=== PATIENT | female | born 1945 | race Hispanic/Latino ===

== ENCOUNTER 2018-02-01 07:29 | Day surgery (SDC) | payer OTHER ==
--- OUTSIDE RECORDS SUMMARY | 2018-02-01 07:31 | XMS REPORT ---
:1945 [facility] Team Providers Name Role Phone Maddy Youngblood Provider Role Unavailable Allergies, Adverse Reactions, Alerts Substance Reaction Event Type N.K.D.A. 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 Problem Incontinence of urine R32 Active Problem Frequency-urgency syndrome N31.8 Active Problem Anemia, unspecified type D64.9 Active Problem Stress incontinence N39.3 Active Problem Hyperlipidemia, mixed E78.2 Active Problem Occlusion and stenosis of I65.29 Active unspecified carotid artery Problem Melanotic stools K92.1 Active Problem Overactive bladder N32.81 Active Assessment Frequency-urgency syndrome N31.8 Active Problem History of carotid endarterectomy Z98.890 Active Assessment Stress incontinence N39.3 Active Problem PAD (peripheral artery disease) I73.9 Active Assessment Itching in the vaginal area N89.8 Active Problem Diabetes type 2, uncontrolled E11.65 Active Medications Medication Code Code Instructions Start End Date Status Dosage System Date Diflucan [facility] 73085857297 150 MG Orally January 02, Active 1 tablet Once a day 2017 Estrace [facility] 26130041912 0.1 MG/GM January 02, Active as Vaginal twice 2018 directed weekly Clopidogrel [facility] 58205271893 75 MG Orally Active 1 tablet Bisulfate Once a day Farxiga [facility] 77941273086 10mg By Mouth Active 1 Daily Metformin HCl [facility] 90713015379 1000 MG Orally Active 1 tablet Twice a day with meals -81 [facility] 40586397793 81 MG Orally Active 1 tablet Once a day Lisinopril [facility] 29462721130 10 MG Orally Active 1 tablet Once a day Metoprolol [facility] 73093143320 25 MG Orally Active 1 tablet Tartrate Twice a day with food Vytorin [facility] 12445628041 10-20 MG Orally Active 1 tablet Once a day Oxybutynin [facility] [address]-35 3.9 MG/24HR January 02September Active 1 patch to Transdermal Two 2017 skin times a Week Results Name Result Date Reference Range Unit Abnormality Flag URINALYSIS AUTO W/O SCOPE (91931) ----LATA neg 20180102 ----NIT neg 20180102 ----PROTEIN neg 20180102 ----pH 5.0 20180102 ----BLO trace 20180102 ----GLUCOSE 2+ 20180102 ----BILIRUBIN neg 20180102 ----KETONES neg 20180102 ----SPECIFIC GRAVITY 1.010 20180102 PVR ----PVR 0 20180102 Summary Purpose eClinicalWorks Submission
--- OUTSIDE RECORDS SUMMARY | 2018-02-01 07:31 | XMS REPORT ---
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 Problem History of carotid endarterectomy Z98.890 Active Problem Hyperlipidemia, mixed E78.2 Active Problem Occlusion and stenosis of I65.29 Active unspecified carotid artery Assessment History of carotid endarterectomy Z98.890 Active Assessment 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 89519720347 1000 MG Orally Active 1 tablet Twice a day with meals Farxiga [facility] 35671774152 10mg By Mouth October 10, December 09, Active 1 Daily 2017 2017 Metoprolol [place] 24200036431 25 MG Orally Active 1 tablet Tartrate Twice a day with food Aspir-81 [facility] 76048774242 81 MG Orally Active 1 tablet Once a day Vytorin [facility] 70047960138 10-20 MG Orally Active 1 tablet Once a day Clopidogrel [facility] 80600444872 75 MG Orally Active 1 tablet Bisulfate Once a day Lisinopril [facility] 33291302055 10 MG Orally Active 1 tablet Once a day Results No Known Results Summary Purpose eClinicalWorks Submission
--- OUTSIDE RECORDS SUMMARY | 2018-02-01 07:31 | XMS REPORT ---
:1945 Author Organization eClinicalWorks Care Team Providers Name Role Phone Louis Garcia Provider Role Unavailable Allergies, Adverse Reactions, Alerts [...] K92.1 Active Problem Overactive bladder N32.81 Active Problem History of carotid endarterectomy Z98.890 Active Assessment Anemia, unspecified type D64.9 Active Problem PAD (peripheral artery disease) I73.9 Active Assessment Encounter for screening colonoscopy Z12.11 Active Problem Diabetes type 2, uncontrolled E11.65 Active Medications Medication Code Code Instructions Start End Date Status Dosage System Date [facility] 06135982101 10mg By Mouth Active 1 Daily Clopidogrel [facility] 54400995110 75 MG Orally Active 1 tablet Bisulfate Once a day Lisinopril [facility] 42474937977 10 MG Orally Active 1 tablet Once a day Oxybutynin [facility] [address]-83 3.9 MG/24HR January 02September Active 1 patch to Transdermal Two 2017 skin times a Week Metformin HCl ND 58070351233 1000 MG Orally Active 1 tablet Twice a day with meals - [facility] 69484355184 81 MG Orally Active 1 tablet Once a day Diflucan [facility] 90991312280 150 MG Orally January 02, Active 1 tablet Once a day 2018 Estrace [facility] 45185595554 0.1 MG/GM January 02, Active as Vaginal twice 2018 directed weekly Metoprolol [facility] 99134578469 25 MG Orally Active 1 tablet Tartrate Twice a day with food Vytorin [facility] 63173775890 10-20 MG Orally Active 1 tablet Once a day Results No Known Results Summary Purpose eClinicalWorks Submission
--- OUTSIDE RECORDS SUMMARY | 2018-02-01 07:31 | XMS REPORT ---
:1945 Author Organization eClinicalWorks Care Team Providers Name Role Phone Louis Garcia Provider Role Unavailable Allergies No Known Allergies [...] History of carotid endarterectomy Z98.890 Active Problem PAD (peripheral artery disease) I73.9 Active Problem Diabetes type 2, uncontrolled E11.65 Active Medications No Known Medications Results No Known Results Summary Purpose eClinicalWorks Submission
--- OUTSIDE RECORDS SUMMARY | 2018-02-01 07:31 | XMS REPORT ---
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 Problem Incontinence of urine R32 Active Problem Hyperlipidemia, mixed E78.2 Active Problem Occlusion and stenosis of I65.29 Active unspecified carotid artery Assessment Occlusion and stenosis of I65.29 Active unspecified carotid artery Assessment Hyperlipidemia, mixed E78.2 Active Assessment History of carotid endarterectomy Z98.890 Active Assessment 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 Assessment Anemia, unspecified type D64.9 Active Assessment Overactive bladder N32.81 Active Assessment Benign essential HTN I10 Active Assessment Diabetes type 2, uncontrolled E11.65 Active Assessment Melanotic stools K92.1 Active Problem History of carotid endarterectomy Z98.890 Active Medications Medication Code Code Instructions Start End Status Dosage System Date Date Lisinopril [facility] 95613949835 10 MG Orally Active 1 tablet Once a day Metformin HCl [facility] 25566730113 1000 MG Orally Active 1 tablet Twice a day with meals Metoprolol [facility] 59051299159 25 MG Orally Active 1 tablet Tartrate Twice a day with food Vytorin [facility] 50676404445 10-20 MG Orally Active 1 tablet Once a day Clopidogrel [facility] 36374901644 75 MG Orally Active 1 tablet Bisulfate Once a day Farxiga [facility] 89424775112 10mg By Mouth Active 1 Daily Aspir-81 [facility] 58814139379 81 MG Orally Active 1 tablet Once a day Results No Known Results Summary Purpose eClinicalWorks Submission
[2018-02-01] MEDS ORDERED: NA CHLORIDE 0.9% 1,000 ML ONE (07:37)
[2018-02-01] MEDS ORDERED: LIDOCAINE 1% MPF 5 ML VIAL ONE (08:26)
[2018-02-01] MEDS ORDERED: PROPOFOL 200 MG/20 ML VIAL IV ONE (08:26)
[2018-02-01] MEDS ORDERED: EPHEDRINE SULF 50 MG/10 ML SYR ONE (08:56)
[2018-02-01] MEDS ORDERED: EPHEDRINE SULF 50 MG/ML SYR ONE (08:56)
[2018-02-01] MEDS ORDERED: NS 0.9% VIAL 10 ML ONE (08:57)
--- NOTE | 2018-02-08 09:23 | ENDO RPT ---
[address], [address] EGD PROCEDURE REPORT EXAM DATE: 02/01/2018 PATIENT NAME: Sherri Parekh MR#: [id number] BIRTHDATE: 1945 ATTENDING: Louis Garcia DR STATUS: outpatient PERSONAL FINANCE INSTRUCTOR: Elizabeth Wagner and Mercedez Phillip RN INDICATIONS: The patient is a 73 yr old Female here for an EGD due to anemia PROCEDURE PERFORMED: EGD with biopsy for H. pylori MEDICATIONS: Per Anesthesia. TOPICAL ANESTHETIC: none CONSENT: The patient understands the risks and benefits of the procedure and understands that these risks include, but are not limited to: sedation, allergic reaction, infection, perforation and/or bleeding. Alternative means of evaluation and treatment include, among others: physical exam, x-rays, and/or surgical intervention. The patient elects to proceed with this endoscopic procedure. DESCRIPTION OF PROCEDURE: During intra-op preparation period all mechanical medical equipment was checked for proper function. Hand hygiene and appropriate measures for infection prevention was taken. Procedure, possible complications, and alternatives including but not limited to the possibility of bleeding, perforation, tear, infection, sepsis, need for surgery, need for blood transfusion, and anesthesia related complications were explained to the patient. After the risks, benefits and alternatives of the procedure were thoroughly explained, Informed consent was verified, confirmed and timeout was successfully executed by the treatment team. The patient was placed in the left lateral position. The patient was anesthetized with topical anesthesia. Through the anesthetized oropharyngeal area, the scope was passed without any difficulty. The [id number] ([id number]) endoscope was introduced through the mouth and advanced to the second portion of the duodenum. Retroflexed views revealed no abnormalities. The gastroscope was then slowly withdrawn and removed. Duodenitis was found in the bulb of the duodenum. A biopsy for H. pylori was taken. Mild gastritis was found in the body and the antrum of the stomach. A biopsy for H. pylori was taken. Multiple erosions were found in the body and the antrum of the stomach. A biopsy for H. pylori was taken. ADVERSE EVENTS: There were no complications. IMPRESSIONS: 1. Duodenitis was found in the bulb of the duodenum 2. Mild gastritis was found in the body and the antrum of the stomach 3. Multiple erosions were found in the body and the antrum of the stomach RECOMMENDATIONS: 1. anti-reflux regimen 2. await biopsy results 3. avoid NSAIDS 4. Pepcid 40 mg qd 5. follow-up: office 2 week(s) REPEAT EXAM: Louis Garcia DR eSigned: Louis Garcia DR 02/08/2018 9:15 AM cc: CPT CODES: ICD9 CODES: PATIENT NAME: Sherri Parekh MR#: [id number]
--- NOTE | 2018-02-08 09:23 | ENDO RPT ---
[address], [address] COLONOSCOPY PROCEDURE REPORT EXAM DATE: 02/01/2018 PATIENT NAME: Sherri Parekh MR #: [id number] BIRTHDATE: 1945 ATTENDING: Louis Garcia DR STATUS: outpatient CHILD CARE DEVELOPMENT SPECIALIST: Elizabeth Wagner and Mercedez Phillip RN INDICATIONS: The patient is a 72 yr old Female here for a colonoscopy due to colon cancer screening PROCEDURE PERFORMED: Colonoscopy with biopsy - cold polypectomy MEDICATIONS: Per Anesthesia. ESTIMATED BLOOD LOSS: None CONSENT: The patient understands the risks and benefits of the procedure and understands that these risks include, but are not limited to: sedation, allergic reaction, infection, perforation and/or bleeding. Alternative means of evaluation and treatment include, among others: physical exam, x-rays, and/or surgical intervention. The patient elects to proceed with this endoscopic procedure. DESCRIPTION OF PROCEDURE: During intra-op preparation period all mechanical medical equipment was checked for proper function. Hand hygiene and appropriate measures for infection prevention was taken. Procedure, possible complications, alternatives including, but not limited to possibility of bleeding, perforation, tear, infection, sepsis, need for surgery, need for blood transfusion, were explained to the patient. After the risks, benefits and alternatives of the procedure were thoroughly explained, Informed consent was verified, confirmed and timeout was successfully executed by the treatment team. The patient was placed in the left lateral position. A digital rectal exam was performed and revealed internal hemorrhoids. After appropriate level of anesthesia, the scope was passed. The [id number] ([id number]) and EC-[id number] ([id number]) endoscope was introduced through the anus and advanced to the cecum, which was identified by both the appendix and ileocecal valve. The quality of the prep was fair. The instrument was then slowly withdrawn as the colon was fully examined. Scope withdrawal time was 10 minutes. COLON FINDINGS: A small smooth semi-pedunculated polyp was found in the sigmoid colon. A polypectomy was performed with cold forceps. The resection was complete, the polyp tissue was completely retrieved and sent to histology. Moderate diverticulosis was noted in the sigmoid colon. No bleeding was noted from the diverticulosis. Retroflexed views revealed no abnormalities. The scope was then completely withdrawn from the patient and the procedure terminated. ADVERSE EVENTS: There were no complications. IMPRESSIONS: 1. Diverticulosis 2. Diverticulosis/sigmoid colon 3. Sigmoid polyp 4. S/p snare polypectomy RECOMMENDATIONS: 1. follow-up: office 2 week(s) 2. avoid NSAIDS for 2 weeks 3. await biopsy results 4. increase dietary water 5. low fiber / diverticular diet RECALL: Return in 5 year(s) for Colonoscopy, pending biopsy results. Louis Garcia DR eSigned: Louis Garcia DR 02/08/2018 9:20 AM cc: CPT CODES: ICD9 CODES: PATIENT NAME: Sherri ParekhAviva MR#: [id number]
== END 2018-02-01 09:40 | disposition home or self-care (01) ==
LOC: OR 07:29
PROVIDERS: ATTEND Surgery
PROC: 0DBN8ZX Excision of Sigmoid Colon, Via Natural or Artificial Opening Endoscopic, Diagnostic (ICD-10-PCS; principal; 2018-02-01 08:30)
DX: Z12.11 Encounter for screening for malignant neoplasm of colon (principal); Z80.0 Family history of malignant neoplasm of digestive organs; E11.65 Type 2 diabetes mellitus with hyperglycemia; Z79.84 Long term (current) use of oral hypoglycemic drugs; I10 Essential (primary) hypertension; E78.5 Hyperlipidemia, unspecified; E78.2 Mixed hyperlipidemia; I25.10 Atherosclerotic heart disease of native coronary artery without angina pectoris; Z95.1 Presence of aortocoronary bypass graft; R32 Unspecified urinary incontinence; D64.9 Anemia, unspecified; K29.80 Duodenitis without bleeding; K21.9 Gastro-esophageal reflux disease without esophagitis; K63.5 Polyp of colon; K57.30 Diverticulosis of large intestine without perforation or abscess without bleeding; K64.8 Other hemorrhoids
CPT/HCPCS: 45380; 82962; 88305; 88312; J7030

== ENCOUNTER 2018-03-12 15:32 | Emergency (ER) | payer OTHER ==
--- OUTSIDE RECORDS SUMMARY | 2018-03-12 15:34 | XMS REPORT ---
[...] Status Dosage System Date Date Metformin HCl [facility] 97782833568 1000 MG Orally Active 1 tablet Twice a day with meals Farxiga [facility] 96777075761 10mg By Mouth October 10, December 09, Active 1 Daily 2017 2017 [place] 81672174736 25 MG Orally Active 1 tablet Tartrate Twice a day with food Aspir-81 [facility] 83244769864 81 MG Orally Active 1 tablet Once a day Vytorin [facility] 59246472895 10-20 MG Orally Active 1 tablet Once a day Clopidogrel [facility] 28139730735 75 MG Orally Active 1 tablet Bisulfate Once a day Lisinopril [facility] 41942947041 10 MG Orally Active 1 tablet Once a day Results No Known Results Summary Purpose eClinicalWorks Submission
--- OUTSIDE RECORDS SUMMARY | 2018-03-12 15:34 | XMS REPORT ---
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 Problem Frequency-urgency syndrome N31.8 Active Problem Iron deficiency anemia, unspecified D50.9 Active iron deficiency anemia type Problem Stress incontinence N39.3 Active Problem Overactive bladder N32.81 Active Problem Hyperlipidemia, mixed E78.2 Active Problem Anemia, unspecified type D64.9 Active Problem Melanotic stools K92.1 Active Problem History of carotid endarterectomy Z98.890 Active Problem PAD (peripheral artery disease) I73.9 Active Problem Diabetes type 2, uncontrolled E11.65 Active Problem Benign essential HTN I10 Active Medications No Known Medications Results No Known Results Summary Purpose [employer] Submission
--- OUTSIDE RECORDS SUMMARY | 2018-03-12 15:34 | XMS REPORT ---
:1945 Author Organization eClinicalWorks Care Team Providers Name Role Phone Maddy Youngblood Provider Role Unavailable Allergies, Adverse Reactions, Alerts Substance Reaction Event Type N.K.D.A. Info Not Available Non Drug Allergy Problems Problem Type Condition Code Onset Dates Condition Status Problem Occlusion and stenosis of I65.29 Active unspecified carotid artery Problem Overactive bladder N32.81 Active Problem Hyperlipidemia, mixed E78.2 Active Problem Duodenitis K29.80 Active Problem Frequency-urgency syndrome N31.8 Active Problem GERD with esophagitis K21.0 Active Problem Anemia, unspecified type D64.9 Active Problem Melanotic stools K92.1 Active Problem Stress incontinence N39.3 Active Problem Iron deficiency anemia, unspecified D50.9 Active iron deficiency anemia type Assessment Frequency-urgency syndrome N31.8 Active Assessment Stress incontinence N39.3 Active Assessment Itching in the vaginal area N89.8 Active Problem Diabetes type 2, uncontrolled E11.65 Active Problem Benign essential HTN I10 Active Problem History of carotid endarterectomy Z98.890 Active Problem Incontinence of urine R32 Active Problem PAD (peripheral artery disease) I73.9 Active Problem 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
--- OUTSIDE RECORDS SUMMARY | 2018-03-12 15:34 | XMS REPORT ---
:1945 [facility] Care Team Providers Name Role Phone Maddy [...] End Date Status Dosage System Date Diflucan [facility] 30528302043 150 MG Orally January 02, Active 1 tablet Once a day 2017 Estrace [facility] 25224757142 0.1 MG/GM January 02, Active as Vaginal twice 2018 directed weekly Clopidogrel [facility] 54752501504 75 MG Orally Active 1 tablet Bisulfate Once a day Farxiga [facility] 22025672770 10mg By Mouth Active 1 Daily Metformin HCl [facility] 67231026490 1000 MG Orally Active 1 tablet Twice a day with meals -81 [facility] 57449813479 81 MG Orally Active 1 tablet Once a day Lisinopril [facility] 50634926401 10 MG Orally Active 1 tablet Once a day Metoprolol [facility] 58372509628 25 MG Orally Active 1 tablet Tartrate Twice a day with food Vytorin [facility] 97867766421 10-20 MG Orally Active 1 tablet Once a day Oxybutynin [facility] [address]-89 3.9 MG/24HR January 02September Active 1 patch to Transdermal Two 2017 skin times a Week Results Name Result Date Reference Range Unit Abnormality Flag URINALYSIS AUTO W/O SCOPE (90941) ----LATA neg 20180102 ----NIT neg 20180102 ----PROTEIN neg 20180102 ----pH 5.0 20180102 ----BLO trace 20180102 ----GLUCOSE 2+ 20180102 ----BILIRUBIN neg 20180102 ----KETONES neg 20180102 ----SPECIFIC GRAVITY 1.010 20180102 PVR ----PVR 0 20180102 Summary Purpose eClinicalWorks Submission
--- OUTSIDE RECORDS SUMMARY | 2018-03-12 15:34 | XMS REPORT ---
[...] End Status Dosage System Date Date Lisinopril [facility] 62482143211 10 MG Orally Active 1 tablet Once a day Metformin HCl [facility] 27387247498 1000 MG Orally Active 1 tablet Twice a day with meals Metoprolol [facility] 50477701550 25 MG Orally Active 1 tablet Tartrate Twice a day with food Vytorin [facility] 59161815095 10-20 MG Orally Active 1 tablet Once a day Clopidogrel [facility] 52125080282 75 MG Orally Active 1 tablet Bisulfate Once a day Farxiga [facility] 66144474403 10mg By Mouth Active 1 Daily Aspir-81 [facility] 05478489172 81 MG Orally Active 1 tablet Once a day Results No Known Results Summary Purpose eClinicalWorks Submission
--- OUTSIDE RECORDS SUMMARY | 2018-03-12 15:34 | XMS REPORT ---
[...] Problem Benign essential HTN I10 Active Medications Medication Code System Code Instructions Start Date End Date Status Dosage Pepcid [facility] 42167036282 20 MG Orally BID February 12, Active 1 tablet 2017 Results No Known Results Summary Purpose eClinicalWorks Submission
--- OUTSIDE RECORDS SUMMARY | 2018-03-12 15:34 | XMS REPORT ---
[...] Start End Date Status Dosage System Date [facility] 06048958009 10mg By Mouth Active [address] [facility] 73230379926 75 MG Orally Active 1 tablet Bisulfate Once a day Lisinopril [facility] 50550528096 10 MG Orally Active 1 tablet Once a day Oxybutynin [facility] [address]-35 3.9 MG/24HR January 02September Active 1 patch to Transdermal Two 2017 skin times a Week Metformin HCl [place] 59833245126 1000 MG Orally Active 1 tablet Twice a day with meals - [facility] 71542318680 81 MG Orally Active 1 tablet Once a day Diflucan [facility] 93339411602 150 MG Orally January 02, Active 1 tablet Once a day [address] [facility] 53189057092 0.1 MG/GM January 02, Active as Vaginal twice 2018 directed weekly Metoprolol [facility] 99258756477 25 MG Orally Active 1 tablet Tartrate Twice a day with food Vytorin [facility] 24012102814 10-20 MG Orally Active 1 tablet Once a day Results No Known Results Summary Purpose eClinicalWorks Submission
--- OUTSIDE RECORDS SUMMARY | 2018-03-12 15:34 | XMS REPORT ---
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 Assessment History of carotid endarterectomy Z98.890 Active Problem Stress incontinence N39.3 Active Problem Overactive bladder N32.81 Active Problem Hyperlipidemia, mixed E78.2 Active Problem Anemia, unspecified type D64.9 Active Problem Melanotic stools K92.1 Active Assessment Iron deficiency anemia, unspecified D50.9 Active iron deficiency anemia type Assessment Benign essential HTN I10 Active Assessment Overactive bladder N32.81 Active Assessment Hyperlipidemia, mixed E78.2 Active Problem History of carotid endarterectomy Z98.890 Active Problem PAD (peripheral artery disease) I73.9 Active Assessment Diabetes type 2, uncontrolled E11.65 Active Problem Diabetes type 2, uncontrolled E11.65 Active Assessment PAD (peripheral artery disease) I73.9 Active Problem Benign essential HTN I10 Active Medications Medication Code Code Instructions Start End Date Status Dosage System Date Estrace [facility] 87060742676 0.1 MG/GM January 02, Active as Vaginal twice 2017 directed weekly Oxybutynin [facility] [address]-35 3.9 MG/24HR January 02September Active 1 patch to Transdermal Two 2017 skin times a Week Metoprolol [facility] 73384569050 50 MG Orally Active 1 tablet Tartrate Twice a day with food Clopidogrel ND 79279990755 75 MG Orally Active 1 tablet Bisulfate Once a day Farxiga [facility] 94046926640 10mg By Mouth Active 1 Daily Metformin HCl [facility] 11852164677 1000 MG Orally Active 1 tablet Twice a day with meals Aspir-81 [facility] 33131107121 81 MG Orally Active 1 tablet Once a day Vytorin [facility] 36337080668 10-20 MG Orally Active 1 tablet Once a day Lisinopril [facility] 79826684062 10 MG Orally Active 1 tablet Once a day Ferrous [facility] 07366708167 325 (65 Fe) MG February 06, Active 1 tablet Sulfate Orally Twice a 2017 Results No Known Results Summary Purpose eClinicalWorks Submission
--- OUTSIDE RECORDS SUMMARY | 2018-03-12 15:34 | XMS REPORT ---
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 13277392807 0.1 MG/GM January 02, Active as Vaginal twice 2018 directed weekly Metformin HCl [facility] 79996210993 1000 MG Orally Active 1 tablet Twice a day with meals Metoprolol [facility] 19650647196 50 MG Orally Active 1 tablet Tartrate Twice a day with food Ferrous [facility] 60028251222 325 (65 Fe) MG February 06, Active 1 tablet Sulfate Orally Twice a [address] [facility] 97551465188 75 MG Orally Active 1 tablet Bisulfate Once a day Pepcid [facility] 09150763424 20 MG Orally February 12, Active 1 tablet BID [address] [facility] 81115063447 10 MG Orally Active 1 tablet Once a day Farxiga [facility] 78337580813 10mg By Mouth Active [address] [facility] 62198901093 10-20 MG Orally Active 1 tablet Once a day Aspir-[address] [facility] 08900385577 81 MG Orally Active 1 tablet Once a day Oxybutynin [facility] [address]-12 3.9 MG/24HR January 02September Active 1 patch to Transdermal Two 2017 skin times a Week Results No Known Results Summary Purpose eClinicalWorks Submission
[2018-03-12] MEDS ORDERED: HYDROCODONE/APAP 5/325 MG TAB ONE (16:08)
--- NOTE | 2018-03-12 17:03 | EDPHYS ---
Physician Documentation [facility] Name: Sherri Parekh Age: 73 yrs Sex: Female : 1945 Arrival Date: 03/12/2018 Time: 15:33 Bed 5 Private MD: Fidel [facility] ED Physician Juventino Walden HPI: 03/12 16:00 This 73 yrs old Female presents to ER via Wheelchair with complaints of Fall jacqueline Injury. 16:00 Details of fall: The patient fell from an upright position, while walking. jacqueline Historical: - Allergies: 15:48 No Known Allergies; ph - Home Meds: 15:48 clopidogrel 75 mg Oral tab 1 tab once daily [Active]; glimepiride 4 mg Oral tab 1 tab ph once daily [Active]; lisinopril 10 mg Oral tab 1 tab once daily [Active]; metformin 500 mg Oral Tb24 1 tab once daily [Active]; Myrbetriq 50 mg Oral Tb24 1 tab once daily [Active]; Vytorin 10-20 10-20 mg Oral tab 1 tab once daily [Active]; - PMHx: 15:48 CAD; Diabetes - NIDDM; High Cholesterol; Hypertension; ph - PSHx: 15:48 Carotid surgery; ph - Immunization history:: Adult Immunizations unknown. - Social history:: Smoking status: Patient/guardian denies using tobacco. - Ebola Screening: : No symptoms or risks identified at this time. ROS: 16:00 Constitutional: Negative for fever, chills, and weight loss, Eyes: Negative for injury, jacqueline pain, redness, and discharge, ENT: Negative for injury, pain, and discharge, Neck: Negative for injury, pain, and swelling, Cardiovascular: Negative for chest pain, palpitations, and edema, Respiratory: Negative for shortness of breath, cough, wheezing, and pleuritic chest pain, Abdomen/GI: Negative for abdominal pain, nausea, vomiting, diarrhea, and constipation, Back: Negative for injury and pain, : Negative for injury, bleeding, discharge, and swelling, Skin: Negative for injury, rash, and discoloration, Neuro: Negative for headache, weakness, numbness, tingling, and seizure, Psych: Negative for depression, anxiety, suicide ideation, homicidal ideation, and hallucinations, Allergy/Immunology: Negative for hives, rash, and allergies, Endocrine: Negative for neck swelling, polydipsia, polyuria, polyphagia, and marked weight changes, Hematologic/Lymphatic: Negative for swollen nodes, abnormal bleeding, and unusual bruising. 16:00 MS/extremity: Positive for decreased range of motion, pain, swelling, tenderness, of the left lateral ankle, left medial ankle, left parikh and anterior aspect of left ankle. Exam: 16:00 Constitutional: This is a well developed, well nourished patient who is awake, alert, jacqueline and in no acute distress. Head/Face: Normocephalic, atraumatic. Eyes: Pupils equal round and reactive to light, extra-ocular motions intact. Lids and lashes normal. Conjunctiva and sclera are non-icteric and not injected. Cornea within normal limits. Periorbital areas with no swelling, redness, or edema. ENT: Nares patent. No nasal discharge, no septal abnormalities noted. Tympanic membranes are normal and external auditory canals are clear. Oropharynx with no redness, swelling, or masses, exudates, or evidence of obstruction, uvula midline. Mucous membranes moist. Neck: Trachea midline, no thyromegaly or masses palpated, and no cervical lymphadenopathy. Supple, full range of motion without nuchal rigidity, or vertebral point tenderness. No Meningismus. Chest/axilla: Normal chest wall appearance and motion. Nontender with no deformity. No lesions are appreciated. Cardiovascular: Regular rate and rhythm with a normal S1 and S2. No gallops, murmurs, or rubs. Normal PMI, no JVD. No pulse deficits. Respiratory: Lungs have equal breath sounds bilaterally, clear to auscultation and percussion. No rales, rhonchi or wheezes noted. No increased work of breathing, no retractions or nasal flaring. Abdomen/GI: Soft, non-tender, with normal bowel sounds. No distension or tympany. No guarding or rebound. No evidence of tenderness throughout. Back: No spinal tenderness. No costovertebral tenderness. Full range of motion. Female : Normal external genitalia. Skin: Warm, dry with normal turgor. Normal color with no rashes, no lesions, and no evidence of cellulitis. Neuro: Awake and alert, GCS 15, oriented to person, place, time, and situation. Cranial nerves II-XII grossly intact. Motor strength 5/5 in all extremities. Sensory grossly intact. Cerebellar exam normal. Normal gait. Psych: Awake, alert, with orientation to person, place and time. Behavior, mood, and affect are within normal limits. 16:00 Musculoskeletal/extremity: Extremities: noted in the left first toe, left second toe, left third toe, left fourth toe and Left fifth toenail: deformity, pain, noted in the left parikh: pain. Vital Signs: 15:44 BP 151 / 60; Pulse 71; Resp 16; Pulse Ox 98% on R/A; hb 15:48 Weight 46.27 kg; Height 4 ft. 9 in. (144.78 cm); Pain 9/10; ph 17:00 BP 136 / 76; Pulse 82; Resp 15; Pulse Ox 100% on R/A; hb 15:48 Body Mass Index 22.07 (46.27 kg, 144.78 cm) ph MDM: 15:40 Patient medically screened. [facility] 16:02 Data reviewed: vital signs, nurses notes, radiologic studies, plain films. [facility] 03/12 15:59 Order name: Foot Left 3 View XRAY [facility] 03/12 17:01 Order name: Tib Fib Left EDIN 03/12 17:01 Order name: Ankle Left 3 View [facility] 03/12 15:59 Order name: Ice pack; Complete Time: 16:25 [facility] 03/12 17:02 Order name: Post-op shoe [facility] Administered Medications: 16:08 Drug: [place] 5 mg-325 mg 1 tabs Route: PO; Disposition: 03/12/18 17:02 Discharged to Home. Impression: Fall due to bumping against object, Other sprain of right foot, Pain in left leg - lower. - Condition is Stable. - Discharge Instructions: Foot Contusion, Foot Sprain, Musculoskeletal Pain, Foot Contusion, Wcej-rr-Zquy. - Prescriptions for Tylenol- Codeine #3 300-30 mg Oral Tablet - take 2 tablet by ORAL route every 6 hours As needed; 30 tablet. Motrin IB 200 mg Oral Tablet - take 2 tablet by ORAL route every 6 hours As needed as needed with food; 30 tablet. - Medication Reconciliation Form, Thank You Letter, Antibiotic Education, Prescription Opioid Use form. - Follow up: Glen Fidel; When: 2 - 3 days; Reason: Recheck today's complaints, Continuance of care, Re-evaluation by your physician. Follow up: Donald Ivey; When: 2 - 3 days; Reason: Recheck today's complaints, Continuance of care, Re-evaluation by your physician. - Problem is new. - Symptoms have improved. Signatures: Dispatcher [employer] EDIN Germán Ramirez RN RN Juventino Acevedo MD MD cha Hall, Patricia, RN RN ph Corrections: (The following items were deleted from the chart) 17:01 16:00 Tib Fib Right+RAD.RAD.BRZ ordered. EDIN EDIN 17:01 16:00 Ankle Right 3 View+RAD.RAD.BRZ ordered. [facility] 17:38 17:02 03/12/2018 17:02 Discharged to Home. Impression: Fall due to bumping against sg object; Other sprain of right foot; Pain in left leg - lower. Condition is Stable. Discharge Instructions: Foot Contusion, Foot Sprain, Musculoskeletal Pain, Foot Contusion, Oexk-yf-Yyvh. Prescriptions for Tylenol-Codeine #3 300-30 mg Oral Tablet - take 2 tablet by ORAL route every 6 hours As needed; 30 tablet, Motrin IB 200 mg Oral Tablet - take 2 tablet by ORAL route every 6 hours As needed as needed with food; 30 tablet. and Forms are Medication Reconciliation Form, Thank You Letter, Antibiotic Education, Prescription Opioid Use. Follow up: Glen Parra; When: 2 - 3 days; Reason: Recheck today's complaints, Continuance of care, Re-evaluation by your physician. Follow up: Donald Ivey; When: 2 - 3 days; Reason: Recheck today's complaints, Continuance of care, Re-evaluation by your physician. Problem is new. Symptoms have improved. jacqueline
--- NOTE | 2018-03-12 17:03 | ER ---
Nurse's Notes [facility] Name: Sherri Parekh Age: 73 yrs Sex: Female : 1945 Arrival Date: 03/12/2018 Time: 15:33 Bed 5 Private MD: Glen Parra Diagnosis: Fall due to bumping against object;Other sprain of right foot;Pain in left leg-lower Presentation: 03/12 15:46 Presenting complaint: Patient states: " I tripped over my grandkid's toy and hurt my ph foot." Pt denies other injury or LOC, reports pain in top of R foot near toes, bruising noted to 2nd and 3rd digits, swelling noted to ankle. Transition of care: patient was not received from another setting of care. Onset of symptoms was March 12, 2018. Risk Assessment: Do you want to hurt yourself or someone else? Patient reports no desire to harm self or others. Initial Sepsis Screen: Does the patient meet any 2 criteria? No. Patient's initial sepsis screen is negative. Does the patient have a suspected source of infection? No. Patient's initial sepsis screen is negative. Care prior to arrival: None. 15:46 Method Of Arrival: Wheelchair ph 15:46 Acuity: OTTO 4 ph Historical: - Allergies: 15:48 No Known Allergies; ph - Home Meds: 15:48 clopidogrel 75 mg Oral tab 1 tab once daily [Active]; glimepiride 4 mg Oral tab 1 tab ph once daily [Active]; lisinopril 10 mg Oral tab 1 tab once daily [Active]; metformin 500 mg Oral Tb24 1 tab once daily [Active]; Myrbetriq 50 mg Oral Tb24 1 tab once daily [Active]; Vytorin 10-20 10-20 mg Oral tab 1 tab once daily [Active]; - PMHx: 15:48 CAD; Diabetes - NIDDM; High Cholesterol; Hypertension; ph - PSHx: 15:48 Carotid surgery; ph - Immunization history:: Adult Immunizations unknown. - Social history:: Smoking status: Patient/guardian denies using tobacco. - Ebola Screening: : No symptoms or risks identified at this time. Screenin:00 Abuse screen: Denies threats or abuse. Denies injuries from another. Nutritional hb screening: No deficits noted. Tuberculosis screening: No symptoms or risk factors identified. Fall Risk None identified. Assessment: 16:00 General: Appears in no apparent distress. Behavior is calm, cooperative. Pain: hb Complains of pain in left parikh, left ankle. 16:00 Neuro: Level of Consciousness is awake, alert, obeys commands, Oriented to person, hb place, time, situation. Cardiovascular: Capillary refill < 3 seconds Patient's skin is warm and dry. Respiratory: Airway is patent Trachea midline Respiratory effort is even, unlabored, Respiratory pattern is regular, symmetrical. GI: No signs and/or symptoms were reported involving the gastrointestinal system. : No signs and/or symptoms were reported regarding the genitourinary system. EENT: No signs and/or symptoms were reported regarding the EENT system. Derm: No signs and/or symptoms reported regarding the dermatologic system. Skin is intact, is healthy with good turgor. Musculoskeletal: Reports pain in left ankle, left parikh. 17:00 Reassessment: Patient appears in no apparent distress at this time. No changes from previously documented assessment. Patient and/or family updated on plan of care and expected duration. Pain level reassessed. Patient is alert, oriented x 3, equal unlabored respirations, skin warm/dry/pink. Vital Signs: 15:44 BP 151 / 60; Pulse 71; Resp 16; Pulse Ox 98% on R/A; hb 15:48 Weight 46.27 kg; Height 4 ft. 9 in. (144.78 cm); Pain 9/10; ph 17:00 BP 136 / 76; Pulse 82; Resp 15; Pulse Ox 100% on R/A; hb 15:48 Body Mass Index 22.07 (46.27 kg, 144.78 cm) ph ED Course: 15:33 Patient arrived in ED. mr 15:34 Alexis Chen MD is Private Physician. mr 15:34 Glen Parra DO is Private Physician. mr 15:40 Juventino Walden MD is Attending Physician. [facility] [place] 15:48 Triage completed. ph 15:49 Arm band placed on Patient placed in an exam room. ph 16:00 Patient has correct armband on for positive identification. Bed in low position. Call light in reach. Side rails up X 1. 16:01 Germán Ramirez RN is Primary Nurse. sg 16:27 X-ray completed. Portable x-ray completed in exam room. Patient tolerated procedure mh1 well. 16:28 Foot Left 3 View XRAY In Process Unspecified. EDMS 17:02 Tib Fib Left In Process Unspecified. EDMS 17:02 Ankle Left 3 View In Process Unspecified. EDMS 17:02 Glen Parra DO is Referral Physician. jacqueline 17:02 Donald Ivey MD is Referral Physician. jacqueline 17:15 No provider procedures requiring assistance completed. Patient did not have IV access hb during this emergency room visit. 17:20 Ortho shoe applied to left foot. sg Administered Medications: 16:08 Drug: [place] 5 mg-325 mg 1 tabs Route: PO; sg Outcome: 17:02 Discharge ordered by MD. jacqueline 17:30 Discharged to home ambulatory. hb 17:30 Condition: stable hb 17:30 Discharge instructions given to patient, Instructed on discharge instructions, follow up and referral plans. medication usage, Demonstrated understanding of instructions, follow-up care, medications. 17:38 Patient left the ED. sg Signatures: Dispatcher [employer] EDNY Germán Ramirez RN RN Juventino Acevedo MD MD cha Rivera, Maria Kylee Garner [facility] Mnie Norwood RN RN eJannie Land RN RN hb Corrections: (The following items were deleted from the chart) 17:01 16:28 In radiology for Tib Fib Right+RAD.RAD.BRZ. EDMS EDMS 17:01 16:29 In radiology for Ankle Right 3 View+RAD.RAD.BRZ. EDMS EDMS
--- NOTE | 2018-03-12 17:10 | RAD REPORT ---
EXAM DESCRIPTION: RAD - Tib Fib Left - 03/12/2018 5:01 pm CLINICAL HISTORY: PAIN COMPARISON: None FINDINGS: Left tibia/ fibula, ankle and foot- multiple projections submitted. Vascular calcifications noted. A fracture is noted along the plantar base of the distal phalanx of th e great toe. Mild adjacent soft tissue swelling is seen. No additional fracture evident. A large post erior calcaneal spur is evident.
--- NOTE | 2018-03-13 11:22 | RAD REPORT ---
EXAM DESCRIPTION: RAD - Foot Left 3 View - 03/12/2018 4:30 pm CLINICAL HISTORY: PAIN COMPARISON: None FINDINGS: Left tibia/fibula, ankle and foot- multiple projections submitted. Vascular calcifications noted. A fracture is noted along the plantar base of the distal phalanx of th e great toe. Mild adjacent soft tissue swelling is seen. No additional fracture evident. A large post erior calcaneal spur is evident.
--- NOTE | 2018-03-13 11:22 | RAD REPORT ---
EXAM DESCRIPTION: RAD - Ankle Left 3 View - 03/12/2018 5:01 pm CLINICAL HISTORY: PAIN COMPARISON: None FINDINGS: Left tibia/fibula, ankle and foot- multiple projections submitted. Vascular calcifications noted. A fracture is noted along the plantar base of the distal phalanx of th e great toe. Mild adjacent soft tissue swelling is seen. No additional fracture evident. A large post erior calcaneal spur is evident.
== END 2018-03-12 17:38 | disposition home or self-care (01) ==
LOC: ER 15:32
DX: S93.691A Other sprain of right foot, initial encounter (principal); W18.30XA Fall on same level, unspecified, initial encounter; Y93.01 Activity, walking, marching and hiking; Y92.9 Unspecified place or not applicable; I10 Essential (primary) hypertension; E11.9 Type 2 diabetes mellitus without complications; E78.00 Pure hypercholesterolemia, unspecified
CPT/HCPCS: 99283

== ENCOUNTER 2019-01-04 21:13 | Emergency (ER) | payer OTHER ==
--- OUTSIDE RECORDS SUMMARY | 2019-01-04 21:15 | XMS REPORT ---
[...] End Status Dosage System Date Date Lisinopril [facility] 54456237413 10 MG Orally Active 1 tablet Once a day Metformin HCl [facility] 31715457733 1000 MG Orally Active 1 tablet Twice a day with meals Metoprolol [facility] 30246859591 25 MG Orally Active 1 tablet Tartrate Twice a day with food Vytorin [facility] 82542776196 10-20 MG Orally Active 1 tablet Once a day Clopidogrel [facility] 29815978494 75 MG Orally Active 1 tablet Bisulfate Once a day Farxiga [facility] 18055199042 10mg By Mouth Active 1 Daily Aspir-81 [facility] 14504396452 81 MG Orally Active 1 tablet Once a day Results No Known Results Summary Purpose eClinicalWorks Submission
--- OUTSIDE RECORDS SUMMARY | 2019-01-04 21:15 | XMS REPORT ---
:1945 [facility] Address [facility]ly [facility] [address] [place] [id number] Care Team Providers Name Role Phone Unavailable Unavailable Unavailable Problems This patient has no known problems. Allergies, Adverse Reactions, Alerts This patient has no known allergies or adverse reactions. Medications This patient has no known medications.
--- OUTSIDE RECORDS SUMMARY | 2019-01-04 21:15 | XMS REPORT ---
:1945 [facility] Team Providers Name Role Phone [...] End Date Status Dosage System Date Diflucan [facility] 79464092241 150 MG Orally January 02, Active 1 tablet Once a day 2017 Estrace [facility] 52482201191 0.1 MG/GM January 02, Active as Vaginal twice 2018 directed weekly Clopidogrel [facility] 40784378420 75 MG Orally Active 1 tablet Bisulfate Once a day Farxiga [facility] 77207223882 10mg By Mouth Active 1 Daily Metformin HCl [facility] 73920550626 1000 MG Orally Active 1 tablet Twice a day with meals -81 [facility] 48940596094 81 MG Orally Active 1 tablet Once a day Lisinopril [facility] 48084614274 10 MG Orally Active 1 tablet Once a day Metoprolol [facility] 04226056932 25 MG Orally Active 1 tablet Tartrate Twice a day with food Vytorin [facility] 42935176281 10-20 MG Orally Active 1 tablet Once a day Oxybutynin [facility] [address]-80 3.9 MG/24HR January 02September Active 1 patch to Transdermal Two 2017 skin times a Week Results Name Result Date Reference Range Unit Abnormality Flag URINALYSIS AUTO W/O SCOPE (17876) ----LATA neg 20180102 ----NIT neg 20180102 ----PROTEIN neg 20180102 ----pH 5.0 20180102 ----BLO trace 20180102 ----GLUCOSE 2+ 20180102 ----BILIRUBIN neg 20180102 ----KETONES neg 20180102 ----SPECIFIC GRAVITY 1.010 20180102 PVR ----PVR 0 20180102 Summary Purpose eClinicalWorks Submission
--- OUTSIDE RECORDS SUMMARY | 2019-01-04 21:16 | XMS REPORT ---
:1945 Author Organization eClinicalWorks Care Team Providers Name Role Phone ParraGlen Provider Role Unavailable Allergies, Adverse Reactions, Alerts Substance Reaction Event Type N.K.D.A. 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 Problem Hyperlipidemia, mixed E78.2 Active Problem Melanotic stools K92.1 Active Problem Overactive bladder N32.81 Active Problem GERD with esophagitis K21.0 Active Problem Duodenitis K29.80 Active Assessment Hyperlipidemia, mixed E78.2 Active Assessment Overactive bladder N32.81 Active Problem GERD without esophagitis K21.9 Active Assessment Occlusion and stenosis of I65.29 Active unspecified carotid artery Problem Iron deficiency anemia, unspecified D50.9 Active iron deficiency anemia type Problem Anemia, unspecified type D64.9 Active Problem Frequency-urgency syndrome N31.8 Active Problem Stress incontinence N39.3 Active Problem History of carotid endarterectomy Z98.890 Active Assessment Benign essential HTN I10 Active Assessment Diabetes type 2, uncontrolled E11.65 Active Problem Benign essential HTN I10 Active Problem Incontinence of urine R32 Active Problem PAD (peripheral artery disease) I73.9 Active Problem Diabetes type 2, uncontrolled E11.65 Active Medications Medication Code Code Instructions Start End Status Dosage System Date Date Ferrous ND 09716178392 325 (65 Fe) MG Active 1 tablet Sulfate Orally Twice a day Metformin HCl ND 54539110063 1000 MG Orally Active 1 tablet Twice a day with meals Metoprolol ND 70056561063 50 MG Orally Active 1 tablet Tartrate Twice a day with food -81 ND 70606059319 81 MG Orally Active 1 tablet Once a day Vytorin [facility] 03902088340 10-20 MG Orally Active 1 tablet Once a day Pepcid [facility] [address]-26 20 MG Active 1 TABLET BID ORALLY 30 DAYS Clopidogrel [facility] 07379486692 75 MG Orally Inactive 1 tablet Bisulfate Once a day Lisinopril [facility] 66898650863 10 MG Orally Active 1 tablet Once a day Farxiga [facility] 89005930431 10mg By Mouth Active 1 Daily Estrace [facility] 50613682220 0.1 MG/GM January 02, Active as Vaginal twice 2018 directed weekly Results No Known Results Summary Purpose eClinicalWorks Submission
--- OUTSIDE RECORDS SUMMARY | 2019-01-04 21:16 | XMS REPORT ---
[...] Medications Results No Known Results Summary Purpose [employer] Submission
--- OUTSIDE RECORDS SUMMARY | 2019-01-04 21:16 | XMS REPORT ---
[...] End Date Status Dosage System Date Estrace [facility] 69296968289 0.1 MG/GM January 02, Active as Vaginal twice 2018 directed weekly Metformin HCl [facility] 65774987691 1000 MG Orally Active 1 tablet Twice a day with meals Metoprolol [facility] 42469994484 50 MG Orally Active 1 tablet Tartrate Twice a day with food Ferrous [facility] 16900470628 325 (65 Fe) MG February 06, Active 1 tablet Sulfate Orally Twice a 2018 day Clopidogrel [facility] 96222975740 75 MG Orally Active 1 tablet Bisulfate Once a day Pepcid [facility] 43200355091 20 MG Orally February 12, Active 1 tablet BID 2017 Lisinopril [facility] 20523945133 10 MG Orally Active 1 tablet Once a day Farxiga [facility] 97623348264 10mg By Mouth Active 1 Daily Vytorin [facility] 53166113398 10-20 MG Orally Active 1 tablet Once a day Aspir-81 [facility] 16038694514 81 MG Orally Active 1 tablet Once a day Oxybutynin [facility] [address]-57 3.9 MG/24HR January 02September Active 1 patch to Transdermal Two 2017 skin times a Week Results No Known Results Summary Purpose eClinicalWorks Submission
--- OUTSIDE RECORDS SUMMARY | 2019-01-04 21:16 | XMS REPORT ---
[...] Start Date End Date Status Dosage Pepcid [facility] 85161490576 20 MG Orally BID February 12, Active 1 tablet 2017 Results No Known Results Summary Purpose eClinicalWorks Submission
--- OUTSIDE RECORDS SUMMARY | 2019-01-04 21:16 | XMS REPORT ---
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 Problem Occlusion and stenosis of I65.29 Active unspecified carotid artery Assessment Occlusion and stenosis of I65.29 Active unspecified carotid artery Problem Hyperlipidemia, mixed E78.2 Active Problem Melanotic stools K92.1 Active Problem Overactive bladder N32.81 Active Problem GERD with esophagitis K21.0 Active Problem Duodenitis K29.80 Active Assessment Iron deficiency anemia, unspecified D50.9 Active iron deficiency anemia type Assessment Hyperlipidemia, mixed E78.2 Active Problem GERD without esophagitis K21.9 Active Assessment Overactive bladder N32.81 Active Problem Iron deficiency anemia, unspecified D50.9 [...] End Date Status Dosage System Date [facility] 66791110842 10mg By Mouth Active [address] [facility] 22107049132 75 MG Orally Active 1 tablet Bisulfate Once a day Ferrous [facility] 41805356357 325 (65 Fe) MG Active 1 tablet Sulfate Orally Twice a day Oxybutynin [facility] [address]-16 3.9 MG/24HR January 02September Active 1 patch to Transdermal Two 2017 skin times a Week Vytorin [facility] 82579922124 10-20 MG Orally Active 1 tablet Once a day Aspir-[address] [facility] 38174192736 81 MG Orally Active 1 tablet Once a day Metoprolol [facility] 85478903744 50 MG Orally Active 1 tablet Tartrate Twice a day with food Lisinopril [facility] 78020429462 10 MG Orally Active 1 tablet Once a day Estrace [facility] 99717149252 0.1 MG/GM January 02, Active as Vaginal twice 2018 directed weekly Metformin HCl [facility] 39497055578 1000 MG Orally Active 1 tablet Twice a day with meals Pepcid [facility] [address]-92 20 MG Active 1 TABLET BID ORALLY 30 DAYS Results No Known Results Immunizations Vaccine Administration Date FluAD May 08, 2018 Summary Purpose eClinicalWorks Submission
--- OUTSIDE RECORDS SUMMARY | 2019-01-04 21:16 | XMS REPORT ---
[...] Unit Abnormality Flag URINALYSIS AUTO W/O SCOPE (81937) ----LATA neg [id number] ----NIT neg [id number] ----PROTEIN neg [id number] ----pH 5.0 [id number] ----BLO neg [id number] ----GLUCOSE 3+ [id number] ----BILIRUBIN neg [id number] ----KETONES neg [id number] ----SPECIFIC GRAVITY 1.010 [id number] PVR ----PVR 0 [id number] Summary Purpose eClinicalWorks Submission
--- OUTSIDE RECORDS SUMMARY | 2019-01-04 21:16 | XMS REPORT ---
[...] End Date Status Dosage System Date Estrace [facility] 21513295243 0.1 MG/GM January 02, Active as Vaginal twice 2017 directed weekly Oxybutynin [facility] [address]-24 3.9 MG/24HR January 02September Active 1 patch to Transdermal Two 2017 skin times a Week Metoprolol [facility] 84252874723 50 MG Orally Active 1 tablet Tartrate Twice a day with food Clopidogrel ND 43192251116 75 MG Orally Active 1 tablet Bisulfate Once a day Farxiga [facility] 45037835982 10mg By Mouth Active 1 Daily Metformin HCl [facility] 91929765388 1000 MG Orally Active 1 tablet Twice a day with meals Aspir-81 [facility] 20295978754 81 MG Orally Active 1 tablet Once a day Vytorin [facility] 63637957029 10-20 MG Orally Active 1 tablet Once a day Lisinopril [facility] 12570507523 10 MG Orally Active 1 tablet Once a day Ferrous [facility] 02460599718 325 (65 Fe) MG February 06, Active 1 tablet Sulfate Orally Twice a 2017 Results No Known Results Summary Purpose eClinicalWorks Submission
--- OUTSIDE RECORDS SUMMARY | 2019-01-04 21:16 | XMS REPORT ---
[...] Start End Date Status Dosage System Date [facility] 89598203968 10mg By Mouth Active 1 Daily Clopidogrel [facility] 94273768455 75 MG Orally Active 1 tablet Bisulfate Once a day Lisinopril [facility] 13020525992 10 MG Orally Active 1 tablet Once a day Oxybutynin [facility] [address]-29 3.9 MG/24HR January 02September Active 1 patch to Transdermal Two 2017 skin times a Week Metformin HCl ND 88482203562 1000 MG Orally Active 1 tablet Twice a day with meals - [facility] 12692973815 81 MG Orally Active 1 tablet Once a day Diflucan [facility] 78961560394 150 MG Orally January 02, Active 1 tablet Once a day 2018 Estrace [facility] 86663160186 0.1 MG/GM January 02, Active as Vaginal twice 2018 directed weekly Metoprolol [facility] 16937170912 25 MG Orally Active 1 tablet Tartrate Twice a day with food Vytorin [facility] 55447299960 10-20 MG Orally Active 1 tablet Once a day Results No Known Results Summary Purpose eClinicalWorks Submission
--- OUTSIDE RECORDS SUMMARY | 2019-01-04 21:17 | XMS REPORT ---
:1945 Author Organization eClinicalWorks Care Team Providers Name Role Phone Glen Parra Provider Role Unavailable Allergies No Known Allergies Problems Problem Type Condition Code Onset Dates Condition Status Problem Hyperlipidemia, mixed E78.2 Active Problem Melanotic stools K92.1 Active Problem Overactive bladder N32.81 Active Problem GERD with esophagitis K21.0 Active Problem Duodenitis K29.80 Active Problem GERD without esophagitis K21.9 Active Problem Iron deficiency anemia, unspecified D50.9 Active iron deficiency anemia type Problem Anemia, unspecified type D64.9 Active Problem Frequency-urgency syndrome N31.8 Active Problem Stress incontinence N39.3 Active Problem History of carotid endarterectomy Z98.890 Active Assessment Hyperlipidemia, mixed E78.2 Active Problem Benign essential HTN I10 Active Problem Incontinence of urine R32 Active Problem PAD (peripheral artery disease) I73.9 Active Problem 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
--- OUTSIDE RECORDS SUMMARY | 2019-01-04 21:17 | XMS REPORT ---
[...] Start End Status Dosage System Date Date Vytorin [facility] 78800716308 10-20 MG Orally Active 1 tablet Once a day Metformin HCl ND 73325215102 1000 MG Orally Active 1 tablet Twice a day with meals Myrbetriq ND 71543311351 25 MG Orally October Active 1 tablet Once a day 2018 Pepcid [facility] [address]-48 20 MG Active 1 TABLET BID ORALLY 30 DAYS Farxiga [facility] 37164739617 10mg By Mouth Active 1 Daily Ferrous [facility] 66506446738 325 (65 Fe) MG Active 1 tablet Sulfate Orally Twice a day Metoprolol [facility] 28947633929 50 MG Orally Active 1 tablet Tartrate Twice a day with food Lisinopril [facility] 31220246417 10 MG Orally Active 1 tablet Once a day Estrace [facility] 84130577606 0.1 MG/GM January 02, Active as directed Vaginal twice 2018 weekly Aspir-81 [facility] 86840910976 81 MG Orally Active 1 tablet Once a day Crestor [facility] 49602074240 10 MG Orally Aug 26, Active 1 tablet at Once a day 2018 bedtime Results No Known Results Summary Purpose eClinicalWorks Submission
[2019-01-04] MEDS ORDERED: HYDROCODONE/APAP 5/325 MG TAB ONE (22:18)
--- NOTE | 2019-01-04 22:44 | EDPHYS ---
[facility] Name: Sherri Parekh Age: 73 yrs Sex: Female : 1945 Arrival Date: 01/04/2019 Time: 21:18 Bed 27 Private MD: [facility] ED Physician Juventino Walden HPI: 01/04 22:18 This 73 yrs old Female presents to ER via Wheelchair with complaints of Toe snw Injury. 22:18 The patient presents with a crush injury, from a heavy object, decreased range of snw motion, a deformity, pain. The complaints affect the right foot. Context: The problem was sustained at home, resulted from stubbing toe on the patient can partially bear weight. Onset: The symptoms/episode began/occurred suddenly, and became persistent. Associated signs and symptoms: Pertinent positives: swelling. The patient has not experienced similar symptoms in the past. The patient has not recently seen a physician. Historical: - Allergies: 21:44 No Known Allergies; la1 - PMHx: 21:44 CAD; Diabetes - NIDDM; High Cholesterol; Hypertension; la1 - Immunization history:: Adult Immunizations up to date. - Social history:: Smoking status: Patient/guardian denies using tobacco. - Ebola Screening: : No symptoms or risks identified at this time. ROS: 22:17 Constitutional: Negative for fever, chills, and weight loss, Eyes: Negative for injury, snw pain, redness, and discharge, ENT: Negative for injury, pain, and discharge, Neck: Negative for injury, pain, and swelling, Cardiovascular: Negative for chest pain, palpitations, and edema, Respiratory: Negative for shortness of breath, cough, wheezing, and pleuritic chest pain, Abdomen/GI: Negative for abdominal pain, nausea, vomiting, diarrhea, and constipation, Back: Negative for injury and pain, : Negative for injury, bleeding, discharge, and swelling, Skin: Negative for injury, rash, and discoloration, Neuro: Negative for headache, weakness, numbness, tingling, and seizure. 22:17 MS/extremity: Positive for injury or acute deformity, decreased range of motion, deformity, ecchymosis, pain, swelling, tenderness, of the right second toe. Exam: 22:16 Constitutional: This is a well developed, well nourished patient who is awake, alert, snw and in no acute distress. Head/Face: Normocephalic, atraumatic. Eyes: Pupils equal round and reactive to light, extra-ocular motions intact. Lids and lashes normal. Conjunctiva and sclera are non-icteric and not injected. Cornea within normal limits. Periorbital areas with no swelling, redness, or edema. ENT: Nares patent. No nasal discharge, no septal abnormalities noted. Tympanic membranes are normal and external auditory canals are clear. Oropharynx with no redness, swelling, or masses, exudates, or evidence of obstruction, uvula midline. Mucous membranes moist. Neck: Trachea midline, no thyromegaly or masses palpated, and no cervical lymphadenopathy. Supple, full range of motion without nuchal rigidity, or vertebral point tenderness. No Meningismus. Chest/axilla: Normal chest wall appearance and motion. Nontender with no deformity. No lesions are appreciated. Cardiovascular: Regular rate and rhythm with a normal S1 and S2. No gallops, murmurs, or rubs. Normal PMI, no JVD. No pulse deficits. Respiratory: Lungs have equal breath sounds bilaterally, clear to auscultation and percussion. No rales, rhonchi or wheezes noted. No increased work of breathing, no retractions or nasal flaring. Abdomen/GI: Soft, non-tender, with normal bowel sounds. No distension or tympany. No guarding or rebound. No evidence of tenderness throughout. Back: No spinal tenderness. No costovertebral tenderness. Full range of motion. Skin: Warm, dry with normal turgor. Normal color with no rashes, no lesions, and no evidence of cellulitis. Neuro: Awake and alert, GCS 15, oriented to person, place, time, and situation. Cranial nerves II-XII grossly intact. Motor strength 5/5 in all extremities. Sensory grossly intact. Cerebellar exam normal. Normal gait. Psych: Awake, alert, with orientation to person, place and time. Behavior, mood, and affect are within normal limits. 22:16 Musculoskeletal/extremity: Extremities: grossly normal except: noted in the right second toe: contusion, decreased ROM, ecchymosis, pain, Circulation is intact in all extremities. Sensation intact. Vital Signs: 21:45 BP 172 / 54; Pulse 75; Resp 16; Temp 98.1; Pulse Ox 98% on R/A; Weight 47.17 kg; Height la1 4 ft. 9 in. (144.78 cm); Pain 10/10; 21:45 Body Mass Index 22.51 (47.17 kg, 144.78 cm) la1 Procedures: 22:18 Reduction: of the right second toe, using traction, Immobilized with coban. Patient snw tolerated well. Post reduction film - reveals improved alignment. MDM: 22:10 Patient medically screened. snw 22:44 Data reviewed: vital signs, nurses notes. Data interpreted: Pulse oximetry: on room air snw is 98 %. Interpretation: normal. Counseling: I had a detailed discussion with the patient and/or guardian regarding: the historical points, exam findings, and any diagnostic results supporting the discharge/admit diagnosis, the presence of at least one elevated blood pressure reading (>120/80) during this emergency department visit, radiology results, the need for outpatient follow up, to return to the emergency department if symptoms worsen or persist or if there are any questions or concerns that arise at home. Special discussion: I have referred the patient to see his PCP for further evaluation of high blood pressure. Based on the history and exam findings, there is no indication for further emergent testing or inpatient evaluation. I discussed with the patient/guardian the need to see the primary care provider for further evaluation of the symptoms. 01/04 21:43 Order name: Foot Right 3 View XRAY la1 01/04 22:16 Order name: Foot Right 3 View XRAY snw 01/04 22:41 Order name: [facility] [place]. Order: constantin tape 2nd and 3rd right toe with coban; Complete Time: snw 23:13 01/04 22:41 Order name: Post-op Orthopedic Shoe; Complete Time: 23:13 snw Administered Medications: 22:04 Drug: [place] 5 mg-325 mg 1 tabs Route: PO; la1 22:44 Follow up: Response: No adverse reaction; Pain is decreased la1 23:11 Follow up: Response: No adverse reaction; Pain is decreased la1 Disposition: 01/04/19 22:43 Discharged to Home. Impression: Displaced fracture of medial phalanx of right lesser toe(s), Dislocation of interphalangeal joint of right lesser toe(s). - Condition is Stable. - Discharge Instructions: Cast or Splint Care, Adult, RICE for Routine Care of Injuries, Toe Dislocation, Toe Fracture. - Prescriptions for Tylenol- Codeine #3 300-30 mg Oral Tablet - take 2 tablets by ORAL route every 6 hours As needed; 14 tablet. - Medication Reconciliation Form, Thank You Letter, Antibiotic Education, Prescription Opioid Use form. - Follow up: Glen Parra DO; When: 2 - 3 days; Reason: Recheck today's complaints, Continuance of care, Re-evaluation by your physician. Follow up: Emergency Department; When: As needed; Reason: Worsening of condition. Addendum: 01/06/2019 07:43 Co-signature as Attending Physician, Juventino Walden MD I agree with the assessment and c capps plan of care. Signatures: Dispatcher [employer] Juventino Weinstein MD MD cha Therrien, Shelly, TIMBER ROBBER-C TIMBER ROBBER-Csnw Matthew Patel RN RN la1 Corrections: (The following items were deleted from the chart) 01/04 23:23 22:43 01/04/2019 22:43 Discharged to Home. Impression: Displaced fracture of medial la1 phalanx of right lesser toe(s); Dislocation of interphalangeal joint of right lesser toe(s). Condition is Stable. Forms are Medication Reconciliation Form, Thank You Letter, Antibiotic Education, Prescription Opioid Use. Follow up: Glen Parra; When: 2 - 3 days; Reason: Recheck today's complaints, Continuance of care, Re-evaluation by your physician. Follow up: Emergency Department; When: As needed; Reason: Worsening of condition. snw
--- NOTE | 2019-01-04 22:44 | ER ---
Nurse's Notes [facility] Name: Sherri Parekh Age: 73 yrs Sex: Female : 1945 Arrival Date: 01/04/2019 Time: 21:18 Bed 27 Private MD: Glen Parra Diagnosis: Displaced fracture of medial phalanx of right lesser toe(s);Dislocation of interphalangeal joint of right lesser toe(s) Presentation: 01/04 21:43 Presenting complaint: Patient states: my grandson stepped on my right second toe, I la1 think I broke it. Transition of care: patient was not received from another setting of care. Onset of symptoms was January 04, 2019. Risk Assessment: Do you want to hurt yourself or someone else? Patient reports no desire to harm self or others. Initial Sepsis Screen: Does the patient meet any 2 criteria? No. Patient's initial sepsis screen is negative. Does the patient have a suspected source of infection? No. Patient's initial sepsis screen is negative. Care prior to arrival: None. 21:43 Method Of Arrival: Wheelchair la1 21:43 Acuity: OTTO 4 la1 Historical: - Allergies: 21:44 No Known Allergies; la1 - PMHx: 21:44 CAD; Diabetes - NIDDM; High Cholesterol; Hypertension; la1 - Immunization history:: Adult Immunizations up to date. - Social history:: Smoking status: Patient/guardian denies using tobacco. - Ebola Screening: : No symptoms or risks identified at this time. Screenin:46 Abuse screen: Denies threats or abuse. Nutritional screening: No deficits noted. la1 Tuberculosis screening: No symptoms or risk factors identified. Fall Risk None identified. Assessment: 21:45 General: Appears in no apparent distress. Behavior is calm, cooperative. Pain: la1 Complains of pain in right second toe and Right second toenail. Neuro: Level of Consciousness is awake, alert, obeys commands, Oriented to person, place, time, situation. Cardiovascular: Patient's skin is warm and dry. Respiratory: Airway is patent Respiratory effort is even, unlabored, Respiratory pattern is regular, symmetrical. GI: No signs and/or symptoms were reported involving the gastrointestinal system. : No signs and/or symptoms were reported regarding the genitourinary system. Musculoskeletal: Circulation, motion, and sensation intact. Capillary refill < 3 seconds, is brisk, in bilateral toes. Vital Signs: 21:45 BP 172 / 54; Pulse 75; Resp 16; Temp 98.1; Pulse Ox 98% on R/A; Weight 47.17 kg; Height la1 4 ft. 9 in. (144.78 cm); Pain 10/10; 21:45 Body Mass Index 22.51 (47.17 kg, 144.78 cm) la1 ED Course: 21:18 Patient arrived in ED. es 21:18 Glen Parra DO is Private Physician. es 21:43 Matthew Patel RN is Primary Nurse. la1 21:44 Triage completed. la1 21:45 Arm band placed on left wrist. la1 21:46 Call light in reach. la1 22:00 [facility] snw 22:00 Juventino Walden MD is Attending Physician. snw 22:17 Foot Right 3 View XRAY In Process Unspecified. EDMS 22:40 Foot Right 3 View XRAY In Process Unspecified. EDMS 22:41 Glen Parra DO is Referral Physician. snw 23:23 No provider procedures requiring assistance completed. Patient did not have IV access la1 during this emergency room visit. Administered Medications: 22:04 Drug: Chinquapin 5 mg-325 mg 1 tabs Route: PO; la1 22:44 Follow up: Response: No adverse reaction; Pain is decreased la1 23:11 Follow up: Response: No adverse reaction; Pain is decreased la1 Outcome: 22:43 Discharge ordered by . snw 23:23 Discharged to home via wheelchair. la1 23:23 Condition: stable 23:23 Discharge instructions given to patient, Instructed on discharge instructions, follow up and referral plans. medication usage, Demonstrated understanding of instructions, follow-up care, medications, Prescriptions given X 1. 23:23 Patient left the ED. la1 Signatures: Dispatcher [employer] EDMS Rica Hidalgo FNP-C [employer] Brittany Bates Lee, RN RN la1
--- NOTE | 2019-01-04 23:57 | RAD REPORT ---
EXAM DESCRIPTION: RAD - Foot Right 3 View - 01/04/2019 10:16 pm CLINICAL HISTORY: Right foot pain status post injury FINDINGS: Dislocation involves the second middle phalanx. Mildly displaced fracture involves the dis alba aspect of second proximal phalanx. Fracture extends intraarticularly
--- NOTE | 2019-01-04 23:59 | RAD REPORT ---
EXAM DESCRIPTION: RAD - Foot Right 3 View - 01/04/2019 10:39 pm CLINICAL HISTORY: Right foot pain status post injury FINDINGS: Previously described dislocation involving the second middle phalanx appears reduced
== END 2019-01-04 23:23 | disposition home or self-care (01) ==
LOC: ER 21:13
PROC: 0SSPXZZ Reposition Right Toe Phalangeal Joint, External Approach (ICD-10-PCS; principal; 2019-01-04)
DX: S92.511A Displaced fracture of proximal phalanx of right lesser toe(s), initial encounter for closed fracture (principal); S93.114A Dislocation of interphalangeal joint of right lesser toe(s), initial encounter; W23.0XXA Caught, crushed, jammed, or pinched between moving objects, initial encounter; Y92.009 Unspecified place in unspecified non-institutional (private) residence as the place of occurrence of the external cause; I25.10 Atherosclerotic heart disease of native coronary artery without angina pectoris; I10 Essential (primary) hypertension; E78.00 Pure hypercholesterolemia, unspecified; E11.9 Type 2 diabetes mellitus without complications
CPT/HCPCS: 99283

== ENCOUNTER 2019-08-23 08:43 | Emergency (ER) | payer OTHER ==
--- OUTSIDE RECORDS SUMMARY | 2019-08-23 08:46 | XMS REPORT ---
[...] Status Dosage System Date Date Ferrous ND 72986988058 325 (65 Fe) MG Active 1 tablet Sulfate Orally Twice a day Metformin HCl ND 07460180542 1000 MG Orally Active 1 tablet Twice a day with meals Metoprolol ND 92405319508 50 MG Orally Active 1 tablet Tartrate Twice a day with food -81 ND 53981983242 81 MG Orally Active 1 tablet Once a day Vytorin [facility] 00246891702 10-20 MG Orally Active 1 tablet Once a day Pepcid [facility] [address]-61 20 MG Active 1 TABLET BID ORALLY 30 DAYS Clopidogrel [facility] 18649704334 75 MG Orally Inactive 1 tablet Bisulfate Once a day Lisinopril [facility] 26105053852 10 MG Orally Active 1 tablet Once a day Farxiga [facility] 83887223030 10mg By Mouth Active 1 Daily Estrace [facility] 86701605949 0.1 MG/GM January 02, Active as Vaginal twice 2018 directed weekly Results No Known Results Summary Purpose eClinicalWorks Submission
--- OUTSIDE RECORDS SUMMARY | 2019-08-23 08:46 | XMS REPORT ---
[...] End Date Status Dosage System Date Vytorin [facility] 37897543433 10-20 MG Orally Inactive 1 tablet Once a day Crestor [facility] 14993483362 10 MG Orally Aug 26, Active 1 tablet Once a day 2019 at bedtime Results No Known Results Summary Purpose eClinicalWorks Submission
--- OUTSIDE RECORDS SUMMARY | 2019-08-23 08:46 | XMS REPORT ---
:1945 [facility] [address] [place] [id number] Care Team Providers Name Role Phone Unavailable Unavailable Unavailable Problems This patient has no known problems. Allergies, Adverse Reactions, Alerts This patient has no known allergies or adverse reactions. Medications This patient has no known medications.
--- OUTSIDE RECORDS SUMMARY | 2019-08-23 08:46 | XMS REPORT ---
[...] End Status Dosage System Date Date Vytorin [facility] 46301948994 10-20 MG Orally Active 1 tablet Once a day Metformin HCl ND 47395860521 1000 MG Orally Active 1 tablet Twice a day with meals Myrbetriq ND 05716455639 25 MG Orally October Active 1 tablet Once a day 2018 Pepcid [facility] [address]-52 20 MG Active 1 TABLET BID ORALLY 30 DAYS Farxiga [facility] 62657364448 10mg By Mouth Active 1 Daily Ferrous [facility] 82255969496 325 (65 Fe) MG Active 1 tablet Sulfate Orally Twice a day Metoprolol [facility] 08421874251 50 MG Orally Active 1 tablet Tartrate Twice a day with food Lisinopril [facility] 18314247072 10 MG Orally Active 1 tablet Once a day Estrace [facility] 52688770126 0.1 MG/GM January 02, Active as directed Vaginal twice 2018 weekly Aspir-81 [facility] 41345663797 81 MG Orally Active 1 tablet Once a day Crestor [facility] 36305226191 10 MG Orally Aug 26, Active 1 tablet at Once a day 2018 bedtime Results No Known Results Summary Purpose eClinicalWorks Submission
--- OUTSIDE RECORDS SUMMARY | 2019-08-23 08:47 | XMS REPORT ---
[...] esophagitis K21.9 Active Problem Iron deficiency anemia, D50.9 Active unspecified iron deficiency anemia type Problem Anemia, unspecified type D64.9 Active Problem Frequency-urgency syndrome N31.8 Active Problem Stress incontinence N39.3 Active Problem History of carotid endarterectomy Z98.890 Active Assessment Dislocation of interphalangeal S93.114A Active joint of right lesser toe(s), initial encounter Assessment Displaced fracture of middle S92.521A Active phalanx of right lesser toe(s), initial encounter for closed fracture Problem Benign essential HTN I10 Active Problem Incontinence of urine R32 Active Problem PAD (peripheral artery disease) I73.9 Active Problem 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 Problem Diabetes type 2, uncontrolled E11.65 Active Problem Occlusion and stenosis of I65.29 Active unspecified carotid artery Medications Medication Code Code Instructions Start End Status Dosage System Date Date Vytorin [facility] 72591399321 10-20 MG Orally Active 1 tablet Once a day Metformin HCl ND 55710069004 1000 MG Orally Active 1 tablet Twice a day with meals Estrace [facility] 68440826091 0.1 MG/GM January 02, Active as directed Vaginal twice 2018 weekly Myrbetriq ND 15413752642 25 MG Orally October Active 1 tablet Once a day 2018 Farxiga [facility] 26061444930 10mg By Mouth Active 1 Daily Lisinopril ND 95706515402 10 MG Orally Active 1 tablet Once a day Pepcid [facility] [address]-98 20 MG Active 1 TABLET BID ORALLY 30 DAYS Crestor [facility] 71902720843 10 MG Orally Feb 04, Active 1 tablet at Once a day 2019 bedtime Aspir-81 [facility] 04723190763 81 MG Orally Active 1 tablet Once a day Ferrous [facility] 27401698301 325 (65 Fe) MG Active 1 tablet Sulfate Orally Twice a day Metoprolol [facility] 73957090758 50 MG Orally Active 1 tablet Tartrate Twice a day with food Results No Known Results Summary Purpose eClinicalWorks Submission
--- OUTSIDE RECORDS SUMMARY | 2019-08-23 08:47 | XMS REPORT ---
:1945 Author Organization eClinicalWorks Care Team Providers Name Role Phone Fidel Glen Provider Role Unavailable Allergies No Known Allergies Problems Problem Type Condition Code Onset Dates Condition Status Problem Overactive bladder N32.81 Active Problem Anemia, unspecified type D64.9 Active Problem Melanotic stools K92.1 Active Problem GERD without esophagitis K21.9 Active Problem Duodenitis K29.80 Active Problem Osteoporosis, unspecified M81.0 Active osteoporosis type, unspecified pathological fracture presence Problem Stress incontinence N39.3 Active Problem Iron deficiency anemia, unspecified D50.9 Active iron deficiency anemia type Problem GERD with esophagitis K21.0 Active Problem Frequency-urgency syndrome N31.8 Active Problem History of carotid endarterectomy Z98.890 Active Problem PAD (peripheral artery disease) I73.9 Active Problem Incontinence of urine R32 Active Problem 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
--- OUTSIDE RECORDS SUMMARY | 2019-08-23 08:47 | XMS REPORT ---
:1945 Author Organization eClinicalWorks Care Team Providers Name Role Phone Fdiel Glen Provider Role Unavailable Allergies, Adverse Reactions, Alerts Substance Reaction Event Type N.K.D.A. 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 Problem Occlusion and stenosis of I65.29 Active unspecified carotid artery Assessment Occlusion and stenosis of I65.29 Active unspecified carotid artery Problem Hyperlipidemia, mixed E78.2 Active Assessment Overactive bladder N32.81 Active Problem Overactive bladder N32.81 Active Problem Anemia, unspecified type D64.9 Active Problem Melanotic stools K92.1 Active Problem GERD without esophagitis K21.9 Active Problem Duodenitis K29.80 Active Assessment Benign essential HTN I10 Active Assessment Hyperlipidemia, mixed E78.2 Active Problem Osteoporosis, unspecified M81.0 Active osteoporosis type, unspecified pathological fracture presence Assessment Osteoporosis, unspecified M81.0 Active osteoporosis type, unspecified [...] End Status Dosage System Date Date Lisinopril [facility] 49709996349 10 MG Orally Active 1 tablet Once a day Farxiga [facility] 24684578025 10mg By Mouth Active 1 Daily Crestor [facility] 74125894899 20 MG Orally Active 1 tablet at Once a day bedtime Metformin HCl [facility] 12023906407 1000 MG Orally Active 1 tablet Twice a day with meals Metoprolol [facility] 10084957811 50 MG Orally Active 1 tablet Tartrate Twice a day with food Aspir-81 [facility] 28263879415 81 MG Orally Active 1 tablet Once a day Estrace [facility] 36106186101 0.1 MG/GM January 02, Active as directed Vaginal twice 2018 weekly Ferrous [facility] 17903065985 325 (65 Fe) MG Active 1 tablet Sulfate Orally Twice a day Results No Known Results Summary Purpose eClinicalWorks Submission
--- OUTSIDE RECORDS SUMMARY | 2019-08-23 08:47 | XMS REPORT ---
:1945 Author Organization eClinicalWorks Care Team Providers Name Role Phone Fidel Glen Provider Role Unavailable Allergies, Adverse Reactions, [...] Start End Status Dosage System Date Date Pepcid [facility] [address]-25 20 MG Active 1 TABLET BID ORALLY 30 DAYS - [facility] 88629801412 81 MG Orally Active 1 tablet Once a day Lisinopril [facility] 93851835659 10 MG Orally Active 1 tablet Once a day Metformin HCl [facility] 70032039444 1000 MG Orally Active 1 tablet Twice a day with meals Vytorin [facility] 09599376875 10-20 MG Orally Inactive 1 tablet Once a day Crestor [facility] 99134720387 10 Orally Once Active 1 tablet a day at bedtime Ferrous [facility] 07478229432 325 (65 Fe) MG Active 1 tablet Sulfate Orally Twice a day Estrace [facility] 71382823823 0.1 MG/GM January 02, Active as Vaginal twice 2017 directed weekly Farga [facility] 31591021357 10mg By Mouth Active 1 Daily Metoprolol [facility] 51644320769 50 MG Orally Active 1 tablet Tartrate Twice a day with food Crestor [facility] 76427121070 20 MG Orally Aug 26, Active 1 tablet Once a day 2019 at bedtime Results No Known Results Summary Purpose eClinicalWorks Submission
--- OUTSIDE RECORDS SUMMARY | 2019-08-23 08:47 | XMS REPORT ---
[...] End Date Status Dosage System Date Vytorin [facility] 10345722454 10-20 MG Orally Inactive 1 tablet Once a day Crestor [facility] 20343518723 10 MG Orally Aug 26, Active 1 tablet Once a day 2019 at bedtime Results No Known Results Summary Purpose eClinicalWorks Submission
[2019-08-23 09:27] LABS: Absolute Lymphocytes (CBC) 1.4 K/uL (0.7-4.9); Basophils % 1.1 % (0-1.3); Hematocrit 39.9 % (36.0-45.0); Lymphocytes % 20.6 % (15.3-44.8); MPV 8.9 fL (7.6-11.3); RBC Red Blood Cell Count 4.39 M/uL (3.86-4.86)
[2019-08-23 09:28] LABS: Protime INR 0.85
[2019-08-23] MEDS ORDERED: NA CHLORIDE 0.9% 1,000 ML ONE (09:33)
[2019-08-23 09:45] LABS: ALT/SGPT 17 U/L (12-78); AST/SGOT 17 U/L (15-37); Alkaline Phosphatase 78 U/L (45-117); BUN Blood Urea Nitrogen 20 mg/dL (7-18); Bicarbonate 27 mmol/L (21-32); Bilirubin Direct 0.2 mg/dL (0-0.2); Bilirubin Total 0.9 mg/dL (0.2-1.0); Glucose Level 100 mg/dL (74-106); Magnesium 2.2 mg/dL (1.8-2.4); NT PRO-BNP 298 pg/mL (<450); Potassium 4.3 mmol/L (3.5-5.1); Protein, Total 7.8 g/dL (6.4-8.2); Sodium Level 142 mmol/L (136-145); Troponin (Emerg Dept Use Only) < 0.02 ng/mL (0.0-0.045)
[2019-08-23 09:53] LABS: Urine Blood TRACE (NEG); Urine Glucose 2+ (NEG); Urine Protein 1+ (NEG); Urine Specific Gravity 1.015 (1.005-1.030); Urine pH 5.5 (5.0-7.0)
--- NOTE | 2019-08-23 09:56 | RAD REPORT ---
EXAM DESCRIPTION: CT - Head Brain Wo Cont - 08/23/2019 9:49 am CLINICAL HISTORY: DIZZINESS Headache, drowsiness COMPARISON: Head Brain Wo Cont dated 04/27/2016; HEAD BRAIN W O CONTRAST dated 05/30/2009 TECHNIQUE: All CT scans are performed using dose optimization technique as appropriate and may inclu de automated exposure control or mA/KV adjustment according to patient size. FINDINGS: No intracranial hemorrhage, hydrocephalus or extra-axial fluid collection.Mild generalized brain atrophy is present with mild periventricular and deep white matter chronic microvascular ische shorty changes.No areas of brain edema or evidence of midline shift. The paranasal sinuses and mastoids are clear. The calvarium is intact. IMPRESSION: No acute intracranial abnormality.
[2019-08-23] MEDS ORDERED: CEFTRIAXONE/SWI 1gm 1 GM/10 ML SYR ONE (10:25)
[2019-08-23] MEDS ORDERED: CIPROFLOXACIN HCL 500 MG TAB ONE (11:26)
[2019-08-23] MEDS ORDERED: ASPIRIN EC 81 MG TAB PO ONE (11:26)
[2019-08-23] MEDS ORDERED: MECLIZINE HCL 12.5 MG TAB ONE (11:26)
--- NOTE | 2019-08-23 11:55 | ER ---
Nurse's Notes [facility] Name: Sherri Parekh Age: 74 yrs Sex: Female : 1945 Arrival Date: 08/23/2019 Time: 08:56 Bed 19 Private MD: Diagnosis: Dizziness and giddiness;Essential (primary) hypertension;Urinary tract infection, site not specified Presentation: 08/23 08:57 Presenting complaint: EMS states: that Patient is having dizziness when she sits up in bed starting at 0600 this morning. Denies any N/V. Pt states that she had surgery on her carotid 20 years ago and the doctor told her about 2 weeks ago that it could be blocked again. Vitals on arrival: 162/92, 92, 90%, RR 18. Blood sugar 113. Pt has not had medications today. Transition of care: patient was not received from another setting of care. Onset of symptoms was August 23, 2019. Risk Assessment: Do you want to hurt yourself or someone else? Patient reports no desire to harm self or others. Initial Sepsis Screen: Does the patient meet any 2 criteria? No. Patient's initial sepsis screen is negative. Does the patient have a suspected source of infection? No. Patient's initial sepsis screen is negative. Care prior to arrival: None. 08:57 Method Of Arrival: EMS: [facility] 08:57 Acuity: OTTO 2 Triage Assessment: 08:50 General: Appears in no apparent distress. Behavior is calm, cooperative, appropriate ah for age, Reports dizziness upon awakening. Pain: Denies pain. Neuro: Level of Consciousness is awake, alert, obeys commands, Oriented to person, place, time, situation, Hand Screen Printer are equal bilaterally Moves all extremities. Full function Speech is normal, Facial symmetry appears normal, Pupils are PERRLA. Cardiovascular: No deficits noted. Respiratory: Airway is patent Respiratory effort is even, unlabored, Respiratory pattern is regular, symmetrical, Denies shortness of breath. GI: No signs and/or symptoms were reported involving the gastrointestinal system. : No signs and/or symptoms were reported regarding the genitourinary system. Derm: Skin is intact, Skin is dry, Skin is pink, warm \T\ dry. Historical: - Allergies: 10:19 No Known Allergies; sv - Home Meds: 11:36 lisinopril Oral once daily [Active]; metformin Oral 2 times per day [Active]; rosuvastatin oral oral once daily [Active]; Metoprolol Tartrate Oral 2 times per day [Active]; Farxiga oral oral [Active]; - PMHx: 10:19 CAD; Diabetes - NIDDM; High Cholesterol; Hypertension; sv - Immunization history:: Flu vaccine is not up to date. It has been more than one year since last vaccine. - Coronavirus screen:: The patient has NOT traveled to [place], [place], or [place] in the past 14 days. The patient has NOT had contact with known/suspected case of Coronavirus?. - Family history:: not pertinent. - Social history:: Patient/guardian denies using tobacco products, Smoking status: Patient denies any tobacco usage or history of. - Ebola Screening: : No symptoms or risks identified at this time. Screenin:41 Abuse screen: Denies threats or abuse. Nutritional screening: No deficits noted. Tuberculosis screening: No symptoms or risk factors identified. Fall Risk Fall in past 12 months (25 points). No secondary diagnosis (0 pts). IV access (20 points). Ambulatory Aid- None/Bed Rest/Nurse Assist (0 pts). Gait- Normal/Bed Rest/Wheelchair (0 pts) Mental Status- Oriented to own ability (0 pts). Total De Souza Fall Scale indicates High Risk Score (45 or more points). Assessment: 10:47 General: Appears comfortable, Behavior is calm, cooperative, appropriate for age. Pain: Denies pain. Neuro: Level of Consciousness is awake, alert, obeys commands, Oriented to person, place, time, situation, Hand Screen Printer are equal bilaterally Moves all extremities. Full function Gait is steady, Speech is normal, Facial symmetry appears normal, Reports dizziness, since 0600 when awakening. worsens when she sits up. Cardiovascular: Heart tones S1 S2 Capillary refill Pulses are palpable in right radial artery, right dorsalis pedis artery, left radial artery and left dorsalis pedis artery. Respiratory: Airway is patent Respiratory effort is even, unlabored, Respiratory pattern is regular, symmetrical, Breath sounds are clear bilaterally. Denies shortness of breath. GI: Bowel sounds present X 4 quads. Abd is soft and non tender. : Reports urinary frequency, since a few days Denies burning with urination. EENT: No signs and/or symptoms were reported regarding the EENT system. Derm: Skin is intact, Skin is dry, Skin is pink, warm \T\ dry. Musculoskeletal:. 12:27 Reassessment: Patient appears in no apparent distress at this time. Patient and/or ah family updated on plan of care and expected duration. Pain level reassessed. Patient is alert, oriented x 3, equal unlabored respirations, skin warm/dry/pink. Patient denies pain at this time. Patient states feeling better. Patient states symptoms have improved. Vital Signs: 09:00 BP 194 / 65 LA Supine (auto/reg); Pulse 88; Resp 18; Temp 97.4(T); Pulse Ox 99% on R/A; ms Weight 47.63 kg; Height 4 ft. 3 in. (129.54 cm); Pain 0/10; 09:01 BP 191 / 64 LA Sitting (auto/reg); Pulse 80; Pulse Ox 99% ; ms 09:02 BP 168 / 70 LA Standing (auto/reg); Pulse 81; Pulse Ox 98% ; ms 10:00 BP 110 / 64; Pulse 74; Resp 16; Pulse Ox 100% ; sv 10:00 BP 110 / 64; Pulse 74; Temp 97.8; Pulse Ox 100% ; Pain 0/10; ah 10:37 BP 141 / 58; Pulse 71; Resp 18; Pulse Ox 99% ; sv 11:55 BP 126 / 83; Pulse 79; Resp 20; Pulse Ox 100% ; sv 09:00 Body Mass Index 28.38 (47.63 kg, 129.54 cm) ms 09:01 Pt was dizzy from laying down to sitting up ms ED Course: 08:56 Patient arrived in ED. 08:58 Juventino Walden MD is Attending Physician. jacqueline 09:00 Arm band placed on. sv 09:00 Patient has correct armband on for positive identification. Placed in gown. Bed in low sv position. Call light in reach. classroom monitor on. Pulse ox on. NIBP on. Door closed. Head of bed elevated. 09:05 Triage completed. 09:21 X-ray(s) taken. 09:22 Inserted saline lock: 22 gauge in right antecubital area, using aseptic technique. Flushed. 09:26 XRAY Chest (1 view) In Process Unspecified. EDMS 09:28 EKG done, by ED staff, reviewed by Juventino Walden MD. ms 09:[address] via wheelchair. ah 09:49 CT completed. Patient tolerated procedure well. Patient moved back from CT. bq 09:50 Urine collected: clean catch specimen, cloudy, Amount Voided: 100mL. ms 09:51 CT Head Brain wo Cont In Process Unspecified. EDMS 09:[address] Patient moved back from [address]. ah 10:38 Ultrasound completed. Patient tolerated well. sg3 10:39 US Carotid Artery Bilateral In Process Unspecified. EDMS 11:36 Lula Hopper, RN is Primary Nurse. sv 11:55 Elvis Dacosta MD is Referral Physician. jacqueline 12:31 No provider procedures requiring assistance completed. IV discontinued, bleeding ah controlled, No redness/swelling at site. Pressure dressing applied. Administered Medications: Discontinued: NS 0.9% 1000 ml IV at 125 ml/hr continuous 09:37 Drug: NS 0.9% 1000 ml Route: IV; Rate: 125 ml/hr; Site: right antecubital; ah 12:27 Follow up: IV Status: Order to discontinue infusion ah 10:47 Drug: Rocephin 1 grams Route: IV; Rate: per protocol; Site: right antecubital; ah 10:49 Follow up: Response: No adverse reaction; IV Status: Completed infusion; IV Intake: 10mlah 11:25 Drug: Aspirin 81 mg Route: PO; ah 12:33 Follow up: Response: No adverse reaction ah 11:25 Drug: Meclizine 25 mg Route: PO; ah 12:33 Follow up: Response: No adverse reaction ah 11:25 Drug: Cipro 500 mg Route: PO; ah 12:32 Follow up: Response: No adverse reaction ah Intake: 10:49 IV: 10ml; Total: 10ml. ah Outcome: 11:55 Discharge ordered by . jacqueline 12:27 Discharged to home via wheelchair, with family. ah 12:27 Condition: improved 12:27 Discharge instructions given to patient, family, Instructed on discharge instructions, follow up and referral plans. medication usage, educated on UTI and dizziness Demonstrated understanding of instructions, medications, Prescriptions given X 2. 12:38 Patient left the ED. sv Addendum: 08/25/2019 09:32 Addendum: Culture Results: Positive urine culture. No further action required. Bacteria s s sensitive to prescribed antibiotic. Signatures: Dispatcher [employer] Susan Moore, Juventino Waller RN, MD MD cha Quilty, Betty bq Villarreal, Maria ms Smirch, Shelby, ALEC RN Tiffanie Naidu 3 Alisha Davenport mw3 Lula Hopper RN RN Corrections: (The following items were deleted from the chart) 08/23 09:28 CT completed. Patient tolerated procedure well mw3 mw3 09:28 Patient moved back from [address]. mw3 mw3
--- NOTE | 2019-08-23 11:55 | EDPHYS ---
Physician Documentation [facility] Name: Sherri Parekh Age: 74 yrs Sex: Female : 1945 Arrival Date: 08/23/2019 Time: 08:56 Bed 19 Private MD: ED Physician Juventino Walden HPI: 08/23 09:15 This 74 yrs old Female presents to ER via EMS with complaints of Dizziness. [email or web address] 09:15 The patient presents with dizziness. Onset: The symptoms/episode began/occurred just jacqueline prior to arrival, this morning. Context: occurred while the patient was getting up from bed. Modifying factors: The symptoms are alleviated by lying down, the symptoms are aggravated by standing up. Associated signs and symptoms: The patient has no apparent associated signs or symptoms. Severity of symptoms: At their worst the symptoms were mild moderate in the emergency department the symptoms have improved moderately. Patient's baseline: Neuro: alert and fully oriented. The patient has experienced similar episodes in the past, a few times. Historical: - Allergies: 10:19 No Known Allergies; sv - Home Meds: 11:36 lisinopril Oral once daily [Active]; metformin Oral 2 times per day [Active]; ah rosuvastatin oral oral once daily [Active]; Metoprolol Tartrate Oral 2 times per day [Active]; Farxiga oral oral [Active]; - PMHx: 10:19 CAD; Diabetes - NIDDM; High Cholesterol; Hypertension; sv - Immunization history:: Flu vaccine is not up to date. It has been more than one year since last vaccine. - Coronavirus screen:: The patient has NOT traveled to [place], [place], or [place] in the past 14 days. The patient has NOT had contact with known/suspected case of Coronavirus?. - Family history:: not pertinent. - Social history:: Patient/guardian denies using tobacco products, Smoking status: Patient denies any tobacco usage or history of. - Ebola Screening: : No symptoms or risks identified at this time. ROS: 09:15 Constitutional: Negative for fever, chills, and weight loss, Eyes: Negative for injury, jacqueline pain, redness, and discharge, ENT: Negative for injury, pain, and discharge, Neck: Negative for injury, pain, and swelling, Cardiovascular: Negative for chest pain, palpitations, and edema, Respiratory: Negative for shortness of breath, cough, wheezing, and pleuritic chest pain, Abdomen/GI: Negative for abdominal pain, nausea, vomiting, diarrhea, and constipation, Back: Negative for injury and pain, : Negative for injury, bleeding, discharge, and swelling, MS/Extremity: Negative for injury and deformity, Skin: Negative for injury, rash, and discoloration, Neuro: Negative for headache, weakness, numbness, tingling, and seizure, Allergy/Immunology: Negative for hives, rash, and allergies, Endocrine: Negative for neck swelling, polydipsia, polyuria, polyphagia, and marked weight changes, Hematologic/Lymphatic: Negative for swollen nodes, abnormal bleeding, and unusual bruising. Exam: 09:15 Constitutional: This is a well developed, well nourished patient who is awake, alert, jacqueline and in no acute distress. Head/Face: Normocephalic, atraumatic. Eyes: Pupils equal round and reactive to light, extra-ocular motions intact. Lids and lashes normal. Conjunctiva and sclera are non-icteric and not injected. Cornea within normal limits. Periorbital areas with no swelling, redness, or edema. ENT: Nares patent. No nasal discharge, no septal abnormalities noted. Tympanic membranes are normal and external auditory canals are clear. Oropharynx with no redness, swelling, or masses, exudates, or evidence of obstruction, uvula midline. Mucous membranes moist. Neck: Trachea midline, no thyromegaly or masses palpated, and no cervical lymphadenopathy. Supple, full range of motion without nuchal rigidity, or vertebral point tenderness. No Meningismus. Chest/axilla: Normal chest wall appearance and motion. Nontender with no deformity. No lesions are appreciated. Cardiovascular: Regular rate and rhythm with a normal S1 and S2. No gallops, murmurs, or rubs. Normal PMI, no JVD. No pulse deficits. Respiratory: Lungs have equal breath sounds bilaterally, clear to auscultation and percussion. No rales, rhonchi or wheezes noted. No increased work of breathing, no retractions or nasal flaring. Abdomen/GI: Soft, non-tender, with normal bowel sounds. No distension or tympany. No guarding or rebound. No evidence of tenderness throughout. Back: No spinal tenderness. No costovertebral tenderness. Full range of motion. Female : Normal external genitalia. Skin: Warm, dry with normal turgor. Normal color with no rashes, no lesions, and no evidence of cellulitis. MS/ Extremity: Pulses equal, no cyanosis. Neurovascular intact. Full, normal range of motion. Neuro: Awake and alert, GCS 15, oriented to person, place, time, and situation. Cranial nerves II-XII grossly intact. Motor strength 5/5 in all extremities. Sensory grossly intact. Cerebellar exam normal. Normal gait. Psych: Awake, alert, with orientation to person, place and time. Behavior, mood, and affect are within normal limits. Vital Signs: 09:00 BP 194 / 65 LA Supine (auto/reg); Pulse 88; Resp 18; Temp 97.4(T); Pulse Ox 99% on R/A; ms Weight 47.63 kg; Height 4 ft. 3 in. (129.54 cm); Pain 0/10; 09:01 BP 191 / 64 LA Sitting (auto/reg); Pulse 80; Pulse Ox 99% ; ms 09:02 BP 168 / 70 LA Standing (auto/reg); Pulse 81; Pulse Ox 98% ; ms 10:00 BP 110 / 64; Pulse 74; Resp 16; Pulse Ox 100% ; sv 10:00 BP 110 / 64; Pulse 74; Temp 97.8; Pulse Ox 100% ; Pain 0/10; ah 10:37 BP 141 / 58; Pulse 71; Resp 18; Pulse Ox 99% ; sv 11:55 BP 126 / 83; Pulse 79; Resp 20; Pulse Ox 100% ; sv 09:00 Body Mass Index 28.38 (47.63 kg, 129.54 cm) ms 09:01 Pt was dizzy from laying down to sitting up ms MDM: 08:58 Patient medically screened. [facility] 09:17 Data reviewed: vital signs, nurses notes, lab test result(s), EKG, radiologic studies, [facility] CT scan, doppler, plain films. 08/23 09:14 Order name: Basic Metabolic Panel; Complete Time: 10:46 [facility] 08/23 09:14 Order name: CBC with Diff; Complete Time: 09:36 [facility] 08/23 09:14 Order name: LFT's; Complete Time: 10:46 [facility] 08/23 09:14 Order name: Magnesium; Complete Time: 10:46 [facility] 08/23 09:14 Order name: NT PRO-BNP; Complete Time: 10:46 [facility] 08/23 09:14 Order name: PT-INR; Complete Time: 09:36 [facility] 08/23 09:14 Order name: Troponin (emerg Dept Use Only); Complete Time: 10:46 [facility] 08/23 09:14 Order name: XRAY Chest (1 view) [facility] 08/23 09:15 Order name: CT Head Brain wo Cont; Complete Time: 10:46 [facility] 08/23 09:15 Order name: US Carotid Artery Bilateral [facility] 08/23 09:38 Order name: Urine Culture 08/23 09:40 Order name: Urine Dipstick--Ancillary (enter results); Complete Time: 10:46 08/23 09:14 Order name: EKG; Complete Time: 09:20 [facility] 08/23 09:14 Order name: Cardiac monitoring; Complete Time: 09:24 [facility] 08/23 09:14 Order name: EKG - Nurse/Tech; Complete Time: 09:23 [facility] 08/23 09:14 Order name: IV Saline Lock; Complete Time: 09:23 [facility] 08/23 09:14 Order name: Labs collected and sent; Complete Time: 09:23 [facility] 08/23 09:14 Order name: O2 Per Protocol; Complete Time: 09:28 [facility] 08/23 09:14 Order name: O2 Sat Monitoring; Complete Time: 09:24 [facility] 08/23 09:15 Order name: Urine Dipstick-Ancillary (obtain specimen); Complete Time: 09:49 [facility] Administered Medications: Discontinued: NS 0.9% 1000 ml IV at 125 ml/hr continuous 09:37 Drug: NS 0.9% 1000 ml Route: IV; Rate: 125 ml/hr; Site: right antecubital; 12:27 Follow up: IV Status: Order to discontinue infusion ah 10:47 Drug: Rocephin 1 grams Route: IV; Rate: per protocol; Site: right antecubital; ah 10:49 Follow up: Response: No adverse reaction; IV Status: Completed infusion; IV Intake: 10mlah 11:25 Drug: Aspirin 81 mg Route: PO; 12:33 Follow up: Response: No adverse reaction 11:25 Drug: Meclizine 25 mg Route: PO; ah 12:33 Follow up: Response: No adverse reaction 11:25 Drug: Cipro 500 mg Route: PO; 12:32 Follow up: Response: No adverse reaction Disposition: 08/23/19 11:55 Discharged to Home. Impression: Dizziness and giddiness, Essential (primary) hypertension, Urinary tract infection, site not specified. - Condition is Stable. - Discharge Instructions: Dizziness, Dysuria, Hypertension, Hypertension, [id number], How to Take Your Blood Pressure, [id number], Aspirin and Your Heart, Dizziness, Cfdw-[id number], Managing Your Hypertension. - Prescriptions for Meclizine 25 mg Oral Tablet - take 1 tablet by ORAL route every 8 hours As needed; 30 tablet. Cipro 250 mg Oral Tablet - take 1 tablet by ORAL route every 12 hours; 14 tablet. - Medication Reconciliation Form, Thank You Letter, Antibiotic Education, Prescription Opioid Use form. - Follow up: Private Physician; When: 2 - 3 days; Reason: Recheck today's complaints, Continuance of care, Re-evaluation by your physician. Follow up: Elvis Dacosta; When: 2 - 3 days; Reason: Recheck today's complaints, Re-evaluation by your physician. - Problem is new. - Symptoms have improved. Signatures: Dispatcher [employer] EDSusan Cruz RN RN sv Anderson, Corey, MD MD cha Harris, Amy, RN RN Corrections: (The following items were deleted from the chart) 12:38 11:55 08/23/2019 11:55 Discharged to Home. Impression: Dizziness and giddiness; sv Essential (primary) hypertension; Urinary tract infection, site not specified. Condition is Stable. Discharge Instructions: Dizziness, Hypertension, Hypertension, [id number], How to Take Your Blood Pressure, Rhqp-ok-[id number], Aspirin and Your Heart, Dizziness, Kcrr-vi-[id number], Managing Your Hypertension, Dysuria. Prescriptions for Meclizine 25 mg Oral Tablet - take 1 tablet by ORAL route every 8 hours As needed; 30 tablet, Cipro 250 mg Oral Tablet - take 1 tablet by ORAL route every 12 hours; 14 tablet. and Forms are Medication Reconciliation Form, Thank You Letter, Antibiotic Education, Prescription Opioid Use. Follow up: Private Physician; When: 2 - 3 days; Reason: Recheck today's complaints, Continuance of care, Re-evaluation by your physician. Follow up: Elvis Dacosta; When: 2 - 3 days; Reason: Recheck today's complaints, Re-evaluation by your physician. Problem is new. Symptoms have improved. jacqueline
--- NOTE | 2019-08-23 12:02 | RAD REPORT ---
EXAM DESCRIPTION: RAD - Chest Single View - 08/23/2019 9:26 am CLINICAL HISTORY: dizzy Chest pain. COMPARISON: Chest Single View dated 06/24/2017; Chest Single View dated 04/27/2016; CHEST SINGLE VIEW dated 08/06/2011; CHEST SINGLE VIEW dated 05/30/2009 FINDINGS: Portable technique limits examination quality. The lungs are grossly clear. The heart is normal in size. 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 IMPRESSION: No acute intrathoracic process suspected.
--- NOTE | 2019-08-23 12:06 | RAD REPORT ---
EXAM DESCRIPTION: - CP - 08/23/2019 10:38 am CLINICAL HISTORY: DIZZINESS Headache, drowsiness COMPARISON: Carotid Artery Bilateral dated 10/02/2016 TECHNIQUE: Real-time sonographic evaluation of both carotid systems was performed. Doppler interroga tion was performed with waveform tracing bilaterally. FINDINGS: Normal high resistance waveforms are noted in both external carotid arteries. The common c arotid arteries and internal carotid arteries show normal low resistance waveforms. Moderate hard plaquing is seen both carotid bulbs and proximal internal carotid arteries. Peak systol ic and end diastolic velocity values and the ICA/CCA ratios are in the non-hemodynamically significan t range. Antegrade flow seen in both vertebral arteries. IMPRESSION: Moderate hard plaquing is seen in both carotid bulbs and proximal internal carotid arter ies. No evidence of a hemodynamically significant stenosis.
[2019-08-23 12:53] VITALS: TEMP 97.8
[2019-08-23 12:56] VITALS: BP 126/83; O2SAT 100
--- NOTE | 2019-08-25 05:31 | EKG ---
Test Date: 2019-08-23 Test Time: 09:20:50 Supervisor [employer]: LEIF MEASUREMENT RESULTS: Intervals: Rate: 74 NE: 124 QRSD: 72 QT: 384 QTc: 426 [place]: P: 55 NE: 124 QRS: 59 T: 60 INTERPRETIVE STATEMENTS: Normal sinus rhythm Normal ECG Compared to ECG 06/24/2017 08:58:43 No significant changes Electronically Signed On 08-25-19 05:30:53 PROFESSOR OF EARLY CHILDHOOD EDUCATION by Franko Hopper
== END 2019-08-23 12:38 | disposition home or self-care (01) ==
LOC: ER 08:43
DX: N39.0 Urinary tract infection, site not specified (principal); I10 Essential (primary) hypertension; E78.00 Pure hypercholesterolemia, unspecified; E11.9 Type 2 diabetes mellitus without complications; I25.10 Atherosclerotic heart disease of native coronary artery without angina pectoris
CPT/HCPCS: 96361; 93005; 87088; 85025; 87086; 80048; 36415; 83735; 85610; 80076; 87077; 87186; 81003; 84484; 83880; 70450; 71045; 93880; 96374; 99285; J0696; J7030; J8597

== ENCOUNTER 2021-04-19 10:12 | Emergency (ER) | payer OTHER ==
[2021-04-19] MEDS ORDERED: HYDROCODONE/APAP 5/325 MG TAB ONE (11:06)
--- NOTE | 2021-04-19 11:15 | RAD REPORT ---
EXAM DESCRIPTION: CT - [id number] - 04/19/2021 11:00 am CLINICAL HISTORY: PAINfall, head and neck trauma, headache and neck pain COMPARISON: Head C Spine Mpr Wo Con dated 09/24/2016 TECHNIQUE: Axial 5 mm thick images of the head were obtained. Axial 2 mm thick images of the cervic al spine were obtained with sagittal and coronal reconstruction images generated and reviewed. All CT scans are performed using dose optimization technique as appropriate and may include automated exposure control or mA/KV adjustment according to patient size. FINDINGS: No intracranial hemorrhage, mass, edema or acute intracranial finding. No suspicion for ac eyak infarction. Atrophy and chronic ischemic changes match comparison study. Ventricles are in propor tion. Mastoid air cells and paranasal sinuses are clear. No globe or orbit abnormality seen. Cervical bodies are normal in height. There is straightening of the usual cervical lordosis and a shawna y slight retrolisthesis of C5 relative to C4 and C6. C5-6 and C6-7 disc space narrowing present with mild bony foraminal encroachment at these levels. No fracture or acute bony abnormality. Central can al detail is inherently limited. No paraspinal mass or hematoma. IMPRESSION: Negative CT head examination for acute or significant finding. Negative CT cervical spine examination for acute or significant finding.
--- NOTE | 2021-04-19 11:16 | RAD REPORT ---
EXAM DESCRIPTION: CT - Facial Bones W/ Mpr - 04/19/2021 11:00 am CLINICAL HISTORY: Fall, facial trauma COMPARISON: None. TECHNIQUE: Axial 2 millimeter thick images of the facial bones were obtained with sagittal and coron al reconstruction imaging. All CT scans are performed using dose optimization technique as appropriate and may include automated exposure control or mA/KV adjustment according to patient size. FINDINGS: No mandible fracture identified. Condyles are normally positioned. The mastoid air cells a re clear with no skullbase fracture. Dense arterial tree calcifications are seen. No air-fluid levels in the paranasal sinuses. No facial bone fracture is seen. Small scalp hematoma s een in the right periorbital region. IMPRESSION: No facial bone fractures identified. Right supraorbital scalp hematoma is present. Globe s and orbital contents are intact. No acute paranasal sinus finding.
--- NOTE | 2021-04-19 11:43 | EDPHYS ---
Physician Documentation [facility] Name: Sherri Parekh Age: 76 yrs Sex: Female : 1945 Arrival Date: 04/19/2021 Time: 10:15 Bed 12 Private MD: ED Physician Juventino Walden HPI: 04/19 11:48 This 76 yrs old Female presents to ER via Ambulatory with complaints of Fall kb Injury. 11:48 Details of fall: The patient fell from a height, porch. Onset: The symptoms/episode kb began/occurred just prior to arrival. Associated injuries: The patient sustained injury to the head, hematoma, pain, neck injury, pain, pain with movement, tenderness, upper lip, abrasion, swelling. Severity of symptoms: At their worst the symptoms were moderate, in the emergency department the symptoms are unchanged. The patient has not experienced similar symptoms in the past. The patient has not recently seen a physician. Pt reports she missed a step when getting off her porch and fell. Reports pain to bilateral knees, and right upper extremity but has full ROM and doesn't believe anything is broken. States she hit her face on the ground, has a headache, neck pain, hematoma to right side of forehead and swelling with abrasion to upper lip. . Historical: - Allergies: 10:35 No Known Allergies; jl7 - Home Meds: 10:35 Farxiga Oral [Active]; Metformin Oral 2 times per day [Active]; rosuvastatin Oral once jl7 daily [Active]; Metoprolol Tartrate Oral 2 times per day [Active]; lisinopril Oral once daily [Active]; - PMHx: 10:35 CAD; Diabetes - NIDDM; High Cholesterol; Hypertension; jl7 - Immunization history:: Adult Immunizations up to date, Client reports receiving the 2nd dose of the Covid vaccine. - Social history:: Smoking status: Patient denies any tobacco usage or history of. ROS: 11:52 Constitutional: Negative for fever, chills, and weight loss. kb 11:52 Skin: Positive for hematoma, of the right side of forehead. 11:53 Neck: Positive for pain with movement, pain at rest, tenderness. kb 11:53 MS/extremity: Positive for pain, of the right arm, right leg and left leg. 11:53 Skin: Positive for abrasion(s), swelling, of the upper lip. 11:53 Neuro: Positive for headache, Negative for loss of consciousness. 11:53 All other systems are negative. Exam: 11:54 Constitutional: This is a well developed, well nourished patient who is awake, alert, kb and in no acute distress. Head/Face: Normocephalic, atraumatic. Cardiovascular: Regular rate and rhythm with a normal S1 and S2. No gallops, murmurs, or rubs. No pulse deficits. Respiratory: Respirations even and unlabored. No increased work of breathing, no retractions or nasal flaring. Abdomen/GI: Soft, non-tender. No distention MS/ Extremity: Pulses equal, no cyanosis. Neurovascular intact. Full, normal range of motion. Neuro: Awake and alert, GCS 15, oriented to person, place, time, and situation. Moves all extremities. Normal gait. Psych: Awake, alert, with orientation to person, place and time. Behavior, mood, and affect are within normal limits. 11:54 ENT: Mouth: Lips: swelling to upper lip and abrasion approx 2cm to inner upper lip. 11:54 Neck: External neck: tenderness, that is moderate, of the lower cervical area and right trapezius. Vital Signs: 10:32 BP 179 / 57; Pulse 72; Resp 17; Temp 98.1; Pulse Ox 98% on R/A; jl7 Becky Coma Score: 10:48 Eye Response: spontaneous(4). Verbal Response: oriented(5). Motor Response: obeys ap3 commands(6). Total: 15. Trauma Score (Adult): 10:48 Eye Response: spontaneous(1); Verbal Response: oriented(1); Motor Response: obeys ap3 commands(2); Systolic BP: > 89 mm Hg(4); Respiratory Rate: 10 to 29 per min(4); Becky Score: 15; Trauma Score: 12 MDM: 10:37 Patient medically screened. kb 11:48 Data reviewed: vital signs, nurses notes. Data interpreted: Pulse oximetry: on room air kb is 98 %. Interpretation: normal. Counseling: I had a detailed discussion with the patient and/or guardian regarding: the historical points, exam findings, and any diagnostic results supporting the discharge/admit diagnosis, radiology results, the need for outpatient follow up, a family practitioner, to return to the emergency department if symptoms worsen or persist or if there are any questions or concerns that arise at home. 04/19 10:37 Order name: CT Head C Spine; Complete Time: 11:37 kb 04/19 10:37 Order name: CT Facial Bones W/O Con; Complete Time: 11:37 kb Administered Medications: 10:46 Drug: HYDROcodone-acetaminophen 5 mg-325 mg 1 tabs Route: PO; ap3 11:48 Follow up: Response: No adverse reaction; Pain is decreased ap3 Disposition Summary: 04/19/21 11:42 Discharge Ordered Location: Home kb Condition: Stable kb Diagnosis - fall from porch kb - Abrasion of lip and oral cavity kb - Cervicalgia kb - Headache kb Followup: kb - With: Private Physician - When: 2 - 3 days - Reason: Recheck today's complaints, Continuance of care, Re-evaluation by your physician Followup: kb - With: Emergency Department - When: As needed - Reason: Worsening of condition Discharge Instructions: - Discharge Summary Sheet kb - Musculoskeletal Pain kb - Head Injury, Adult, [id number] kb Forms: - Medication Reconciliation Form kb - Thank You Letter kb - Antibiotic Education kb - Prescription Opioid Use kb Prescriptions: - Cyclobenzaprine 10 mg Oral Tablet - take 1 tablet by ORAL route every 8 hours As needed; 21 tablet; Refills: 0, kb Product Selection Permitted Addendum: 04/21/2021 10:55 Co-signature as Attending Physician, Juventino Walden MD I agree with the assessment and c capps plan of care. Signatures: Dispatcher [employer] Mariaelena Strong, HONG-Mac NGUYENP-Juventino Patel MD MD cha Leal, Jahala, RN RN jl7 Kathy Mata RN RN ap3
--- NOTE | 2021-04-19 11:43 | ER ---
Nurse's Notes [facility] Name: Sherri Parekh Age: 76 yrs Sex: Female : 1945 Arrival Date: 04/19/2021 Time: 10:15 Bed 12 Private MD: Diagnosis: fall from porch;Abrasion of lip and oral cavity;Cervicalgia;Headache Presentation: 04/19 10:32 Chief complaint: Patient states: Fell an hour ago, reports hitting face, right arm, jl7 bilateral knees. Coronavirus screen: At this time, the client does not indicate any symptoms associated with coronavirus-19. Ebola Screen: No symptoms or risks identified at this time. Initial Sepsis Screen: Does the patient meet any 2 criteria? No. Patient's initial sepsis screen is negative. Does the patient have a suspected source of infection? No. Patient's initial sepsis screen is negative. Risk Assessment: Do you want to hurt yourself or someone else? Patient reports no desire to harm self or others. Onset of symptoms was April 19, 2021. 10:32 Method Of Arrival: Ambulatory jl7 10:32 Acuity: OTTO 3 jl7 10:48 Care prior to arrival: None. Mechanism of Injury: Fall from standing position. an ap3 unknown distance. Trauma event details: Injury occurred in the [facility]. Triage Assessment: 10:35 General: Appears in no apparent distress. uncomfortable, Behavior is calm, cooperative, jl7 appropriate for age. Pain: Complains of pain in right knee, left knee, face and right arm. Historical: - Allergies: 10:35 No Known Allergies; jl7 - Home Meds: 10:35 Farxiga Oral [Active]; Metformin Oral 2 times per day [Active]; rosuvastatin Oral once jl7 daily [Active]; Metoprolol Tartrate Oral 2 times per day [Active]; lisinopril Oral once daily [Active]; - PMHx: 10:35 CAD; Diabetes - NIDDM; High Cholesterol; Hypertension; jl7 - Immunization history:: Adult Immunizations up to date, Client reports receiving the 2nd dose of the Covid vaccine. - Social history:: Smoking status: Patient denies any tobacco usage or history of. Screenin:47 Abuse screen: Denies threats or abuse. Nutritional screening: No deficits noted. ap3 Tuberculosis screening: No symptoms or risk factors identified. Fall Risk Fall in past 12 months (25 points). No secondary diagnosis (0 pts). No IV (0 pts). Ambulatory Aid- None/Bed Rest/Nurse Assist (0 pts). Gait- Normal/Bed Rest/Wheelchair (0 pts) Mental Status- Oriented to own ability (0 pts). Total De Souza Fall Scale indicates Low Risk Score (25-44 pts). Fall prevention measures have been instituted. Frequent Obs/Assesments occuring Family Present and informed to notify staff if they need to leave bedside As available Patient and Family Educated on Fall Prevention Program and strategies. Primary Survey: 10:47 NO uncontrolled hemorrhage observed. Breathing/Chest: Respiratory pattern: regular, ap3 Respiratory effort: spontaneous. Circulation: Skin color: pink. Disability Alert. Exposure/Environment: There is no evidence of uncontrolled external bleeding. Reassessment Breathing/Chest Respiratory pattern Regular Respiratory effort Spontaneous Circulation Color [place] Disability Alert. Assessment: 10:46 General: Appears in no apparent distress. Behavior is calm, cooperative, appropriate ap3 for age. Pain: Complains of pain in face, right hand and mouth Pain began suddenly. Neuro: Level of Consciousness is awake, alert, obeys commands, Oriented to person, place, time, situation, Appropriate for age Moves all extremities. Speech is normal. Respiratory: Airway is patent Respiratory effort is even, unlabored, Respiratory pattern is regular, symmetrical. GI: No signs and/or symptoms were reported involving the gastrointestinal system. : No signs and/or symptoms were reported regarding the genitourinary system. Derm: Wound noted right eye, right hand and mouth. Vital Signs: 10:32 BP 179 / 57; Pulse 72; Resp 17; Temp 98.1; Pulse Ox 98% on R/A; jl7 Becky Coma Score: 10:48 Eye Response: spontaneous(4). Verbal Response: oriented(5). Motor Response: obeys ap3 commands(6). Total: 15. Trauma Score (Adult): 10:48 Eye Response: spontaneous(1); Verbal Response: oriented(1); Motor Response: obeys ap3 commands(2); Systolic BP: > 89 mm Hg(4); Respiratory Rate: 10 to 29 per min(4); [place] Score: 15; Trauma Score: 12 ED Course: 10:15 Patient arrived in ED. as 10:35 Triage completed. jl7 10:35 Arm band placed on right wrist. jl7 10:37 Mariaelena Cohn FNP-C is [facility]. kb 10:37 Juventino Walden MD is Attending Physician. kb 10:45 Kathy Mata, RN is Primary Nurse. ap3 10:48 Patient has correct armband on for positive identification. Call light in reach. Adult ap3 w/ patient. Pulse ox on. NIBP on. Door closed. Noise minimized. 10:48 Patient maintains SpO2 saturation greater than 95% on room air. ap3 10:49 Thermoregulation: warm blanket given to patient. ap3 11:00 CT Head C Spine In Process Unspecified. EDMS 11:00 CT Facial Bones W/O Con In Process Unspecified. EDMS 11:41 Nurse Practitioner and/or Physician [employer] Pump Operator to see patient. ap3 11:47 No provider procedures requiring assistance completed. Patient did not have IV access ap3 during this emergency room visit. Administered Medications: 10:46 Drug: HYDROcodone-acetaminophen 5 mg-325 mg 1 tabs Route: PO; ap3 11:48 Follow up: Response: No adverse reaction; Pain is decreased ap3 Outcome: 11:42 Discharge ordered by MD. kb 11:47 Discharged to home ambulatory, with family. ap3 11:47 Condition: good 11:47 Discharge instructions given to patient, family, Instructed on discharge instructions, follow up and referral plans. medication usage, Demonstrated understanding of instructions, follow-up care, medications, Prescriptions given X 1. 11:48 Patient's length of stay was not longer than 2 hours. ap3 11:48 Patient left the ED. ap3 Signatures: Dispatcher [employer] EDAK Mariaelena Cohn FNP-C FNP-Ckb Martinez, Amelia as Leal, Jahala RN RN jl7 Kathy Mata, ALEC RN ap3
[2021-04-19 12:18] VITALS: BP 179/57; TEMP 98.1; O2SAT 98
== END 2021-04-19 11:48 | disposition home or self-care (01) ==
LOC: ER 10:12
DX: S00.511A Abrasion of lip, initial encounter (principal); S00.512A Abrasion of oral cavity, initial encounter; M54.2 Cervicalgia; W17.89XA Other fall from one level to another, initial encounter; E11.9 Type 2 diabetes mellitus without complications; E78.00 Pure hypercholesterolemia, unspecified; I10 Essential (primary) hypertension
CPT/HCPCS: 70450; 70486; 72125; 76377; 99284

== ENCOUNTER 2021-04-20 12:26 | Emergency (ER) | payer OTHER ==
--- NOTE | 2021-04-20 13:29 | RAD REPORT ---
EXAM DESCRIPTION: CT - Head Brain Wo Cont - 04/20/2021 1:24 pm CLINICAL HISTORY: headache, ams Fall, trauma COMPARISON: Facial Bones W/ Mpr dated 04/19/2021; Head Brain Wo Cont dated 08/23/2019 TECHNIQUE: All CT scans are performed using dose optimization technique as appropriate and may inclu de automated exposure control or mA/KV adjustment according to patient size. FINDINGS: No intracranial hemorrhage, hydrocephalus or extra-axial fluid collection.Mild brain atrop hy is seen. Mild periventricular and deep white matter chronic microvascular ischemic changes.No area s of brain edema or evidence of midline shift. The paranasal sinuses and mastoids are clear. The calvarium is intact. IMPRESSION: No acute intracranial abnormality.
[2021-04-20] MEDS ORDERED: TRAMADOL 37.5mg/APAP 325mg PER TAB ONE (13:50)
--- NOTE | 2021-04-20 13:52 | RAD REPORT ---
EXAM DESCRIPTION: RAD - Wrist Right 3 View - 04/20/2021 1:42 pm CLINICAL HISTORY: fall Pain COMPARISON: No comparisons FINDINGS: The bones are mildly demineralized. No fracture or dislocation seen. No foreign body or o ther soft tissue abnormality. Vascular calcifications noted.
--- NOTE | 2021-04-20 13:54 | RAD REPORT ---
EXAM DESCRIPTION: RAD - Elbow Right 3 View - 04/20/2021 1:41 pm CLINICAL HISTORY: fall Trauma, fall, pain COMPARISON: Wrist Right 3 View dated 04/20/2021; Shoulder Right 2 View dated 04/20/2021 FINDINGS: Small osteophytes are present with mild elbow joint degenerative arthritic changes. No acu te fracture or dislocation seen.
--- NOTE | 2021-04-20 13:56 | RAD REPORT ---
EXAM DESCRIPTION: RAD - Shoulder Right 2 View - 04/20/2021 1:41 pm CLINICAL HISTORY: fall, shoulder pain COMPARISON: No comparisons FINDINGS: Mild AC joint and glenohumeral joint arthritic changes are present. No acute fracture or d islocation is seen.
--- NOTE | 2021-04-20 14:14 | ER ---
Nurse's Notes [facility] Name: Sherri Parekh Age: 76 yrs Sex: Female : 1945 Arrival Date: 04/20/2021 Time: 12:31 Bed 13 Private MD: Diagnosis: Strain of unspecified muscle, fascia and tendon at shoulder and upper arm level, left arm;Other specified sprain of right wrist Presentation: 04/20 12:47 Chief complaint: Patient states: Right arm and right shoulder pain and lightheaded. kg Daughter stated, " she fell yesterday and came in to the ER and they scanned her head but she didn't tell them that her arm hurt so they didn't check her arm yesterday.". Coronavirus screen: Vaccine status: Patient reports receiving the 2nd dose of the covid vaccine. Date December 13, 2020 [facility] Patient reports receiving the 1st dose of the Covid vaccine. Date November 20, 2020 [facility] At this time, the client does not indicate any symptoms associated with coronavirus-19. Ebola Screen: Patient negative for fever greater than or equal to 101.5 degrees Fahrenheit, and additional compatible Ebola Virus Disease symptoms Patient denies exposure to infectious person. Patient denies travel to an Ebola-affected area in the 21 days before illness onset. Initial Sepsis Screen: Does the patient meet any 2 criteria? No. Patient's initial sepsis screen is negative. Does the patient have a suspected source of infection? No. Patient's initial sepsis screen is negative. Risk Assessment: Do you want to hurt yourself or someone else? Patient reports no desire to harm self or others. Onset of symptoms was April 19, 2021. 12:47 Method Of Arrival: Ambulatory kg 12:47 Acuity: OTTO 4 kg Triage Assessment: 12:53 General: Appears in no apparent distress. Behavior is calm, cooperative, appropriate kg for age, quiet. Pain: Complains of pain in Right shoulder, Right arm, Right hand Pain currently is 8 out of 10 on a pain scale. at worst was 10 out of 10 on a pain scale. level that patient reports is acceptable is 3 out of 10 on a pain scale. Quality of pain is described as aching, Soreness. Historical: - Allergies: 12:53 No Known Allergies; kg - Home Meds: 12:53 Farxiga Oral [Active]; lisinopril Oral once daily [Active]; Metformin Oral 2 times per kg day [Active]; Metoprolol Tartrate Oral 2 times per day [Active]; rosuvastatin Oral once daily [Active]; - PMHx: 12:53 Hypertension; High Cholesterol; Diabetes - NIDDM; CAD; kg - PSHx: 12:53 Coronary artery bypass graft; Coronary Angioplasty; kg - Immunization history:: Adult Immunizations not up to date, Client reports receiving the 2nd dose of the Covid vaccine, Date received: December 13, 2020 [facility] Client reports receiving the 1st dose of the Covid vaccine, November 20, 2020 [facility]. - Social history:: Smoking status: Patient denies any tobacco usage or history of. Screenin:57 Abuse screen: Denies threats or abuse. Denies injuries from another. Nutritional kg screening: No deficits noted. Tuberculosis screening: No symptoms or risk factors identified. Fall Risk Fall in past 12 months (25 points). No secondary diagnosis (0 pts). No IV (0 pts). Ambulatory Aid- None/Bed Rest/Nurse Assist (0 pts). Gait- Weak (10 pts.). Mental Status- Oriented to own ability (0 pts). Total De Souza Fall Scale indicates Low Risk Score (25-44 pts). Fall prevention measures have been instituted. Side Rails Up X 2 Placed close to Nursing Station Frequent Obs/Assesments occuring Family Present and informed to notify staff if they need to leave bedside As available Patient and Family Educated on Fall Prevention Program and strategies. Assessment: 13:04 Pain: Alleviated by. aj2 13:04 Pain: Complains of pain in anterior aspect of right shoulder Pain radiates to right arm.aj2 Vital Signs: 12:47 BP 99 / 75; Pulse 68; Resp 20; Temp 98.2(O); Pulse Ox 99% on R/A; Weight 45.81 kg (R); kg Height 4 ft. 9 in. (144.78 cm); Pain 8/10; 13:19 BP 99 / 75; Pulse 88; Resp 18; Temp 98.2; Pulse Ox 100% ; aj2 12:47 Body Mass Index 21.86 (45.81 kg, 144.78 cm) kg ED Course: 12:31 Patient arrived in ED. mr 12:53 Triage completed. kg 12:57 Arm band placed on left wrist. kg 12:57 Patient has correct armband on for positive identification. Fall risk band placed. Bed kg in low position. Call light in reach. Side rails up X2. Adult w/ patient. 13:00 Marlon Vega PA is PHCP. [facility] 13:00 Kenneth Zepeda MD is Attending Physician. [facility] 13:03 Holly Bonilla is Primary Nurse. aj2 13:04 No apparent distress. Resting quietly. aj2 13:04 No provider procedures requiring assistance completed. aj2 13:24 CT Head Brain wo Cont In Process Unspecified. EDMS 13:41 Shoulder Right (2 View) XRAY In Process Unspecified. EDMS 13:41 Elbow Right 3 View XRAY In Process Unspecified. EDMS 13:41 Wrist Right 3 View XRAY In Process Unspecified. EDMS Administered Medications: 14:11 Not Given (Physician Discretion): traMADol 50 mg PO once; RASS on ADMIN: Combtv4, Very es2 Agttd3, Agttd2, Rstlss1, AlertClm0, Drwsy-1, Lt Sdtn-2, Mod Sdtn-3, Dp Sdtn-4, UnArsble-5 14:11 Drug: Ultracet 37.5 mg-325 mg 37.5 mg Route: PO; es2 Outcome: 14:14 Discharge ordered by . [facility] 14:18 Discharged to home ambulatory. aj2 14:18 Condition: stable 14:18 Discharge instructions given to patient, Instructed on discharge instructions, follow up and referral plans. Demonstrated understanding of instructions, follow-up care. 14:27 Patient left the ED. aj2 Signatures: Dispatcher [employer] EDMS Marlon Vega PA PA jmm Rivera, Mary Elba Coley RN RN kg Holly Bonilla aj2 Raquel Liriano RN RN es2
--- NOTE | 2021-04-20 14:14 | EDPHYS ---
Physician Documentation [facility] Name: Sherri Parekh Age: 76 yrs Sex: Female : 1945 Arrival Date: 04/20/2021 Time: 12:31 Bed 13 Private MD: ED Physician Kenneth Zepeda HPI: 04/20 13:09 This 76 yrs old Female presents to ER via Ambulatory with complaints of Arm jmm Pain, Shoulder Pain. 13:09 The patient or guardian complains of injury, pain. Onset: The symptoms/episode jmm began/occurred acutely, yesterday. This is a 76-year-old female with history of hypertension, hyperlipidemia, diabetes mellitus, the presents emerged part with complaints of right shoulder pain following a fall which occurred yesterday. Patient was evaluated in the ED with a negative CT imaging. Patient complains of ongoing headache and worsening right shoulder pain since.. Historical: - Allergies: 12:53 No Known Allergies; kg - Home Meds: 12:53 Farxiga Oral [Active]; lisinopril Oral once daily [Active]; Metformin Oral 2 times per kg day [Active]; Metoprolol Tartrate Oral 2 times per day [Active]; rosuvastatin Oral once daily [Active]; - PMHx: 12:53 Hypertension; High Cholesterol; Diabetes - NIDDM; CAD; kg - PSHx: 12:53 Coronary artery bypass graft; Coronary Angioplasty; kg - Immunization history:: Adult Immunizations not up to date, Client reports receiving the 2nd dose of the Covid vaccine, Date received: December 13, 2020 [place] Client reports receiving the 1st dose of the Covid vaccine, November 20, 2020 [place]. - Social history:: Smoking status: Patient denies any tobacco usage or history of. ROS: 13:09 Constitutional: Negative for fever, chills, and weight loss, Cardiovascular: Negative jmm for chest pain, palpitations, and edema, Respiratory: Negative for shortness of breath, cough, wheezing, and pleuritic chest pain. 13:09 MS/extremity: Positive for injury or acute deformity. 13:09 All other systems are negative. Exam: 13:09 Constitutional: This is a well developed, well nourished patient who is awake, alert, jmm and in no acute distress. Eyes: EOMI, no conjunctival erythema appreciated ENT: Moist Mucus Membranes Neck: Trachea midline, Supple Chest/axilla: Normal chest wall appearance and motion. Cardiovascular: Regular rate and rhythm. No edema appreciated Respiratory: Normal respirations, no respiratory distress appreciated Abdomen/GI: Non distended, soft Back: Normal ROM Skin: General appearance color normal 13:09 Neuro: Awake and alert, normal gait Psych: Behavior is normal, Mood is normal, Patient is cooperative and pleasant 13:09 Head/face: Noted is raccoon eye(s), on the right. 13:09 Musculoskeletal/extremity: ROM: intact in all extremities, Right anterior shoulder pain on palpation, full door furring installer strength, compartments are soft, full radial pulse, neurovascular intact. Right wrist diffusely tender to palpation, no snuffbox tenderness appreciated, full radial pulse, neurovascular intact.. 13:09 Skin: Appearance: Color: normal in color. Vital Signs: 12:47 BP 99 / 75; Pulse 68; Resp 20; Temp 98.2(O); Pulse Ox 99% on R/A; Weight 45.81 kg (R); kg Height 4 ft. 9 in. (144.78 cm); Pain 8/10; 13:19 BP 99 / 75; Pulse 88; Resp 18; Temp 98.2; Pulse Ox 100% ; aj2 12:47 Body Mass Index 21.86 (45.81 kg, 144.78 cm) kg MDM: 13:11 Patient medically screened. [facility] 14:13 Data reviewed: vital signs, nurses notes. Counseling: I had a detailed discussion with jaimie the patient and/or guardian regarding: the historical points, exam findings, and any diagnostic results supporting the discharge/admit diagnosis, radiology results, the need for outpatient follow up, to return to the emergency department if symptoms worsen or persist or if there are any questions or concerns that arise at home. 04/20 13:09 Order name: CT Head Brain wo Cont; Complete Time: 13:36 [facility] 04/20 13:09 Order name: Shoulder Right (2 View) XRAY; Complete Time: 13:57 [facility] 04/20 13:09 Order name: Elbow Right 3 View XRAY; Complete Time: 13:57 [facility] 04/20 13:09 Order name: Wrist Right 3 View XRAY; Complete Time: 13:57 [facility] Administered Medications: 14:11 Not Given (Physician Discretion): traMADol 50 mg PO once; RASS on ADMIN: Combtv4, Very es2 Agttd3, Agttd2, Rstlss1, AlertClm0, Drwsy-1, Lt Sdtn-2, Mod Sdtn-3, Dp Sdtn-4, UnArsble-5 14:11 Drug: Ultracet 37.5 mg-325 mg 37.5 mg Route: PO; es2 Disposition: 04/21 11:08 Co-signature as Attending Physician, Kenneth Zepeda MD I agree with the assessment and kdr plan of care. Disposition Summary: 04/20/21 14:14 Discharge Ordered Location: Home jmm Condition: Stable jmm Diagnosis - Strain of unspecified muscle, fascia and tendon at shoulder and upper arm level, jmm left arm - Other specified sprain of right wrist jmm Followup: jmm - With: Private Physician - When: 2 - 3 days - Reason: Recheck today's complaints, Continuance of care, Re-evaluation by your physician Discharge Instructions: - Discharge Summary Sheet jmm - Shoulder Sprain jmm - Wrist Sprain, Adult jmm Forms: - Medication Reconciliation Form jmm - Thank You Letter jmm - Antibiotic Education jmm - Prescription Opioid Use jmm Signatures: Dispatcher [employer] EDKenneth Kahn MD MD kdr Mickail, Joel, PA PA jmm Graham, Kristen, RN RN Raquel Silveira RN RN es2
[2021-04-20 14:32] VITALS: BP 99/75; TEMP 98.2
[2021-04-20 14:33] VITALS: O2SAT 100
== END 2021-04-20 14:27 | disposition home or self-care (01) ==
LOC: ER 12:26
DX: S46.911A Strain of unspecified muscle, fascia and tendon at shoulder and upper arm level, right arm, initial encounter (principal); S63.591A Other specified sprain of right wrist, initial encounter; I10 Essential (primary) hypertension; E11.9 Type 2 diabetes mellitus without complications; Z95.1 Presence of aortocoronary bypass graft; W19.XXXA Unspecified fall, initial encounter
CPT/HCPCS: 70450; 99283

== ENCOUNTER 2022-02-24 18:08 | Emergency (ER) | payer OTHER ==
--- OUTSIDE RECORDS SUMMARY | 2022-02-24 18:11 | XMS REPORT | Continuity of Care Document ---
:1945 Author Organization Formerly [facility] t Address [address] [place] [address] Care Team Providers Name Role Phone CYDNEY PARRA Primary Care Physician Unavailable Cydney Parra Attending Clinician Unavailable AMI BRAVO Attending Clinician Unavailable ARGELIA CALL Attending Clinician Unavailable Argelia Call MD Attending Clinician Payers Payer Name Policy Type Policy Number Effective Date Expiration Date S [facility] [id number] 2020 [facility] [place] 00:00:00 PPO Problems Condition Condition Condition Status Onset Resolution Last Treating Co mments Source Name Details Category Date Date Treatment Clinician Date Left arm Left arm Disease Active 2020-07 Unive rs pain pain 2-12 ity of 00:00: [place] [address] Medical Branch Left arm Left arm Disease Active 2020-07 Unive rs numbness numbness 2-12 ity of 00:00: [place] [address] Medical [place] Dyslipidem Dyslipidem Disease Active [address] U [place] ia 9-08 ity of 00:00: [place] 00 Medical Branch Chronic Chronic Disease Active Univers diastolic diastolic 03-30 ity of heart heart 00:00: [place] failure failure Medical Branch Family Family Disease Active Univers history of history of 03-30 [place] premature [place] CAD CAD 00 [place] Coronary Coronary Disease Active Unive rs artery artery 9 ity of disease disease 00:00: [place] involving involving [facility] coronary coronary Branch bypass bypass graft of graft [facility] heart heart without without angina angina pectoris pectoris Essential Essential Disease Active Uni vers hypertensi hypertensi 03-30 it y of on on 00:00: [place] [facility] Atypical Atypical Disease Active Unive rs chest pain chest pain 03-29 it y of 00:00: [place] 00 Medical Branch Dyspnea on Dyspnea on Disease Active U nivers exertion exertion 2-22 ity of 00:00: [place] 00 Medical Branch S/P CABG S/P CABG Disease Active 2016-07 Unive rs (coronary (coronary 2-11 ity of artery artery 00:00: [place] bypass bypass 00 Medical graft) graft) Branch Allergies, Adverse Reactions, Alerts Allergy Allergy Status Severity Reaction(s) Onset Inactive Treating Comm ents Source Name Type Date Date Clinician NO KNOWN Drug Active Univers ALLERGIE Class ity of S [facility] Social History Social Habit Start Date Stop Date Quantity Comments Source Exposure to 2021-12-17 2021-12-27 Not sure [facility]-CoV-2 00:00:00 08:48:00 [facility] (event) Branch Alcohol intake 2021-12-27 2021-12-27 Current [facility] 00:00:00 00:00:00 non-drinker of [facility] [place] [facility] alcohol Branch (finding) Tobacco use and 2017-05-01 2017-05-01 Never used Universit y of exposure 00:00:00 00:00:00 [facility] Sex Ass[birth year] Universit y of 00:00:00 00:00:00 [facility] Smoking Status Start Date Stop Date Source Never smoker [facility] Branch Medications Ordered Filled Start Stop Current Ordering Indication Dosage Frequency Signature Comments Components Source Medication Medication Date Date Medication? Clinician (SIG) Name Name ezetimibe-s Yes 1{tbl} Take 1 Tab Univers imvastatin 6-07 by mouth ity o f 05-11 09:13: at [place] (VYTORIN 14 bedtime. Medical 05/11) Branch 10-20 mg tablet metFORMIN Yes 1000mg Take 1,000 Univers (GLUCOPHAGE 6-07 mg by ity of ) 500 mg 09:13: mouth 2 [place] tablet 14 (two) Medical times Branch daily with meals. SEDRICK Yes 81mg Take 81 mg Univer s CHEWABLE 6-07 by mouth. ity of ASPIRIN 09:13: Indication [place] ORAL 14 s: takes 2 Medical per day Branch rosuvastati Yes 20mg Take 20 mg Univers n 20 mg 6-07 by mouth ity of tablet 09:13: at [place] 14 bedtime. Medical Branch Cholecalcif Yes 2000U Take 2,000 Univers jose, 6-07 Units by ity of Vitamin D3, 09:13[place] (VITAMIN 14 Medical D3) 50 mcg Branch (2,000 unit) capsule lisinopriL Yes [id number] 5mg Take 0.5 Univers 10 mg 6-07 tablets by ity of tablet 00:00: mouth [place] 00 daily. Medical Branch Crestor Crestor Yes Cydney 1 tablet C ommon 2-04 Parra at bedtime Spirit 00:00: - [facility] 00 [facility] Estrace Estrace Yes Cydney as Commo n 6-13 Parra directed Spirit 00:00: - [facility] FARXIGA 10 Yes [id number] 10mg Take 10 mg Univers mg tablet 3-21 by mouth ity of 00:00: daily. [place] Medical Branch lisinopril 2021- No [id number] 10mg Take 10 mg Univers 10 mg 2-12 06-07 by mouth ity of tablet 00:00: 00:00 daily. [place] 00 :00 Medical Branch metoprolol 2016-07 Yes 25mg Take 1 Unive rs tartrate 25 2-18 tablet by ity of mg tablet 00:00: mouth 2 [place] 00 (two) Medical times Branch daily. Aspir-81 Aspir-81 Yes Cydney 1 tablet C ommon Parra [facility] Lisinopril Lisinopril Yes Cydney 1 tablet Common Parra [facility] Metformin Metformin Yes Cydney 1 tablet Common HCl HCl Parra with meals [facility] Ferrous Ferrous Yes Cydney 1 tablet Com mon Sulfate Sulfate Parra [facility] Cydney 1 Common Parra [facility] Metoprolol Metoprolol Yes Cydney 1 tablet Common Tartrate Tartrate Parra with food S pirit [facility] Myrbetriq Myrbetriq Yes Cydney TAKE 1 C ommon Parra TABLET BY [facility] MOUTH - [facility] EVERY DAY [facility] Immunizations Ordered Filled Immunization Date Status Comments [facility] e Immunization Name Name Influenza Virus 2021-07-04 Completed Universit y of Vaccine,quad 00:00:00 [place] [facility] Free Branch 65+ SARS-COV-2 COVID-19 2020-12-13 Completed Unive rsity of PFIZER VACCINE 00:00:00 [place] [facility] SARS-COV-2 COVID-19 2020-11-20 Completed Unive rsity of PFIZER VACCINE 00:00:00 [place] [facility] FluAD FluAD 2018-05-08 Completed Common [facility] - 00:00:00 [facility] Vital Signs Vital Name Observation Time Observation Value Comments Source Systolic blood 2021-12-27 14:12:00 129 mm[Hg] Univer sity of pressure [facility] Diastolic blood 2021-12-27 14:12:00 45 mm[Hg] Unive rsity of pressure [facility] Heart rate 2021-12-27 14:12:00 54 /min [facility] Oxygen saturation in 2021-12-27 14:12:00 99 /min [facility] Arterial blood by [facility] [place] [facility] Pulse oximetry [place] Body temperature 2021-12-27 14:06:00 35.61 Marie [facility] Respiratory rate 2021-12-27 14:06:00 21 /min [facility] Body height 2021-12-27 14:06:00 144.8 cm [facility] Body weight 2021-12-27 14:06:00 44.543 kg [facility] BMI 2021-12-27 14:06:00 21.25 kg/m2 [facility] Procedures This patient has no known procedures. Encounters Start End Encounter Admission Attending Care Care Encounter Source Date/Time Date/Time Type Type Clinicians Facility Department ID 2021-08-17 Outpatient Parra, STLMLC STLC [id number] Common 14:33:36 Cydney [facility] 2021-08-17 Outpatient Parra, STLMLC STLMLC [id number] Common 12:59:39 Cydney 04788 [facility] 2021-08-17 Outpatient Parra, STLMLC STLC [id number] Common 12:59:09 Cydney 82012 [facility] 2021-08-17 Outpatient Parra, STLMLC STLC [id number] Common 12:25:40 Cydney 16387 [facility] 2021-08-17 Outpatient Parra, STLMLC STLC [id number] Common 12:11:56 Cydney 16583 [facility] 2021-08-17 Outpatient Parra, STLMLC STLC [id number] Common 11:21:41 Cydney 49935 [facility] 2021-08-17 Outpatient Parra, STLMLC STLC [id number] Common 11:16:02 Cydney 18134 [facility] 2021-08-17 Outpatient Parra, STLMLC STLC [id number] Common 11:07:32 Cydney 35432 [facility] 2021-08-17 Outpatient Parra, STLMLC STLC [id number] Common 11:07:20 Cydney 52172 [facility] 2021-08-17 Outpatient Parra, STLMLC STLC [id number] Common 11:06:39 Cydney 99411 [facility] 2022-03-06 2022-03-06 Outpatient R LAWRENCE [facility] [id number] Univers 08:30:00 08:30:00 AMI miller [facility] [place] 2022-02-28 2022-02-28 Outpatient Elis CALL [facility] [id number] Univers 00:00:00 00:00:00 ARGELIA paul kay kevin [facility] 2022-02-14 2022-02-14 ambulatory STLMLC STLMLC [id number] Common 00:00:00 00:00:00 [facility] 2022-01-26 2022-01-26 ambulatory STLMLC STLMLC [id number] Common 00:00:00 00:00:00 [facility] 2022-01-20 2022-01-20 Outpatient R ONEYDA [facility] [id number] Univers 08:00:00 08:01:00 ADARSHSANJANADMITRI paul brown [facility] 2021-12-27 2021-12-27 [facility] [id number] Univers 08:40:00 09:34:30 Visit Argelia LUCIANO [id number] Mi [id number] Christy [place] [id number] [address] 2021-12-26 2021-12-26 ambulatory STLMLC STLMLC [id number] Common 00:00:00 00:00:00 [facility] 2021-11-09 2021-11-09 ambulatory STLMLC STLMLC [id number] Common 00:00:00 00:00:00 [facility] 2021-08-01 2021-08-01 ambulatory STLMLC STLMLC [id number] Common 00:00:00 00:00:00 [facility] 2021-03-24 2021-03-24 Outpatient STLMLC STLMLC [id number] Common 00:00:00 00:00:00 [facility] 2020-12-27 2020-12-27 Outpatient STLMLC STLMLC [id number] Common 00:00:00 00:00:00 [facility] 2020-12-16 2020-12-16 Outpatient STLMLC STLMLC [id number] Common 00:00:00 00:00:00 [facility] 2020-12-09 2020-12-09 Outpatient STLMLC STLMLC [id number] Common 00:00:00 00:00:00 [facility] 2020-12-03 2020-12-03 Outpatient STLMLC STLMLC [id number] Common 00:00:00 00:00:00 [facility] 2020-11-24 2020-11-24 Outpatient STLMLC STLMLC [id number] Common 00:00:00 00:00:00 [facility] 2020-11-24 2020-11-24 Outpatient STLMLC STLMLC [id number] Common 00:00:00 00:00:00 [facility] 2020-06-29 2020-06-29 Outpatient STLMLC STLMLC [id number] Common 00:00:00 00:00:00 [facility] 2020-03-03 2020-03-03 [facility] [id number] Common 10:45:00 10:45:00 [address] [place] [address] [facility] 2019-12-03 2019-12-03 [facility] [id number] Common 11:15:00 11:15:00 [place] [address] [facility] 2019-09-04 2019-09-04 [facility] [id number] Common 09:00:00 09:00:00 [place] [address] [facility] 2019-05-29 2019-05-29 [facility] [id number] Common 14:38:00 14:38:00 [place] [address] [facility] 2019-05-29 2019-05-29 [facility] [id number] Common 11:30:00 11:30:00 [place] [address] [facility] 2019-02-19 2019-02-19 [facility] [id number] Common 08:15:00 08:15:00 [place] [address] [facility] 2019-02-03 2019-02-03 [facility] [id number] Common 16:15:00 16:15:00 [place] [address] [facility] 2019-01-09 2019-01-09 [facility] [id number] Common 08:15:00 08:15:00 [place] [address] [facility] 2018-11-05 2018-11-05 [facility] [id number] Common 10:00:00 10:00:00 [place] [address] [facility] 2018-08-26 2018-08-26 [facility] [id number] Common 08:43:00 08:43:00 [place] [address] [facility] 2018-08-08 2018-08-08 [facility] [id number] Common 10:15:00 10:15:00 [place] [address] [facility] 2018-05-08 2018-05-08 [facility] [id number] Common 10:00:00 10:00:00 [place] [address] [facility] 2018-02-14 2018-02-14 [facility] [id number] Common 13:45:00 13:45:00 t Specialty/[facility] 2018-02-14 2018-02-14 [facility] [id number] Common 13:45:00 13:45:00 t Specialty/U [facility] [place] Specialty rology - [facility] 2018-02-12 2018-02-12 [facility] [id number] Common 16:00:00 16:00:00 t Specialty/U Sp [place] Specialty ro[facility]y - [facility] 2018-02-12 2018-02-12 [facility] [id number] Common 15:28:00 15:28:00 t Specialty/U Sp [place] Specialty ro[facility]y - [facility] 2018-02-06 2018-02-06 [facility] [id number] Common 09:30:00 09:30:00 t [place] [employer] [address] [facility] 2018-01-28 2018-01-28 [facility] [id number] Common 14:50:00 14:50:00 t Specialty/U Sp [place] Specialty ro[facility]y [facility] /[facility] 2018-01-15 2018-01-15 [facility] [id number] Common 09:45:00 09:45:00 t Specialty/U Sp [place] Specialty ro[facility]y [facility] /[facility] 2018-01-02 2018-01-02 [facility] [id number] Common 09:30:00 09:30:00 t Specialty/U Sp [place] Specialty rology [facility] /[facility] 2017-12-31 2017-12-31 [facility] [id number] Common 10:00:00 10:00:[address] [employer] [address] [facility] 2017-10-29 2017-10-29 [facility] [id number] Common 10:00:00 10:00:[address] [employer] [address] [facility] Results This patient has no known results.
--- NOTE | 2022-02-24 19:22 | RAD REPORT ---
EXAM DESCRIPTION: Tonia Single View02/24/2022 7:15 pm CLINICAL HISTORY: Chest pain COMPARISON: 2020 FINDINGS: The lungs appear clear of acute infiltrate. The heart is normal size. Postsurgical change s involve the chest IMPRESSION: No acute abnormalities displayed
--- NOTE | 2022-02-24 19:46 | RAD REPORT ---
EXAM DESCRIPTION: CT - Head Brain Wo Cont - 02/24/2022 7:39 pm CLINICAL HISTORY: Dizziness COMPARISON: 2020 TECHNIQUE: Computed axial tomography of the head was obtained. IV contrast was not requested. All CT scans are performed using dose optimization technique as appropriate and may include automated exposure control or mA/KV adjustment according to patient size. FINDINGS: An intracranial bleed is not seen . The ventricles are normal in caliber. No extra-axial fluid collection is noted. No significant hypodensity within the brain is seen. Fluid within the maxillary, sphenoid and ethmoid sinuses IMPRESSION: No acute intracranial abnormality is seen. If patient's symptoms persist MRI of the bra in would be recommended. Fluid within the sinuses probably indicating acute sinusitis
[2022-02-24] MEDS ORDERED: MECLIZINE HCL 12.5 MG TAB ONE (20:03)
[2022-02-24 20:34] LABS: Protime INR 1.07
[2022-02-24 20:35] LABS: Absolute Lymphocytes (CBC) 1.6 K/uL (0.7-4.9); Hematocrit 32.9 % (36.0-45.0); Lymphocytes % 16.1 % (15.3-44.8); MPV 7.2 fL (7.6-11.3); RBC Red Blood Cell Count 3.69 M/uL (3.86-4.86)
[2022-02-24 20:51] LABS: Albumin 3.4 g/dL (3.4-5.0); Bilirubin Direct 0.3 mg/dL (0-0.2); Bilirubin Total 1.3 mg/dL (0.2-1.0); Potassium 4.4 mmol/L (3.5-5.1); Protein, Total 7.2 g/dL (6.4-8.2); Troponin High Sensitivity 7.6 pg/mL (<58.9)
[2022-02-24] MEDS ORDERED: NA CHLORIDE 0.9% 250 ML ONE (21:25)
--- NOTE | 2022-02-24 22:05 | EDPHYS ---
Physician Documentation [facility] Name: Sherri Parekh Age: 77 yrs Sex: Female : 1945 Arrival Date: 02/24/2022 Time: 18:13 Bed 15 Private MD: Fidel [facility] ED Physician Kenneth Zepeda HPI: 02/24 19:02 This 77 yrs old Female presents to ER via Ambulatory with complaints of pm1 Dizziness. 19:02 The patient presents with sense of spinning. Onset: The symptoms/episode began/occurred pm1 3 month(s) ago. 19:02 Context: occurred at an unknown location, occurred while the patient was changing pm1 position, mostly with getting up from bed. just prior to the episode the patient experienced no apparent symptoms, patient reports right ear pain present with spinning sensation that only lasts for a few seconds. Modifying factors: The symptoms are alleviated by closing eyes, holding head still, putting hands out by her side. Associated signs and symptoms: Pertinent negatives: abdominal pain, chest pain, nausea, shortness of breath, vomiting. Severity of symptoms: in the emergency department the symptoms have resolved Pain is currently a 0 / 10. Patient's baseline: Neuro: alert and fully oriented, Motor: no deficits, Ambulation: walks without assistance, Speech: normal. The patient has not recently seen a physician. Patient's dizziness ongoing for at least 3 months worse, more frequent, the past 2 weeks. Historical: - Allergies: 18:23 No Known Allergies; ap3 - PMHx: 18:23 CAD; Diabetes - NIDDM; High Cholesterol; Hypertension; ap3 - PSHx: 18:23 Coronary Angioplasty; Coronary artery bypass graft; ap3 - Immunization history:: Client reports receiving the 2nd dose of the Covid vaccine. - Social history:: Smoking status: Patient denies any tobacco usage or history of. ROS: 19:02 Constitutional: Negative for fever, chills, and weight loss, Cardiovascular: Negative pm1 for chest pain, palpitations, and edema, Respiratory: Negative for shortness of breath, cough, wheezing, and pleuritic chest pain, Abdomen/GI: Negative for abdominal pain, nausea, vomiting, diarrhea, and constipation. 19:02 MS/Extremity: Negative for injury and deformity, Skin: Negative for injury, rash, and discoloration. 19:02 ENT: Positive for ear pain, Negative for sore throat. 19:02 Neuro: Positive for dizziness, Negative for numbness, tingling, weakness. 19:02 All other systems are negative. Exam: 19:02 Constitutional: This is a well developed, well nourished patient who is awake, alert, pm1 and in no acute distress. Head/Face: Normocephalic, atraumatic. 19:02 Back: No spinal tenderness. No costovertebral tenderness. Full range of motion. Skin: Warm, dry with normal turgor. Normal color with no rashes, no lesions, and no evidence of cellulitis. MS/ Extremity: Pulses equal, no cyanosis. Neurovascular intact. Full, normal range of motion. 19:02 Eyes: Exam is negative for acute changes, Periorbital structures: appear normal, Pupils: no acute changes, Extraocular movements: no acute changes. 19:02 ENT: Exam is negative for acute changes, External ear(s): are unremarkable, Ear canal(s): are normal, TM's: are normal, Mouth: no acute changes, Lips: normal, moist, Oral mucosa: normal, pink and intact, moist. 19:02 Cardiovascular: Exam negative for acute changes, Rate: normal, Rhythm: regular, Pulses: no pulse deficits are appreciated, Heart sounds: normal, normal S1and S2. 19:02 Respiratory: Exam negative for acute changes, respiratory distress, shortness of breath, Breath sounds: are clear throughout. 19:02 Abdomen/GI: Exam negative for acute changes, Inspection: abdomen appears normal, Palpation: abdomen is soft and non-tender, in all quadrants. 19:02 Neuro: Exam negative for acute changes, Orientation: is normal, Mentation: is normal, Cranial nerves: CN II- XII are normal as tested, Cerebellar function: normal finger to nose testing, Motor: is normal, moves all fours, strength is 5/5 in all extremities, Sensation: no obvious gross deficits. Vital Signs: 18:21 BP 153 / 56; Pulse 57; Resp 18; Temp 98.7; Pulse Ox 100% ; Weight 44.45 kg; Height 4 ap3 ft. 9 in. (144.78 cm); 20:00 BP 154 / 49; Pulse 56; Resp 22; Pulse Ox 100% on R/A; ll3 21:00 BP 147 / 54; Pulse 64; Resp 18; Pulse Ox 98% on R/A; ll3 21:51 BP 142 / 46; Pulse 54; Resp 17; Pulse Ox 100% on R/A; ll3 18:21 Body Mass Index 21.21 (44.45 kg, 144.78 cm) ap3 MDM: 18:48 Patient medically screened. pm1 19:02 Data reviewed: vital signs. Data interpreted: Pulse oximetry: on room air is 100 %. pm1 Interpretation: normal. 22:03 Counseling: I had a detailed discussion with the patient and/or guardian regarding: the pm1 historical points, exam findings, and any diagnostic results supporting the discharge/admit diagnosis, lab results, radiology results, the need for outpatient follow up, to return to the emergency department if symptoms worsen or persist or if there are any questions or concerns that arise at home. 22:05 ED course: Acute sinusitis present on CT head, therefore will treat with antibiotic pm1 therapy. Patient with dizziness present for at last two weeks that has progressively gotten worse the past few weeks. Possibly worse due to sinusitis. 02/24 19:02 Order name: Basic Metabolic Panel; Complete Time: 20:52 pm1 02/24 19:02 Order name: CBC with Diff; Complete Time: 20:51 pm1 02/24 19:02 Order name: LFT's; Complete Time: 20:52 pm1 02/24 19:02 Order name: Magnesium; Complete Time: 20:52 pm1 02/24 19:02 Order name: NT PRO-BNP; Complete Time: 20:52 pm1 02/24 19:02 Order name: PT-INR; Complete Time: 20:51 pm1 02/24 19:02 Order name: Troponin HS; Complete Time: 20:52 pm1 02/24 19:02 Order name: XRAY Chest (1 view); Complete Time: 20:04 pm1 02/24 19:02 Order name: EKG; Complete Time: 19:02 pm1 02/24 19:02 Order name: Cardiac monitoring; Complete Time: 20:10 pm1 02/24 19:02 Order name: CT Head Brain wo Cont; Complete Time: 20:04 pm1 02/24 19:02 Order name: EKG - Nurse/Tech; Complete Time: 20:10 pm1 02/24 19:02 Order name: IV Saline Lock; Complete Time: 20:24 pm1 02/24 19:02 Order name: Labs collected and sent; Complete Time: 20:24 pm1 02/24 19:02 Order name: O2 Per Protocol; Complete Time: 20:10 pm1 02/24 19:02 Order name: O2 Sat Monitoring; Complete Time: 20:10 pm1 EC:02 Rate is 77 beats/min. Rhythm is regular, Normal Sinus Rhythm with No ectopy. QRS [place] pm1 is Normal. NC interval is normal. QRS interval is normal. QT interval is normal. No Q waves. T waves are Normal. No ST changes noted. Clinical impression: Normal ECG. Administered Medications: 19:50 Drug: Meclizine 25 mg Route: PO; ll3 21:51 Follow up: Response: No adverse reaction; Marked relief of symptoms ll3 20:53 CANCELLED (Physician Discretion): NS 0.9% 500 ml IV at bolus once pm1 21:33 Drug: NS 0.9% 250 ml Route: IV; Rate: bolus; Site: right antecubital; ll3 22:12 Follow up: Response: No adverse reaction; IV Status: Completed infusion; IV Intake: ll3 250ml Disposition Summary: 02/24/22 22:04 Discharge Ordered Location: Home pm1 Problem: new pm1 Symptoms: have improved pm1 Condition: Stable pm1 Diagnosis - Other acute sinusitis pm1 - Dizziness and giddiness pm1 Followup: pm1 - With: Emergency Department - When: As needed - Reason: Worsening of condition Followup: pm1 - With: Private Physician - When: 2 - 3 days - Reason: Recheck today's complaints, Continuance of care, Re-evaluation by your physician Discharge Instructions: - Discharge Summary Sheet pm1 - Dizziness pm1 - Sinusitis, Adult pm1 - Vertigo pm1 Forms: - Medication Reconciliation Form pm1 - Thank You Letter pm1 - Antibiotic Education pm1 - Prescription Opioid Use pm1 Prescriptions: - Amoxicillin 500 mg Oral Capsule - take 1 capsule by ORAL route every 8 hours for 10 days; 30 tablet; Refills: 0, pm1 Product Selection Permitted - Meclizine 25 mg Oral Tablet - take 1 tablet by ORAL route every 8 hours As needed; 30 tablet; Refills: 0, pm1 Product Selection Permitted Signatures: Dispatcher [employer] EDAgustin Wilson, POULTRY FARM LABORER POULTRY FARM [employer]ORER pm1 Kathy Mata RN RN ap3 Cristiana Black RN RN ll3 Corrections: (The following items were deleted from the chart) 20:53 20:53 NS 0.9% 500 ml IV at bolus once ordered. pm1 pm1
--- NOTE | 2022-02-24 22:05 | ER ---
Nurse's Notes [facility] Name: Sherri Parekh Age: 77 yrs Sex: Female : 1945 Arrival Date: 02/24/2022 Time: 18:13 Bed 15 Private MD: Glen Parra Diagnosis: Other acute sinusitis;Dizziness and giddiness Presentation: 02/24 18:21 Chief complaint: Patient states: she has been having dizzy spells off and on for approx ap3 one month. patient states she notified her PCP of them a few days ago and was told when she has another one to come to the ED. Patient reports having a dizzy spell today. Coronavirus screen: At this time, the client does not indicate any symptoms associated with coronavirus-19. Ebola Screen: No symptoms or risks identified at this time. Initial Sepsis Screen: Does the patient meet any 2 criteria? No. Patient's initial sepsis screen is negative. Does the patient have a suspected source of infection? No. Patient's initial sepsis screen is negative. Risk Assessment: Do you want to hurt yourself or someone else? Patient reports no desire to harm self or others. Onset of symptoms was January 19, 2022. 18:21 Method Of Arrival: Ambulatory ap3 18:21 Acuity: OTTO 3 ap3 Triage Assessment: 18:23 General: Appears in no apparent distress. Behavior is calm, cooperative, Reports ap3 fatigue for. Pain: Denies pain. Neuro: Level of Consciousness is awake, alert, obeys commands, Oriented to person, place, time, Gait is steady, Speech is normal. Neuro: Reports dizziness. Cardiovascular: Patient's skin is warm and dry. Respiratory: Airway is patent Respiratory effort is even, unlabored, Respiratory pattern is regular, symmetrical. Historical: - Allergies: 18:23 No Known Allergies; ap3 - PMHx: 18:23 CAD; Diabetes - NIDDM; High Cholesterol; Hypertension; ap3 - PSHx: 18:23 Coronary Angioplasty; Coronary artery bypass graft; ap3 - Immunization history:: Client reports receiving the 2nd dose of the Covid vaccine. - Social history:: Smoking status: Patient denies any tobacco usage or history of. Screenin:24 Abuse screen: Denies threats or abuse. Nutritional screening: No deficits noted. ap3 Tuberculosis screening: No symptoms or risk factors identified. 22:13 Fall Risk None identified. ll3 Assessment: 20:00 Reassessment: No changes from previously documented assessment. Patient and/or family ll3 updated on plan of care and expected duration. Pain level reassessed. Patient is alert, oriented x 3, equal unlabored respirations, skin warm/dry/pink. 21:00 Reassessment: No changes from previously documented assessment. Patient and/or family ll3 updated on plan of care and expected duration. Pain level reassessed. Patient is alert, oriented x 3, equal unlabored respirations, skin warm/dry/pink. 21:51 Reassessment: Patient and/or family updated on plan of care and expected duration. Pain ll3 level reassessed. Patient is alert, oriented x 3, equal unlabored respirations, skin warm/dry/pink. Patient states feeling better. Patient states symptoms have improved. Vital Signs: 18:21 BP 153 / 56; Pulse 57; Resp 18; Temp 98.7; Pulse Ox 100% ; Weight 44.45 kg; Height 4 ap3 ft. 9 in. (144.78 cm); 20:00 BP 154 / 49; Pulse 56; Resp 22; Pulse Ox 100% on R/A; ll3 21:00 BP 147 / 54; Pulse 64; Resp 18; Pulse Ox 98% on R/A; ll3 21:51 BP 142 / 46; Pulse 54; Resp 17; Pulse Ox 100% on R/A; ll3 18:21 Body Mass Index 21.21 (44.45 kg, 144.78 cm) ap3 ED Course: 18:13 Patient arrived in ED. am2 18:13 Glen Parra DO is Private Physician. am2 18:23 Triage completed. ap3 18:24 Arm band placed on right wrist. ap3 18:48 Agustin Garcia NP is PHCP. pm1 18:48 Kenneth Zepeda MD is Attending Physician. pm1 18:48 Emilia Sandy, ALEC is Primary Nurse. jh6 19:17 XRAY Chest (1 view) In Process Unspecified. EDMS 19:41 CT Head Brain wo Cont In Process Unspecified. EDMS 22:13 Patient has correct armband on for positive identification. Bed in low position. Call ll3 light in reach. Side rails up X 1. 22:13 No provider procedures requiring assistance completed. IV discontinued, intact, ll3 bleeding controlled, No redness/swelling at site. Pressure dressing applied. Administered Medications: 19:50 Drug: Meclizine 25 mg Route: PO; ll3 21:51 Follow up: Response: No adverse reaction; Marked relief of symptoms ll3 20:53 CANCELLED (Physician Discretion): NS 0.9% 500 ml IV at bolus once pm1 21:33 Drug: NS 0.9% 250 ml Route: IV; Rate: bolus; Site: right antecubital; ll3 22:12 Follow up: Response: No adverse reaction; IV Status: Completed infusion; IV Intake: ll3 250ml Medication: 22:13 VIS not applicable for this client. ll3 Intake: 22:12 IV: 250ml; Total: 250ml. ll3 Outcome: 22:04 Discharge ordered by . pm1 22:13 Discharged to home ambulatory, with family. ll3 22:13 Condition: stable 22:13 Discharge instructions given to patient, family, Instructed on discharge instructions, follow up and referral plans. medication usage, Demonstrated understanding of instructions, follow-up care, medications, Prescriptions given X 2. 22:14 Patient left the ED. ll3 Signatures: Dispatcher [employer] EDMS Agustin Garcia NP UAT TESTER pm1 Kathy Berger am2 Kathy Mata RN RN ap3 Cristiana Black RN RN 3 Emilia Sandy RN RN jh6
[2022-02-25 00:52] VITALS: TEMP 98.7
[2022-02-25 00:59] VITALS: BP 142/46; O2SAT 100
--- NOTE | 2022-02-27 13:51 | EKG ---
Test Date: 2022-02-24 Test Time: 20:00:11 [employer]: [employer] MEASUREMENT RESULTS: Intervals: Rate: 56 NC: 130 QRSD: 74 QT: 418 QTc: 403 Mccall: P: 62 NC: 130 QRS: 71 T: 75 INTERPRETIVE STATEMENTS: Sinus bradycardia Otherwise normal ECG Compared to ECG 08/23/2019 09:20:50 Sinus rhythm no longer present Electronically Signed On 02-27-22 13:47:19 CDT by Hung Chavez
== END 2022-02-24 22:14 | disposition home or self-care (01) ==
LOC: ER 18:08
DX: J01.80 Other acute sinusitis (principal); E11.9 Type 2 diabetes mellitus without complications; I10 Essential (primary) hypertension; Z95.1 Presence of aortocoronary bypass graft
CPT/HCPCS: 96365; 93005; 85025; 80048; 36415; 83735; 85610; 80076; 84484; 83880; 70450; 71045; 99283; J8597; J7050

== ENCOUNTER 2023-04-09 21:56 | Emergency (ER) | payer OTHER ==
--- OUTSIDE RECORDS SUMMARY | 2023-04-09 22:15 | XMS REPORT | Continuity of Care Document ---
:1945 Author Organization [facility] t Address [address] [facility] [place] [address] Care Team Providers Name Role Phone EM CYDNEY M Primary Care Physician Unavailable Parra Cydney M Attending Clinician Unavailable MACRINA PAIGE Attending Clinician Unavailable NAGA LAKHANI Attending Clinician Unavailable NAOMY BRAVO K.H. Attending Clinician Unavailable YVONNE HAZEL Attending Clinician Monet Naga Lopez MD Attending Clinician Isaiah Zacarias MD Attending Clinician Yvonne Hazel MD Attending Clinician 1, [facility] Attending Clinician Unavailable Griffin Fernandes MD Attending Clinician GRIFFIN FERNANDES Attending Clinician Unavailable Lawrence MORA, Sendellie K.H. Attending Clinician Unassigned, Cath/Ep Attending Clinician Unavailable ROMEO MENDIETA Attending Clinician Unavailable Romeo Mendieta MD Attending Clinician MARY MEJIA Attending Clinician Unavailable Mary Mejia DO Attending Clinician BRANDON ARIAS Attending Clinician Unavailable Brandon Arias MD Attending Clinician Doctor Unassigned, Nambe Attending Clinician Unavailable Pob, [facility] Lab Main Attending Clinician Unavailable PARDEEP ACOSTA Attending Clinician Unavailable PARDEEP ACOSTA Attending Clinician Unavailable Mamie MORA, Devon Stacy Attending Clinician Wallace, [facility] Test Attending Clinician Unavailable Jeremias MORA, Argelia Attending Clinician ARGELIA MCDOWELL Attending Clinician Unavailable Marly Hanley RN Attending Clinician Unavailable WALTER GALLARDO Attending Clinician Unavailable Nicolas Franco MD Attending Clinician Walter Gallardo MD Attending Clinician Yanely Zaidi Attending Clinician RAE CANTOR Attending Clinician Unavailable Alexsander Jordan Attending Clinician ALEXSANDER FALCON Attending Clinician Unavailable Emilia Ortiz MD Attending Clinician EMILIA ORTIZ Attending Clinician Unavailable YEYO GODFREY Attending Clinician Unavailable YEYO GODFREY Attending Clinician Unavailable [facility], [facility] Cardio Fac Attending Clinician Unavailable 2, [facility] Cardio Fac Room Attending Clinician Unavailable , [facility] Vascular Room 1 - Attending Clinician Unavailable MACRINA PAIGE Admitting Clinician Unavailable ISAIAH ZACARIAS Admitting Clinician Unavailable Isaiah Zacarias MD Admitting Clinician ROMEO MENDIETA Admitting Clinician Unavailable MARY MEJIA Admitting Clinician Unavailable BRANDON ARIAS Admitting Clinician Unavailable Brandon Arias MD Admitting Clinician PARDEEP ACOSTA Admitting Clinician Unavailable LAWRENCE SENDELLIE K.HAviva Admitting Clinician Unavailable Lawrence MORA Sendellie K.H. Admitting Clinician WALTER GALLARDO Admitting Clinician Unavailable Wlater Gallardo MD Admitting Clinician ALEXSANDER FALCON Admitting Clinician Unavailable Payers Payer Name Policy Type Policy Number Effective Date Expiration Date Carissa CALL [id number] 2020 HEALTHCARE 00:00:00 [facility] [place] 53 [id number] 2020 Common HEALTHCARE 00:00:00 [facility] - [facility] MEDICARE [facility] [employer] MEDICARE [id number] 2016 ERS 00:00:00 Problems Condition Condition Condition Status Onset Resolution Last Treating Co mments Source Name Details Category Date Date Treatment Clinician Date Bilateral Bilateral Disease Active Uni vers carotid carotid 8-16 ity of artery artery 00:00: [place] stenosis stenosis 00 Medica l Branch MANJARREZ MANJARREZ Disease Active Univers (dyspnea (dyspnea 8-16 ity of on on 00:00: [place] exertion) exertion) 00 Medi angela Branch PAD PAD Disease Active Univers (periphera (periphera 8-16 it y of l artery l artery 00:00: [place] disease) disease) 00 Medica l Branch H/O H/O Disease Active Univers carotid carotid 8-16 it[place] of endarterec endarterec [place] ram[place] ramona 00 Medical Branch Pericardia Pericardia Disease Active U nivers l effusion l effusion 8-16 it y of 00:00: [place] 00 Medical Branch Coronary Coronary Disease Active Unive rs artery artery 8-16 ity of disease disease 00:00: [place] involving involving [address] [place] Branch coronary coronary artery of artery [place] heart with heart with unstable unstable angina angina pectoris pectoris Syncope, Syncope, Disease Active Unive rs unspecifie unspecifie 8-16 it y of d syncope d syncope 00:[place] type type 00 [place] Chest Chest Disease Active Univers pain, pain, 8-16 ity of cardiac cardiac 00:00: [place] 00 Medical Branch Paroxysmal Paroxysmal Disease Active Overview : Univers supraventr supraventr 4-27 Formattin ity of icular icular 00:00: g of this [place] tachycardi tachycardi 00 note Me dical a a might be Branch different from the original. Added automatic ally from request for surgery [id number] Abnormal Abnormal Disease Active Overview: Un anita nuclear nuclear 04-03 Formattin ity o f stress stress 00:00: g of this [place] test test 00 note Medical might be Branch different from the original. Added automatic ally from request for surgery [id number] Atheroscle Atheroscle Disease Active Overview : Univers rosis of rosis of 03-23 [place] 00:[place]: g of this [place] artery of artery of 00 note Medi angela left lower left lower might be Branch extremity extremity different with with from the intermitte intermitte original. nt nt Added claudicati claudicati automatic on on ally from request for surgery [id number] Left arm Left arm Disease Active 2020-07 Unive rs pain pain 2-12 ity of 00:00: [place] 00 Medical Branch Left arm Left arm Disease Active 2020-07 Unive rs numbness numbness 2-12 ity of 00:00: [place] [facility] Dyslipidem Dyslipidem Disease Active U nivers ia ia 9 ity of 00:00: [place] 00 Medical Branch Chronic Chronic Disease Active Univers diastolic diastolic 03-30 ity of heart heart 00:00: [place] failure failure 00 Medical Branch Family Family Disease Active Univers history of history of 03-30 it y of premature premature 00:[place] CAD CAD 00 [place] Coronary Coronary Disease Active Unive rs artery artery 03-30 ity of disease disease 00:00: [place] involving involving 00 Medi angela coronary coronary Branch bypass bypass graft of graft [place] heart heart without without angina angina pectoris pectoris Atypical Atypical Disease Active Unive rs chest pain chest pain 03-29 it y of 00:00: [place] 00 Medical Branch Dyspnea on Dyspnea on Disease Active U nivers exertion exertion 2-22 ity of 00:00: [place] 00 Medical Branch Amnesia Memory Problem Common changes Spirit - [facility] Type II Diabetes Problem Common diabetes type 2, Spirit mellitus uncontroll - CH I uncontroll ed [facility] [id number] PAD Problem Common (periphera Spirit l artery - CHI disease) [facility] Incontinen Urinary Problem Comm on ce of incontinen Spirit urine ce, - CHI unspecifie St d type [facility] Essential Benign Problem Common hypertensi essential Spi rit on HTN - [facility] [id number] Occlusion Problem Comm on and Spirit stenosis [facility] artery Center History of History of Problem C ommon coronary coronary [facility] artery artery - [facility] bypass bypass grafting [facility] [id number] Overactive Problem Co mmon bladder Spirit [facility] Mixed Hyperlipid Problem Commo n hyperlipid emia, Spirit emia mixed [facility] [id number] Iron Problem Common deficiency Spirit anemia, - [facility] unspecifie [facility] iron [facility] deficiency Medica l anemia Center type [id number] Stress Problem Common incontinen Spirit ce - [facility] [id number] Bilateral Problem Com mon carotid [facility] artery - [facility] [id number] Anemia, Problem Commo n unspecifie [facility] d type [facility] [id number] Melanotic Problem Commo n stools [facility] [id number] Duodenitis Problem Com mon Spirit - [facility] [id number] +5th digit Problem Co mmon eff Spirit 04/22/20*[facility] [id number] GERD Problem Common without [facility] esophagiti [facility] [id number] Osteoporos Problem Com mon is, Spirit unspecifie - [facility] d osteoporos [facility] is type, Medical unspecifie Center d pathologic al fracture presence Allergies, Adverse Reactions, Alerts Allergy Allergy Status Severity Reaction(s) Onset Inactive Treating Comm ents Source Name Type Date Date Clinician NO KNOWN Drug Active [facility] Social History Social Habit Start Date Stop Date Quantity Comments Source History SDOH Social Unive rsity of [facility] Med ical Together Branch History SDOH Social Unive rsity of [facility] Medical Branch History SDOH Social Unive rsity of [facility] Medical Membership Branch History SDOH Social Unive rsity of [facility] Medical Meetings Branch Gender identity Universit y [facility] Sexual [facility] [place] History of Tobacco Common Spirit - Use [facility] Sex Assigned At Common Sp alma - [facility] Alcohol intake 2023-04-06 2023-04-06 Current University of 00:00:00 00:00:00 non-drinker of [place] Medi angela alcohol Branch (finding) Exposure to 2022-12-09 2022-12-19 Not sure University of SARS-CoV-2 (event) 00:00:00 06:19:00 [place] Medical [facility] History of Social 2022-10-13 2022-10-13 Univers ity of function 00:00:00 00:00:00 [place] [facility] History SDOH 2022-07-12 2022-07-12 1 University o f Alcohol Frequency 00:00:00 00:00:00 [place] M edical Branch History SDOH 2022-07-12 2022-07-12 0 University o f Alcohol Std Drinks 00:00:00 00:00:00 [place] Medical [facility] History SDOH 2022-07-12 2022-07-12 1 University o f Alcohol Binge 00:00:00 00:00:00 [place] Medic al Branch History SDOH Social 2022-07-12 2022-07-12 5 Unive rsity of Connections Phone 00:00:00 00:00:00 [place] M edical Branch History SDOH Social 2022-07-12 2022-07-12 4 Unive rsity of Connections Living 00:00:00 00:00:00 [place] [facility] History SDOH 2022-07-12 2022-07-12 7 University o f Physical Activity 00:00:00 00:00:00 [place] M edical DPW Branch History SDOH 2022-07-12 2022-07-12 3 University o f Physical Activity 00:00:00 00:00:00 [place] M edical MPS Branch History SDOH 2022-07-12 2022-07-12 1 University o f Financial 00:00:00 00:00:00 [place] [facility] History SDOH Food 2022-07-12 2022-07-12 1 Univers ity of Worry 00:00:00 00:00:00 [place] [facility] History SDOH Food 2022-07-12 2022-07-12 1 Univers ity of Scarcity 00:00:00 00:00:00 [place] [facility] History SDOH 2022-07-12 2022-07-12 2 University o f Transport Med 00:00:00 00:00:00 [place] Medic al Branch History SDOH 2022-07-12 2022-07-12 2 [place] o f Transport Non-Med 00:00:00 [facility]:00:00 [facility] 2022-07-11 2022-07-11 7 [facility] 00:00:00 00:00:00 [facility] Tobacco use and 2022-03-23 2022-03-23 Smokeless Universit y of exposure 00:00:00 00:00:00 tobacco non-user [facility] dical [place] Smoking Status Start Date Stop Date Source Never smoked tobacco [facility] [place] Medications Ordered Filled Start Stop Current Ordering Indication Dosage Frequency Signature Comments Components Source Medication Medication Date Date Medication? Clinician (SIG) Name Name clopidogreL Yes 75mg 75 mg, Univ ers (PLAVIX) 75 9-17 Oral, ity of mg tablet 14:00: DAILY, [place] 75 mg 00 First dose Medical on Sun Branch 04/08/23 at 0900, Until Discontinu ed, Routine metFORMIN Yes 1000mg Take 2 Univ ers (GLUCOPHAGE 9-16 tablets by it y of ) 500 mg 15:41: mouth in [place] tablet 46 the Medical morning Branch and 2 tablets in the evening. Take with meals. SEDRICK Yes 81mg Take 81 mg Univer s CHEWABLE 9-16 by mouth. ity of ASPIRIN 15:41: Indication [place] ORAL 46 s: takes 2 Medical per day Branch rosuvastati Yes 20mg Take 1 Univ ers n 20 mg 9-16 tablet by ity of tablet 15:41: mouth at [place] [address] bedtime. Medical Branch Cholecalcif Yes 2000U Take 1 Uni vers jose, 9-16 capsule by ity of Vitamin D3, 15:41: [place]. [place] 50 mcg 46 Medical (2,000 Branch unit) capsule isosorbide Yes 60mg 60 mg, Unive rs mononitrate 9-16 Oral, ity of (IMDUR) 24 14:00: DAILY, [place] hr tablet 00 First dose Medi angela 60 mg on Sat Branch 04/07/23 at 0900, Until Discontinu ed, Routine aspirin Yes 81mg 81 mg, Univers chewable 9-16 Oral, ity of tablet 81 14:00: DAILY, [place] mg 00 First dose Medical on Sat Branch 04/07/23 at 0900, Until Discontinu ed docusate 2022-0 Yes 100mg 100 mg, Unive rs (COLACE) 16 Oral, ity of capsule 100 14:00: DAILY, [place] mg 00 First dose Medical on Sat Branch 04/07/23 at 0900, Until Discontinu ed, Routine clopidogreL 2022-0 2023- No 300mg 300 mg, U nivers (PLAVIX) 04-07 Oral, ity of 300 mg 13:00: 13:42 ONCE, 1 [place] tablet 300 00 :00 dose, On Medic al mg Sat Branch 04/07/23 at 0800, Routine rosuvastati 0 Yes 20mg 20 mg, Univ ers n (CRESTOR) 16 Oral, QHS, it y of tablet 20 02:00: [place] mg 00 on Sun Medical 04/06/23 at Branch 2100, Until Discontinu ed, Routine lisinopriL 0 Yes 10mg 10 mg, Unive rs (PRINIVIL,Z 04-07 Oral, BID, it y of ESTRIL) 01:00: [place] tablet 10 00 on Fri Medical mg 04/06/23 at Branch 2000, Until Discontinu ed, Routine heparin 2022-0 Yes 5000U 5,000 Univers (porcine) 04-07 Units, ity of injection 01:00: Subcutaneo [place] 5,000 Units 00 us, Q12H, Med ical First dose Branch on Sun04/06/23 at 2000, Until Discontinu ed, Routine ticagrelor 0 2022- No 90mg 90 mg, Univ ers (BRILINTA) 04-07- Oral, BID, it y of tablet 90 01:00: 13:43 2 doses, Cr as mg 00 :00 First dose Medical on Fri Branch 04/06/23 at 2000, Last dose on 04/07/23 at 0800, Routine Sliding 2022-0 Yes Subcutaneo Univ ers Scale 9-15 us, TID ity of Insulin - 22:00: MEALS+HS, Cr as Lispro 00 First dose Medical (HumaLOG) on Sun Branch 04/06/23 at 1700, Until Discontinu ed, Routine metoprolol 2022-0 Yes 50mg 50 mg, Unive rs tartrate 9-15 Oral, BID ity of (LOPRESSOR) 22:00: MEALS, [place] tablet 50 00 First dose Medi angela mg on Sun Branch 04/06/23 at 1700, Until Discontinu ed, Routine glucagon 2022-0 Yes 1mg 1 mg, Univers (GLUCAGEN 04-06 Intramuscu ity of DIAGNOSTIC 20:23: lar, PRN, [place] KIT) 25 Starting Medical injection 1 on Sun Branch mg 04/06/23 at 1523, Until Discontinu ed, MARIELY, Blood Glucose < or = 70 mg/dL and patient is NPO, unable to swallow or has mental changes. dextrose 50 2022-0 Yes 25mL 25 mL, Univ ers % in water 04-06 Slow IV ity of (D50W) 20:23: Push, PRN, [place] injection 25 Starting Medica l 25 mL on Sun Branch 04/06/23 at 1523, Until Discontinu ed, MARIELY, Blood Glucose < or = 70 mg/dL and patient is NPO, unable to swallow or has mental status changes. NaCl 0.9% 2022- No 1000mL at 50 Univ ers (NS) IV 04-06 09-16 mL/hr, IV ity of infusion 20:15: 04:14 Infusion, Cr as 1,000 mL 00 :00 CONTINUOUS Medic al , Starting Branch on Sun04/06/23 at 1515, Until 04/06/23 at 2314, Routine acetaminoph 2022-0 Yes 650mg 650 mg, Un anita en 04-06 Oral, ity of (TYLENOL) 19:53: Q6HPRN, [place] tablet 650 55 Starting Medic al mg on Fri Branch 04/06/23 at 1453, Until Discontinu ed, Routine, Pain (scale 1-3) acetaminoph 2022-0 2022- Yes 1{tbl} 1 tablet, Univers en-codeine 04-06 Oral, ity of (TYLENOL 19:53: 19:52 Q6HPRN, [place] #3) 300-30 55 :55 Starting Medic al mg tablet 1 on Fri Branch tablet 04/06/23 at 1453, Until 04/08/23 at 1452, Routine, Pain (scale 4-6) acetaminoph 2022- No [id number] 650mg 650 mg, Univers en 04-06 Oral, ity of (TYLENOL) 18:45: 17:59 ONCE, 1 [place] tablet 650 00 :00 dose, On Medic al mg Fri Branch 04/06/23 at 1345, Routine dapaglifloz No 1 By Mouth Univers in 04-06 Daily for ity of (FARXIGA) 15:01: 00:00 90 [place] 10 mg 54 :00 Medical tablet Branch ferrous 2022- No 1 tablet Unive rs sulfate 325 04-06 Orally ity o f mg (65 mg 15:01: 00:00 Twice a [place] iron) EC 54 :00 day for 90 Medic al tablet Branch SEDRICK Yes 81mg Take 81 mg Univer s CHEWABLE 8-16 by mouth. ity of ASPIRIN 11:12: Indication [place] ORAL 11 s: takes 2 Medical per day Branch SEDRICK Yes 81mg Take 81 mg Univer s CHEWABLE 8-16 by mouth. ity of ASPIRIN 11:12: Indication [place] ORAL 11 s: takes 2 Medical per day Branch SEDRICK Yes 81mg Take 81 mg Univer s CHEWABLE 8-16 by mouth. ity of ASPIRIN 11:12: Indication [place] ORAL 11 s: takes 2 Medical per day Branch SEDRICK Yes 81mg Take 81 mg Univer s CHEWABLE 8-16 by mouth. ity of ASPIRIN 11:12: Indication [place] ORAL 11 s: takes 2 Medical per day Branch SEDRICK Yes 81mg Take 81 mg Univer s CHEWABLE 8-16 by mouth. ity of ASPIRIN 11:12: Indication [place] ORAL 11 s: takes 2 Medical per day Branch SEDRICK Yes 81mg Take 81 mg Univer s CHEWABLE 8-16 by mouth. ity of ASPIRIN 11:12: Indication [place] ORAL 11 s: takes 2 Medical per day Branch SEDRICK Yes 81mg Take 81 mg Univer s CHEWABLE 8-16 by mouth. ity of ASPIRIN 11:12: Indication [place] ORAL 11 s: takes 2 Medical per day Branch rosuvastati Yes 20mg Take 1 Univ ers n 20 mg 8-16 tablet by ity of tablet 11:12: mouth at [place] [address] bedtime. Medical Branch rosuvastati 2023-0 Yes 20mg Take 1 Univ ers n 20 mg 8-16 tablet by ity of tablet 11:12: mouth at [place] [address] bedtime. Medical Branch rosuvastati 2023-0 Yes 20mg Take 1 Univ ers n 20 mg 8-16 tablet by ity of tablet 11:12: mouth at [place] [address] bedtime. Medical Branch rosuvastati 2023-0 Yes 20mg Take 1 Univ ers n 20 mg 8-16 tablet by ity of tablet 11:12: mouth at [place] [address] bedtime. Medical Branch rosuvastati 2023-0 Yes 20mg Take 1 Univ ers n 20 mg 8-16 tablet by ity of tablet 11:12: mouth at [place] [address] bedtime. Medical Branch rosuvastati 2023-0 Yes 20mg Take 1 Univ ers n 20 mg 8-16 tablet by ity of tablet 11:12: mouth at [place] [address] bedtime. Medical Branch rosuvastati 3-0 Yes 20mg Take 1 Univ ers n 20 mg 8-16 tablet by ity of tablet 11:12: mouth at [place] 09 bedtime. Medical Branch dapaglifloz 3-0 Yes 1 By Mouth Univers in 8-16 Daily for ity of (FARXIGA) 11:12: 90 [place] 10 mg 06 Medical tablet Branch dapaglifloz 2023-0 Yes 1 By Mouth Univers in 8-16 Daily for ity of (FARXIGA) 11:12: 90 [place] 10 mg 06 Medical tablet Branch dapaglifloz 3-0 Yes 1 By Mouth Univers in 8-16 Daily for ity of (FARXIGA) 11:12: 90 [place] 10 mg 06 Medical tablet Branch dapaglifloz 2023-0 Yes 1 By Mouth Univers in 8-16 Daily for ity of (FARXIGA) 11:12: 90 [place] 10 mg 06 Medical tablet Branch dapaglifloz 2023-0 Yes 1 By Mouth Univers in 8-16 Daily for ity of (FARXIGA) 11:12: 90 [place] 10 mg 06 Medical tablet Branch dapaglifloz 2023-0 Yes 1 By Mouth Univers in 8-16 Daily for ity of (FARXIGA) 11:12: 90 [place] 10 mg 06 Medical tablet Branch dapaglifloz 2023-0 Yes 1 By Mouth Univers in 8-16 Daily for ity of (FARXIGA) 11:12: 90 [place] 10 mg 06 Medical tablet Branch ferrous 2022-0 Yes 1 tablet Univer s sulfate 325 8-16 Orally ity of mg (65 mg 10:50: Twice a [place] iron) EC 02 day for 90 Medic al tablet Branch ferrous 2022-0 Yes 1 tablet Univer s sulfate 325 8-16 Orally ity of mg (65 mg 10:50: Twice a [place] iron) EC 02 day for 90 Medic al tablet Branch ferrous 2022-0 Yes 1 tablet Univer s sulfate 325 8-16 Orally ity of mg (65 mg 10:50: Twice a [place] iron) EC 02 day for 90 Medic al tablet Branch ferrous 2022-0 Yes 1 tablet Univer s sulfate 325 8-16 Orally ity of mg (65 mg 10:50: Twice a [place] iron) EC 02 day for 90 Medic al tablet Branch ferrous 2022-0 Yes 1 tablet Univer s sulfate 325 8-16 Orally ity of mg (65 mg 10:50: Twice a [place] iron) EC 02 day for 90 Medic al tablet Branch ferrous 2022-0 Yes 1 tablet Univer s sulfate 325 8-16 Orally ity of mg (65 mg 10:50: Twice a [place] iron) EC 02 day for 90 Medic al tablet Branch ferrous 2022-0 Yes 1 tablet Univer s sulfate 325 8-16 Orally ity of mg (65 mg 10:50: Twice a [place] iron) EC 02 day for 90 Medic al tablet Branch lisinopriL 2022-0 Yes [id number] 10mg Take 1 Univers 10 mg 8-16 tablet by ity of tablet 00:00: mouth in [place] 00 the Medical morning Branch and 1 tablet in the evening. isosorbide 2023-0 Yes [id number] 60mg Take 1 Univers mononitrate 8-16 tablet by ity of 60 mg 24 hr 00:00: [place] tablet 00 the Medical morning. Branch lisinopriL 3-0 Yes [id number] 10mg Take 1 Univers 10 mg 8-16 tablet by ity of tablet 00:00: mouth in [place] 00 the Medical morning Branch and 1 tablet in the evening. isosorbide 2023-0 Yes [id number] 60mg Take 1 Univers mononitrate 8-16 tablet by ity of 60 mg 24 hr 00:00: mouth in [place] tablet 00 the Medical morning. Branch lisinopriL 2023-0 Yes [id number] 10mg Take 1 Univers 10 mg 8-16 tablet by ity of tablet 00:00: mouth in [place] 00 the Medical morning Branch and 1 tablet in the evening. isosorbide 2023-0 Yes [id number] 60mg Take 1 Univers mononitrate 8-16 tablet by ity of 60 mg 24 hr 00:00: mouth in [place] tablet 00 the Medical morning. Branch lisinopriL 2023-0 Yes [id number] 10mg Take 1 Univers 10 mg 8-16 tablet by ity of tablet 00:00: mouth in [place] 00 the Medical morning Branch and 1 tablet in the evening. isosorbide 2023-0 Yes [id number] 60mg Take 1 Univers mononitrate 8-16 tablet by ity of 60 mg 24 hr 00:00: mouth in [place] tablet 00 the morning. Branch lisinopriL 2023-0 Yes [id number] 10mg Take 1 Univers 10 mg 8-16 tablet by ity of tablet 00:00: mouth in [place] 00 the Medical morning Branch and 1 tablet in the evening. isosorbide 2023-0 Yes [id number] 60mg Take 1 Univers mononitrate 8-16 tablet by ity of 60 mg 24 hr 00:00: mouth in [place] tablet 00 the morning. Branch lisinopriL 2023-0 Yes [id number] 10mg Take 1 Univers 10 mg 8-16 tablet by ity of tablet 00:00: mouth in [place] the Medical morning Branch and 1 tablet in the evening. isosorbide 2023-0 Yes [id number] 60mg Take 1 Univers mononitrate 8-16 tablet by ity of 60 mg 24 hr 00:00: mouth in [place] tablet 00 the Medical morning. Branch lisinopriL 2023-0 Yes [id number] 10mg Take 1 Univers 10 mg 8-16 tablet by ity of tablet 00:00: mouth in [place] [address] the Medical morning Branch and 1 tablet in the evening. isosorbide 2023-0 Yes [id number] 60mg Take 1 Univers mononitrate 8-16 tablet by ity of 60 mg 24 hr 00:00: mouth in [place] tablet 00 the Medical morning. Branch lisinopriL 2023-0 Yes [id number] 10mg Take 1 Univers 10 mg 8-16 tablet by ity of tablet 00:00: mouth in [place] 00 the Medical morning Branch and 1 tablet in the evening. isosorbide 2023-0 Yes [id number] 60mg Take 1 Univers mononitrate 8-16 tablet by ity of 60 mg 24 hr 00:00: mouth in [place] tablet 00 the Medical morning. Branch clopidogreL 2023-0 Yes [id number] 75mg Take 1 Univers 75 mg 6-06 tablet by ity of tablet 00:00: mouth in [place] the Medical morning. Branch clopidogreL 2023-0 Yes [id number] 75mg Take 1 Univers 75 mg 6-06 tablet by ity of tablet 00:00: mouth in [place] the Medical morning. Branch clopidogreL 2023-0 Yes [id number] 75mg Take 1 Univers 75 mg 6-06 tablet by ity of tablet 00:00: mouth in [place] the Medical morning. Branch clopidogreL 2023-0 Yes [id number] 75mg Take 1 Univers 75 mg 6-06 tablet by ity of tablet 00:00: mouth in [place] the Medical morning. Branch clopidogreL 2023-0 Yes [id number] 75mg Take 1 Univers 75 mg 6-06 tablet by ity of tablet 00:00: mouth in [place] the Medical morning. Branch clopidogreL 2023-0 Yes [id number] 75mg Take 1 Univers 75 mg 6-06 tablet by ity of tablet 00:00: mouth in [place] the Medical morning. Branch clopidogreL 2023-0 Yes [id number] 75mg Take 1 Univers 75 mg 6-06 tablet by ity of tablet 00:00: mouth in [place] the Medical morning. Branch clopidogreL 2023-0 Yes [id number] 75mg Take 1 Univers 75 mg 6-06 tablet by ity of tablet 00:00: mouth in [place] 00 the Medical morning. Branch clopidogreL 2023-0 Yes [id number] 75mg Take 1 [facility] 75 mg 6-06 tablet by ity of tablet 00:00: mouth in [place] 00 the Medical morning. Branch clopidogreL 2023-0 Yes [id number] 75mg Take 1 [facility] 75 mg 6-06 tablet by ity of tablet 00:00: mouth in [place] the Medical morning. Branch clopidogreL 2023-0 Yes [id number] 75mg Take 1 [facility] 75 mg 6-06 tablet by ity of tablet 00:00: mouth in [place] 00 the morning. [place] clopidogreL 0 Yes [id number] 75mg Take 1 [facility] 75 mg 6-06 tablet by ity of tablet 00:00: mouth in [place] the morning. [place] clopidogreL 0 Yes [id number] 75mg Take 1 [facility] 75 mg 6-06 tablet by ity of tablet 00:00: mouth in [place] the morning. [place] clopidogreL Yes [id number] 75mg Take 1 [facility] 75 mg 6-06 tablet by ity of tablet 00:00: mouth in [place] 00 the morning. [place] lidocaine 2022- No ONCE INTRA U nivers 1% (PF) 12-19 PROCEDURE, ity o f (XYLOCAINE) 12:42: 12:50 [place] injection [place] :52 on [facility] 12/19/22 at [place] 0742, Until [facility] 12/19/22 at 0750, Routine, CV Intraproce dure vancomycin 0 2022- No CONTINUOUS [facility] 1000 mg in 12-19 PRN, ity of NS 200 mL 12:40: 12:40 Starting [facility] as RTU IV 00 :00 on [facility] Piggyback 12/19/22 at [facility] 0740, Until [facility] 12/19/22 at 0740, Administer over 60 Minutes, CV Intraproce dure metFORMIN 0 Yes 1000mg Take 1,000 [facility] (GLUCOPHAGE 5-30 mg by ity of ) 500 mg 09:46: mouth 2 [place] tablet 11 (two) Medical times [place] daily with meals. SEDRICK Yes 81mg Take 81 mg Univer s CHEWABLE 5-30 by mouth. ity of ASPIRIN 09:46: Indication [place] ORAL 11 s: takes 2 Medical per day Branch rosuvastati 0 Yes 20mg Take 1 Univ ers n 20 mg 5-30 tablet by ity of tablet 09:46: mouth at [place] 11 bedtime. Medical Branch Cholecalcif 2022-0 Yes 2000U Take 2,000 [facility] jose, 5-30 Units by ity of Vitamin D3, 09:46: [place]. [place] 50 [place]cg 11 Medical (2,000 Branch unit) capsule dapaglifloz 2022-0 Yes 1 By Mouth [facility] in 5-30 Daily for ity of () 09:46: 90 [place] 10 mg 11 Medical tablet Branch ferrous 2022-0 Yes 1 tablet Univer s sulfate 325 5-30 Orally ity of mg (65 mg 09:46: Twice a [place] iron) EC 11 day for 90 Medic al tablet Branch metFORMIN 2022-0 Yes 1000mg Take 1,000 [facility] (GLUCOPHAGE 5-30 mg by ity of ) 500 mg 09:46: mouth 2 [place] tablet 11 (two) Medical times Branch daily with meals. SEDRICK 2022-0 Yes 81mg Take 81 mg [facility] s CHEWABLE 5-30 by mouth. ity of ASPIRIN 09:46: Indication [place] ORAL 11 s: takes 2 Medical per day Branch rosuvastati 2022-0 Yes 20mg Take 1 [facility] ers n 20 mg 5-30 tablet by ity of tablet 09:46: mouth at [place] [address] bedtime. Medical Branch Cholecalcif 2022-0 Yes 2000U Take 2,000 [facility] jose, 5-30 Units by ity of Vitamin D3, 09:46: mouth. [place] 50 [place]cg 11 Medical (2,000 Branch unit) capsule dapaglifloz 2022-0 Yes 1 By Mouth [facility] in 5-30 Daily for ity of () 09:46: 90 [place] 10 mg 11 Medical tablet Branch ferrous 2022-0 Yes 1 tablet Univer s sulfate 325 5-30 Orally ity of mg (65 mg 09:46: Twice a [place] iron) EC 11 day for 90 Medic al tablet Branch metFORMIN 2022-0 Yes 1000mg Take 1,000 [facility] (GLUCOPHAGE 5-30 mg by ity of ) 500 mg 09:46: mouth 2 [place] tablet 11 (two) Medical times Branch daily with meals. SEDRICK 2022-0 Yes 81mg Take 81 mg Univer s CHEWABLE 5-30 by mouth. ity of ASPIRIN 09:46: Indication [place] ORAL 11 s: takes 2 Medical per day Branch rosuvastati 2022-0 Yes 20mg Take 1 [facility] ers n 20 mg 5-30 tablet by ity of tablet 09:46: mouth at [place] [address] bedtime. Medical Branch Cholecalcif 2022-0 Yes 2000U Take 2,000 [facility] jose, 5-30 Units by ity of Vitamin D3, 09:46: mouth. [place] 50 mcg 11 Medical (2,000 Branch unit) capsule dapaglifloz 2022-0 Yes 1 By Mouth [facility] in 5-30 Daily for ity of () 09:46: 90 [place] 10 mg 11 Medical tablet Branch ferrous 2022-0 Yes 1 tablet Univer s sulfate 325 5-30 Orally ity of mg (65 mg 09:46: Twice a [place] iron) EC 11 day for 90 Medic al tablet Branch metFORMIN 2022-0 Yes 1000mg Take 1,000 [facility] (GLUCOPHAGE 5-30 mg by ity of ) 500 mg 09:46: mouth 2 [place] tablet 11 (two) Medical times Branch daily with meals. SEDRICK 2022-0 Yes 81mg Take 81 mg Univer s CHEWABLE 5-30 by mouth. ity of ASPIRIN 09:46: Indication [place] ORAL 11 s: takes 2 Medical per day Branch rosuvastati 2022-0 Yes 20mg Take 1 Univ ers n 20 mg 5-30 tablet by ity of tablet 09:46: mouth at [place] [address] bedtime. Medical Branch Cholecalcif 0 Yes 2000U Take 2,000 [facility] jose, 5-30 Units by ity of Vitamin D3, 09:46: mouth. [place] 50 mcg 11 Medical (2,000 Branch unit) capsule dapaglifloz 2022-0 Yes 1 By Mouth [facility] in 5-30 Daily for ity of () 09:46: 90 [place] 10 mg 11 Medical tablet Branch ferrous 2022-0 Yes 1 tablet Univer s sulfate 325 5-30 Orally ity of mg (65 mg 09:46: Twice a [place] iron) EC 11 day for 90 Medic al tablet Branch metFORMIN 2022-0 Yes 1000mg Take 1,000 [facility] (GLUCOPHAGE 5-30 mg by ity of ) 500 mg 09:46: mouth 2 [place] tablet 11 (two) Medical times Branch daily with meals. SEDRICK 2022-0 Yes 81mg Take 81 mg Univer s CHEWABLE 5-30 by mouth. ity of ASPIRIN 09:46: Indication [place] ORAL 11 s: takes 2 Medical per day Branch rosuvastati 3-0 Yes 20mg Take 1 Univ ers n 20 mg 5-30 tablet by ity of tablet 09:46: mouth at [place] [address] bedtime. Medical Branch Cholecalcif 0 Yes 2000U Take 2,000 [facility] jose, 5-30 Units by ity of Vitamin D3, 09:46: mouth. [place] 50 [place]cg 11 Medical (2,000 Branch unit) capsule dapaglifloz 2022-0 Yes 1 By Mouth [facility] in 5-30 Daily for ity of ([facility]) 09:46: 90 [place] 10 mg 11 Medical tablet Branch ferrous 2022-0 Yes 1 tablet Univer s sulfate 325 5-30 Orally ity of mg (65 mg 09:46: Twice a [place] iron) EC 11 day for 90 Medic al tablet Branch metFORMIN 0 Yes 1000mg Take 1,000 [facility] (GLUCOPHAGE 5-30 mg by ity of ) 500 mg 09:46: mouth 2 [place] tablet 11 (two) Medical times Branch daily with meals. SEDRICK Yes 81mg Take 81 mg Univer s CHEWABLE 5-30 by mouth. ity of ASPIRIN 09:46: Indication [place] ORAL 11 s: takes 2 Medical per day Branch rosuvastati 0 Yes 20mg Take 1 Univ ers n 20 mg 5-30 tablet by ity of tablet 09:46: mouth at [place] [address] bedtime. Medical Branch Cholecalcif 0 Yes 2000U Take 2,000 [facility] jose, 5-30 Units by ity of Vitamin D3, 09:46: mouth. [place] 50 [place]cg 11 Medical (2,000 Branch unit) capsule dapaglifloz 0 Yes 1 By Mouth [facility] in 5-30 Daily for ity of ([facility]) 09:46: 90 [place] 10 mg 11 Medical tablet Branch ferrous 2022-0 Yes 1 tablet Univer s sulfate 325 5-30 Orally ity of mg (65 mg 09:46: Twice a [place] iron) EC 11 day for 90 Medic al tablet Branch metFORMIN 0 Yes 1000mg Take 1,000 [facility] (GLUCOPHAGE 5-30 mg by ity of ) 500 mg 09:46: mouth 2 [place] tablet 11 (two) Medical times Branch daily with meals. SEDRICK 0 Yes 81mg Take 81 mg Univer s CHEWABLE 5-30 by mouth. ity of ASPIRIN 09:46: Indication [place] ORAL 11 s: takes 2 Medical per day Branch rosuvastati 2022-0 Yes 20mg Take 1 Univ ers n 20 mg 5-30 tablet by ity of tablet 09:46: mouth at [place] [address] bedtime. Medical Branch Cholecalcif 2022-0 Yes 2000U Take 2,000 [facility] jose, 5-30 Units by ity of Vitamin D3, 09:46: mouth. [place] 50 [place]cg 11 Medical (2,000 Branch unit) capsule dapaglifloz 2022-0 Yes 1 By Mouth [facility] in 5-30 Daily for ity of () 09:46: 90 [place] 10 mg 11 Medical tablet Branch ferrous 2022-0 Yes 1 tablet Univer s sulfate 325 5-30 Orally ity of mg (65 mg 09:46: Twice a [place] iron) EC 11 day for 90 Medic al tablet Branch metFORMIN 2022-0 Yes 1000mg Take 1,000 [facility] (GLUCOPHAGE 5-30 mg by ity of ) 500 mg 09:46: mouth 2 [place] tablet 11 (two) Medical times Branch daily with meals. SEDRICK 2022-0 Yes 81mg Take 81 mg Univer s CHEWABLE 5-30 by mouth. ity of ASPIRIN 09:46: Indication [place] ORAL 11 s: takes 2 Medical per day Branch rosuvastati 2022-0 Yes 20mg Take 1 Univ ers n 20 mg 5-30 tablet by ity of tablet 09:46: mouth at [place] [address] bedtime. Medical Branch Cholecalcif 2022-0 Yes 2000U Take 2,000 [facility] jose, 5-30 Units by ity of Vitamin D3, 09:46: mouth. [place] 50 [place]cg 11 Medical (2,000 Branch unit) capsule dapaglifloz 2022-0 Yes 1 By Mouth [facility] in 5-30 Daily for ity of () 09:46: 90 [place] 10 mg 11 Medical tablet Branch ferrous 3-0 Yes 1 tablet Univer s sulfate 325 5-30 Orally ity of mg (65 mg 09:46: Twice a [place] iron) EC 11 day for 90 Medic al tablet Branch metFORMIN 2022-0 Yes 1000mg Take 1,000 [facility] (GLUCOPHAGE 5-30 mg by ity of ) 500 mg 09:46: mouth 2 [place] tablet 11 (two) Medical times Branch daily with meals. SEDRICK 3-0 Yes 81mg Take 81 mg Univer s CHEWABLE 5-30 by mouth. ity of ASPIRIN 09:46: Indication [place] ORAL 11 s: takes 2 Medical per day Branch rosuvastati 2022-0 Yes 20mg Take 1 Univ ers n 20 mg 5-30 tablet by ity of tablet 09:46: mouth at [place] [address] bedtime. Medical Branch Cholecalcif 2022-0 Yes 2000U Take 2,000 [facility] jose, 5-30 Units by ity of Vitamin D3, 09:46: mouth. [place] 50 [place] 11 Medical (2,000 Branch unit) capsule dapaglifloz 2022-0 Yes 1 By Mouth [facility] in 5-30 Daily for ity of (FARXIGA) 09:46: 90 [place] 10 mg 11 Medical tablet Branch ferrous 2022-0 Yes 1 tablet Univer s sulfate 325 5-30 Orally ity of mg (65 mg 09:46: Twice a [place] iron) EC 11 day for 90 Medic al tablet Branch metFORMIN 2022-0 Yes 1000mg Take 1,000 [facility] (GLUCOPHAGE 5-30 mg by ity of ) 500 mg 09:46: mouth 2 [place] tablet 11 (two) Medical times Branch daily with meals. Cholecalcif 2023-0 Yes 2000U Take 2,000 [facility] jose, 5-30 Units by ity of Vitamin D3, 09:46: mouth. [place] 50 [place] 11 Medical (2,000 Branch unit) capsule metFORMIN 3-0 Yes 1000mg Take 1,000 [facility] (GLUCOPHAGE 5-30 mg by ity of ) 500 mg 09:46: mouth 2 [place] tablet 11 (two) Medical times Branch daily with meals. Cholecalcif 2023-0 Yes 2000U Take 2,000 [facility] jose, 5-30 Units by ity of Vitamin D3, 09:46: mouth. [place] 50 [place]cg 11 Medical (2,000 Branch unit) capsule metFORMIN 3-0 Yes 1000mg Take 1,000 [facility] (GLUCOPHAGE 5-30 mg by ity of ) 500 mg 09:46: mouth 2 [place] tablet 11 (two) Medical times Branch daily with meals. Cholecalcif 2023-0 Yes 2000U Take 2,000 [facility] jose, 5-30 Units by ity of Vitamin D3, 09:46: mouth. [place] 50 [place]cg 11 Medical (2,000 Branch unit) capsule metFORMIN 2023-0 Yes 1000mg Take 1,000 [facility] (GLUCOPHAGE 5-30 mg by ity of ) 500 mg 09:46: mouth 2 [place] tablet 11 (two) Medical times Branch daily with meals. Cholecalcif 2023-0 Yes 2000U Take 2,000 [facility] jose, 5-30 Units by ity of Vitamin D3, 09:46: mouth. [place] 50 [place]cg 11 Medical (2,000 Branch unit) capsule metFORMIN 2023-0 Yes 1000mg Take 1,000 [facility] (GLUCOPHAGE 5-30 mg by ity of ) 500 mg 09:46: mouth 2 [place] tablet 11 (two) Medical times Branch daily with meals. Cholecalcif 2023-0 Yes 2000U Take 2,000 [facility] jose, 5-30 Units by ity of Vitamin D3, 09:46: mouth. [place] 50 [place]cg 11 Medical (2,000 Branch unit) capsule metFORMIN 2023-0 Yes 1000mg Take 1,000 [facility] (GLUCOPHAGE 5-30 mg by ity of ) 500 mg 09:46: mouth 2 [place] tablet 11 (two) Medical times Branch daily with meals. Cholecalcif 2023-0 Yes 2000U Take 2,000 [facility] jose, 5-30 Units by ity of Vitamin D3, 09:46: mouth. [place] 50 mcg 11 Medical (2,000 Branch unit) capsule metFORMIN 2023-0 Yes 1000mg Take 1,000 [facility] (GLUCOPHAGE 5-30 mg by ity of ) 500 mg 09:46: mouth 2 [place] tablet 11 (two) Medical times Branch daily with meals. Cholecalcif 2023-0 Yes 2000U Take 2,000 [facility] jose, 5-30 Units by ity of Vitamin D3, 09:46: mouth. [place] 50 [place] 11 Medical (2,000 Branch unit) capsule doxycycline 2023-0 Yes [id number] 100mg Take 1 [facility] hyclate 100 5-30 capsule by it y of mg capsule 00:00: mouth [place] 00 every 12 Medical (twelve) Branch hours. doxycycline 2023-0 Yes [id number] 100mg Take 1 [facility] hyclate 100 5-30 capsule by it y of mg capsule 00:00: mouth [place] 00 every 12 Medical (twelve) Branch hours. doxycycline 2023-0 Yes [id number] 100mg Take 1 [facility] hyclate 100 5-30 capsule by it y of mg capsule 00:00: mouth [place] 00 every 12 Medical (twelve) Branch hours. doxycycline 2023-0 Yes [id number] 100mg Take 1 [facility] hyclate 100 5-30 capsule by it y of mg capsule 00:00: mouth [place] 00 every 12 Medical (twelve) Branch hours. doxycycline 2023-0 Yes [id number] 100mg Take 1 [facility] hyclate 100 5-30 capsule by it y of mg capsule 00:00: mouth [place] 00 every 12 Medical (twelve) Branch hours. doxycycline 2023-0 Yes [id number] 100mg Take 1 [facility] hyclate 100 5-30 capsule by it y of mg capsule 00:00: mouth [place] 00 every 12 Medical (twelve) Branch hours. doxycycline 2023-0 Yes [id number] 100mg Take 1 [facility] hyclate 100 5-30 capsule by it y of mg capsule 00:00: mouth [place] 00 every 12 Medical (twelve) Branch hours. doxycycline 2023-0 Yes [id number] 100mg Take 1 [facility] hyclate 100 5-30 capsule by it y of mg capsule 00:00: mouth [place] 00 every 12 Medical (twelve) Branch hours. doxycycline 2023-0 Yes [id number] 100mg Take 1 [facility] hyclate 100 5-30 capsule by it y of mg capsule 00:00: mouth [place] 00 every 12 Medical (twelve) Branch hours. doxycycline 2023-0 Yes [id number] 100mg Take 1 [facility] hyclate 100 5-30 capsule by it y of mg capsule 00:00: mouth [place] 00 every 12 Medical (twelve) Branch hours. doxycycline 2023-0 Yes [id number] 100mg Take 1 [facility] hyclate 100 5-30 capsule by it y of mg capsule 00:00: mouth [place] 00 every 12 Medical (twelve) Branch hours. doxycycline 2023-0 Yes [id number] 100mg Take 1 [facility] hyclate 100 5-30 capsule by it y of mg capsule 00:00: mouth [place] 00 every 12 Medical (twelve) Branch hours. doxycycline 2023-0 Yes [id number] 100mg Take 1 [facility] hyclate 100 5-30 capsule by it y of mg capsule 00:00: mouth [place] 00 every 12 Medical (twelve) Branch hours. doxycycline 2023-0 Yes [id number] 100mg Take 1 [facility] hyclate 100 5-30 capsule by it y of mg capsule 00:00: mouth [place] 00 every 12 Medical (twelve) Branch hours. doxycycline 2023-0 Yes [id number] 100mg Take 1 [facility] hyclate 100 5-30 capsule by it y of mg capsule 00:00: mouth [place] 00 every 12 Medical (twelve) Branch hours. doxycycline 3-0 Yes [id number] 100mg Take 1 [facility] hyclate 100 5-30 capsule by it y of mg capsule 00:00: mouth [place] 00 every 12 Medical (twelve) Branch hours. doxycycline 3-0 2023- No [id number] 100mg Take 1 [facility] hyclate 100 5-30 09-15 capsule by i ty of mg capsule 00:00: 00:00 mouth [place] 00 :00 every 12 Medical (twelve) Branch hours. dapaglifloz 3-0 Yes 1 By Mouth Univers in 5-23 Daily for ity of (FARXIGA) 10:46: 90 [place] 10 mg 21 Medical tablet Branch ferrous 3-0 Yes 1 tablet Univer s sulfate 325 5-23 Orally ity of mg (65 mg 10:46: Twice a [place] iron) EC 21 day for 90 Medic al tablet Branch dapaglifloz 3-0 Yes 1 By Mouth Univers in 5-23 Daily for ity of (FARXIGA) 10:46: 90 [place] 10 mg 21 Medical tablet Branch ferrous 3-0 Yes 1 tablet Univer s sulfate 325 5-23 Orally ity of mg (65 mg 10:46: Twice a [place] iron) EC 21 day for 90 Medic al tablet Branch isosorbide 3-0 Yes [id number] 30mg Take 1 [facility] mononitrate 5-16 tablet by ity of 30 mg 24 hr 00:00: mouth in [place] tablet 00 the Medical morning. Branch isosorbide 2023-0 Yes [id number] 30mg Take 1 [facility] mononitrate 5-16 tablet by ity of 30 mg 24 hr 00:00: mouth in [place] tablet 00 the Medical morning. Branch isosorbide 2023-0 Yes [id number] 30mg Take 1 [facility] mononitrate 5-16 tablet by ity of 30 mg 24 hr 00:00: mouth in [place] tablet 00 the Medical morning. Branch isosorbide 2023-0 Yes [id number] 30mg Take 1 [facility] mononitrate 5-16 tablet by ity of 30 mg 24 hr 00:00: mouth in [place] tablet 00 the Medical morning. Branch isosorbide 2023-0 Yes [id number] 30mg Take 1 [facility] mononitrate 5-16 tablet by ity of 30 mg 24 hr 00:00: mouth in [place] tablet 00 the Medical morning. Branch isosorbide 2023-0 Yes [id number] 30mg Take 1 [facility] mononitrate 5-16 tablet by ity of 30 mg 24 hr 00:00: mouth in [place] tablet 00 the Medical morning. Branch isosorbide 2023-0 Yes [id number] 30mg Take 1 [facility] mononitrate 5-16 tablet by ity of 30 mg 24 hr 00:00: mouth in [place] tablet 00 the Medical morning. Branch isosorbide 2023-0 Yes [id number] 30mg Take 1 [facility] mononitrate 5-16 tablet by ity of 30 mg 24 hr 00:00: mouth in [place] tablet 00 the Medical morning. Branch isosorbide 3-0 Yes [id number] 30mg Take 1 [facility] mononitrate 5-16 tablet by ity of 30 mg 24 hr 00:00: mouth in [place] tablet 00 the Medical morning. Branch isosorbide 3-0 Yes [id number] 30mg Take 1 [facility] mononitrate 5-16 tablet by ity of 30 mg 24 hr 00:00: mouth in [place] tablet 00 the Medical morning. Branch isosorbide 2023-0 2023- No [id number] 30mg Take 1 [facility] mononitrate 5-16 08-16 tablet by it y of 30 mg 24 hr 00:00: 00:00 mouth in [place] tablet 00 :00 the Medical morning. Branch isosorbide 2023-0 3- No [id number] 30mg Take 1 [facility] mononitrate 5-16 08-16 tablet by it y of 30 mg 24 hr 00:00: 00:00 mouth in [place] tablet 00 :00 the Medical morning. Branch isosorbide 2023-0 2023- No [id number] 30mg Take 1 [facility] mononitrate 5-16 08-16 tablet by it y of 30 mg 24 hr 00:00: 00:00 mouth in [place] tablet 00 :00 the Medical morning. Branch SEDRICK 3-0 Yes 81mg Take 81 mg Univer s CHEWABLE 4-27 by mouth. ity of ASPIRIN 08:48: Indication [place] ORAL 33 s: takes 2 Medical per day Branch rosuvastati 2022-0 Yes 20mg Take 1 Univ ers n 20 mg 4-27 tablet by ity of tablet 08:48: mouth at [place] [address] bedtime. Medical Branch SEDRICK 0 Yes 81mg Take 81 mg Univer s CHEWABLE 4-27 by mouth. ity of ASPIRIN 08:48: Indication [place] ORAL 33 s: takes 2 Medical per day Branch rosuvastati 2022-0 Yes 20mg Take 1 Univ ers n 20 mg 4-27 tablet by ity of tablet 08:48: mouth at [place] [address] bedtime. Medical Branch SEDRICK 0 Yes 81mg Take 81 mg Univer s CHEWABLE 4-27 by mouth. ity of ASPIRIN 08:48: Indication [place] ORAL 33 s: takes 2 Medical per day Branch rosuvastati 2022-0 Yes 20mg Take 1 Univ ers n 20 mg 4-27 tablet by ity of tablet 08:48: mouth at [place] [address] bedtime. Medical Branch SEDRICK 0 Yes 81mg Take 81 mg Univer s CHEWABLE 4-27 by mouth. ity of ASPIRIN 08:48: Indication [place] ORAL 33 s: takes 2 Medical per day Branch rosuvastati 2022-0 Yes 20mg Take 1 Univ ers n 20 mg 4-27 tablet by ity of tablet 08:48: mouth at [place] [address] bedtime. Medical Branch SEDRICK 0 Yes 81mg Take 81 mg Univer s CHEWABLE 4-27 by mouth. ity of ASPIRIN 08:48: Indication [place] ORAL 33 s: takes 2 Medical per day Branch rosuvastati 2022-0 Yes 20mg Take 1 Univ ers n 20 mg 4-27 tablet by ity of tablet 08:48: mouth at [place] [address] bedtime. Medical Branch SEDRICK 0 Yes 81mg Take 81 mg Univer s CHEWABLE 4-27 by mouth. ity of ASPIRIN 08:48: Indication [place] ORAL 33 s: takes 2 Medical per day Branch rosuvastati 2022-0 Yes 20mg Take 1 Univ ers n 20 mg 4-27 tablet by ity of tablet 08:48: mouth at [place] [address] bedtime. Medical Branch SEDRICK 2022-0 Yes 81mg Take 81 mg Univer s CHEWABLE 3-24 by mouth. ity of ASPIRIN 10:26: Indication [place] ORAL 34 s: takes 2 Medical per day Branch rosuvastati 2023-0 Yes 20mg Take 20 mg Univers n 20 mg 3-24 by mouth ity of tablet 10:26: at [place] 34 bedtime. Medical Branch SEDRICK 2023-0 Yes 81mg Take 81 mg Univer s CHEWABLE 3-24 by mouth. ity of ASPIRIN 10:26: Indication [place] ORAL 34 s: takes 2 Medical per day Branch rosuvastati 2023-0 Yes 20mg Take 20 mg Univers n 20 mg 3-24 by mouth ity of tablet 10:26: at [place] 34 bedtime. Medical Branch ibuprofen 2023-0 Yes 800mg Take 1 Unive rs 800 mg 3-21 tablet by ity of tablet 00:00: mouth [place] 00 every 8 Medical (eight) Branch hours as needed. ibuprofen 2023-0 Yes 800mg Take 1 Un[facility] rs 800 mg 3-21 tablet by ity of tablet 00:00: mouth [place] 00 every 8 Medical (eight) Branch hours as needed. ibuprofen 2023-0 Yes 800mg Take 1 Un[facility] rs 800 mg 3-21 tablet by ity of tablet 00:00: mouth [place] 00 every 8 Medical (eight) Branch hours as needed. ibuprofen 2023-0 Yes 800mg Take 1 Un[facility] rs 800 mg 3-21 tablet by ity of tablet 00:00: mouth [place] 00 every 8 Medical (eight) Branch hours as needed. ibuprofen 2023-0 Yes 800mg Take 1 Un[facility] rs 800 mg 3-21 tablet by ity of tablet 00:00: mouth [place] 00 every 8 Medical (eight) Branch hours as needed. ibuprofen 2023-0 Yes 800mg Take 1 [facility] rs 800 mg 3-21 tablet by ity of tablet 00:00: mouth [place] 00 every 8 Medical (eight) Branch hours as needed. ibuprofen 2023-0 Yes 800mg Take 1 Un[facility] rs 800 mg 3-21 tablet by ity of tablet 00:00: mouth [place] 00 every 8 Medical (eight) Branch hours as needed. ibuprofen 2023-0 Yes 800mg Take 1 Un[facility] rs 800 mg 3-21 tablet by ity of tablet 00:00: mouth [place] 00 every 8 Medical (eight) Branch hours as needed. ibuprofen 2023-0 Yes 800mg Take 1 Un[facility] rs 800 mg 3-21 tablet by ity of tablet 00:00: mouth [place] 00 every 8 Medical (eight) Branch hours as needed. ibuprofen 2023-0 Yes 800mg Take 1 [facility] rs 800 mg 3-21 tablet by ity of tablet 00:00: mouth [place] 00 every 8 Medical (eight) Branch hours as needed. ibuprofen 2023-0 Yes 800mg Take 1 [facility] rs 800 mg 3-21 tablet by ity of tablet 00:00: mouth [place] 00 every 8 Medical (eight) Branch hours as needed. ibuprofen 2023-0 Yes 800mg Take 1 Un[facility] rs 800 mg 3-21 tablet by ity of tablet 00:00: mouth [place] 00 every 8 Medical (eight) Branch hours as needed. ibuprofen 2023-0 Yes 800mg Take 1 [facility] rs 800 mg 3-21 tablet by ity of tablet 00:00: mouth [place] 00 every 8 Medical (eight) Branch hours as needed. ibuprofen 2023-0 Yes 800mg Take 1 [facility] rs 800 mg 3-21 tablet by ity of tablet 00:00: mouth [place] 00 every 8 Medical (eight) Branch hours as needed. ibuprofen 2023-0 Yes 800mg Take 1 [facility] rs 800 mg 3-21 tablet by ity of tablet 00:00: mouth [place] 00 every 8 Medical (eight) Branch hours as needed. ibuprofen 2023-0 Yes 800mg Take 1 [facility] rs 800 mg 3-21 tablet by ity of tablet 00:00: mouth [place] 00 every 8 Medical (eight) Branch hours as needed. ibuprofen 2023-0 Yes 800mg Take 1 [facility] rs 800 mg 3-21 tablet by ity of tablet 00:00: mouth [place] 00 every 8 Medical (eight) Branch hours as needed. ibuprofen 2023-0 Yes 800mg Take 1 [facility] rs 800 mg 3-21 tablet by ity of tablet 00:00: mouth [place] 00 every 8 Medical (eight) Branch hours as needed. ibuprofen 2023-0 Yes 800mg Take 1 [facility] rs 800 mg 3-21 tablet by ity of tablet 00:00: mouth [place] 00 every 8 Medical (eight) Branch hours as needed. rosuvastati 2023-0 Yes 20mg Take 20 mg Univers n 20 mg 2-02 by mouth ity of tablet 16:47: at [place] [address] bedtime. Medical Branch rosuvastati 2023-0 Yes 20mg Take 20 mg Univers n 20 mg 2-02 by mouth ity of tablet 16:47: at [place] [address] bedtime. Medical Branch rosuvastati 2023-0 Yes 20mg Take 20 mg Univers n 20 mg 2-02 by mouth ity of tablet 16:47: at [place] [address] bedtime. Medical Branch rosuvastati 0 Yes 20mg Take 20 mg Univers n 20 mg 2-02 by mouth ity of tablet 16:47: at [place] [address] bedtime. Medical Branch rosuvastati 0 Yes 20mg Take 20 mg Univers n 20 mg 2-02 by mouth ity of tablet 16:47: at [place] [address] bedtime. Medical Branch rosuvastati 0 Yes 20mg Take 20 mg Univers n 20 mg 2-02 by mouth ity of tablet 16:47: at [place] [address] bedtime. Medical Branch metFORMIN 0 Yes 1000mg Take 1,000 [facility] (GLUCOPHAGE 2-02 mg by ity of ) 500 mg 15:27: mouth 2 [place] tablet 49 (two) Medical times [place] daily with meals. SEDRICK 0 Yes 81mg Take 81 mg Univer s CHEWABLE 2-02 by mouth. ity of ASPIRIN 15:27: Indication [place] ORAL 49 s: takes 2 Medical per day Branch Cholecalcif 0 Yes 2000U Take 2,000 [facility] jose, 2-02 Units by ity of Vitamin D3, 15:27: mouth. [place] 50 [place]cg 49 Medical (2,000 Branch unit) capsule metFORMIN 0 Yes 1000mg Take 1,000 [facility] (GLUCOPHAGE 2-02 mg by ity of ) 500 mg 15:27: mouth 2 [place] tablet 49 (two) Medical times [place] daily with meals. SEDRICK 2022-0 Yes 81mg Take 81 mg Univer s CHEWABLE 2-02 by mouth. ity of ASPIRIN 15:27: Indication [place] ORAL 49 s: takes 2 Medical per day Branch Cholecalcif 2022-0 Yes 2000U Take 2,000 [facility] jose, 2-02 Units by ity of Vitamin D3, 15:27: mouth. [place] 50 [place] 49 Medical (2,000 Branch unit) capsule metFORMIN 0 Yes 1000mg Take 1,000 [facility] (GLUCOPHAGE 2-02 mg by ity of ) 500 mg 15:27: mouth 2 [place] tablet 49 (two) Medical times Branch daily with meals. SEDRICK 2022-0 Yes 81mg Take 81 mg Univer s CHEWABLE 2-02 by mouth. ity of ASPIRIN 15:27: Indication [place] ORAL 49 s: takes 2 Medical per day Branch Cholecalcif 2023-0 Yes 2000U Take 2,000 [facility] jose, 2-02 Units by ity of Vitamin D3, 15:27: [place] 50 [place]cg 49 [facility] (2,000 Branch unit) capsule metFORMIN 3-0 Yes 1000mg Take 1,000 [facility] (GLUCOPHAGE 2-02 mg by ity of ) 500 mg 15:27: mouth 2 [place] tablet 49 (two) Medical times Branch daily with meals. SEDRICK 2023-0 Yes 81mg Take 81 mg Univer s CHEWABLE 2-02 by mouth. ity of ASPIRIN 15:27: Indication [place] ORAL 49 s: takes 2 Medical per day Branch Cholecalcif 2022-0 Yes 2000U Take 2,000 [facility] jose, 2-02 Units by ity of Vitamin D3, 15:27: mouth. [place] 50 mcg 49 Medical (2,000 Branch unit) capsule metFORMIN 2022-0 Yes 1000mg Take 1,000 [facility] (GLUCOPHAGE 2-02 mg by ity of ) 500 mg 15:27: mouth 2 [place] tablet 49 (two) Medical times Branch daily with meals. SEDRICK 2023-0 Yes 81mg Take 81 mg Univer s CHEWABLE 2-02 by mouth. ity of ASPIRIN 15:27: Indication [place] ORAL 49 s: takes 2 Medical per day Branch Cholecalcif 3-0 Yes 2000U Take 2,000 [facility] jose, 2-02 Units by ity of Vitamin D3, 15:27: mouth. [place] 50 mcg 49 Medical (2,000 Branch unit) capsule metFORMIN 3-0 Yes 1000mg Take 1,000 [facility] (GLUCOPHAGE 2-02 mg by ity of ) 500 mg 15:27: mouth 2 [place] tablet 49 (two) Medical times Branch daily with meals. SEDRICK 2023-0 Yes 81mg Take 81 mg Univer s CHEWABLE 2-02 by mouth. ity of ASPIRIN 15:27: Indication [place] ORAL 49 s: takes 2 Medical per day Branch Cholecalcif 2023-0 Yes 2000U Take 2,000 [facility] jose, 2-02 Units by ity of Vitamin D3, 15:27: mouth. [place] 50 mcg 49 Medical (2,000 Branch unit) capsule metFORMIN 2023-0 Yes 1000mg Take 1,000 [facility] (GLUCOPHAGE 2-02 mg by ity of ) 500 mg 15:27: mouth 2 [place] tablet 49 (two) Medical times Branch daily with meals. Cholecalcif 2023-0 Yes 2000U Take 2,000 [facility] jose, 2-02 Units by ity of Vitamin D3, 15:27: mouth. [place] 50 mcg 49 Medical (2,000 Branch unit) capsule metFORMIN 2023-0 Yes 1000mg Take 1,000 [facility] (GLUCOPHAGE 2-02 mg by ity of ) 500 mg 15:27: mouth 2 [place] tablet 49 (two) Medical times Branch daily with meals. Cholecalcif 2023-0 Yes 2000U Take 2,000 [facility] jose, 2-02 Units by ity of Vitamin D3, 15:27: mouth. [place] 50 mcg 49 Medical (2,000 Branch unit) capsule metFORMIN 2023-0 Yes 1000mg Take 1,000 [facility] (GLUCOPHAGE 2-02 mg by ity of ) 500 mg 15:27: mouth 2 [place] tablet 49 (two) Medical times Branch daily with meals. Cholecalcif 2023-0 Yes 2000U Take 2,000 [facility] jose, 2-02 Units by ity of Vitamin D3, 15:27: mouth. [place] 50 mcg 49 Medical (2,000 Branch unit) capsule metFORMIN 2023-0 Yes 1000mg Take 1,000 [facility] (GLUCOPHAGE 2-02 mg by ity of ) 500 mg 15:27: mouth 2 [place] tablet 49 (two) Medical times Branch daily with meals. Cholecalcif 2023-0 Yes 2000U Take 2,000 [facility] jose, 2-02 Units by ity of Vitamin D3, 15:27: mouth. [place] 50 mcg 49 Medical (2,000 Branch unit) capsule metFORMIN 2023-0 Yes 1000mg Take 1,000 [facility] (GLUCOPHAGE 2-02 mg by ity of ) 500 mg 15:27: mouth 2 [place] tablet 49 (two) Medical times Branch daily with meals. Cholecalcif 2023-0 Yes 2000U Take 2,000 [facility] jose, 2-02 Units by ity of Vitamin D3, 15:27: mouth. [place] 50 mcg 49 Medical (2,000 Branch unit) capsule metFORMIN 2023-0 Yes 1000mg Take 1,000 [facility] (GLUCOPHAGE 2-02 mg by ity of ) 500 mg 15:27: mouth 2 [place] tablet 49 (two) Medical times Branch daily with meals. Cholecalcif 2023-0 Yes 2000U Take 2,000 [facility] jose, 2-02 Units by ity of Vitamin D3, 15:27: mouth. [place] 50 mcg 49 Medical (2,000 Branch unit) capsule metFORMIN 2023-0 Yes 1000mg Take 1,000 [facility] (GLUCOPHAGE 2-02 mg by ity of ) 500 mg 15:27: mouth 2 [place] tablet 49 (two) Medical times Branch daily with meals. Cholecalcif 2023-0 Yes 2000U Take 2,000 [facility] jose, 2-02 Units by ity of Vitamin D3, 15:27: mouth. [place] 50 mcg 49 Medical (2,000 Branch unit) capsule metFORMIN 2023-0 Yes 1000mg Take 1,000 [facility] (GLUCOPHAGE 2-02 mg by ity of ) 500 mg 15:27: mouth 2 [place] tablet 49 (two) Medical times Branch daily with meals. Cholecalcif 2023-0 Yes 2000U Take 2,000 [facility] jose, 2-02 Units by ity of Vitamin D3, 15:27: mouth. [place] 50 [place]cg 49 Medical (2,000 Branch unit) capsule isosorbide 2023-0 Yes [id number] 30mg Take 1 [facility] mononitrate 2-02 tablet by ity of 30 mg 24 hr 00:00: mouth in [place] tablet 00 the Medical morning. Branch isosorbide 2023-0 Yes [id number] 30mg Take 1 [facility] mononitrate 2-02 tablet by ity of 30 mg 24 hr 00:00: mouth in [place] tablet 00 the Medical morning. Branch isosorbide 2023-0 Yes [id number] 30mg Take 1 [facility] mononitrate 2-02 tablet by ity of 30 mg 24 hr 00:00: mouth in [place] tablet 00 the Medical morning. Branch isosorbide 2023-0 Yes [id number] 30mg Take 1 [facility] mononitrate 2-02 tablet by ity of 30 mg 24 hr 00:00: mouth in [place] tablet 00 the Medical morning. Branch isosorbide 2023-0 Yes [id number] 30mg Take 1 [facility] mononitrate 2-02 tablet by ity of 30 mg 24 hr 00:00: mouth in [place] tablet 00 the Medical morning. Branch isosorbide 3-0 Yes [id number] 30mg Take 1 [facility] mononitrate 2-02 tablet by ity of 30 mg 24 hr 00:00: mouth in [place] tablet 00 the Medical morning. Branch isosorbide 3-0 Yes [id number] 30mg Take 1 [facility] mononitrate 2-02 tablet by ity of 30 mg 24 hr 00:00: mouth in [place] tablet 00 the Medical morning. Branch isosorbide 3-0 Yes [id number] 30mg Take 1 [facility] mononitrate 2-02 tablet by ity of 30 mg 24 hr 00:00: mouth in [place] tablet 00 the Medical morning. Branch isosorbide 3-0 Yes [id number] 30mg Take 1 [facility] mononitrate 2-02 tablet by ity of 30 mg 24 hr 00:00: mouth in [place] tablet 00 the Medical morning. Branch isosorbide 3-0 Yes [id number] 30mg Take 1 [facility] mononitrate 2-02 tablet by ity of 30 mg 24 hr 00:00: mouth in [place] tablet 00 the Medical morning. Branch isosorbide 3-0 Yes [id number] 30mg Take 1 [facility] mononitrate 2-02 tablet by ity of 30 mg 24 hr 00:00: mouth in [place] tablet 00 the Medical morning. Branch isosorbide 3-0 3- No [id number] 30mg Take 1 [facility] mononitrate 2-02 05-16 tablet by it y of 30 mg 24 hr 00:00: 00:00 mouth in [place] tablet 00 :00 the Medical morning. Branch cefTRIAXone 3-0 2023- No 1000mg 1,000 mg, Univers (ROCEPHIN) 08-20 Intravenou it y of 1,000 mg in 03:45: 03:45 s, ONCE, 1 [place] NaCl 0.9% 00 :00 dose, On Medica l (NS) 50 mL Sat Branch MINI-BAG 08/19/22 at 2145, Administer over 30 Minutes, 50 mL
R celeste for Anti-Infec tive: Documented Infection< br>Documen olvin Infection Site: Urine<br&g t;Duration of Therapy: Other (see Comments) cefdinir 2022-0 3- No [id number] 300mg Take 1 U nivers 300 mg 08-19- capsule by ity of capsule 00:00: 05:59 mouth [place] 00 :00 every 12 Medical (twelve) Branch hours for 5 days. cefdinir 2023-0 2023- No [id number] 300mg Take 1 U nivers 300 mg 08-19- capsule by ity of capsule 00:00: 05:59 mouth [place] 00 :00 every 12 Medical (twelve) Branch hours for 5 days. cefdinir 2023-0 2023- No [id number] 300mg Take 1 U nivers 300 mg 08-19- capsule by ity of capsule 00:00: 05:59 mouth [place] 00 :00 every 12 Medical (twelve) Branch hours for 5 days. cefdinir 3-0 3- No [id number] 300mg Take 1 U nivers 300 mg 08-19- capsule by ity of capsule 00:00: 05:59 mouth [place] 00 :00 every 12 Medical (twelve) Branch hours for 5 days. cefdinir 3-0 3- No [id number] 300mg Take 1 U nivers 300 mg 08-19- capsule by ity of capsule 00:00: 05:59 mouth [place] 00 :00 every 12 Medical (twelve) Branch hours for 5 days. cefdinir 3-0 3- No [id number] 300mg Take 1 U nivers 300 mg 08-19- capsule by ity of capsule 00:00: 05:59 mouth [place] 00 :00 every 12 Medical (twelve) Branch hours for 5 days. cefdinir 3-0 3- No [id number] 300mg Take 1 U nivers 300 mg 08-19- capsule by ity of capsule 00:00: 05:59 mouth [place] 00 :00 every 12 Medical (twelve) Branch hours for 5 days. cefdinir 2023-0 2023- No [id number] 300mg Take 1 U nivers 300 mg 08-19- capsule by ity of capsule 00:00: 05:59 mouth [place] 00 :00 every 12 Medical (twelve) Branch hours for 5 days. metoprolol 3-0 Yes 50mg Take 50 mg U nivers tartrate 50 08-14 by mouth ity of mg tablet 00:00: in the [place] morning Medical and 50 mg Branch in the evening. Take with meals. metoprolol 2023-0 Yes 50mg Take 50 mg U nivers tartrate 50 1-23 by mouth ity of mg tablet 00:00: in the [place] morning Medical and 50 mg Branch in the evening. Take with meals. metoprolol 2023-0 Yes 50mg Take 50 mg U nivers tartrate 50 1-23 by mouth ity of mg tablet 00:00: in the [place] morning Medical and 50 mg Branch in the evening. Take with meals. metoprolol 2023-0 Yes 50mg Take 50 mg U nivers tartrate 50 1-23 by mouth ity of mg tablet 00:00: in the [place] morning Medical and 50 mg Branch in the evening. Take with meals. metoprolol 2023-0 Yes 50mg Take 50 mg U nivers tartrate 50 1-23 by mouth ity of mg tablet 00:00: in the [place] morning Medical and 50 mg Branch in the evening. Take with meals. metoprolol 2023-0 Yes 50mg Take 50 mg U nivers tartrate 50 1-23 by mouth ity of mg tablet 00:00: in the [place] morning Medical and 50 mg Branch in the evening. Take with meals. metoprolol 2023-0 Yes 50mg Take 50 mg U nivers tartrate 50 1-23 by mouth ity of mg tablet 00:00: in the [place] morning Medical and 50 mg Branch in the evening. Take with meals. metoprolol 2023-0 Yes 50mg Take 50 mg U nivers tartrate 50 1-23 by mouth ity of mg tablet 00:00: in the [place] morning Medical and 50 mg Branch in the evening. Take with meals. metoprolol 2023-0 Yes 50mg Take 1 Unive rs tartrate 50 1-23 tablet by ity of mg tablet 00:00: mouth in [place] 00 the Medical morning Branch and 1 tablet in the evening. Take with meals. metoprolol 2023-0 Yes 50mg Take 1 Unive rs tartrate 50 1-23 tablet by ity of mg tablet 00:00: mouth in [place] 00 the Medical morning Branch and 1 tablet in the evening. Take with meals. metoprolol 2023-0 Yes 50mg Take 1 Unive rs tartrate 50 1-23 tablet by ity of mg tablet 00:00: mouth in [place] 00 the Medical morning Branch and 1 tablet in the evening. Take with meals. metoprolol 2023-0 Yes 50mg Take 1 Unive rs tartrate 50 1-23 tablet by ity of mg tablet 00:00: mouth in [place] 00 the Medical morning Branch and 1 tablet in the evening. Take with meals. metoprolol 2023-0 Yes 50mg Take 1 Unive rs tartrate 50 1-23 tablet by ity of mg tablet 00:00: mouth in [place] 00 the Medical morning Branch and 1 tablet in the evening. Take with meals. metoprolol 2023-0 Yes 50mg Take 1 Unive rs tartrate 50 1-23 tablet by ity of mg tablet 00:00: mouth in [place] 00 the Medical morning Branch and 1 tablet in the evening. Take with meals. metoprolol 2023-0 Yes 50mg Take 1 Unive rs tartrate 50 1-23 tablet by ity of mg tablet 00:00: mouth in [place] 00 the Medical morning Branch and 1 tablet in the evening. Take with meals. metoprolol 2023-0 Yes 50mg Take 1 Unive rs tartrate 50 1-23 tablet by ity of mg tablet 00:00: mouth in [place] 00 the Medical morning Branch and 1 tablet in the evening. Take with meals. metoprolol 2023-0 Yes 50mg Take 1 Unive rs tartrate 50 1-23 tablet by ity of mg tablet 00:00: mouth in [place] 00 the Medical morning Branch and 1 tablet in the evening. Take with meals. metoprolol 2023-0 Yes 50mg Take 1 Unive rs tartrate 50 1-23 tablet by ity of mg tablet 00:00: mouth in [place] 00 the Medical morning Branch and 1 tablet in the evening. Take with meals. metoprolol 2023-0 Yes 50mg Take 1 Unive rs tartrate 50 1-23 tablet by ity of mg tablet 00:00: mouth in [place] 00 the Medical morning Branch and 1 tablet in the evening. Take with meals. metoprolol 2023-0 Yes 50mg Take 1 Unive rs tartrate 50 1-23 tablet by ity of mg tablet 00:00: mouth in [place] 00 the Medical morning Branch and 1 tablet in the evening. Take with meals. metoprolol 2023-0 Yes 50mg Take 1 Unive rs tartrate 50 1-23 tablet by ity of mg tablet 00:00: mouth in [place] 00 the Medical morning Branch and 1 tablet in the evening. Take with meals. metoprolol 2023-0 Yes 50mg Take 1 Unive rs tartrate 50 1-23 tablet by ity of mg tablet 00:00: mouth in [place] 00 the Medical morning Branch and 1 tablet in the evening. Take with meals. metoprolol 2023-0 Yes 50mg Take 1 Unive rs tartrate 50 1-23 tablet by ity of mg tablet 00:00: mouth in [place] 00 the Medical morning Branch and 1 tablet in the evening. Take with meals. metoprolol 2023-0 Yes 50mg Take 1 Unive rs tartrate 50 1-23 tablet by ity of mg tablet 00:00: mouth in [place] 00 the Medical morning Branch and 1 tablet in the evening. Take with meals. metoprolol 2023-0 Yes 50mg Take 1 Unive rs tartrate 50 1-23 tablet by ity of mg tablet 00:00: mouth in [place] 00 the Medical morning Branch and 1 tablet in the evening. Take with meals. metoprolol 2023-0 Yes 50mg Take 1 Unive rs tartrate 50 1-23 tablet by ity of mg tablet 00:00: mouth in [place] 00 the Medical morning Branch and 1 tablet in the evening. Take with meals. metoprolol 2023-0 Yes 50mg Take 1 Unive rs tartrate 50 1-23 tablet by ity of mg tablet 00:00: mouth in [place] 00 the Medical morning Branch and 1 tablet in the evening. Take with meals. metoprolol 2023-0 Yes 50mg Take 1 Un[facility] rs tartrate 50 1-23 tablet by ity of mg tablet 00:00: mouth in [place] 00 the Medical morning Branch and 1 tablet in the evening. Take with meals. metoprolol 2023-0 Yes 50mg Take 1 Unive rs tartrate 50 1-23 tablet by ity of mg tablet 00:00: mouth in [place] 00 the Medical morning Branch and 1 tablet in the evening. Take with meals. metoprolol 2023-0 Yes 50mg Take 1 Unive rs tartrate 50 1-23 tablet by ity of mg tablet 00:00: mouth in [place] 00 the Medical morning Branch and 1 tablet in the evening. Take with meals. metoprolol 0 Yes 50mg Take 1 Unive rs tartrate 50 1-23 tablet by ity of mg tablet 00:00: mouth in [place] 00 the Medical morning Branch and 1 tablet in the evening. Take with meals. metFORMIN 2021-07 Yes 1000mg Take 1,000 [facility] (GLUCOPHAGE 2-21 mg by ity of ) 500 mg 17:05: mouth 2 [place] tablet 04 (two) Medical times Branch daily with meals. SEDRICK 2021-07 Yes 81mg Take 81 mg Univer s CHEWABLE 2-21 by mouth. ity of ASPIRIN 17:05: Indication [place] ORAL 04 s: takes 2 Medical per day Branch rosuvastati 2021-07 Yes 20mg Take 20 mg [facility] n 20 mg 2-21 by mouth ity of tablet 17:05: at [place] [address] bedtime. Medical Branch Cholecalcif 2021-07 Yes 2000U Take 2,000 [facility] jose, 2-21 Units by ity of Vitamin D3, 17:05: mouth. [place] 50 mcg 04 Medical (2,000 Branch unit) capsule metFORMIN 2021-07 Yes 1000mg Take 1,000 [facility] (GLUCOPHAGE 2-21 mg by ity of ) 500 mg 17:05: mouth 2 [place] tablet 04 (two) Medical times [place] daily with meals. SEDRICK 2021-07 Yes 81mg Take 81 mg Univer s CHEWABLE 2-21 by mouth. ity of ASPIRIN 17:05: Indication [place] ORAL 04 s: takes 2 Medical per day Branch rosuvastati 2021-07 Yes 20mg Take 20 mg [facility] n 20 mg 2-21 by mouth ity of tablet 17:05: at [place] [address] bedtime. Medical Branch Cholecalcif 2021-07 Yes 2000U Take 2,000 [facility] jose, 2-21 Units by ity of Vitamin D3, 17:05: mouth. [place] 50 mcg 04 Medical (2,000 Branch unit) capsule metFORMIN 2021-07 Yes 1000mg Take 1,000 [facility] (GLUCOPHAGE 2-21 mg by ity of ) 500 mg 17:05: mouth 2 [place] tablet 04 (two) Medical times [place] daily with meals. SEDRICK 2021-07 Yes 81mg Take 81 mg Univer s CHEWABLE 2-21 by mouth. ity of ASPIRIN 17:05: Indication [place] ORAL 04 s: takes 2 Medical per day Branch rosuvastati 2021-07 Yes 20mg Take 20 mg [facility] n 20 mg 2-21 by mouth ity of tablet 17:05: at [place] [address] bedtime. Medical Branch Cholecalcif 2021-07 Yes 2000U Take 2,000 [facility] jose, 2-21 Units by ity of Vitamin D3, 17:05: mouth. [place] 50 mcg 04 Medical (2,000 Branch unit) capsule metFORMIN 2021-07 Yes 1000mg Take 1,000 [facility] (GLUCOPHAGE 2-21 mg by ity of ) 500 mg 17:05: mouth 2 [place] tablet 04 (two) Medical times [place] daily with meals. SEDRICK 2021-07 Yes 81mg Take 81 mg Univer s CHEWABLE 2-21 by mouth. ity of ASPIRIN 17:05: Indication [place] ORAL 04 s: takes 2 Medical per day Branch rosuvastati 2021-07 Yes 20mg Take 20 mg [facility] n 20 mg 2-21 by mouth ity of tablet 17:05: at [place] [address] bedtime. Medical Branch Cholecalcif 2021-07 Yes 2000U Take 2,000 [facility] jose, 2-21 Units by ity of Vitamin D3, 17:05: mouth. [place] 50 mcg 04 Medical (2,000 Branch unit) capsule metFORMIN 2021-07 Yes 1000mg Take 1,000 [facility] (GLUCOPHAGE 2-21 mg by ity of ) 500 mg 17:05: mouth 2 [place] tablet 04 (two) Medical times [place] daily with meals. SEDRICK 2021-07 Yes 81mg Take 81 mg Univer s CHEWABLE 2-21 by mouth. ity of ASPIRIN 17:05: Indication [place] ORAL 04 s: takes 2 Medical per day Branch rosuvastati 2021-07 Yes 20mg Take 20 mg [facility] n 20 mg 2-21 by mouth ity of tablet 17:05: at [place] [address] bedtime. Medical Branch Cholecalcif 2021-07 Yes 2000U Take 2,000 [facility] jose, 2-21 Units by ity of Vitamin D3, 17:05: mouth. [place] 50 mcg 04 Medical (2,000 Branch unit) capsule metFORMIN 2021-07 Yes 1000mg Take 1,000 [facility] (GLUCOPHAGE 2-21 mg by ity of ) 500 mg 17:05: mouth 2 [place] tablet 04 (two) Medical times [place] daily with meals. SEDRICK 2021-07 Yes 81mg Take 81 mg Univer s CHEWABLE 2-21 by mouth. ity of ASPIRIN 17:05: Indication [place] ORAL 04 s: takes 2 Medical per day Branch rosuvastati 2021-07 Yes 20mg Take 20 mg Univers n 20 mg 2-21 by mouth ity of tablet 17:05: at [place] [address] bedtime. Medical Branch Cholecalcif 2021-07 Yes 2000U Take 2,000 [facility] jose, 2-21 Units by ity of Vitamin D3, 17:05: mouth. [place] 50 mcg 04 Medical (2,000 Branch unit) capsule metFORMIN 2021-07 Yes 1000mg Take 1,000 [facility] (GLUCOPHAGE 2-21 mg by ity of ) 500 mg 17:05: mouth 2 [place] tablet 04 (two) Medical times [place] daily with meals. SEDRICK 2021-07 Yes 81mg Take 81 mg Univer s CHEWABLE 2-21 by mouth. ity of ASPIRIN 17:05: Indication [place] ORAL 04 s: takes 2 Medical per day Branch rosuvastati 2021-07 Yes 20mg Take 20 mg Univers n 20 mg 2-21 by mouth ity of tablet 17:05: at [place] [address] bedtime. Medical Branch Cholecalcif 2021-07 Yes 2000U Take 2,000 [facility] jose, 2-21 Units by ity of Vitamin D3, 17:05: mouth. [place] 50 mcg 04 Medical (2,000 Branch unit) capsule sulfur 2021-07- No [id number] 5mL 5 mL, Univ ers hexafluorid 2- 12-21 Intravenou i ty of e microsphr 16:15: 16:15 s, ONCE, 1 [place] (LUMASON) 00 :00 dose, On Medica l injection 5 Wed Branch mL 07/12/22 at 1015, Routine
space studies faculty member approving Restricted medication : PARDEEP ACOSTA sulfur 2021-07- No [id number] 5mL 5 mL, Univ ers hexafluorid 2-21 12-21 Intravenou i ty of e microsphr 16:15: 16:15 s, ONCE, 1 [place] (LUMASON) 00 :00 dose, On Medica l injection 5 Sun Branch mL 07/12/22 at 1015, Routine
space studies faculty member approving Restricted medication : PARDEEP ACOSTA polyethylen 2021-07 Yes 17g 17 g, Unive rs e glycol 2-21 Oral, ity of 3350 powder 15:00: DAILY, [place] 17 g 00 First dose Medical on Sun Branch 07/12/22 at 0900, Until Discontinu ed, Routine lisinopriL 2021-07 Yes 5mg 5 mg, Univer s (PRINIVIL,Z 2-21 Oral, ity of ESTRIL) 15:00: DAILY, [place] tablet 5 mg 00 First dose Me dical on Sun Branch 07/12/22 at 0900, Until Discontinu ed, Routine isosorbide 2021-07 Yes 60mg 60 mg, Unive rs mononitrate 2- Oral, ity of (IMDUR) 24 15:00: DAILY, [place] hr tablet 00 First dose Medi angela 60 mg on Sun Branch 07/12/22 at 0900, Until Discontinu ed, Routine cholecalcif 2021-07 Yes 1000U 1,000 Univ ers jose 2-21 Units, ity of (vitamin 15:00: Oral, [place] D3) tablet 00 DAILY, Medical 1,000 Units First dose Br anch on Sun07/12/22 at 0900, Until Discontinu ed clopidogreL 2021-07 Yes 75mg 75 mg, Univ ers (PLAVIX) 75 2-21 Oral, ity of mg tablet 15:00: DAILY, [place] 75 mg 00 First dose Medical on Sun Branch 07/12/22 at 0900, Until Discontinu ed, Routine, CV Recovery to Floor
F aculty member approving Restricted medication : NAGA LAKHANI aspirin 2021-07 Yes 81mg 81 mg, Univers chewable 2-21 Oral, ity of tablet 81 15:00: DAILY, [place] mg 00 First dose Medical on Wed Branch 07/12/22 at 0900, Until Discontinu ed, Routine, CV Recovery to Floor polyethylen 2021-07 17g 17 g, Univ ers e glycol 2-21 07-13 Oral, ity of 3350 powder 15:00: 01:05 DAILY, [place] 17 g 00 :07 First dose Medical on Sun Branch 07/12/22 at 0900, Until Discontinu ed, Routine lisinopriL 2021-07 No 5mg 5 mg, Unive rs (PRINIVIL,Z 09-12 Oral, ity of ESTRIL) 15:00: 01:05 DAILY, [place] tablet 5 mg 00 :07 First dose Me dical on Sun07/12/22 at 0900, Until Discontinu ed, Routine isosorbide 2021-07 No 60mg 60 mg, Univ ers mononitrate 09-12 Oral, ity of (IMDUR) 24 15:00: 01:05 DAILY, [place] tablet 00 :07 First dose Medi angela 60 mg on Sun07/12/22 at 0900, Until Discontinu ed, Routine cholecalcif 2021-07 1000U 1,000 Uni vers jose 09-12 Units, ity of (vitamin 15:00: 01:05 Oral, [place] D3) tablet 00 :07 DAILY, Medical 1,000 Units First dose Br anch on Sun07/12/22 at 0900, Until Discontinu ed clopidogreL 2021-07 No 75mg 75 mg, Uni vers (PLAVIX) 75 09-12 Oral, ity of mg tablet 15:00: 01:05 DAILY, [place] 75 mg 00 :07 First dose Medical on Sun [place] 07/12/22 at 0900, Until Discontinu ed, Routine, CV Recovery to Floor
F aculty member approving Restricted medication : NAGA LAKHANI aspirin 2021-07 No 81mg 81 mg, Univers chewable 09-12 Oral, ity of tablet 81 15:00: 01:05 DAILY, [place] mg 00 :07 First dose Medical on Sun [place] 07/12/22 at 0900, Until Discontinu ed, Routine, CV Recovery to Floor rosuvastati 2021-07 Yes 20mg 20 mg, Univ ers n (CRESTOR) 09-12 Oral, QHS, it y of tablet 20 03:00: First dose [place] [facility] Branch at 2100, Until Discontinu ed, Routine rosuvastati 2021-07 No 20mg 20 mg, Uni vers n (CRESTOR) 2-12 07- Oral, QHS, i ty of tablet 20 03:00: 01:05 First dose [place] mg 00 :07 on [facility] 07/11/22 Branch at 2100, Until Discontinu ed, Routine heparin 2021-07 Yes 5000U 5,000 Univers (porcine) 2-21 Units, ity of injection 02:00: Subcut[place]o [place] 5,000 Units 00 us, Q12H, Med ical First dose Branch on [facility] 07/11/22 at 2000, Until Discontinu ed, Routine metoprolol 2021-07 Yes 25mg 25 mg, Unive rs tartrate 2-21 Oral, BID, ity o f (LOPRESSOR) 02:00: First dose [place] tablet 25 00 on [facility] Medical 07/11/22 Branch at 2000, Until Discontinu ed, Routine heparin 2021-07 No 5000U 5,000 Univers (porcine) -12 07- Units, ity of injection 02:00: 01:05 [place]cut[place]o [place] 5,000 Units 00 :07 us, Q12H, Med ical First dose Branch on [facility] 07/11/22 at 2000, Until Discontinu ed, Routine metoprolol 2021-07- No 25mg 25 mg, Univ ers tartrate -12 07- Oral, BID, ity of (LOPRESSOR) 02:00: 01:05 First dose [place] tablet 25 00 :07 on [facility] Medical mg 07/11/22 Branch at 2000, Until Discontinu ed, Routine clopidogreL 2021-07- No [id number] 75mg Take 1 Univers 75 mg 2-21 12-22 tablet by ity of tablet 00:00: 05:59 mouth in [place] 00 :00 the Medical morning. Branch clopidogreL 2021-07- No [id number] 75mg Take 1 [facility] 75 mg 2-21 12-22 tablet by ity of tablet 00:00: 05:59 mouth in [place] 00 :00 the Medical morning. Branch clopidogreL 2021-07- No [id number] 75mg Take 1 [facility] 75 mg 2-21 12-22 tablet by ity of tablet 00:00: 05:59 mouth in [place] 00 :00 the Medical morning. Branch clopidogreL 2021-07- No [id number] 75mg Take 1 [facility] 75 mg 2-21 12-22 tablet by ity of tablet 00:00: 05:59 mouth in [place] 00 :00 the Medical morning. Branch clopidogreL 2021-2022- No [id number] 75mg Take 1 [facility] 75 mg 2-21 12-22 tablet by ity of tablet 00:00: 05:59 mouth in [place] 00 :00 the Medical morning. Branch clopidogreL 2021-2022- No [id number] 75mg Take 1 [facility] 75 mg 2-21 12-22 tablet by ity of tablet 00:00: 05:59 mouth in [place] 00 :00 the Medical morning. Branch clopidogreL 2021-2022- No [id number] 75mg Take 1 [facility] 75 mg 2-21 12-22 tablet by ity of tablet 00:00: 05:59 mouth in [place] 00 :00 the Medical morning. Branch clopidogreL 2021-2022- No [id number] 75mg Take 1 [facility] 75 mg 2-21 12-22 tablet by ity of tablet 00:00: 05:59 mouth in [place] 00 :00 the Medical morning. Branch clopidogreL 2021-2022- No [id number] 75mg Take 1 [facility] 75 mg 2-21 12-22 tablet by ity of tablet 00:00: 05:59 mouth in [place] 00 :00 the Medical morning. Branch clopidogreL 2021-2022- No [id number] 75mg Take 1 [facility] 75 mg 2-21 12-22 tablet by ity of tablet 00:00: 05:59 mouth in [place] 00 :00 the Medical morning. Branch clopidogreL 2021-2022- No [id number] 75mg Take 1 [facility] 75 mg 2-21 12-22 tablet by ity of tablet 00:00: 05:59 mouth in [place] 00 :00 the Medical morning. Branch clopidogreL 2021-2022- No [id number] 75mg Take 1 [facility] 75 mg 2-21 12-22 tablet by ity of tablet 00:00: 05:59 mouth in [place] 00 :00 the Medical morning. Branch clopidogreL 2021-3- No [id number] 75mg Take 1 [facility] 75 mg 2-21 12-22 tablet by ity of tablet 00:00: 05:59 mouth in [place] 00 :00 the Medical morning. Branch clopidogreL 2021-2022- No [id number] 75mg Take 1 [facility] 75 mg 2-21 12-22 tablet by ity of tablet 00:00: 05:59 mouth in [place] 00 :00 the Medical morning. [place] clopidogreL 2021-07- No [id number] 75mg Take 1 [facility] 75 mg 2-21 12-22 tablet by ity of tablet 00:00: 05:59 mouth in [place] 00 :00 the Medical morning. [place] clopidogreL 2021-07- No [id number] 75mg Take 1 [facility] 75 mg 2-21 12-22 tablet by ity of tablet 00:00: 05:59 mouth in [place] 00 :00 the Medical morning. [place] clopidogreL 2021-07- No [id number] 75mg Take 1 [facility] 75 mg 2-21 12-22 tablet by ity of tablet 00:00: 05:59 mouth in [place] 00 :00 the Medical morning. [place] clopidogreL 2021-07- No [id number] 75mg Take 1 [facility] 75 mg 2-21 12-22 tablet by ity of tablet 00:00: 05:59 mouth in [place] 00 :00 the Medical morning. [place] clopidogreL 2021-07- No [id number] 75mg Take 1 [facility] 75 mg 2-21 12-22 tablet by ity of tablet 00:00: 05:59 mouth in [place] 00 :00 the Medical morning. [place] clopidogreL 2021-07- No [id number] 75mg Take 1 [facility] 75 mg 2-21 05-23 tablet by ity of tablet 00:00: 00:00 mouth in [place] 00 :00 the Medical morning. [place] clopidogreL 2021-07- No [id number] 75mg Take 1 [facility] 75 mg 2-21 05-23 tablet by ity of tablet 00:00: 00:00 mouth in [place] 00 :00 the Medical morning. [place] Sliding 2021-07 Yes Subcutaneo Univ ers Scale 2-20 us, TID ity of Insulin - 23:00: MEALS+HS, [place] Lispro 00 First dose Medical (HumaLOG) + on Sun [place] [facility] 07/11/22 Testing at 1700, Until Discontinu ed, Routine Sliding 2021-07- No Subcutaneo Uni vers Scale 2-20 12-22 us, TID ity of Insulin - 23:00: 01:05 MEALS+HS, [place] Lispro 00 :07 First dose Medical (HumaLOG) + on [facility] 07/11/22 Testing at 1700, Until Discontinu ed, Routine acetaminoph 2021-07 Yes 650mg 650 mg, Un anita en 09-11 Oral, ity of (TYLENOL) 21:06: Q6HPRN, [place] tablet 650 19 Starting Medic al mg on [facility] 07/11/22 at 1506, Until Discontinu ed, Routine, Pain (scale 1-3) acetaminoph 2021-07- No 650mg 650 mg, U nivers en 09-11 Oral, ity of (TYLENOL) 21:06: 01:05 Q6HPRN, [place] tablet 650 19 :07 Starting Medic al mg on [facility] 07/11/22 at 1506, Until 07/12/22 at 1905, Routine, Pain (scale 1-3) iodixanol 2021-07- No ONCE INTRA U nivers (VISIPAQUE 09-11 PROCEDURE, it y of 320-100 mL) 16:36: 16:56 [place] injection 10 :02 on [facility] 07/11/22 Branch at 1036, Until Sun07/11/22 at 1056, Routine, CV Intraproce dure adenosine 6 2021-07- No ONCE INTRA Univers mg/1000 mL 09-11 PROCEDURE, it y of INTRACORONA 16:19: 16:56 [place] RY 49 :02 on [facility] injection 07/11/22 Branch for CATH at 1019, LAB Until Sun07/11/22 at 1056, Routine, CV Intraproce dure nitroglycer 2021-07- No ONCE INTRA Univers in (TRIDIL) 09-11 PROCEDURE, i ty of 2 mg in 10 15:17: 16:56 [place] mL D5W for 44 :02 on [facility] Cardiac 07/11/22 Branch Cath at 0917, Until Sun07/11/22 at 1056, Routine, CV Intraproce dure heparin 2021-07- No ONCE INTRA Uni vers 1,000 09-11 PROCEDURE, ity of unit/mL 15:17: 16:56 Starting [place] injection 31 :02 on [facility] 07/11/22 Branch at 0917, Until [facility] 07/11/22 at 1056, Routine, CV Intraproce dure lidocaine 2021-07 No ONCE INTRA U nivers 1% (PF) 2-11 07-20 PROCEDURE, ity o f (XYLOCAINE) 15:11: 16:56 [place] injection 54 :02 on [facility] 07/11/22 Branch at 0911, Until [facility] 07/11/22 at 1056, Routine, CV Intraproce dure ezetimibe-s 2021-07 1{tbl} Take 1 Tab Univers imvastatin 2-20 12-20 by mouth ity of 10- 10-20 15:09: 00:00 at [place] mg tablet 09 :00 bedtime. Medica l Branch ferrous 2021-07 1 tablet Unive rs sulfate 325 2-20 12-20 ity of mg (65 mg 15:09: 00:00 [place] iron) EC 09 :00 Medical tablet Branch ezetimibe-s 2021-07 No 1{tbl} Take 1 Tab [facility] imvastatin 2-20 12-20 by mouth ity of 10- 10-20 15:09: 00:00 at [place] mg tablet 09 :00 bedtime. Medica l Branch ferrous 2021-07 1 tablet Unive rs sulfate 325 2-20 12-20 ity of mg (65 mg 15:09: 00:00 [place] iron) EC 09 :00 Medical tablet Branch clopidogreL 2021-07 600mg 600 mg, U nivers (PLAVIX) 2- 12-20 Oral, ity of 300 mg 15:00: 15:00 ONCE, 1 [place] tablet 600 00 :00 dose, On Medic al mg [facility] 07/11/22 at 0900, Routine clopidogreL 2021-07 600mg 600 mg, U nivers (PLAVIX) 2-20 12-20 Oral, ity of 300 mg 15:00: 15:00 ONCE, 1 [place] tablet 600 00 :00 dose, On Medic al mg [facility] 07/11/22 at 0900, Routine midazolam 2021-07 No ONCE INTRA U nivers (VERSED) 2-20 12-20 PROCEDURE, ity of injection 14:58: 16:56 Starting [place] 51 :02 on [facility] 07/11/22 Branch at 0858, Until [facility] 07/11/22 at 1056, Routine, CV Intraproce dure FENTanyl PF 2021-07- No ONCE INTRA Univers (SUBLIMAZE 09-11 PROCEDURE, it y of (PF)) 14:58: 16:56 Starting [place] injection 44 :02 on [facility] 07/11/22 Branch at 0858, Until 07/11/22 at 1056, Routine, CV Intraproce dure isosorbide 2021-07 Yes [id number] 60mg Take 1 [facility] mononitrate 2-05 tablet by ity of 60 mg 24 hr 00:00: mouth in [place] tablet 00 the Medical morning. Branch isosorbide 2021-07 Yes [id number] 60mg Take 1 [facility] mononitrate 2-05 tablet by ity of 60 mg 24 hr 00:00: mouth in [place] tablet 00 the Medical morning. Branch isosorbide 2021-07 Yes [id number] 60mg Take 1 [facility] mononitrate 2-05 tablet by ity of 60 mg 24 hr 00:00: mouth in [place] tablet 00 the Medical morning. Branch isosorbide 2021-07 Yes [id number] 60mg Take 1 [facility] mononitrate 2-05 tablet by ity of 60 mg 24 hr 00:00: mouth in [place] tablet 00 the Medical morning. Branch isosorbide 2021-07 Yes [id number] 60mg Take 1 [facility] mononitrate 2-05 tablet by ity of 60 mg 24 hr 00:00: mouth in [place] tablet 00 the Medical morning. Branch isosorbide 2021-07 Yes [id number] 60mg Take 1 [facility] mononitrate 2-05 tablet by ity of 60 mg 24 hr 00:00: mouth in [place] tablet 00 the Medical morning. Branch isosorbide 2021-07 Yes [id number] 60mg Take 1 [facility] mononitrate 2-05 tablet by ity of 60 mg 24 hr 00:00: mouth in [place] tablet 00 the Medical morning. Branch isosorbide 2021-07 Yes [id number] 60mg Take 1 [facility] mononitrate 2-05 tablet by ity of 60 mg 24 hr 00:00: mouth in [place] tablet 00 the Medical morning. Branch isosorbide 2021-07 Yes [id number] 60mg Take 1 [facility] mononitrate 2-05 tablet by ity of 60 mg 24 hr 00:00: mouth in [place] tablet 00 the Medical morning. Branch isosorbide 2021-07 Yes [id number] 60mg Take 1 [facility] mononitrate 2-05 tablet by ity of 60 mg 24 hr 00:00: mouth in [place] tablet 00 the Medical morning. Branch isosorbide 2021-07 Yes [id number] 60mg Take 1 [facility] mononitrate 2-05 tablet by ity of 60 mg 24 hr 00:00: mouth in [place] tablet 00 the Medical morning. Branch isosorbide 2021-07 Yes [id number] 60mg Take 1 [facility] mononitrate 2-05 tablet by ity of 60 mg 24 hr 00:00: mouth in [place] tablet 00 the Medical morning. Branch isosorbide 2021-07- No [id number] 60mg Take 1 [facility] mononitrate 2-05 02-02 tablet by it y of 60 mg 24 hr 00:00: 00:00 mouth in [place] tablet 00 :00 the Medical morning. Branch isosorbide 2021-07- No [id number] 60mg Take 1 [facility] mononitrate 2-05 02-02 tablet by it y of 60 mg 24 hr 00:00: 00:00 mouth in [place] tablet 00 :00 the Medical morning. Branch isosorbide 2021-07- No [id number] 60mg Take 1 [facility] mononitrate 2-05 02-02 tablet by it y of 60 mg 24 hr 00:00: 00:00 mouth in [place] tablet 00 :00 the Medical morning. [place] iopamidol 2021- No ONCE INTRA U nivers (ISOVUE 04-18 PROCEDURE, ity o f 370-500 mL) 14:16: 14:23 [place] injection 56 :24 on [facility] 04/18/22 at Branch 0916, Until Sun04/18/22 at 0923, Routine, CV Intraproce dure hydralAZINE 2022-0 2022- No ONCE INTRA Univers (APRESOLINE 04-18 PROCEDURE, i ty of ) injection 13:43: 14:23 Starting [place] 08 :24 on [facility] 04/18/22 at Branch 0843, Until Sun04/18/22 at 0923, STAT, CV Intraproce dure lidocaine 2021- No ONCE INTRA U nivers 1% (PF) 04-18 PROCEDURE, ity o f (XYLOCAINE) 12:59: 14:23 Starting [place] injection 54 :24 on [facility] 04/18/22 at Branch 0759, Until e 04/18/22 at 0923, Routine, CV Intraproce dure midazolam 2021- No ONCE INTRA U nivers (VERSED) 04-18 PROCEDURE, ity of injection 12:50: 14:23 Starting [place] 51 :24 on [facility] 04/18/22 at Branch 0750, Until e 04/18/22 at 0923, Routine, CV Intraproce dure FENTanyl PF 2021- No ONCE INTRA Univers (SUBLIMAZE 04-18 PROCEDURE, it y of (PF)) 12:50: 14:23 Starting [place] injection 38 :24 on [facility] 04/18/22 at Branch 0750, Until Sun04/18/22 at 0923, Routine, CV Intraproce dure ezetimibe-s Yes 1{tbl} Take 1 Tab [facility] imvastatin 04-18 by mouth ity o f 10-20 1020 12:18: at [place] mg tablet 45 bedtime. Medica l [place] metFORMIN Yes 1000mg Take 1,000 Univers (GLUCOPHAGE - mg by ity of ) 500 mg 12:18: mouth 2 [place] tablet 45 (two) Medical times [place] daily with meals. SEDRICK Yes 81mg Take 81 mg Univer s CHEWABLE 04-18 by mouth. ity of ASPIRIN 12:18: Indication [place] ORAL 45 s: takes 2 Medical per day [place] rosuvastati Yes 20mg Take 20 mg Univers n 20 mg 04-18 by mouth ity of tablet 12:18: at [place] 45 bedtime. Medical Branch Cholecalcif Yes 2000U Take 2,000 Univers jose, 9-27 Units by ity of Vitamin D3, 12:18: mouth. [place] 50 mcg 45 Medical (2,000 Branch unit) capsule ferrous Yes 1 tablet Univer s sulfate 325 9-27 ity of mg (65 mg 12:18: [place] iron) EC 45 Medical tablet Branch ezetimibe-s Yes 1{tbl} Take 1 Tab [facility] imvastatin 9-27 by mouth ity o f 05-11 12:18: at [place] mg tablet 45 bedtime. Medica l Branch metFORMIN Yes 1000mg Take 1,000 Univers (GLUCOPHAGE 9-27 mg by ity of ) 500 mg 12:18: mouth 2 [place] tablet 45 (two) Medical times Branch daily with meals. SEDRICK Yes 81mg Take 81 mg Univer s CHEWABLE 9-27 by mouth. ity of ASPIRIN 12:18: Indication [place] ORAL 45 s: takes 2 Medical per day Branch rosuvastati Yes 20mg Take 20 mg Univers n 20 mg 9-27 by mouth ity of tablet 12:18: at [place] 45 bedtime. Medical Branch Cholecalcif Yes 2000U Take 2,000 Univers jose, 9-27 Units by ity of Vitamin D3, 12:18: mouth. [place] 50 mcg 45 Medical (2,000 Branch unit) capsule ferrous Yes 1 tablet Univer s sulfate 325 9-27 ity of mg (65 mg 12:18: [place] iron) EC 45 Medical tablet Branch ezetimibe-s Yes 1{tbl} Take 1 Tab [facility] imvastatin 9-27 by mouth ity o f 05-11 12:18: at [place] mg tablet 45 bedtime. Medica l Branch metFORMIN Yes 1000mg Take 1,000 Univers (GLUCOPHAGE 9-27 mg by ity of ) 500 mg 12:18: mouth 2 [place] tablet 45 (two) Medical times Branch daily with meals. SEDRICK Yes 81mg Take 81 mg Univer s CHEWABLE 9-27 by mouth. ity of ASPIRIN 12:18: Indication [place] ORAL 45 s: takes 2 Medical per day Branch rosuvastati Yes 20mg Take 20 mg Univers n 20 mg 9-27 by mouth ity of tablet 12:18: at [place] 45 bedtime. Medical Branch Cholecalcif Yes 2000U Take 2,000 Univers jose, 9-27 Units by ity of Vitamin D3, 12:18: mouth. [place] 50 mcg 45 Medical (2,000 Branch unit) capsule ferrous Yes 1 tablet Univer s sulfate 325 9-27 ity of mg (65 mg 12:18: [place] iron) EC 45 Medical tablet Branch ezetimibe-s Yes 1{tbl} Take 1 Tab [facility] imvastatin 9-27 by mouth ity o f 1005-11 12:18: at [place] mg tablet 45 bedtime. Medica l Branch metFORMIN Yes 1000mg Take 1,000 Univers (GLUCOPHAGE 9-27 mg by ity of ) 500 mg 12:18: mouth 2 [place] tablet 45 (two) Medical times Branch daily with meals. SEDRICK Yes 81mg Take 81 mg Univer s CHEWABLE 9-27 by mouth. ity of ASPIRIN 12:18: Indication [place] ORAL 45 s: takes 2 Medical per day Branch rosuvastati Yes 20mg Take 20 mg Univers n 20 mg 9-27 by mouth ity of tablet 12:18: at [place] 45 bedtime. Medical Branch Cholecalcif Yes 2000U Take 2,000 Univers jose, 9-27 Units by ity of Vitamin D3, 12:18: mouth. [place] 50 mcg 45 Medical (2,000 Branch unit) capsule ferrous Yes 1 tablet Univer s sulfate 325 9-27 ity of mg (65 mg 12:18: [place] iron) EC 45 Medical tablet Branch ezetimibe-s Yes 1{tbl} Take 1 Tab Univers imvastatin 9-27 by mouth ity o f 1005-11 12:18: at [place] mg tablet 45 bedtime. Medica l Branch metFORMIN Yes 1000mg Take 1,000 Univers (GLUCOPHAGE 9-27 mg by ity of ) 500 mg 12:18: mouth 2 [place] tablet 45 (two) Medical times Branch daily with meals. SEDRICK Yes 81mg Take 81 mg Univer s CHEWABLE 9-27 by mouth. ity of ASPIRIN 12:18: Indication [place] ORAL 45 s: takes 2 Medical per day Branch rosuvastati Yes 20mg Take 20 mg Univers n 20 mg 9-27 by mouth ity of tablet 12:18: at [place] 45 bedtime. Medical Branch Cholecalcif Yes 2000U Take 2,000 Univers jose, 9-27 Units by ity of Vitamin D3, 12:18: mouth. [place] 50 mcg 45 Medical (2,000 Branch unit) capsule ferrous Yes 1 tablet Univer s sulfate 325 9-27 ity of mg (65 mg 12:18: [place] iron) EC 45 Medical tablet Branch ezetimibe-s Yes 1{tbl} Take 1 Tab [facility] imvastatin 9-27 by mouth ity o f 05-11 12:18: at [place] mg tablet 45 bedtime. Medica l Branch metFORMIN Yes 1000mg Take 1,000 Univers (GLUCOPHAGE 9-27 mg by ity of ) 500 mg 12:18: mouth 2 [place] tablet 45 (two) Medical times Branch daily with meals. SEDRICK Yes 81mg Take 81 mg Univer s CHEWABLE 9-27 by mouth. ity of ASPIRIN 12:18: Indication [place] ORAL 45 s: takes 2 Medical per day Branch rosuvastati Yes 20mg Take 20 mg Univers n 20 mg 9-27 by mouth ity of tablet 12:18: at [place] 45 bedtime. Medical Branch Cholecalcif Yes 2000U Take 2,000 Univers jose, 9-27 Units by ity of Vitamin D3, 12:18: mouth. [place] 50 mcg 45 Medical (2,000 Branch unit) capsule ferrous Yes 1 tablet Univer s sulfate 325 9-27 ity of mg (65 mg 12:18: [place] iron) EC 45 Medical tablet Branch ezetimibe-s Yes 1{tbl} Take 1 Tab Univers imvastatin 9-27 by mouth ity o f -05-11 12:18: at [place] mg tablet 45 bedtime. Medica l Branch metFORMIN Yes 1000mg Take 1,000 Univers (GLUCOPHAGE 9-27 mg by ity of ) 500 mg 12:18: mouth 2 [place] tablet 45 (two) Medical times Branch daily with meals. SEDRICK Yes 81mg Take 81 mg Univer s CHEWABLE 9-27 by mouth. ity of ASPIRIN 12:18: Indication [place] ORAL 45 s: takes 2 Medical per day Branch rosuvastati Yes 20mg Take 20 mg Univers n 20 mg 9-27 by mouth ity of tablet 12:18: at [place] 45 bedtime. Medical Branch Cholecalcif Yes 2000U Take 2,000 Univers jose, 9-27 Units by ity of Vitamin D3, 12:18: mouth. [place] 50 mcg 45 Medical (2,000 Branch unit) capsule ferrous Yes 1 tablet Univer s sulfate 325 9-27 ity of mg (65 mg 12:18: [place] iron) EC 45 Medical tablet Branch ezetimibe-s Yes 1{tbl} Take 1 Tab Univers imvastatin 9-27 by mouth ity o f 10- 1020 12:18: at [place] mg tablet 45 bedtime. Medica l Branch metFORMIN Yes 1000mg Take 1,000 Univers (GLUCOPHAGE 9-27 mg by ity of ) 500 mg 12:18: mouth 2 [place] tablet 45 (two) Medical times Branch daily with meals. SEDRICK Yes 81mg Take 81 mg Univer s CHEWABLE 9-27 by mouth. ity of ASPIRIN 12:18: Indication [place] ORAL 45 s: takes 2 Medical per day Branch rosuvastati Yes 20mg Take 20 mg Univers n 20 mg 9-27 by mouth ity of tablet 12:18: at [place] 45 bedtime. Medical Branch Cholecalcif Yes 2000U Take 2,000 Univers jose, 9-27 Units by ity of Vitamin D3, 12:18: mouth. [place] 50 mcg 45 Medical (2,000 Branch unit) capsule ferrous Yes 1 tablet Univer s sulfate 325 9-27 ity of mg (65 mg 12:18: [place] iron) EC 45 Medical tablet Branch ezetimibe-s Yes 1{tbl} Take 1 Tab Univers imvastatin 9-27 by mouth ity o f 10-20 10-20 12:18: at [place] mg tablet 45 bedtime. Medica l Branch metFORMIN Yes 1000mg Take 1,000 Univers (GLUCOPHAGE 9-27 mg by ity of ) 500 mg 12:18: mouth 2 [place] tablet 45 (two) Medical times Branch daily with meals. SEDRICK Yes 81mg Take 81 mg Univer s CHEWABLE 9-27 by mouth. ity of ASPIRIN 12:18: Indication [place] ORAL 45 s: takes 2 Medical per day Branch rosuvastati Yes 20mg Take 20 mg Univers n 20 mg 9-27 by mouth ity of tablet 12:18: at [place] 45 bedtime. Medical Branch Cholecalcif Yes 2000U Take 2,000 Univers jose, 9-27 Units by ity of Vitamin D3, 12:18: mouth. [place] 50 mcg 45 Medical (2,000 Branch unit) capsule ferrous Yes 1 tablet Univer s sulfate 325 9-27 ity of mg (65 mg 12:18: [place] iron) EC 45 Medical tablet Branch ezetimibe-s Yes 1{tbl} Take 1 Tab [facility] imvastatin 9-27 by mouth ity o f 10-20 10-20 12:18: at [place] mg tablet 45 bedtime. Medica l Branch metFORMIN Yes 1000mg Take 1,000 Univers (GLUCOPHAGE 9-27 mg by ity of ) 500 mg 12:18: mouth 2 [place] tablet 45 (two) Medical times Branch daily with meals. SEDRICK Yes 81mg Take 81 mg Univer s CHEWABLE 9-27 by mouth. ity of ASPIRIN 12:18: Indication [place] ORAL 45 s: takes 2 Medical per day Branch rosuvastati Yes 20mg Take 20 mg Univers n 20 mg 9-27 by mouth ity of tablet 12:18: at [place] 45 bedtime. Medical Branch Cholecalcif Yes 2000U Take 2,000 [facility] jose, 9-27 Units by ity of Vitamin D3, 12:18: mouth. [place] 50 mcg 45 Medical (2,000 Branch unit) capsule ferrous Yes 1 tablet Univer s sulfate 325 9-27 ity of mg (65 mg 12:18: [place] iron) EC 45 Medical tablet Branch ezetimibe-s Yes 1{tbl} Take 1 Tab [facility] imvastatin 9-27 by mouth ity o f 1005-11 12:18: at [place] mg tablet 45 bedtime. Medica l Branch metFORMIN Yes 1000mg Take 1,000 Univers (GLUCOPHAGE 9-27 mg by ity of ) 500 mg 12:18: mouth 2 [place] tablet 45 (two) Medical times Branch daily with meals. SEDRICK Yes 81mg Take 81 mg Univer s CHEWABLE 9-27 by mouth. ity of ASPIRIN 12:18: Indication [place] ORAL 45 s: takes 2 Medical per day Branch rosuvastati Yes 20mg Take 20 mg Univers n 20 mg 9-27 by mouth ity of tablet 12:18: at [place] 45 bedtime. Medical Branch Cholecalcif Yes 2000U Take 2,000 [facility] jose, 9-27 Units by ity of Vitamin D3, 12:18: mouth. [place] 50 mcg 45 Medical (2,000 Branch unit) capsule ferrous Yes 1 tablet Univer s sulfate 325 9-27 ity of mg (65 mg 12:18: [place] iron) EC 45 Medical tablet Branch ezetimibe-s Yes 1{tbl} Take 1 Tab [facility] imvastatin 9-27 by mouth ity o f 05-11 12:18: at [place] mg tablet 45 bedtime. Medica l Branch metFORMIN Yes 1000mg Take 1,000 Univers (GLUCOPHAGE 9-27 mg by ity of ) 500 mg 12:18: mouth 2 [place] tablet 45 (two) Medical times Branch daily with meals. SEDRICK Yes 81mg Take 81 mg Univer s CHEWABLE 9-27 by mouth. ity of ASPIRIN 12:18: Indication [place] ORAL 45 s: takes 2 Medical per day Branch rosuvastati Yes 20mg Take 20 mg Univers n 20 mg 9-27 by mouth ity of tablet 12:18: at [place] 45 bedtime. Medical Branch Cholecalcif Yes 2000U Take 2,000 [facility] jose, 9-27 Units by ity of Vitamin D3, 12:18: mouth. [place] 50 mcg 45 Medical (2,000 Branch unit) capsule ezetimibe-s Yes 1{tbl} Take 1 Tab [facility] imvastatin 9-27 by mouth ity o f 10-05-11 12:18: at [place] mg tablet 45 bedtime. Medica l Branch metFORMIN Yes 1000mg Take 1,000 Univers (GLUCOPHAGE 9-27 mg by ity of ) 500 mg 12:18: mouth 2 [place] tablet 45 (two) Medical times Branch daily with meals. SEDRICK Yes 81mg Take 81 mg Univer s CHEWABLE 9-27 by mouth. ity of ASPIRIN 12:18: Indication [place] ORAL 45 s: takes 2 Medical per day Branch rosuvastati Yes 20mg Take 20 mg Univers n 20 mg 9-27 by mouth ity of tablet 12:18: at [place] 45 bedtime. Medical Branch Cholecalcif Yes 2000U Take 2,000 Univers jose, 9-27 Units by ity of Vitamin D3, 12:18: mouth. [place] 50 mcg 45 Medical (2,000 Branch unit) capsule ferrous Yes 1 tablet Univer s sulfate 325 9-27 ity of mg (65 mg 12:18: [place] iron) EC 45 Medical tablet Branch ezetimibe-s Yes 1{tbl} Take 1 Tab [facility] imvastatin 9-27 by mouth ity o f 05-11 12:18: at [place] mg tablet 45 bedtime. Medica l Branch metFORMIN Yes 1000mg Take 1,000 Univers (GLUCOPHAGE 9-27 mg by ity of ) 500 mg 12:18: mouth 2 [place] tablet 45 (two) Medical times Branch daily with meals. SEDRICK Yes 81mg Take 81 mg Univer s CHEWABLE 9-27 by mouth. ity of ASPIRIN 12:18: Indication [place] ORAL 45 s: takes 2 Medical per day Branch rosuvastati Yes 20mg Take 20 mg Univers n 20 mg 9-27 by mouth ity of tablet 12:18: at [place] 45 bedtime. Medical Branch Cholecalcif Yes 2000U Take 2,000 Univers jose, 9-27 Units by ity of Vitamin D3, 12:18: mouth. [place] 50 mcg 45 Medical (2,000 Branch unit) capsule ferrous Yes 1 tablet Univer s sulfate 325 9-27 ity of mg (65 mg 12:18: [place] iron) EC 45 Medical tablet Branch ezetimibe-s Yes 1{tbl} Take 1 Tab [facility] imvastatin 9-27 by mouth ity o f 05-11 12:18: at [place] mg tablet 45 bedtime. Medica l Branch metFORMIN Yes 1000mg Take 1,000 Univers (GLUCOPHAGE 9-27 mg by ity of ) 500 mg 12:18: mouth 2 [place] tablet 45 (two) Medical times Branch daily with meals. SEDRICK Yes 81mg Take 81 mg Univer s CHEWABLE 9-27 by mouth. ity of ASPIRIN 12:18: Indication [place] ORAL 45 s: takes 2 Medical per day Branch rosuvastati Yes 20mg Take 20 mg Univers n 20 mg 9-27 by mouth ity of tablet 12:18: at [place] 45 bedtime. Medical Branch Cholecalcif Yes 2000U Take 2,000 Univers jose, 9-27 Units by ity of Vitamin D3, 12:18: mouth. [place] 50 mcg 45 Medical (2,000 Branch unit) capsule ferrous Yes 1 tablet Univer s sulfate 325 9-27 ity of mg (65 mg 12:18: [place] iron) EC 45 Medical tablet Branch ezetimibe-s Yes 1{tbl} Take 1 Tab [facility] imvastatin 9-27 by mouth ity o f 05-11 12:18: at [place] mg tablet 45 bedtime. Medica l Branch metFORMIN Yes 1000mg Take 1,000 Univers (GLUCOPHAGE 9-27 mg by ity of ) 500 mg 12:18: mouth 2 [place] tablet 45 (two) Medical times Branch daily with meals. SEDRICK Yes 81mg Take 81 mg Univer s CHEWABLE 9-27 by mouth. ity of ASPIRIN 12:18: Indication [place] ORAL 45 s: takes 2 Medical per day Branch rosuvastati Yes 20mg Take 20 mg Univers n 20 mg 9-27 by mouth ity of tablet 12:18: at [place] 45 bedtime. Medical Branch Cholecalcif Yes 2000U Take 2,000 [facility] jose, 9-27 Units by ity of Vitamin D3, 12:18: mouth. [place] 50 mcg 45 Medical (2,000 Branch unit) capsule ferrous Yes 1 tablet Univer s sulfate 325 9-27 ity of mg (65 mg 12:18: [place] iron) EC 45 Medical tablet Branch ezetimibe-s Yes 1{tbl} Take 1 Tab [facility] imvastatin 9-27 by mouth ity o f 10-20 20 12:18: at [place] mg tablet 45 bedtime. Medica l Branch metFORMIN Yes 1000mg Take 1,000 Univers (GLUCOPHAGE 9-27 mg by ity of ) 500 mg 12:18: mouth 2 [place] tablet 45 (two) Medical times Branch daily with meals. SEDRICK Yes 81mg Take 81 mg Univer s CHEWABLE 9-27 by mouth. ity of ASPIRIN 12:18: Indication [place] ORAL 45 s: takes 2 Medical per day Branch rosuvastati Yes 20mg Take 20 mg Univers n 20 mg 9-27 by mouth ity of tablet 12:18: at [place] 45 bedtime. Medical Branch Cholecalcif Yes 2000U Take 2,000 [facility] jose, 9-27 Units by ity of Vitamin D3, 12:18: mouth. [place] 50 mcg 45 Medical (2,000 Branch unit) capsule ferrous Yes 1 tablet Univer s sulfate 325 9-27 ity of mg (65 mg 12:18: [place] iron) EC 45 Medical tablet Branch ezetimibe-s Yes 1{tbl} Take 1 Tab [facility] imvastatin 9-27 by mouth ity o f 10-05-11 12:18: at [place] mg tablet 45 bedtime. Medica l Branch metFORMIN Yes 1000mg Take 1,000 Univers (GLUCOPHAGE 9-27 mg by ity of ) 500 mg 12:18: mouth 2 [place] tablet 45 (two) Medical times Branch daily with meals. SEDRICK Yes 81mg Take 81 mg Univer s CHEWABLE 9-27 by mouth. ity of ASPIRIN 12:18: Indication [place] ORAL 45 s: takes 2 Medical per day Branch rosuvastati Yes 20mg Take 20 mg Univers n 20 mg 9-27 by mouth ity of tablet 12:18: at [place] 45 bedtime. Medical Branch Cholecalcif Yes 2000U Take 2,000 [facility] jose, 9-27 Units by ity of Vitamin D3, 12:18: mouth. [place] 50 mcg 45 Medical (2,000 Branch unit) capsule ferrous Yes 1 tablet Univer s sulfate 325 9-27 ity of mg (65 mg 12:18: [place] iron) EC 45 Medical tablet Branch ezetimibe-s Yes 1{tbl} Take 1 Tab [facility] imvastatin 9-27 by mouth ity o f 10-20 10-20 12:18: at [place] mg tablet 45 bedtime. Medica l Branch metFORMIN Yes 1000mg Take 1,000 Univers (GLUCOPHAGE 9-27 mg by ity of ) 500 mg 12:18: mouth 2 [place] tablet 45 (two) Medical times Branch daily with meals. SEDRICK Yes 81mg Take 81 mg [facility] CHEWABLE 9-27 by mouth. ity [facility] ASPIRIN 12:18: Ind[place]: takes 2 Medical per day Branch rosuvastati Yes 20mg Take 20 mg [facility] n 20 mg 9-27 by mouth ity of tablet 12:18: at [place] 45 bedtime. Medical Branch Cholecalcif Yes 2000U Take 2,000 [facility] jose, 9-27 Units by ity of Vitamin D3, 12:18: [place]. [place] 50 [place] 45 Medical (2,000 Branch unit) capsule ferrous Yes 1 tablet [facility] sulfate 325 9-27 ity of mg (65 mg 12:18: [place] iron) EC 45 Medical tablet Branch isosorbide Yes [id number] 30mg Take 0.5 [facility] mononitrate 9-27 tablets by it y of 60 mg 24 hr 00:00: mouth in [place] tablet 00 the Medical morning. Branch isosorbide Yes [id number] 30mg Take 0.5 [facility] mononitrate 9-27 tablets by it y of 60 mg 24 hr 00:00: mouth in [place] tablet 00 the Medical morning. Branch isosorbide Yes [id number] 30mg Take 0.5 [facility] mononitrate 9-27 tablets by it y of 60 mg 24 hr 00:00: mouth in [place] tablet 00 the Medical morning. Branch isosorbide 2022-0 Yes [id number] 30mg Take 0.5 [facility] mononitrate 9-27 tablets by it y of 60 mg 24 hr 00:00: mouth in [place] tablet 00 the Medical morning. Branch isosorbide 2022-0 Yes [id number] 30mg Take 0.5 [facility] mononitrate 9-27 tablets by it y of 60 mg 24 hr 00:00: mouth in [place] tablet 00 the Medical morning. Branch isosorbide 2022-0 Yes [id number] 30mg Take 0.5 [facility] mononitrate 9-27 tablets by it y of 60 mg 24 hr 00:00: mouth in [place] tablet 00 the Medical morning. Branch isosorbide 2022-0 Yes [id number] 30mg Take 0.5 [facility] mononitrate 9-27 tablets by it y of 60 mg 24 hr 00:00: mouth in [place] tablet 00 the Medical morning. Branch isosorbide 2022-0 Yes [id number] 30mg Take 0.5 [facility] mononitrate 9-27 tablets by it y of 60 mg 24 hr 00:00: mouth in [place] tablet 00 the Medical morning. Branch isosorbide 2022-0 Yes [id number] 30mg Take 0.5 [facility] mononitrate 9-27 tablets by it y of 60 mg 24 hr 00:00: mouth in [place] tablet 00 the Medical morning. Branch isosorbide 2022-0 Yes [id number] 30mg Take 0.5 [facility] mononitrate 9-27 tablets by it y of 60 mg 24 hr 00:00: mouth in [place] tablet 00 the Medical morning. Branch isosorbide 2022-0 Yes [id number] 30mg Take 0.5 [facility] mononitrate 9-27 tablets by it y of 60 mg 24 hr 00:00: mouth in [place] tablet 00 the Medical morning. Branch isosorbide 2022-0 Yes [id number] 30mg Take 0.5 [facility] mononitrate 9-27 tablets by it y of 60 mg 24 hr 00:00: mouth in [place] tablet 00 the Medical morning. Branch isosorbide 2022-0 Yes [id number] 30mg Take 0.5 [facility] mononitrate 9-27 tablets by it y of 60 mg 24 hr 00:00: mouth in [place] tablet 00 the Medical morning. Branch isosorbide 2021- No [id number] 30mg Take 0.5 [facility] mononitrate 04-18 12-05 tablets by i ty of 60 mg 24 hr 00:00: 00:00 mouth in [place] tablet 00 :00 the Medical morning. Branch isosorbide 2021- No [id number] 30mg Take 0.5 [facility] mononitrate 04-18 12-05 tablets by i ty of 60 mg 24 hr 00:00: 00:00 mouth in [place] tablet 00 :00 the Medical morning. Branch ezetimibe-s Yes 1{tbl} Take 1 Tab [facility] imvastatin 9-06 by mouth ity o f 05-11 11:22: at [place] mg tablet 09 bedtime. Medica l Branch ezetimibe-s Yes 1{tbl} Take 1 Tab [facility] imvastatin 9-06 by mouth ity o f 05-11 11:22: at [place] mg tablet 09 bedtime. Medica l Branch ferrous Yes 1 tablet [facility] sulfate 325 9-06 ity of mg (65 mg 11:22: [place] iron) Medical tablet Branch ezetimibe-s Yes 1{tbl} Take 1 Tab [facility] imvastatin 9-06 by mouth ity o f 05-11 11:22: at [place] mg tablet 09 bedtime. Medica l Branch ferrous Yes 1 tablet [facility] sulfate 325 9-06 ity of mg (65 mg 11:22: [place] iron) Medical tablet Branch ezetimibe-s Yes 1{tbl} Take 1 Tab [facility] imvastatin 9-06 by mouth ity o f 05-11 11:22: at [place] mg tablet 09 bedtime. Medica l Branch ferrous Yes 1 tablet [facility] sulfate 325 9-06 ity of mg (65 mg 11:22: [place] iron) Medical tablet Branch metFORMIN Yes 1000mg Take 1,000 [facility] (GLUCOPHAGE 9-01 mg by ity of ) 500 mg 13:05: mouth 2 [place] tablet 40 (two) Medical times Branch daily with meals. SEDRICK 2022-0 Yes 81mg Take 81 mg [facility] CHEWABLE 9- by mouth. ity of ASPIRIN 13:05: Indication [place] ORAL [place] s: takes 2 Medical per day Branch rosuvastati 2021-0 Yes 20mg Take 20 mg [facility] n 20 mg 9-01 by mouth ity of tablet 13:05: at [place] [address] bedtime. Medical Branch Cholecalcif 2021-0 Yes 2000U Take 2,000 [facility] jose, 9-01 Units by ity of Vitamin D3, 13:05: mouth. [place] 50 [place] 40 Medical (2,000 Branch unit) capsule metFORMIN 2021-0 Yes 1000mg Take 1,000 [facility] (GLUCOPHAGE 9-01 mg by ity of ) 500 mg 13:05: mouth 2 [place] tablet 40 (two) Medical times Branch daily with meals. SEDRICK 2021-0 Yes 81mg Take 81 mg [facility] CHEWABLE 03-23 by mouth. ity of ASPIRIN 13:05: Indication [place] ORAL 40 s: takes 2 Medical per day Branch rosuvastati 2021-0 Yes 20mg Take 20 mg [facility] n 20 mg 9-01 by mouth ity of tablet 13:05: at [place] [address] bedtime. Medical Branch Cholecalcif 2021-0 Yes 2000U Take 2,000 [facility] jose, 9-01 Units by ity of Vitamin D3, 13:05: mouth. [place] 50 [place]cg 40 Medical (2,000 Branch unit) capsule metFORMIN 2021-0 Yes 1000mg Take 1,000 [facility] (GLUCOPHAGE 9-01 mg by ity of ) 500 mg 13:05: mouth 2 [place] tablet 40 (two) Medical times Branch daily with meals. SEDRICK 2021-0 Yes 81mg Take 81 mg [facility] CHEWABLE 9 by mouth. ity of ASPIRIN 13:05: Indication [place] ORAL 40 s: takes 2 Medical per day Branch rosuvastati 2021-0 Yes 20mg Take 20 mg [facility] n 20 mg 9-01 by mouth ity of tablet 13:05: at [place] [address] bedtime. Medical Branch Cholecalcif 2022-0 Yes 2000U Take 2,000 [facility] jose, 9-01 Units by ity of Vitamin D3, 13:05: mouth. [place] 50 mcg 40 Medical (2,000 Branch unit) capsule metFORMIN 2021-0 Yes 1000mg Take 1,000 [facility] (GLUCOPHAGE 9-01 mg by ity of ) 500 mg 13:05: mouth 2 [place] tablet 40 (two) Medical times Branch daily with meals. SEDRICK Yes 81mg Take 81 mg [facility] CHEWABLE 03-23 by mouth. ity of ASPIRIN 13:05: Indication [place] ORAL 40 s: takes 2 Medical per day Branch rosuvastati Yes 20mg Take 20 mg [facility] n 20 mg 03-23 by mouth ity of tablet 13:05: at [place] 40 bedtime. Medical Branch Cholecalcif 0 Yes 2000U Take 2,000 [facility] jose, 9- Units by ity of Vitamin D3, 13:05: mouth. [place] 50 mcg 40 Medical (2,000 Branch unit) capsule amoxicillin Yes TAKE ONE [facility] 500 mg 8-06 CAPSULE BY ity of capsule 00:00: MOUTH [place] 00 EVERY 8 Medical HOURS FOR Branch 10 DAYS meclizine Yes TAKE 1 [facility] 25 mg 8-06 TABLET BY ity of tablet 00:00: MOUTH [place] 00 EVERY 8 Medical HOURS Branch NEEDED amoxicillin 0 Yes TAKE ONE [facility] 500 mg 8-06 CAPSULE BY ity of capsule 00:00: MOUTH [place] 00 EVERY 8 Medical HOURS FOR Branch 10 DAYS meclizine Yes TAKE 1 [facility] 25 mg 8-06 TABLET BY ity of tablet 00:00: MOUTH [place] 00 EVERY 8 Medical HOURS Branch NEEDED amoxicillin 2021-0 Yes TAKE ONE [facility] 500 mg 8-06 CAPSULE BY ity of capsule 00:00: MOUTH [place] 00 EVERY 8 Medical HOURS FOR Branch 10 DAYS meclizine 0 Yes TAKE 1 [facility] 25 mg 8-06 TABLET BY ity of tablet 00:00: MOUTH [place] 00 EVERY 8 Medical HOURS Branch NEEDED amoxicillin 2021-0 Yes TAKE ONE [facility] 500 mg 8-06 CAPSULE BY ity of capsule 00:00: MOUTH [place] 00 EVERY 8 Medical HOURS FOR Branch 10 DAYS meclizine 2021-0 Yes TAKE 1 [facility] 25 mg 8-06 TABLET BY ity of tablet 00:00: MOUTH [place] 00 EVERY 8 Medical HOURS Branch NEEDED amoxicillin 2021-0 Yes TAKE ONE [facility] 500 mg 8-06 CAPSULE BY ity of capsule 00:00: MOUTH [place] 00 EVERY 8 Medical HOURS FOR Branch 10 DAYS meclizine 2-0 Yes TAKE 1 [facility] 25 mg 8-06 TABLET BY ity of tablet 00:00: MOUTH [place] 00 EVERY 8 Medical HOURS Branch NEEDED amoxicillin 2-0 Yes TAKE ONE [facility] 500 mg 8-06 CAPSULE BY ity of capsule 00:00: MOUTH [place] 00 EVERY 8 Medical HOURS FOR Branch 10 DAYS meclizine 2021-0 Yes TAKE 1 [facility] 25 mg 8-06 TABLET BY ity of tablet 00:00: MOUTH [place] 00 EVERY 8 Medical HOURS Branch NEEDED amoxicillin 2-0 Yes TAKE ONE [facility] 500 mg 8-06 CAPSULE BY ity of capsule 00:00: MOUTH [place] 00 EVERY 8 Medical HOURS FOR Branch 10 DAYS meclizine 2021-0 Yes TAKE 1 [facility] 25 mg 8-06 TABLET BY ity of tablet 00:00: MOUTH [place] 00 EVERY 8 Medical HOURS Branch NEEDED amoxicillin 2021-0 Yes TAKE ONE [facility] 500 mg 8-06 CAPSULE BY ity of capsule 00:00: MOUTH 00 EVERY 8 Medical HOURS FOR Branch 10 DAYS meclizine 2021-0 Yes TAKE 1 [facility] 25 mg 8-06 TABLET BY ity of tablet 00:00: MOUTH [place] 00 EVERY 8 Medical HOURS Branch NEEDED amoxicillin 2021-0 Yes TAKE ONE [facility] 500 mg 8-06 CAPSULE BY ity of capsule 00:00: MOUTH [place] 00 EVERY 8 Medical HOURS FOR Branch 10 DAYS meclizine 2021-0 Yes TAKE 1 [facility] 25 mg 8-06 TABLET BY ity of tablet 00:00: MOUTH 00 EVERY 8 Medical HOURS Branch NEEDED amoxicillin 2-0 Yes TAKE ONE [facility] 500 mg 8-06 CAPSULE BY ity of capsule 00:00: MOUTH [place] 00 EVERY 8 Medical HOURS FOR Branch 10 DAYS meclizine 2021-0 Yes TAKE 1 [facility] 25 mg 8-06 TABLET BY ity of tablet 00:00: MOUTH [place] 00 EVERY 8 Medical HOURS Branch NEEDED amoxicillin 2-0 Yes TAKE ONE [facility] 500 mg 8-06 CAPSULE BY ity of capsule 00:00: MOUTH [place] 00 EVERY 8 Medical HOURS FOR Branch 10 DAYS meclizine 2021-0 Yes TAKE 1 [facility] 25 mg 8-06 TABLET BY ity of tablet 00:00: MOUTH [place] 00 EVERY 8 Medical HOURS Branch NEEDED amoxicillin 2022-0 Yes TAKE ONE [facility] 500 mg 8-06 CAPSULE BY ity of capsule 00:00: MOUTH [place] 00 EVERY 8 Medical HOURS FOR Branch 10 DAYS meclizine 2021-0 Yes TAKE 1 [facility] 25 mg 8-06 TABLET BY ity of tablet 00:00: MOUTH [place] 00 EVERY 8 Medical HOURS Branch NEEDED amoxicillin 2-0 Yes TAKE ONE [facility] 500 mg 8-06 CAPSULE BY ity of capsule 00:00: MOUTH [place] 00 EVERY 8 Medical HOURS FOR Branch 10 DAYS meclizine 2021-0 Yes TAKE 1 [facility] 25 mg 8-06 TABLET BY ity of tablet 00:00: MOUTH [place] 00 EVERY 8 Medical HOURS Branch NEEDED amoxicillin 2021-0 Yes TAKE ONE [facility] 500 mg 8-06 CAPSULE BY ity of capsule 00:00: MOUTH [place] 00 EVERY 8 Medical HOURS FOR Branch 10 DAYS meclizine 2021-0 Yes TAKE 1 [facility] 25 mg 8-06 TABLET BY ity of tablet 00:00: MOUTH [place] 00 EVERY 8 Medical HOURS Branch NEEDED amoxicillin 2021-0 Yes TAKE ONE [facility] 500 mg 8-06 CAPSULE BY ity of capsule 00:00: MOUTH [place] 00 EVERY 8 Medical HOURS FOR Branch 10 DAYS meclizine 2021-0 Yes TAKE 1 [facility] 25 mg 8-06 TABLET BY ity of tablet 00:00: MOUTH [place] 00 EVERY 8 Medical HOURS Branch NEEDED amoxicillin 2021-0 Yes TAKE ONE [facility] 500 mg 8-06 CAPSULE BY ity of capsule 00:00: MOUTH [place] 00 EVERY 8 Medical HOURS FOR Branch 10 DAYS meclizine 2021-0 Yes TAKE 1 [facility] 25 mg 8-06 TABLET BY ity of tablet 00:00: MOUTH [place] 00 EVERY 8 Medical HOURS Branch NEEDED amoxicillin 2-0 Yes TAKE ONE [facility] 500 mg 8-06 CAPSULE BY ity of capsule 00:00: MOUTH [place] 00 EVERY 8 Medical HOURS FOR Branch 10 DAYS meclizine 2021-0 Yes TAKE 1 [facility] 25 mg 8-06 TABLET BY ity of tablet 00:00: MOUTH [place] 00 EVERY 8 Medical HOURS Branch NEEDED amoxicillin 2-0 Yes TAKE ONE [facility] 500 mg 8-06 CAPSULE BY ity of capsule 00:00: MOUTH [place] 00 EVERY 8 Medical HOURS FOR Branch 10 DAYS meclizine 2022-0 Yes TAKE 1 [facility] 25 mg 8-06 TABLET BY ity of tablet 00:00: MOUTH [place] 00 EVERY 8 Medical HOURS Branch NEEDED amoxicillin 2021-0 Yes TAKE ONE [facility] 500 mg 8-06 CAPSULE BY ity of capsule 00:00: MOUTH [place] 00 EVERY 8 Medical HOURS FOR Branch 10 DAYS meclizine 0 Yes TAKE 1 [facility] 25 mg 8-06 TABLET BY ity of tablet 00:00: MOUTH [place] 00 EVERY 8 Medical HOURS Branch NEEDED amoxicillin 2021-0 Yes TAKE ONE [facility] 500 mg 8-06 CAPSULE BY ity of capsule 00:00: MOUTH [place] 00 EVERY 8 Medical HOURS FOR Branch 10 DAYS meclizine 0 Yes TAKE 1 [facility] 25 mg 8-06 TABLET BY ity of tablet 00:00: MOUTH [place] 00 EVERY 8 Medical HOURS Branch NEEDED amoxicillin 0 Yes TAKE ONE [facility] 500 mg 8-06 CAPSULE BY ity of capsule 00:00: MOUTH [place] 00 EVERY 8 Medical HOURS FOR Branch 10 DAYS meclizine Yes TAKE 1 [facility] 25 mg 8-06 TABLET BY ity of tablet 00:00: MOUTH [place] 00 EVERY 8 Medical HOURS Branch NEEDED amoxicillin 2021-0 2021- No TAKE ONE U [facility] 500 mg 8-06 12-20 CAPSULE BY ity of capsule 00:00: 00:00 MOUTH [place] 00 :00 EVERY 8 Medical HOURS FOR Branch 10 DAYS meclizine 2021-0 2021- No TAKE 1 [facility] 25 mg 8-06 12-20 TABLET BY ity of tablet 00:00: 00:00 MOUTH [place] 00 :00 EVERY 8 Medical HOURS Branch NEEDED amoxicillin 2021-0 2021- No TAKE ONE U [facility]ivers 500 mg 8-06 12-20 CAPSULE BY ity of capsule 00:00: 00:00 MOUTH [place] 00 :00 EVERY 8 Medical HOURS FOR Branch 10 DAYS meclizine 2021-0 2021- No TAKE 1 [facility] 25 mg 8-06 12-20 TABLET BY ity of tablet 00:00: 00:00 MOUTH [place] 00 :00 EVERY 8 Medical HOURS Branch NEEDED lisinopriL 2021-0 Yes [id number] 5mg Take 0.5 [facility] 10 mg 6-07 tablets by ity of tablet 00:00: mouth [place] 00 daily. Medical Branch lisinopriL 2021-0 Yes [id number] 5mg Take 0.5 [facility] 10 mg 6-07 tablets by ity of tablet 00:00: mouth [place] 00 daily. Medical Branch lisinopriL 2021-0 Yes [id number] 5mg Take 0.5 [facility] 10 mg 6-07 tablets by ity of tablet 00:00: mouth [place] 00 daily. Medical Branch lisinopriL 2021-0 Yes [id number] 5mg Take 0.5 [facility] 10 mg 6-07 tablets by ity of tablet 00:00: mouth [place] 00 daily. Medical Branch lisinopriL 2021-0 Yes [id number] 5mg Take 0.5 [facility] 10 mg 6-07 tablets by ity of tablet 00:00: mouth [place] 00 daily. Medical Branch lisinopriL 2021-0 Yes [id number] 5mg Take 0.5 [facility] 10 mg 6-07 tablets by ity of tablet 00:00: mouth [place] 00 daily. Medical Branch lisinopriL 2021-0 Yes [id number] 5mg Take 0.5 [facility] 10 mg 6-07 tablets by ity of tablet 00:00: mouth [place] 00 daily. Medical Branch lisinopriL 2021-0 Yes [id number] 5mg Take 0.5 [facility] 10 mg 6-07 tablets by ity of tablet 00:00: mouth [place] 00 daily. Medical Branch lisinopriL 2021-0 Yes [id number] 5mg Take 0.5 [facility] 10 mg 6-07 tablets by ity of tablet 00:00: mouth [place] 00 daily. Medical Branch lisinopriL 2021-0 Yes [id number] 5mg Take 0.5 [facility] 10 mg 6-07 tablets by ity of tablet 00:00: mouth [place] 00 daily. Medical Branch lisinopriL 2021-0 Yes [id number] 5mg Take 0.5 [facility] 10 mg 6-07 tablets by ity of tablet 00:00: mouth [place] 00 daily. Medical Branch lisinopriL 2-0 Yes [id number] 5mg Take 0.5 [facility] 10 mg 6-07 tablets by ity of tablet 00:00: mouth [place] 00 daily. Medical Branch lisinopriL 2-0 Yes [id number] 5mg Take 0.5 [facility] 10 mg 6-07 tablets by ity of tablet 00:00: mouth [place] 00 daily. Medical Branch lisinopriL 2021-0 Yes [id number] 5mg Take 0.5 [facility] 10 mg 6-07 tablets by ity of tablet 00:00: mouth [place] 00 daily. Medical Branch lisinopriL 2021-0 Yes [id number] 5mg Take 0.5 [facility] 10 mg 6-07 tablets by ity of tablet 00:00: mouth [place] 00 daily. Medical Branch lisinopriL 2021-0 Yes [id number] 5mg Take 0.5 [facility] 10 mg 6-07 tablets by ity of tablet 00:00: mouth [place] 00 daily. Medical Branch lisinopriL 2021-0 Yes [id number] 5mg Take 0.5 [facility] 10 mg 6-07 tablets by ity of tablet 00:00: mouth [place] 00 daily. Medical Branch lisinopriL 2021-0 Yes [id number] 5mg Take 0.5 [facility] 10 mg 6-07 tablets by ity of tablet 00:00: mouth [place] 00 daily. [facility] Branch lisinopriL 2021-0 Yes [id number] 5mg Take 0.5 [facility] 10 mg 6-07 tablets by ity of tablet 00:00: mouth [place] 00 daily. [facility] Branch lisinopriL 2021-0 Yes [id number] 5mg Take 0.5 [facility] 10 mg 6-07 tablets by ity of tablet 00:00: mouth [place] 00 daily. [facility] Branch lisinopriL 2021-0 Yes [id number] 5mg Take 0.5 [facility] 10 mg 6-07 tablets by ity of tablet 00:00: mouth [place] 00 daily. Medical Branch lisinopriL 2021-0 Yes [id number] 5mg Take 0.5 [facility] 10 mg 6-07 tablets by ity of tablet 00:00: mouth [place] 00 daily. Medical Branch lisinopriL 2021-0 Yes [id number] 5mg Take 0.5 [facility] 10 mg 6-07 tablets by ity of tablet 00:00: mouth [place] 00 daily. [facility] Branch lisinopriL 2021-0 Yes [id number] 5mg Take 0.5 [facility] 10 mg 6-07 tablets by ity of tablet 00:00: mouth [place] 00 daily. [facility] Branch lisinopriL 2021-0 Yes [id number] 5mg Take 0.5 [facility] 10 mg 6-07 tablets by ity of tablet 00:00: mouth [place] 00 daily. Medical Branch lisinopriL 2021-0 Yes [id number] 5mg Take 0.5 [facility] 10 mg 6-07 tablets by ity of tablet 00:00: mouth [place] 00 daily. Medical Branch lisinopriL 2021-0 Yes [id number] 5mg Take 0.5 [facility] 10 mg 6-07 tablets by ity of tablet 00:00: mouth [place] 00 daily. Medical Branch lisinopriL 2021-0 Yes [id number] 5mg Take 0.5 [facility] 10 mg 6-07 tablets by ity of tablet 00:00: mouth [place] 00 daily. Medical Branch lisinopriL 2021-0 Yes [id number] 5mg Take 0.5 [facility] 10 mg 6-07 tablets by ity of tablet 00:00: mouth [place] 00 daily. Medical Branch lisinopriL 2021-0 Yes [id number] 5mg Take 0.5 [facility] 10 mg 6-07 tablets by ity of tablet 00:00: mouth [place] 00 daily. Medical Branch lisinopriL 2021-0 Yes [id number] 5mg Take 0.5 [facility] 10 mg 6-07 tablets by ity of tablet 00:00: mouth [place] 00 daily. Medical Branch lisinopriL 2021-0 Yes [id number] 5mg Take 0.5 [facility] 10 mg 6-07 tablets by ity of tablet 00:00: mouth [place] 00 daily. Medical Branch lisinopriL 2021-0 Yes [id number] 5mg Take 0.5 [facility] 10 mg 6-07 tablets by ity of tablet 00:00: mouth [place] 00 daily. Medical Branch lisinopriL 2021-0 Yes [id number] 5mg Take 0.5 [facility] 10 mg 6-07 tablets by ity of tablet 00:00: mouth [place] 00 daily. Medical Branch lisinopriL 2021-0 Yes [id number] 5mg Take 0.5 [facility] 10 mg 6-07 tablets by ity of tablet 00:00: mouth [place] 00 daily. [facility] Branch lisinopriL 2-0 Yes [id number] 5mg Take 0.5 [facility] 10 mg 6-07 tablets by ity of tablet 00:00: mouth [place] 00 daily. [facility] Branch lisinopriL 2-0 Yes [id number] 5mg Take 0.5 [facility] 10 mg 6-07 tablets by ity of tablet 00:00: mouth [place] 00 daily. Medical Branch lisinopriL 2022-0 Yes [id number] 5mg Take 0.5 [facility] 10 mg 6-07 tablets by ity of tablet 00:00: mouth [place] 00 daily. Medical Branch lisinopriL 2022-0 Yes [id number] 5mg Take 0.5 [facility] 10 mg 6-07 tablets by ity of tablet 00:00: mouth in [place] 00 the Medical morning. Branch lisinopriL 2022-0 Yes [id number] 5mg Take 0.5 [facility] 10 mg 6-07 tablets by ity of tablet 00:00: mouth in [place] 00 the Medical morning. Branch lisinopriL 2022-0 Yes [id number] 5mg Take 0.5 [facility] 10 mg 6-07 tablets by ity of tablet 00:00: mouth in [place] 00 the Medical morning. Branch lisinopriL 2022-0 Yes [id number] 5mg Take 0.5 [facility] 10 mg 6-07 tablets by ity of tablet 00:00: mouth in [place] the Medical morning. Branch lisinopriL 2022-0 Yes [id number] 5mg Take 0.5 [facility] 10 mg 6-07 tablets by ity of tablet 00:00: mouth in [place] the Medical morning. Branch lisinopriL 2022-0 Yes [id number] 5mg Take 0.5 [facility] 10 mg 6-07 tablets by ity of tablet 00:00: mouth in [place] the Medical morning. Branch lisinopriL 2022-0 Yes [id number] 5mg Take 0.5 [facility] 10 mg 6-07 tablets by ity of tablet 00:00: mouth in [place] the Medical morning. Branch lisinopriL 2022-0 Yes [id number] 5mg Take 0.5 [facility] 10 mg 6-07 tablets by ity of tablet 00:00: mouth in [place] 00 the Medical morning. Branch lisinopriL 2022-0 Yes [id number] 5mg Take 0.5 [facility] 10 mg 6-07 tablets by ity of tablet 00:00: mouth in [place] 00 the Medical morning. Branch lisinopriL 2022-0 Yes [id number] 5mg Take 0.5 [facility] 10 mg 6-07 tablets by ity of tablet 00:00: mouth in [place] 00 the Medical morning. Branch lisinopriL 2022-0 Yes [id number] 5mg Take 0.5 [facility] 10 mg 6-07 tablets by ity of tablet 00:00: mouth in [place] 00 the Medical morning. Branch lisinopriL 2022-0 Yes [id number] 5mg Take 0.5 [facility] 10 mg 6-07 tablets by ity of tablet 00:00: mouth in [place] 00 the Medical morning. Branch lisinopriL 2022-0 Yes [id number] 5mg Take 0.5 [facility] 10 mg 6-07 tablets by ity of tablet 00:00: mouth in [place] 00 the Medical morning. Branch lisinopriL 2022-0 Yes [id number] 5mg Take 0.5 [facility] 10 mg 6-07 tablets by ity of tablet 00:00: mouth in [place] 00 the Medical morning. Branch lisinopriL 2022-0 Yes [id number] 5mg Take 0.5 [facility] 10 mg 6-07 tablets by ity of tablet 00:00: mouth in [place] 00 the Medical morning. Branch lisinopriL 2022-0 2023- No [id number] 5mg Take 0.5 [facility] 10 mg 6-07 08-16 tablets by ity of tablet 00:00: 00:00 mouth in [place] 00 :00 the Medical morning. Branch lisinopriL 2022-0 2023- No [id number] 5mg Take 0.5 [facility] 10 mg 6-07 08-16 tablets by ity of tablet 00:00: 00:00 mouth in [place] 00 :00 the Medical morning. Branch lisinopriL 2022-0 2023- No [id number] 5mg Take 0.5 [facility] 10 mg 6-07 08-16 tablets by ity of tablet 00:00: 00:00 mouth in [place] 00 :00 the Medical morning. Branch Crestor Crestor 2019-0 Yes [place] 1 tablet C ommon 2-04 [place] at bedtime [facility] 00:00: - [facility] 00 [facility] Estrace Estrace 2017-0 Yes [place] as Commo n 6 [place] directed [facility] 00:00: - [facility] 00 [facility] Estrace 0.1 Estrace 0.1 2017-0 No Estrace MG/GM MG/GM 613 0.1 MG/GM 00:00: 00 Estrace 0.1 Estrace 0.1 No Estrace MG/GM MG/GM 6-13 0.1 MG/GM 00:00: [address] [facility] Yes [id number] 10mg Take 10 mg Univers mg tablet 3-21 by mouth ity of 00:00: daily. [place] [facility] Yes [id number] 10mg Take 10 mg Univers mg tablet 3-21 by mouth ity of 00:00: daily. [place] [facility] Yes [id number] 10mg Take 10 mg [facility] mg tablet 3-21 by mouth ity of 00:00: daily. [place] [facility] Yes [id number] 10mg Take 10 mg [facility] mg tablet 3-21 by mouth ity of 00:00: daily. [address] Yes [id number] 10mg Take 10 mg [facility] mg tablet 3-21 by mouth ity of 00:00: daily. [address] Yes [id number] 10mg Take 10 mg [facility] mg tablet 3-21 by mouth ity of 00:00: daily. [place] [facility] Yes [id number] 10mg Take 10 mg [facility] mg tablet 3-21 by mouth ity of 00:00: daily. [address] Yes [id number] 10mg Take 10 mg [facility] mg tablet 3-21 by mouth ity of 00:00: daily. [address] Yes [id number] 10mg Take 10 mg [facility] mg tablet 3-21 by mouth ity of 00:00: daily. [place] [facility] Yes [id number] 10mg Take 10 mg Univers mg tablet 3-21 by mouth ity of 00:00: daily. [address] Yes [id number] 10mg Take 10 mg [facility] mg tablet 3-21 by mouth ity of 00:00: daily. [address] Yes [id number] 10mg Take 10 mg [facility] mg tablet 3-21 by mouth ity of 00:00: daily. [address] Yes [id number] 10mg Take 10 mg [facility] mg tablet 3-21 by mouth ity of 00:00: daily. [facility] Yes [id number] 10mg Take 10 mg [facility] mg tablet 3-21 by mouth ity of 00:00: daily. [facility] Yes [id number] 10mg Take 10 mg Univers mg tablet 3-21 by mouth ity of 00:00: daily. [facility] Yes [id number] 10mg Take 10 mg [facility] mg tablet 3-21 by mouth ity of 00:00: daily. [facility] Yes [id number] 10mg Take 10 mg [facility] mg tablet 3-21 by mouth ity of 00:00: daily. [facility] Yes [id number] 10mg Take 10 mg [facility] mg tablet 3-21 by mouth ity of 00:00: daily. [facility] Yes [id number] 10mg Take 10 mg [facility] mg tablet 3-21 by mouth ity of 00:00: daily. [facility] Yes [id number] 10mg Take 10 mg [facility] mg tablet 3-21 by mouth ity of 00:00: daily. [facility] Yes [id number] 10mg Take 10 mg [facility] mg tablet 3-21 by mouth ity of 00:00: daily. [facility] Yes [id number] 10mg Take 10 mg [facility] mg tablet 3-21 by mouth ity of 00:00: daily. [facility] Yes [id number] 10mg Take 10 mg [facility] mg tablet 3-21 by mouth ity of 00:00: daily. [place] [id number] 2- No [id number] 10mg Take 10 mg [facility] mg tablet 3-21 12-20 by mouth ity o f 00:00: 00:00 daily. [place] : [facility] 2- No [id number] 10mg Take 10 mg Univers mg tablet 3-21 12-20 by mouth ity o f 00:00: 00:00 daily. [place] : [facility] metoprolol 2017-1 Yes 25mg Take 1 Unive rs tartrate 25 2-18 tablet by ity of mg tablet 00:00: mouth (two) Medical times Branch daily. metoprolol 2016-07 Yes 25mg Take 1 [facility] tartrate 25 2-18 tablet by ity of mg tablet 00:00: mouth (two) [facility] daily. metoprolol 2016-07 Yes 25mg Take 1 [facility] tartrate 25 2-18 tablet by [facility] mg tablet 00:00: mouth (two) [facility] times [facility] daily. metoprolol 2016-07 Yes 25mg Take 1 [facility] tartrate 25 2-18 tablet by [facility] mg tablet 00:00: mouth (two) [facility] times [facility] daily. metoprolol 2016-07 Yes 25mg Take 1 [facility] tartrate 25 2-18 tablet by [facility] mg tablet 00:00: mouth (two) [facility] times [facility] daily. metoprolol 2016-07 Yes 25mg Take 1 [facility] tartrate 25 2-18 tablet by [facility] mg tablet 00:00: mouth (two) [facility] times [facility] daily. metoprolol 2016-07 Yes 25mg Take 1 [facility] tartrate 25 2-18 tablet by [facility] mg tablet 00:00: mouth (two) [facility] times [facility] daily. metoprolol 2016-07 Yes 25mg Take 1 [facility] tartrate 25 2-18 tablet by [facility] mg tablet 00:00: mouth (two) [facility] times [facility] daily. metoprolol 2016-07 Yes 25mg Take 1 [facility] tartrate 25 2-18 tablet by [facility] mg tablet 00:00: mouth (two) [facility] times [facility] daily. metoprolol 2016-07 Yes 25mg Take 1 [facility] tartrate 25 2-18 tablet by [facility] mg tablet 00:00: mouth (two) [facility] times [facility] daily. metoprolol 2016-07 Yes 25mg Take 1 [facility] tartrate 25 2-18 tablet by [facility] mg tablet 00:00: mouth (two) [facility] times [facility] daily. metoprolol 2016-07 Yes 25mg Take 1 [facility] tartrate 25 2-18 tablet by [facility] mg tablet 00:00: mouth (two) [facility] times [facility] daily. metoprolol 2016-07 Yes 25mg Take 1 [facility] tartrate 25 2-18 tablet by [facility] mg tablet 00:00: mouth (two) [facility] times [facility] daily. metoprolol 2016-07 Yes 25mg Take 1 [facility] tartrate 25 2-18 tablet by [facility] mg tablet 00:00: mouth (two) [facility] times [facility] daily. metoprolol 2016-07 Yes 25mg Take 1 [facility] tartrate 25 2-18 tablet by [facility] mg tablet 00:00: mouth (two) [facility] times [facility] daily. metoprolol 2016-07 Yes 25mg Take 1 [facility] tartrate 25 2-18 tablet by [facility] mg tablet 00:00: mouth (two) [facility] times [facility] daily. metoprolol 2016-07 Yes 25mg Take 1 [facility] tartrate 25 2-18 tablet by [facility] mg tablet 00:00: mouth (two) [facility] times [facility] daily. metoprolol 2016-07 Yes 25mg Take 1 [facility] tartrate 25 2-18 tablet by [facility] mg tablet 00:00: mouth (two) [facility] times [facility] daily. metoprolol 2016-07 Yes 25mg Take 1 [facility] tartrate 25 2-18 tablet by [facility] mg tablet 00:00: mouth (two) [facility] times [facility] daily. metoprolol 2016-07 Yes 25mg Take 1 [facility] tartrate 25 2-18 tablet by [facility] mg tablet 00:00: mouth (two) [facility] times [facility] daily. metoprolol 2016-07 Yes 25mg Take 1 [facility] tartrate 25 2-18 tablet by [facility] mg tablet 00:00: mouth (two) [facility] times [facility] daily. metoprolol 2016-07 Yes 25mg Take 1 [facility] tartrate 25 2-18 tablet by [facility] mg tablet 00:00: mouth (two) [facility] times [facility] daily. metoprolol 2016-07 Yes 25mg Take 1 [facility] tartrate 25 2-18 tablet by [facility] mg tablet 00:00: mouth (two) [facility] times [facility] daily. metoprolol 2016-07 Yes 25mg Take 1 [facility] tartrate 25 2-18 tablet by [facility] mg tablet 00:00: mouth 2 (two) [facility] times [facility] daily. metoprolol 2016-07 Yes 25mg Take 1 [facility] tartrate 25 2-18 tablet by [facility] mg tablet 00:00: mouth (two) [facility] times [facility] daily. metoprolol 2016-07 Yes 25mg Take 1 [facility] tartrate 25 2-18 tablet by [facility] mg tablet 00:00: mouth 2 (two) [facility] times [facility] daily. metoprolol 2016-07 Yes 25mg Take 1 [facility] tartrate 25 2-18 tablet by [facility] mg tablet 00:00: mouth (two) [facility] times [facility] daily. metoprolol 2016-07 Yes 25mg Take 1 [facility] tartrate 25 2-18 tablet by [facility] mg tablet 00:00: mouth (two) [facility] times [facility] daily. metoprolol 2016-07 Yes 25mg Take 1 [facility] tartrate 25 2-18 tablet by [facility] of mg tablet 00:00: mouth (two) [facility] times [facility] daily. metoprolol 2016-07 Yes 25mg Take 1 [facility] tartrate 25 2-18 tablet by [facility] mg tablet 00:00: mouth (two) [facility] times [facility] daily. metoprolol 2016-07- No 25mg Take 1 [facility] tartrate 25 2-18 02-02 tablet by [facility] [place] [facility] daily. metoprolol 2016-07- No 25mg Take 1 [facility] tartrate 25 2-18 02-02 tablet by [facility] [place] [facility] daily. metoprolol 2016-07- No 25mg Take 1 [facility] tartrate 25 2-18 02-02 tablet by [facility] [place] [facility] daily. Aspir-81 Aspir-81 Yes [place] 1 tablet C ommon [facility] Lisinopril Lisinopril Yes [place] 1 tablet Common [facility] Metformin Metformin Yes [place] 1 tablet Common HCl HCl [place] with meals [facility] Ferrous Ferrous Yes [place] 1 tablet Com mon Sulfate Sulfate [facility] [place] 1 Common [place] [facility] Metoprolol Metoprolol Yes [place] 1 tablet Common Tartrate Tartrate [place] with food S p[facility] Myrbetriq Myrbetriq Yes [place] TAKE 1 C ommon [place] TABLET BY [facility] MOUTH - [facility] EVERY DAY [facility] No QD Farxiga 10mg 10mg 10mg Rosuvastati Rosuvastati No Rosuvastat n Calcium n Calcium in Calcium 20 MG 20 MG 20 MG metFORMIN metFORMIN No 1{table BID metFORMIN HCl 1000 MG HCl 1000 MG t_with_ HCl 1000 meals} MG Lisinopril Lisinopril No 1{table QD Lisinopril 10 MG 10 MG t} 10 MG metFORMIN metFORMIN No metFORMIN HCl 1000 MG HCl 1000 MG HCl 1000 MG Myrbetriq Myrbetriq No Myrbetriq 25 MG 25 MG 25 MG Aspir-81 81 Aspir-81 81 No 1{table QD Aspir-81 MG MG t} 81 MG Lisinopril Lisinopril No Lisinopril 10 MG 10 MG 10 MG Metoprolol Metoprolol No 1{table BID Metoprolol Tartrate 50 Tartrate 50 t_with_ Tartrate MG MG food} 50 MG Ferrous Ferrous No 1{table BID Ferrous Sulfate 325 Sulfate 325 t} Sulfate (65 Fe) MG (65 Fe) MG 325 (65 Fe) MG Farxiga 10 xiga 10 No Farxiga 10 MG MG MG Crestor 20 Crestor 20 No 1{table QD Crestor 20 MG MG t_at_be MG dtime} Lisinopril Lisinopril No 1{table QD Lisinopril 10 MG 10 MG t} 10 MG metFORMIN metFORMIN No 1{table BID metFORMIN HCl 1000 MG HCl 1000 MG t_with_ HCl 1000 meals} MG xiga No QD Farxiga 10mg 10mg 10mg Aspir-81 81 Aspir-81 81 No 1{table QD Aspir-81 MG MG t} 81 MG Metoprolol Metoprolol No 1{table BID Metoprolol Tartrate 50 Tartrate 50 t_with_ Tartrate MG MG food} 50 MG Ferrous Ferrous No 1{table BID Ferrous Sulfate 325 Sulfate 325 t} Sulfate (65 Fe) MG (65 Fe) MG 325 (65 Fe) MG Crestor 20 Crestor 20 No 1{table QD Crestor 20 MG MG t_at_be MG dtime} Lisinopril Lisinopril No 1{table QD Lisinopril 10 MG 10 MG t} 10 MG Metoprolol Metoprolol No Metoprolol Tartrate 50 Tartrate 50 Tartrate MG MG 50 MG Farxiga [facility] No QD Farxiga 10mg 10mg 10mg Rosuvastati Rosuvastati No Rosuvastat n Calcium n Calcium in Calcium 20 MG 20 MG 20 MG Aspir-81 81 Aspir-81 81 No 1{table QD Aspir-81 MG MG t} 81 MG metFORMIN metFORMIN No metFORMIN HCl 1000 MG HCl 1000 MG HCl 1000 MG Ferrous Ferrous No 1{table BID Ferrous Sulfate 325 Sulfate 325 t} Sulfate (65 Fe) MG (65 Fe) MG 325 (65 Fe) MG Crestor 20 Crestor 20 No 1{table QD Crestor 20 MG MG t_at_be MG dtime} Aspir-81 81 Aspir-81 81 No 1{table QD Aspir-81 MG MG t} 81 MG Lisinopril Lisinopril No Lisinopril 10 MG 10 MG 10 MG Metoprolol Metoprolol No Metoprolol Tartrate 50 Tartrate 50 Tartrate MG MG 50 MG Rosuvastati Rosuvastati No Rosuvastat n Calcium n Calcium in Calcium 20 MG 20 MG 20 MG Ferrous Ferrous No 1{table BID Ferrous Sulfate 325 Sulfate 325 t} Sulfate (65 Fe) MG (65 Fe) MG 325 (65 Fe) MG metFORMIN metFORMIN No metFORMIN HCl 1000 MG HCl 1000 MG HCl 1000 MG [facility] No QD Farxiga 10mg 10mg 10mg Crestor 20 Crestor 20 No 1{table QD Crestor 20 MG MG t_at_be MG dtime} Aspir-81 81 Aspir-81 81 No 1{table QD Aspir-81 MG MG t} 81 MG Lisinopril Lisinopril No Lisinopril 10 MG 10 MG 10 MG Metoprolol Metoprolol No Metoprolol Tartrate 50 Tartrate 50 Tartrate MG MG 50 MG Rosuvastati Rosuvastati No Rosuvastat n Calcium n Calcium in Calcium 20 MG 20 MG 20 MG Ferrous Ferrous No 1{table BID Ferrous Sulfate 325 Sulfate 325 t} Sulfate (65 Fe) MG (65 Fe) MG 325 (65 Fe) MG metFORMIN metFORMIN No metFORMIN HCl 1000 MG HCl 1000 MG HCl 1000 MG Farxiga Farxiga No QD Farxiga 10mg 10mg 10mg Crestor 20 Crestor 20 No 1{table QD Crestor 20 MG MG t_at_be MG dtime} Lisinopril Lisinopril No 1{table QD Lisinopril 10 MG 10 MG t} 10 MG metFORMIN metFORMIN No metFORMIN HCl 1000 MG HCl 1000 MG HCl 1000 MG Lisinopril Lisinopril No Lisinopril 10 MG 10 MG 10 MG Metoprolol Metoprolol No Metoprolol Tartrate 50 Tartrate 50 Tartrate MG MG 50 MG Ferrous Ferrous No 1{table BID Ferrous Sulfate 325 Sulfate 325 t} Sulfate (65 Fe) MG (65 Fe) MG 325 (65 Fe) MG Farxiga Farxiga No QD Farxiga 10mg 10mg 10mg Rosuvastati Rosuvastati No Rosuvastat n Calcium n Calcium in Calcium 20 MG 20 MG 20 MG Metoprolol Metoprolol No 1{table BID Metoprolol Tartrate 50 Tartrate 50 t_with_ Tartrate MG MG food} 50 MG metFORMIN metFORMIN No 1{table BID metFORMIN HCl 1000 MG HCl 1000 MG t_with_ HCl 1000 meals} MG Aspir-81 81 Aspir-81 81 No 1{table QD Aspir-81 MG MG t} 81 MG Crestor 20 Crestor 20 No 1{table QD Crestor 20 MG MG t_at_be MG dtime} metFORMIN metFORMIN No metFORMIN HCl 1000 MG HCl 1000 MG HCl 1000 MG Lisinopril Lisinopril No Lisinopril 10 MG 10 MG 10 MG Ferrous Ferrous No 1{table BID Ferrous Sulfate 325 Sulfate 325 t} Sulfate (65 Fe) MG (65 Fe) MG 325 (65 Fe) MG Rosuvastati Rosuvastati No Rosuvastat n Calcium n Calcium in Calcium 20 MG 20 MG 20 MG Farxiga Farxiga No QD Farxiga 10mg 10mg 10mg Aspir-81 81 Aspir-81 81 No 1{table QD Aspir-81 MG MG t} 81 MG Metoprolol Metoprolol No Metoprolol Tartrate 50 Tartrate 50 Tartrate MG MG 50 MG Crestor 20 Crestor 20 No 1{table QD Crestor 20 MG MG t_at_be MG dtime} Farxiga [facility] No QD Farxiga 10mg 10mg 10mg Clopidogrel Clopidogrel No 1{table QD Clopidogre Bisulfate Bisulfate t} l 75 MG 75 MG Bisulfate 75 MG Isosorbide Isosorbide No 1{table QD Isosorbide Mononitrate Mononitrate t_in_th Mononitrat ER 60 MG ER 60 MG e_morni e ER 60 MG ng} Lisinopril Lisinopril No 1{table QD Lisinopril 10 MG 10 MG t} 10 MG Rosuvastati Rosuvastati No Rosuvastat n Calcium n Calcium in Calcium 20 MG 20 MG 20 MG metFORMIN metFORMIN No 1{table BID metFORMIN HCl 1000 MG HCl 1000 MG t_with_ HCl 1000 meals} MG Crestor 20 Crestor 20 No 1{table QD Crestor 20 MG MG t_at_be MG dtime} Metoprolol Metoprolol No 1{table BID Metoprolol Tartrate 50 Tartrate 50 t_with_ Tartrate MG MG food} 50 MG Ferrous Ferrous No 1{table BID Ferrous Sulfate 325 Sulfate 325 t} Sulfate (65 Fe) MG (65 Fe) MG 325 (65 Fe) MG Aspir-81 81 Aspir-81 81 No 1{table QD Aspir-81 MG MG t} 81 MG Ferrous Ferrous No 1{table BID Ferrous Sulfate 325 Sulfate 325 t} Sulfate (65 Fe) MG (65 Fe) MG 325 (65 Fe) MG Isosorbide Isosorbide No 1{table QD Isosorbide Mononitrate Mononitrate t_in_th Mononitrat ER 60 MG ER 60 MG e_morni e ER 60 MG ng} [facility] No QD Farxiga 10mg 10mg 10mg metFORMIN metFORMIN No metFORMIN HCl 1000 MG HCl 1000 MG HCl 1000 MG Metoprolol Metoprolol No Metoprolol Tartrate 50 Tartrate 50 Tartrate MG MG 50 MG Clopidogrel Clopidogrel No 1{table QD Clopidogre Bisulfate Bisulfate t} l 75 MG 75 MG Bisulfate 75 MG Aspir-81 81 Aspir-81 81 No 1{table QD Aspir-81 MG MG t} 81 MG Rosuvastati Rosuvastati No Rosuvastat n Calcium n Calcium in Calcium 20 MG 20 MG 20 MG Crestor 20 Crestor 20 No 1{table QD Crestor 20 MG MG t_at_be MG dtime} Lisinopril Lisinopril No 1{table QD Lisinopril 10 MG 10 MG t} 10 MG Ferrous Ferrous No 1{table BID Ferrous Sulfate 325 Sulfate 325 t} Sulfate (65 Fe) MG (65 Fe) MG 325 (65 Fe) MG Isosorbide Isosorbide No 1{table QD Isosorbide Mononitrate Mononitrate t_in_th Mononitrat ER 60 MG ER 60 MG e_morni e ER 60 MG ng} Farxiga xi No QD Farxiga 10mg 10mg 10mg metFORMIN metFORMIN No metFORMIN HCl 1000 MG HCl 1000 MG HCl 1000 MG Metoprolol Metoprolol No Metoprolol Tartrate 50 Tartrate 50 Tartrate MG MG 50 MG Clopidogrel Clopidogrel No 1{table QD Clopidogre Bisulfate Bisulfate t} l 75 MG 75 MG Bisulfate 75 MG Aspir-81 81 Aspir-81 81 No 1{table QD Aspir-81 MG MG t} 81 MG Rosuvastati Rosuvastati No Rosuvastat n Calcium n Calcium in Calcium 20 MG 20 MG 20 MG Crestor 20 Crestor 20 No 1{table QD Crestor 20 MG MG t_at_be MG dtime} Lisinopril Lisinopril No 1{table QD Lisinopril 10 MG 10 MG t} 10 MG Ferrous Ferrous No 1{table BID Ferrous Sulfate 325 Sulfate 325 t} Sulfate (65 Fe) MG (65 Fe) MG 325 (65 Fe) MG Isosorbide Isosorbide No 1{table QD Isosorbide Mononitrate Mononitrate t_in_th Mononitrat ER 60 MG ER 60 MG e_morni e ER 60 MG ng} [facility] 10mg 10mg 10mg metFORMIN metFORMIN No metFORMIN HCl 1000 MG HCl 1000 MG HCl 1000 MG Metoprolol Metoprolol No Metoprolol Tartrate 50 Tartrate 50 Tartrate MG MG 50 MG Clopidogrel Clopidogrel No 1{table QD Clopidogre Bisulfate Bisulfate t} l 75 MG 75 MG Bisulfate 75 MG Aspir-81 81 Aspir-81 81 No 1{table QD Aspir-81 MG MG t} 81 MG Rosuvastati Rosuvastati No Rosuvastat n Calcium n Calcium in Calcium 20 MG 20 MG 20 MG Crestor 20 Crestor 20 No 1{table QD Crestor 20 MG MG t_at_be MG dtime} Lisinopril Lisinopril No 1{table QD Lisinopril 10 MG 10 MG t} 10 MG Crestor 20 Crestor 20 No 1{table QD Crestor 20 MG MG t_at_be MG dtime} Lisinopril Lisinopril No 1{table QD Lisinopril 10 MG 10 MG t} 10 MG metFORMIN metFORMIN No 1{table BID metFORMIN HCl 1000 MG HCl 1000 MG t_with_ HCl 1000 meals} MG Ferrous Ferrous No 1{table BID Ferrous Sulfate 325 Sulfate 325 t} Sulfate (65 Fe) MG (65 Fe) MG 325 (65 Fe) MG Myrbetriq Myrbetriq No Myrbetriq 25 MG 25 MG 25 MG Farxiga 10 Farxiga 10 No Farxiga 10 MG MG MG Crestor 20 Crestor 20 No 1{table QD Crestor 20 MG MG t_at_be MG dtime} Farxiga Farxiga No QD Farxiga 10mg 10mg 10mg Metoprolol Metoprolol No 1{table BID Metoprolol Tartrate 50 Tartrate 50 t_with_ Tartrate MG MG food} 50 MG Metoprolol Metoprolol No 1{table BID Metoprolol Tartrate 50 Tartrate 50 t_with_ Tartrate MG MG food} 50 MG Lisinopril Lisinopril No 1{table QD Lisinopril 10 MG 10 MG t} 10 MG Aspir-81 81 Aspir-81 81 No 1{table QD Aspir-81 MG MG t} 81 MG metFORMIN metFORMIN No metFORMIN HCl 1000 MG HCl 1000 MG HCl 1000 MG Metoprolol Metoprolol No Metoprolol Tartrate 50 Tartrate 50 Tartrate MG MG 50 MG Immunizations Ordered Filled Immunization Date Status Comments [facility] e Immunization Name Name Influenza Virus 2021-07-04 Completed [facility] [place] [facility] 65[facility] Influenza Virus 2021-07-04 Completed [facility] Vaccine,quad 00:00:00 [place] [facility] 65+ Influenza Virus 2021-07-04 Completed [facility] Vaccine,quad 00:00:00 [place] [facility] 65+ Influenza Virus 2021-07-04 Completed [facility] Vaccine,quad 00:00:00 [place] [facility] 65+ Influenza Virus 2021-07-04 Completed [facility] Vaccine,quad 00:00:00 [place] [facility] 65+ Influenza Virus 2021-07-04 Completed [facility] Vaccine,quad 00:00:00 [place] [facility] 65+ Influenza Virus 2021-07-04 Completed [facility] Vaccine,quad 00:00:00 [place] [facility] 65+ Influenza Virus 2021-07-04 Completed [facility] Vaccine,quad 00:00:00 [place] [facility] 65+ Influenza Virus 2021-07-04 Completed [facility] Vaccine,quad 00:00:00 [place] [facility] 65+ Influenza Virus 2021-07-04 Completed [facility] Vaccine,quad 00:00:00 [place] [facility] 65+ Influenza Virus 2021-07-04 Completed [facility] Vaccine,quad 00:00:00 [place] [facility] 65+ Influenza Virus 2021-07-04 Completed [facility] Vaccine,quad 00:00:00 [place] [facility] 65+ Influenza Virus 2021-07-04 Completed [facility] Vaccine,quad 00:00:00 [place] [facility] 65+ Influenza Virus 2021-07-04 Completed [facility] Vaccine,quad 00:00:00 [place] [facility] 65+ Influenza Virus 2021-07-04 Completed [facility] Vaccine,quad 00:00:00 [place] [facility] 65+ Influenza Virus 2021-07-04 Completed [facility] Vaccine,quad 00:00:00 [place] [facility] 65+ Influenza Virus 2021-07-04 Completed [facility] Vaccine,quad 00:00:00 [place] [facility] 65+ Influenza Virus 2021-07-04 Completed [facility] Vaccine,quad 00:00:00 [place] [facility] 65+ Influenza Virus 2021-07-04 Completed [facility] Vaccine,quad 00:00:00 [place] [facility] 65+ Influenza Virus 2021-07-04 Completed [facility] Vaccine,quad 00:00:00 [place] [facility] 65+ Influenza Virus 2021-07-04 Completed [facility] Vaccine,quad 00:00:00 [place] [facility] 65+ Influenza Virus 2021-07-04 Completed [facility] Vaccine,quad 00:00:00 [place] [facility] 65+ Influenza Virus 2021-07-04 Completed [facility] Vaccine,quad 00:00:00 [place] [facility] 65+ Influenza Virus 2021-07-04 Completed [facility] Vaccine,quad 00:00:00 [place] [facility] 65+ Influenza Virus 2021-07-04 Completed [facility] Vaccine,quad 00:00:00 [place] [facility] 65+ Influenza Virus 2021-07-04 Completed [facility] Vaccine,quad 00:00:00 [place] [facility] 65+ Influenza Virus 2021-07-04 Completed [facility] Vaccine,quad 00:00:00 [place] [facility] 65+ Influenza Virus 2021-07-04 Completed [facility] Vaccine,quad 00:00:00 [place] [facility] 65+ Influenza Virus 2021-07-04 Completed [facility] Vaccine,quad 00:00:00 [place] [facility] 65+ Influenza Virus 2021-07-04 Completed [facility] Vaccine,quad 00:00:00 [place] [facility] 65+ Influenza Virus 2021-07-04 Completed [facility] Vaccine,quad 00:00:00 [place] [facility] 65+ Influenza Virus 2021-07-04 Completed [facility] Vaccine,quad 00:00:00 [place] [facility] 65+ Influenza Virus 2021-07-04 Completed [facility] Vaccine,quad 00:00:00 [place] [facility] 65+ Influenza Virus 2021-07-04 Completed [facility] Vaccine,quad 00:00:00 [place] [facility] 65+ Influenza Virus 2021-07-04 Completed [facility] Vaccine,quad 00:00:00 [place] [facility] 65+ Influenza Virus 2021-07-04 Completed [facility] Vaccine,quad 00:00:00 [place] [facility] 65+ Influenza Virus 2021-07-04 Completed [facility] Vaccine,quad 00:00:00 [place] [facility] 65+ Influenza Virus 2021-07-04 Completed [facility] Vaccine,quad 00:00:00 [place] [facility] 65+ Influenza Virus 2021-07-04 Completed [facility] Vaccine,quad 00:00:00 [place] [facility] 65+ Influenza Virus 2021-07-04 Completed [facility] Vaccine,quad 00:00:00 [place] [facility] 65+ Influenza Virus 2021-07-04 Completed [facility] Vaccine,quad 00:00:00 [place] [facility] 65+ Influenza Virus 2021-07-04 Completed [facility] Vaccine,quad 00:00:00 [place] [facility] 65+ Influenza Virus 2021-07-04 Completed [facility] Vaccine,quad 00:00:00 [place] [facility] 65+ Influenza Virus 2021-07-04 Completed [facility] Vaccine,quad 00:00:00 [place] [facility] 65+ Influenza Virus 2021-07-04 Completed [facility] Vaccine,quad 00:00:00 [place] [facility] 65+ Influenza Virus 2021-07-04 Completed [facility] Vaccine,quad 00:00:00 [place] [facility] 65+ Influenza Virus 2021-07-04 Completed [facility] Vaccine,quad 00:00:00 [place] [facility] 65+ Influenza Virus 2021-07-04 Completed [facility] Vaccine,quad 00:00:00 [place] [facility] 65+ Influenza Virus 2021-07-04 Completed [facility] Vaccine,quad 00:00:00 [place] [facility] 65+ Influenza Virus 2021-07-04 Completed [facility] Vaccine,quad 00:00:00 [place] [facility] 65+ Influenza Virus 2021-07-04 Completed [facility] Vaccine,quad 00:00:00 [place] [facility] 65+ Influenza Virus 2021-07-04 Completed [facility] Vaccine,quad 00:00:00 [place] [facility] 65+ Influenza Virus 2021-07-04 Completed [facility] Vaccine,quad 00:00:00 [place] [facility] 65+ Influenza Virus 2021-07-04 Completed [facility] Vaccine,quad 00:00:00 [place] [facility] 65+ Influenza Virus 2021-07-04 Completed [facility] Vaccine,quad 00:00:00 [place] [facility] 65+ Influenza Virus 2021-07-04 Completed [facility] Vaccine,quad 00:00:00 [place] [facility] 65+ Influenza Virus 2021-07-04 Completed [facility] Vaccine,quad 00:00:00 [place] [facility] 65+ Influenza Virus 2021-07-04 Completed [facility] Vaccine,quad 00:00:00 [place] [facility] 65+ (FLUAD) Influenza Virus 2021-07-04 Completed [facility] Vaccine,quad 00:00:00 [place] [facility] 65+ (FLUAD) Influenza Virus 2021-07-04 Completed [facility] Vaccine,quad 00:00:00 [place] [facility] 65+ (FLUAD) Influenza Virus 2021-07-04 Completed [facility] Vaccine,quad 00:00:00 [place] [facility] 65+ (FLUAD) SARS-COV-2 COVID-19 2020-12-13 Completed [facility] of PFIZER VACCINE 00:00:00 [facility] SARS-COV-2 COVID-19 2020-12-13 Completed [facility]ive rs[facility] of PFIZER VACCINE 00:00:00 [facility] SARS-COV-2 COVID-19 2020-12-13 Completed [facility]ive rsity of PFIZER VACCINE 00:00:00 [facility] SARS-COV-2 COVID-19 2020-12-13 Completed [facility]ive rsity of PFIZER VACCINE 00:00:00 [facility] SARS-COV-2 COVID-19 2020-12-13 Completed [facility]ive rsity of PFIZER VACCINE 00:00:00 [facility] SARS-COV-2 COVID-19 2020-12-13 Completed Unive rsity of PFIZER VACCINE 00:00:00 [facility] SARS-COV-2 COVID-19 2020-12-13 Completed [facility]ive rsity of PFIZER VACCINE 00:00:00 [facility] SARS-COV-2 COVID-19 2020-12-13 Completed [facility]ive rsity of PFIZER VACCINE 00:00:00 [facility] SARS-COV-2 COVID-19 2020-12-13 Completed [facility]ive rsity of PFIZER VACCINE 00:00:00 [facility] SARS-COV-2 COVID-19 2020-12-13 Completed [facility]ive rsity of PFIZER VACCINE 00:00:00 [facility] SARS-COV-2 COVID-19 2020-12-13 Completed [facility]ive rsity of PFIZER VACCINE 00:00:00 [facility] SARS-COV-2 COVID-19 2020-12-13 Completed [facility]ive rsity of PFIZER VACCINE 00:00:00 [facility] SARS-COV-2 COVID-19 2020-12-13 Completed [facility]ive rsity of PFIZER VACCINE 00:00:00 [facility] SARS-COV-2 COVID-19 2020-12-13 Completed [facility]ive rsity of PFIZER VACCINE 00:00:00 [facility] SARS-COV-2 COVID-19 2020-12-13 Completed [facility]ive rsity of PFIZER VACCINE 00:00:00 [facility] SARS-COV-2 COVID-19 2020-12-13 Completed [facility]ive rsity of PFIZER VACCINE 00:00:00 [facility] SARS-COV-2 COVID-19 2020-12-13 Completed [facility]ive rsity of PFIZER VACCINE 00:00:00 [facility] SARS-COV-2 COVID-19 2020-12-13 Completed [facility]ive rsity of PFIZER VACCINE 00:00:00 [facility] SARS-COV-2 COVID-19 2020-12-13 Completed [facility]ive rsity of PFIZER VACCINE 00:00:00 [facility] SARS-COV-2 COVID-19 2020-12-13 Completed [facility]ive rsity of PFIZER VACCINE 00:00:00 [facility] SARS-COV-2 COVID-19 2020-12-13 Completed Unive rsity of PFIZER VACCINE 00:00:00 [facility] SARS-COV-2 COVID-19 2020-12-13 Completed Unive rsity of PFIZER VACCINE 00:00:00 [facility] SARS-COV-2 COVID-19 2020-12-13 Completed Unive rsity of PFIZER VACCINE 00:00:00 [facility] SARS-COV-2 COVID-19 2020-12-13 Completed [facility] PFIZER VACCINE 00:00:00 [facility] SARS-COV-2 COVID-19 2020-12-13 Completed [facility] of PFIZER VACCINE 00:00:00 [facility] SARS-COV-2 COVID-19 2020-12-13 Completed [facility] of PFIZER VACCINE 00:00:00 [facility] SARS-COV-2 COVID-19 2020-12-13 Completed [facility] of PFIZER VACCINE 00:00:00 [facility] SARS-COV-2 COVID-19 2020-12-13 Completed [facility] of PFIZER VACCINE 00:00:00 [facility] SARS-COV-2 COVID-19 2020-12-13 Completed [facility] of PFIZER VACCINE 00:00:00 [facility] SARS-COV-2 COVID-19 2020-12-13 Completed [facility] of PFIZER VACCINE 00:00:00 [facility] SARS-COV-2 COVID-19 2020-12-13 Completed [facility] of PFIZER VACCINE 00:00:00 [facility] SARS-COV-2 COVID-19 2020-12-13 Completed [facility] of PFIZER VACCINE 00:00:00 [facility] SARS-COV-2 COVID-19 2020-12-13 Completed [facility] of PFIZER VACCINE 00:00:00 [facility] SARS-COV-2 COVID-19 2020-12-13 Completed [facility] PFIZER VACCINE 00:00:00 [facility] SARS-COV-2 COVID-19 2020-12-13 Completed [facility] of PFIZER VACCINE 00:00:00 [facility] SARS-COV-2 COVID-19 2020-12-13 Completed [facility] of PFIZER VACCINE 00:00:00 [facility] SARS-COV-2 COVID-19 2020-12-13 Completed [facility] of PFIZER VACCINE 00:00:00 [facility] SARS-COV-2 COVID-19 2020-12-13 Completed [facility] of PFIZER VACCINE 00:00:00 [facility] SARS-COV-2 COVID-19 2020-12-13 Completed [facility] of PFIZER VACCINE 00:00:00 [facility] SARS-COV-2 COVID-19 2020-12-13 Completed [facility] of PFIZER VACCINE 00:00:00 [facility] SARS-COV-2 COVID-19 2020-12-13 Completed [facility] of PFIZER VACCINE 00:00:00 [facility] SARS-COV-2 COVID-19 2020-12-13 Completed [facility] of PFIZER VACCINE 00:00:00 [facility] SARS-COV-2 COVID-19 2020-12-13 Completed [facility] of PFIZER VACCINE 00:00:00 [facility] SARS-COV-2 COVID-19 2020-12-13 Completed [facility] of PFIZER VACCINE 00:00:00 [facility] SARS-COV-2 COVID-19 2020-12-13 Completed [facility] of PFIZER VACCINE 00:00:00 [facility] SARS-COV-2 COVID-19 2020-12-13 Completed [facility] of PFIZER VACCINE 00:00:00 [facility] SARS-COV-2 COVID-19 2020-12-13 Completed [facility] of PFIZER VACCINE 00:00:00 [facility] SARS-COV-2 COVID-19 2020-12-13 Completed [facility] of PFIZER VACCINE 00:00:00 [facility] SARS-COV-2 COVID-19 2020-12-13 Completed [facility] of PFIZER VACCINE 00:00:00 [facility] SARS-COV-2 COVID-19 2020-12-13 Completed [facility] of PFIZER VACCINE 00:00:00 [facility] SARS-COV-2 COVID-19 2020-12-13 Completed [facility] PFIZER VACCINE 00:00:00 [facility] SARS-COV-2 COVID-19 2020-12-13 Completed [facility] of PFIZER VACCINE 00:00:00 [facility] SARS-COV-2 COVID-19 2020-12-13 Completed [facility] of PFIZER VACCINE 00:00:00 [facility] SARS-COV-2 COVID-19 2020-12-13 Completed [facility] of PFIZER VACCINE 00:00:00 [facility] SARS-COV-2 COVID-19 2020-12-13 Completed [facility] of PFIZER VACCINE 00:00:00 [facility] SARS-COV-2 COVID-19 2020-12-13 Completed [facility] PFIZER VACCINE 00:00:00 [facility] SARS-COV-2 COVID-19 2020-12-13 Completed [facility] of PFIZER VACCINE 00:00:00 [facility] SARS-COV-2 COVID-19 2020-12-13 Completed [facility] PFIZER VACCINE 00:00:00 [facility] SARS-COV-2 COVID-19 2020-12-13 Completed [facility] PFIZER VACCINE 00:00:00 [facility] SARS-COV-2 COVID-19 2020-12-13 Completed [facility] PFIZER VACCINE 00:00:00 [facility] SARS-COV-2 COVID-19 2020-12-13 Completed [facility] PFIZER VACCINE 00:00:00 [facility] SARS-COV-2 COVID-19 2020-11-20 Completed [facility] of PFIZER VACCINE 00:00:00 [facility] SARS-COV-2 COVID-19 2020-11-20 Completed [facility] of PFIZER VACCINE 00:00:00 [facility] SARS-COV-2 COVID-19 2020-11-20 Completed [facility] PFIZER VACCINE 00:00:00 [facility] SARS-COV-2 COVID-19 2020-11-20 Completed [facility] PFIZER VACCINE 00:00:00 [facility] SARS-COV-2 COVID-19 2020-11-20 Completed [facility] PFIZER VACCINE 00:00:00 [facility] SARS-COV-2 COVID-19 2020-11-20 Completed [facility] PFIZER VACCINE 00:00:00 [facility] SARS-COV-2 COVID-19 2020-11-20 Completed [facility] of PFIZER VACCINE 00:00:00 [facility] SARS-COV-2 COVID-19 2020-11-20 Completed [facility] of PFIZER VACCINE 00:00:00 [facility] SARS-COV-2 COVID-19 2020-11-20 Completed [facility] PFIZER VACCINE 00:00:00 [facility] SARS-COV-2 COVID-19 2020-11-20 Completed [facility] PFIZER VACCINE 00:00:00 [facility] SARS-COV-2 COVID-19 2020-11-20 Completed [facility] PFIZER VACCINE 00:00:00 [facility] SARS-COV-2 COVID-19 2020-11-20 Completed [facility] PFIZER VACCINE 00:00:00 [facility] SARS-COV-2 COVID-19 2020-11-20 Completed [facility] of PFIZER VACCINE 00:00:00 [facility] SARS-COV-2 COVID-19 2020-11-20 Completed [facility] PFIZER VACCINE 00:00:00 [facility] SARS-COV-2 COVID-19 2020-11-20 Completed [facility] PFIZER VACCINE 00:00:00 [facility] SARS-COV-2 COVID-19 2020-11-20 Completed [facility] PFIZER VACCINE 00:00:00 [facility] SARS-COV-2 COVID-19 2020-11-20 Completed [facility] PFIZER VACCINE 00:00:00 [facility] SARS-COV-2 COVID-19 2020-11-20 Completed [facility] PFIZER VACCINE 00:00:00 [facility] SARS-COV-2 COVID-19 2020-11-20 Completed [facility] PFIZER VACCINE 00:00:00 [facility] SARS-COV-2 COVID-19 2020-11-20 Completed [facility] PFIZER VACCINE 00:00:00 [facility] SARS-COV-2 COVID-19 2020-11-20 Completed [facility] PFIZER VACCINE 00:00:00 [facility] SARS-COV-2 COVID-19 2020-11-20 Completed [facility] of PFIZER VACCINE 00:00:00 [facility] SARS-COV-2 COVID-19 2020-11-20 Completed [facility] of PFIZER VACCINE 00:00:00 [facility] SARS-COV-2 COVID-19 2020-11-20 Completed [facility] PFIZER VACCINE 00:00:00 [facility] SARS-COV-2 COVID-19 2020-11-20 Completed [facility] PFIZER VACCINE 00:00:00 [facility] SARS-COV-2 COVID-19 2020-11-20 Completed [facility] of PFIZER VACCINE 00:00:00 [facility] SARS-COV-2 COVID-19 2020-11-20 Completed [facility] of PFIZER VACCINE 00:00:00 [facility] SARS-COV-2 COVID-19 2020-11-20 Completed [facility] of PFIZER VACCINE 00:00:00 [facility] SARS-COV-2 COVID-19 2020-11-20 Completed [facility] of PFIZER VACCINE 00:00:00 [facility] SARS-COV-2 COVID-19 2020-11-20 Completed [facility] PFIZER VACCINE 00:00:00 [facility] SARS-COV-2 COVID-19 2020-11-20 Completed [facility] of PFIZER VACCINE 00:00:00 [facility] SARS-COV-2 COVID-19 2020-11-20 Completed [facility] of PFIZER VACCINE 00:00:00 [facility] SARS-COV-2 COVID-19 2020-11-20 Completed [facility] PFIZER VACCINE 00:00:00 [facility] SARS-COV-2 COVID-19 2020-11-20 Completed [facility] PFIZER VACCINE 00:00:00 [facility] SARS-COV-2 COVID-19 2020-11-20 Completed [facility] PFIZER VACCINE 00:00:00 [facility] SARS-COV-2 COVID-19 2020-11-20 Completed [facility] PFIZER VACCINE 00:00:00 [facility] SARS-COV-2 COVID-19 2020-11-20 Completed [facility] of PFIZER VACCINE 00:00:00 [facility] SARS-COV-2 COVID-19 2020-11-20 Completed [facility] PFIZER VACCINE 00:00:00 [facility] SARS-COV-2 COVID-19 2020-11-20 Completed [facility] PFIZER VACCINE 00:00:00 [facility] SARS-COV-2 COVID-19 2020-11-20 Completed [facility] PFIZER VACCINE 00:00:00 [facility] SARS-COV-2 COVID-19 2020-11-20 Completed [facility] of PFIZER VACCINE 00:00:00 [facility] SARS-COV-2 COVID-19 2020-11-20 Completed [facility] of PFIZER VACCINE 00:00:00 [facility] SARS-COV-2 COVID-19 2020-11-20 Completed [facility] PFIZER VACCINE 00:00:00 [facility] SARS-COV-2 COVID-19 2020-11-20 Completed [facility] PFIZER VACCINE 00:00:00 [facility] SARS-COV-2 COVID-19 2020-11-20 Completed [facility] PFIZER VACCINE 00:00:00 [facility] SARS-COV-2 COVID-19 2020-11-20 Completed [facility] PFIZER VACCINE 00:00:00 [facility] SARS-COV-2 COVID-19 2020-11-20 Completed [facility] PFIZER VACCINE 00:00:00 [facility] SARS-COV-2 COVID-19 2020-11-20 Completed [facility] PFIZER VACCINE 00:00:00 [facility] SARS-COV-2 COVID-19 2020-11-20 Completed [facility] PFIZER VACCINE 00:00:00 [facility] SARS-COV-2 COVID-19 2020-11-20 Completed [facility] PFIZER VACCINE 00:00:00 [facility] SARS-COV-2 COVID-19 2020-11-20 Completed [facility] of PFIZER VACCINE 00:00:00 [facility] SARS-COV-2 COVID-19 2020-11-20 Completed [facility] of PFIZER VACCINE 00:00:00 [facility] SARS-COV-2 COVID-19 2020-11-20 Completed [facility] PFIZER VACCINE 00:00:00 [facility] SARS-COV-2 COVID-19 2020-11-20 Completed [facility] PFIZER VACCINE 00:00:00 [facility] SARS-COV-2 COVID-19 2020-11-20 Completed [facility] of PFIZER VACCINE 00:00:00 [facility] SARS-COV-2 COVID-19 2020-11-20 Completed [facility] of PFIZER VACCINE 00:00:00 [facility] SARS-COV-2 COVID-19 2020-11-20 Completed [facility] of PFIZER VACCINE 00:00:00 [facility] SARS-COV-2 COVID-19 2020-11-20 Completed [facility] PFIZER VACCINE 00:00:00 [facility] SARS-COV-2 COVID-19 2020-11-20 Completed [facility] PFIZER VACCINE 00:00:00 [facility] SARS-COV-2 COVID-19 2020-11-20 Completed [facility] of PFIZER VACCINE 00:00:00 [facility] SARS-COV-2 COVID-19 2020-11-20 Completed [facility] PFIZER VACCINE 00:00:00 [facility] FluAD FluAD 2018-05-08 Completed [facility] 10:08:00 [facility] FluAD FluAD 2018-05-08 Completed [facility] 10[facility]08:00 [facility] FluAD FluAD 2018-05-08 Completed [facility] - 10:08:00 [facility] FluAD FluAD 2018-05-08 Completed [facility] - 10:08:00 [facility] FluAD FluAD 2018-05-08 Completed [facility] - 10:08:00 [facility] FluAD FluAD 2018-05-08 Completed [facility] 10[facility]08:00 [facility] FluAD FluAD 2018-05-08 Completed [facility] - 10:08:00 [facility] FluAD FluAD 2018-05-08 Completed [facility] - 10:08:00 [facility] FluAD FluAD 2018-05-08 Completed [facility] - 10:08:00 [facility] FluAD FluAD 2018-05-08 Completed [facility] - 10:08:00 [facility] FluAD FluAD 2018-05-08 Completed [facility] 10:08:00 [facility] FluAD FluAD 2018-05-08 Completed [facility] 10:08:00 [facility] FluAD FluAD 2018-05-08 Completed [facility] 00:00:00 [facility] Vital Signs Vital Name Observation Time Observation Value Comments Source Systolic blood 2023-04-07 16:29:00 115 mm[Hg] [facility] pressure [facility] Diastolic blood 2023-04-07 16:29:00 54 mm[Hg] [facility] pressure [facility] Heart rate 2023-04-07 16:29:00 58 /min [facility] Body temperature 2023-04-07 16:29:00 36.89 Marie [facility] Respiratory rate 2023-04-07 16:29:00 18 /min [facility] Oxygen saturation in 2023-04-07 16:29:00 96 /min [facility] Arterial blood by [facility] Pulse oximetry Branch Body weight 2023-04-07 08:24:00 49.47 kg [facility] BMI 2023-04-07 08:24:00 23.60 kg/m2 [facility] Body height 2023-04-06 19:32:00 144.8 cm [facility] Systolic blood 2023-03-07 15:50:00 155 mm[Hg] [facility] pressure [facility] Diastolic blood 2023-03-07 15:50:00 58 mm[Hg] [facility] pressure [facility] Heart rate 2023-03-07 15:43:00 57 /min [facility] Body temperature 2023-03-07 15:43:00 36.56 Marie [facility] Respiratory rate 2023-03-07 15:43:00 18 /min [facility] Body height 2023-03-07 15:43:00 144.8 cm [facility] Body weight 2023-03-07 15:43:00 46.72 kg [facility] BMI 2023-03-07 15:43:00 22.29 kg/m2 [facility] Oxygen saturation in 2023-03-07 15:43:00 99 /min [facility] Arterial blood by [facility] Pulse oximetry Branch Heart rate 2023-03-06 07:32:00 62 /min [facility] Oxygen saturation in 2023-03-06 07:32:00 98 /min [facility] Arterial blood by [facility] Pulse oximetry Branch Systolic blood 2023-03-06 07:00:00 162 mm[Hg] [facility] pressure [facility] Diastolic blood 2023-03-06 07:00:00 57 mm[Hg] [facility] pressure [facility] Respiratory rate 2023-03-06 07:00:00 17 /min [facility] Body temperature 2023-03-06 03:54:00 36.22 Marie [facility] Body height 2023-03-06 03:54:00 144.8 cm [facility] Body weight 2023-03-06 03:54:00 46.72 kg [facility] BMI 2023-03-06 03:54:00 22.29 kg/m2 [facility] Systolic blood 2023-02-12 17:31:00 166 mm[Hg] [facility] pressure [facility] Diastolic blood 2023-02-12 17:31:00 55 mm[Hg] [facility] pressure [facility] Heart rate 2023-02-12 17:31:00 60 /min [facility] Body temperature 2023-02-12 17:31:00 36.72 Marie [facility] Respiratory rate 2023-02-12 17:31:00 18 /min [facility] Body height 2023-02-12 17:31:00 147.3 cm [facility] Body weight 2023-02-12 17:31:00 47.628 kg [facility] BMI 2023-02-12 17:31:00 21.95 kg/m2 [facility] Oxygen saturation in 2023-02-12 17:31:00 99 /min [facility] Arterial blood by [facility] Pulse oximetry Branch Body weight 2022-12-19 12:32:00 46.72 kg [facility] BMI 2022-12-19 12:32:00 22.29 kg/m2 [facility] Body weight 2022-12-19 12:32:00 46.72 kg [facility] BMI 2022-12-19 12:32:00 22.29 kg/m2 [facility] Systolic blood 2022-11-16 13:53:00 114 mm[Hg] [facility] pressure [facility] Diastolic blood 2022-11-16 13:53:00 36 mm[Hg] [facility] pressure [facility] Heart rate 2022-11-16 13:53:00 59 /min [facility] Oxygen saturation in 2022-11-16 13:53:00 97 /min [facility] Arterial blood by [facility] Pulse oxim[facility] Branch Body temperature 2022-11-16 13:51:00 36.5 Marie [facility] Respiratory rate 2022-11-16 13:51:00 17 /min [facility] Body weight 2022-11-16 13:51:00 47.038 kg [facility] BMI 2022-11-16 13:51:00 22.44 kg/m2 [facility] Systolic blood 2022-10-13 15:08:00 138 mm[Hg] [facility] pressure [facility] Diastolic blood 2022-10-13 15:08:00 51 mm[Hg] [facility] pressure [facility] Heart rate 2022-10-13 15:08:00 55 /min [facility] Respiratory rate 2022-10-13 15:08:00 20 /min [facility] Body weight 2022-10-13 15:08:00 54.432 kg [facility] BMI 2022-10-13 15:08:00 25.97 kg/m2 [facility] Oxygen saturation in 2022-10-13 15:08:00 98 /min [facility] Arterial blood by [facility] Pulse oximetry Branch Systolic blood 2022-08-24 21:29:00 119 mm[Hg] [facility] pressure [facility] Diastolic blood 2022-08-24 21:29:00 50 mm[Hg] [facility] of pressure [facility] Heart rate 2022-08-24 21:29:00 71 /min [facility] Body temperature 2022-08-24 21:29:00 36.61 Marie [facility] Respiratory rate 2022-08-24 21:29:00 17 /min [facility] Body height 2022-08-24 21:29:00 144.8 cm [facility] Body weight 2022-08-24 21:29:00 46.267 kg [facility] BMI 2022-08-24 21:29:00 22.07 kg/m2 [facility] Oxygen saturation in 2022-08-24 21:29:00 98 /min [facility] Arterial blood by [facility] Pulse oximetry Branch Systolic blood 2022-08-20 03:00:00 114 mm[Hg] [facility] of pressure [facility] Diastolic blood 2022-08-20 03:00:00 53 mm[Hg] [facility] of pressure [facility] Heart rate 2022-08-20 03:00:00 70 /min [facility] Respiratory rate 2022-08-20 03:00:00 19 /min [facility] Oxygen saturation in 2022-08-20 03:00:00 95 /min [facility] Arterial blood by [place] [employer] [facility] Pulse oximetry Branch Body temperature 2022-08-20 00:44:00 36.61 Marie [facility] ersity of [facility] Body height 2022-08-20 00:44:00 144.8 cm [facility] Body weight 2022-08-20 00:44:00 46.267 kg [facility] BMI 2022-08-20 00:44:00 22.07 kg/m2 [facility] height 2022-08-11 08:40:00 57 [in_i] [facility] weight 2022-08-11 08:40:00 101.9 [lb_av] [facility] temperature 2022-08-11 08:40:00 97.1 [degF] [facility] bmi 2022-08-11 08:40:00 22.05 kg/m2 [facility] oximetry 2022-08-11 08:40:00 98 % [facility] respiratory rate 2022-08-11 08:40:00 16 /min [facility] blood pressure 2022-08-11 08:40:00 138 mm[Hg] [facility] systolic [facility] blood pressure 2022-08-11 08:40:00 63 mm[Hg] [facility] diastolic [facility] Systolic blood 2022-07-12 21:31:00 117 mm[Hg] Univer [facility]ity of [facility] Diastolic blood 2022-07-12 21:31:00 50 mm[Hg] Unive rsity of [facility] Heart rate 2022-07-12 21:31:00 67 /min [facility] ty [facility] Body temperature 2022-07-12 21:31:00 37.11 Marie [facility] Respiratory rate 2022-07-12 21:31:00 18 /min [facility] in 2022-07-12 21:31:00 97 /min University Arterial blood by [facility] Pulse oximetry Branch Body weight 2022-07-12 12:00:00 45.269 kg [facility] ty [facility] BMI 2022-07-12 12:00:00 22.37 kg/m2 [facility] Body height 2022-07-11 22:34:00 142.2 cm [facility] Body weight 2022-07-11 13:00:00 46.267 kg [facility] BMI 2022-07-11 13:00:00 22.37 kg/m2 [facility] Systolic blood 2022-04-18 16:25:00 125 mm[Hg] Un[facility]ity of [facility] Diastolic blood 2022-04-18 16:25:00 49 mm[Hg] Unive rsity of [facility] Heart rate 2022-04-18 16:25:00 58 /min [facility] Respiratory rate 2022-04-18 16:25:00 17 /min Univ [facility] of [facility] Oxygen saturation in 2022-04-18 16:25:00 95 /min [facility] Arterial blood by [facility] Pulse oximetry Branch Body weight 2022-04-18 14:00:00 45 kg [facility] BMI 2022-04-18 14:00:00 21.47 kg/m2 [facility] Systolic blood 2022-04-18 13:25:05 131 mm[Hg] Univer [facility]ity of [facility] Diastolic blood 2022-04-18 13:25:05 52 mm[Hg] Unive rsity of [facility] Respiratory rate 2022-04-18 13:25:05 13 /min Univ [facility] of [facility] Oxygen saturation in 2022-04-18 13:25:05 100 /min [facility] Arterial blood by [facility] Pulse oximetry Branch height 2022-03-09 09:30:00 57 [in_i] [facility] weight 2022-03-09 09:30:00 100 [lb_av] [facility] temperature 2022-03-09 09:30:00 98 [degF] [facility] bmi 2022-03-09 09:30:00 21.64 kg/m2 [facility] blood pressure 2022-03-09 09:30:00 142 mm[Hg] [facility] blood pressure 2022-03-09 09:30:00 75 mm[Hg] [facility] diastolic [facility] Diastolic blood 2022-03-06 13:40:00 60 mm[Hg] Unive rsity of [facility] Heart rate 2022-03-06 13:40:00 61 /min [facility] ty [facility] Oxygen saturation in 2022-03-06 13:40:00 99 /min [facility] Arterial blood by [facility] Pulse oximetry Branch Systolic blood 2022-03-06 13:40:00 157 mm[Hg] Univer [facility]ity of [facility] Body temperature 2022-03-06 13:39:00 36 Marie Univ [facility] Respiratory rate 2022-03-06 13:39:00 16 /min [facility] Body weight 2022-03-06 13:39:00 45.632 kg [facility] BMI 2022-03-06 13:39:00 21.77 kg/m2 [facility] height 2021-11-09 08:50:00 57 [in_i] Common [facility] weight 2021-11-09 08:50:00 99.3 [lb_av] Common [facility] temperature 2021-11-09 08:50:00 97.0 [degF] Common [facility] bmi 2021-11-09 08:50:00 21.49 kg/m2 [facility] oximetry 2021-11-09 08:50:00 95 % [facility] respiratory rate 2021-11-09 08:50:00 16 /min [facility] blood pressure 2021-11-09 08:50:00 138 mm[Hg] Common [facility] - systolic [facility] blood pressure 2021-11-09 08:50:00 77 mm[Hg] Common [facility] - diastolic [facility] height 2021-11-09 09:00:00 57 [in_i] [facility] weight 2021-11-09 09:00:00 99.3 [lb_av] Common [facility] temperature 2021-11-09 09:00:00 97 [degF] Common [facility] bmi 2021-11-09 09:00:00 21.49 kg/m2 [facility] oximetry 2021-11-09 09:00:00 95 % [facility] respiratory rate 2021-11-09 09:00:00 16 /min Comm on [facility] blood pressure 2021-11-09 09:00:00 138 mm[Hg] Common [facility] - systolic [facility] blood pressure 2021-11-09 09:00:00 77 mm[Hg] Common [facility] - diastolic [facility] height 2021-07-27 09:30:00 57 [in_i] Common [facility] weight 2021-07-27 09:30:00 100.4 [lb_av] [facility] temperature 2021-07-27 09:30:00 97.4 [degF] Common [facility] bmi 2021-07-27 09:30:00 21.72 kg/m2 [facility] oximetry 2021-07-27 09:30:00 99 % [facility] respiratory rate 2021-07-27 09:30:00 17 /min Comm on [facility] blood pressure 2021-07-27 09:30:00 134 mm[Hg] Common [facility] - systolic [facility] blood pressure 2021-07-27 09:30:00 62 mm[Hg] Common [facility] - diastolic [facility] height 2021-03-24 09:30:00 57 [in_i] Common [facility] weight 2021-03-24 09:30:00 104.2 [lb_av] [facility] temperature 2021-03-24 09:30:00 97.0 [degF] [facility] bmi 2021-03-24 09:30:00 22.55 kg/m2 [facility] oximetry 2021-03-24 09:30:00 98 % [facility] respiratory rate 2021-03-24 09:30:00 16 /min Comm on [facility] blood pressure 2021-03-24 09:30:00 136 mm[Hg] [facility] systolic [facility] blood pressure 2021-03-24 09:30:00 60 mm[Hg] [facility] diastolic [facility] Procedures Procedure Date / Time Performing Clinician Source Performed POCT GLUCOSE (AUTOMATED) 2023-04-07 17:16:[address] [facility] MAGNESIUM 2023-04-07 13:54:00 [facility] BASIC METABOLIC PANEL (NA, 2023-04-07 13:54:00 [facility], [facility] K, CL, CO2, GLUCOSE, BUN, [facility] CREATININE, CA) POCT GLUCOSE (AUTOMATED) 2023-04-07 13:53:00 Isaiah Zacarias [facility] CBC WITH DIFF 2023-04-07 10:42:00 [facility] POCT GLUCOSE (AUTOMATED) 2023-04-07 03:41:00 Isaiah Zacarias [facility] MAGNESIUM 2023-04-06 21:17:00 [facility], [facility] COMP. METABOLIC PANEL 2023-04-06 21:17:00 Hermelinda [facility] ([id number]) [facility] CBC WITHOUT DIFF 2023-04-06 21:17:00 [facility] POCT GLUCOSE (AUTOMATED) 2023-04-06 20:59:00 Isaiah Zacarias [facility] TROPONIN I 2023-03-06 06:33:00 Romeo Mendieta [facility] TROPONIN I 2023-03-06 04:15:00 Romeo Mendieta [facility] COMP. METABOLIC PANEL 2023-03-06 04:15:00 Romeo Mendieta [facility] ([id number]) [facility] CBC WITH DIFF 2023-03-06 04:15:00 Romeo Mendieta [facility] PROTHROMBIN TIME / INR 2023-03-06 04:15:00 Romeo Mendieta [facility] N-TERMINAL PRO-BNP 2023-03-06 04:15:00 Romeo Mendieta [facility] ASSIGNMENT OF BENEFITS 2023-02-12 18:46:38 [facility]REF[facility] FOR 2023-02-12 17:23:04 Doctor Jaylen [facility] DIAGNOSIS AND TREATMENT [facility] ELECTROPHYSIOLOGY PROCEDURE 2022-12-19 12:49:49 Brandon Arias [facility] ELECTROPHYSIOLOGY PROCEDURE 2022-12-19 12:49:00 Brandon Arias [facility] DISCLOSURE AND CONSENT, 2022-12-19 05:01:00 Doctor Monetsssilvia [facility] MEDICAL AND SURGICAL [facility] PROCEDURES MEDICAL RELEASE/CLEARANCE 2022-09-12 06:01:00 Doctor Jaylen, [facility] FORMS [facility] EKG-12 LEAD 2022-08-20 04:31:50 Romeo Mendieta [facility] XR CHEST 1 VW 2022-08-20 03:29:01 Romeo Mendieta [facility] TROPONIN I 2022-08-20 01:57:00 Romeo Mendieta [facility] COMP. METABOLIC PANEL 2022-08-20 01:57:00 Romeo Mendieta [facility] ([id number]) [facility] CBC WITH DIFF 2022-08-20 01:57:00 Romeo Mendieta [facility] URINALYSIS 2022-08-20 01:57:00 Romeo Mendieta [facility] CONSENT/REFUSAL FOR 2022-08-20 00:38:57 Doctor York [facility] DIAGNOSIS AND TREATMENT [facility] POCT GLUCOSE (AUTOMATED) 2022-07-12 18:27:[address] [facility] POCT GLUCOSE (AUTOMATED) 2022-07-12 18:27:00 [facility] TRANSTHORACIC ECHO (TTE) 2022-07-12 16:00:03 [facility] COMPLETE W/ CONTRAST [facility] TRANSTHORACIC ECHO (TTE) 2022-07-12 16:00:03 [facility] COMPLETE W/ CONTRAST [facility] POCT GLUCOSE (AUTOMATED) 2022-07-12 14:55:00 [facility] POCT GLUCOSE (AUTOMATED) 2022-07-12 14:55:[address] [facility] HB ECG ROUTINE & RHYTHM 2022-07-12 13:59:42 [facility] MAGNESIUM 2022-07-12 10:37:00 [facility] BASIC METABOLIC PANEL (NA, 2022-07-12 10:37:00 [facility] K, CL, CO2, GLUCOSE, BUN, [facility] CREATININE, CA) LIPID PANEL ([id number])(TOTAL 2022-07-12 10:37:00 [facility] CHOLESTEROL, TRIGLYCERIDES, [facility] HDL) CBC WITH DIFF 2022-07-12 10:37:00 [facility] MAGNESIUM 2022-07-12 10:37:00 [facility] BASIC METABOLIC PANEL (NA, 2022-07-12 10:37:[address] [facility] K, CL, CO2, GLUCOSE, BUN, [facility] CREATININE, CA) LIPID PANEL ([id number])(TOTAL 2022-07-12 10:37:00 [facility] CHOLESTEROL, TRIGLYCERIDES, [facility] HDL) CBC WITH DIFF 2022-07-12 10:37:00 [facility] GLYCOSYLATED HEMOGLOBIN 2022-07-12 10:37:00 [facility] (A1C) [facility] POCT GLUCOSE (AUTOMATED) 2022-07-12 03:46:00 Pardeep [facility]osta [facility] POCT GLUCOSE (AUTOMATED) 2022-07-12 03:46:00 [facility] POCT GLUCOSE (AUTOMATED) 2022-07-12 00:08:00 [facility] POCT GLUCOSE (AUTOMATED) 2022-07-12 00:08:00 [facility] POCT GLUCOSE (AUTOMATED) 2022-07-11 21:30:[address] [facility] POCT GLUCOSE (AUTOMATED) 2022-07-11 21:30:00 Naga Lakhani [facility] CARDIAC CATHETERIZATION 2022-07-11 16:32:26 Naomy Bravo [facility] CARDIAC CATHETERIZATION 2022-07-11 16:32:26 Naomy Bravo [facility] CARDIAC CATHETERIZATION 2022-07-11 16:32:26 Naomy Bravo [facility] CATH PROCEDURE LOG 2022-07-11 15:12:31 [facility] CATH PROCEDURE LOG 2022-07-11 15:12:31 Naomy Bravo [facility] COMP. METABOLIC PANEL 2022-07-07 15:55:00 Naomy Bravo Un [facility] ([id number]) [facility] CBC WITH DIFF 2022-07-07 15:55:00 [facility] PROTHROMBIN TIME / INR 2022-07-07 15:55:00 Naomy Bravo U [facility] ACTIVATED PARTIAL THRMPLAS 2022-07-07 15:55:00 Naomy Bravo [facility] N-TERMINAL PRO-BNP 2022-07-07 15:55:00 [facility] CARDIAC CATHETERIZATION 2022-04-18 14:01:40 Naomy Bravo [facility] CARDIAC CATHETERIZATION 2022-04-18 14:01:40 Naomy Bravo [facility] OUTPATIENT CARDIAC 2022-04-18 05:01:00 Doctor Unassigned, [facility] CATHETERIZATION DOCUMENTS [facility] Encounters Start End Encounter Admission Attending Care Care Encounter Source Date/Time Date/Time Type Type Clinicians Facility Department ID 2022-08-10 [facility] [id number] Common 09:04:01 [facility] [address] [facility] 2022-08-08 Outpatient Parra, STLMLC STLMLC [id number] Common 09:10:00 Cydney 52500 [facility] 2022-07-06 Outpatient Parra, STLMLC STLMLC [id number] Common 15:20:00 Cydney 39814 [facility] 2022-03-23 Outpatient R ROYAL, [facility] [id number] Univers 14:15:57 MACRINA miller [facility] 2021-08-17 Outpatient Parra, STLMLC STLMLC [id number] Common 14:33:36 Cydney [facility] 2021-08-17 Outpatient Parra, STLMLC STLMLC [id number] Common 12:59:39 Cydney [facility] 2021-08-17 Outpatient Parra, STLMLC STLMLC [id number] Common 12:59:09 Cydney 65013 [facility] 2021-08-17 Outpatient Parra, STLMLC STLMLC [id number] Common 12:25:40 Cydney 28431 [facility] 2021-08-17 Outpatient Parra, STLMLC STLMLC [id number] Common 12:11:56 Cydney 16030 [facility] 2021-08-17 Outpatient Parra, STLMLC STLMLC [id number] Common 11:21:41 Cydney 16833 [facility] 2021-08-17 Outpatient Parra, STLMLC STLMLC [id number] Common 11:16:02 Cydney 58748 [facility] 2021-08-17 Outpatient Parra, STLMLC STLMLC [id number] Common 11:07:32 Cydney 02624 [facility] 2021-08-17 Outpatient Parra, STLMLC STLMLC [id number] Common 11:07:20 Cydney 83969 [facility] 2021-08-17 Outpatient Parra, STLMLC STLMLC [id number] Common 11:06:39 Cydney 03839 [facility] 2021-05-[address] [facility] [id number] Univers 00:00:12 ity of [facility] 2023-04-20 2023-04-20 Outpatient R BRAVO [facility] [id number] Univers 10:00:00 10:00:00 SENDIL ity [facility] 2023-04-06 2023-04-07 Outpatient R GENEVIEVE [facility] [id number] Univers 06:31:00 15:40:00 MOSTAFA ity [facility] 2023-04-06 2023-04-07 [facility] Naga Lakhani 1.2.840.114 [id number] Univers 06:31:00 15:40:00 Encounter Isaiah Zacarias 350.1.13.10 ity of Yvonne Hazel [facility]win [facility] 4.2.7.2.686 [place] [id number] [facility] 090 Branch 2023-03-30 2023-03-30 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 1, Adc Lab [facility] 1.2.840.114 [id number] Univers 10:15:00 10:30:00 Visit Griffin Fernandes 350.1.13.10 ity [facility] 4.2.7.2.686 [facility] [phone] [facility] 353 Branch 2023-03-30 2023-03-30 [facility] [id number] Univers 10:15:00 10:15:00 GRIFFIN miller [facility] 2023-03-28 2023-03-28 Patient Lawrence [facility] 1.2.840.114 [id number] Univers 00:00:00 00:00:00 Secure Msg Sendil Skyla LUCIANO 350.1.13.10 ity [facility] 4.2.7.2.686 [facility] [phone] [facility]59 [facility] 2023-03-14 2023-03-14 Telephone Unassigned, STANISLAV 1.2.840.114 [id number] Univers 00:00:00 00:00:00 Cath/Ep KOREY 350.1.13.10 it y of [facility] 4.2.7.2.686 Cr as [phone] [facility] 840 Branch 2023-03-07 2023-03-07 Outpatient R [address] [facility] [id number] Univers 10:30:00 11:29:01 SENDIL ity [facility] 2023-03-07 2023-03-07 [facility] 1.2.840.114 [id number] Univers 10:30:00 11:29:01 Visit Sendellie LUCIANO 350.1.13.10 ity of [place] [phone] Oh dical [facility] 059 [facility] 2023-03-05 2023-03-06 Emergency X [facility] ERT [id number] Univers 22:57:00 02:35:00 MSSARA y [facility] 2023-03-05 2023-03-06 Emergency [facility] 1.2.738.622 [id number] Univers 22:57:00 02:35:00 Romeo LUCIANO 350.1.13.10 it[place] [phone] [facility] 0[address] [place] 2023-03-06 2023-03-06 Telephone ARSENIO Bravo 1.2.298.369 [id number] Univers 00:00:00 00:00:00 Sendellie NAIR 350.1.13.10 ity [facility] 4.2.7.2.686 Cr as [phone] [facility] 008 Branch 2023-02-12 2023-02-12 Emergency [facility] E[facility] [id number] Univers 12:32:00 14:30:00 MARY [facility] 2023-02-12 2023-02-12 Emergency [facility] 1.2.840.114 [id number] Univers 12:32:00 14:30:00 Mary LUCIANO 350.1.13.10 i ty of [place] [phone] [facility] [address] [place] 2023-02-12 2023-02-12 Outpatient R [facility] [id number] Univers 10:00:00 10:00:00 SENDIL ity of Surgery [facility] 2023-01-02 2023-01-02 [address]GO [facility] [id number] Univers 13:03:41 23:59:00 BRANDON ity [facility] 2023-01-02 2023-01-02 Hospital STANISLAV Arias 1.2.840.114 [id number] Univers 13:03:41 23:59:00 Encounter Brandon KOREY 350.1.13.10 ity of [place] [address].2.7.2.686 Cr as [phone] [facility] [address] [place] 2022-12-20 2022-12-20 Patient Lawrence [facility] 1.2.840.114 [id number] Univers 00:00:00 00:00:00 Secure Msg Sendellie LUCIANO 350.1.13.10 ity [place] [address].[place] [phone] Oh dical [facility] 059 Branch [facility] 2022-12-19 2022-12-19 Surgery STANISLAV Arias 1.2.840.114 [id number] Univers 12:00:00 12:45:00 Brandon KOREY 350.1.13.10 it y of [place] [address].2.7.2.686 Rc as [phone] [facility] [address] [place] 2022-12-19 2022-12-19 Outpatient R HUGO [facility] CCA [id number] Univers 06:19:00 09:46:00 BRANDON ity of Surgery [facility] 2022-12-19 2022-12-19 [facility] STANISLAV Arias 1.2.840.114 [id number] Univers 06:19:00 09:46:00 Encounter Brandon KOREY 350.1.13.10 ity of [address]686 Cr as [phone] [facility] [address] [place] 2022-12-19 2022-12-19 Orders Doctor CESAR 1.2.840.114 [id number] Univers 00:00:00 00:00:00 Only Unassigned, KOREY 350.1.13.10 ity of [facility] 4.2.7.2.686 Cr as [phone] [facility] 009 Branch 2022-12-15 2022-12-15 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 Bassem Haile Lab Main [facility] 1.2.8 40.114 [id number] Univers 10:00:00 10:15:00 Visit Naomy Bravo 350.1.13. 10 ity of [place] [phone] Oh dicwy NAL 353 [facility] 2022-12-15 2022-12-15 Outpatient R [facility] [id number] Univers 10:00:00 10:00:00 SENDIL ity [facility] 2022-12-05 2022-12-05 Telephone Lawrence [facility] 1.2.808.619 [id number] Univers 00:00:00 00:00:00 Sendellie LUCIANO 350.1.13.10 ity of [place] [phone] Oh dicwy NAL 059 [facility] 2022-11-16 2022-11-16 Office [facility] 1.2.840.114 [id number] Univers 09:00:00 09:20:00 Visit Brandonkevin LUCIANO 350.1.13.10 i ty of [place] [phone] Oh dicwy NAL 059 [facility] 2022-11-16 2022-11-16 Outpatient R HUGO [facility] [id number] Univers 09:00:00 09:00:00 BRANDON ity [facility] 2022-11-16 2022-11-16 Telephone STANISLAV Arias 1.2.524.177 [id number] Univers 00:00:00 00:00:00 Brandon KOREY 350.1.13.10 it y of [facility] 4.2.7.2.686 Cr as [phone] [facility] 840 Branch 2022-10-20 2022-10-20 Outpatient R [facility] [id number] Univers 10:00:00 10:00:00 SENDIL ity [facility] 2022-10-13 2022-10-13 Outpatient R [facility] [id number] Univers 10:00:00 10:36:05 SENDIL ity [facility] 2022-10-13 2022-10-13 Office Lawrence [facility] 1.2.840.114 [id number] Univers 10:00:00 10:36:05 Visit Sendil Skyla LUCIANO 350.1.13.10 ity of [place] [phone] Oh dical NAL 9 [facility] 2022-10-02 2022-10-02 Telephone Lawrence [facility] 1.2.129.212 [id number] Univers 00:00:00 00:00:00 Sendil Skyla LUCIANO 350.1.13.10 ity of [place] [phone] Oh dical NAL [address] [place] [address] 2022-09-12 2022-09-12 Orders Doctor ARSENIO 1.2.840.114 [id number] Univers 00:00:00 00:00:00 Only Unassigned, KOREY 350.1.13.10 ity of [facility] 4.2.7.2.686 Cr as [phone] [address] 2022-09-08 2022-09-08 Outpatient R [facility] [id number] Univers 09:30:00 09:30:00 SENDIL ity [facility] 2022-09-08 2022-09-08 [facility] [id number] Univers 09:30:00 09:30:00 SENDIL ity [facility] 2022-09-08 2022-09-08 Patient Lawrence [facility] 1.2.840.114 [id number] Univers 00:00:00 00:00:00 Secure Msg Sendil Skyla LUCIANO 350.1.13.10 ity of [place] [phone] Oh dical NAL 059 [facility] 2022-08-24 2022-08-24 [facility] [id number] Univers 08:30:00 23:59:00 SENDIL ity [facility] 2022-08-24 2022-08-24 [facility] 1.2.840.114 [id number] Univers 15:30:00 16:20:54 Visit Sendellie LUCIANO 350.1.13.10 ity of [facility] 4[place] [phone] Oh dical NAL 9 [facility] 2022-08-21 2022-08-21 Patient [facility] 1.2.840.114 [id number] Univers 00:00:00 00:00:00 Secure Msg Sendellie LUCIANO 350.1.13.10 ity of [facility] 4[place] [phone] Oh dicwy NAL [address] [place] [address] 2022-08-19 2022-08-19 Emergency X [facility] ERT [id number] Univers 18:46:00 22:45:00 [facility] 2022-08-19 2022-08-19 Emergency [facility] 1.2.703.955 [id number] Univers 18:46:00 22:45:00 Washubhamli S [place] 350.1.13.10 ity of [place] [phone] [facility] 084 Branch 2022-08-11 2022-08-11 OFFICE STLMLC STLC [id number] Co mmon 00:00:00 00:00:00 VISIT Spirit ESTAB PT - CHI LEVEL 4 [facility] 2022-07-11 2022-07-12 Outpatient R PARDEEP ACOSTA [facility] 1 [id number] Univers 07:09:00 17:04:00 PARDEEP ACOSTA itumang [facility] 2022-07-11 2022-07-12 [facility] Naga Lakhani 1.2.840.114 [id number] Univers 07:09:00 17:04:00 Encounter Devon Hatch KOREY 350.1. 13.10 ity of [facility] 4.2.7.2.686 [place] [phone] [facility] [address] [place] 2022-07-11 2022-07-11 Surgery Naga Lakhani 1.2.840.114 [id number] Univers 05:05:00 07:05:00 N KOREY 350.1.13.10 it y of [facility] 4.2.7.2.686 Cr as [phone] [facility] [address] [place] 2022-07-10 2022-07-10 Telephone [facility] 1.2.697.870 [id number] Univers 00:00:00 00:00:00 Naomy LUCIANO 350.1.13.10 ity of [place] [phone] Oh dical NAL 059 [facility] 2022-07-07 2022-07-07 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 Mic, Adc Lab Main [facility] 1.2.8 40.114 [id number] Univers 11:00:00 11:15:00 Visit Griffin Fernandes 350.1.13.10 ity of [place] [phone] Oh dical NAL 353 [facility] 2022-07-07 2022-07-07 Outpatient R [address] [facility] [id number] Univers 11:00:00 11:00:00 GRIFFIN miller [facility] 2022-06-26 2022-06-26 Patient [facility] 1.2.840.114 [id number] Univers 00:00:00 00:00:00 Secure Msg Naomy LUCIANO 350.1.13.10 ity of [place] [phone] Oh dical NAL 059 [facility] 2022-06-23 2022-06-23 Telephone Naga Lakhani 1.2.840.114 [id number] Univers 00:00:00 00:00:00 N KOREY 350.1.13.10 it y of [facility] 4.2.7.2.686 Cr as [phone] [facility] 8[address] 2022-06-14 2022-06-14 (TEL) STLMLC STLMLC [id number] Co mmon 00:00:00 00:00:00 [facility] 2022-06-14 2022-06-14 [facility] 1.2.840.114 [id number] Univers 00:00:00 00:00:00 Secure Msg Naomy LUCIANO 350.1.13.10 ity of [place] [id number] Oh dicwy NAL [address] [place] [address] 2022-06-13 2022-06-13 [facility] 1.2.221.491 [id number] Univers 00:00:00 00:00:00 Naomy LUCIANO 350.1.13.10 ity of [place] [phone] Oh dicwy NAL [address] [place] [address] 2022-04-26 2022-04-26 [facility] 1.2.840.114 [id number] Univers 00:00:00 00:00:00 Secure Msg Naomy LUCIANO 350.1.13.10 ity of [place] [phone] Oh dicwy NAL [address] [place] [address] 2022-04-19 2022-04-19 Telephone [facility] 1.2.126.811 [id number] Univers 00:00:00 00:00:00 Naomy LUCIANO 350.1.13.10 ity of [place] [phone] [address] 2022-04-18 2022-04-18 Outpatient R [facility]ENCE [facility] [id number] Univers 06:18:00 12:18:00 SENDIL ity of Surgery [facility] 2022-04-18 2022-04-18 Hospital STANISLAV Bravo 1.2.840.114 [id number] Univers 06:18:00 12:18:00 Encounter Naomy NAIR 350.1.13.10 ity of HOSPITAL 4.2.7.2.686 Cr as [phone] [facility] [address] 2022-04-18 2022-04-18 Surgery Naga Lakhani 1.2.840.114 [id number] Univers 07:30:00 08:30:00 N KOREY 350.1.13.10 it y of HOSPITAL 4.2.7.2.686 Cr as [phone] [facility] [address] 2022-04-18 2022-04-18 Telephone Lawrence [facility] [id number] Univers 00:00:00 00:00:00 Naomy LUCIANO 350.1.13.10 ity [place] [phone] Oh dical NAL [address] [facility] 2022-04-18 2022-04-18 Orders Doctor ARSENIO [id number] [id number] Univers 00:00:00 00:00:00 Only Unassigned, KOREY 350.1.13.10 ity of [place] [facility] 4.2.7.2.686 Cr as [phone] [facility] [address] 2022-04-14 2022-04-14 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 1, Adc Lab [facility] 1.2.840.114 [id number] Univers 10:45:00 11:00:00 Visit Naomy Bravo 350.1.13. 10 ity of [facility] [place] [phone] [facility] [address] 2022-04-14 2022-04-14 Laboratory Only, Adc Test [facility] 1.2.840. 114 [id number] Univers 10:30:00 10:45:00 Only Naomy Bravo 350.1.13. 10 ity of [facility] [place] [phone] [facility] [address] 2022-04-14 2022-04-14 Outpatient R [facility] [id number] Univers 10:30:00 10:30:00 SENDIL ity of [facility] 2022-04-03 2022-04-03 Telephone UnasssilviaSTANISLAV 1.2.840.114 [id number] Univers 00:00:00 00:00:00 Cath/Ep KOREY 350.1.13.10 it y of [facility] 4.2.7.2.686 Cr as [phone] [facility] [address] [place] 2022-03-31 2022-03-31 [facility]phone [facility] 1.2.101.281 [id number] Univers 00:00:00 00:00:00 Sendil Skyla LUCIANO 350.1.13.10 ity of [place] [phone] [place] 816869 [facility] 2022-03-30 2022-03-30 [facility] 1.2.840.114 [id number] Univers 10:50:03 23:59:00 Encounter Argelia R[place]HT[place] 350.1.13.10 ity of [place] [phone] [facility] [address] 2022-03-30 2022-03-30 [facility] 1.2.840.114 [id number] Univers 10:49:00 10:49:00 Encounter Argelia [place] 350.1.13.10 ity of [facility] [place] [id number] [address] 2022-03-30 2022-03-30 [facility] 1.2.840.114 [id number] Univers 10:47:59 10:48:00 Encounter Argelia [place] 350.1.13.10 ity of [place] [id number] [address] 2022-03-30 2022-03-30 [facility] [id number] Univers 10:46:03 10:46:03 ARGELIA fortuney o f [facility] 2022-03-30 2022-03-30 [facility] 1.2.840.114 [id number] Univers 10:46:03 10:46:03 Encounter Argelia LUCIANO 350.1.13.10 ity of [place] 4.2.7.2.686 [facility] [phone] [facility] [address] [place] 2022-03-30 2022-03-30 Orders Doctor ARSENIO 1.2.840.114 [id number] Univers 00:00:00 00:00:00 Only Unassigned, KOREY 350.1.13.10 ity of [place] [facility] 4.2.7.2.686 Rc [phone] [facility] [address] 2022-03-29 2022-03-29 [facility] 1.2.840.114 [id number] Univers 08:36:31 23:59:00 Encounter Argelia LUCIANO 350.1.13.10 ity of [place] 4.2.7.2.686 [facility] [phone] [facility] [address] 2022-03-23 2022-03-23 [address] Elis PA[address]E [facility] [id number] Univers 13:00:00 13:29:17 MACRINA [facility] 2022-03-09 2022-03-09 [facility] [id number] Co mmon 00:00:00 00:00:00 VISIT William ARVIZU PT - CHI LEVEL 4 [facility] 2022-03-07 2022-03-07 Outpatient Elis MCDOWELL [facility] [id number] Univers 11:00:00 11:00:00 ARGELIA miller o [facility] 2022-03-07 2022-03-07 Outpatient Elis [facility]LL [facility] [id number] Univers 00:00:00 00:00:00 ARGELIA miller o f [facility] 2022-03-06 2022-03-06 Outpatient Elis BRAVO [facility] [id number] Univers 08:30:00 08:53:33 SENDELLIE umang [facility] 2022-03-06 2022-03-06 Outpatient Elis BRAVO [facility] [id number] Univers 08:30:00 08:53:33 SENDIL ity [facility] 2022-03-06 2022-03-06 [facility] 1.2.840.114 [id number] Univers 08:30:00 08:53:33 Visit Sendellie LUCIANO 350.1.13.10 ity [facility] [place] [phone] [address] 2022-03-06 2022-03-06 [facility] [id number] Univers 08:30:00 08:30:00 SENDIL [facility] 2022-02-28 2022-02-28 [facility] [id number] Univers 00:00:00 00:00:00 [facility] 2022-02-28 2022-02-28 [facility] [id number] Univers 00:00:00 00:00:00 [facility] 2022-02-27 2022-02-27 Telephone [facility] 1.2.487.547 [id number] Univers 00:00:00 00:00:00 Naomy LUCIANO 350.1.13.10 ity [facility] [place] [id number] [address] 2022-02-14 2022-02-14 [facility] [id number] Co mmon 00:00:00 00:00:00 [facility] 2022-01-26 2022-01-26 (TEL) STLMLC STLMLC [id number] Co mmon 00:00:00 00:00:00 [facility] 2022-01-20 2022-01-20 Outpatient R JEREMIAS, [facility] [id number] Univers 08:00:00 08:01:00 HEBERDMITRI kay [facility] 2022-01-20 2022-01-20 [facility] [id number] Univers 08:00:00 08:00:00 ARGELIA miller o f [facility] 2021-12-27 2021-12-27 Outpatient R JEREMIAS, [facility] [id number] Univers 08:40:00 09:34:30 ARGELIA kay f [facility] 2021-12-27 2021-12-27 Office [facility] 1.2.840.114 [id number] Univers 08:40:00 09:34:30 Visit Argelia LUCIANO 350.1.13.10 ity of [place] [id number] Oh dical NAL [address] [place] [address] 2021-12-27 2021-12-27 Orders Doctor ARSENIO 1.2.840.114 [id number] Univers 00:00:00 00:00:00 Only Unassigned, KOREY 350.1.13.10 ity of [place] [facility] 4.2.7.2.686 Cr as [id number] [address] 2021-12-26 2021-12-26 (TEL) STLMLC STLMLC [id number] Co mmon 00:00:00 00:00:00 Spirit - CHI [facility] 2021-12-26 2021-12-26 Telephone [facility] 1.2.928.390 [id number] [facility] 00:00:00 00:00:00 Naomy LUCIANO 350.1.13.10 ity of [place] [phone] Oh dical NAL [address] [place] [address] 2021-11-09 2021-11-09 (TEL) STLMLC STLMLC [id number] Co mmon 00:00:00 00:00:00 Spirit - [facility] 2021-11-09 2021-11-09 OFFICE STLMLC STLMLC [id number] Co mmon 00:00:00 00:00:00 VISIT Spirit ESTAB PT - CHI LEVEL 4 [facility] 2021-11-09 2021-11-09 SUB ANNUAL STLMLC STLMLC [id number] Common 00:00:00 00:00:00 MCR Spirit WELLNESS - CHI VISIT [facility] 2021-09-28 2021-09-28 Outpatient R [facility] [id number] Univers 10:00:00 10:00:00 SENDIL ity [facility] 2021-09-13 2021-09-13 Telephone Lawrence [facility] 1.2.417.102 [id number] Univers 00:00:00 00:00:00 Sendil Skyla LUCIANO 350.1.13.10 ity of [place] [phone] Oh dical [facility] 059 [facility] 2021-09-13 2021-09-13 Orders Doctor ARSENIO 1.2.840.114 [id number] Univers 00:00:00 00:00:00 Only Unassigned, KOREY 350.1.13.10 ity of [place] [facility] 4.2.7.2.686 Cr as [phone] [facility] [address] 2021-08-01 2021-08-01 (TEL) STLMLC STLMLC [id number] Co mmon 00:00:00 00:00:00 [facility] 2021-07-27 2021-07-27 OFFICE STLMLC STLMLC [id number] Co mmon 00:00:00 00:00:00 VISIT Spirit ESTAB PT - CHI LEVEL 4 [facility] 2021-07-20 2021-07-20 Outpatient R [facility] [id number] Univers 10:00:00 10:00:00 SENDIL ity [facility] 2021-07-05 2021-07-05 Transition PATSY Hanley 1.2.840.114 [id number] Univers 00:00:00 00:00:00 of Care Marly SALCIDO 350.1.13.10 it y of [place] [id number] [facility] [address] 2021-07-03 2021-07-04 Outpatient X FRANDY [facility] LALA [id number] Univers 17:13:00 15:09:00 WALTER itumang [facility] 2021-07-03 2021-07-04 Emergency Nicolas Franco [facility] 1.2.840. 114 [id number] Univers 17:13:00 15:09:00 Romeo Mendieta MUSTAPHA 350.1.13.10 ity of [facility] 4.2.7.2.686 [facility] [phone] [place] 181051 [place] 2021-03-31 2021-03-31 Office [facility] 1.2.840.114 [id number] Univers 09:45:34 10:32:15 Visit Naomy Luciano 350.1.13.10 ity [place] 4.2.7.2.686 [facility] [phone] Oh dic[address] 2021-03-31 2021-03-31 [facility] [id number] Univers 10:00:00 10:00:00 [facility] 2021-03-24 2021-03-24 OFFICE STLMLC STLMLC [id number] Co mmon 00:00:00 00:00:00 VISIT [facility] ESTAB PT - CHI LEVEL 4 [facility] 2021-01-03 2021-01-[address] [facility] [id number] Univers 10:00:00 10:00:00 [facility] 2020-12-28 2020-12-28 Emergency [facility] 1.2.622.494 [id number] Univers 20:21:00 23:40:00 Yanely Luciano 350.1.13.10 i ty [place] 4.2.7.2.686 [facility] [phone] [place] 181054 [place] 2020-12-27 2020-12-27 Outpatient STLMLC STLMLC [id number] Common 00:00:00 00:00:00 Spirit - [facility] 2020-12-16 2020-12-16 Outpatient STLMLC STLMLC [id number] Common 00:00:00 00:00:00 Spirit [facility] 2020-12-13 2020-12-13 [facility] [id number] Univers 10:20:00 10:26:15 RAE [facility] 2020-12-09 2020-12-09 Outpatient STLMLC STLMLC [id number] Common 00:00:00 00:00:00 [facility] 2020-12-03 2020-12-03 Outpatient STLMLC STLMLC [id number] Common 00:00:00 00:00:00 [facility] 2020-11-24 2020-11-24 Outpatient STLMLC STLMLC [id number] Common 00:00:00 00:00:00 [facility] 2020-11-24 2020-11-24 Outpatient STLMLC STLMLC [id number] Common 00:00:00 00:00:00 [facility] 2020-11-20 2020-11-[address] [facility] [id number] Univers 11:45:00 12:11:11 RAE [facility] 2020-09-23 2020-09-23 Office [facility] 1.2.840.114 [id number] Univers 11:12:49 11:58:33 Visit Naomy Luciano 350.1.13.10 ity [facility] 4.2.7.2.686 [facility] [phone] Oh dical [facility]9 [facility] 2020-09-23 2020-09-23 Outpatient Elis BRAVO [facility] [id number] Univers 11:30:00 11:30:00 SENDIL [facility] 2020-08-03 2020-08-03 Emergency [facility] 1.2.840.114 [id number] Univers 11:25:00 14:25:00 Alexsander Luciano 350.1.13.10 i ty [facility] 4.2.7.2.686 [place] [phone] [address] 2020-08-03 2020-08-03 Emergency [facility] ERT [id number] Univers 11:25:00 14:25:00 [facility] 2020-07-06 2020-07-06 Office [facility] 1.2.840.114 [id number] Univers 09:14:07 10:40:28 Visit Emilia Luciano 350.1.13.10 ity of [place] [phone] Oh dical nal 205 [facility] 2020-07-06 2020-07-06 [facility] [id number] Univers 09:15:00 09:15:00 EMILIA brown [facility] 2020-06-29 2020-06-29 Outpatient STLMLC STLMLC [id number] Common 00:00:00 00:00:00 [facility] 2020-03-25 2020-05-23 Office [facility] 1.2.840.114 [id number] Univers 11:26:28 00:15:09 Visit Naomy Luciano 350.1.13.10 ity of [place]2.[place] [phone] Oh dical nal 059 [facility] 2020-05-21 2020-05-[address] [facility] [id number] Univers 09:30:00 09:30:00 ity of [facility] 2020-05-21 2020-05-21 Orders Doctor ARSENIO 1.2.840.114 [id number] Univers 00:00:00 00:00:00 Only Unassigned, KOREY 350.1.13.10 ity of [place] [facility] 4.2.7.2.686 Cr as [id number] [address] 2020-05-18 2020-05-18 Outpatient R YEYO GODFREY [facility] [id number] Univers 11:20:00 11:20:00 YEYO GODFREY itumang of [facility] 2020-05-14 2020-05-14 Outpatient R JEREMIAS [facility] [id number] Univers 10:00:00 10:00:00 ARGELIA brown [facility] 2020-05-11 2020-05-11 Telephone [facility] 1.2.542.729 [id number] Univers 00:00:00 00:00:00 Naomy Luciano 350.1.13.10 ity of [place] [id number] Oh dical nal 059 [facility] 2020-03-30 2020-03-30 Orders Doctor ARSENIO 1.2.840.114 [id number] Univers 00:00:00 00:00:00 Only Unassigned, KOREY 350.1.13.10 ity of [place] [facility] 4.2.7.2.686 Cr as [phone] [address] 2020-03-25 2020-03-25 Outpatient R LAWRENCE [facility] [id number] Univers 11:30:00 11:30:00 SENDIL ity [facility] 2020-03-03 2020-03-03 Outpatient [facility] [id number] Common 10:45:00 10:45:00 Etaphase [facility] it [facility] 2020-01-22 2020-01-22 [facility] [id number] Univers 09:30:00 09:30:00 SENDIL ity [facility] 2019-12-04 2019-12-04 Shell [facility] 1.2.715.994 [id number] Univers 00:00:00 00:00:00 Sendil Skyla Luciano 350.1.13.10 ity of [place] [phone] Oh dical nal 9 [facility] 2019-12-03 2019-12-03 Outpatient [facility] [id number] Common 11:15:00 11:15:00 Gobble [facility] it [facility] 2019-06-23 2019-12-02 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 Tech, Adc Cardio Fac [facility] 1. 2.840.114 [id number] Univers 07:57:28 19:39:27 Visit 2, Adc Cardio Fac Room [place] 350.1. 13.10 ity of [place]ia [place] 4.2.7.2.686 [place] Professio [phone] Oh dical nal 059 [facility] 2019-12-02 2019-12-02 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 Pc, Adc Vascular Room 1 - [facility] 1.2.840.114 [id number] Univers 15:41:56 16:28:44 Visit Argelia [place]ton 350.1.13.10 ity of [place].2.[place] [id number] Oh dical nal 9 [facility] 2019-12-02 2019-12-[address] [facility] [id number] Univers 16:00:00 16:00:00 ity of [facility] 2019-09-11 2019-10-17 Office [facility] 1.2.840.114 [id number] Univers 07:52:01 00:36:19 Visit Argelia Mustapha 350.1.13.10 ity of [place] [phone] Oh dic[address] 2019-10-17 2019-10-17 Telephone [facility] 1.2.000.709 [id number] Univers 00:00:00 00:00:00 Naomy Luciano 350.1.13.10 it[place] of [place] [phone] Oh dicwy nal [address] [place] [address] 2019-09-10 2019-09-11 [facility] [id number] Univers 09:40:00 07:52:23 ARGELIA itumang o f [facility] 2019-09-10 2019-09-10 Orders Doctor ARSENIO 1.2.840.114 [id number] Univers 00:00:00 00:00:00 Only Unassigned, KOREY 350.1.13.10 ity of [place] [facility] 4.2.7.2.686 Cr as [phone] [address] 2019-09-05 2019-09-05 Telephone [facility] 1.2.290.989 [id number] Univers 00:00:00 00:00:00 Naomy Luciano 350.1.13.10 ity of [place]2.[place] [phone] Oh dicwy nal 9 [facility] 2019-09-04 2019-09-04 Outpatient [facility] [id number] Common 09:00:00 09:00:[address] [facility] 2019-08-28 2019-08-29 Office [facility] 1.2.840.114 [id number] Univers 09:35:40 15:54:44 Visit Naomy Luciano 350.1.13.10 ity of [place] [phone] Oh dical nal 9 [facility] 2019-08-29 2019-08-29 Telephone [facility] 1.2.420.531 [id number] Univers 00:00:00 00:00:00 Naomy Luciano 350.1.13.10 ity of [place] 4[place].2.[place] [id number] Oh dical nal 9 [facility] 2019-08-28 2019-08-28 Orders Doctor CESAR 1.2.840.114 [id number] Univers 00:00:00 00:00:00 Only Unassigned, KOREY 350.1.13.10 ity of [place] [facility] 4.2.7.2.686 Cr as [id number] [address] 2019-05-29 2019-05-29 Outpatient [facility] [id number] Common 14:38:00 14:38:[address] [facility] 2019-05-29 2019-05-29 Outpatient [facility] [id number] Common 11:30:00 11:30:[address] [facility] 2019-02-19 2019-02-19 Outpatient [facility] [id number] Common 08:15:00 08:15:[address] [facility] 2019-02-03 2019-02-03 Outpatient [facility] [id number] Common 16:15:00 16:15:[address] [facility] 2019-01-09 2019-01-09 Outpatient [facility] [id number] Common 08:15:00 08:15:[address] [facility] 2018-11-05 2018-11-05 Outpatient [facility] [id number] Common 10:00:00 10:00:[address] [facility] 2018-08-26 2018-08-26 Outpatient [facility] [id number] Common 08:43:00 08:43:[address] [facility] 2018-08-08 2018-08-08 Outpatient [facility] [id number] Common 10:15:00 10:15:[address] [facility] 2018-05-08 2018-05-08 Outpatient [facility] [id number] Common 10:00:00 10:00:[address] [facility] 2018-02-14 2018-02-14 Outpatient [facility] [id number] Common 13:45:00 13:45:00 t Specialty/U Sp alma Specialty rology - CHI /Urology Clinic [facility] 2018-02-14 2018-02-14 Outpatient [facility] [id number] Common 13:45:00 13:45:00 t Specialty/U Sp alma Specialty rology - CHI /Urology Clinic [facility] 2018-02-12 2018-02-12 Outpatient [facility] [id number] Common 16:00:00 16:00:00 t Specialty/U Sp alma Specialty rology - CHI /Urology Clinic [facility] 2018-02-12 2018-02-12 Outpatient [facility] [id number] Common 15:28:00 15:28:00 t Specialty/U Sp alma Specialty rology - CHI /Urology Clinic [facility] 2018-02-06 2018-02-06 Outpatient [facility] [id number] Common 09:30:00 09:30:[address] [facility] 2018-01-28 2018-01-28 Outpatient [facility] [id number] Common 14:50:00 14:50:00 t Specialty/U Sp alma Specialty rology - CHI /Urology Clinic [facility] 2018-01-15 2018-01-15 Outpatient [facility] [id number] Common 09:45:00 09:45:00 t Specialty/U Sp alma Specialty rology - CHI /Urology Clinic [facility] 2018-01-02 2018-01-02 Outpatient [facility] [id number] Common 09:30:00 09:30:00 t Specialty/U Sp alma Specialty rology - CHI /Urology Clinic [facility] 2017-12-31 2017-12-31 Outpatient [facility] [id number] Common 10:00:00 10:00:[address] [facility] 2017-10-29 2017-10-29 Outpatient [facility] [id number] Common 10:00:00 10:00:[address] [facility] Results Test Description Test Time Test Comments Results Result Comments Source POCT GLUCOSE (AUTOMATED) 2023-04-07 17:19:13 Test Item Value Reference Range Interpretation Comme nts POCT GLU (test code = 2301922529) 341 mg/dL 70-110 H Lab Interpretation (test code = 25298-7) Abnormal [facility] GLUCOSE (AUTOMATED)2023-04-07 13:54:40 Test Item Value Reference Range Interpretation Comments POCT GLU (test code = 0712341964) 131 mg/dL 70-110 H Lab Interpretation (test code = Abnormal 53734-7) [facility] GLUCOSE (AUTOMATED)2023-04-07 03:43:01 Test Item Value Reference Range Interpretation Comments POCT GLU (test code = 0254659675) 207 mg/dL 70-110 H Lab Interpretation (test code = Abnormal 92821-3) [facility] GLUCOSE (AUTOMATED)2023-04-06 21:00:15 Test Item Value Reference Range Interpretation Comments POCT GLU (test code = 0886588117) 137 mg/dL 70-110 H Lab Interpretation (test code = Abnormal 45783-2) [id number] 07:17:35 Test Item Value Reference Range Interpretation Comments TROPONIN I (test code = 0.006 ng/mL <=0.034 7906942685) ALDO (test code = ALDO) Reference (Normal) Range (defined by the 99th percentile reference limit): <= 0.034 ng/mL Note: Cardiac troponin begins to rise 3-4 hours after the onset of ischemia. Repeat in 4-6 hours if the sample was drawn within 3-4 hours of the onset of the symptom and found normal. Diagnosis of myocardial injury is made with acute changes in cTn concentrations with at least one serial sample above the 99th percentile upper reference limit (URL), taken together with the patient's clinical presentation. Biotin has been reported to cause a negative bias, interpret results relative to patient's use of biotin. Lab Interpretation Normal (test code = 39057-8) [facility]. METABOLIC PANEL (80048)2023-03-06 05:08:40 Test Item Value Reference Range Interpretation Comments NA (test code = 141 mmol/L 135-145 3430374794) K (test code = 4.0 mmol/L 3.5-5.0 3474926394) CL (test code = 105 mmol/L 98-108 9313550601) CO2 TOTAL (test code = 26 mmol/L 23-31 2449064106) AGAP (test code = 10 2-16 8703316306) BUN (test code = 27 mg/dL 7-23 H 5065498185) GLUCOSE (test code = 163 mg/dL 70-110 H 4326250090) CREATININE (test code = 0.99 mg/dL 0.50-1.04 6741611966) TOTAL BILI (test code = 1.0 mg/dL 0.1-1.1 7312067519) CALCIUM (test code = 9.4 mg/dL 8.6-10.6 4094361785) T PROTEIN (test code = 7.2 g/dL 6.3-8.2 8881426637) ALBUMIN (test code = 4.2 g/dL 3.5-5.0 8980137818) ALK PHOS (test code = 100 U/L 34-122 3405611875) ALTv (test code = 18 U/L 5-35 1742-6) AST(SGOT) (test code = 26 U/L 13-40 6365290219) eGFR (test code = 54.0 mL/min/1.73m2 0271871749) ALDO (test code = ALDO) Association of Glomerular Filtration Rate (GFR) and Staging of Kidney Disease* + --+ --+ ------+| GFR (mL/min/1.73 m2) ?| With Kidney Damage ?| ?Without Kidney Damage+ --------+ --------+ +| ?>90 ?| ?Stage one ?| ? Normal ?+ ---+ ---+ -------+| ?60-89 ?| ?Stage two ?| ? Decreased GFR ? + --+ --+ ------+| ?30-59 ?| ?Stage three ?| ? Stage three ? + --+ --+ ------+| ?15-29 ?| ?Stage four ? | ? Stage four ?+ ---+ ---+ -------+| ?<15 (or dialysis) ? ?| ?Stage five ? | ? Stage five ?+ ---+ ---+ -------+ *Each stage assumes the associated GFR level has been in effect for at least three months. ?Stages 1 to 5, with or without kidney disease, indicate chronic kidney disease. Notes: Determination of stages one and two (with eGFR >59mL/min/1.73 m2) requires estimation of kidney damage for at least three months as defined by structural or functional abnormalities of the kidney, manifested by either:Pathological abnormalities or Markers of kidney damage (including abnormalities in the composition of the blood or urine or abnormalities in imaging tests). Lab Interpretation Abnormal (test code = 47114-4) [facility] [id number] 04:57:57 Test Item Value Reference Range Interpretation Comments TROPONIN I (test code = 0.004 ng/mL <=0.034 [id number]) ALDO (test code = ALDO) Reference (Normal) Range (defined by the 99th percentile reference limit): <= 0.034 ng/mL Note: Cardiac troponin begins to rise 3-4 hours after the onset of ischemia. Repeat in 4-6 hours if the sample was drawn within 3-4 hours of the onset of the symptom and found normal. Diagnosis of myocardial injury is made with acute changes in cTn concentrations with at least one serial sample above the 99th percentile upper reference limit (URL), taken together with the patient's clinical presentation. Biotin has been reported to cause a negative bias, interpret results relative to patient's use of biotin. Lab Interpretation Normal (test code = 47372-1) [facility] [id number] 04:55:15 Test Item Value Reference Range Interpretation Comments NT-proBNP (test code = 368 pg/mL <=125 21267-4) ALDO (test code = ALDO) Result Indeterminate-Consid er causes of NT-proBNP elevation other than Heart failure such as acute coronary syndrome, pulmonary embolism, pulmonary hypertension, sepsis, stroke, and renal dysfunction. Lab Interpretation (test Abnormal code = 20241-4) [facility] TexasProthrombin Time / [id number] 04:40:36 Test Item Value Reference Range Interpretation Comments PROTIME PATIENT (test 13.1 See_Comment [Auto mated message] code = 5964-2) The system wh ich generated this result transmitted ref erence range: 12.0 - 1 4.7 Seconds. The re ference range was not u sed to interpret this result as normal/abnor mal. INR (test code = 6301-6) 1.0 Nor mal INR <1.1; Warfarin Therap eutic range 2.0 to 3. 0 or 2.5 to 3.5, dep ending upon the indica tions. Lab Interpretation (test Normal code = 05554-1) [facility] TexasCBC WITH [id number] 04:32:55 Test Item Value Reference Range Interpretation Comments WBC (test code = 5.49 See_Comment [Automated 2565-2) message] The sy stem which generated this result transmitted reference range : 4.30 - 11.10 10*3/?L. The reference range was not used to interpret this result as normal/abnormal . RBC (test code = 3.79 See_Comment L [Automated 710-8) message] The sy stem which generated this result transmitted reference range : 3.93 - 5.25 10*6/?L. The reference range was not used to interpret this result as normal/abnormal . HGB (test code = 11.5 g/dL 11.6-15.0 L 718-7) HCT (test code = 35.2 % 35.7-45.2 L 4544-3) MCV (test code = 92.9 fL 80.6-95.5 787-2) MCH (test code = 30.3 pg 25.9-32.8 785-6) MCHC (test code = 32.7 g/dL 31.6-35.1 786-4) RDW-SD (test code = 48.0 fL 39.0-49.9 28258-8) RDW-CV (test code = 14.3 % 12.0-15.5 788-0) PLT (test code = 188 See_Comment [Automated 777-3) message] The sy stem which generated this result transmitted reference range : 166 - 358 10*3/ ?L. The reference r yusef was not used to interpret this result as normal/abnormal . MPV (test code = 9.9 fL 9.5-12.9 50360-3) NRBC/100 WBC (test 0.0 See_Comment [Automat ed code = 5836914004) message] The system which generated this result transmitted reference range : 0.0 - 10.0 /100 WBCs. The refer ence range was not u sed to interpret th is result as normal/abnormal . NRBC x10^3 (test code See_Comment [Auto mated = 7136378136) message] The s ystem which generated this result transmitted reference range : 10*3/?L. The reference range was not used to interpret this result as normal/abnormal . GRAN MAT (NEUT) % 53.8 % (test code = 770-8) IMM GRAN % (test code 0.20 % = 3277325533) LYMPH % (test code = 32.6 % 736-9) MONO % (test code = 9.8 % 5905-5) EOS % (test code = 2.9 % 713-8) BASO % (test code = 0.7 % 706-2) GRAN MAT x10^3(ANC) 2.95 10*3/uL 1.88-7.09 (test code = 9647062306) IMM GRAN x10^3 (test 0.00-0.06 code = 0505931468) LYMPH x10^3 (test code 1.79 10*3/uL 1.32-3.29 = 731-0) MONO x10^3 (test code 0.54 10*3/uL 0.33-0.92 = 742-7) EOS x10^3 (test code = 0.16 10*3/uL 0.03-0.39 711-2) BASO x10^3 (test code 0.04 10*3/uL 0.01-0.07 = 704-7) Lab Interpretation Abnormal (test code = 64903-1) [facility] TexasTROPONIN [id number] 02:56:03 Test Item Value Reference Interpretation Comments Range TROPONIN I (test 0.006 ng/mL See_Comment [Automated code = 0241763971) message] The system which generated this result transmitted reference range : <=0.034. The reference range was not used to interpret this result as normal/abnormal . ALDO (test code = Reference (Normal) ALDO) Range (defined by the 99th percentile reference limit): <= 0.034 ng/mL Note: Cardiac troponin begins to rise 3-4 hours after the onset of ischemia. Repeat in 4-6 hours if the sample was drawn within 3-4 hours of the onset of the symptom and found normal. Diagnosis of myocardial injury is made with acute changes in cTn concentrations with at least one serial sample above the 99th percentile upper reference limit (URL), taken together with the patient's clinical presentation. Biotin has been reported to cause a negative bias, interpret results relative to patient's use of biotin. Lab Interpretation Normal (test code = 20694-6) [facility] TexasCOM. METABOLIC PANEL ([id number])2022-08-20 02:38:00 Test Item Value Reference Range Interpretation Comments NA (test code = 139 mmol/L 135-145 9029463669) K (test code = 4.5 mmol/L 3.5-5.0 8106141189) CL (test code = 102 mmol/L 98-108 0091389316) CO2 TOTAL (test code = 26 mmol/L 23-31 2497326681) AGAP (test code = 2-16 4281983337) BUN (test code = 17 mg/dL 7-23 2133776489) GLUCOSE (test code = 139 mg/dL 70-110 H 3845751392) CREATININE (test code = 0.98 mg/dL 0.50-1.04 2687999440) TOTAL BILI (test code = 0.9 mg/dL 0.1-1.8 8625805479) CALCIUM (test code = 9.2 mg/dL 8.6-10.6 6729232988) T PROTEIN (test code = 7.2 g/dL 6.3-8.2 3203200135) ALBUMIN (test code = 4.5 g/dL 3.5-5.0 3751449326) ALK PHOS (test code = 88 U/L 34-122 9855724691) ALTv (test code = 16 U/L 5-35 1742-6) AST(SGOT) (test code = 26 U/L 13-40 3127431649) eGFR (test code = mL/min/1.73m2 9109990649) ALDO (test code = ALDO) Association of Glomerular Filtration Rate (GFR) and Staging of Kidney Disease* + --+ --+ ------+| GFR (mL/min/1.73 m2) ?| With Kidney Damage ?| ?Without Kidney Damage+ --------+ --------+ +| ?>90 ?| ?Stage one ?| ? Normal ?+ ---+ ---+ -------+| ?60-89 ?| ?Stage two ?| ? Decreased GFR ? + --+ --+ ------+| ?30-59 ?| ?Stage three ?| ? Stage three ? + --+ --+ ------+| ?15-29 ?| ?Stage four ? | ? Stage four ?+ ---+ ---+ -------+| ?<15 (or dialysis) ? ?| ?Stage five ? | ? Stage five ?+ ---+ ---+ -------+ *Each stage assumes the associated GFR level has been in effect for at least three months. ?Stages 1 to 5, with or without kidney disease, indicate chronic kidney disease. Notes: Determination of stages one and two (with eGFR >59mL/min/1.73 m2) requires estimation of kidney damage for at least three months as defined by structural or functional abnormalities of the kidney, manifested by either:Pathological abnormalities or Markers of kidney damage (including abnormalities in the composition of the blood or urine or abnormalities in imaging tests). Lab Interpretation Abnormal (test code = 45804-7) [facility] WITH [id number] 02:19:37 Test Item Value Reference Range Interpretation Comments WBC (test code = See_Comment H [Automated 6690-2) message] The sy stem which generated this result transmitted reference range : 4.30 - 11.10 10*3/?L. The reference range was not used to interpret this result as normal/abnormal . RBC (test code = See_Comment L [Automated 789-8) message] The sy stem which generated this result transmitted reference range : 3.93 - 5.25 10*6/?L. The reference range was not used to interpret this result as normal/abnormal . HGB (test code = 11.0 g/dL 11.6-15.0 L 718-7) HCT (test code = 34.5 % 35.7-45.2 L 4544-3) MCV (test code = 92.5 fL 80.6-95.5 787-2) MCH (test code = 29.5 pg 25.9-32.8 785-6) MCHC (test code = 31.9 g/dL 31.6-35.1 786-4) RDW-SD (test code = 47.7 fL 39.0-49.9 63950-4) RDW-CV (test code = 14.1 % 12.0-15.5 788-0) PLT (test code = See_Comment [Automated 777-3) message] The sy stem which generated this result transmitted reference range : 166 - 358 10*3/ ?L. The reference r yusef was not used to interpret this result as normal/abnormal . MPV (test code = 9.5 fL 9.5-12.9 67830-7) NRBC/100 WBC (test See_Comment [Automat ed code = 0670066753) message] The system which generated this result transmitted reference range : 0.0 - 10.0 /100 WBCs. The refer ence range was not u sed to interpret th is result as normal/abnormal . NRBC x10^3 (test code See_Comment [Auto mated = 2178596303) message] The s ystem which generated this result transmitted reference range : 10*3/?L. The reference range was not used to interpret this result as normal/abnormal . GRAN MAT (NEUT) % 82.8 % (test code = 770-8) IMM GRAN % (test code 0.40 % = 9918564826) LYMPH % (test code = 8.9 % 736-9) MONO % (test code = 6.1 % 5905-5) EOS % (test code = 1.2 % 713-8) BASO % (test code = 0.6 % 706-2) GRAN MAT x10^3(ANC) 9.30 10*3/uL 1.88-7.09 H (test code = 4885411865) IMM GRAN x10^3 (test 0.04 10*3/uL 0.00-0.06 code = 9046738175) LYMPH x10^3 (test code 1.00 10*3/uL 1.32-3.29 L = 731-0) MONO x10^3 (test code 0.68 10*3/uL 0.33-0.92 = 742-7) EOS x10^3 (test code = 0.13 10*3/uL 0.03-0.39 711-2) BASO x10^3 (test code 0.07 10*3/uL 0.01-0.07 = 704-7) Lab Interpretation Abnormal (test code = 90339-9) [facility] Texas[facility]an[facility] (TTE)2022-07-12 21:43:54 Test Item Value Reference Range Interpretation Comments Height (test code = in 8607373127) Weight (test code = lbs 6142730672) Systolic BP (test code mmHg = 5313276654) Diastolic BP (test code mmHg = 9439972284) Heart Rate (test code = bpm 4316712550) LVOT stroke volume 54.70 cm3 (test code = 3783664721) EF(Teich) (test code = 64.80 % 4371707325) LVIDD (test code = 4.10 cm 0068343859) LVIDS (test code = 2.70 cm 9686655930) Left Ventricular End 26.9 mL Systolic Volume by Teichholz Method (test code = 5129192) Left Ventricular End 76.4 mL Diastolic Volume by Teichholz Method (test code = 4378623) IVS (test code = 0.73 cm 0225154978) LVPWD (test code = 0.78 cm 3637330772) LVOT diameter (test 1.94 cm code = 7100009259) LVOT area (test code = 3.00 cm2 5885251261) FS (test code = 35 % 6968673781) MV Peak E Courtney (test 72.8 cm/s code = 2288871924) MV Peak A Courtney (test 93.4 cm/s code = 8938907729) E/A ratio (test code = ratio 2366111201) E wave decelartion time 0.23 s (test code = 4715009966) LA volume (BP) (test 18.7 mL code = 8812683854) LVOT peak courtney (test 87.0 cm/s code = 7044204759) LVOT mn grad (test code mmHg = 5484390374) LA size (test code = 2.9 cm 7865069382) LAV(MOD-sp2) (test code 10.30 mL = 5009788772) LAV(MOD-sp4) (test code 24.00 mL = 9466966354) Tapse (test code = 1.22 cm 6446010631) Aortic valve mean 74.5 cm/s velocity (test code = 9374563432) Ao peak courtney (test code 123.1 cm/s = 8679351043) Ao VTI (test code = 25.2 cm 0503192741) AV LVOT peak gradient mmHg (test code = 5797538112) LVOT peak VTI (test 18.5 cm code = 9545365714) AV area by cont VTI 2.2 cm2 (test code = 0412429462) AV area peak courtney (test 2.1 cm2 code = 6259586680) LV V1 mean (test code = 54.70 cm/s 4303554915) Ao max PG (test code = 6.10 mm[Hg] 7141921002) MV Prop V (test code = 46.10 cm/s 0619781775) TR Peak Courtney (test code 220.8 cm/s = 5638435898) Triscuspid Valve mmHg Regurgitation Peak Gradient (test code = 2946602217) Ao root diam (test code 2.90 cm = 1526695437) AV peak gradient (test mmHg code = 4782279813) AV valve area (test 2.17 cm2 code = 4097038201) AV mean gradient (test mmHg code = 1384809833) Aortic root (test code 2.9 cm = 6165645323) Ao root annulus (test 2.9 cm code = 8471220856) PW (test code = 0.78 cm 0.6-1.8 4834615470) EF - 2D (test code = 64.80 % 59385277) Interventricular Septum 0.73 cm Diastolic Thickness by 2D (test code = 7357425) LA Volume Index (BP) 13.6 mL/m2 (test code = 1178306232) BSA (test code = 1.37 m2 6977551550) RV-pozo length (test 4.3 cm code = 8375460897) A4C EF (test code = 60.70 % 8031923306) EF(sp4-el) (test code = 58.50 % 4919058483) SV(MOD-sp4) (test code 47.00 mL = 5516974493) SV(sp4-el) (test code = 44.90 mL 3940395700) LV Diastolic Volume 68.7 mL (BP) (test code = 2216814570) A2C EF (test code = 61.80 % 6128015890) EF(MOD-bp) (test code = 60.10 % 9623632999) EF(sp2-el) (test code = 61.60 % 2601475081) LV Systolic Volume (BP) 27.4 mL (test code = 7590582217) SV(MOD-bp) (test code = 41.30 mL 2860469579) SV(MOD-sp2) (test code 37.50 mL = 6848742865) EF (test code = 8478960241) Left Ventricular Stroke 41.3 mL Volume by 2-D Biplane-MOD (test code = 3165872) LV Diastolic Volume 50.1 mL/m2 Index (BP) (test code = 9316572480) LV Systolic Volume 20.0 mL/m2 Index (BP) (test code = 3917332570) Radiology Study observation (narrative) (test code = 47845-9) ALDO (test code = ALDO) ?Left?Ventricle: Left ventricle size is normal. Increased wall thickness. There is concentric remodeling. Normal wall motion. Normal systolic function with a visually estimated EF of 55 - 60%. EF by 2D Orantes biplane is 60%. Normal diastolic function. ?Right?Ventricle: Right ventricle size is normal. Normal systolic function. ?No valvular pathology noted. Left VentricleLeft ventricle size is normal. Increased wall thickness. There is concentric remodeling. Normal wall motion. Normal systolic function with a visually estimated EF of 55 - 60%. EF by 2D Orantes biplane is 60%. Normal diastolic function.Right VentricleRight ventricle size is normal. Normal systolic function.Left AtriumLeft atrium size is normal.Right AtriumRight atrium size is normal.IVC/SVCIVC diameter is less than or equal to 21 mm and decreases greater than 50% during inspiration; therefore the estimated right atrial pressure is normal (~0-5 mmHg).Mitral ValveMitral valve structure is normal. Mild posterior mitral annular calcification. Trace transvalvular regurgitation. No stenosis.Tricuspid ValveTricuspid valve structure is normal. Insufficient tricuspid regurgitation jet to estimate RVSP.Trace transvalvular regurgitation. Right ventricular systolic pressure is normal. RA pressure is 0-5 mmHg. No stenosis.Aortic ValveAortic valve structure is normal. Physiologically normal transvalvular regurgitation. No hemodynamically significant .Pulmonic ValveNot well visualized. Pulmonic valve is normal in structure and function. Physiologically normal transvalvular regurgitation. No stenosis.PericardiumTh e pericardium is normal. No pericardial effusion.Study DetailsStudy quality was good. A complete echocardiogram was performed using 2D, color flow Doppler and spectral Doppler. The apical, parasternal and subcostal views were obtained. Lumason ultrasound enhancing agent used. [facility]2022-07-12 21:43:54 Test Item Value Reference Range Interpretation Comments Height (test code = in 7183930512) Weight (test code = lbs 1997743199) Systolic BP (test code mmHg = 5116953547) Diastolic BP (test code mmHg = 2335281138) Heart Rate (test code = bpm 6719276750) LVOT stroke volume 54.70 cm3 (test code = 2203460413) EF(Teich) (test code = 64.80 % 8639965666) LVIDD (test code = 4.10 cm 1761018122) LVIDS (test code = 2.70 cm 7020791240) Left Ventricular End 26.9 mL Systolic Volume by Teichholz Method (test code = 5258874) Left Ventricular End 76.4 mL Diastolic Volume by Teichholz Method (test code = 8551249) IVS (test code = 0.73 cm 8765556230) LVPWD (test code = 0.78 cm 9565021294) LVOT diameter (test 1.94 cm code = 2509157831) LVOT area (test code = 3.00 cm2 3438180568) FS (test code = 35 % 8259724649) MV Peak E Courtney (test 72.8 cm/s code = 9210703794) MV Peak A Courtney (test 93.4 cm/s code = 8910765112) E/A ratio (test code = ratio 9718210341) E wave decelartion time 0.23 s (test code = 1220658286) LA volume (BP) (test 18.7 mL code = 6980898126) LVOT peak courtney (test 87.0 cm/s code = 5687934562) LVOT mn grad (test code mmHg = 2858105610) LA size (test code = 2.9 cm 2026057096) LAV(MOD-sp2) (test code 10.30 mL = 8471921100) LAV(MOD-sp4) (test code 24.00 mL = 9421641608) Tapse (test code = 1.22 cm 8151108263) Aortic valve mean 74.5 cm/s velocity (test code = 6212580526) Ao peak courtney (test code 123.1 cm/s = 5089794037) Ao VTI (test code = 25.2 cm 0699535645) AV LVOT peak gradient mmHg (test code = 8146530140) LVOT peak VTI (test 18.5 cm code = 8140013352) AV area by cont VTI 2.2 cm2 (test code = 0687231099) AV area peak courtney (test 2.1 cm2 code = 6034704803) LV V1 mean (test code = 54.70 cm/s 4358006202) Ao max PG (test code = 6.10 mm[Hg] 9920859313) MV Prop V (test code = 46.10 cm/s 5675941677) TR Peak Courtney (test code 220.8 cm/s = 5780362061) Triscuspid Valve mmHg Regurgitation Peak Gradient (test code = 6511399258) Ao root diam (test code 2.90 cm = 9380403403) AV peak gradient (test mmHg code = 7436417201) AV valve area (test 2.17 cm2 code = 1609851963) AV mean gradient (test mmHg code = 1433789118) Aortic root (test code 2.9 cm = 4936476960) Ao root annulus (test 2.9 cm code = 8716585973) PW (test code = 0.78 cm 0.6-1.5 7639973988) EF - 2D (test code = 64.80 % 50168473) Interventricular Septum 0.73 cm Diastolic Thickness by 2D (test code = 7683576) LA Volume Index (BP) 13.6 mL/m2 (test code = 2875759343) BSA (test code = 1.37 m2 6803932335) RV-pozo length (test 4.3 cm code = 5979886389) A4C EF (test code = 60.70 % 5910905405) EF(sp4-el) (test code = 58.50 % 9763111113) SV(MOD-sp4) (test code 47.00 mL = 3195891749) SV(sp4-el) (test code = 44.90 mL 7764362419) LV Diastolic Volume 68.7 mL (BP) (test code = 6493278904) A2C EF (test code = 61.80 % 9834383409) EF(MOD-bp) (test code = 60.10 % 3787406347) EF(sp2-el) (test code = 61.60 % 0662677030) LV Systolic Volume (BP) 27.4 mL (test code = 2416175947) SV(MOD-bp) (test code = 41.30 mL 1560076111) SV(MOD-sp2) (test code 37.50 mL = 6567900987) EF (test code = 7336940784) Left Ventricular Stroke 41.3 mL Volume by 2-D Biplane-MOD (test code = 5161336) LV Diastolic Volume 50.1 mL/m2 Index (BP) (test code = 0889482200) LV Systolic Volume 20.0 mL/m2 Index (BP) (test code = 4424406861) Radiology Study observation (narrative) (test code = 15993-3) ALDO (test code = ALDO) ?Left?Ventricle: Left ventricle size is normal. Increased wall thickness. There is concentric remodeling. Normal wall motion. Normal systolic function with a visually estimated EF of 55 - 60%. EF by 2D Orantes biplane is 60%. Normal diastolic function. ?Right?Ventricle: Right ventricle size is normal. Normal systolic function. ?No valvular pathology noted. Left VentricleLeft ventricle size is normal. Increased wall thickness. There is concentric remodeling. Normal wall motion. Normal systolic function with a visually estimated EF of 55 - 60%. EF by 2D Orantes biplane is 60%. Normal diastolic function.Right VentricleRight ventricle size is normal. Normal systolic function.Left AtriumLeft atrium size is normal.Right AtriumRight atrium size is normal.IVC/SVCIVC diameter is less than or equal to 21 mm and decreases greater than 50% during inspiration; therefore the estimated right atrial pressure is normal (~0-5 mmHg).Mitral ValveMitral valve structure is normal. Mild posterior mitral annular calcification. Trace transvalvular regurgitation. No stenosis.Tricuspid ValveTricuspid valve structure is normal. Insufficient tricuspid regurgitation jet to estimate RVSP.Trace transvalvular regurgitation. Right ventricular systolic pressure is normal. RA pressure is 0-5 mmHg. No stenosis.Aortic ValveAortic valve structure is normal. Physiologically normal transvalvular regurgitation. No hemodynamically significant .Pulmonic ValveNot well visualized. Pulmonic valve is normal in structure and function. Physiologically normal transvalvular regurgitation. No stenosis.PericardiumTh e pericardium is normal. No pericardial effusion.Study DetailsStudy quality was good. A complete echocardiogram was performed using 2D, color flow Doppler and spectral Doppler. The apical, parasternal and subcostal views were obtained. Lumason ultrasound enhancing agent used. [facility] GLUCOSE (AUTOMATED)2022-07-12 18:54:46 Test Item Value Reference Range Interpretation Comments POCT GLU (test code = 9916831672) 146 mg/dL 70-110 H Lab Interpretation (test code = Abnormal 36744-9) [facility] GLUCOSE (AUTOMATED)2022-07-12 18:54:46 Test Item Value Reference Range Interpretation Comments POCT GLU (test code = 0552950492) 146 mg/dL 70-110 H Lab Interpretation (test code = Abnormal 89177-5) [facility] GLUCOSE (AUTOMATED)2022-07-12 15:00:17 Test Item Value Reference Range Interpretation Comments POCT GLU (test code = 8336474966) 132 mg/dL 70-110 H Lab Interpretation (test code = Abnormal 11092-0) [facility] GLUCOSE (AUTOMATED)2022-07-12 15:00:17 Test Item Value Reference Range Interpretation Comments POCT GLU (test code = 7631621612) 132 mg/dL 70-110 H Lab Interpretation (test code = Abnormal 19003-7) [facility] GLUCOSE (AUTOMATED)2022-07-12 03:47:57 Test Item Value Reference Range Interpretation Comments POCT GLU (test code = 8341106065) 173 mg/dL 70-110 H Lab Interpretation (test code = Abnormal 05653-5) [facility] GLUCOSE (AUTOMATED)2022-07-12 03:47:57 Test Item Value Reference Range Interpretation Comments POCT GLU (test code = 1269904959) 173 mg/dL 70-110 H Lab Interpretation (test code = Abnormal 80981-0) [facility] GLUCOSE (AUTOMATED)2022-07-12 00:11:45 Test Item Value Reference Range Interpretation Comments POCT GLU (test code = 7786891391) 236 mg/dL 70-110 H Lab Interpretation (test code = Abnormal 21639-6) [facility] GLUCOSE (AUTOMATED)2022-07-12 00:11:45 Test Item Value Reference Range Interpretation Comments POCT GLU (test code = 9858224385) 236 mg/dL 70-110 H Lab Interpretation (test code = Abnormal 12363-5) [facility] GLUCOSE (AUTOMATED)2022-07-11 22:59:10 Test Item Value Reference Range Interpretation Comments POCT GLU (test code = 7865757122) 195 mg/dL 70-110 H Lab Interpretation (test code = Abnormal 28042-2) [facility] GLUCOSE (AUTOMATED)2022-07-11 22:59:10 Test Item Value Reference Range Interpretation Comments POCT GLU (test code = 4343882585) 195 mg/dL 70-110 H Lab Interpretation (test code = Abnormal 97276-3) [facility]OLIC PAN[facility] ([id number])2022-07-07 17:52:04 Test Item Value Reference Range Interpretation Comments NA (test code = 143 mmol/L 135-145 9485868399) K (test code = 5.2 mmol/L 3.5-5.0 H 1071810721) CL (test code = 107 mmol/L 98-108 3656800778) CO2 TOTAL (test code = 27 mmol/L 23-31 9699632744) AGAP (test code = 2-16 5394544337) BUN (test code = 28 mg/dL 7-23 H 5758506807) GLUCOSE (test code = 104 mg/dL 70-110 4010150322) CREATININE (test code = 1.00 mg/dL 0.50-1.04 2356596621) TOTAL BILI (test code = 1.2 mg/dL 0.1-1.1 H 8593519954) CALCIUM (test code = 8.9 mg/dL 8.6-10.6 8826398674) T PROTEIN (test code = 6.9 g/dL 6.3-8.2 1983948862) ALBUMIN (test code = 4.4 g/dL 3.5-5.0 0018052930) ALK PHOS (test code = 72 U/L 34-122 3676946849) ALTv (test code = 17 U/L 5-35 1742-6) AST(SGOT) (test code = 27 U/L 13-40 8055719636) eGFR (test code = mL/min/1.73m2 3073669115) ALDO (test code = ALDO) Association of Glomerular Filtration Rate (GFR) and Staging of Kidney Disease* + --+ --+ ------+| GFR (mL/min/1.73 m2) ?| With Kidney Damage ?| ?Without Kidney Damage+ --------+ --------+ +| ?>90 ?| ?Stage one ?| ? Normal ?+ ---+ ---+ -------+| ?60-89 ?| ?Stage two ?| ? Decreased GFR ? + --+ --+ ------+| ?30-59 ?| ?Stage three ?| ? Stage three ? + --+ --+ ------+| ?15-29 ?| ?Stage four ? | ? Stage four ?+ ---+ ---+ -------+| ?<15 (or dialysis) ? ?| ?Stage five ? | ? Stage five ?+ ---+ ---+ -------+ *Each stage assumes the associated GFR level has been in effect for at least three months. ?Stages 1 to 5, with or without kidney disease, indicate chronic kidney disease. Notes: Determination of stages one and two (with eGFR >59mL/min/1.73 m2) requires estimation of kidney damage for at least three months as defined by structural or functional abnormalities of the kidney, manifested by either:Pathological abnormalities or Markers of kidney damage (including abnormalities in the composition of the blood or urine or abnormalities in imaging tests). Lab Interpretation Abnormal (test code = 02771-7) [facility] [facility] [id number] 17:46:24 Test Item Value Reference Range Interpretation Comments NT-proBNP (test code 664 pg/mL See_Comment H [Autom ated = [id number]) message] The system which generated this result transmitted reference range : <=450. The reference range was not used to interpret this result as normal/abnormal . ALDO (test code = ALDO) Biotin has been reported to cause a negative bias, interpret results relative to patient's use of biotin. Lab Interpretation Abnormal (test code = 47424-5) [facility] 17:30:45 Test Item Value Reference Range Interpretation Comments APTT Patient (test See_Comment [Automat ed code = 3173-2) message] The system which generated this result transmitted reference range : 23 - 38 Seconds . The reference range was not used to interpr et this result as normal/abnormal . ALDO (test code = ALDO) The [facility] patient population mean normal value for aPTT is 30 seconds. Lab Interpretation Normal (test code = 17331-8) [facility] / [id number] 17:28:43 Test Item Value Reference Range Interpretation Comments PROTIME PATIENT (test See_Comment [Auto mated message] code = 5964-2) The system wh ich generated this result transmitted ref erence range: 12.0 - 1 4.7 Seconds. The re ference range was not u sed to interpret this result as normal/abnor mal. INR (test code = 6301-6) Nor mal INR <1.1; Warfarin Therap eutic range 2.0 to 3. 0 or 2.5 to 3.5, dep ending upon the indica tions. Lab Interpretation (test Normal code = 60118-9) [facility] WITH [id number] 16:11:35 Test Item Value Reference Range Interpretation Comments WBC (test code = See_Comment [Automated 6690-2) message] The sy stem which generated this result transmitted reference range : 4.30 - 11.10 10*3/?L. The reference range was not used to interpret this result as normal/abnormal . RBC (test code = See_Comment L [Automated 789-8) message] The sy stem which generated this result transmitted reference range : 3.93 - 5.25 10*6/?L. The reference range was not used to interpret this result as normal/abnormal . HGB (test code = 11.2 g/dL 11.6-15.0 L 718-7) HCT (test code = 35.5 % 35.7-45.2 L 4544-3) MCV (test code = 92.9 fL 80.6-95.5 787-2) MCH (test code = 29.3 pg 25.9-32.8 785-6) MCHC (test code = 31.5 g/dL 31.6-35.1 L 786-4) RDW-SD (test code = 48.5 fL 39.0-49.9 59638-9) RDW-CV (test code = 14.6 % 12.0-15.5 788-0) PLT (test code = See_Comment [Automated 777-3) message] The sy stem which generated this result transmitted reference range : 166 - 358 10*3/ ?L. The reference r yusef was not used to interpret this result as normal/abnormal . MPV (test code = 9.6 fL 9.5-12.9 65575-8) NRBC/100 WBC (test See_Comment [Automat ed code = 1273605907) message] The system which generated this result transmitted reference range : 0.0 - 10.0 /100 WBCs. The refer ence range was not u sed to interpret th is result as normal/abnormal . NRBC x10^3 (test code See_Comment [Auto mated = [id number]) message] The s ystem which generated this result transmitted reference range : 10*3/?L. The reference range was not used to interpret this result as normal/abnormal . GRAN MAT (NEUT) % 72.8 % (test code = 770-8) IMM GRAN % (test code 0.30 % = 7979681165) LYMPH % (test code = 17.4 % 736-9) MONO % (test code = 6.8 % 5905-5) EOS % (test code = 1.8 % 713-8) BASO % (test code = 0.9 % 706-2) GRAN MAT x10^3(ANC) 5.65 10*3/uL 1.88-7.09 (test code = 2742886626) IMM GRAN x10^3 (test 0.00-0.06 code = 3447668096) LYMPH x10^3 (test code 1.35 10*3/uL 1.32-3.29 = 731-0) MONO x10^3 (test code 0.53 10*3/uL 0.33-0.92 = 742-7) EOS x10^3 (test code = 0.14 10*3/uL 0.03-0.39 711-2) BASO x10^3 (test code 0.07 10*3/uL 0.01-0.07 = 704-7) Lab Interpretation Abnormal (test code = 25622-5) [facility] History and Physical Notes Date/Time Note Provider Source 2023-04-06 14:33:23-00:00 Formatting of this note is d ifferent from the original. [facility] ADMIT H&P Date of Service: 04/06/2023 PCP: Cydney Parra CHIEF COMPLAINT: History of Present Illness Justin Parekh is a 78 year old female with PMH CKD-III, CAD s/p CABG (MCBRIDE-LAD patent, SVG-OM occluded, s/p PCI to severe LM-pLCx disease on 07/11/22, PAD, HTN, HLD s/p LHC with coronary angio + RHC. Patient reports more recentl y experiencing recurrent atypical chest pain in addition to MANJARREZ. She was no longer able to do the same activities without getting quickly fatigued. Daughter states that the p cherelle lives by herself and does all of her daily living tasks herself and has noticed a significant change in her abilities secondary to MANJARREZ and pain. Patient was recently seen in ED for prolonged persistent chest pain. EKG/troponins x2 were negative without further need for work up. Patient was discharged home then followed up with her lithographic stripper Naomy Chahal MD who ultimately put in [facility] for cath. Patient currently feels well post-procedure. No chest pain, SOB, palpitations. Denies any significant pain or swelling to the right femoral access site. ALLERGIES No Known Allergies MEDICATIONS Current Outpatient Medications Medication Instructions SEDRICK CHEWABLE ASPIRIN ORAL 81 mg, Oral Cholecalciferol (Vitamin D3) (VITAMIN D3) 2,000 Units, Oral clopidogreL (PLAVIX) 75 mg, Oral, DAILY ibuprofen (IBU) 800 mg, Oral, Q8HPRN isosorbide mononitrate (IMDUR) 60 mg, Oral, ABRAM LY lisinopriL (PRINIVIL,ZESTRIL) 10 mg, Oral, BID metFORMIN (GLUCOPHAGE) 1,000 mg, Oral, BID MEAL S metoprolol tartrate (LOPRESSOR) 50 mg, Oral, BI D MEALS rosuvastatin (CRESTOR) 20 mg, Oral, QHS REVIEW OF SYSTEMS Review of Systems Constitutional: Negative for chills and fever. Respiratory: Negative for shortness of breath an d wheezing. Cardiovascular: Negative for chest pain, palpita tions and leg swelling. Gastrointestinal: Positive for nausea. Negative for vomiting. PHYSICAL EXAMINATION Vitals: 04/06/23 1316 04/06/23 1330 04/06/23 1432 04/06 1446 BP: (!) 141/52 (!) 152/48 Pulse: 60 56 Resp: 16 16 Temp: 37.2 ?C (98.9 ?F) 36.9 ?C (98.4 ?F) SpO2: 98% 97% Weight: 47.6 kg (105 lb) 47.6 kg (105 lb) Height: 1.448 m (4' 9") 1.448 m (4' 9") General: No acute distress, A&O x4 HEENT: Normocephalic, atraum atic, normal conjunctiva & lids, moist mucous membranes Lungs: clear to auscultation bilaterally, no aircraft stress analyst ckles, wheezes, or rhonchi Cardiovascular: Normal S1, S2, RRR, no rubs, mur murs, or gallops Abdomen: soft, non-tender, non-distended, + BS Extremities: no edema, 2+ peripheral pulses, war m and dry Integumentary: no rashes, warm, dry Neuro: normal gross function LABS- Reviewed pertinent labs as below: Labs (last 24 hours): Recent Labs 04/14/22 1032 07/07/22 0955 08/19/22 1957 03/05/23 2315 03/06/23 0133 03/30/23 1007 TROPNI -- -- 0.006 0.004 0.006 -- NTBNP 659* 664* -- 368 -- 746 Recent Labs 07/12/22 0437 03/30/23 1007 CHOL 102* 115* LDL 31 42 HDL 44* 52 TRIG 135 107 HGBA1C 6.6* 7.1* IMAGING- Reviewed, pertinent results as below: Echo 07/11/2022 Left Ventricle Left ventricl e size is normal. Increased wall thickness. There is concentric remodeling. Normal wall motion. Normal systolic function with a visually estimated EF of 55 - 60%. EF by 2D Si mpson biplane is 60%. Normal diastolic function. Right Ventricle Right ventricle size is normal. Normal systolic function. Left Atrium Left atrium size is normal. Right Atrium Right atrium size is normal. IVC/SVC IVC diameter is less than or equal to 21 mm and decreases greater than 50% during inspiration; therefore the estimated right atrial pressure is normal (~0-5 mmHg). Mitral Valve Mitral valve st ructure is normal. Mild posterior mitral annular calcification. Trace transvalvular regurgitation. No stenosis. Tricuspid Valve Tricuspid va lve structure is normal. Insufficient tricuspid regurgitation jet to estimate RVSP.Trace transvalvular regurgitation. Right ventricular systolic pressure is normal. RA pressure is 0-5 mmHg. No stenosis. Aortic Valve Aortic valve st ructure is normal. Physiologically normal transvalvular regurgitation. No hemodynamically significant . Pulmonic Valve Not well visu alized. Pulmonic valve is normal in structure and function. Physiologically normal transvalvular regurgitation. No stenosis. Pericardium The pericardium is normal. No perica rdial effusion. Interpretation Summary Left Ventricle: Left ventri gilbert size is normal. Increased wall thickness. There is concentric remodeling. Normal wall motion. Normal systolic function with a visually estimated EF of 55 - 60%. EF by 2D [place] biplane is 60%. Normal diastolic functio n. Right Ventricle: Right ventricle size is normal . Normal systolic function. No valvular pathology noted. [facility] 04/06/23 Coronary dominance: left Left main: Patent LM stent LAD: Large. MANUAL EQUIPMENT MECHANIC LCX: Large,dominant, proxima l stent with 70% ISR (IVUS indicative ISR with stent under-expansion, MLA 3.7 mm^2 and 71.9% stenosis; 3.5 Trosper Cutting Balloon; 4.0 NC; minimal residual stenosis), mid to distal mild LI OM1: Small to medium size, ostial 80-90% then m ild LI OM2,3: Small OM 4,5: Small to medium size, mild LI LPDA/PL: Small to medium size, mild LI RCA: Medium size, non-domina nt, proximal 90%, mid 80%, distal mild LI. Distal vessel gives R==>L collaterals to dLAD Grafts: MCBRIDE to LAD: Patent. Mid to distal vessel is of small caliber. Distal MANUAL EQUIPMENT MECHANIC. Distal vessel is supplied by R==>L collaterals SVG to OM: Known to be occluded. LVEDP: 7 mmHg Impression: Severe [place] disease Patent MCBRIDE to LAD Severe pLCx ISR. Successful PTCA with 4.0 NC Markedly elevated BP ASSESSMENT/PLAN Justin Parekh is a 78 year old female with PMH as listed above, admitted to the hospital with: Unstable angina pectoris CAD s/p CABG (2017); S/p PCI Lcx (07/11/2022) Essential hypertension Bilateral carotid artery stenosis MANJARREZ (dyspnea on exertion) PAD (peripheral artery disease) HTN HLD -Admit to [facility] -Telemetry -CBC, BMP, Mg, -Keep K >4, Mg > 2 -Cardiac diet - ASA 81 mg daily - Brilinta 180 mg load given , c/w 90 mg BID 2 doses (one tonight, one heide morning). - Load Plavix 300 mg tomorrow, then c/w 75 mg da gerald thereafter - Rosuvastatin 20 mg - lisinopriL, 10 mg, BID - metoprolol tartrate, 50 mg, BID MEALS - isosorbide mononitrate, 60 mg, DAILY - NS 50cc/hr for 8 hours #Diabetes Mellitus (non-insulin dependent) - SSI - Hold metformin Pain: Controlled- Tylenol Prophylaxis: DVT- heparin Stress Ulcer: no indication for prophylaxis Code Status: Addressed: full Romy Shen MD Internal Medicine, PGY-1 CURRENT MEDICATIONS Scheduled meds: [START ON 04/07/2023] aspirin, 81 mg, DAILY [START ON 04/07/2023] clopidogreL, 300 mg, ONCE [START ON 04/07/2023] docusate, 100 mg, DAILY heparin (porcine) 5,000 units subcutaneous injec tion, 5,000 Units, Q12H [START ON 04/07/2023] isosorbide mononitrate, 60 mg, DAILY lisinopriL, 10 mg, BID metoprolol tartrate, 50 mg, BID MEALS rosuvastatin, 20 mg, QHS insulin lispro (human), , TID MEALS+HS ticagrelor, 90 mg, BID Continuous IV meds: NaCl 0.9% (NS) PRN meds: acetaminophen, 650 mg, Q6HPRN acetaminophen-codeine, 1 tablet, Q6HPRN dextrose 50 % in water (D50W), 25 mL, PRN glucagon, 1 mg, PRN Electronically signed by Fuad Soliz MD at 12:57 PM CDT Associated attestation - Fuad Soliz MD - 03/23 12:57 PM CDT I discussed the patient and agree with the management and plan as outlined in the resident's note, written by Dr. Lemus . Please see the resident's note for additional details. Fuad Soliz MD [employer] As[employer] Division of Cardiology Procedure Notes Date/Time Note Provider Source 2023-04-06 Procedure(s): CORONARY ANGIO GRAPHY; LEFT HEART CATH; IVUS; PERCUTANEOUS TRANSLUMINAL CORONARY ANGIOPLASTY IM-INTERVENTIONAL [facility] 11:54:00-00:00 Pre-Procedure Diagnose(s): C oronary artery disease of [place] artery of [place] heart with stable angina pectoris CARDIOLOGY STAFF Post-Procedure Diagnose(s): Coronary artery disease of [place] artery of [place] heart with stable angina pectoris Left Heart Cath/Coronary Angiography Date of Service: 04/06/2023 11:55 AM Fellow: Drs. Ayon and Mustapha Faculty: [facility] Indication/Diagnosis: Stable Angina Consent source: self Consent type: indications/co mplications discussed with patient/legal guardian; written consent obtained Time out completed: yes Aseptic technique: Chlorprep Local Anesthesia: 1% lidocaine without epinephri ne Sedation: fentanyl 25 mcg, Versed 1 mg Access site: right femoral artery Closure Method: Angio-Seal Sterile dressing: yes Complications: none Findings: Coronary dominance: left Left main: Patent LM stent LAD: Large. MANUAL EQUIPMENT MECHANIC LCX: Large,dominant, proxima l stent with 70% ISR (IVUS indicative ISR with stent under-expansion, MLA 3.7 mm^2 and 71.9% stenosis; 3.5 Trosper [place] Balloon; 4.0 NC; minimal residual stenosis), mid to distal mild LI OM1: Small to medium size, ostial 80-90% then m ild LI OM2,3: Small OM 4,5: Small to medium size, mild LI LPDA/PL: Small to medium size, mild LI RCA: Medium size, non-domina nt, proximal 90%, mid 80%, distal mild LI. Distal vessel gives R==>L collaterals to dLAD Grafts: MCBRIDE to LAD: Patent. Mid to distal vessel is of small caliber. Distal MANUAL EQUIPMENT MECHANIC. Distal vessel is supplied by R==>L collaterals SVG to OM: Known to be occluded. LVEDP: 7 mmHg Right External Iliac angiogram: Patent Post-Procedure Sedation Addendum Immediately prior to start o f sedation, the patient was evaluated and there was no change from the pre-procedure evaluation. I was present and directed medical care. The patient underwent modera te sedation for the procedure. The medications administered were recorded in the MAR; oxygenation, ventilation and circulation were monitored continuously and were recorded i n the EMR. I evaluated the patient after the pro cedure. The patient was evaluated immediately as recover ing from sedation. Complications: None Impression: Severe [place] disease Patent MCBRIDE to LAD Severe pLCx ISR. Successful PTCA with 4.0 NC Markedly elevated BP Plan: Monitor on Telemetry Floor ASA 81 mg daily Brilinta 180 mg load given, continue with 90 mg BID 2 doses (one tonight, next dose in the morning). Please load with Plavix 300 mg tomorrow, then continue with 75 mg daily thereafter Statin Beta jonah Aggressive medical management NS 50cc/hr for 8 hours If symptoms recur, LM-LCx li thotripsy will be considered +/- PTCA/RESOURCES REPRESENTATIVE of p-mRCA Findings and plan discussed with patient and fam gearld Lakhani M.D. Interventional Cardiology Pager: [phone] Electronically signed by Naga Lakhani MD at 12:08 PM CDT Notes Date/Time Note Provider Source 2023-04-07 [facility] 14:33:39-00:00 Problem: Discharge Planning Goal: Adequate for discharge Outcome: Adequate for discharge Goal: Effective communication Outcome: Adequate for discharge Problem: Falls, Risk of Goal: Absence of falls Outcome: Adequate for discharge Problem: Procedure Routine Goal: Absence of post-procedure complications Outcome: Adequate for discharge Goal: Knowledge of procedure Outcome: Adequate for discharge 2023-04-07 Formatting of this note might be differe nt from the original. Donn Bernard RN [facility] 04:07:50-00:00 Problem: Discharge Planning Goal: Adequate for discharge Outcome: Progressing as expected Goal: Effective communication Outcome: Progressing as expected Problem: Falls, Risk of Goal: Absence of falls Outcome: Progressing as expected Problem: Bleeding, Risk of Goal: Absence of impaired coagulation signs and symptoms Outcome: Progressing as expected Goal: Absence of active bleeding Outcome: Progressing as expected Problem: Procedure Routine Goal: Absence of post-procedure complications Outcome: Progressing as expected Goal: Knowledge of procedure Outcome: Progressing as expected T 2023-04-06 [facility] 16:23:19-00:00 Problem: Discharge Planning Goal: Adequate for discharge Outcome: Progressing as expected Goal: Effective communication Outcome: Progressing as expected Problem: Falls, Risk of Goal: Absence of falls Outcome: Progressing as expected Problem: Bleeding, Risk of Goal: Absence of impaired coagulation signs and symptoms Outcome: Progressing as expected Goal: Absence of active bleeding Outcome: Progressing as expected Problem: Procedure Routine Goal: Absence of post-procedure complications Outcome: Progressing as expected Goal: Knowledge of procedure Outcome: Progressing as expected 2023-04-04 Formatting of this note might be differe nt from the original. Susan Fitch RN [facility] - Health 11:11:51-00:00 [facility] CARDIAC CATH PRE-CALL INSTRUCTIONS Cardiac Cath Instructions were sent to patient v ia: Other telephone Your physician has determined that you need to u ndergo a(n) [facility] procedure. Listed below are some instructions for you to fo llow prior to the procedure. Do not eat or drink anything after midnight the night before the procedure, except for enough water to take your medications if so directed. For Carotid stenting procedu res, do not take blood pressure medications the morning prior to the procedure. For Carotid angiogram proced ures, do not stop taking your blood pressure medications. Take all medications except do not take metformin (Glucophage) 2 days prior to the procedure and do not take insulin or furosemide (lasix) the day of the procedure. If you are on blood thinners stop manan ing them 5 days prior to the procedure, unless o therwise instructed. If you are allergic to iodin e or shellfish, take pre-treatment medications as directed. Please call your referring physician for prescription. Bring a list of all current medications. Bring one adult family membe r or friend with you to drive you home, as you will be unable to drive for 48 hours after the procedure. Due to limited space and pat ient privacy, only one (1) visitor is permitted with the patient while they are recovering in the recovery area. No children under the age of 14 years will be al lowed in recovery area. Please park in the Hospital Garage via [address] from either [address] or [address]. Bring your parking ticket with you to be validated, only one parking ticket may be validated per patient. There may be a possibility o f hospital admission or late evening discharge; therefore, bring leisure reading and an overnight bag. On the day of your procedure , come directly to the Cardiac [employer] Analyst bilingual medical receptionist desk, located on the 6th floor of [facility] ([phone].) You will be escorted to the Cardiac Cath recovery room. Please call the Cardiac Retail Client [employer] Analyst at if you have any questions regarding your procedure. Date of Procedure: 04/06/2023 Time of Procedure: 614 For peripheral procedures, h ave you had an JAREN or arterial duplex? not applicable For ASD/PFO procedures, have you had:Not Applica ble Instructions given to patient: yes Family member provided with preferred teaching of verbal information on 04/04/2023. Shows readiness to learn. Verbal instruction teaching provided. Individual is able to read and verbalizes understanding of teaching provided. 2023-04-01 [facility] [employer] [facility] 17:18:47-00:00 Preangiogram labs within acc eptable stable limits to proceed with coronary angiogram. We will await the findings of the coronary angio gram. I currently see that the A1c is mildly elevated compared to before. NT BP mildly elevated. Will monitor. Plan for co ronary angiogram. Lipid panel at goal. CMP within acceptable stable limits. Mildly elev ated creatinine 1.1. A1c elevated 7.1. Magnesium normal at 2.0, CBC within acceptable s table limits. 2023-03-30 Formatting of this note is different from the or iginal. [facility] [employer] [facility] 10:15:00-00:00 Images from the original note were not included. Venipuncture collection perf ormed by clean technique on the left anticubitus. Total of 1 attempts were made. Slight pressure and a bandage/dressing were applied to the site(s). The patient experienced n o complications. The followi ng specimens were processed according to instructions and sent to [facility] laboratories per lab order on 03/30/2023: LT BLUE SST 1 RED LAV 2 PPT DK GREEN (LiHep) DK GREEN (SodH) AVINA DK BLUE (K2) DK BLUE (S) ACD Blood Culture NIPT/NTD 2023-03-30 Formatting of this note might be differe nt from the original. Charmaine Figueroa RN [facility] 08:58:08-00:00 Spoke with patient's phoenix schmid. She states that starting Sunday her mom has been more fatigued than usual. She states that on Sunday her mom had significant cramping in her fingers and toes lasting 2 0 minutes. She has been havi ng these cramps periodically but was worse on Sunday. Patient has MANJARREZ as well. Her daughter states that her mom needs to sit down frequently during the day because she feels short of breath doing her normal activities. Patient is scheduled for a l eft heart cath on 04/06/23. She is going to have her pre op labs done this morning. Her daughter states there her mom has not had any chest pain since her ER visit. Advised if she has chest pain she needs to go to ER. Routing to Dr. Bravo for an y additional recommendations. Will also route to Dr. Mcdowell since Dr. Bravo not in clinic today. Electronically signed by Charmaine Figueroa RN at 9:21 AM CDT 2023-03-14 Formatting of this note might be differe nt from the original. Dari Coyle [facility] 13:13:46-00:00 Called patient to schedule L eft Heart Cath, with Dr. Lakhani. Spoke to pts' daughter, Anthony. She agreed to 04/06, lab appt made for 03/30. 2023-03-06 Formatting of this note might be differe nt from the original. Charmaine Figueroa RN [facility] 10:02:12-00:00 Spoke with patient's phoenix r this morning. She states that she hasn't talked to her mom this am but she can see her on a monitor she is sitting on the couch at her home. She is going to check on her sh ortly. Notified her of Dr. Lily borges's recommendations to increase the isosorbide dose to 60 mg daily. She has been scheduled to see Dr. Bravo tomorrow at 10:30. Electronically signed by Charmaine Figueroa RN at 10:09 AM CDT 2023-03-06 [facility] 08:59:03-00:00 Patient presented to the ER yesterday for chest pain. Troponins x2 were negative. I was called by the ER physician. There were no beds in [facility]. Hence due to negative troponins x2, patient was discharged in the hospital. Please make follow-up with me either on this week at patient convenience. Acceptable to overbook except on a.m. Please ask how she is feeling now. In the interim please ask he r to increase isosorbide from 30 mg to 60 mg daily. Continue with aspirin/Plavix without interruption interruption. Please ask how her blood pressure is currently d oing at home. 2023-03-06 Formatting of this note might be differe nt from the original. Kathy Cortez RN [facility] 02:33:27-00:00 Pt given printed and verbal discharge instructions regarding chest pain, encouraged hydration, Pt verbalized understanding of instructions,pt encouraged to follow up with pcp Advised to seek medical attention for new/prolon ged/worsening of symptoms, No adverse reaction to meds given in ER noted up on discharge PIV d'cd, dressing to site, catheter in tact. Awake, alert oriented, resp reg unlabored, skin w/d, pt leaving in no apparent distress, 2023-03-05 Formatting of this note might be differe nt from the original. Edda Juárez RN [facility] 22:54:00-00:00 Patient came in with complai nts of left-sided chest pain that radiates to her left arm since 9PM. 2023-02-12 Formatting of this note might be differe nt from the original. Yanely Peralta RN [facility] 14:28:13-00:00 Pt discharged with diagnosis of left foot pain/bruise. Printed and verbal instructions reviewed with and given to patient. No new prescriptions given for this visit. Pt verbalized understanding of teach ing and recommended follow-u p. Denies questions or concerns at this time. Pt ambulatory at discharge. Appears in no apparent distress. No ataxia noted. Accompanied by daughter. 2023-02-12 Formatting of this note might be differe nt from the original. Jeff Nelson RN [facility] 12:31:04-:00 Patient to ED for pain to le ft foot after dropping a phone on it last Sunday. There is bruising and swelling. Patient is ambulatory. T 2023-02-12 Formatting of this note is different from the or iginal. [facility] 12:22:00-00:00 [facility] Emergency Department Note Patient Name: Justin Parekh Date of : 1945 78 year old female Treatment Room: [place] [address] Primary Care Physician: Cydney Parra Patient Escorted by: Family [5] Mode of Arrival: Personal means [1] EMS Treatment Prior to ED Arrival: Travel and Exposure Screening: Symptoms Does patient have any of these symptoms?: (not r ecorded) Exposure Screening Has patient had contact with someone with a communicable disease in the last month?: (not recorded) Diseases exposed to:: (not recorded) Is Patient ?: (not recorded) Exposure Date: (not recorded) Chief Complaint: Chief Complaint Patient presents with Foot Pain History of Present Illness: HPI 78yo F with CHF, DM , HTN presents today with left foot pain. She states she dropped her phone on her top of her foot on Sunday and she noticed a large bruise. She has been walking on it and hasn't taken any pain medica tions. She denies any other problems she states her family members have lost their feet and toes to amputation and she just wants to make sure she is okay. Past Medical History/Immunizations: Past Medical History: Diagnosis Date Arthritis CAD, multiple vessel s/p cabg in jun 2017 Cataract CHF (congestive heart failure) 09/13/2017 Diabetes mellitus Hyperlipidemia Hypertension Allergies: No Known Allergies Past Social History: Tobacco Use Never smoked or used smokeless tobacco. Alcohol Use No. Drug Use No. Past Surgical History: Past Surgical History: Procedure Laterality Date CAROTID ENDARTERECTOMY Bilateral CORONARY ARTERY BYPASS GRAFT N/A 07/02/2017 Surgeon: Mona Rondon MD; Location[facility] Location ENDOSCOPIC VEIN HARVEST (SHX) Left 07/02/2017 Surgeon: Mona Rondon MD; Location: [facility] Location EYE SURGERY Bilateral 2016 cataract removal Review of Systems: Review of Systems Constitutional: Negative for activity change, diaphoresis, fatigue, fever and weight gain. HENT: Negative for congestio n, ear pain, rhinorrhea, sore throat, tinnitus and trouble swallowing. Eyes: Negative for discharge and visual disturba nce. Respiratory: Negative for cough and chest tightn ess. Breasts: Negative for pain. Cardiovascular: Negative for chest pain and palp itations. Gastrointestinal: Negative for abdominal pain, n ausea and vomiting. Genitourinary: Negative for dysuria, hematuria a nd difficulty urinating. Musculoskeletal: Negative for joint swelling. Skin: Negative for rash and wound. Neurological: Negative for dizziness and headach es. Psychiatric/Behavioral: Nega tive for agitation and confusion. The patient is not nervous/anxious. Hematological: Bruises/bleeds easily (over dorsu m of left foot). Endocrine: Negative for weight gain. Physical Exam: ED Triage Vitals [02/12/23 1231] Weight 47.6 kg (105 lb) Actual or estimated Height 1.473 m (4' 10") BP (!) 166/55 Pulse 60 Resp 18 Temp 36.7 ?C (98.1 ?F) Temp src SpO2 99 % Measured on Physical Exam Vitals reviewed. Constitutional: Appearance: She is well-developed. HENT: Head: Normocephalic and atraumatic. Eyes: Conjunctiva/sclera: Conjunctivae normal. Cardiovascular: Rate and Rhythm: Normal rate and regular rhythm . Heart sounds: Normal heart sounds. No murmur he aniya. Pulmonary: Effort: Pulmonary effort is normal. Breath sounds: Normal breath sounds. No stridor . Abdominal: General: Bowel sounds are normal. Palpations: Abdomen is soft. Tenderness: There is no abdominal tenderness. Musculoskeletal: General: Signs of injury (l arge bruise over dorsum of left foot) present. Normal range of motion. Cervical back: Neck supple. Comments: Patient walks easily on both feet without limping or other problems Point tenderness over 3rd metatarsal otherwise n o complaints Skin: General: Skin is warm and dry. Capillary Refill: Capillary refill takes less t houser 2 seconds. Neurological: Mental Status: She is alert and oriented to per son, place, and time. Cranial Nerves: No cranial nerve deficit. Psychiatric: Behavior: Behavior normal. Radiology: XR FOOT 3+ VW LEFT Preliminary Result EXAM: XR FOOT 3+ VW LEFT HISTORY: 78 years-old Female with foot pain afte r dropping phone on foot. COMPARISON: None. FINDINGS: Radiographs of the left foot demonstrate avulsio n fracture of the distal first metatarsal. An osseous fragment between th e first and second digit metatarsal cyst present. The Lisfranc joint is p reserved. Soft tissue swelling over the dorsal foot is present. Calcan eal enthesophytes are present. IMPRESSION Age-indeterminate avulsion fracture of the dista l first metatarsal. A tiny osseous body between the first and second metatarsals is suspicious for avulsion injury. Preliminary Report Dictated by Resident: Timi oropeza Lab Results: Lab Results - No data to display EKG: If EKG completed, see Procedure Note. Orders and Treatments: Orders Placed This Encounter Procedures XR FOOT 3+ VW LEFT No orders of the defined types were placed in th is encounter. First Provider Eval: ED Events Date/Time Event User Comments 02/12/23 1242 Medical Screening Begins MARY GARCÍA MD -- 02/12/23 1242 First Provider Evaluation MARY TORRES MD -- ED COURSE Diagnosis/Impression as of 02/12/23 1427 Left foot pain Bruise Procedures: Procedures MDM: Medical Decision Making XR done to r/o fracture, vie wed with calcification of arteries and no fracture noted in area of concern Given normal gait, will discharge home with matt forbes. EDIT: when foot xray read, r ead as small avulsion fracture of 1st metatarsal. Given no ROM issues or weight bearing issues and patient has already left, this would NOT change my management. Will attempt to call patient to inform her of read change. Problems Addressed: Bruise: acute illness or injury Left foot pain: acute illness or injury Amount and/or Complexity of Data Reviewed Radiology: ordered and independent interpretatio n performed. Details: no obvious fracture Risk OTC drugs. Flowsheet Documentation: Scoring Tools: No data recorded Disposition/Condition: ED Disposition ED Disposition Disch - Home Condition Stable Comment -- Discharge Medications: Patient's Medications START taking these medications No medications on file CONTINUE taking these medications which have NOT CHANGED SEDRICK CHEWABLE ASPIRIN ORAL Take 81 mg by mouth. Indications: takes 2 per day CHOLECALCIFEROL, VITAMIN D3 , 50 MCG (2,000 UNIT) CAPSULE Take 2,000 Units by mouth. CLOPIDOGREL 75 MG TABLET Take 1 tablet by mouth in the morning. DAPAGLIFLOZIN (FARXIGA) 10 MG TABLET 1 By Mouth Daily for 90 DOXYCYCLINE HYCLATE 100 MG CAPSULE Take 1 capsule by mouth every 12 (twelve) hours. FERROUS SULFATE 325 MG (65 MG IRON) EC TABLET 1 tablet Orally Twice a day for 90 IBUPROFEN 800 MG TABLET Manan e 1 tablet by mouth every 8 (eight) hours as needed. ISOSORBIDE MONONITRATE 30 M G 24 HR TABLET Take 1 tablet by mouth in the morning. LISINOPRIL 10 MG TABLET Take 0.5 tablets by phi th in the morning. METFORMIN (GLUCOPHAGE) 500 MG TABLET Take 1,000 mg by mouth 2 (two) times daily with meals. METOPROLOL TARTRATE 50 MG T ABLET Take 1 tablet by mouth in the morning and 1 tablet in the evening. Take with meals. ROSUVASTATIN 20 MG TABLET Take 1 tablet by mout h at bedtime. START taking Modified Medications as Prescribed No medications on file STOP taking these medications No medications on file Follow-up: Electronically signed by: Mary Mejia DO 02/12/23 0905 Mary Mejia DO 02/12/23 0587 Mary Mejia DO 02/12/23 1427
[2023-04-09] MEDS ORDERED: ASPIRIN 81 MG CHEWABLE TABLET ONE (22:22)
--- NOTE | 2023-04-09 22:35 | RAD REPORT ---
EXAM DESCRIPTION: Jordant Single View04/09/2023 10:26 pm CLINICAL HISTORY: CHEST PAIN COMPARISON: Chest Single View dated 02/24/2022; Chest Single View dated 08/23/2019; Chest Single View da olvin 06/24/2017; Chest Single View dated 04/27/2016 TECHNIQUE: Portable AP view of the chest. FINDINGS: The lungs are clear. Left basilar atelectasis. No pneumothorax or effusion. The cardiomed iastinal contours are unremarkable. Implantable rhythm monitoring device in place. Status post CABG. IMPRESSION: No acute cardiopulmonary process.
[2023-04-09 22:53] LABS: Absolute Lymphocytes (CBC) 1.4 K/uL (0.7-4.9); Hematocrit 30.1 % (36.0-45.0); Lymphocytes % 19.8 % (15.3-44.8); MCV 90.4 fL (80-100); MPV 7.6 fL (7.6-11.3); Platelets 185 thou/uL (152-406); Protime INR 0.97; RBC Red Blood Cell Count 3.33 M/uL (3.86-4.86)
[2023-04-09 23:13] LABS: Albumin 3.2 g/dL (3.4-5.0); Bilirubin Direct 0.2 mg/dL (0-0.2); Bilirubin Indirect, Calculated 0.5 mg/dL (0.2-0.8); Bilirubin Total 0.7 mg/dL (0.2-1.0); Magnesium 2.1 mg/dL (1.6-2.4); Protein, Total 6.8 g/dL (6.4-8.2)
[2023-04-09 23:16] LABS: Troponin High Sensitivity 672.8 pg/mL (<58.9)
[2023-04-10] MEDS ORDERED: HYDRALAZINE HCL 20 MG/ML VIAL ONE (00:29)
--- NOTE | 2023-04-10 03:19 | ER ---
Nurse's Notes [facility] Name: Sherri Parekh Age: 78 yrs Sex: Female : 1945 Arrival Date: 04/09/2023 Time: 21:56 Bed 14 Private MD: Diagnosis: Non ST elevation KS;Atypical chest pain, troponin elevation Presentation: 04/09 21:58 Chief complaint: Patient states: left side burning chest pain of 9 that radiated to pf1 left arm and left neck,onset 2100. Patient stated with onset of pain was sitting in a recliner worrying about her sister that has cancer. Patient stated had a balloon procedure performed at [facility] on Sunday. 04/10 00:00 Coronavirus screen: Vaccine status: Patient reports receiving the 2nd dose of the covid pf1 vaccine. 3 doses Client denies travel out of the [place] in the last 14 days. At this time, the client does not indicate any symptoms associated with coronavirus-19. Ebola Screen: Patient negative for fever greater than or equal to 101.5 degrees Fahrenheit, and additional compatible Ebola Virus Disease symptoms. Initial Sepsis Screen: Does the patient meet any 2 criteria? No. Patient's initial sepsis screen is negative. Does the patient have a suspected source of infection? No. Patient's initial sepsis screen is negative. Risk Assessment: Do you want to hurt yourself or someone else? Patient reports no desire to harm self or others. 00:00 Method Of Arrival: EMS: [facility] pf1 00:00 Acuity: OTTO 2 pf1 Historical: - Allergies: 00:02 No Known Allergies; pf1 - PMHx: 00:02 CAD; Diabetes - NIDDM; High Cholesterol; Hypertension; pf1 - PSHx: 00:02 Coronary Angioplasty; Coronary artery bypass graft; pf1 - Immunization history:: Adult Immunizations up to date, Last tetanus immunization: > 10 years ago Flu vaccine is up to date. - Social history:: Smoking status: Patient denies any tobacco usage or history of. Patient/guardian denies using alcohol, street drugs. - Family history:: not pertinent. Screenin:04 [facility] ED Fall Risk Assessment (Adult) History of falling in the last 3 months, pf1 including since admission No falls in past 3 months (0 pts) Confusion or Disorientation No (0 pts) Intoxicated or Sedated No (0 pts) Impaired Gait No (0 pts) Mobility Assist Device Used No (0 pt) Altered Elimination No (0 pt) Score/Fall Risk Level 0 - 2 = Low Risk Oriented to surroundings, Maintained a safe environment, Educated pt \T\ family on fall prevention, incl call for assistance when getting out of bed, Assessed \T\ reinforced patient's understanding of fall precautions, Provided non-skid footwear, Hourly rounding (assess needs \T\ fall precautionary measures) done, Used ambulatory aids as needed (educated on \T\ assisted with), Used gait belt as appropriate. Abuse screen: Denies threats or abuse. Nutritional screening: No deficits noted. Tuberculosis screening: No symptoms or risk factors identified. Assessment: 04/09 22:00 Pain: Complains of pain in left side chest pain that radiates to left arm and left pf1 jaw,onset 2100. Patient denies any chest pain at this time. 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 Cardiovascular:. Cardiovascular: Reports chest pain, Denies chest pain, at this time Capillary refill < 3 seconds Patient's skin is warm and dry. Respiratory: No deficits noted. Airway is patent Respiratory effort is even, unlabored, Respiratory pattern is regular, Breath sounds are clear bilaterally. GI: No deficits noted. No signs and/or symptoms were reported involving the gastrointestinal system. : No deficits noted. No signs and/or symptoms were reported regarding the genitourinary system. EENT: No deficits noted. No signs and/or symptoms were reported regarding the EENT system. Derm: No deficits noted. No signs and/or symptoms reported regarding the dermatologic system. 23:00 Reassessment: Patient appears in no apparent distress at this time. Patient and/or pf1 family updated on plan of care and expected duration. Pain level reassessed. Patient is alert, oriented x 3, equal unlabored respirations, skin warm/dry/pink. Patient states feeling better. Patient states symptoms have improved. 04/10 00:00 Reassessment: Patient appears in no apparent distress at this time. Patient and/or pf1 family updated on plan of care and expected duration. Pain level reassessed. Patient is alert, oriented x 3, equal unlabored respirations, skin warm/dry/pink. Patient states feeling better. Patient states symptoms have improved. 01:00 Reassessment: Patient appears in no apparent distress at this time. Patient and/or pf1 family updated on plan of care and expected duration. Pain level reassessed. Patient is alert, oriented x 3, equal unlabored respirations, skin warm/dry/pink. Patient states feeling better. Patient states symptoms have improved. 02:00 Reassessment: Patient appears in no apparent distress at this time. Patient and/or pf1 family updated on plan of care and expected duration. Pain level reassessed. Patient is alert, oriented x 3, equal unlabored respirations, skin warm/dry/pink. Patient states feeling better. Patient states symptoms have improved. 03:00 Reassessment: Patient appears in no apparent distress at this time. Patient and/or pf1 family updated on plan of care and expected duration. Pain level reassessed. Patient is alert, oriented x 3, equal unlabored respirations, skin warm/dry/pink. Patient states symptoms have improved. 03:46 Reassessment: Patient appears in no apparent distress at this time. Patient and/or pf1 family updated on plan of care and expected duration. Pain level reassessed. Patient is alert, oriented x 3, equal unlabored respirations, skin warm/dry/pink. Patient states feeling better. Patient states symptoms have improved. 04:04 Reassessment: Patient report given to Johnsuture gauger with [facility]. Patient pf1 being transferred to [facility] at this time.. Vital Signs: 04/09 22:00 BP 144 / 60; Pulse 69; Resp 18; Temp 98.1; Pulse Ox 99% on R/A; Weight 46.72 kg; Height pf1 4 ft. 9 in. ; Pain 0/10; 23:00 BP 145 / 64; Pulse 63; Resp 16; Pulse Ox 100% on R/A; Pain 0/10; pf1 04/10 00:00 BP 175 / 53; Pulse 61; Resp 18; Pulse Ox 100% on R/A; Pain 0/10; pf1 01:00 BP 104 / 82; Pulse 66; Resp 15; Pulse Ox 100% on R/A; Pain 0/10; pf1 02:00 BP 98 / 45; Pulse 61; Resp 18; Pulse Ox 100% on R/A; Pain 0/10; pf1 03:00 BP 119 / 53; Pulse 72; Resp 17; Pulse Ox 100% on R/A; Pain 0/10; pf1 03:50 BP 156 / 60; Pulse 76; Resp 16; Pulse Ox 100% on R/A; Pain 0/10; pf1 04/09 22:00 Body Mass Index 22.29 (46.72 kg, 144.78 cm) pf1 04/09 22:00 Pain Scale: Adult pf1 23:00 Pain Scale: Adult pf1 04/10 00:00 Pain Scale: Adult pf1 01:00 Pain Scale: Adult pf1 02:00 Pain Scale: Adult pf1 03:00 Pain Scale: Adult pf1 03:50 Pain Scale: Adult pf1 ED Course: 04/09 21:58 Patient arrived in ED. as6 21:58 Patient has correct armband on for positive identification. Placed in gown. Bed in low pf1 position. Call light in reach. Side rails up X2. 22:00 No provider procedures requiring assistance completed. Maintain EMS IV. Dressing pf1 intact. Good blood return noted. Site clean \T\ dry. Gauge \T\ site: 22gauge to LAC. Patient maintains SpO2 saturation greater than 95% on room air. 22:00 Arm band placed on right wrist. pf1 22:04 Salvatore Combs MD is Attending Physician. sp4 22:28 XRAY Chest (1 view) In Process Unspecified. EDMS 22:47 Basic Metabolic Panel Sent. pf1 22:47 CBC with Diff Sent. pf1 22:47 LFT's Sent. pf1 22:47 Magnesium Sent. pf1 22:47 NT PRO-BNP Sent. pf1 22:47 PT-INR Sent. pf1 22:47 Troponin HS Sent. pf1 23:55 Initiated transfer with Gail at [facility]. rv1 04/10 00:00 Provided Education on: need for transfer. pf1 00:02 Triage completed. pf1 00:59 Doc to Doc with Transition Program Manager at [facility]. rv1 00:59 Pt accepted by Gail Lassiter will call back with bed assignment. rv1 02:38 Called [facility] transfer center to check on Bed assignment, given AA by Janie Driver. Pt rv1 accepted to [facility] 9B rm [id number]. 03:20 Called Claire at EMS for transfer truck, unable to provide one due to no suture gauger rv1 trucks available. Called [facility], ETA 25 minutes. 03:55 IV discontinued, intact, bleeding controlled, No redness/swelling at site. Pressure pf1 dressing applied. Administered Medications: 04/09 22:09 Drug: Aspirin PO Chewable Tablet 324 mg PO once; 81 mg tablets x 4 Route: PO; pf1 23:00 Follow up: Response: No adverse reaction; Marked relief of symptoms; Pain is decreased pf1 04/10 00:25 Drug: hydrALAZINE IVP 10 mg IVP once Route: IVP; Site: left antecubital; pf1 01:20 Follow up: Response: No adverse reaction; Marked relief of symptoms; Blood pressure is pf1 lowered 03:00 Drug: NS 0.9% IV 500 ml IV at bolus once Route: IV; Rate: bolus; Site: left antecubital;pf1 03:51 Follow up: Response: No adverse reaction; Marked relief of symptoms; Blood pressure is pf1 elevated; IV Status: Completed infusion; IV Intake: 500ml Medication: 03:55 VIS not applicable for this client. pf1 Intake: 03:51 IV: 500ml; Total: 500ml. pf1 Outcome: 03:19 ER care complete, transfer ordered by sp4 03:54 Transferred by ground EMS to [facility], Transfer form pf1 completed. X-rays sent w/ patient. 03:54 Condition: stable 03:54 Instructed on the need for transfer, Demonstrated understanding of instructions, Patient report given to ALEC Bennett at [facility] 04:05 Patient left the ED. pf1 Signatures: Dispatcher [employer] EDMS Migel Jerome RN RN as6 Ernestine Titus RN RN pf1 Kimmy Rudolph rv1 Salvatore Combs MD MD sp4 Corrections: (The following items were deleted from the chart) 00:02 04/09 21:58 Chief complaint: Patient states: left side burning chest pain of 9 that pf1 radiated to left arm and left neck,onset 2100. Patient stated with onset of pain was sitting in a recliner worrying about her sister that has cancer. Patient stated had pf1 04/10 03:44 03:38 General: Appears pf1 pf1 03:46 18 22:00 General: Appears in no apparent distress. comfortable, well groomed, well pf1 developed, Behavior is calm, cooperative, appropriate for age, quiet, pf1 04/10 03:47 00:00 BP 144 / 60; Pulse 69bpm; Resp 18bpm; Pulse Ox 99% RA; Temp 98.1F; 46.72 kg; pf1 Height 4 ft. 9 in.; BMI: 22.2; Pain 0/10, Adult; pf1
--- NOTE | 2023-04-10 03:19 | EDPHYS ---
Physician Documentation [facility] Name: Sherri Parekh Age: 78 yrs Sex: Female : 1945 Arrival Date: 04/09/2023 Time: 21:56 Bed 14 Private MD: ED Physician Salvatore Combs HPI: 04/09 22:05 This 78 yrs old Female presents to ER via Unassigned with complaints of chest sp4 pain. 23:51 78-year-old female with history of coronary artery disease history of left main sp4 coronary artery balloon and stent on Sunday 4 days ago at [facility], history of loop recorder, on aspirin and Plavix daily. Presents with EMS with a cute onset burning right-sided chest pain associated with shortness of breath. . 04/10 03:15 Patient presents today with EMS for acute onset chest pain left-sided burning type sp4 pain, associated with some shortness of breath. Patient has a loop monitor recording and patient had also stents placed left anterior descending artery as reported on 04/04/2023 at [facility]. Historical: - Allergies: 00:02 No Known Allergies; pf1 - PMHx: 00:02 CAD; Diabetes - NIDDM; High Cholesterol; Hypertension; pf1 - PSHx: 00:02 Coronary Angioplasty; Coronary artery bypass graft; pf1 - Immunization history:: Adult Immunizations up to date, Last tetanus immunization: > 10 years ago Flu vaccine is up to date. - Social history:: Smoking status: Patient denies any tobacco usage or history of. Patient/guardian denies using alcohol, street drugs. - Family history:: not pertinent. ROS: 03:15 Constitutional: Negative for fever, chills, and weight loss, Cardiovascular: Negative sp4 for palpitations, and edema, positive for chest pain 03:15 All other systems are negative, Exam: 03:15 Constitutional: This is a well developed, well nourished patient who is awake, alert, sp4 and in no acute distress. Head/Face: Normocephalic, atraumatic. Eyes: Pupils equal round and reactive to light, extra-ocular motions intact. Lids and lashes normal. Conjunctiva and sclera are not injected. Cornea within normal limits. Periorbital areas with no swelling, redness, or edema. ENT: Nares patent. No nasal discharge, no septal abnormalities noted. Tympanic membranes are normal and external auditory canals are clear. Oropharynx with no redness, swelling, or masses, exudates, or evidence of obstruction, uvula midline. Mucous membranes moist. Neck: Trachea midline, no thyromegaly or masses palpated, and no cervical lymphadenopathy. Supple, full range of motion without nuchal rigidity, or vertebral point tenderness. Chest/axilla: Normal chest wall appearance and motion. Nontender with no deformity. No lesions are appreciated. Cardiovascular: Regular rate and rhythm with a normal S1 and S2. No gallops, murmurs, or rubs. Normal PMI, no JVD. No pulse deficits. Respiratory: Lungs have equal breath sounds bilaterally, clear to auscultation and percussion. No rales, rhonchi or wheezes noted. No increased work of breathing, no retractions or nasal flaring. Abdomen/GI: Soft, non-tender, with normal bowel sounds. No distension or tympany. No guarding or rebound. No evidence of tenderness throughout. Back: No spinal tenderness. No costovertebral tenderness. Skin: Warm, dry with normal turgor. Normal color with no rashes, no lesions, and no evidence of cellulitis. MS/ Extremity: Pulses equal, no cyanosis. Neurovascular intact. Full, normal range of motion. Neuro: Awake and alert, GCS 15, oriented to person, place, time, and situation. Cranial nerves II-XII grossly intact. Motor strength 5/5 in all extremities. Sensory grossly intact. Psych: Awake, alert, with orientation to person, place and time. Behavior, mood, and affect are within normal limits 03:15 ECG was reviewed by the Attending Physician. Normal sinus rhythm normal EKG sp4 Vital Signs: 04/09 22:00 BP 144 / 60; Pulse 69; Resp 18; Temp 98.1; Pulse Ox 99% on R/A; Weight 46.72 kg; Height pf1 4 ft. 9 in. ; Pain 0/10; 23:00 BP 145 / 64; Pulse 63; Resp 16; Pulse Ox 100% on R/A; Pain 0/10; pf1 04/10 00:00 BP 175 / 53; Pulse 61; Resp 18; Pulse Ox 100% on R/A; Pain 0/10; pf1 01:00 BP 104 / 82; Pulse 66; Resp 15; Pulse Ox 100% on R/A; Pain 0/10; pf1 02:00 BP 98 / 45; Pulse 61; Resp 18; Pulse Ox 100% on R/A; Pain 0/10; pf1 03:00 BP 119 / 53; Pulse 72; Resp 17; Pulse Ox 100% on R/A; Pain 0/10; pf1 03:50 BP 156 / 60; Pulse 76; Resp 16; Pulse Ox 100% on R/A; Pain 0/10; pf1 04/09 22:00 Body Mass Index 22.29 (46.72 kg, 144.78 cm) pf1 04/09 22:00 Pain Scale: Adult pf1 23:00 Pain Scale: Adult pf1 04/10 00:00 Pain Scale: Adult pf1 01:00 Pain Scale: Adult pf1 02:00 Pain Scale: Adult pf1 03:00 Pain Scale: Adult pf1 03:50 Pain Scale: Adult pf1 MDM: 04/09 22:15 Patient medically screened. 4 04/10 03:15 Differential Diagnosis altered mental status, sepsis, flu. Data reviewed: vital signs, sp4 nurses notes, EMS record, old medical records, lab test result(s), EKG, radiologic studies, plain films. 03:15 Consideration of Admission/Observation Escalation of care including sp4 admission/observation considered. Management of patient was discussed with the following: Adhesive Primer: Discussed with [facility] cardiology. ED course: Patient has highly elevated troponin possibly from recent heart cath on 04/06/2023. However this should be evaluated at [facility]. Patient was discussed with [facility] and accepted for transfer. 04/09 22:05 Order name: Basic Metabolic Panel; Complete Time: 23:40 4 04/09 22:05 Order name: CBC with Diff; Complete Time: 23:40 4 04/09 22:05 Order name: LFT's; Complete Time: 23:40 4 04/09 22:05 Order name: Magnesium; Complete Time: 23:40 4 04/09 22:05 Order name: NT PRO-BNP; Complete Time: 23:40 4 04/09 22:05 Order name: PT-INR; Complete Time: 23:40 sp4 04/09 22:05 Order name: Troponin HS; Complete Time: 23:40 sp4 04/09 22:05 Order name: XRAY Chest (1 view); Complete Time: 23:40 sp4 04/09 22:05 Order name: EKG; Complete Time: 22:06 sp4 04/09 22:05 Order name: Cardiac monitoring; Complete Time: 22:47 sp4 04/09 22:05 Order name: EKG - Nurse/Tech; Complete Time: 22:07 sp4 04/09 22:05 Order name: IV Saline Lock; Complete Time: 22:07 sp4 04/09 22:05 Order name: Labs collected and sent; Complete Time: 22:47 sp4 04/09 22:05 Order name: O2 Per Protocol; Complete Time: :47 sp4 04/09 22:05 Order name: O2 Sat Monitoring; Complete Time: :47 sp4 EC:15 Rate is 72 beats/min. Rhythm is regular, Normal Sinus Rhythm. QRS [place] is Normal. [place] sp4 interval is normal. QRS interval is normal. QT interval is normal. No Q waves. T waves are Normal. Clinical impression: Normal ECG. Interpreted by me. Reviewed by me. Administered Medications: 04/09 22:09 Drug: Aspirin PO Chewable Tablet 324 mg PO once; 81 mg tablets x 4 Route: PO; pf1 23:00 Follow up: Response: No adverse reaction; Marked relief of symptoms; Pain is decreased pf1 04/10 00:25 Drug: hydrALAZINE IVP 10 mg IVP once Route: IVP; Site: left antecubital; pf1 01:20 Follow up: Response: No adverse reaction; Marked relief of symptoms; Blood pressure is pf1 lowered 03:00 Drug: NS 0.9% IV 500 ml IV at bolus once Route: IV; Rate: bolus; Site: left antecubital;pf1 03:51 Follow up: Response: No adverse reaction; Marked relief of symptoms; Blood pressure is pf1 elevated; IV Status: Completed infusion; IV Intake: 500ml Disposition Summary: 04/10/23 03:19 Transfer Ordered Notes: Transfer Location: [facility] sp4 Reason: Higher level of care sp4 Condition: Stable sp4 Problem: new sp4 Symptoms: are unchanged sp4 Accepting Physician: [facility] [place] 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
[2023-04-10] MEDS ORDERED: NA CHLORIDE 0.9% 500 ML ONE (03:32)
[2023-04-10 04:25] VITALS: TEMP 98.1
[2023-04-10 04:26] VITALS: O2SAT 100
[2023-04-10 04:35] VITALS: BP 156/60
--- NOTE | 2023-04-11 14:38 | EKG ---
Test Date: 2023-04-09 Test Time: 22:04:43 Pattern Maker: FLORINA MEASUREMENT RESULTS: Intervals: Rate: 73 WA: 122 QRSD: 66 QT: 404 QTc: 445 [place]: P: 45 WA: 122 QRS: 70 T: 60 INTERPRETIVE STATEMENTS: Normal sinus rhythm Normal ECG Compared to ECG 02/24/2022 20:00:11 Sinus bradycardia no longer present Electronically Signed On 04-11-23 14:33:19 CDT by Hung Chavez
== END 2023-04-10 04:05 | disposition short-term general hospital (02) ==
LOC: ER 21:56
DX: I21.4 Non-ST elevation (NSTEMI) myocardial infarction (principal); R77.8 Other specified abnormalities of plasma proteins; I10 Essential (primary) hypertension; I25.10 Atherosclerotic heart disease of native coronary artery without angina pectoris; Z95.1 Presence of aortocoronary bypass graft; Z98.61 Coronary angioplasty status
CPT/HCPCS: 93005; 85025; 80048; 36415; 83735; 85610; 80076; 84484; 83880; 71045; J0360; J7040

== ENCOUNTER 2024-05-22 21:18 | Emergency (ER) | payer OTHER ==
--- OUTSIDE RECORDS SUMMARY | 2024-05-22 21:27 | XMS REPORT | Continuity of Care Document ---
Author Name Unknown Address [address] [facility] [place] [address] [facility] Address [address] [facility] [place] [address] Care Team Providers Care Process Manager Name Role Phone CYDNEY STRICKLAND Primary Care Physician Unavailab Cydney Franco Attending Clinician Unavailable MACRINA PAIGE Attending Clinician Unavailable LIANG THORPE Attending Clinician Unavailable LIANG THORPE Attending Clinician Unavailable NAOMY BRAVO K.HAviva Attending Clinician Unavaila STEPHANIE Osuna Attending Clinician Unav STEPHANIE Helms Attending Clinician Unav VERITO Romero Attending Clinician Unavailable Gilles MORA, Verito Attending Clinician NAGA LAKHANI Attending Clinician Unavailable MICAELA HOWARD Attending Clinician Unavailab MICAELA Brantley Attending Clinician Unavailab Micaela Brantley DO Attending Clinician [phone] Ozzy MORA, Naomy K.H. Attending Clinician Liang Thorpe MD Attending Clinician [phone] Ozzy MORA, Naomy LorenzanaH. Attending Clinician [phone] [phone], [facility] Main Attending Clinician UnavailNaga Johns MD Attending Clinician [phone] NILAM FLORES Attending Clinician Unavailable NILAM FLORES Attending Clinician Unavailable Doctor Unassigned, Bonesteel Attending Clinician U navailable 2, Ad[facility] Lab Attending Clinician Unavailable Marly Hanley RN Attending Clinician Unavailab Noel Alcantar MD Attending Clinician [phone] PERLA POWERS Attending Clinician Unavaila rosario POWERS, PERLA Attending Clinician Unavaila Perla Hunt MD Attending Clinician [phone] YVONNE HAZEL Attending C linician Unavailable Isaiah Zacarias MD Attending Clinician [phone] Yvonne Hazel MD Attendin g Clinician 1, [facility] Attending Clinician Unavailable Griffin Fernandes MD Attending Clinician [phone] GRIFFIN FERNANDES Attending Clinician Unavailjosefina e Unassigned, Cath/Ep Attending Clinician Unavaila ROMEO Briggs Attending Clinician Unavailable Romeo Mendieta MD Attending Clinician + [phone] MARY MEJIA Attending Clinician Unavailab Mary Narvaez DO Attending Clinician [phone] BRANDON ARIAS Attending Clinician Unavailable Ivonne MORA, Brandon Attending Clinician [phone] PARDEEP ACOSTA Attending Clinician Unavailable PARDEEP ACOSTA Attending Clinician Unavailable Devon Hatch MD Attending Clinician + [phone] Only, Adc Test Attending Clinician Unavailable Argelia Mcdowell MD Attending Clinician [phone] ARGELIA MCDOWELL Attending Clinician Unavailable WALTER GALLARDO Attending Clinician Unavailable Nicolas Franco MD Attending Clinician Walter Gallardo MD Attending Clinician [phone] Yanely Zaidi Attending Clinician +[phone] RAE CANTOR Attending Clinician Unavail able Alexsander Jordan Attending Clinician +- [phone] ALEXSANDER FALCON Attending Clinician Unavailable Emilia Ortiz MD Attending Clinician [phone] EMILIA ORTIZ Attending Clinician Unavailabl YEYO Walker Attending Clinician Unavail able YEYO GODFREY Attending Clinician Unavail able Tech, [facility] Cardio Fac Attending Clinician Unavail able 2, [facility] Cardio Fac Room Attending Clinician Unava ilable Pc, [facility] Vascular Room 1 - Attending Clinician Un available MACRINA PAIGE Admitting Clinician Unavailable MICAELA HOWARD Admitting Clinician Unavailab LIANG Rey Admitting Clinician Unavailable STEPHANIE SYKES Admitting Clinician Unav NILAM Garcia Admitting Clinician Unavailable PERLA POWERS Admitting Clinician UnavailPerla Rojas MD Admitting Clinician + [phone] ISAIAH ZACARIAS Admitting Clinician Unavailable Isaiah Zacarias MD Admitting Clinician [phone] ROMEO MENDIETA Admitting Clinician Unavailable MARY MEJIA Admitting Clinician Unavailab BRANDON Cedeno Admitting Clinician Unavailable Brandon Arias MD Admitting Clinician PARDEEP ACOSTA Admitting Clinician Unavailable NAOMY BRAVO K.HAviva Admitting Clinician Unavaillanie Bravo MD Sendellie K.H. Admitting Clinician + [phone] WALTER GALLARDO Admitting Clinician Unavailable Walter Gallardo MD Admitting Clinician [phone] ALEXSANDER FALCON Admitting Clinician Unavailable Payers Payer Name Policy Type Policy Number Effective Date Expirati on Date Source [facility] [id number] 2020 00:00:00 [facility] MEDICARE 53 [id number] 2020 00:00:00 [facility] MEDICARE ERS [id number] 2016 00:00:00 Problems Condition Name Condition Details Condition Category Status Onset Date Resolution Date Last Treatment Date Treating Clinician Comments Source Peripheral arterial disease Peripheral arterial disease Disease Active 5-13 00:00: 00 [facility] Sinus pause Sinus pause Disease Active 2-08 00:00: 00 [facility] Chest pain, unspecifie d type Chest pain, unspecifie d type Disease Active 9-19 00:00: 00 [facility] Bilateral carotid artery stenosis Bilateral carotid artery stenosis Disease Active 8-16 00:00: 00 [facility] MANJARREZ (dyspnea on exertion) MANJARREZ (dyspnea on exertion) Disease Active 8-16 00:00: 00 [facility] PAD (periphera l artery disease) PAD (periphera l artery disease) Disease Active 8-16 00:00: 00 [facility] H/O carotid endarterec ramona H/O carotid endarterec ramona Disease Active 8-16 00:00: 00 [facility] Pericardia l effusion Pericardia l effusion Disease Active 8-16 00:00: 00 [facility] Syncope, unspecifie d syncope type Syncope, unspecifie d syncope type Disease Active 8-16 00:00: 00 [facility] Chest pain, cardiac Chest pain, cardiac Disease Active 8-16 00:00: 00 [facility] 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 Added automatic ally from request for surgery [id number] [facility] Abnormal nuclear stress test Abnormal nuclear stress test Disease Active 9-12 00:00: 00 Overview: Formattin g of this note might be different from the original. Added automatic ally from request for surgery [id number] [facility] Atheroscle rosis of shawnee artery of left lower extremity with intermitte nt claudicati on Atheroscle rosis of shaw[place] artery of left lower extremity with intermitte nt claudicati on Disease Active 03-23 00:00: 00 Overview: Formattin g of this note might be different from the original. Added automatic ally from request for surgery [id number] [facility] Atheroscle rosis of shaw[place] artery of left lower extremity with intermitte nt claudicati on Atheroscle rosis of shaw[place] artery of left lower extremity with intermitte nt claudicati on Disease Active 03-23 00:00: 00 Overview: Formattin g of this note might be different from the original. Added automatic ally from request for surgery [id number] [facility] Left arm pain Left arm pain Disease Active 2020-07 00:00: 00 [facility] Left arm numbness Left arm numbness Disease Active 2020-07 00:00: 00 [facility] Dyslipidem ia Dyslipidem ia Disease Active 03-30 00:00: 00 [facility] Chronic diastolic heart failure Chronic diastolic heart failure Disease Active 03-30 00:00: 00 [facility] Family history of premature CAD Family history of premature CAD Disease Active 03-30 00:00: 00 [facility] Coronary artery disease involving coronary bypass graft 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 angina pectoris Coronary artery disease involving coronary bypass graft 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 angina pectoris Disease Active 03-30 00:00: 00 [facility] Atypical chest pain Atypical chest pain Disease Active 03-29 00:00: 00 [facility] Dyspnea on exertion Dyspnea on exertion Disease Active 09-13 00:00: 00 [facility] Amnesia Memory changes Problem [facility] [id number] Coronary artery disease involving shawnee coronary artery of shawnee heart, unspecifie d whether angina present Problem [facility] Type II diabetes mellitus uncontroll ed Diabetes type 2, uncontroll ed Problem [facility] [id number] PAD (periphera l artery disease) Problem [facility] [id number] Other chronic pain Problem [facility] Incontinen ce of urine Incontinen ce of urine Problem [facility] Essential hypertensi on Benign essential HTN Problem [facility] [id number] Occlusion and stenosis of unspecifie d carotid artery Problem [facility] History of coronary artery bypass grafting History of coronary artery bypass graft Problem [facility] [id number] Frequency- urgency syndrome Problem [facility] Mixed hyperlipid emia Hyperlipid emia, mixed Problem [facility] [id number] Iron deficiency anemia, unspecifie d iron deficiency anemia type Problem [facility] [id number] Stress incontinen ce Problem [facility] [id number] Bilateral carotid artery disease, unspecifie d type Problem [facility] [id number] Anemia, unspecifie d type Problem [facility] [id number] Melanotic stools Problem [facility] [id number] Duodenitis Problem Comm [facility] [id number] +5th digit eff 04/22/20*GE RD with esophagiti s Problem [facility] [id number] GERD without esophagiti s Problem [facility] [id number] Type 2 diabetes mellitus with diabetic chronic kidney disease Problem [facility] [id number] Osteoporos is, unspecifie d osteoporos is type, unspecifie d pathologic al fracture presence Problem [facility] [id number] Cardiac pacemaker Problem [facility] [id number] Continuous urine leakage Problem [facility] Bladder spasm Bladder spasm Problem [facility] CHF (congestiv e heart failure) CHF (congestiv e heart failure) Disease Resolve d 09-13 00:00: 00 2018-03-30 00:00:00 2018-03-30 08:02:27 [facility] Pleural effusion Pleural effusion Disease Resolve d 08-25 00:00: 00 2018-03-30 00:00:00 2018-03-30 08:02:30 [facility] Allergies, Adverse Reactions, Alerts Allergy Name Allergy Type Status Severity Reaction(s) Onset Date Inactive Date Treating Clinician Comments Source NO KNOWN ALLERGIE S Drug Class Active [facility] Social History Social Habit Start Date Stop Date Quantity Comments Source History SDOH Social Connections Get Together [facility] History SDOH [facility]ctions [facility] SDOH Social Connections Membership [facility] History SDOH Social Connections Meetings [facility] of Tobacco Use [facility] Sex Assigned At [facility] Alcoholic beverage intake 2024-05-12 00:00:00 2024-05-12 00:00:00 Current non-drinker of alcohol (finding) [facility] History of Social function 2023-11-05 00:00:00 2023-11-05 00:00:00 [facility] Alcohol intake 2023-09-18 00:00:00 2023-09-18 00:00:00 Current non-drinker of alcohol (finding) [facility] Exposure to SARS-CoV-2 (event) 2022-12-09 00:00:00 2022-12-19 06:19:00 Not sure [facility] History SDOH Alcohol Frequency 2022-07-12 00:00:00 2022-07-12 00:00:00 1 [facility] History SDOH Alcohol Std Drinks 2022-07-12 00:00:00 2022-07-12 00:00:00 0 [facility] History SDOH Alcohol Binge 2022-07-12 00:00:00 2022-07-12 00:00:00 1 [facility] History SDOH Social Connections Phone 2022-07-12 00:00:00 2022-07-12 00:00:00 5 [facility] History SDOH Social Connections Living 2022-07-12 00:00:00 2022-07-12 00:00:00 4 [facility] History SDOH Physical Activity DPW 2022-07-12 00:00:00 2022-07-12 00:00:00 7 [facility] History SDOH Physical Activity MPS 2022-07-12 00:00:00 2022-07-12 00:00:00 3 [facility] History SDOH Financial 2022-07-12 00:00:00 2022-07-12 00:00:00 1 [facility] History SDOH Food Worry 2022-07-12 00:00:00 2022-07-12 00:00:00 1 [facility] History SDOH Food Scarcity 2022-07-12 00:00:00 2022-07-12 00:00:00 1 [facility] History SDOH Transport Med 2022-07-12 00:00:00 2022-07-12 00:00:00 2 [facility] History SDOH Transport Non-Med 2022-07-12 00:00:00 2022-07-12 00:00:00 2 [facility] Education 2022-07-11 00:00:00 2022-07-11 00:00:00 7 [facility] Tobacco use and exposure 2022-03-23 00:00:00 2022-03-23 00:00:00 Smokeless tobacco non-user [facility] Smoking Status Start Date Stop Date Source Never smoked tobacco [facility] Medications Ordered Medication Name Filled Medication Name Start Date Stop Date Current Medication? Ordering Clinician Indication Dosage Frequency Signature (SIG) Comments Components Source ketorolac (TORADOL) injection 15 mg 2023-07 18:15: 00 05-10 17:28 :00 No 15mg 15 mg, Slow IV Push, ONCE, 1 dose, On 05/10/24 at 1315, Routine [facility] famotidine (PEPCID (PF)) injection 20 mg 2023-07 17:30: 00 05-10 17:27 :00 No 20mg 20 mg, Slow IV Push, ONCE, 1 dose, On 05/10/24 at 1230, MARIELY [facility] aspirin chewable tablet 243 mg 2023-07 16:45: 00 05-10 16:08 :00 No 243mg 243 mg, Oral, ONCE, 1 dose, On 05/10/24 at 1145, Routine [facility] empaglifloz in (JARDIANCE) 10 mg tablet 2023-07 00:00: 00 Yes [id number] 10mg TAKE 1 TABLET BY MOUTH IN THE MORNING [facility] isosorbide mononitrate 120 mg 24 hr tablet 2023-07 0-16 00:00: 00 Yes [id number] 120mg TAKE 1 TABLET BY MOUTH IN THE MORNING [facility] Fluconazole 150 MG Fluconazole 150 MG 04-18 00:00: 00 No 1{table t} Fluconazol e 150 MG Ketoconazol e 2 % Ketoconazol e 2 % 04-18 00:00: 00 No 1{appli cation} QD Ketoconazo le 2 % metFORMIN (GLUCOPHAGE ) 500 mg tablet 01-13 13:24: 32 Yes 1000mg Take 2 tablets by mouth in the morning and 2 tablets in the evening. Take with meals. [facility] rosuvastati n 20 mg tablet 01-13 13:24: 32 Yes 20mg Take 1 tablet by mouth at bedtime. [facility] Cholecalcif jose, Vitamin D3, 50 mcg (2,000 unit) capsule 01-13 13:24: 32 Yes 2000U Take 1 capsule by mouth. [facility] JARDIANCE 10 mg tablet 01-10 00:00: 00 05-08 00:00 :00 No [id number] 10mg TAKE 1 TABLET BY MOUTH IN THE MORNING. [facility] rosuvastati n 20 mg tablet 01-03 11:32: 51 Yes 20mg Take 1 tablet by mouth at bedtime. [facility] isosorbide mononitrate 120 mg 24 hr tablet 12-30 00:00: 00 Yes [id number] 120mg Take 1 tablet by mouth in the morning. [facility] HYDROcodone -acetaminop hen (NORCO 5) 5-325 mg tablet 1 tablet 12-27 17:31: 32 12-27 20:41 :22 No 1{tbl} [facility] traMADoL (ULTRAM) tablet 50 mg 12-27 17:31: 32 12-27 20:41 :22 No 50mg [facility] acetaminoph en (TYLENOL) tablet 650 mg 12-27 17:31: 32 12-27 20:41 :22 No 650mg [facility] lactated ringers IV infusion 1,000 mL 12-27 16:15: 00 12-27 20:41 :22 No 1000mL at 75 mL/hr, 1,000 mL, IV Infusion, CONTINUOUS , Starting on Sun12/28/23 at 1115, Until Sun12/28/23 at 1541, Routine, PACU [facility] HYDROmorpho ne (DILAUDID) injection 0.2 mg 12-27 16:08: 58 12-27 20:41 :22 No .2mg 0.2 mg, Slow IV Push, Q5MIN PRN, 10 doses, Starting on Sun12/28/23 at 1108, Until Sun12/28/23 at 1541, Routine, Pain (scale 7-10), PACU, Is this medication approved by a Faculty level provider? 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 Restricted medication : PACU RECOVERY [facility] FENTanyl PF (SUBLIMAZE (PF)) injection 25 mcg 12-27 16:08: 58 12-27 20:41 :22 No 25ug 25 mcg, Slow IV Push, Q5MIN PRN, 4 doses, Starting on Sun12/28/23 at 1108, Until Sun12/28/23 at 1541, Routine, Pain (scale 4-6), PACU [facility] proMETHazin e (PHENERGAN) 12.5 mg in NS 50 mL IV piggyback (CNR) 12-27 16:08: 58 12-27 20:41 :22 No 12.5mg 12.5 mg, IV Piggyback, at 200 mL/hr Administer over 15 Minutes, PRN, 1 dose, Starting on Sun12/28/23 at 1108, Until 6/7/24 at 1541, Routine, Nausea and Vomiting (N/V), PACU [facility] iodixanoL (VISIPAQUE 270-150 mL) injection 12-27 15:58: 00 12-27 16:13 :46 No PRN, Starting on Sun12/28/23 at 1058, Until Sun12/28/23 at 1113, Routine, Intra-op [facility] lidocaine 1% (PF) (XYLOCAINE) injection 12-27 15:57: 00 12-27 16:13 :46 No PRN, Starting on Sun12/28/23 at 1057, Until Sun12/28/23 at 1113, Routine, Intra-op [facility] metFORMIN (GLUCOPHAGE ) 500 mg tablet 12-27 13:41: 21 Yes 1000mg Take 2 tablets by mouth in the morning and 2 tablets in the evening. Take with meals. [facility] rosuvastati n 20 mg tablet 12-27 13:41: 21 Yes 20mg Take 1 tablet by mouth at bedtime. [facility] Cholecalcif jose, Vitamin D3, 50 mcg (2,000 unit) capsule 12-27 13:41: 21 Yes 2000U Take 1 capsule by mouth. [facility] metFORMIN (GLUCOPHAGE ) 500 mg tablet 12-26 13:25: 31 Yes 1000mg Take 2 tablets by mouth in the morning and 2 tablets in the evening. Take with meals. [facility] rosuvastati n 20 mg tablet 12-26 13:25: 31 Yes 20mg Take 1 tablet by mouth at bedtime. [facility] ISOSORBIDE MONONITRATE 120 mg 24 hr tablet -15 00:00: 00 12-29 00:00 :00 No [id number] 120mg TAKE 1 TABLET BY MOUTH IN THE MORNING [facility] iopamidol (ISOVUE 370-500 mL) injection 90 mL -19 18:15: 00 11-08 18:19 :00 No [id number] 90mL 90 mL, Intravenou s, ONCE, 1 dose, On Sun11/09/23 at 1330, Routine [facility] Cholecalcif jose, Vitamin D3, 50 mcg (2,000 unit) capsule 11-04 10:56: 00 Yes 2000U Take 1 capsule by mouth. [facility] empaglifloz in (JARDIANCE) 10 mg tablet 10-15 00:00: 00 Yes [id number] 10mg Take 1 tablet by mouth in the morning. [facility] lidocaine 1% (PF) (XYLOCAINE) injection 09-20 14:11: 34 09-20 15:19 :33 No ONCE INTRA PROCEDURE, Starting on Sun09/21/23 at 0811, Until Sun09/21/23 at 0919, Routine, CV Intraproce dure [facility] iodixanol (VISIPAQUE 320-100 mL) injection 09-20 13:46: 21 09-20 15:19 :33 No ONCE INTRA PROCEDURE, Starting on Sun09/21/23 at 0746, Until Sun09/21/23 at 09, Routine, CV Intraproce dure [facility] metFORMIN (GLUCOPHAGE ) 500 mg tablet 09-20 11:47: 26 Yes 1000mg Take 2 tablets by mouth in the morning and 2 tablets in the evening. Take with meals. [facility] rosuvastati n 20 mg tablet 09-20 11:47: 26 Yes 20mg Take 1 tablet by mouth at bedtime. [facility] Cholecalcif jose, Vitamin D3, 50 mcg (2,000 unit) capsule 09-20 11:47: 26 Yes 2000U Take 1 capsule by mouth. [facility] rosuvastati n 20 mg tablet 08-30 10:15: 58 Yes 20mg Take 1 tablet by mouth at bedtime. [facility] FreeStyle Lancets - FreeStyle Lancets - 08-15 00:00: 00 No FreeStyle Lancets - FreeStyle Lite Test - FreeStyle Lite Test - 2024-0 1-24 00:00: 00 No BID FreeStyle Lite Test - FreeStyle Control Solution - FreeStyle Control Solution - 1-24 00:00: 00 No FreeStyle Control Solution - FreeStyle Lite - FreeStyle Lite - 1-24 00:00: 00 No FreeStyle Lite - CLOPIDOGREL 75 mg tablet 1-11 00:00: 00 Yes [id number] 75mg TAKE 1 TABLET BY MOUTH IN THE MORNING [facility] empaglifloz in (JARDIANCE) 10 mg 2022-07 2 00:00: 00 Yes [id number] 10mg Take 1 tablet by mouth in the morning. [facility] amLODIPine 10 mg tablet 2022-07 00:00: 00 Yes [id number] 10mg Take 1 tablet by mouth every evening. [facility] lisinopriL 10 mg tablet 2022-07 00:00: 00 Yes [id number] 10mg Take 1 tablet by mouth in the morning and 1 tablet in the evening. [facility] lisinopriL 10 mg tablet 2022-07 00:00: 00 Yes [id number] 10mg Take 1 tablet by mouth in the morning and 1 tablet in the evening. [facility] rosuvastati n 20 mg tablet 2022-07 10:45: 33 Yes 20mg Take 1 tablet by mouth at bedtime. [facility] isosorbide mononitrate 120 mg 24 hr tablet 2022-07 2 00:00: 00 Yes [id number] 120mg Take 1 tablet by mouth in the morning. [facility] isosorbide mononitrate 30 mg 24 hr tablet 2022-07 1-29 00:00: 00 06-29 00:00 :00 No [id number] 90mg Take 3 tablets by mouth in the morning. [facility] isosorbide mononitrate 30 mg 24 hr tablet 2022-07 0-31 00:00: 00 06-19 00:00 :00 No [id number] 90mg Take 3 tablets by mouth in the morning. [facility] isosorbide mononitrate (IMDUR) 24 hr tablet 120 mg 2022-07 14:00: 00 Yes 120mg 120 mg, Oral, DAILY, First dose (after last modificati on) on 05/20/23 at 0900, Until Discontinu ed, Routine [facility] aspirin (SEDRICK CHEWABLE ASPIRIN) 81 mg chewable tablet 2022-07 00:00: 00 Yes 81mg Take 1 tablet by mouth in the morning. Indication s: takes 2 per day [facility] isosorbide mononitrate 120 mg 24 hr tablet 2022-07 00:00: 00 05-22 00:00 :00 No [id number] 120mg Take 1 tablet by mouth in the morning. [facility] amLODIPine (NORVASC) tablet 10 mg 2022-07 22:00: 00 Yes 10mg 10 mg, Oral, QPM, First dose (after last modificati on) on 05/19/23 at 1700, Until Discontinu ed, Routine [facility] metFORMIN (GLUCOPHAGE ) 500 mg tablet 2022-07 17:14: 05 Yes 1000mg Take 2 tablets by mouth in the morning and 2 tablets in the evening. Take with meals. [facility] rosuvastati n 20 mg tablet 2022-07 17:14: 05 Yes 20mg Take 1 tablet by mouth at bedtime. [facility] Cholecalcif jose, Vitamin D3, 50 mcg (2,000 unit) capsule 2022-07 17:14: 05 Yes 2000U Take 1 capsule by mouth. [facility] enoxaparin (LOVENOX) injection 40 mg 2022-07 14:00: 00 Yes 40mg 40 mg, Subcutaneo us, DAILY, First dose on 05/19/23 at 0900, Until Discontinu ed, Routine [facility] clopidogreL (PLAVIX) 75 mg tablet 75 mg 2022-07 14:00: 00 Yes 75mg 75 mg, Oral, DAILY, First dose on 05/19/23 at 0900, Until Discontinu ed, Routine [facility] aspirin chewable tablet 81 mg 2022-07 14:00: 00 Yes 81mg 81 mg, Oral, DAILY, First dose on Sun05/19/23 at 0900, Until Discontinu ed [facility] SEDIRCK CHEWABLE ASPIRIN ORAL 2022-07 13:53: 31 05-19 00:00 :00 No 81mg Take 81 mg by mouth. Indication s: takes 2 per day [facility] metoprolol tartrate (LOPRESSOR) tablet 50 mg 2022-07 13:00: 00 Yes 50mg 50 mg, Oral, BID MEALS, First dose on Sun05/19/23 at 0800, Until Discontinu ed, Routine [facility] Sliding Scale Insulin - Lispro (HumaLOG) 2022-07 02:00: 00 Yes Subcutaneo us, TID MEALS+HS, First dose on Sun05/18/23 at 2100, Until Discontinu ed, Routine [facility] rosuvastati n (CRESTOR) tablet 20 mg 2022-07 02:00: 00 Yes 20mg 20 mg, Oral, QHS, First dose on Sun05/18/23 at 2100, Until Discontinu ed, Routine [facility] lisinopriL (PRINIVIL,Z ESTRIL) tablet 10 mg 2022-07 01:00: 00 Yes 10mg 10 mg, Oral, BID, First dose on Sun05/18/23 at 2000, Until Discontinu ed, Routine [facility] nitroglycer in 0.4 mg sublingual tablet 2022-07 00:00: [id number] 1 tablet under the tongue every 5 (five) minutes as needed for Chest pain. [facility] ferrous sulfate 325 mg (65 mg iron) EC tablet 2022-07 00:00: 00 Yes [id number] 325mg Take 1 tablet by mouth every 48 (forty-eig ht) hours. [facility] amLODIPine 10 mg tablet 2022-07 00:00: 00 07-16 00:00 :00 No [id number] 10mg Take 1 tablet by mouth every evening. [facility] empaglifloz in (JARDIANCE) 10 mg 2022-07 00:00: 00 07-16 00:00 :00 No [id number] 10mg Take 1 tablet by mouth in the morning. [facility] dextrose 10% (D10W) bolus infusion 250 mL 2022-07 23:35: 17 Yes 250mL 250 mL, IV Infusion, PRN - SEE INSTRUCTIO NS, Administer over 60 Minutes, Other, If blood glucose is < or = 70 mg/dL and patient is unable to swallow or has mental status changes, Starting on Sun05/18/23 at 1835
If blood glucose is < or = 70 mg/dL and patient is unable to swallow or has mental status changes (Give glucagon order if patient needs fluid restrictio n): IF IV access available: Dextrose 10%. 1. 125 mL (? bag) of D10W IV infusion - equivalent to 12.5 g dextrose 2. Blood glucose - draw blood glucose 15 minutes after D10W Administra tion. 3. If blood glucose is < 80 mg/dL, repeat.
[facility] glucagon (GLUCAGEN DIAGNOSTIC KIT) injection 1 mg 2022-07 23:35: 14 Yes 1mg 1 mg, Intramuscu lar, PRN, Starting on Sun05/18/23 at 1835, Until Discontinu ed, MARIELY, Blood Glucose < or = 70 mg/dL and patient is NPO, unable to swallow or has mental changes. [facility] acetaminoph en (TYLENOL) tablet 650 mg 2022-07 23:31: 49 Yes 650mg 650 mg, Oral, Q6HPRN, Starting on Sun05/18/23 at 1831, Until Discontinu ed, Routine, Pain (scale 1-3) [facility] nitroglycer in (NITROSTAT) sublingual tablet 0.4 mg 2022-07 23:30: 42 Yes .4mg 0.4 mg, Sublingual , Q5MIN PRN, Starting on Sun05/18/23 at 1830, Until Discontinu ed, Routine, Chest pain [facility] aspirin chewable tablet 324 mg 2022-07 17:00: 00 05-18 16:27 :00 No 324mg 324 mg, Oral, ONCE, 1 dose, On Sun05/18/23 at 1200, Routine [facility] isosorbide mononitrate 30 mg 24 hr tablet 2022-07 00:00: 00 05-19 00:00 :00 No [id number] 90mg Take 3 tablets by mouth in the morning. [facility] metFORMIN (GLUCOPHAGE ) 500 mg tablet 2022-07 08:34: 36 Yes 1000mg Take 2 tablets by mouth in the morning and 2 tablets in the evening. Take with meals. [facility] SEDRICK CHEWABLE ASPIRIN ORAL 2022-07 08:34: 36 Yes 81mg Take 81 mg by mouth. Indication s: takes 2 per day [facility] rosuvastati n 20 mg tablet 2022-07 08:34: 36 Yes 20mg Take 1 tablet by mouth at bedtime. [facility] Cholecalcif jose, Vitamin D3, 50 mcg (2,000 unit) capsule 2022-07 08:34: 36 Yes 2000U Take 1 capsule by mouth. [facility] amLODIPine 2.5 mg tablet 2022-07 00:00: 00 05-19 00:00 :00 No 5mg Take 2 tablets by mouth every evening. [facility] SEDRICK CHEWABLE ASPIRIN ORAL 04-20 09:47: 02 Yes 81mg Take 81 mg by mouth. Indication s: takes 2 per day [facility] rosuvastati n 20 mg tablet 04-20 09:47: 02 Yes 20mg Take 1 tablet by mouth at bedtime. [facility] amLODIPine 2.5 mg tablet 04-20 00:00: 00 05-07 00:00 :00 No [id number] 2.5mg Take 1 tablet by mouth every evening. [facility] isosorbide mononitrate (IMDUR) 24 hr tablet 90 mg 04-11 14:00: 00 Yes 90mg 90 mg, Oral, DAILY, First dose (after last modificati on) on Sun04/11/23 at 0900, Until Discontinu ed, Routine [facility] rosuvastati n (CRESTOR) tablet 20 mg 04-11 02:00: 00 Yes 20mg 20 mg, Oral, QHS, First dose on Sun04/10/23 at 2100, Until Discontinu ed, Routine [facility] isosorbide mononitrate 30 mg 24 hr tablet 04-11 00:00: 00 05-17 00:00 :00 No [id number] 90mg Take 3 tablets by mouth in the morning. [facility] metFORMIN (GLUCOPHAGE ) 500 mg tablet 04-10 17:47: 38 Yes 1000mg Take 2 tablets by mouth in the morning and 2 tablets in the evening. Take with meals. [facility] SEDRICK CHEWABLE ASPIRIN ORAL 04-10 17:47: 38 Yes 81mg Take 81 mg by mouth. Indication s: takes 2 per day [facility] rosuvastati n 20 mg tablet 04-10 17:47: 38 Yes 20mg Take 1 tablet by mouth at bedtime. [facility] Cholecalcif jose, Vitamin D3, 50 mcg (2,000 unit) capsule 04-10 17:47: 38 Yes 2000U Take 1 capsule by mouth. [facility] isosorbide mononitrate (IMDUR) 24 hr tablet 30 mg 04-10 17:45: 00 04-10 22:04 :00 No 30mg 30 mg, Oral, ONCE, 1 dose, On Sun04/10/23 at 1245, Routine [facility] sulfur hexafluorid e microsphr (LUMASON) injection 5 mL 04-10 15:30: 00 04-10 15:30 :00 No [id number] 5mL 5 mL, Intravenou s, ONCE, 1 dose, On Sun04/10/23 at 1030, Routine
defence force member other ranks approving Restricted medication : ISAIAH ZACARIAS [facility] clopidogreL (PLAVIX) 75 mg tablet 75 mg 04-10 14:00: 00 Yes 75mg 75 mg, Oral, DAILY, First dose on Sun04/10/23 at 0900, Until Discontinu ed, Routine [facility] aspirin chewable tablet 81 mg 04-10 14:00: 00 Yes 81mg 81 mg, Oral, DAILY, First dose on Sun04/10/23 at 0900, Until Discontinu ed [facility] isosorbide mononitrate (IMDUR) 24 hr tablet 60 mg 04-10 14:00: 00 04-10 13:59 :54 No 60mg 60 mg, Oral, DAILY, First dose on Sun04/10/23 at 0900, Until Discontinu ed, Routine [facility] Sliding Scale Insulin - Lispro (HumaLOG) 04-10 13:00: 00 Yes Subcutaneo us, TID MEALS+HS, First dose on Sun04/10/23 at 0800, Until Discontinu ed, Routine [facility] metoprolol tartrate (LOPRESSOR) tablet 50 mg 04-10 13:00: 00 Yes 50mg 50 mg, Oral, BID MEALS, First dose on Sun04/10/23 at 0800, Until Discontinu ed, Routine [facility] lisinopriL (PRINIVIL,Z ESTRIL) tablet 10 mg 04-10 13:00: 00 Yes 10mg 10 mg, Oral, BID, First dose on Sun04/10/23 at 0800, Until Discontinu ed, Routine [facility] heparin 25,000 Units/250 mL (Premixed Bag) in D5W 04-10 11:14: 07 Yes 0U/h 0-2,150 Units/hr (0-21.5 mL/hr), IV Infusion, TITRATE, Parameters in Admin. Instr., Starting on Sun04/10/23 at 0614
In itiate dosing:&nb sp; & nbsp;&nbsp ; -Patient 83 kg or under: 550 Units/hr (Calculate d dose at 12 units/kg/h r) &n bsp; &nbs p; -Patient over 83 k,000 units/hr&n bsp;DO NOT Exceed the MAXIMUM 1,000 units/hr for initiation of heparin drip.&nbsp ; CAU TION - If LMWH given in ER, AVOID bolus and start next dose/drip 12 hrs after ER dosage.&nb sp; M ust program rate using programmab le infusion pump.&nbsp ; Alycia ck with the ordering provider first prior to any administra tion should the patient be on existing/a dditional anticoagul ant therapy. Rang e, Dosing and Testing: &nbs p;FOR [place], [facility], AND [facility] ONLY &nbs p; - aPTT < 35: & nbsp;Bolus 5000 units, increase rate 300 units/hr&n bsp; - aPTT 35-44:&nbs p; Devang marco antonio 3000 units, increase rate 200 units/hr&n bsp; - aPTT 45-54:&nbs p; In crease rate 100 units/hr&n bsp; - aPTT 55-85:&nbs p; NO CHANGE&nbs p; - aPTT 86-95:&nbs p; De crease rate 100 units/hr&n bsp; - aPTT 96-120:&nb sp; H old 30 minutes, decrease rate 150 units/hr&n bsp; - aPTT > 120: Hold 60 minutes, decrease rate 200 units/hr&n bsp; Check aPTT 6 hours after initiation , then Q6H after every change, aPTT Q12H once therapeuti c levels are reached.&n bsp; &nbs p; __ &n bsp;FOR [facility] ONLY - aPTT < 40: & nbsp;Bolus 5000 units, increase rate 300 units/hr&n bsp; - aPTT 40-49:&nbs p; Devang marco antonio 3000 units, increase rate 200 units/hr&n bsp; - aPTT 50-59:&nbs p; In crease rate 100 units/hr&n bsp; - aPTT 60-85:&nbs p; NO CHANGE&nbs p; - aPTT 86-95:&nbs p; De crease rate 100 units/hr&n bsp; - aPTT 96-120:&nb sp; H old 30 minutes, decrease rate 150 units/hr&n bsp; - aPTT > 120: Hold 60 minutes, decrease rate 200 units/hr&n bsp; Check aPTT 6 hours after initiation , then Q6H after every change, aPTT Q12H once therapeuti c levels are reached.&n bsp;&n bsp; DO NOT ADJUST INITIAL BOLUS OR INITIAL INFUSION RATE.
[facility] heparin (1,000 unit/mL, 10 mL vial) for Rebolusing 04-10 11:14: 04 Yes 3000U FOR REBOLUSING , Starting on Sun04/10/23 at 0614, Until Discontinu ed, Routine
Dosing based on aPPT testing parameters (refer to continuous heparin drip order).
[facility] dextrose 10% (D10W) bolus infusion 250 mL 04-10 11:08: 38 Yes 250mL 250 mL, IV Infusion, PRN - SEE INSTRUCTIO NS, Administer over 60 Minutes, Other, If blood glucose is < or = 70 mg/dL and patient is unable to swallow or has mental status changes, Starting on Sun04/10/23 at 0608
If blood glucose is < or = 70 mg/dL and patient is unable to swallow or has mental status changes (Give glucagon order if patient needs fluid restrictio n): IF IV access available: Dextrose 10%. 1. 125 mL (? bag) of D10W IV infusion - equivalent to 12.5 g dextrose 2. Blood glucose - draw blood glucose 15 minutes after D10W Administra tion. 3. If blood glucose is < 80 mg/dL, repeat.
[facility] glucagon (GLUCAGEN DIAGNOSTIC KIT) injection 1 mg 04-10 11:08: 36 Yes 1mg 1 mg, Intramuscu lar, PRN, Starting on Sun04/10/23 at 0608, Until Discontinu ed, MARIELY, Blood Glucose < or = 70 mg/dL and patient is NPO, unable to swallow or has mental changes. [facility] acetaminoph en (TYLENOL) tablet 650 mg 04-10 10:46: 56 Yes 650mg 650 mg, Oral, Q6HPRN, Starting on Sun04/10/23 at 0546, Until Discontinu ed, Routine, Pain (scale 1-3) [facility] metFORMIN (GLUCOPHAGE ) 500 mg tablet 04-10 05:48: 37 Yes 1000mg Take 2 tablets by mouth in the morning and 2 tablets in the evening. Take with meals. [facility] SEDRICK CHEWABLE ASPIRIN ORAL 04-10 05:48: 37 Yes 81mg Take 81 mg by mouth. Indication s: takes 2 per day [facility] rosuvastati n 20 mg tablet 04-10 05:48: 37 Yes 20mg Take 1 tablet by mouth at bedtime. [facility] Cholecalcif jose, Vitamin D3, 50 mcg (2,000 unit) capsule 04-10 05:48: 37 Yes 2000U Take 1 capsule by mouth. [facility] nitroglycer in 0.4 mg sublingual tablet 04-10 00:00: 00 05-19 00:00 :[id number] 1 tablet under the tongue every 5 (five) minutes as needed for Chest pain. [facility] clopidogreL (PLAVIX) 75 mg tablet 75 mg 04-08 14:00: 00 Yes 75mg 75 mg, Oral, DAILY, First dose on 04/08/23 at 0900, Until Discontinu ed, Routine [facility] metFORMIN (GLUCOPHAGE ) 500 mg tablet 04-07 15:41: 46 Yes 1000mg Take 2 tablets by mouth in the morning and 2 tablets in the evening. Take with meals. [facility] SEDRICK CHEWABLE ASPIRIN ORAL 04-07 15:41: 46 Yes 81mg Take 81 mg by mouth. Indication s: takes 2 per day [facility] rosuvastati n 20 mg tablet 04-07 15:41: 46 Yes 20mg Take 1 tablet by mouth at bedtime. [facility] Cholecalcif jose, Vitamin D3, 50 mcg (2,000 unit) capsule 04-07 15:41: 46 Yes 2000U Take 1 capsule by mouth. [facility] isosorbide mononitrate (IMDUR) 24 hr tablet 60 mg 04-07 14:00: 00 Yes 60mg 60 mg, Oral, DAILY, First dose on 04/07/23 at 0900, Until Discontinu ed, Routine [facility] aspirin chewable tablet 81 mg 04-07 14:00: 00 Yes 81mg 81 mg, Oral, DAILY, First dose on 04/07/23 at 0900, Until Discontinu ed [facility] docusate (COLACE) capsule 100 mg 04-07 14:00: 00 Yes 100mg 100 mg, Oral, DAILY, First dose on 04/07/23 at 0900, Until Discontinu ed, Routine [facility] clopidogreL (PLAVIX) 300 mg tablet 300 mg 04-07 13:00: 00 04-07 13:42 :00 No 300mg 300 mg, Oral, ONCE, 1 dose, On 04/07/23 at 0800, Routine [facility] rosuvastati n (CRESTOR) tablet 20 mg 04-07 02:00: 00 Yes 20mg 20 mg, Oral, QHS, First dose on Sun04/06/23 at 2100, Until Discontinu ed, Routine [facility] lisinopriL (PRINIVIL,Z ESTRIL) tablet 10 mg 04-07 01:00: 00 Yes 10mg 10 mg, Oral, BID, First dose on Sun04/06/23 at 2000, Until Discontinu ed, Routine [facility] heparin (porcine) injection 5,000 Units 04-07 01:00: 00 Yes 5000U 5,000 Units, Subcutaneo us, Q12H, First dose on Sun04/06/23 at 2000, Until Discontinu ed, Routine [facility] ticagrelor (BRILINTA) tablet 90 mg 04-07 01:00: 00 04-07 13:43 :00 No 90mg 90 mg, Oral, BID, 2 doses, First dose on Sun04/06/23 at 2000, Last dose on Sun04/07/23 at 0800, [facility] - Lispro (HumaLOG) 04-06 22:00: 00 Yes Subcutaneo us, TID MEALS+HS, First dose on Sun04/06/23 at 1700, Until Discontinu ed, Routine [facility] metoprolol tartrate (LOPRESSOR) tablet 50 mg 04-06 22:00: 00 Yes 50mg 50 mg, Oral, BID MEALS, First dose on Sun04/06/23 at 1700, Until Discontinu ed, Routine [facility] glucagon (GLUCAGEN DIAGNOSTIC KIT) injection 1 mg 04-06 20:23: 25 Yes 1mg 1 mg, Intramuscu lar, PRN, Starting on Sun04/06/23 at 1523, Until Discontinu ed, MARIELY, Blood Glucose < or = 70 mg/dL and patient is NPO, unable to swallow or has mental changes. [facility] dextrose 50 % in water (D50W) injection 25 mL 04-06 20:23: 25 Yes 25mL 25 mL, Slow IV Push, PRN, Starting on Sun04/06/23 at 1523, Until Discontinu ed, MARIELY, Blood Glucose < or = 70 mg/dL and patient is NPO, unable to swallow or has mental status changes. [facility] NaCl 0.9% (NS) IV infusion 1,000 mL 04-06 20:15: 00 04-07 04:14 :00 No 1000mL at 50 mL/hr, IV Infusion, CONTINUOUS , Starting on Sun04/06/23 at 1515, Until Sun04/06/23 at 2314, Routine [facility] acetaminoph en (TYLENOL) tablet 650 mg 04-06 19:53: 55 Yes 650mg 650 mg, Oral, Q6HPRN, Starting on Sun04/06/23 at 1453, Until Discontinu ed, Routine, Pain (scale 1-3) [facility] acetaminoph en-codeine (TYLENOL #3) 300-30 mg tablet 1 tablet 04-06 19:53: 55 04-08 19:52 :55 No 1{tbl} 1 tablet, Oral, Q6HPRN, Starting on Sun04/06/23 at 1453, Until Sun04/08/23 at 1452, Routine, Pain (scale 4-6) [facility] acetaminoph en (TYLENOL) tablet 650 mg 04-06 18:45: 00 04-06 17:59 :00 No [id number] 650mg 650 mg, Oral, ONCE, 1 dose, On Sun04/06/23 at 1345, Routine [facility] ticagrelor (BRILINTA) tablet 04-06 16:51: 53 04-06 17:08 :07 No ONCE INTRA PROCEDURE, Starting on Sun04/06/23 at 1151, Until Sun04/06/23 at 1208, Routine, CV Intraproce dure [facility] iodixanol (VISIPAQUE 320-100 mL) injection 04-06 16:50: 12 04-06 17:12 :30 No ONCE INTRA PROCEDURE, Starting on Sun04/06/23 at 1150, Until Sun04/06/23 at 1212, Routine, CV Intraproce dure [facility] adenosine 6 mg/1000 mL INTRACORONA RY injection for DIGITIZER 04-06 16:41: 45 04-06 17:08 :07 No ONCE INTRA PROCEDURE, Starting on Sun04/06/23 at 1141, Until Sun04/06/23 at 1208, Routine, CV Intraproce dure [facility] nitroglycer in (TRIDIL) 2 mg in 10 mL D5W for Cardiac Cath 04-06 16:41: 02 04-06 17:08 :07 No ONCE INTRA PROCEDURE, Starting on Sun04/06/23 at 1141, Until Sun04/06/23 at 1208, Routine, CV Intraproce dure [facility] heparin 1,000 unit/mL injection 04-06 16:11: 10 04-06 17:08 :07 No ONCE INTRA PROCEDURE, Starting on Sun04/06/23 at 1111, Until Sun04/06/23 at 1208, Routine, CV Intraproce dure [facility] hydralAZINE (APRESOLINE ) injection 04-06 16:09: 16 04-06 17:08 :07 No ONCE INTRA PROCEDURE, Starting on Sun04/06/23 at 1109, Until Sun04/06/23 at 1208, STAT, CV Intraproce [facility] NaCl 0.9% (NS) bolus infusion 04-06 15:42: 10 04-06 17:08 :07 No CONTINUOUS PRN, Starting on Sun04/06/23 at 1042, Until Sun04/06/23 at 1208, STAT, CV Intraproce dure [facility] lidocaine 1% (PF) (XYLOCAINE) injection 04-06 15:29: 38 04-06 17:08 :07 No ONCE INTRA PROCEDURE, Starting on Sun04/06/23 at 1029, Until Sun04/06/23 at 1208, Routine, CV Intraproce dure [facility] FENTanyl PF (SUBLIMAZE (PF)) injection 04-06 15:23: 19 04-06 17:08 :07 No ONCE INTRA PROCEDURE, Starting on Sun04/06/23 at 1023, Until Sun04/06/23 at 1208, Routine, CV Intraproce dure [facility] midazolam (VERSED) injection 04-06 15:23: 01 04-06 17:08 :07 No ONCE INTRA PROCEDURE, Starting on Sun04/06/23 at 1023, Until Sun04/06/23 at 1208, Routine, CV Intraproce dure [facility] dapaglifloz in ([facility]) 10 mg tablet 04-06 15:01: 54 04-06 00:00 :00 No 1 By Mouth Daily for 90 [facility] ferrous sulfate 325 mg (65 mg iron) EC tablet 04-06 15:01: 54 04-06 00:00 :00 No 1 tablet Orally Twice a day for 90 [facility] SEDRICK CHEWABLE ASPIRIN ORAL 03-07 11:12: 11 Yes 81mg Take 81 mg by mouth. Indication s: takes 2 per day [facility] rosuvastati n 20 mg tablet 03-07 11:12: 09 Yes 20mg Take 1 tablet by mouth at bedtime. [facility] dapaglifloz in ([facility]) 10 mg tablet 03-07 11:12: 06 Yes 1 By Mouth Daily for 90 [facility] ferrous sulfate 325 mg (65 mg iron) EC tablet 03-07 10:50: 02 Yes 1 tablet Orally Twice a day for 90 [facility] lisinopriL 10 mg tablet 03-07 00:00: 00 07-13 00:00 :00 No [id number] 10mg Take 1 tablet by mouth in the morning and 1 tablet in the evening. [facility] isosorbide mononitrate 60 mg 24 hr tablet 2023-0 8-16 00:00: 00 04-10 00:00 :00 No [id number] 60mg Take 1 tablet by mouth in the morning. [facility] clopidogreL 75 mg tablet 6-06 00:00: 00 08-02 00:00 :00 No [id number] 75mg Take 1 tablet by mouth in the morning. [facility] lidocaine 1% (PF) (XYLOCAINE) injection 12-19 12:42: 44 12-19 12:50 :52 No ONCE INTRA PROCEDURE, Starting on Sun12/19/22 at 0742, Until Sun12/19/22 at 0750, Routine, CV Intraproce dure [facility] vancomycin 1000 mg in NS 200 mL RTU IV Piggyback 12-19 12:40: 00 12-19 12:40 :00 No CONTINUOUS PRN, Starting on Sun12/19/22 at 0740, Until Sun12/19/22 at 0740, Administer over 60 Minutes, CV Intraproce dure [facility] metFORMIN (GLUCOPHAGE ) 500 mg tablet 12-19 09:46: 11 Yes 1000mg Take 1,000 mg by mouth 2 (two) times daily with meals. [facility] SEDRICK CHEWABLE ASPIRIN ORAL 12-19 09:46: 11 Yes 81mg Take 81 mg by mouth. Indication s: takes 2 per day [facility] rosuvastati n 20 mg tablet 12-19 09:46: 11 Yes 20mg Take 1 tablet by mouth at bedtime. [facility] Cholecalcif jose, Vitamin D3, 50 mcg (2,000 unit) capsule 12-19 09:46: 11 Yes 2000U Take 2,000 Units by mouth. [facility] dapaglifloz in (FARXIGA) 10 mg tablet 12-19 09:46: 11 Yes 1 By Mouth Daily for 90 [facility] ferrous sulfate 325 mg (65 mg iron) EC tablet 12-19 09:46: 11 Yes 1 tablet Orally Twice a day for 90 [facility] doxycycline hyclate 100 mg capsule 30 00:00: 00 04-06 00:00 :00 No [id number] 100mg Take 1 capsule by mouth every 12 (twelve) hours. [facility] dapaglifloz in (FARXIGA) 10 mg tablet 12-12 10:46: 21 Yes 1 By Mouth Daily for 90 [facility] ferrous sulfate 325 mg (65 mg iron) EC tablet 12-12 10:46: 21 Yes 1 tablet Orally Twice a day for 90 [facility] isosorbide mononitrate 30 mg 24 hr tablet 12-05 00:00: 00 03-07 00:00 :00 No [id number] 30mg Take 1 tablet by mouth in the morning. [facility] SEDRICK CHEWABLE ASPIRIN ORAL 11-16 08:48: 33 Yes 81mg Take 81 mg by mouth. Indication s: takes 2 per day [facility] rosuvastati n 20 mg tablet 11-16 08:48: 33 Yes 20mg Take 1 tablet by mouth at bedtime. [facility] SEDRICK CHEWABLE ASPIRIN ORAL 10-13 10:26: 34 Yes 81mg Take 81 mg by mouth. Indication s: takes 2 per day [facility] rosuvastati n 20 mg tablet 24 10:26: 34 Yes 20mg Take 20 mg by mouth at bedtime. [facility] ibuprofen 800 mg tablet 10-10 00:00: 00 04-10 00:00 :00 No 800mg Take 1 tablet by mouth every 8 (eight) hours as needed. [facility] rosuvastati n 20 mg tablet 08-24 16:47: 42 Yes 20mg Take 20 mg by mouth at bedtime. [facility] metFORMIN (GLUCOPHAGE ) 500 mg tablet 0 08-24 15:27: 49 Yes 1000mg Take 1,000 mg by mouth 2 (two) times daily with meals. [facility] SEDRICK CHEWABLE ASPIRIN ORAL 08-24 15:27: 49 Yes 81mg Take 81 mg by mouth. Indication s: takes 2 per day [facility] Cholecalcif jose, Vitamin D3, 50 mcg (2,000 unit) capsule 08-24 15:27: 49 Yes 2000U Take 2,000 Units by mouth. [facility] isosorbide mononitrate 30 mg 24 hr tablet 08-24 00:00: 00 12-05 00:00 :00 No [id number] 30mg Take 1 tablet by mouth in the morning. [facility] cefTRIAXone (ROCEPHIN) 1,000 mg in NaCl 0.9% (NS) 50 mL MINI-BAG 08-20 03:45: 00 08-20 03:45 :00 No 1000mg 1,000 mg, Intravenou s, ONCE, 1 dose, On 08/19/22 at 2145, Administer over 30 Minutes, 50 mL
Reas on for Anti-Infec tive: Documented Infection< br>Documen olvin Infection Site: Urine
D uration of Therapy: Other (see Comments) [facility] cefdinir 300 mg capsule 08-19 00:00: 00 08-25 05:59 :00 No [id number] 300mg Take 1 capsule by mouth every 12 (twelve) hours for 5 days. [facility] metoprolol tartrate 50 mg tablet 08-14 00:00: 00 Yes 50mg Take 1 tablet by mouth in the morning and 1 tablet in the evening. Take with meals. [facility] metFORMIN (GLUCOPHAGE ) 500 mg tablet 2021-07 17:05: 04 Yes 1000mg Take 1,000 mg by mouth 2 (two) times daily with meals. [facility] SEDRICK CHEWABLE ASPIRIN ORAL 2021-07 17:05: 04 Yes 81mg Take 81 mg by mouth. Indication s: takes 2 per day [facility] rosuvastati n 20 mg tablet 2021-07 17:05: 04 Yes 20mg Take 20 mg by mouth at bedtime. [facility] Cholecalcif jose, Vitamin D3, 50 mcg (2,000 unit) capsule 2021-07 17:05: 04 Yes 2000U Take 2,000 Units by mouth. [facility] sulfur hexafluorid e microsphr (LUMASON) injection 5 mL 2021-07 16:15: 00 07-12 16:15 :00 No [id number] 5mL 5 mL, Intravenou s, ONCE, 1 dose, On Sun07/12/22 at 1015, Routine
defence force member other ranks approving Restricted medication : PARDEEP ACOSTA [facility] polyethylen e glycol 3350 powder 17 g 2021-07 15:00: 00 Yes 17g 17 g, Oral, DAILY, First dose on Sun07/12/22 at 0900, Until Discontinu ed, Routine [facility] lisinopriL (PRINIVIL,Z ESTRIL) tablet 5 mg 2021-07 15:00: 00 Yes 5mg 5 mg, Oral, DAILY, First dose on Sun07/12/22 at 0900, Until Discontinu ed, Routine [facility] isosorbide mononitrate (IMDUR) 24 hr tablet 60 mg 2021-07 15:00: 00 Yes 60mg 60 mg, Oral, DAILY, First dose on Sun07/12/22 at 0900, Until Discontinu ed, Routine [facility] cholecalcif jose (vitamin D3) tablet 1,000 Units 2021-07 15:00: 00 Yes 1000U 1,000 Units, Oral, DAILY, First dose on Sun07/12/22 at 0900, Until Discontinu ed [facility] clopidogreL (PLAVIX) 75 mg tablet 75 mg 2021-07 15:00: 00 Yes 75mg 75 mg, Oral, DAILY, First dose on Sun07/12/22 at 0900, Until Discontinu ed, Routine, CV Recovery to Floor
F aculty member approving Restricted medication : NAGA LAKHANI [facility] aspirin chewable tablet 81 mg 2021-07 15:00: 00 Yes 81mg 81 mg, Oral, DAILY, First dose on Sun07/12/22 at 0900, Until Discontinu ed, Routine, CV Recovery to Floor [facility] rosuvastati n (CRESTOR) tablet 20 mg 2021-07 03:00: 00 Yes 20mg 20 mg, Oral, QHS, First dose on Sun07/11/22 at 2100, Until Discontinu ed, Routine [facility] heparin (porcine) injection 5,000 Units 2021-07 02:00: 00 Yes 5000U 5,000 Units, Subcutaneo us, Q12H, First dose on Sun07/11/22 at 2000, Until Discontinu ed, Routine [facility] metoprolol tartrate (LOPRESSOR) tablet 25 mg 2021-07 02:00: 00 Yes 25mg 25 mg, Oral, BID, First dose on Sun07/11/22 at 2000, Until Discontinu ed, Routine [facility] clopidogreL 75 mg tablet 2021-07 00:00: 00 12-12 00:00 :00 No [id number] 75mg Take 1 tablet by mouth in the morning. [facility] Sliding Scale Insulin - Lispro (HumaLOG) + Fsbg Testing 2021-07 23:00: 00 Yes Subcutaneo us, TID MEALS+HS, First dose on Sun07/11/22 at 1700, Until Discontinu ed, Routine [facility] [facility] acetaminoph en (TYLENOL) tablet 650 mg 2021-07 21:06: 19 Yes 650mg 650 mg, Oral, Q6HPRN, Starting on Sun07/11/22 at 1506, Until Discontinu ed, Routine, Pain (scale 1-3) [facility] iodixanol (VISIPAQUE 320-100 mL) injection 2021-07 16:36: 10 07-11 16:56 :02 No ONCE INTRA PROCEDURE, Starting on Sun07/11/22 at 1036, Until Sun07/11/22 at 1056, Routine, CV Intraproce dure [facility] adenosine 6 mg/1000 mL INTRACORONA RY injection for DIGITIZER 2021-07 16:19: 49 07-11 16:56 :02 No ONCE INTRA PROCEDURE, Starting on Sun07/11/22 at 1019, Until Sun07/11/22 at 1056, Routine, CV Intraproce dure [facility] nitroglycer in (TRIDIL) 2 mg in 10 mL D5W for Cardiac Cath 2021-07 15:17: 44 07-11 16:56 :02 No ONCE INTRA PROCEDURE, Starting on Sun07/11/22 at 0917, Until Sun07/11/22 at 1056, Routine, CV Intraproce dure [facility] heparin 1,000 unit/mL injection 2021-07 15:17: 31 07-11 16:56 :02 No ONCE INTRA PROCEDURE, Starting on Sun07/11/22 at 0917, Until Sun07/11/22 at 1056, Routine, CV Intraproce dure [facility] lidocaine 1% (PF) (XYLOCAINE) injection 2021-07 15:11: 54 07-11 16:56 :02 No ONCE INTRA PROCEDURE, Starting on Sun07/11/22 at 0911, Until Sun07/11/22 at 1056, Routine, CV Intraproce dure [facility] ezetimibe-s imvastatin 10-20 10-20 mg tablet 2021-07 15:09: 09 07-11 00:00 :00 No 1{tbl} Take 1 Tab by mouth at bedtime. [facility] ferrous sulfate 325 mg (65 mg iron) EC tablet 2021-07 15:09: 09 07-11 00:00 :00 No 1 tablet [facility] clopidogreL (PLAVIX) 300 mg tablet 600 mg 2021-07 15:00: 00 07-11 15:00 :00 No 600mg 600 mg, Oral, ONCE, 1 dose, On Sun07/11/22 at 0900, Routine [facility] midazolam (VERSED) injection 2021-07 14:58: 51 07-11 16:56 :02 No ONCE INTRA PROCEDURE, Starting on Sun07/11/22 at 0858, Until Sun07/11/22 at 1056, Routine, CV Intraproce dure [facility] FENTanyl PF (SUBLIMAZE (PF)) injection 2021-07 14:58: 44 07-11 16:56 :02 No ONCE INTRA PROCEDURE, Starting on Sun07/11/22 at 0858, Until Sun07/11/22 at 1056, Routine, CV Intraproce dure [facility] isosorbide mononitrate 60 mg 24 hr tablet 2021-07 00:00: 00 08-24 00:00 :00 No [id number] 60mg Take 1 tablet by mouth in the morning. [facility] iopamidol (ISOVUE 370-500 mL) injection 04-18 14:16: 56 04-18 14:23 :24 No ONCE INTRA PROCEDURE, Starting on Sun04/18/22 at 0916, Until Sun04/18/22 at 0923, Routine, CV Intraproce dure [facility] hydralAZINE (APRESOLINE ) injection 04-18 13:43: 08 04-18 14:23 :24 No ONCE INTRA PROCEDURE, Starting on Sun04/18/22 at 0843, Until Sun04/18/22 at 0923, STAT, CV Intraproce dure [facility] lidocaine 1% (PF) (XYLOCAINE) injection 04-18 12:59: 54 04-18 14:23 :24 No ONCE INTRA PROCEDURE, Starting on Sun04/18/22 at 0759, Until Sun04/18/22 at 0923, Routine, CV Intraproce dure [facility] midazolam (VERSED) injection 04-18 12:50: 51 04-18 14:23 :24 No ONCE INTRA PROCEDURE, Starting on Sun04/18/22 at 0750, Until Sun04/18/22 at 0923, Routine, CV Intraproce dure [facility] FENTanyl PF (SUBLIMAZE (PF)) injection 04-18 12:50: 38 04-18 14:23 :24 No ONCE INTRA PROCEDURE, Starting on Sun04/18/22 at 0750, Until Sun04/18/22 at 0923, Routine, CV Intraproce dure [facility] ezetimibe-s imvastatin 10-20 10-20 mg tablet 04-18 12:18: 45 Yes 1{tbl} Take 1 Tab by mouth at bedtime. [facility] metFORMIN (GLUCOPHAGE ) 500 mg tablet 04-18 12:18: 45 Yes 1000mg Take 1,000 mg by mouth 2 (two) times daily with meals. [facility] SEDRICK CHEWABLE ASPIRIN ORAL 04-18 12:18: 45 Yes 81mg Take 81 mg by mouth. Indication s: takes 2 per day [facility] rosuvastati n 20 mg tablet 04-18 12:18: 45 Yes 20mg Take 20 mg by mouth at bedtime. [facility] Cholecalcif jose, Vitamin D3, 50 mcg (2,000 unit) capsule 04-18 12:18: 45 Yes 2000U Take 2,000 Units by mouth. [facility] ferrous sulfate 325 mg (65 mg iron) EC tablet 04-18 12:18: 45 Yes 1 tablet [facility] isosorbide mononitrate 60 mg 24 hr tablet 04-18 00:00: 00 06-26 00:00 :00 No [id number] 30mg Take 0.5 tablets by mouth in the morning. [facility] ezetimibe-s imvastatin 10-20 10-20 mg tablet 03-28 11:22: 09 Yes 1{tbl} Take 1 Tab by mouth at bedtime. [facility] ferrous sulfate 325 mg (65 mg iron) EC tablet 03-28 11:22: 09 Yes 1 tablet [facility] metFORMIN (GLUCOPHAGE ) 500 mg tablet 03-23 13:05: 40 Yes 1000mg Take 2 tablets by mouth in the morning and 2 tablets in the evening. Take with meals. [facility] SEDRICK CHEWABLE ASPIRIN ORAL 03-23 13:05: 40 Yes 81mg Take 81 mg by mouth. Indication s: takes 2 per day [facility] rosuvastati n 20 mg tablet 03-23 13:05: 40 Yes 20mg Take 1 tablet by mouth at bedtime. [facility] Cholecalcif jose, Vitamin D3, 50 mcg (2,000 unit) capsule 03-23 13:05: 40 Yes 2000U Take 1 capsule by mouth. [facility] amoxicillin 500 mg capsule 02-25 00:00: 00 07-11 00:00 :00 No TAKE ONE CAPSULE BY MOUTH EVERY 8 HOURS FOR 10 DAYS [facility] meclizine 25 mg tablet 02-25 00:00: 00 07-11 00:00 :00 No TAKE 1 TABLET BY MOUTH EVERY 8 HOURS NEEDED [facility] lisinopriL 10 mg tablet 6-07 00:00: 00 03-07 00:00 :00 No [id number] 5mg Take 0.5 tablets by mouth in the morning. [facility] FARXIGA 10 mg tablet - 00:00: 00 07-11 00:00 :00 No [id number] 10mg Take 10 mg by mouth daily. [facility] metoprolol tartrate 25 mg tablet 2016-07-18 00:00: 00 08-24 00:00 :00 No 25mg Take 1 tablet by mouth 2 (two) times daily. [facility] metFORMIN HCl 1000 MG metFORMIN HCl 1000 MG No 1{table t_with_ meals} BID metFORMIN HCl 1000 MG Lisinopril 10 MG Lisinopril 10 MG No 1{table t} QD Lisinopril 10 MG Aspir-81 81 MG Aspir-81 81 MG No 1{table t} QD Aspir-81 81 MG Metoprolol Tartrate 50 MG Metoprolol Tartrate 50 MG No 1{table t_with_ food} BID Metoprolol Tartrate 50 MG Crestor 20 MG Crestor 20 MG No 1{table t_at_be dtime} QD Crestor 20 MG Clopidogrel Bisulfate 75 MG Clopidogrel Bisulfate 75 MG No 1{table t} QD Clopidogre l Bisulfate 75 MG Isosorbide Mononitrate ER 120 MG Isosorbide Mononitrate ER 120 MG No 1{table t_in_th e_morni ng} QD Isosorbide Mononitrat e ER 120 MG amLODIPine Besylate 10 MG amLODIPine Besylate 10 MG No 1{table t} QD amLODIPine Besylate 10 MG Vitamin D3 25 MCG (1000 UT) Vitamin D3 25 MCG (1000 UT) No 1{table t} QD Vitamin D3 25 MCG (1000 UT) Immunizations Ordered Immunization Name Filled Immunization Name Date Status Comments Source Influenza, High-Dose, Trivalent, PF (FLUZONE) 2023-05-03 00:00:00 Completed [facility] Influenza Virus Vaccine,quad Im,preserve Free 65+ 2021-07-04 00:00:00 Completed [facility] Influenza Virus Vaccine,quad Im,preserve Free 65+ 2021-07-04 00:00:00 Completed [facility] Influenza Virus Vaccine,quad Im,preserve Free 65+ 2021-07-04 00:00:00 Completed [facility] Influenza Virus Vaccine,quad Im,preserve Free 65+ 2021-07-04 00:00:00 Completed [facility] Influenza Virus Vaccine,quad Im,preserve Free 65+ 2021-07-04 00:00:00 Completed [facility] Influenza Virus Vaccine,quad Im,preserve Free 65+ 2021-07-04 00:00:00 Completed [facility] Influenza Virus Vaccine,quad Im,preserve Free 65+ 2021-07-04 00:00:00 Completed [facility] Influenza Virus Vaccine,quad Im,preserve Free 65+ 2021-07-04 00:00:00 Completed [facility] Influenza Virus Vaccine,quad Im,preserve Free 65+ 2021-07-04 00:00:00 Completed [facility] Influenza Virus Vaccine,quad Im,preserve Free 65+ 2021-07-04 00:00:00 Completed [facility] Influenza Virus Vaccine,quad Im,preserve Free 65+ 2021-07-04 00:00:00 Completed [facility] Influenza Virus Vaccine,quad Im,preserve Free 652021-07-04 00:00:00 Completed [facility] Influenza Virus Vaccine,quad Im,preserve Free 65+ 2021-07-04 00:00:00 Completed [facility] Influenza Virus Vaccine,quad Im,preserve Free 65+ 2021-07-04 00:00:00 Completed [facility] Influenza Virus Vaccine,quad Im,preserve Free 652021-07-04 00:00:00 Completed [facility] Influenza Virus Vaccine,quad Im,preserve Free 65+ 2021-07-04 00:00:00 Completed [facility] Influenza Virus Vaccine,quad Im,preserve Free 652021-07-04 00:00:00 Completed [facility] Influenza Virus Vaccine,quad Im,preserve Free 652021-07-04 00:00:00 Completed [facility] Influenza Virus Vaccine,quad Im,preserve Free 652021-07-04 00:00:00 Completed [facility] Influenza Virus Vaccine,quad Im,preserve Free 652021-07-04 00:00:00 Completed [facility] Influenza Virus Vaccine,quad Im,preserve Free 652021-07-04 00:00:00 Completed [facility] Influenza Virus Vaccine,quad Im,preserve Free 652021-07-04 00:00:00 Completed [facility] Influenza Virus Vaccine,quad Im,preserve Free 652021-07-04 00:00:00 Completed [facility] Influenza Virus Vaccine,quad Im,preserve Free 652021-07-04 00:00:00 Completed [facility] Influenza Virus Vaccine,quad Im,preserve Free 652021-07-04 00:00:00 Completed [facility] Influenza Virus Vaccine,quad Im,preserve Free 652021-07-04 00:00:00 Completed [facility] Influenza Virus Vaccine,quad Im,preserve Free 652021-07-04 00:00:00 Completed [facility] Influenza Virus Vaccine,quad Im,preserve Free 652021-07-04 00:00:00 Completed [facility] Influenza Virus Vaccine,quad Im,preserve Free 652021-07-04 00:00:00 Completed [facility] Influenza Virus Vaccine,quad Im,preserve Free 65+ 2021-07-04 00:00:00 Completed [facility] Influenza Virus Vaccine,quad Im,preserve Free 65+ 2021-07-04 00:00:00 Completed [facility] Influenza Virus Vaccine,quad Im,preserve Free 65+ 2021-07-04 00:00:00 Completed [facility] Influenza Virus Vaccine,quad Im,preserve Free 65+ 2021-07-04 00:00:00 Completed [facility] Influenza Virus Vaccine,quad Im,preserve Free 65+ 2021-07-04 00:00:00 Completed [facility] Influenza Virus Vaccine,quad Im,preserve Free 65+ 2021-07-04 00:00:00 Completed [facility] Influenza Virus Vaccine,quad Im,preserve Free 65+ 2021-07-04 00:00:00 Completed [facility] Influenza Virus Vaccine,quad Im,preserve Free 65+ 2021-07-04 00:00:00 Completed [facility] Influenza Virus Vaccine,quad Im,preserve Free 65+ 2021-07-04 00:00:00 Completed [facility] Influenza Virus Vaccine,quad Im,preserve Free 65+ 2021-07-04 00:00:00 Completed [facility] Influenza Virus Vaccine,quad Im,preserve Free 65+ (FLUAD) 2021-07-04 00:00:00 Completed [facility] Influenza Virus Vaccine,quad Im,preserve Free 65+ (FLUAD) 2021-07-04 00:00:00 Completed [facility] Influenza Virus Vaccine,quad Im,preserve Free 65+ (FLUAD) 2021-07-04 00:00:00 Completed [facility] Influenza Virus Vaccine,quad Im,preserve Free 65+ (FLUAD) 2021-07-04 00:00:00 Completed [facility] Influenza Virus Vaccine,quad Im,preserve Free 65+ (FLUAD) 2021-07-04 00:00:00 Completed [facility] Influenza Virus Vaccine,quad Im,preserve Free 65+ (FLUAD) 2021-07-04 00:00:00 Completed [facility] SARS-COV-2 COVID-19 PFIZER VACCINE 2020-12-13 00:00:00 Completed [facility] SARS-COV-2 COVID-19 PFIZER VACCINE 2020-12-13 00:00:00 Completed [facility] SARS-COV-2 COVID-19 PFIZER VACCINE 2020-12-13 00:00:00 Completed [facility] SARS-COV-2 COVID-19 PFIZER VACCINE 2020-12-13 00:00:00 Completed [facility] SARS-COV-2 COVID-19 PFIZER VACCINE 2020-12-13 00:00:00 Completed [facility] SARS-COV-2 COVID-19 PFIZER VACCINE 2020-12-13 00:00:00 Completed [facility] SARS-COV-2 COVID-19 PFIZER VACCINE 2020-12-13 00:00:00 Completed [facility] SARS-COV-2 COVID-19 PFIZER VACCINE 2020-12-13 00:00:00 Completed [facility] SARS-COV-2 COVID-19 PFIZER VACCINE 2020-12-13 00:00:00 Completed [facility] SARS-COV-2 COVID-19 PFIZER VACCINE 2020-12-13 00:00:00 Completed [facility] SARS-COV-2 COVID-19 PFIZER VACCINE 2020-12-13 00:00:00 Completed [facility] SARS-COV-2 COVID-19 PFIZER VACCINE 2020-12-13 00:00:00 Completed [facility] SARS-COV-2 COVID-19 PFIZER VACCINE 2020-12-13 00:00:00 Completed [facility] SARS-COV-2 COVID-19 PFIZER VACCINE 2020-12-13 00:00:00 Completed [facility] SARS-COV-2 COVID-19 PFIZER VACCINE 2020-12-13 00:00:00 Completed [facility] SARS-COV-2 COVID-19 PFIZER VACCINE 2020-12-13 00:00:00 Completed [facility] SARS-COV-2 COVID-19 PFIZER VACCINE 2020-12-13 00:00:00 Completed [facility] SARS-COV-2 COVID-19 PFIZER VACCINE 2020-12-13 00:00:00 Completed [facility] SARS-COV-2 COVID-19 PFIZER VACCINE 2020-12-13 00:00:00 Completed [facility] SARS-COV-2 COVID-19 PFIZER VACCINE 2020-12-13 00:00:00 Completed [facility] SARS-COV-2 COVID-19 PFIZER VACCINE 2020-12-13 00:00:00 Completed [facility] SARS-COV-2 COVID-19 PFIZER VACCINE 2020-12-13 00:00:00 Completed [facility] SARS-COV-2 COVID-19 PFIZER VACCINE 2020-12-13 00:00:00 Completed [facility] SARS-COV-2 COVID-19 PFIZER VACCINE 2020-12-13 00:00:00 Completed [facility] SARS-COV-2 COVID-19 PFIZER VACCINE 2020-12-13 00:00:00 Completed [facility] SARS-COV-2 COVID-19 PFIZER VACCINE 2020-12-13 00:00:00 Completed [facility] SARS-COV-2 COVID-19 PFIZER VACCINE 2020-12-13 00:00:00 Completed [facility] SARS-COV-2 COVID-19 PFIZER VACCINE 2020-12-13 00:00:00 Completed [facility] SARS-COV-2 COVID-19 PFIZER VACCINE 2020-12-13 00:00:00 Completed [facility] SARS-COV-2 COVID-19 PFIZER VACCINE 2020-12-13 00:00:00 Completed [facility] SARS-COV-2 COVID-19 PFIZER VACCINE 2020-12-13 00:00:00 Completed [facility] SARS-COV-2 COVID-19 PFIZER VACCINE 2020-12-13 00:00:00 Completed [facility] SARS-COV-2 COVID-19 PFIZER VACCINE 2020-12-13 00:00:00 Completed [facility] SARS-COV-2 COVID-19 PFIZER VACCINE 2020-12-13 00:00:00 Completed [facility] SARS-COV-2 COVID-19 PFIZER VACCINE 2020-12-13 00:00:00 Completed [facility] SARS-COV-2 COVID-19 PFIZER VACCINE 2020-12-13 00:00:00 Completed [facility] SARS-COV-2 COVID-19 PFIZER VACCINE 2020-12-13 00:00:00 Completed [facility] SARS-COV-2 COVID-19 PFIZER VACCINE 2020-12-13 00:00:00 Completed [facility] SARS-COV-2 COVID-19 PFIZER VACCINE 2020-12-13 00:00:00 Completed [facility] SARS-COV-2 COVID-19 PFIZER VACCINE 2020-12-13 00:00:00 Completed [facility] SARS-COV-2 COVID-19 PFIZER VACCINE 2020-12-13 00:00:00 Completed [facility] SARS-COV-2 COVID-19 PFIZER VACCINE 2020-12-13 00:00:00 Completed [facility] SARS-COV-2 COVID-19 PFIZER VACCINE 2020-12-13 00:00:00 Completed [facility] SARS-COV-2 COVID-19 PFIZER VACCINE 2020-12-13 00:00:00 Completed [facility] SARS-COV-2 COVID-19 PFIZER VACCINE 2020-12-13 00:00:00 Completed [facility] SARS-COV-2 COVID-19 PFIZER VACCINE 2020-11-20 00:00:00 Completed [facility] SARS-COV-2 COVID-19 PFIZER VACCINE 2020-11-20 00:00:00 Completed [facility] SARS-COV-2 COVID-19 PFIZER VACCINE 2020-11-20 00:00:00 Completed [facility] SARS-COV-2 COVID-19 PFIZER VACCINE 2020-11-20 00:00:00 Completed [facility] SARS-COV-2 COVID-19 PFIZER VACCINE 2020-11-20 00:00:00 Completed [facility] SARS-COV-2 COVID-19 PFIZER VACCINE 2020-11-20 00:00:00 Completed [facility] SARS-COV-2 COVID-19 PFIZER VACCINE 2020-11-20 00:00:00 Completed [facility] SARS-COV-2 COVID-19 PFIZER VACCINE 2020-11-20 00:00:00 Completed [facility] SARS-COV-2 COVID-19 PFIZER VACCINE 2020-11-20 00:00:00 Completed [facility] SARS-COV-2 COVID-19 PFIZER VACCINE 2020-11-20 00:00:00 Completed [facility] SARS-COV-2 COVID-19 PFIZER VACCINE 2020-11-20 00:00:00 Completed [facility] SARS-COV-2 COVID-19 PFIZER VACCINE 2020-11-20 00:00:00 Completed [facility] SARS-COV-2 COVID-19 PFIZER VACCINE 2020-11-20 00:00:00 Completed [facility] SARS-COV-2 COVID-19 PFIZER VACCINE 2020-11-20 00:00:00 Completed [facility] SARS-COV-2 COVID-19 PFIZER VACCINE 2020-11-20 00:00:00 Completed [facility] SARS-COV-2 COVID-19 PFIZER VACCINE 2020-11-20 00:00:00 Completed [facility] SARS-COV-2 COVID-19 PFIZER VACCINE 2020-11-20 00:00:00 Completed [facility] SARS-COV-2 COVID-19 PFIZER VACCINE 2020-11-20 00:00:00 Completed [facility] SARS-COV-2 COVID-19 PFIZER VACCINE 2020-11-20 00:00:00 Completed [facility] SARS-COV-2 COVID-19 PFIZER VACCINE 2020-11-20 00:00:00 Completed [facility] SARS-COV-2 COVID-19 PFIZER VACCINE 2020-11-20 00:00:00 Completed [facility] SARS-COV-2 COVID-19 PFIZER VACCINE 2020-11-20 00:00:00 Completed [facility] SARS-COV-2 COVID-19 PFIZER VACCINE 2020-11-20 00:00:00 Completed [facility] SARS-COV-2 COVID-19 PFIZER VACCINE 2020-11-20 00:00:00 Completed [facility] SARS-COV-2 COVID-19 PFIZER VACCINE 2020-11-20 00:00:00 Completed [facility] SARS-COV-2 COVID-19 PFIZER VACCINE 2020-11-20 00:00:00 Completed [facility] SARS-COV-2 COVID-19 PFIZER VACCINE 2020-11-20 00:00:00 Completed [facility] SARS-COV-2 COVID-19 PFIZER VACCINE 2020-11-20 00:00:00 Completed [facility] SARS-COV-2 COVID-19 PFIZER VACCINE 2020-11-20 00:00:00 Completed [facility] SARS-COV-2 COVID-19 PFIZER VACCINE 2020-11-20 00:00:00 Completed [facility] SARS-COV-2 COVID-19 PFIZER VACCINE 2020-11-20 00:00:00 Completed [facility] SARS-COV-2 COVID-19 PFIZER VACCINE 2020-11-20 00:00:00 Completed [facility] SARS-COV-2 COVID-19 PFIZER VACCINE 2020-11-20 00:00:00 Completed [facility] SARS-COV-2 COVID-19 PFIZER VACCINE 2020-11-20 00:00:00 Completed [facility] SARS-COV-2 COVID-19 PFIZER VACCINE 2020-11-20 00:00:00 Completed [facility] SARS-COV-2 COVID-19 PFIZER VACCINE 2020-11-20 00:00:00 Completed [facility] SARS-COV-2 COVID-19 PFIZER VACCINE 2020-11-20 00:00:00 Completed [facility] SARS-COV-2 COVID-19 PFIZER VACCINE 2020-11-20 00:00:00 Completed [facility] SARS-COV-2 COVID-19 PFIZER VACCINE 2020-11-20 00:00:00 Completed [facility] SARS-COV-2 COVID-19 PFIZER VACCINE 2020-11-20 00:00:00 Completed [facility] SARS-COV-2 COVID-19 PFIZER VACCINE 2020-11-20 00:00:00 Completed [facility] SARS-COV-2 COVID-19 PFIZER VACCINE 2020-11-20 00:00:00 Completed [facility] SARS-COV-2 COVID-19 PFIZER VACCINE 2020-11-20 00:00:00 Completed [facility] SARS-COV-2 COVID-19 PFIZER VACCINE 2020-11-20 00:00:00 Completed [facility] SARS-COV-2 COVID-19 PFIZER VACCINE 2020-11-20 00:00:00 Completed [facility] FluAD FluAD 2018-05-08 10:08:00 Completed [facility] FluAD FluAD 2018-05-08 10:08:00 Completed [facility] FluAD FluAD 2018-05-08 10:08:00 Completed [facility] FluAD FluAD 2018-05-08 10:08:00 Completed [facility] FluAD FluAD 2018-05-08 10:08:00 Completed [facility] FluAD FluAD 2018-05-08 10:08:00 Completed [facility] FluAD FluAD 2018-05-08 10:08:00 Completed [facility] FluAD FluAD 2018-05-08 00:00:00 Completed [facility] SARS-COV-2 COVID-19 PFIZER VACCINE Unknown Completed [facility] Influenza Virus Vaccine,quad Im,preserve Free 65+ (FLUAD) Unknown Completed [facility] SARS-COV-2 COVID-19 PFIZER VACCINE Unknown Completed [facility] Influenza Virus Vaccine,quad Im,preserve Free 65+ (FLUAD) Unknown Completed [facility] SARS-COV-2 COVID-19 PFIZER VACCINE Unknown Completed [facility] Influenza Virus Vaccine,quad Im,preserve Free 65+ (FLUAD) Unknown Completed [facility] SARS-COV-2 COVID-19 PFIZER VACCINE Unknown Completed [facility] Influenza Virus Vaccine,quad Im,preserve Free 65+ (FLUAD) Unknown Completed [facility] SARS-COV-2 COVID-19 PFIZER VACCINE Unknown Completed [facility] Influenza Virus Vaccine,quad Im,preserve Free 65+ (FLUAD) Unknown Completed [facility] SARS-COV-2 COVID-19 PFIZER VACCINE Unknown Completed [facility] Influenza Virus Vaccine,quad Im,preserve Free 65+ (FLUAD) Unknown Completed [facility] SARS-COV-2 COVID-19 PFIZER VACCINE Unknown Completed [facility] Influenza Virus Vaccine,quad Im,preserve Free 65+ (FLUAD) Unknown Completed [facility] SARS-COV-2 COVID-19 PFIZER VACCINE Unknown Completed [facility] Influenza Virus Vaccine,quad Im,preserve Free 65+ (FLUAD) Unknown Completed [facility] SARS-COV-2 COVID-19 PFIZER VACCINE Unknown Completed [facility] Influenza Virus Vaccine,quad Im,preserve Free 65+ (FLUAD) Unknown Completed [facility] SARS-COV-2 COVID-19 PFIZER VACCINE Unknown Completed [facility] Influenza Virus Vaccine,quad Im,preserve Free 65+ (FLUAD) Unknown Completed [facility] Influenza High Dose Unknown Completed [facility] SARS-COV-2 COVID-19 PFIZER VACCINE Unknown Completed [facility] Influenza Virus Vaccine,quad Im,preserve Free 65+ (FLUAD) Unknown Completed [facility] Influenza High Dose Unknown Completed [facility] SARS-COV-2 COVID-19 PFIZER VACCINE Unknown Completed [facility] Influenza Virus Vaccine,quad Im,preserve Free 65+ (FLUAD) Unknown Completed [facility] SARS-COV-2 COVID-19 PFIZER VACCINE Unknown Completed [facility] Influenza Virus Vaccine,quad Im,preserve Free 65+ (FLUAD) Unknown Completed [facility] Influenza High Dose Unknown Completed [facility] SARS-COV-2 COVID-19 PFIZER VACCINE Unknown Completed [facility] Influenza Virus Vaccine,quad Im,preserve Free 65+ (FLUAD) Unknown Completed [facility] Influenza High Dose Unknown Completed [facility] SARS-COV-2 COVID-19 PFIZER VACCINE Unknown Completed [facility] Influenza Virus Vaccine,quad Im,preserve Free 65+ (FLUAD) Unknown Completed [facility] Influenza High Dose Unknown Completed [facility] SARS-COV-2 COVID-19 PFIZER VACCINE Unknown Completed [facility] Influenza Virus Vaccine,quad Im,preserve Free 65+ (FLUAD) Unknown Completed [facility] Influenza High Dose Unknown Completed [facility] SARS-COV-2 COVID-19 PFIZER VACCINE Unknown Completed [facility] Influenza Virus Vaccine,quad Im,preserve Free 65+ (FLUAD) Unknown Completed [facility] Influenza High Dose Unknown Completed [facility] SARS-COV-2 COVID-19 PFIZER VACCINE Unknown Completed [facility] Influenza Virus Vaccine,quad Im,preserve Free 65+ (FLUAD) Unknown Completed [facility] Influenza High Dose Unknown Completed [facility] SARS-COV-2 COVID-19 PFIZER VACCINE Unknown Completed [facility] Influenza Virus Vaccine,quad Im,preserve Free 65+ (FLUAD) Unknown Completed [facility] Influenza High Dose Unknown Completed [facility] SARS-COV-2 COVID-19 PFIZER VACCINE Unknown Completed [facility] Influenza Virus Vaccine,quad Im,preserve Free 65+ (FLUAD) Unknown Completed [facility] Influenza High Dose Unknown Completed [facility] Influenza Virus Vaccine,quad Im,preserve Free 65+ (FLUAD) Unknown Completed [facility] Influenza High Dose Unknown Completed [facility] SARS-COV-2 COVID-19 PFIZER VACCINE Unknown Completed [facility] Influenza Virus Vaccine,quad Im,preserve Free 65+ (FLUAD) Unknown Completed [facility] Influenza High Dose Unknown Completed [facility] SARS-COV-2 COVID-19 PFIZER VACCINE Unknown Completed [facility] SARS-COV-2 COVID-19 PFIZER VACCINE Unknown Completed [facility] Influenza Virus Vaccine,quad Im,preserve Free 65+ (FLUAD) Unknown Completed [facility] Influenza High Dose Unknown Completed [facility] SARS-COV-2 COVID-19 PFIZER VACCINE Unknown Completed [facility] Influenza Virus Vaccine,quad Im,preserve Free 65+ (FLUAD) Unknown Completed [facility] Influenza High Dose Unknown Completed [facility] SARS-COV-2 COVID-19 PFIZER VACCINE Unknown Completed [facility] Influenza Virus Vaccine,quad Im,preserve Free 65+ (FLUAD) Unknown Completed [facility] Influenza High Dose Unknown Completed [facility] Influenza Virus Vaccine,quad Im,preserve Free 65+ (FLUAD) Unknown Completed [facility] Influenza High Dose Unknown Completed [facility] SARS-COV-2 COVID-19 PFIZER VACCINE Unknown Completed [facility] SARS-COV-2 COVID-19 PFIZER VACCINE Unknown Completed [facility] Influenza Virus Vaccine,quad Im,preserve Free 65+ (FLUAD) Unknown Completed [facility] Influenza High Dose Unknown Completed [facility] SARS-COV-2 COVID-19 PFIZER VACCINE Unknown Completed [facility] Influenza Virus Vaccine,quad Im,preserve Free 65+ (FLUAD) Unknown Completed [facility] Influenza High Dose Unknown Completed [facility] Influenza Virus Vaccine,quad Im,preserve Free 65+ (FLUAD) Unknown Completed [facility] Influenza High Dose Unknown Completed [facility] SARS-COV-2 COVID-19 PFIZER VACCINE Unknown Completed [facility] SARS-COV-2 COVID-19 PFIZER VACCINE Unknown Completed [facility] Influenza Virus Vaccine,quad Im,preserve Free 65+ (FLUAD) Unknown Completed [facility] Influenza High Dose Unknown Completed [facility] SARS-COV-2 COVID-19 PFIZER VACCINE Unknown Completed [facility] Influenza Virus Vaccine,quad Im,preserve Free 65+ (FLUAD) Unknown Completed [facility] Influenza High Dose Unknown Completed [facility] SARS-COV-2 COVID-19 PFIZER VACCINE Unknown Completed [facility] Influenza Virus Vaccine,quad Im,preserve Free 65+ (FLUAD) Unknown Completed [facility] Influenza High Dose Unknown Completed [facility] SARS-COV-2 COVID-19 PFIZER VACCINE Unknown Completed [facility] Influenza Virus Vaccine,quad Im,preserve Free 65+ (FLUAD) Unknown Completed [facility] Influenza High Dose Unknown Completed [facility] SARS-COV-2 COVID-19 PFIZER VACCINE Unknown Completed [facility] Influenza Virus Vaccine,quad Im,preserve Free 65+ (FLUAD) Unknown Completed [facility] Influenza High Dose Unknown Completed [facility] Influenza Virus Vaccine,quad Im,preserve Free 65+ (FLUAD) Unknown Completed [facility] Influenza High Dose Unknown Completed [facility] SARS-COV-2 COVID-19 PFIZER VACCINE Unknown Completed [facility] SARS-COV-2 COVID-19 PFIZER VACCINE Unknown Completed [facility] Influenza Virus Vaccine,quad Im,preserve Free 65+ (FLUAD) Unknown Completed [facility] Influenza High Dose Unknown Completed [facility] Influenza Virus Vaccine,quad Im,preserve Free 65+ (FLUAD) Unknown Completed [facility] Influenza High Dose Unknown Completed [facility] SARS-COV-2 COVID-19 PFIZER VACCINE Unknown Completed [facility] Influenza Virus Vaccine,quad Im,preserve Free 65+ (FLUAD) Unknown Completed [facility] Influenza High Dose Unknown Completed [facility] SARS-COV-2 COVID-19 PFIZER VACCINE Unknown Completed [facility] Influenza Virus Vaccine,quad Im,preserve Free 65+ (FLUAD) Unknown Completed [facility] Influenza High Dose Unknown Completed [facility] SARS-COV-2 COVID-19 PFIZER VACCINE Unknown Completed [facility] Influenza Virus Vaccine,quad Im,preserve Free 65+ (FLUAD) Unknown Completed [facility] Influenza High Dose Unknown Completed [facility] SARS-COV-2 COVID-19 PFIZER VACCINE Unknown Completed [facility] Influenza Virus Vaccine,quad Im,preserve Free 65+ (FLUAD) Unknown Completed [facility] Influenza High Dose Unknown Completed [facility] SARS-COV-2 COVID-19 PFIZER VACCINE Unknown Completed [facility] Influenza Virus Vaccine,quad Im,preserve Free 65+ (FLUAD) Unknown Completed [facility] Influenza High Dose Unknown Completed [facility] SARS-COV-2 COVID-19 PFIZER VACCINE Unknown Completed [facility] SARS-COV-2 COVID-19 PFIZER VACCINE Unknown Completed [facility] Influenza Virus Vaccine,quad Im,preserve Free 65+ (FLUAD) Unknown Completed [facility] Influenza High Dose Unknown Completed [facility] SARS-COV-2 COVID-19 PFIZER VACCINE Unknown Completed [facility] Influenza Virus Vaccine,quad Im,preserve Free 65+ (FLUAD) Unknown Completed [facility] Influenza High Dose Unknown Completed [facility] Influenza Virus Vaccine,quad Im,preserve Free 65+ (FLUAD) Unknown Completed [facility] Influenza High Dose Unknown Completed [facility] SARS-COV-2 COVID-19 PFIZER VACCINE Unknown Completed [facility] SARS-COV-2 COVID-19 PFIZER VACCINE Unknown Completed [facility] Influenza Virus Vaccine,quad Im,preserve Free 65+ (FLUAD) Unknown Completed [facility] Influenza High Dose Unknown Completed [facility] SARS-COV-2 COVID-19 PFIZER VACCINE Unknown Completed [facility] Influenza Virus Vaccine,quad Im,preserve Free 65+ (FLUAD) Unknown Completed [facility] Influenza High Dose Unknown Completed [facility] SARS-COV-2 COVID-19 PFIZER VACCINE Unknown Completed [facility] Influenza Virus Vaccine,quad Im,preserve Free 65+ (FLUAD) Unknown Completed [facility] Influenza High Dose Unknown Completed [facility] Influenza Virus Vaccine,quad Im,preserve Free 65+ (FLUAD) Unknown Completed [facility] Influenza High Dose Unknown Completed [facility] SARS-COV-2 COVID-19 PFIZER VACCINE Unknown Completed [facility] SARS-COV-2 COVID-19 PFIZER VACCINE Unknown Completed [facility] Influenza Virus Vaccine,quad Im,preserve Free 65+ (FLUAD) Unknown Completed [facility] Influenza High Dose Unknown Completed [facility] SARS-COV-2 COVID-19 PFIZER VACCINE Unknown Completed [facility] Influenza Virus Vaccine,quad Im,preserve Free 65+ (FLUAD) Unknown Completed [facility] Influenza High Dose Unknown Completed [facility] SARS-COV-2 COVID-19 PFIZER VACCINE Unknown Completed [facility] Influenza Virus Vaccine,quad Im,preserve Free 65+ (FLUAD) Unknown Completed [facility] Influenza High Dose Unknown Completed [facility] SARS-COV-2 COVID-19 PFIZER VACCINE Unknown Completed [facility] Influenza Virus Vaccine,quad Im,preserve Free 65+ (FLUAD) Unknown Completed [facility] Influenza High Dose Unknown Completed [facility] SARS-COV-2 COVID-19 PFIZER VACCINE Unknown Completed [facility] Influenza Virus Vaccine,quad Im,preserve Free 65+ (FLUAD) Unknown Completed [facility] Influenza High Dose Unknown Completed [facility] SARS-COV-2 COVID-19 PFIZER VACCINE Unknown Completed [facility] Influenza Virus Vaccine,quad Im,preserve Free 65+ (FLUAD) Unknown Completed [facility] Influenza High Dose Unknown Completed [facility] SARS-COV-2 COVID-19 PFIZER VACCINE Unknown Completed [facility] Influenza Virus Vaccine,quad Im,preserve Free 65+ (FLUAD) Unknown Completed [facility] Influenza High Dose Unknown Completed [facility] Prevnar 20 (PCV20) Prevnar 20 (PCV20) Unknown Completed [facility] FluAD Quad SD FluAD Quad SD Unknown Completed [facility] FluAD FluAD Unknown Completed [facility] Prevnar 20 (PCV20) Prevnar 20 (PCV20) Unknown Completed [facility] FluAD Quad SD FluAD Quad SD Unknown Completed [facility] FluAD FluAD Unknown Completed [facility] Prevnar 20 (PCV20) Prevnar 20 (PCV20) Unknown Completed [facility] FluAD Quad SD FluAD Quad SD Unknown Completed [facility] FluAD FluAD Unknown Completed [facility] Prevnar 20 (PCV20) Prevnar 20 (PCV20) Unknown Completed [facility] Fluad (aIIV4) - SDS - 0.5mL Fluad (aIIV4) - SDS - 0.5mL Unknown Completed [facility] FluAD FluAD Unknown Completed [facility] Prevnar 20 (PCV20) Prevnar 20 (PCV20) Unknown Completed [facility] Fluad (aIIV4) - SDS - 0.5mL Fluad (aIIV4) - SDS - 0.5mL Unknown Completed [facility] FluAD FluAD Unknown Completed [facility] Prevnar 20 (PCV20) Prevnar 20 (PCV20) Unknown Completed [facility] Fluad (aIIV4) - SDS - 0.5mL Fluad (aIIV4) - SDS - 0.5mL Unknown Completed [facility] FluAD FluAD Unknown Completed [facility] Prevnar 20 (PCV20) Prevnar 20 (PCV20) Unknown Completed [facility] Fluad (aIIV4) - SDS - 0.5mL Fluad (aIIV4) - SDS - 0.5mL Unknown Completed [facility] FluAD FluAD Unknown Completed [facility] Prevnar 20 (PCV20) Prevnar 20 (PCV20) Unknown Completed [facility] Fluad (aIIV4) - SDS - 0.5mL Fluad (aIIV4) - SDS - 0.5mL Unknown Completed [facility] FluAD FluAD Unknown Completed [facility] Prevnar 20 (PCV20) Prevnar 20 (PCV20) Unknown Completed [facility] Fluad (aIIV4) - SDS - 0.5mL Fluad (aIIV4) - SDS - 0.5mL Unknown Completed [facility] FluAD FluAD Unknown Completed [facility] Prevnar 20 (PCV20) Prevnar 20 (PCV20) Unknown Completed [facility] Fluad (aIIV4) - SDS - 0.5mL Fluad (aIIV4) - SDS - 0.5mL Unknown Completed [facility] FluAD FluAD Unknown Completed [facility] Prevnar 20 (PCV20) Prevnar 20 (PCV20) Unknown Completed [facility] Fluad (aIIV4) - SDS - 0.5mL Fluad (aIIV4) - SDS - 0.5mL Unknown Completed [facility] FluAD FluAD Unknown Completed [facility] Prevnar 20 (PCV20) Prevnar 20 (PCV20) Unknown Completed [facility] Fluad (aIIV4) - SDS - 0.5mL Fluad (aIIV4) - SDS - 0.5mL Unknown Completed [facility] FluAD FluAD Unknown Completed [facility] Prevnar 20 (PCV20) Prevnar 20 (PCV20) Unknown Completed [facility] Fluad (aIIV4) - SDS - 0.5mL Fluad (aIIV4) - SDS - 0.5mL Unknown Completed [facility] FluAD FluAD Unknown Completed [facility] Prevnar 20 (PCV20) Prevnar 20 (PCV20) Unknown Completed [facility] Fluad (aIIV4) - SDS - 0.5mL Fluad (aIIV4) - SDS - 0.5mL Unknown Completed [facility] FluAD FluAD Unknown Completed [facility] Prevnar 20 (PCV20) Prevnar 20 (PCV20) Unknown Completed [facility] Fluad (aIIV4) - SDS - 0.5mL Fluad (aIIV4) - SDS - 0.5mL Unknown Completed [facility] FluAD FluAD Unknown Completed [facility] Prevnar 20 (PCV20) Prevnar 20 (PCV20) Unknown Completed [facility] Fluad (aIIV4) - SDS - 0.5mL Fluad (aIIV4) - SDS - 0.5mL Unknown Completed [facility] FluAD FluAD Unknown Completed [facility] Vital Signs Vital Name Observation Time Observation Value Comments S ource Systolic blood pressure 2024-05-12 16:40:00 131 mm[Hg] [facility] Diastolic blood pressure 2024-05-12 16:40:00 58 mm[Hg] [facility] Heart rate 2024-05-12 16:40:00 60 /min [facility] Respiratory rate 2024-05-12 16:40:00 20 /min [facility] Body height 2024-05-12 16:40:00 142.2 cm [facility] Body weight 2024-05-12 16:40:00 47.628 kg [facility] BMI 2024-05-12 16:40:00 23.54 kg/m2 [facility] Oxygen saturation in Arterial blood by Pulse oximetry 2024-05-12 16:40:00 98 /min [facility] Systolic blood pressure 2024-05-10 18:22:00 116 mm[Hg] [facility] Diastolic blood pressure 2024-05-10 18:22:00 55 mm[Hg] [facility] Heart rate 2024-05-10 18:22:00 61 /min [facility] Body temperature 2024-05-10 18:22:00 37.11 Marie [facility] Respiratory rate 2024-05-10 18:22:00 12 /min [facility] Oxygen saturation in Arterial blood by Pulse oximetry 2024-05-10 18:22:00 99 /min [facility] Body height 2024-05-10 15:52:00 149.9 cm [facility] Body weight 2024-05-10 15:52:00 46.267 kg [facility] BMI 2024-05-10 15:52:00 20.60 kg/m2 [facility] height 2024-04-18 15:20:00 57 [in_i] [facility] weight 2024-04-18 15:20:00 105 [lb_av] [facility] temperature 2024-04-18 15:20:00 97.5 [degF] [facility] bmi 2024-04-18 15:20:00 22.72 kg/m2 [facility] oximetry 2024-04-18 15:20:00 97 % [facility] respiratory rate 2024-04-18 15:20:00 17 /min [facility] blood pressure systolic 2024-04-18 15:20:00 129 mm[Hg] [facility] blood pressure diastolic 2024-04-18 15:20:00 60 mm[Hg] [facility] Systolic blood pressure 2024-03-17 18:02:00 109 mm[Hg] [facility] Diastolic blood pressure 2024-03-17 18:02:00 42 mm[Hg] [facility] Heart rate 2024-03-17 18:02:00 60 /min [facility] Body temperature 2024-03-17 18:02:00 36.94 Marie [facility] Body weight 2024-03-17 18:02:00 48.353 kg [facility] BMI 2024-03-17 18:02:00 23.90 kg/m2 [facility] Oxygen saturation in Arterial blood by Pulse oximetry 2024-03-17 18:02:00 98 /min [facility] height 2024-03-07 10:00:00 57 [in_i] [facility] weight 2024-03-07 10:00:00 106 [lb_av] [facility] temperature 2024-03-07 10:00:00 97.2 [degF] [facility] bmi 2024-03-07 10:00:00 22.94 kg/m2 [facility] oximetry 2024-03-07 10:00:00 96 % [facility] blood pressure systolic 2024-03-07 10:00:00 84 mm[Hg] [facility] blood pressure diastolic 2024-03-07 10:00:00 46 mm[Hg] [facility] Systolic blood pressure 2024-02-11 18:25:00 138 mm[Hg] [facility] Diastolic blood pressure 2024-02-11 18:25:00 59 mm[Hg] [facility] Heart rate 2024-02-11 18:25:00 60 /min [facility] Body temperature 2024-02-11 18:25:00 36.61 Marie [facility] Respiratory rate 2024-02-11 18:25:00 20 /min [facility] Body height 2024-02-11 18:25:00 142.2 cm [facility] Body weight 2024-02-11 18:25:00 48.988 kg [facility] BMI 2024-02-11 18:25:00 24.21 kg/m2 [facility] Oxygen saturation in Arterial blood by Pulse oximetry 2024-02-11 18:25:00 98 /min [facility] Systolic blood pressure 2024-01-14 18:26:00 144 mm[Hg] [facility] Diastolic blood pressure 2024-01-14 18:26:00 55 mm[Hg] [facility] Heart rate 2024-01-14 18:26:00 63 /min [facility] Body temperature 2024-01-14 18:25:00 36.44 Marie [facility] Respiratory rate 2024-01-14 18:25:00 18 /min [facility] Body height 2024-01-14 18:25:00 142.2 cm [facility] Body weight 2024-01-14 18:25:00 50.168 kg [facility] BMI 2024-01-14 18:25:00 24.80 kg/m2 [facility] Oxygen saturation in Arterial blood by Pulse oximetry 2024-01-14 18:25:00 99 /min [facility] Systolic blood pressure 2024-01-04 16:23:00 116 mm[Hg] [facility] Diastolic blood pressure 2024-01-04 16:23:00 52 mm[Hg] [facility] Heart rate 2024-01-04 16:23:00 60 /min [facility] Body temperature 2024-01-04 16:23:00 36.33 Marie [facility] Respiratory rate 2024-01-04 16:23:00 17 /min [facility] Body height 2024-01-04 16:23:00 144.8 cm [facility] Body weight 2024-01-04 16:23:00 48.217 kg [facility] BMI 2024-01-04 16:23:00 23.00 kg/m2 [facility] Oxygen saturation in Arterial blood by Pulse oximetry 2024-01-04 16:23:00 98 /min [facility] Systolic blood pressure 2023-12-28 18:15:00 112 mm[Hg] patient states this is her norm [facility] Diastolic blood pressure 2023-12-28 18:15:00 44 mm[Hg] patient states this is her norm [facility] Heart rate 2023-12-28 18:15:00 65 /min [facility] Respiratory rate 2023-12-28 18:15:00 18 /min [facility] Oxygen saturation in Arterial blood by Pulse oximetry 2023-12-28 18:15:00 98 /min [facility] Body temperature 2023-12-28 17:12:00 35.89 Marie [facility] Body height 2023-12-28 12:32:00 144.8 cm [facility] Body weight 2023-12-28 12:32:00 48.2 kg [facility] BMI 2023-12-28 12:32:00 22.99 kg/m2 [facility] Respiratory rate 2023-12-28 12:38:00 16 /min [facility] Systolic blood pressure 2023-12-28 12:32:00 131 mm[Hg] [facility] Diastolic blood pressure 2023-12-28 12:32:00 64 mm[Hg] [facility] Heart rate 2023-12-28 12:32:00 60 /min [facility] Body temperature 2023-12-28 12:32:00 36.22 Marie [facility] Body height 2023-12-28 12:32:00 144.8 cm [facility] Body weight 2023-12-28 12:32:00 48.2 kg [facility] BMI 2023-12-28 12:32:00 22.99 kg/m2 [facility] Oxygen saturation in Arterial blood by Pulse oximetry 2023-12-28 12:32:00 100 /min [facility] Systolic blood pressure 2023-12-27 18:29:00 107 mm[Hg] [facility] Diastolic blood pressure 2023-12-27 18:29:00 48 mm[Hg] [facility] Heart rate 2023-12-27 18:29:00 60 /min [facility] Body temperature 2023-12-27 18:29:00 36.44 Marie [facility] Respiratory rate 2023-12-27 18:29:00 17 /min [facility] Body height 2023-12-27 18:29:00 144.8 cm [facility] Body weight 2023-12-27 18:29:00 48.49 kg [facility] BMI 2023-12-27 18:29:00 23.13 kg/m2 [facility] Oxygen saturation in Arterial blood by Pulse oximetry 2023-12-27 18:29:00 96 /min [facility] Systolic blood pressure 2023-12-03 18:57:00 115 mm[Hg] [facility] Diastolic blood pressure 2023-12-03 18:57:00 46 mm[Hg] [facility] Heart rate 2023-12-03 18:57:00 60 /min [facility] Respiratory rate 2023-12-03 18:57:00 18 /min [facility] Body height 2023-12-03 18:57:00 144.8 cm [facility] Body weight 2023-12-03 18:57:00 48.081 kg [facility] BMI 2023-12-03 18:57:00 22.94 kg/m2 [facility] Oxygen saturation in Arterial blood by Pulse oximetry 2023-12-03 18:57:00 99 /min [facility] height 2023-11-09 09:30:00 57 [in_i] [facility] weight 2023-11-09 09:30:00 106.8 [lb_av] [facility] temperature 2023-11-09 09:30:00 97 [degF] [facility] bmi 2023-11-09 09:30:00 23.11 kg/m2 [facility] oximetry 2023-11-09 09:30:00 98 % [facility] blood pressure systolic 2023-11-09 09:30:00 102 mm[Hg] [facility] blood pressure diastolic 2023-11-09 09:30:00 52 mm[Hg] [facility] height 2023-11-09 09:40:00 57 [in_i] [facility] weight 2023-11-09 09:40:00 106.8 [lb_av] [facility] temperature 2023-11-09 09:40:00 97 [degF] [facility] bmi 2023-11-09 09:40:00 23.11 kg/m2 [facility] oximetry 2023-11-09 09:40:00 98 % [facility] blood pressure systolic 2023-11-09 09:40:00 102 mm[Hg] [facility] blood pressure diastolic 2023-11-09 09:40:00 52 mm[Hg] [facility] Systolic blood pressure 2023-11-05 15:54:00 109 mm[Hg] [facility] Diastolic blood pressure 2023-11-05 15:54:00 55 mm[Hg] [facility] Heart rate 2023-11-05 15:54:00 62 /min [facility] Body temperature 2023-11-05 15:54:00 36.67 Marie [facility] Respiratory rate 2023-11-05 15:54:00 18 /min [facility] Body height 2023-11-05 15:54:00 144.8 cm [facility] Body weight 2023-11-05 15:54:00 48.172 kg [facility] BMI 2023-11-05 15:54:00 22.98 kg/m2 [facility] Systolic blood pressure 2023-10-29 19:34:00 128 mm[Hg] [facility] [facility] Di[facility] pressure 2023-10-29 19:34:00 54 mm[Hg] [facility] Heart rate 2023-10-29 19:34:00 70 /min [facility] Body temperature 2023-10-29 19:34:00 36.61 Marie [facility] Respiratory rate 2023-10-29 19:34:00 20 /min [facility] Body height 2023-10-29 19:34:00 142.2 cm [facility] Body weight 2023-10-29 19:34:00 49.442 kg [facility] BMI 2023-10-29 19:34:00 24.44 kg/m2 [facility] Oxygen saturation in Arterial blood by Pulse oximetry 2023-10-29 19:34:00 97 /min [facility] Systolic blood pressure 2023-09-21 17:00:00 115 mm[Hg] [facility] Diastolic blood pressure 2023-09-21 17:00:00 41 mm[Hg] [facility] Heart rate 2023-09-21 17:00:00 59 /min [facility] Respiratory rate 2023-09-21 17:00:00 15 /min [facility] Oxygen saturation in Arterial blood by Pulse oximetry 2023-09-21 17:00:00 98 /min [facility] Body height 2023-09-18 19:51:00 149.9 cm [facility] Body weight 2023-09-18 19:51:00 47.174 kg [facility] BMI 2023-09-18 19:51:00 21.01 kg/m2 [facility] Respiratory rate 2023-09-21 14:53:19 0 /min [facility] Systolic blood pressure 2023-09-21 13:43:43 155 mm[Hg] [facility] Diastolic blood pressure 2023-09-21 13:43:43 57 mm[Hg] [facility] Oxygen saturation in Arterial blood by Pulse oximetry 2023-09-21 13:43:43 100 /min [facility] Body height 2023-09-18 19:51:00 149.9 cm [facility] Body weight 2023-09-18 19:51:00 47.174 kg [facility] BMI 2023-09-18 19:51:00 21.01 kg/m2 [facility] Systolic blood pressure 2023-09-17 21:16:00 128 mm[Hg] [facility] Diastolic blood pressure 2023-09-17 21:16:00 49 mm[Hg] [facility] Heart rate 2023-09-17 21:16:00 56 /min [facility] Respiratory rate 2023-09-17 21:16:00 18 /min [facility] Body height 2023-09-17 21:16:00 149.9 cm [facility] Body weight 2023-09-17 21:16:00 47.174 kg [facility] BMI 2023-09-17 21:16:00 21.01 kg/m2 [facility] Oxygen saturation in Arterial blood by Pulse oximetry 2023-09-17 21:16:00 97 /min [facility] Systolic blood pressure 2023-08-30 16:28:00 119 mm[Hg] [facility] Diastolic blood pressure 2023-08-30 16:28:00 56 mm[Hg] [facility] Heart rate 2023-08-30 16:28:00 50 /min [facility] Respiratory rate 2023-08-30 16:28:00 16 /min [facility] Body height 2023-08-30 16:28:00 142.2 cm [facility] Body weight 2023-08-30 16:28:00 47.9 kg [facility] BMI 2023-08-30 16:28:00 23.68 kg/m2 [facility] Oxygen saturation in Arterial blood by Pulse oximetry 2023-08-30 16:28:00 98 /min [facility] height 2023-08-10 11:20:00 57 [in_i] [facility] weight 2023-08-10 11:20:00 105.4 [lb_av] [facility] temperature 2023-08-10 11:20:00 98 [degF] [facility] bmi 2023-08-10 11:20:00 22.81 kg/m2 [facility] oximetry 2023-08-10 11:20:00 98 % [facility] blood pressure systolic 2023-08-10 11:20:00 110 mm[Hg] [facility] blood pressure diastolic 2023-08-10 11:20:00 62 mm[Hg] [facility] Systolic blood pressure 2023-06-29 16:22:00 122 mm[Hg] [facility] Diastolic blood pressure 2023-06-29 16:22:00 58 mm[Hg] [facility] Heart rate 2023-06-29 16:22:00 66 /min [facility] Body height 2023-06-29 16:22:00 142.2 cm [facility] Body weight 2023-06-29 16:22:00 47.9 kg [facility] BMI 2023-06-29 16:22:00 23.68 kg/m2 [facility] Oxygen saturation in Arterial blood by Pulse oximetry 2023-06-29 16:22:00 95 /min [facility] Systolic blood pressure 2023-06-01 21:53:00 163 mm[Hg] [facility] Diastolic blood pressure 2023-06-01 21:53:00 66 mm[Hg] [facility] Heart rate 2023-06-01 21:53:00 65 /min [facility] Respiratory rate 2023-06-01 21:53:00 20 /min [facility] Body height 2023-06-01 21:53:00 144.8 cm [facility] Body weight 2023-06-01 21:53:00 45.813 kg [facility] BMI 2023-06-01 21:53:00 21.86 kg/m2 [facility] Oxygen saturation in Arterial blood by Pulse oximetry 2023-06-01 21:53:00 99 /min [facility] Systolic blood pressure 2023-05-19 18:32:00 157 mm[Hg] [facility] Diastolic blood pressure 2023-05-19 18:32:00 60 mm[Hg] [facility] Heart rate 2023-05-19 18:32:00 54 /min [facility] Body temperature 2023-05-19 18:32:00 36 Marie [facility] Respiratory rate 2023-05-19 18:32:00 20 /min [facility] Oxygen saturation in Arterial blood by Pulse oximetry 2023-05-19 18:32:00 99 /min [facility] Body height 2023-05-18 21:41:00 144.8 cm [facility] Body weight 2023-05-18 21:41:00 46.222 kg STANDING [facility] BMI 2023-05-18 21:41:00 22.05 kg/m2 [facility] Systolic blood pressure 2023-05-17 13:35:00 119 mm[Hg] [facility] Diastolic blood pressure 2023-05-17 13:35:00 59 mm[Hg] [facility] Heart rate 2023-05-17 13:35:00 54 /min [facility] Respiratory rate 2023-05-17 13:35:00 17 /min [facility] Body height 2023-05-17 13:35:00 144.8 cm [facility] Body weight 2023-05-17 13:35:00 46.811 kg [facility] BMI 2023-05-17 13:35:00 22.33 kg/m2 [facility] Oxygen saturation in Arterial blood by Pulse oximetry 2023-05-17 13:35:00 98 /min [facility] Systolic blood pressure 2023-05-07 13:35:00 158 mm[Hg] [facility] Diastolic blood pressure 2023-05-07 13:35:00 64 mm[Hg] [facility] Heart rate 2023-05-07 13:31:00 52 /min [facility] Respiratory rate 2023-05-07 13:31:00 18 /min [facility] Body height 2023-05-07 13:31:00 144.8 cm [facility] Body weight 2023-05-07 13:31:00 47.174 kg [facility] BMI 2023-05-07 13:31:00 22.51 kg/m2 [facility] height 2023-05-04 11:20:00 57 [in_i] [facility] weight 2023-05-04 11:20:00 104.0 [lb_av] [facility] temperature 2023-05-04 11:20:00 98.2 [degF] [facility] bmi 2023-05-04 11:20:00 22.5 kg/m2 [facility] oximetry 2023-05-04 11:20:00 98 % [facility] respiratory rate 2023-05-04 11:20:00 18 /min [facility] blood pressure systolic 2023-05-04 11:20:00 124 mm[Hg] [facility] blood pressure diastolic 2023-05-04 11:20:00 69 mm[Hg] [facility] Systolic blood pressure 2023-04-20 14:31:00 146 mm[Hg] [facility] Diastolic blood pressure 2023-04-20 14:31:00 53 mm[Hg] [facility] Heart rate 2023-04-20 14:31:00 55 /min [facility] Oxygen saturation in Arterial blood by Pulse oximetry 2023-04-20 14:31:00 97 /min [facility] Body temperature 2023-04-20 14:28:00 36.56 Marie [facility] Respiratory rate 2023-04-20 14:28:00 17 /min [facility] Body height 2023-04-20 14:28:00 144.8 cm [facility] Body weight 2023-04-20 14:28:00 47.628 kg [facility] BMI 2023-04-20 14:28:00 22.72 kg/m2 [facility] Systolic blood pressure 2023-04-10 20:41:00 157 mm[Hg] [facility] Diastolic blood pressure 2023-04-10 20:41:00 63 mm[Hg] [facility] Heart rate 2023-04-10 20:41:00 59 /min [facility] Body temperature 2023-04-10 20:41:00 36.89 Marie [facility] Respiratory rate 2023-04-10 20:41:00 18 /min [facility] Oxygen saturation in Arterial blood by Pulse oximetry 2023-04-10 20:41:00 97 /min [facility] Body height 2023-04-10 10:35:00 144.8 cm [facility] Body weight 2023-04-10 10:35:00 47.174 kg [facility] BMI 2023-04-10 10:35:00 22.51 kg/m2 [facility] Systolic blood pressure 2023-04-07 16:29:00 115 mm[Hg] [facility] Diastolic blood pressure 2023-04-07 16:29:00 54 mm[Hg] [facility] Heart rate 2023-04-07 16:29:00 58 /min [facility] Body temperature 2023-04-07 16:29:00 36.89 Marie [facility] Respiratory rate 2023-04-07 16:29:00 18 /min [facility] Oxygen saturation in Arterial blood by Pulse oximetry 2023-04-07 16:29:00 96 /min [facility] Body weight 2023-04-07 08:24:00 49.47 kg [facility] BMI 2023-04-07 08:24:00 23.60 kg/m2 [facility] Body height 2023-04-06 19:32:00 144.8 cm [facility] Systolic blood pressure 2023-04-06 16:06:31 174 mm[Hg] [facility] Diastolic blood pressure 2023-04-06 16:06:31 73 mm[Hg] [facility] Respiratory rate 2023-04-06 16:06:31 17 /min [facility] Oxygen saturation in Arterial blood by Pulse oximetry 2023-04-06 16:06:31 100 /min [facility] Heart rate 2023-04-06 15:22:35 56 /min [facility] Body weight 2023-04-06 12:44:00 48.081 kg [facility] BMI 2023-04-06 12:44:00 23.60 kg/m2 [facility] Systolic blood pressure 2023-03-07 15:50:00 155 mm[Hg] [facility] Diastolic blood pressure 2023-03-07 15:50:00 58 mm[Hg] [facility] Heart rate 2023-03-07 15:43:00 57 /min [facility] Body temperature 2023-03-07 15:43:00 36.56 Marie [facility] Respiratory rate 2023-03-07 15:43:00 18 /min [facility] Body height 2023-03-07 15:43:00 144.8 cm [facility] Body weight 2023-03-07 15:43:00 46.72 kg [facility] BMI 2023-03-07 15:43:00 22.29 kg/m2 [facility] Oxygen saturation in Arterial blood by Pulse oximetry 2023-03-07 15:43:00 99 /min [facility] Heart rate 2023-03-06 07:32:00 62 /min [facility] Oxygen saturation in Arterial blood by Pulse oximetry 2023-03-06 07:32:00 98 /min [facility] Systolic blood pressure 2023-03-06 07:00:00 162 mm[Hg] [facility] Diastolic blood pressure 2023-03-06 07:00:00 57 mm[Hg] [facility] Respiratory rate 2023-03-06 07:00:00 17 /min [facility] Body temperature 2023-03-06 03:54:00 36.22 Marie [facility] Body height 2023-03-06 03:54:00 144.8 cm [facility] Body weight 2023-03-06 03:54:00 46.72 kg [facility] BMI 2023-03-06 03:54:00 22.29 kg/m2 [facility] Systolic blood pressure 2023-02-12 17:31:00 166 mm[Hg] [facility] Diastolic blood pressure 2023-02-12 17:31:00 55 mm[Hg] [facility] Heart rate 2023-02-12 17:31:00 60 /min [facility] Body temperature 2023-02-12 17:31:00 36.72 Marie [facility] Respiratory rate 2023-02-12 17:31:00 18 /min [facility] Body height 2023-02-12 17:31:00 147.3 cm [facility] Body weight 2023-02-12 17:31:00 47.628 kg [facility] BMI 2023-02-12 17:31:00 21.95 kg/m2 [facility] Oxygen saturation in Arterial blood by Pulse oximetry 2023-02-12 17:31:00 99 /min [facility] height 2023-02-02 10:30:00 57 [in_i] [facility] weight 2023-02-02 10:30:00 105.3 [lb_av] [facility] temperature 2023-02-02 10:30:00 96.3 [degF] [facility] bmi 2023-02-02 10:30:00 22.78 kg/m2 [facility] oximetry 2023-02-02 10:30:00 97 % [facility] respiratory rate 2023-02-02 10:30:00 17 /min [facility] blood pressure systolic 2023-02-02 10:30:00 130 mm[Hg] [facility] blood pressure diastolic 2023-02-02 10:30:00 67 mm[Hg] [facility] Body weight 2022-12-19 12:32:00 46.72 kg [facility] BMI 2022-12-19 12:32:00 22.29 kg/m2 [facility] Body weight 2022-12-19 12:32:00 46.72 kg [facility] BMI 2022-12-19 12:32:00 22.29 kg/m2 [facility] Systolic blood pressure 2022-11-16 13:53:00 114 mm[Hg] [facility] Diastolic blood pressure 2022-11-16 13:53:00 36 mm[Hg] [facility] Heart rate 2022-11-16 13:53:00 59 /min [facility] Oxygen saturation in Arterial blood by Pulse oximetry 2022-11-16 13:53:00 97 /min [facility] Body temperature 2022-11-16 13:51:00 36.5 Marie [facility] Respiratory rate 2022-11-16 13:51:00 17 /min [facility] Body weight 2022-11-16 13:51:00 47.038 kg [facility] BMI 2022-11-16 13:51:00 22.44 kg/m2 [facility] height 2022-11-03 08:50:00 57 [in_i] [facility] weight 2022-11-03 08:50:00 102.6 [lb_av] [facility] temperature 2022-11-03 08:50:00 97.2 [degF] [facility] bmi 2022-11-03 08:50:00 22.2 kg/m2 [facility] oximetry 2022-11-03 08:50:00 99 % [facility] respiratory rate 2022-11-03 08:50:00 16 /min [facility] blood pressure systolic 2022-11-03 08:50:00 126 mm[Hg] [facility] blood pressure diastolic 2022-11-03 08:50:00 64 mm[Hg] [facility] height 2022-11-03 08:50:00 57 [in_i] [facility] weight 2022-11-03 08:50:00 102.6 [lb_av] [facility] temperature 2022-11-03 08:50:00 97.2 [degF] [facility] bmi 2022-11-03 08:50:00 22.2 kg/m2 [facility] oximetry 2022-11-03 08:50:00 99 % [facility] respiratory rate 2022-11-03 08:50:00 16 /min [facility] blood pressure systolic 2022-11-03 08:50:00 126 mm[Hg] [facility] blood pressure diastolic 2022-11-03 08:50:00 64 mm[Hg] [facility] Systolic blood pressure 2022-10-13 15:08:00 138 mm[Hg] [facility] Diastolic blood pressure 2022-10-13 15:08:00 51 mm[Hg] [facility] Heart rate 2022-10-13 15:08:00 55 /min [facility] Respiratory rate 2022-10-13 15:08:00 20 /min [facility] Body weight 2022-10-13 15:08:00 54.432 kg [facility] BMI 2022-10-13 15:08:00 25.97 kg/m2 [facility] Oxygen saturation in Arterial blood by Pulse oximetry 2022-10-13 15:08:00 98 /min [facility] Systolic blood pressure 2022-08-24 21:29:00 119 mm[Hg] [facility] Diastolic blood pressure 2022-08-24 21:29:00 50 mm[Hg] [facility] Heart rate 2022-08-24 21:29:00 71 /min [facility] Body temperature 2022-08-24 21:29:00 36.61 Marie [facility] Respiratory rate 2022-08-24 21:29:00 17 /min [facility] Body height 2022-08-24 21:29:00 144.8 cm [facility] Body weight 2022-08-24 21:29:00 46.267 kg [facility] BMI 2022-08-24 21:29:00 22.07 kg/m2 [facility] Oxygen saturation in Arterial blood by Pulse oximetry 2022-08-24 21:29:00 98 /min [facility] Systolic blood pressure 2022-08-20 03:00:00 114 mm[Hg] [facility] Diastolic blood pressure 2022-08-20 03:00:00 53 mm[Hg] [facility] Heart rate 2022-08-20 03:00:00 70 /min [facility] Respiratory rate 2022-08-20 03:00:00 19 /min [facility] Oxygen saturation in Arterial blood by Pulse oximetry 2022-08-20 03:00:00 95 /min [facility] Body temperature 2022-08-20 00:44:00 36.61 Marie [facility] Body height 2022-08-20 00:44:00 144.8 cm [facility] Body weight 2022-08-20 00:44:00 46.267 kg [facility] BMI 2022-08-20 00:44:00 22.07 kg/m2 [facility] height 2022-08-11 08:40:00 57 [in_i] [facility] weight 2022-08-11 08:40:00 101.9 [lb_av] [facility] temperature 2022-08-11 08:40:00 97.1 [degF] [facility] bmi 2022-08-11 08:40:00 22.05 kg/m2 [facility] oximetry 2022-08-11 08:40:00 98 % [facility] respiratory rate 2022-08-11 08:40:00 16 /min [facility] blood pressure systolic 2022-08-11 08:40:00 138 mm[Hg] [facility] blood pressure diastolic 2022-08-11 08:40:00 63 mm[Hg] [facility] Systolic blood pressure 2022-07-12 21:31:00 117 mm[Hg] [facility] Diastolic blood pressure 2022-07-12 21:31:00 50 mm[Hg] [facility] Heart rate 2022-07-12 21:31:00 67 /min [facility] Body temperature 2022-07-12 21:31:00 37.11 Marie [facility] Respiratory rate 2022-07-12 21:31:00 18 /min [facility] Oxygen saturation in Arterial blood by Pulse oximetry 2022-07-12 21:31:00 97 /min [facility] Body weight 2022-07-12 12:00:00 45.269 kg [facility] BMI 2022-07-12 12:00:00 22.37 kg/m2 [facility] Body height 2022-07-11 22:34:00 142.2 cm [facility] Body weight 2022-07-11 13:00:00 46.267 kg [facility] BMI 2022-07-11 13:00:00 22.37 kg/m2 [facility] Systolic blood pressure 2022-04-18 16:25:00 125 mm[Hg] [facility] Diastolic blood pressure 2022-04-18 16:25:00 49 mm[Hg] [facility] Heart rate 2022-04-18 16:25:00 58 /min [facility] Respiratory rate 2022-04-18 16:25:00 17 /min [facility] Oxygen saturation in Arterial blood by Pulse oximetry 2022-04-18 16:25:00 95 /min [facility] Body weight 2022-04-18 14:00:00 45 kg [facility] BMI 2022-04-18 14:00:00 21.47 kg/m2 [facility] Systolic blood pressure 2022-04-18 13:25:05 131 mm[Hg] [facility] Diastolic blood pressure 2022-04-18 13:25:05 52 mm[Hg] [facility] Respiratory rate 2022-04-18 13:25:05 13 /min [facility] Oxygen saturation in Arterial blood by Pulse oximetry 2022-04-18 13:25:05 100 /min [facility] height 2022-03-09 09:30:00 57 [in_i] [facility] weight 2022-03-09 09:30:00 100 [lb_av] [facility] temperature 2022-03-09 09:30:00 98 [degF] [facility] bmi 2022-03-09 09:30:00 21.64 kg/m2 [facility] blood pressure systolic 2022-03-09 09:30:00 142 mm[Hg] [facility] blood pressure diastolic 2022-03-09 09:30:00 75 mm[Hg] [facility] Diastolic blood pressure 2022-03-06 13:40:00 60 mm[Hg] [facility] Heart rate 2022-03-06 13:40:00 61 /min [facility] Oxygen saturation in Arterial blood by Pulse oximetry 2022-03-06 13:40:00 99 /min [facility] Systolic blood pressure 2022-03-06 13:40:00 157 mm[Hg] [facility] Body temperature 2022-03-06 13:39:00 36 Marie [facility] Respiratory rate 2022-03-06 13:39:00 16 /min [facility] Body weight 2022-03-06 13:39:00 45.632 kg [facility] BMI 2022-03-06 13:39:00 21.77 kg/m2 [facility] height 2021-11-09 08:50:00 57 [in_i] [facility] weight 2021-11-09 08:50:00 99.3 [lb_av] [facility] temperature 2021-11-09 08:50:00 97.0 [degF] [facility] bmi 2021-11-09 08:50:00 21.49 kg/m2 [facility] oximetry 2021-11-09 08:50:00 95 % [facility] respiratory rate 2021-11-09 08:50:00 16 /min [facility] blood pressure systolic 2021-11-09 08:50:00 138 mm[Hg] [facility] blood pressure diastolic 2021-11-09 08:50:00 77 mm[Hg] [facility] height 2021-11-09 09:00:00 57 [in_i] [facility] weight 2021-11-09 09:00:00 99.3 [lb_av] [facility] temperature 2021-11-09 09:00:00 97 [degF] [facility] bmi 2021-11-09 09:00:00 21.49 kg/m2 [facility] oximetry 2021-11-09 09:00:00 95 % [facility] respiratory rate 2021-11-09 09:00:00 16 /min [facility] blood pressure systolic 2021-11-09 09:00:00 138 mm[Hg] [facility] blood pressure diastolic 2021-11-09 09:00:00 77 mm[Hg] [facility] height 2021-07-27 09:30:00 57 [in_i] [facility] weight 2021-07-27 09:30:00 100.4 [lb_av] [facility] temperature 2021-07-27 09:30:00 97.4 [degF] [facility] bmi 2021-07-27 09:30:00 21.72 kg/m2 [facility] oximetry 2021-07-27 09:30:00 99 % [facility] respiratory rate 2021-07-27 09:30:00 17 /min [facility] blood pressure systolic 2021-07-27 09:30:00 134 mm[Hg] [facility] blood pressure diastolic 2021-07-27 09:30:00 62 mm[Hg] [facility] height 2021-03-24 09:30:00 57 [in_i] [facility] weight 2021-03-24 09:30:00 104.2 [lb_av] [facility] temperature 2021-03-24 09:30:00 97.0 [degF] [facility] bmi 2021-03-24 09:30:00 22.55 kg/m2 [facility] oximetry 2021-03-24 09:30:00 98 % [facility] respiratory rate 2021-03-24 09:30:00 16 /min [facility] blood pressure systolic 2021-03-24 09:30:00 136 mm[Hg] [facility] blood pressure diastolic 2021-03-24 09:30:00 60 mm[Hg] [facility] Procedures Procedure Date / Time Performed Performing Clinician Source EKG-12 LEAD 2024-05-10 18:18:10 Micaela Howard [facility] TROPONIN I 2024-05-10 17:21:00 Micaela Howard [facility] MAGNESIUM 2024-05-10 16:00:00 Micaela Howard [facility] TROPONIN I 2024-05-10 16:00:00 Micaela Howard [facility] COMP. METABOLIC PANEL (36013) 2024-05-10 16:00:00 Micaela Howard [facility] CBC WITH DIFF 2024-05-10 16:00:00 Micaela Howard [facility] N-TERMINAL PRO-BNP 2024-05-10 16:00:00 Micaela Howard [facility] JAREN MULTI LEVEL - BY VASCULAR LAB 2024-03-10 16:36:14 Liang Thorpe [facility] DUPLEX ARTERIAL LEG RIGHT - BY VASCULAR LAB 2024 16:26:58 BryannaJosep boyd [facility] VENOUS REFLUX DUPLEX BILATERAL - BY VASCULAR LAB 2024 16:26:51 Josep Gould [facility] FL TIME OR (NON-REPORTABLE) 2023-12-28 16:05:00 Liang Thorpe [facility] FL TIME OR (NON-REPORTABLE) 2023-12-28 16:05:00 Liang Thorpe [facility] [id number] - CHG ANGIOGRAPHY EXTREMITY BILATERAL RS&I 2023-12-28 14:41:00 Liang Thorpe [facility] [id number] - CHG AORTOGRAPHY ABDOMINAL SERIALOGRAPHY RS&I 2023-12-28 14:41:00 Liang Thorpe [facility] [address] - CHG US VASC ACCESS SITS VSL PATENCY NDL ENTRY 2023-12-28 14:41:00 Liang Thorpe [facility] [address] - [place] SLCTV CATHJ 3RD+ ORD SLCTV ABDL PEL/LXTR [facility] 2023-12-28 14:41:00 Liang Thorpe [facility] [address] - [place] SLCTV CATHJ EA 2ND+ ORD ABDL PEL/LXTR ART [facility] 2023-12-28 14:41:00 Liang Thorpe [facility] [address] - [place] REVSC OPN/PRQ ILIAC ART W/STNT PLMT & ANGIOPLSTY 2023-12-28 14:41:00 Thorpe Liang [facility] [address] - [place] REVSC OPN/PRQ FEM/POP W/STNT/ATHRC/ANGIOP [facility] 2023-12-28 14:41:00 Liang Thorpe [facility] [address] - [place] REVSC OPN/PRQ TIB/IRASEMA W/STNT/ATHR/ANGIOP [facility] 2023-12-28 14:41:00 Liang Thorpe [facility] [address] - [place] THROMBOLYSIS ARTERIAL INFUSION ICRA RS&I INIT [place] 2023-12-28 14:41:00 Liang Thorpe [facility] POCT GLUCOSE (AUTOMATED) 2023-12-28 12:51:00 Liang Thorpe [facility] POCT GLUCOSE (AUTOMATED) 2023-12-28 12:51:00 Liang Thorpe [facility] MAGNESIUM 2023-11-09 18:18:00 Naomy Bravo [facility] BASIC METABOLIC PANEL (NA, K, CL, CO2, GLUCOSE, BUN, CREATININE, CA) 2023-11-09 18:18:00 Naomy Bravo [facility] N-TERMINAL PRO-BNP 2023-11-09 18:18:00 Naomy Bravo [facility] CARDIAC CATHETERIZATION 2023-09-21 15:03:13 [facility]ED[facility] 2023-09-21 15:03:13 [facility]ED[facility] 2023-09-21 15:03:13 Rogerio [facility] HB ECG ROUTINE & RHYTHM STRIP 2023-09-21 13:33:27 [facility]ED[facility] 2023-09-21 06:01:00 Doctor Unassigned, Bonesteel [facility] CBC WITH DIFF 2023-09-10 14:52:00 [facility] HB ECG ROUTINE & RHYTHM STRIP 2023-08-30 16:24:12 Rogerio [facility] JAREN EXTREMITY SINGLE LEVEL - BY VASCULAR LAB 2023-06-01 21:15:00 [facility] POCT GLUCOSE (AUTOMATED) 2023-05-19 15:16:00 Nilam Flores [facility] MAGNESIUM 2023-05-19 09:32:00 Alek Faria [facility] THYROID STIMULATING HORMONE 2023-05-19 09:32:00 [facility] BASIC METABOLIC PANEL (NA, K, CL, CO2, GLUCOSE, BUN, CREATININE, CA) 2023-05-19 09:32:00 [facility] VITAMIN B12, LEVEL 2023-05-19 03:57:00 [facility] TROPONIN I 2023-05-19 03:57:00 [facility] IRON PANEL 2023-05-19 03:57:00 [facility] VITAMIN D, 25-OH 2023-05-19 03:57:00 [facility] POCT GLUCOSE (AUTOMATED) 2023-05-19 03:01:00 Nilam Flores [facility] POCT GLUCOSE (AUTOMATED) 2023-05-18 21:43:00 Nilam Flores [facility] XR CHEST 1 VW 2023-05-18 16:45:00 Nicol [facility] TROPONIN I 2023-05-18 16:22:00 Nicol [facility] BASIC METABOLIC PANEL (NA, K, CL, CO2, GLUCOSE, BUN, CREATININE, CA) 2023-05-18 16:22:00 Nicol [facility] CBC WITH DIFF 2023-05-18 16:22:00 Nicol [facility] N-TERMINAL PRO-BNP 2023-05-18 16:22:00 Nicol [facility] HB ECG ROUTINE & RHYTHM STRIP 2023-05-18 15:53:38 Nicol [facility] CONSENT/REFUSAL FOR DIAGNOSIS AND TREATMENT 2023-05-18 15:48:08 Doctor Unassigned, Bonesteel [facility] POCT GLUCOSE (AUTOMATED) 2023-04-10 22:01:00 [facility] ACTIVATED PARTIAL THRMPLAS KOJO 2023-04-10 19:17:00 Wander Liriano [facility] POCT GLUCOSE (AUTOMATED) 2023-04-10 19:14:00 [facility] TROPONIN I 2023-04-10 16:09:00 Briana Adam [facility] POCT GLUCOSE (AUTOMATED) 2023-04-10 15:28:00 Abu-Sarah [facility] TRANSTHORACIC ECHO (TTE) COMPLETE W/ CONTRAST 2023-04-10 15:14:15 Briana Adam [facility] POCT GLUCOSE (AUTOMATED) 2023-04-10 12:37:00 Abu-AlexishPerla [facility] CK (CREATINE KINASE) + MB 2023-04-10 10:59:00 Timi Moore [facility] MAGNESIUM 2023-04-10 10:59:00 Wander Liriano [facility] TROPONIN I 2023-04-10 10:59:00 Wander Liriano [facility] BASIC METABOLIC PANEL (NA, K, CL, CO2, GLUCOSE, BUN, CREATININE, CA) 2023-04-10 10:59:00 Heri Wander [facility] CBC WITH DIFF 2023-04-10 10:59:00 Wander Liriano [facility] PROTHROMBIN TIME / INR 2023-04-10 10:59:00 Heri Wander [facility] ACTIVATED PARTIAL THRMPLAS KOJO 2023-04-10 10:59:00 HeriWander [facility] POCT GLUCOSE (AUTOMATED) 2023-04-07 17:16:00 [facility] POCT GLUCOSE (AUTOMATED) 2023-04-07 17:16:00 [facility] MAGNESIUM 2023-04-07 13:54:00 Deguesuman [facility] BASIC METABOLIC PANEL (NA, K, CL, CO2, GLUCOSE, BUN, CREATININE, CA) 2023-04-07 13:54:00 Deguesuman [facility] MAGNESIUM 2023-04-07 13:54:00 Deguesuman [facility] BASIC METABOLIC PANEL (NA, K, CL, CO2, GLUCOSE, BUN, CREATININE, CA) 2023-04-07 13:54:00 Deguesuman [facility] POCT GLUCOSE (AUTOMATED) 2023-04-07 13:53:00 [facility] POCT GLUCOSE (AUTOMATED) 2023-04-07 13:53:00 [facility] CBC WITH DIFF 2023-04-07 10:42:00 Degueure [facility] CBC WITH DIFF 2023-04-07 10:42:00 Deguesuman [facility] POCT GLUCOSE (AUTOMATED) 2023-04-07 03:41:00 [facility] POCT GLUCOSE (AUTOMATED) 2023-04-07 03:41:00 [facility] MAGNESIUM 2023-04-06 21:17:00 Degeleni [facility] COMP. METABOLIC PANEL (80080) 2023-04-06 21:17:00 Deguesuman [facility] CBC WITHOUT DIFF 2023-04-06 21:17:00 Degueure, [facility] MAGNESIUM 2023-04-06 21:17:00 Degueure, [facility] COMP. METABOLIC PANEL (30300) 2023-04-06 21:17:00 Degueure, [facility] CBC WITHOUT DIFF 2023-04-06 21:17:00 [facility] POCT GLUCOSE (AUTOMATED) 2023-04-06 20:59:00 [facility] POCT GLUCOSE (AUTOMATED) 2023-04-06 20:59:00 [facility] CARDIAC CATHETERIZATION 2023-04-06 16:47:12 Naomy Bravo [facility] CARDIAC CATHETERIZATION 2023-04-06 16:47:12 Naomy Bravo [facility] CARDIAC CATHETERIZATION 2023-04-06 16:47:12 Bravo, Sendil [facility] CARDIAC CATHETERIZATION 2023-04-06 16:47:12 Bravo, Sendellie [facility] CARDIAC CATHETERIZATION 2023-04-06 16:47:12 Ozzy Sendellie [facility] CARDIAC CATHETERIZATION 2023-04-06 16:47:12 Ozzy Sendil [facility] CARDIAC CATHETERIZATION 2023-04-06 16:47:12 Naomy Bravo [facility] POCT ACT LOW RANGE 2023-04-06 16:40:00 Naga Lakhani [facility] POCT ACT LOW RANGE 2023-04-06 16:14:00 Naga Lakhani [facility] TROPONIN I 2023-03-06 06:33:00 Romeo Mendieta [facility] TROPONIN I 2023-03-06 04:15:00 Romeo Mendieta [facility] COMP. METABOLIC PANEL (78113) 2023-03-06 04:15:00 Romeo Mendieta [facility] CBC WITH DIFF 2023-03-06 04:15:00 Romeo Mendieta [facility] PROTHROMBIN TIME / INR 2023-03-06 04:15:00 Romeo Mendieta [facility] N-TERMINAL PRO-BNP 2023-03-06 04:15:00 Romeo Mendieta [facility] ASSIGNMENT OF BENEFITS 2023-02-12 18:46:38 Doctor Unassigned, Bonesteel [facility] CONSENT/REFUSAL FOR DIAGNOSIS AND TREATMENT 2023-02-12 17:23:04 Doctor Unassigned, Bonesteel [facility] ELECTROPHYSIOLOGY PROCEDURE 2022-12-19 12:49:49 Brandon Arias [facility] ELECTROPHYSIOLOGY PROCEDURE 2022-12-19 12:49:00 Brandon Arias [facility] DISCLOSURE AND CONSENT, MEDICAL AND SURGICAL PROCEDURES 2022-12-19 05:01:00 Doctor Unassigned, Bonesteel [facility] MEDICAL RELEASE/CLEARANCE FORMS 2022-09-12 06:01:00 Doctor Unassigned, Bonesteel [facility] EKG-12 LEAD 2022-08-20 04:31:50 Romeo Mendieta [facility] XR CHEST 1 VW 2022-08-20 03:29:01 Romeo Mendieta [facility] TROPONIN I 2022-08-20 01:57:00 Romeo Mendieta [facility] COMP. METABOLIC PANEL (02277) 2022-08-20 01:57:00 Romeo Mendieta [facility] CBC WITH DIFF 2022-08-20 01:57:00 Romeo Mendieta [facility] URINALYSIS 2022-08-20 01:57:00 Romeo Mendieta [facility] CONSENT/REFUSAL FOR DIAGNOSIS AND TREATMENT 2022-08-20 00:38:57 Doctor Unassigned, Bonesteel [facility] POCT GLUCOSE (AUTOMATED) 2022-07-12 18:27:00 Pardeep Acosta [facility] POCT GLUCOSE (AUTOMATED) 2022-07-12 18:27:00 [facility] (TTE) COMPLETE W/ CONTRAST 2022-07-12 16:00:03 Catherine Segovia [facility] TRANSTHORACIC ECHO (TTE) COMPLETE W/ CONTRAST 2022-07-12 16:00:03 Catherine Segovia [facility] POCT GLUCOSE (AUTOMATED) 2022-07-12 14:55:00 [facility] PO[facility] GLUCOSE (AUTOMATED) 2022-07-12 14:55:00 [facility] HB ECG ROUTINE & RHYTHM STRIP 2022-07-12 13:59:42 Juliette [facility] MAGNESIUM 2022-07-12 10:37:00 Juliette [facility] BASIC METABOLIC PANEL (NA, K, CL, CO2, GLUCOSE, BUN, CREATININE, CA) 2022-07-12 10:37:00 Juliette [facility] LIPID PANEL (91233)(TOTAL CHOLESTEROL, TRIGLYCERIDES, HDL) 2022-07-12 10:37:00 Juliette [facility] CBC WITH DIFF 2022-07-12 10:37:00 Juliette [facility] MAGNESIUM 2022-07-12 10:37:00 Juliette [facility] BASIC METABOLIC PANEL (NA, K, CL, CO2, GLUCOSE, BUN, CREATININE, CA) 2022-07-12 10:37:00 Juliette [facility] LIPID PANEL (55781)(TOTAL CHOLESTEROL, TRIGLYCERIDES, HDL) 2022-07-12 10:37:00 Juliette [facility] CBC WITH DIFF 2022-07-12 10:37:00 Juliette [facility] GLYCOSYLATED HEMOGLOBIN (A1C) 2022-07-12 10:37:00 [facility] 2022-07-12 03:46:00 [facility] POCT GLUCOSE (AUTOMATED) 2022-07-12 03:46:00 [facility] POCT GLUCOSE (AUTOMATED) 2022-07-12 00:08:00 Pardeep Acosta [facility] POCT GLUCOSE (AUTOMATED) 2022-07-12 00:08:00 Pardeep Acosta [facility] POCT GLUCOSE (AUTOMATED) 2022-07-11 21:30:00 Naga Lakhani [facility] POCT GLUCOSE (AUTOMATED) 2022-07-11 21:30:00 Naga Lakhani [facility] CARDIAC CATHETERIZATION 2022-07-11 16:32:26 Naomy Bravo [facility] CARDIAC CATHETERIZATION 2022-07-11 16:32:26 Naomy Bravo [facility] CARDIAC CATHETERIZATION 2022-07-11 16:32:26 Naomy Bravo. [facility] CATH PROCEDURE LOG 2022-07-11 15:12:31 Naomy Bravo [facility] CATH PROCEDURE LOG 2022-07-11 15:12:31 Naomy Bravo [facility] COMP. METABOLIC PANEL ([id number]) 2022-07-07 15:55:00 Naomy Bravo [facility] CBC WITH DIFF 2022-07-07 15:55:00 Naomy Bravo [facility] PROTHROMBIN TIME / INR 2022-07-07 15:55:00 Naomy Bravo [facility] ACTIVATED PARTIAL THRMPLAS KOJO 2022-07-07 15:55:00 Naomy Bravo [facility] N-TERMINAL PRO-BNP 2022-07-07 15:55:00 Naomy Bravo [facility] CARDIAC CATHETERIZATION 2022-04-18 14:01:40 Naomy Bravo [facility] CARDIAC CATHETERIZATION 2022-04-18 14:01:40 Naomy Bravo [facility] OUTPATIENT CARDIAC CATHETERIZATION DOCUMENTS 2022-04-18 05:01:00 Doctor Unassigned, Bonesteel [facility] Encounters Start Date/Time End Date/Time Encounter Type Admission Type Attending Critical Access Hospital Care Facility Care Department Encounter ID Source 2024-04-18 11:15:00 Outpatient Strickland, Cydney [facility] [id number] [facility] 2022-08-10 09:04:01 Outpatient Strickland, Cydney [facility] [id number] [facility] 2022-08-08 09:10:00 Outpatient Strickland, Cydney ST[facility]ML[facility] ST[facility] [id number] [facility] 2022-07-06 15:20:00 Outpatient Strickland, Cydney STLMLC ST[facility] [id number] [facility] 2022-03-23 14:15:57 Outpatient MACRINA HENRIQUEZ [facility] [id number] [facility] 2021-08-17 14:33:36 Outpatient Strickland, Cydney STLMLC STLMLC [id number] [facility] 2021-08-17 12:59:39 Outpatient Strickland, Cydney STLMLC ST[facility] [id number] [facility] 2021-08-17 12:59:09 Outpatient Strickland, Cydney STLMLC ST[facility] [id number] [facility] 2021-08-17 12:25:40 Outpatient Strickland, Cydney STLMLC ST[facility] [id number] [facility] 2021-08-17 12:11:56 Outpatient Strickland, Cydney STLMLC ST[facility] [id number] [facility] 2021-08-17 11:21:41 Outpatient Strickland, Cydney STLMLC ST[facility] [id number] [facility] 2021-08-17 11:16:02 Outpatient Strickland, Cydney STLMLC ST[facility] [id number] [facility] 2021-08-17 11:07:32 Outpatient Strickland, Cydney ST[facility] ST[facility] [id number] [facility] 2021-08-17 11:07:20 [facility] [id number] [facility] 2021-08-17 11:06:39 [facility]ney [facility] [id number] [facility] 2021-05-23 00:00:12 Emergency [facility] [id number] [facility] 2024-05-12 11:30:00 2024-05-12 12:42:34 Outpatient R GILLES [facility] [id number] [facility] 2024-05-12 11:30:00 2024-05-12 12:00:00 [facility] 1.2.840.114 350.1.13.10 4.2.7.2.686 [id number] [facility] 2024-05-10 10:49:00 2024-05-10 13:26:00 Emergency X MICAELA HOWARD [facility] ERT [id number] [facility] 2024-05-10 10:49:00 2024-05-10 13:26:00 Emergency Micaela Howard [facility] 1.2.840.114 350.1.13.10 4.2.7.2.686 [id number] [facility] 2024-05-06 00:00:00 2024-05-08 14:55:54 Naomy Good [facility] 1.2.840.114 350.1.13.10 4.2.7.2.686 [id number] [facility] 2024-04-18 00:00:00 2024-04-18 00:00:00 OFFICE VISIT ESTAB PT LEVEL 3 [facility] [id number] 2024-03-17 13:15:00 2024-03-17 13:41:56 Outpatient R THORPELIANG THORPELIANG [facility] [id number] [facility] 2024-03-17 13:15:00 2024-03-17 13:41:56 [facility] 1..840.114 350.1.13.10 4.2.7.2.686 [id number] [facility] 2024-03-11 00:00:00 2024-03-11 00:00:00 (TEL) STLMLC ST[facility] [id number] [facility] 2024-03-10 10:23:36 2024-03-10 23:59:00 Outpatient R THORPELIANG ILA LIANG [facility] [id number] [facility] 2024-03-10 10:23:36 2024-03-10 23:59:00 Hospital Encounter Liang Thorpe [facility] 1..840.114 350.1.13.10 4.2.7.2.686 [id number] [facility] 2024-03-07 00:00:00 2024-03-07 00:00:00 OFFICE VISIT ESTAB PT LEVEL 4 STLMLC ST[facility] [id number] [facility] 2024-02-11 14:00:00 2024-02-11 14:00:50 Outpatient R LIANG THORPE MITCHE[facility] [id number] [facility] 2024-02-11 14:00:00 2024-02-11 14:00:50 Office Visit Liang Thorpe [facility] 1..840.114 350.1.13.10 4.2.7.2.686 [id number] [facility] 2024 09:35:18 2024 23:59:00 Hospital Encounter Liang Thorpe [facility] 1..840.114 350.1.13.10 4.2.7.2.686 [id number] [facility] 2024 09:34:37 2024 09:34:37 Outpatient R LIANG THORPE [facility] [id number] [facility] 2024 09:34:37 2024 09:34:37 Hospital Encounter Liang Thorpe [facility] 1.2.840.114 350.1.13.10 4.2.7.2.686 [id number] [facility] 2023-12-24 00:00:00 2024-01-22 10:43:39 Telephone Liang Thorpe [facility] 1.2.840.114 350.1.13.10 4.2.7.2.686 [id number] [facility] 2024-01-14 13:45:00 2024-01-14 13:50:59 Outpatient R LIANG THORPE [facility]CHELL [facility] [id number] [facility] 2024-01-14 13:45:00 2024-01-14 13:50:59 Office Visit Liang Thorpe [facility] 1..840.114 350.1.13.10 4.2.7.2.686 [id number] [facility] 2024-01-04 11:30:00 2024-01-04 11:43:55 Outpatient R NAOMY BRAVO [facility] [id number] [facility] 2024-01-04 11:30:00 2024-01-04 11:43:55 Office Visit Naomy Bravo [facility] 1..840.114 350.1.13.10 4.2.7.2.686 [id number] [facility] 2023-12-31 15:30:00 2023-12-31 15:30:00 Outpatient R LIANG THORPE [facility] [id number] [facility] 2023-12-30 00:00:00 2023-12-31 08:21:33 [facility]omy Good [facility] 1.2.840.114 350.1.13.10 4.2.7.2.686 [id number] [facility] 2023-12-28 07:19:00 2023-12-28 13:41:00 Outpatient R LIANG THORPE [facility]CHELL [facility] [id number] [facility] 2023-12-28 07:19:00 2023-12-28 13:41:00 Hospital Encounter [facility] 1.2.840.114 350.1.13.10 4.2.7.2.686 [id number] [facility] 2023-12-28 09:06:00 2023-12-28 10:56:00 Surgery [facility] 1.2.840.114 350.1.13.10 4.2.7.2.686 [id number] [facility] 2023-12-27 13:40:00 2023-12-27 13:53:42 Outpatient R NICHO SYKES CHOCKALINGA M [facility] [id number] [facility] 2023-12-27 13:40:00 2023-12-27 13:53:42 Office Visit Nicho Sykes [facility] 1.2.840.114 350.1.13.10 4.2.7.2.686 [id number] [facility] 2023-12-03 14:00:00 2023-12-03 14:46:51 Outpatient R LIANG THORPE MITCHELL [facility] [id number] [facility] 2023-12-03 14:00:00 2023-12-03 14:46:51 Office Visit Liang Thorpe [facility] 1.2840.114 350.1.13.10 4.2.7.2.686 [id number] [facility] 2023-10-31 00:00:00 2023-12-01 18:05:52 Patient Secure Msg Liang Thorpe [facility] 1.2840.114 350.1.13.10 4.2.7.2.686 [id number] [facility] 2023-11-29 10:40:00 2023-11-29 10:40:00 Outpatient R NICHO SYKES [facility]A [facility] [id number] [facility] 2023-11-12 00:00:00 2023-11-12 00:00:00 Telephone Naomy Bravo [facility] 1.2840.114 350.1.13.10 4.2.7.2.686 [id number] [facility] 2023-11-09 12:28:03 2023-11-09 23:59:00 Outpatient R LIANG THORPE [facility]CHELL [facility] [id number] [facility] 2023-11-09 12:28:03 2023-11-09 23:59:00 Hospital Encounter Liang Thorpe [facility] 1.20.114 350.1.13.10 4.2.7.2.686 [id number] [facility] 2023-11-09 12:30:00 2023-11-09 12:45:00 [employer] Student Coordinator Visit Pob, Adc Lab Main Liang Thorpe [facility] 1.2840.114 350.1.13.10 4.2.7.2.686 [id number] [facility] 2023-11-09 12:27:44 2023-11-09 12:27:44 Hospital Encounter Liang Thorpe [facility] 1.2.840.114 350.1.13.10 4.2.7.2.686 [id number] [facility] 2023-11-09 00:00:00 2023-11-09 00:00:00 OFFICE VISIT ESTAB PT LEVEL 4 [facility] [id number] [facility] 2023-11-09 00:00:00 2023-11-09 00:00:00 SUB ANNUAL [facility] WELLNESS VISIT [facility] [id number] [facility] 2023-11-05 11:00:00 2023-11-05 11:27:45 Outpatient R NAGA LAKHANI [facility] [id number] [facility] 2023-11-05 11:00:00 2023-11-05 11:27:45 Office Visit Naga Lakhani [facility] 1.2.840.114 350.1.13.10 4.2.7.2.686 [id number] [facility] 2023-11-01 11:03:16 2023-11-01 23:59:00 Outpatient R NICHO SYKES [facility] [id number] [facility] 2023-11-01 11:03:16 2023-11-01 23:59:00 Hospital Encounter [facility] 1.2.840.114 350.1.13.10 4.2.7.2.686 [id number] [facility] 2023-10-29 14:30:00 2023-10-29 15:14:53 Outpatient R LIANG THORPE MITCHELL [facility] [id number] [facility] 2023-10-29 14:30:00 2023-10-29 15:14:53 Office Visit Liang Thorpe [facility] 1.2.840.114 350.1.13.10 4.2.7.2.686 [id number] [facility] 2023-10-24 00:00:00 2023-10-24 00:00:00 Patient Secure Msg Liang Thorpe [facility] 1.2.840.114 350.1.13.10 4.2.7.2.686 [id number] [facility] 2023-10-22 00:00:00 2023-10-22 00:00:00 Patient Secure Msg Naomy Bravo [facility] 1.2.840.114 350.1.13.10 4.2.7.2.686 [id number] [facility] 2023-10-17 00:00:00 2023-10-17 00:00:00 (WEB) STLMLC [facility] [id number] [facility] 2023-10-05 09:30:30 2023-10-05 23:59:00 Outpatient NICHO ROQUE [facility] [id number] [facility] 2023-10-05 09:30:30 2023-10-05 23:59:00 Hospital Encounter Nicho Sykes [facility] 1.2.840.114 350.1.13.10 4.2.7.2.686 [id number] [facility] 2023-09-21 06:20:00 2023-09-21 11:47:00 Outpatient NILAM MICHELLE SHUJA [facility] [id number] [facility] 2023-09-21 06:20:00 2023-09-21 11:47:00 Hospital Encounter RogerioNicho Shuja Ur [facility] 1.2.840.114 350.1.13.10 4.2.7.2.686 [id number] [facility] 2023-09-21 07:55:00 2023-09-21 08:55:00 Surgery Rogerio Nicho roxy [facility] 1.2.840.114 350.1.13.10 4.2.7.2.686 [id number] [facility] 2023-09-21 00:00:00 2023-09-21 00:00:00 Orders Only Doctor Unassigned, Bonesteel [facility] 1.2.840.114 350.1.13.10 4.2.7.2.686 [id number] [facility] 2023-09-17 15:30:00 2023-09-17 16:03:02 Outpatient R LIANG THORPE [facility]CHE[facility] [id number] [facility] [facility] 2023-09-17 15:30:00 2023-09-17 16:03:02 Office Visit Liang Thorpe [facility] 1..840.114 350.1.13.10 4.2.7.2.686 [id number] [facility] 2023-09-10 08:30:00 2023-09-10 08:45:00 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 Exchange 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 Visit Pob, Adc Lab Main Naomy Bravo [facility] 1..840.114 350.1.13.10 4.2.7.2.686 [id number] [facility] 2023-09-10 08:30:00 2023-09-10 08:30:00 Outpatient R NAOMY BRAVO [facility] [id number] [facility] 2023-09-10 00:00:00 2023-09-10 00:00:00 Telephone Nicho Sykes [facility] 1.2.840.114 350.1.13.10 4.2.7.2.686 [id number] 059 [id number] [facility] 2023-08-31 00:00:00 2023-08-31 00:00:00 (WEB) STLMLC STLMLC [id number] [facility] 2023-08-31 00:00:00 2023-08-31 00:00:00 (WEB) STLMLC STLMLC [id number] [facility] 2023-08-30 10:20:00 2023-08-30 10:53:46 Outpatient NICHO ROQUE [facility]INGA [facility] [id number] [facility] 2023-08-30 10:20:00 2023-08-30 10:53:46 Office Visit Nicho Sykes [address]2.840.114 350.1.13.10 4.2.7.2.686 [id number] 059 [id number] [facility] 2023-08-23 00:00:00 2023-08-23 00:00:00 Telephone Nicho Sykes [facility] 1.2.840.114 350.1.13.10 4.2.7.2.686 [id number] [id number] [facility] 2023-08-15 00:00:00 2023-08-15 00:00:00 (WEB) STLMLC STLMLC [id number] [facility] 2023-08-13 14:45:00 2023-08-13 14:45:00 Outpatient LIANG GIMENEZ MITCHELL [facility] [id number] [facility] 2023-08-10 00:00:00 2023-08-10 00:00:00 OFFICE VISIT ESTAB PT LEVEL 4 STLMLC STLMLC [id number] [facility] 2023-08-01 00:00:00 2023-08-01 00:00:00 Refill [facility] 1.2.840.114 350.1.13.10 4.2.7.2.686 [id number] 059 [id number] [facility] 2023-08-01 00:00:00 2023-08-01 00:00:00 Refill Naomy Bravo [facility] 1.2.840.114 350.1.13.10 4.2.7.2.686 [id number] 059 [id number] [facility] 2023-07-13 00:00:00 2023-07-13 00:00:00 Refill Naomy Bravo [facility] 1.2.840.114 350.1.13.10 4.2.7.2.686 [id number] 059 [id number] [facility] 2023-07-10 00:00:00 2023-07-10 00:00:00 Refill Naomy BravoHAviva [facility] 1.2.840.114 350.1.13.10 4.2.7.2.686 [id number] 059 [id number] [facility] 2023-06-29 11:00:00 2023-06-29 11:15:00 Foreign Exchange Student Coordinator Visit 2, Adc Lab Naomy BravoHAviva [facility] 1.2.840.114 350.1.13.10 4.2.7.2.686 [id number] [facility] 2023-06-29 10:30:00 2023-06-29 11:14:12 Outpatient R NAOMY BRAVO [facility] [id number] [facility] 2023-06-29 10:30:00 2023-06-29 11:14:12 Office Visit Naomy Bravo [facility] 1..840.114 350.1.13.10 4.2.7.2.686 [id number] 059 [id number] [facility] 2023-06-29 00:00:00 2023-06-29 00:00:00 Patient Secure Msg Doctor Unassigned, Bonesteel [facility] 1.840.114 350.1.13.10 4.2.7.2.686 [id number] 059 [id number] [facility] 2023-06-19 00:00:00 2023-06-19 00:00:[address] [facility] 1..840.114 350.1.13.10 4.2.7.2.686 [id number] 059 [id number] [facility] 2023-06-11 00:00:00 2023-06-11 00:00:00 (TEL) STLC STLC [id number] [facility] 2023-06-01 14:36:38 2023-06-01 23:59:00 Hospital Encounter Naga Lakhani [facility] 1..840.114 350.1.13.10 4.2.7.2.686 [id number] [facility] 2023-06-01 14:36:28 2023-06-01 23:59:00 Outpatient R NICHO SYKES [facility] [id number] [facility] 2023-06-01 14:36:28 2023-06-01 23:59:00 Hospital Encounter Nicho Sykes [facility] 1..840.114 350.1.13.10 4.2.7.2.686 [id number] [id number] [facility] 2023-06-01 00:00:00 2023-06-01 00:00:00 (TEL) STLMLC STLMLC [id number] [facility] 2023-05-22 00:00:00 2023-05-22 00:00:[address] [facility] 1.2.840.114 350.1.13.10 4.2.7.2.686 [id number] 059 [id number] [facility] 2023-05-21 00:00:00 2023-05-21 00:00:00 (TEL) STLMLC STLMLC [id number] [facility] 2023-05-21 00:00:00 2023-05-21 00:00:00 Transition of Care Marly Hanley 1..840.114 350.1.13.10 4.2.7.2.686 [id number] [facility] 2023-05-18 10:54:00 2023-05-19 15:10:00 Outpatient X NILAM FLORES [facility] [id number] [facility] 2023-05-18 10:54:00 2023-05-19 15:10:00 Emergency Nilam Flores [facility] 1..840.114 350.1.13.10 4.2.7.2.686 [id number] 094 [id number] [facility] 2023-05-17 08:40:00 2023-05-17 08:55:15 Outpatient R NICHO SYKES [facility] [id number] [facility] 2023-05-17 08:40:00 2023-05-17 08:55:15 Office Visit Nicho Sykes [facility] 1.2.840.114 350.1.13.10 4.2.7.2.686 [id number] 059 [id number] [facility] 2023-05-09 00:00:00 2023-05-09 00:00:00 Telephone Nicho Sykes roxy [facility] 1.2.840.114 350.1.13.10 4.2.7.2.686 [id number] [id number] [facility] 2023-05-07 08:30:00 2023-05-07 09:00:00 Office Visit Naga Lakhani [facility] 1.2.840.114 350.1.13.10 4.2.7.2.686 [id number] [id number] [facility] 2023-05-07 08:30:00 2023-05-07 08:30:00 Outpatient R NAGA LAKHANI [facility] [id number] [facility] 2023-05-04 00:00:00 2023-05-04 00:00:00 OFFICE VISIT ESTAB PT LEVEL 4 STLMLC STLMLC [id number] [facility] 2023-04-23 00:00:00 2023-04-23 00:00:00 Patient Secure Msg Naomy Bravo [facility] 1.2.840.114 350.1.13.10 4.2.7.2.686 [id number] 059 [id number] [facility] 2023-04-20 10:00:00 2023-04-20 10:43:38 Outpatient R NAOMY BRAVO [facility] [id number] [facility] 2023-04-20 10:00:00 2023-04-20 10:43:38 Office Visit Naomy Bravo [facility] 1.2.840.114 350.1.13.10 4.2.7.2.686 [id number] 059 [id number] [facility] 2023-04-13 00:00:00 2023-04-13 00:00:00 Patient Secure Msg Doctor Unassigned, Bonesteel [facility] 1.2840.114 350.1.13.10 4.2.7.2.686 [id number] 019 [id number] [facility] 2023-04-11 00:00:00 2023-04-11 00:00:00 Transition of Care Marly Hanley 1.2840.114 350.1.13.10 4.2.7.2.686 [id number] [facility] 2023-04-10 05:27:00 2023-04-10 17:47:00 Outpatient U [facility] [id number] [facility] 2023-04-10 05:27:00 2023-04-10 17:47:00 Hospital Encounter [facility] 1.840.114 350.1.13.10 4.2.7.2.686 [id number] 090 [id number] [facility] 2023-04-09 00:00:00 2023-04-09 00:00:00 Patient Secure Msg Naomy Bravo [facility] 1.2.840.114 350.1.13.10 4.2.7.2.686 [id number] 059 [id number] [facility] 2023-04-06 06:31:00 2023-04-07 15:40:00 Outpatient YVONNE CASTRO [facility] [id number] [facility] 2023-04-06 06:31:00 2023-04-07 15:40:00 Hospital Encounter Naga Lakhani Aiham Shalaby, Mostafa Helmy [facility] 1.2.840.114 350.1.13.10 4.2.7.2.686 [id number] 090 [id number] [facility] 2023-04-06 09:08:00 2023-04-06 11:08:00 Surgery Naga Lakhani Rupesh [facility] 1.2.840.114 350.1.13.10 4.2.7.2.686 [id number] [id number] [facility] 2023-03-30 10:15:00 2023-03-30 10:30:00 Foreign Exchange Student Coordinator Visit 1, Adc Lab Griffin Fernandes [facility] 1.2.840.114 350.1.13.10 4.2.7.2.686 [id number] [facility] 2023-03-30 10:15:00 2023-03-30 10:15:00 Outpatient GRIFFIN AGUSTIN [facility] [id number] [facility] 2023-03-28 00:00:00 2023-03-28 00:00:00 Patient Secure Naomy Erwin [facility] 1.2840.114 350.1.13.10 4.2.7.2.686 [id number] 059 [id number] [facility] 2023-03-14 00:00:00 2023-03-14 00:00:00 Telephone Unassigned, Cath/Ep [facility] 1.2.840.114 350.1.13.10 4.2.7.2.686 [id number] [id number] [facility] 2023-03-07 10:30:00 2023-03-07 11:29:01 Outpatient NAOMY GLEASON [facility] [id number] [facility] 2023-03-07 10:30:00 2023-03-07 11:29:01 Office Visit Naomy Bravo [facility] 1.2.840.114 350.1.13.10 4.2.7.2.686 [id number] 059 [id number] [facility] 2023-03-05 22:57:00 2023-03-06 02:35:00 Emergency X ROMEO MENDIETA [facility] ERT [id number] [facility] 2023-03-05 22:57:00 2023-03-06 02:35:00 Emergency Romeo Mendieta S [facility] 1.2.840.114 350.1.13.10 4.2.7.2.686 [id number] 084 [id number] [facility] 2023-03-06 00:00:00 2023-03-06 00:00:00 Telephone Naomy Bravo [facility] 1.2.840.114 350.1.13.10 4.2.7.2.686 [id number] [facility] 2023-02-28 00:00:00 2023-02-28 00:00:00 (TEL) STLMLC STLMLC [id number] [facility] 2023-02-12 12:32:00 2023-02-12 14:30:00 Emergency X MARY MEJIA [facility] ERT [id number] [facility] 2023-02-12 12:32:00 2023-02-12 14:30:00 Emergency Mary Mejia [facility] 1.2.840.114 350.1.13.10 4.2.7.2.686 [id number] [id number] [facility] 2023-02-12 10:00:00 2023-02-12 10:00:00 Outpatient R NAOMY BRAVO [facility] [id number] [facility] 2023-02-02 00:00:00 2023-02-02 00:00:00 OFFICE VISIT ESTAB PT LEVEL 4 STLMLC STLMLC [id number] [facility] 2023-01-02 13:03:41 2023-01-02 23:59:00 Outpatient BRANDON COHEN [facility] [id number] [facility] 2023-01-02 13:03:41 2023-01-02 23:59:00 Hospital Encounter [facility] 1.2.840.114 350.1.13.10 4.2.7.2.686 [id number] [facility] 2022-12-20 00:00:00 2022-12-20 00:00:00 Patient Secure [facility] Erwin [facility] 1.2840.114 350.1.13.10 4.2.7.2.686 [id number] 059 [id number] [facility] 2022-12-19 12:00:00 2022-12-19 12:45:00 Surgery [facility] 1.2.840.114 350.1.13.10 4.2.7.2.686 [id number] [id number] [facility] 2022-12-19 06:19:00 2022-12-19 09:46:00 Outpatient Elis ARIAS [facility] [id number] [facility] 2022-12-19 06:19:00 2022-12-19 09:46:00 Hospital Encounter [facility] 1.2.840.114 350.1.13.10 4.2.7.2.686 [id number] [facility] 2022-12-19 00:00:00 2022-12-19 00:00:00 Orders Only Doctor Unassigned, Bonesteel [facility] 1.2.840.114 350.1.13.10 4.2.7.2.686 [id number] [facility] 2022-12-15 10:00:00 2022-12-15 10:15:00 Foreign Exchange Student Coordinator Visit Pob, Adc Lab Main Naomy Bravo [facility] 1.2.840.114 350.1.13.10 4.2.7.2.686 [id number] [facility] 2022-12-15 10:00:00 2022-12-15 10:00:00 Outpatient R NAOMY BRAVO [facility] [id number] [facility] 2022-12-05 00:00:00 2022-12-05 00:00:00 Telephone Naomy Bravo [facility] 1.2.840.114 350.1.13.10 4.2.7.2.686 [id number] 059 [id number] [facility] 2022-11-16 09:00:00 2022-11-16 09:20:00 Office Visit Brandon Arias [facility] 1.2.840.114 350.1.13.10 4.2.7.2.686 [id number] 059 [id number] [facility] 2022-11-16 09:00:00 2022-11-16 09:00:00 Outpatient BRANDON COHEN [facility] [id number] [facility] 2022-11-16 00:00:00 2022-11-16 00:00:00 Telephone Brandon Arias [facility] 1.2.840.114 350.1.13.10 4.2.7.2.686 [id number] [facility] 2022-11-03 00:00:00 2022-11-03 00:00:00 OFFICE VISIT ESTAB PT LEVEL 4 STLMLC STLMLC [id number] [facility] 2022-11-03 00:00:00 2022-11-03 00:00:00 (MCR WELL) Medicare Wellness STLMLC STLMLC [id number] [facility] 2022-10-20 10:00:00 2022-10-20 10:00:00 Outpatient R NAOMY BRAVO [facility] [id number] [facility] 2022-10-13 10:00:00 2022-10-13 10:36:05 Outpatient R NAOMY BRAVO [facility] [id number] [facility] 2022-10-13 10:00:00 2022-10-13 10:36:05 Office Visit Naomy Bravo [facility] 1.2.840.114 350.1.13.10 4.2.7.2.686 [id number] 059 [id number] [facility] 2022-10-02 00:00:00 2022-10-02 00:00:00 Telephone Naomy Bravo [facility] 1..840.114 350.1.13.10 4.2.7.2.686 [id number] 059 [id number] [facility] 2022-09-12 00:00:00 2022-09-12 00:00:00 Orders Only Doctor Unassigned, Bonesteel [facility] 1.2.840.114 350.1.13.10 4.2.7.2.686 [id number] [facility] 2022-09-08 09:30:00 2022-09-08 09:30:00 Outpatient R NAOMY BRAVO [facility] [id number] [facility] 2022-09-08 09:30:00 2022-09-08 09:30:00 Outpatient R NAOMY BRAVO [facility] [id number] [facility] 2022-09-08 00:00:00 2022-09-08 00:00:00 Patient Secure Msg Naomy Bravo [facility] 1.2.840.114 350.1.13.10 4.2.7.2.686 [id number] 059 [id number] [facility] 2022-08-24 08:30:00 2022-08-24 23:59:00 Outpatient R JANET BRAVOELLIE [facility] [id number] [facility] 2022-08-24 15:30:00 2022-08-24 16:20:54 Office Visit Naomy BravoAviva [facility] 1.840.114 350.1.13.10 4.2.7.2.686 [id number] 059 [id number] [facility] 2022-08-21 00:00:00 2022-08-21 00:00:00 Patient Secure Msg Oz[facility] 1.840.114 350.1.13.10 4.2.7.2.686 [id number] [id number] [facility] 2022-08-19 18:46:00 2022-08-19 22:45:00 Emergency X ROMEO MENDIETA [facility] ERT [id number] [facility] 2022-08-19 18:46:00 2022-08-19 22:45:00 Emergency Romeo Mendieta S [facility] 1.840.114 350.1.13.10 4.2.7.2.686 [id number] [id number] [facility] 2022-08-11 00:00:00 2022-08-11 00:00:00 OFFICE VISIT ESTAB PT LEVEL 4 STLMLC STLMLC [id number] [facility] 2022-07-20 00:00:00 2022-07-20 00:00:00 Patient Secure Msg Doctor Unassigned, Bonesteel [facility] 1..840.114 350.1.13.10 4.2.7.2.686 [id number] 059 [id number] [facility] 2022-07-11 07:09:00 2022-07-12 17:04:00 Outpatient PARDEEP ALVAREZ [facility] [id number] [facility] 2022-07-11 07:09:00 2022-07-12 17:04:00 [facility] 1.2.840.114 350.1.13.10 4.2.7.2.686 [id number] 090 [id number] [facility] 2022-07-11 05:05:00 2022-07-11 07:05:00 Surgery [facility] 1.2.840.114 350.1.13.10 4.2.7.2.686 [id number] [id number] [facility] 2022-07-10 00:00:00 2022-07-10 00:00:00 Telephone Naomy Bravo [facility] 1.2.840.114 350.1.13.10 4.2.7.2.686 [id number] 059 [id number] [facility] 2022-07-07 11:00:00 2022-07-07 11:15:00 Foreign Exchange Student Coordinator Visit Pob, Adc Lab Main [facility] BUILDING 1.2.840.114 350.1.13.10 4.2.7.2.686 [id number] [facility] 2022-07-07 11:00:00 2022-07-07 11:00:00 Outpatient GRIFFIN AGUSTIN [facility] [id number] [facility] 2022-06-26 00:00:00 2022-06-26 00:00:00 Patient Secure Msg Naomy Bravo [facility] 1.2.840.114 350.1.13.10 4.2.7.2.686 [id number] 059 [id number] [facility] 2022-06-23 00:00:00 2022-06-23 00:00:00 Telephone Naga Lakhani [facility] 1.2.840.114 350.1.13.10 4.2.7.2.686 [id number] [id number] [facility] 2022-06-14 00:00:00 2022-06-14 00:00:00 (TEL) STLMLC STLMLC [id number] [facility] 2022-06-14 00:00:00 2022-06-14 00:00:00 Patient Secure Msg Naomy BravoHAviva [facility] 1.2840.114 350.1.13.10 4.2.7.2.686 [id number] 059 [id number] [facility] 2022-06-14 00:00:00 2022-06-14 00:00:00 Patient Secure Msg Naomy Bravo [facility] 1.2.840.114 350.1.13.10 4.2.7.2.686 [id number] [facility] 2022-06-13 00:00:00 2022-06-13 00:00:00 Telephone Naomy Bravo.HAviva [facility] 1.2.840.114 350.1.13.10 4.2.7.2.686 [id number] 059 [id number] [facility] 2022-04-26 00:00:00 2022-04-26 00:00:00 Patient Secure Msg Naomy Bravo K.HAviva [facility] 1.2.840.114 350.1.13.10 4.2.7.2.686 [id number] 059 [id number] [facility] 2022-04-19 00:00:00 2022-04-19 00:00:00 Telephone Naomy Bravo [facility] 1.2.840.114 350.1.13.10 4.2.7.2.686 [id number] 059 [id number] [facility] 2022-04-18 06:18:00 2022-04-18 12:18:00 Outpatient R NAOMY BRAVO [facility] CCA [id number] [facility] 2022-04-18 06:18:00 2022-04-18 12:18:00 Hospital Encounter Naomy Bravo [facility] 1.2840.114 350.1.13.10 4.2.7.2.686 [id number] [facility] 2022-04-18 07:30:00 2022-04-18 08:30:00 Surgery Naga Lakhani [facility] 1.2.840.114 350.1.13.10 4.2.7.2.686 [id number] [facility] 2022-04-18 00:00:00 2022-04-18 00:00:00 Telephone Naomy Bravo [facility] 1.2.840.114 350.1.13.10 4.2.7.2.686 [id number] 059 [id number] [facility] 2022-04-18 00:00:00 2022-04-18 00:00:00 Orders Only Doctor Unassigned, Bonesteel [facility] 1.2840.114 350.1.13.10 4.2.7.2.686 [id number] [id number] [facility] 2022-04-14 10:45:00 2022-04-14 11:00:00 Foreign Exchange Student Coordinator Visit 1, Adc Lab Naomy Bravo [facility] 1.2.840.114 350.1.13.10 4.2.7.2.686 [id number] [facility] 2022-04-14 10:30:00 2022-04-14 10:45:00 Laboratory Only Only, Adc Test Naomy Bravo [facility] 1.2.840.114 350.1.13.10 4.2.7.2.686 [id number] [facility] 2022-04-14 10:30:00 2022-04-14 10:30:00 Outpatient R NAOMY BRAVO [facility] [id number] [facility] 2022-04-03 00:00:00 2022-04-03 00:00:00 Telephone Unassigned, Cath/Ep [facility] 1.2.840.114 350.1.13.10 4.2.7.2.686 [id number] [facility] 2022-03-31 00:00:00 2022-03-31 00:00:00 Telephone Naomy BravoAviva [facility] PROFESSIO [facility] 1.2.840.114 350.1.13.10 4.2.7.2.686 [id number] [facility] 2022-03-30 10:50:03 2022-03-30 23:59:00 Hospital Encounter Jeremias [facility] 1.2.840.114 350.1.13.10 4.2.7.2.686 [id number] [facility] 2022-03-30 10:49:00 2022-03-30 10:49:00 Hospital Encounter Jeremias [facility] 1.2.840.114 350.1.13.10 4.2.7.2.686 [id number] [facility] 2022-03-30 10:47:59 2022-03-30 10:48:00 Hospital Encounter Jeremias [facility] 1.2.840.114 350.1.13.10 4.2.7.2.686 [id number] [facility] 2022-03-30 10:46:03 2022-03-30 10:46:03 [facility] [id number] [facility] 2022-03-30 10:46:03 2022-03-30 10:46:03 Hospital Encounter Jeremias [facility] 1.2.840.114 350.1.13.10 4.2.7.2.686 [id number] [facility] 2022-03-30 00:00:00 2022-03-30 00:00:00 Orders Only Doctor Unassigned, Bonesteel [facility] 1.2.840.114 350.1.13.10 4.2.7.2.686 [id number] [facility] 2022-03-29 08:36:31 2022-03-29 23:59:00 [facility] 1.2.840.114 350.1.13.10 4.2.7.2.686 [id number] [facility] 2022-03-23 13:00:00 2022-03-23 13:29:17 Outpatient R MACRINA PAIGE [facility] [id number] [facility] 2022-03-09 00:00:00 2022-03-09 00:00:00 OFFICE VISIT ESTAB PT LEVEL 4 STLMLC STLMLC [id number] [facility] 2022-03-07 11:00:00 2022-03-07 11:00:00 [facility] [id number] [facility] 2022-03-07 00:00:00 2022-03-07 00:00:00 Outpatient R ARGELIA MCDOWELL [facility] [id number] [facility] 2022-03-06 08:30:00 2022-03-06 08:53:33 Outpatient R NAOMY BRAVO [facility] [id number] [facility] 2022-03-06 08:30:00 2022-03-06 08:53:33 Outpatient R NAOMY BRAVO [facility] [id number] [facility] 2022-03-06 08:30:00 2022-03-06 08:53:33 Office Visit Naomy Bravo [facility] 1.2.840.114 350.1.13.10 4.2.7.2.686 [id number] [facility] 2022-03-06 08:30:00 2022-03-06 08:30:00 Outpatient R BRAVO, NAOMY [facility] [id number] [facility] 2022-02-28 00:00:00 2022-02-28 00:00:00 [facility] [id number] [facility] 2022-02-28 00:00:00 2022-02-28 00:00:00 [facility] [id number] [facility] 2022-02-27 00:00:00 2022-02-27 00:00:00 Telephone Naomy Bravo [facility] 1.2.840.114 350.1.13.10 4.2.7.2.686 [id number] [facility] 2022-02-14 00:00:00 2022-02-14 00:00:00 (TEL) STLMLC STLMLC [id number] [facility] 2022-01-26 00:00:00 2022-01-26 00:00:00 (TEL) STLMLC STLMLC [id number] [facility] 2022-01-21 00:00:00 2022-01-21 00:00:00 Patient Secure Msg Jeremias [facility] 1.840.114 350.1.13.10 4.2.7.2.686 [id number] [facility] 2022-01-20 08:00:00 2022-01-20 08:01:00 Outpatient R JEREMIAS [facility] [id number] [facility] 2022-01-20 08:00:00 2022-01-20 08:00:00 Outpatient R JEREMIAS [facility] [id number] [facility] 2021-12-27 08:40:00 2021-12-27 09:34:30 Outpatient R JEREMIAS [facility] [id number] [facility] 2021-12-27 08:40:00 2021-12-27 09:34:30 Office Visit Jeremias [facility] 1.840.114 350.1.13.10 4.2.7.2.686 [id number] [facility] 2021-12-27 00:00:00 2021-12-27 00:00:00 Orders Only Doctor Unassigned, Bonesteel [facility] 1.840.114 350.1.13.10 4.2.7.2.686 [id number] [facility] 2021-12-26 00:00:00 2021-12-26 00:00:00 (TEL) STLMLC STLMLC [id number] [facility] 2021-12-26 00:00:00 2021-12-26 00:00:00 Telephone Naomy Bravo [facility] 1..840.114 350.1.13.10 4.2.7.2.686 [id number] [facility] 2021-11-09 00:00:00 2021-11-09 00:00:00 (TEL) STLMLC STLMLC [id number] [facility] 2021-11-09 00:00:00 2021-11-09 00:00:00 OFFICE VISIT ESTAB PT LEVEL 4 STLMLC STLMLC [id number] [facility] 2021-11-09 00:00:00 2021-11-09 00:00:00 SUB ANNUAL [facility] WELLNESS VISIT STLMLC STLMLC [id number] [facility] 2021-09-28 10:00:00 2021-09-28 10:00:00 Outpatient NAOMY GLEASON [facility] [id number] [facility] 2021-09-13 00:00:00 2021-09-13 00:00:00 Telephone Naomy Bravo [facility] 1.2.840.114 350.1.13.10 4.2.7.2.686 [id number] [facility] 2021-09-13 00:00:00 2021-09-13 00:00:00 Orders Only Doctor Unassigned, Bonesteel [facility] 1.2.840.114 350.1.13.10 4.2.7.2.686 [id number] [facility] 2021-08-01 00:00:00 2021-08-01 00:00:00 (TEL) STLMLC STLMLC [id number] [facility] 2021-07-27 00:00:00 2021-07-27 00:00:00 OFFICE VISIT ESTAB PT LEVEL 4 STLMLC STLMLC [id number] [facility] 2021-07-20 10:00:00 2021-07-20 10:00:00 Outpatient NAOMY GLEASON [facility] [id number] [facility] 2021-07-05 00:00:00 2021-07-05 00:00:00 Transition of Care Marly Hanley 1.2840.114 350.1.13.10 4.2.7.2.686 [id number] [facility] 2021-07-03 17:13:00 2021-07-04 15:09:00 Outpatient X FRANDY WALTER [facility] [id number] [facility] 2021-07-03 17:13:00 2021-07-04 15:09:00 Emergency Nicolas Franco [place] [facility] 1.2840.114 350.1.13.10 4.2.7.2.686 [id number] [facility] 2021-03-31 09:45:34 2021-03-31 10:32:15 Office Visit Naomy Bravo [facility] 1.2840.114 350.1.13.10 4.2.7.2.686 [id number] [facility] 2021-03-31 10:00:00 2021-03-31 10:00:00 Outpatient R NAOMY BRAVO [facility] [id number] [facility] 2021-03-24 00:00:00 2021-03-24 00:00:00 OFFICE VISIT ESTAB PT LEVEL 4 STLMLC STLMLC [id number] [facility] 2021-01-03 10:00:00 2021-01-03 10:00:00 Outpatient R [facility] [id number] [facility] 2020-12-28 20:21:00 2020-12-28 23:40:00 Emergency Yanely Cannon [facility] 1.2840.114 350.1.13.10 4.2.7.2.686 [id number] [facility] 2020-12-27 00:00:00 2020-12-27 00:00:00 Outpatient STLMLC STLMLC [id number] [facility] 2020-12-16 00:00:00 2020-12-16 00:00:00 Outpatient STLMLC STLMLC [id number] [facility] 2020-12-13 10:20:00 2020-12-13 10:26:15 Outpatient RAE LARSON [facility] [id number] [facility] 2020-12-09 00:00:00 2020-12-09 00:00:00 Outpatient STLMLC STLMLC [id number] [facility] 2020-12-03 00:00:00 2020-12-03 00:00:00 Outpatient STLMLC STLMLC [id number] [facility] 2020-11-24 00:00:00 2020-11-24 00:00:00 Outpatient STLMLC STLMLC [id number] [facility] 2020-11-24 00:00:00 2020-11-24 00:00:00 Outpatient STLMLC STLMLC [id number] [facility] 2020-11-20 11:45:00 2020-11-20 12:11:11 Outpatient RAE LARSON [facility] [id number] [facility] 2020-09-23 11:12:49 2020-09-23 11:58:33 Office Visit Naomy Bravo [facility] 1.2.840.114 350.1.13.10 4.2.7.2.686 [id number] [facility] 2020-09-23 11:30:00 2020-09-23 11:30:00 Outpatient NAOMY GLEASON [facility] [id number] [facility] 2020-08-03 11:25:00 2020-08-03 14:25:00 Emergency Alexsander Falcon [facility] 1.2.840.114 350.1.13.10 4.2.7.2.686 [id number] [facility] 2020-08-03 11:25:00 2020-08-03 14:25:00 Emergency X ALEXSANDER FALCON [facility] E[facility] [id number] [facility] 2020-07-06 09:14:07 2020-07-06 10:40:28 Office Visit Emilia Ortiz [facility] 1.2.840.114 350.1.13.10 4.2.7.2.686 [id number] [facility] 2020-07-06 09:15:00 2020-07-06 09:15:00 Outpatient R BIBIANAROLANDEMILIA [facility] [id number] [facility] 2020-06-29 00:00:00 2020-06-29 00:00:00 Outpatient STLMLC STLMLC [id number] [facility] 2020-03-25 11:26:28 2020-05-23 00:15:09 Office Visit Naomy Bravo [facility] 1.2.840.114 350.1.13.10 4.2.7.2.686 [id number] [facility] 2020-05-21 09:30:00 2020-05-21 09:30:00 Outpatient R [facility] [id number] [facility] 2020-05-21 00:00:00 2020-05-21 00:00:00 Orders Only Doctor Unassigned, Bonesteel [facility] 1..840.114 350.1.13.10 4.2.7.2.686 [id number] [facility] 2020-05-18 11:20:00 2020-05-18 11:20:00 Outpatient YEYO LOCKHART HOWARD [facility] [id number] [facility] 2020-05-14 10:00:00 2020-05-14 10:00:00 [facility] [id number] 2020-05-11 00:00:00 2020-05-11 00:00:00 Telephone Naomy Bravo [facility] 1.2.840.114 350.1.13.10 4.2.7.2.686 [id number] [facility] 2020-03-30 00:00:00 2020-03-30 00:00:00 Orders Only Doctor Unassigned, Bonesteel [facility] 1.2.840.114 350.1.13.10 4.2.7.2.686 [id number] [facility] 2020-03-25 11:30:00 2020-03-25 11:30:00 Outpatient NAOMY GLEASON [facility] [id number] [facility] 2020-03-03 10:45:00 2020-03-03 10:45:[address] [facility] [id number] [facility] 2020-01-22 09:30:00 2020-01-22 09:30:00 Outpatient NAOMY GLEASON [facility] [id number] [facility] 2019-12-04 00:00:00 2019-12-04 00:00:00 Telephone Naomy Bravo [facility] 1.2.840.114 350.1.13.10 4.2.7.2.686 [id number] [facility] 2019-12-03 11:15:00 2019-12-03 11:15:[address] [facility] [id number] [facility] 2019-06-23 07:57:28 2019-12-02 19:39:27 [employer] Student Coordinator Visit Tech, Adc Cardio Fac 2, Adc Cardio Fac Room Jeremias, [facility] 1.2.840.114 350.1.13.10 4.2.7.2.686 [id number] [facility] 2019-12-02 15:41:56 2019-12-02 16:28:44 Foreign Exchange Student Coordinator Visit Pc, [facility] 1.2.840.114 350.1.13.10 4.2.7.2.686 [id number] [facility] 2019-12-02 16:00:00 2019-12-02 16:00:00 Outpatient R [facility] [id number] [facility] 2019-09-11 07:52:01 2019-10-17 00:36:19 Office Visit Jeremias [facility] 1.2.840.114 350.1.13.10 4.2.7.2.686 [id number] [facility] 2019-10-17 00:00:00 2019-10-17 00:00:00 Telephone Naomy Bravo [facility] 1.2.840.114 350.1.13.10 4.2.7.2.686 [id number] [facility] 2019-09-10 09:40:00 2019-09-11 07:52:23 [facility] [id number] [facility] 2019-09-10 00:00:00 2019-09-10 00:00:00 Orders Only Doctor Unassigned, Bonesteel [facility] 1.2.840.114 350.1.13.10 4.2.7.2.686 [id number] [facility] 2019-09-05 00:00:00 2019-09-05 00:00:00 Telephone Naomy Bravo [facility] 1.2.840.114 350.1.13.10 4.2.7.2.686 [id number] [facility] 2019-09-04 09:00:00 2019-09-04 09:00:00 [facility] [id number] [facility] 2019-08-28 09:35:40 2019-08-29 15:54:44 Office Visit Naomy Bravo [facility] 1.2.840.114 350.1.13.10 4.2.7.2.686 [id number] [facility] 2019-08-29 00:00:00 2019-08-29 00:00:00 Telephone Naomy Bravo [facility] 1.2.840.114 350.1.13.10 4.2.7.2.686 [id number] [facility] 2019-08-28 00:00:00 2019-08-28 00:00:00 Orders Only Doctor Unassigned, Bonesteel [facility] 1.2.840.114 350.1.13.10 4.2.7.2.686 [id number] [facility] 2019-05-29 14:38:00 2019-05-29 14:38:00 [facility] [id number] [facility] 2019-05-29 11:30:00 2019-05-29 11:30:00 [facility] [id number] [facility] 2019-02-19 08:15:00 2019-02-19 08:15:[address] [facility] [id number] [facility] 2019-02-03 16:15:00 2019-02-03 16:15:[address] [facility] [id number] [facility] 2019-01-09 08:15:00 2019-01-09 08:15:[address] [place] [facility] [id number] [facility] 2018-11-05 10:00:00 2018-11-05 10:00:00 [place] [facility] [id number] [facility] 2018-08-26 08:43:00 2018-08-26 08:43:00 [place] [id number] [facility] 2018-08-08 10:15:00 2018-08-08 10:15:00 [place] [facility] [id number] [facility] 2018-05-08 10:00:00 2018-05-08 10:00:00 [facility] [id number] [facility] 2018-02-14 13:45:00 2018-02-14 13:45:00 [facility] [id number] [facility] 2018-02-14 13:45:00 2018-02-14 13:45:00 [facility] [id number] [facility] 2018-02-12 16:00:00 2018-02-12 16:00:00 [facility] [id number] [facility] 2018-02-12 15:28:00 2018-02-12 15:28:00 [facility] [id number] [facility] 2018-02-06 09:30:00 2018-02-06 09:30:00 [facility] [id number] [facility] 2018-01-28 14:50:00 2018-01-28 14:50:00 [facility] [facility] [id number] [facility] 2018-01-15 09:45:00 2018-01-15 09:45:00 [facility] [facility] [id number] [facility] 2018-01-02 09:30:00 2018-01-02 09:30:00 [facility] [facility] [id number] [facility] 2017-12-31 10:00:00 2017-12-31 10:00:[address] [facility] [id number] [facility] 2017-10-29 10:00:00 2017-10-29 10:00:[address] [facility] [id number] [facility] Results Test Description Test Time Test Comments Results Result Co mments Source [facility] [id number] 16:44:08* Test Item Value Reference Range Interpretation Comme nts TROPONIN I (test code = 1876519230) 0.004 ng/mL <=0.034 ALDO (test code = ALDO) Reference (Normal) [...] to patient's use of biotin. Lab Interpretation (test code = 73832-3) Normal [facility] [id number] 16:41:47* Test Item Value Reference Range Interpretation Comme nts NT-proBNP (test code = 58925-9) 394 pg/mL <=125 ALDO (test code = ALDO) Result Indeterminate-Consid er causes of NT-proBNP elevation other than Heart failure such as acute coronary syndrome, pulmonary embolism, pulmonary hypertension, sepsis, stroke, and renal dysfunction. Lab Interpretation (test code = 44284-5) Abnormal [facility] HospitalMagnesium2024-10-19 16:32:49* Test Item Value Reference Range Interpretation Comme nts MAGNESIUM (test code = 7259871286) 2.1 mg/dL 1.7-2.4 Lab Interpretation (test cod e = 64683-2) Normal [facility] HospitalCOMP. METABOLIC PANEL (65709)2024-05-10 16:32:29* Test Item Value Reference Range Interpretation Comme nts NA (test code = 8581865614) 137 mmol/L 135-145 K (test code = 1034748770) 4.5 mmol/L 3.5-5.0 CL (test code = 7941223504) 107 mmol/L 98-108 CO2 TOTAL (test code = 2595517323) 19 mmol/L 23-31 L AGAP (test code = 9802924397) 11 2-16 BUN (test code = 3033810723) 31 mg/dL 7-23 H GLUCOSE (test code = 1771188987) 186 mg/dL 70-110 H CREATININE (test code = 2160-0) 1.08 mg/dL 0.50-1.04 H TOTAL BILI (test code = 0553252452) 1.2 mg/dL 0.1-1.1 H CALCIUM (test code = 9564567732) 9.2 mg/dL 8.6-10.6 T PROTEIN (test code = 8520621009) 7.2 g/dL 6.3-8.2 ALBUMIN (test code = 4101923622) 4.3 g/dL 3.5-5.0 ALK PHOS (test code = 5556520488) 85 U/L 34-122 ALTv (test code = 1742-6) 19 U/L 5-35 AST(SGOT) (test code = 4205211029) 24 U/L 13-40 eGFR (test code = 82772-8) 51.7 mL/min/1.73m2 CKD-EPI eGFR (2020). Assuming creatinine has been stable day-to-day for at least three months, the eGFR indicates Category G3a (45 - 59 mL/min/1.73 m2) Lab Interpretation (test code = 55205-5) Abnormal [facility] WITH [id number] 16:17:31* Test Item Value Reference Range Interpretation Comme nts WBC (test code = 6690-2) 6.67 4.30-11.10 RBC (test code = 789-8) 4.10 3.93-5.25 HGB (test code = 718-7) 12.5 g/dL 11.6-15.0 HCT (test code = 4544-3) 39.1 % 35.7-45.2 MCV (test code = 787-2) 95.4 fL 80.6-95.5 MCH (test code = 785-6) 30.5 pg 25.9-32.8 MCHC (test code = 786-4) 32.0 g/dL 31.6-35.1 RDW-SD (test code = 20772-0) 49.2 fL 39.0-49.9 RDW-CV (test code = 788-0) 14.0 % 12.0-15.5 PLT (test code = 777-3) 224 166-358 MPV (test code = 13840-2) 9.8 fL 9.5-12.9 NRBC/100 WBC (test code = 7110051493) 0.0 0.0-10.0 NRBC x10^3 (test code = 3694978977) See_Comment [Automated messa ge] The system which generated this result transmitted reference range: 10*3/?L. The reference range was not used to interpret this result as normal/abnormal. GRAN MAT (NEUT) % (test code = 770-8) 66.0 % IMM GRAN % (test code = 9071433526) 0.30 % LYMPH % (test code = 736-9) 23.1 % MONO % (test code = 5905-5) 7.8 % EOS % (test code = 713-8) 1.5 % BASO % (test code = 706-2) 1.3 % GRAN MAT x10^3(ANC) (test code = 3777196848) 4.40 10*3/uL 1.88-7.09 IMM GRAN x10^3 (test code = 0574281494) 0.00-0.06 LYMPH x10^3 (test code = 731-0) 1.54 10*3/uL 1.32-3.29 MONO x10^3 (test code = 742-7) 0.52 10*3/uL 0.33-0.92 EOS x10^3 (test code = 711-2) 0.10 10*3/uL 0.03-0.39 BASO x10^3 (test code = 704-7) 0.09 10*3/uL 0.01-0.07 H Lab Interpretation (test code = 77245-6) Abnormal [facility] HospitalHEMOGLOBIN [id number] 00:00:00* Test Item Value Reference Range Interpretation Comme [facility] HEMOGLOBIN A1c (test code = 4548-4) 7.3 % See_Comment H [Automated [employer]] The system which generated this result transmitted reference range: 4.2-5.6 %. The reference range was not used to interpret this result as normal/abnormal. [place] TIME OR (NON-REPORTABLE)2023-12-28 17:07:41These images do not require a Radiology diagnostic report.[facility] Hospital[facility] (NON-REPORTABLE)2023-12-28 17:07:41These images do not require a Radiology diagnostic report.[facility] GLUCOSE (AUTOMATED) 2023-12-28 13:04:41* Test Item Value Reference Range Interpretation Comme nts POCT GLU (test code = 4758279602) 135 mg/dL 70-110 H Lab Interpretation (test cod e = 16889-5) Abnormal [facility] GLUCOSE (AUTOMATED)2023-12-28 13:04:41* Test Item Value Reference Range Interpretation Comme nts POCT GLU (test code = 3275658674) 135 mg/dL 70-110 H Lab Interpretation (test cod e = 27979-4) Abnormal [facility] HospitalN-Terminal Ork-[id number] 20:22:02* Test Item Value Reference Range Interpretation Comme nts NT-proBNP (test code = 37687-1) 557 pg/mL <=125 ALDO (test code = ALDO) Result Indeterminate-Consid er causes of NT-proBNP elevation other than Heart failure such as acute coronary syndrome, pulmonary embolism, pulmonary hypertension, sepsis, stroke, and renal dysfunction. Lab Interpretation (test code = 74247-7) Abnormal [facility] HospitalMagnesium2024-04-19 20:13:19* Test Item Value Reference Range Interpretation Comme nts MAGNESIUM (test code = 6846259773) 2.1 mg/dL 1.7-2.4 Lab Interpretation (test cod e = 89679-3) Normal [facility] (NA, K, CL, CO2, GLUCOSE, BUN, CREATININE, CA)2023-11-09 20:12:59* Test Item Value Reference Range Interpretation Comme nts NA (test code = 3876997594) 137 mmol/L 135-145 K (test code = 8707234624) 4.8 mmol/L 3.5-5.0 CL (test code = 9155104330) 103 mmol/L 98-108 CO2 TOTAL (test code = 1341039700) 24 mmol/L 23-31 AGAP (test code = 3013597036) 10 2-16 BUN (test code = 7724612617) 27 mg/dL 7-23 H GLUCOSE (test code = 5734388463) 171 mg/dL 70-110 H CREATININE (test code = 2160-0) 1.20 mg/dL 0.50-1.04 H CALCIUM (test code = 1151682576) 8.6 mg/dL 8.6-10.6 eGFR (test code = 10923-8) 45.9 mL/min/1.73m2 CKD-EPI eGFR (2020). Assuming creatinine has been stable day-to-day for at least three months, the eGFR indicates Category G3a (45 - 59 mL/min/1.73 m2) Lab Interpretation (test code = 48984-5) Abnormal [facility] HospitalElectrophysiology asqddqykz4722-63-23 01:19:02 Dual Chamber Pacemaker Implantation, ILR RemovalProcedure: Dual-chamber Pacemaker Implantation, ILRRemoval Indication: Symptomatic Bradycardia Secondary to Sick Sinus Syndrome Technique: After obtaining informed consent and administrating preoperative antibiotics, the patient was prepped and draped in the usual sterile fashion. Venogram confirmed patency of left subclavian vein. Sedation was initiated under anesthesia team guidance. Local anesthesia was administered in the in the infraclavicular area. An incision was made over the deltopectoral groove. Vascular access was obtained via the subclavian vein. Leads were introduced into circulation and advanced into the heart under fluoroscopicguidance. RA and RV leads were positioned and tested. Pacing and sensing thresholds, lead impedances and absence of extracardiac stimulation were confirmed. All leads were secured to the surrounding tissue with non-absorbable sutures. A pocket was created to accommodate the pulse generator in the soft tissue just above the fascia of the pectoralis muscle. All leads were connected to the appropriate ports in the pulse generator. The wound was irrigated with a large amount of antibiotic solution.Adequate hemostasis was confirmed. The pulse generator was placed into the pocket. Excess leads were coiled behind the device. Wound was closed with two layers of absorbable sutures. Dermabond glue was then applied. Postoperative interrogation confirmed adequate pacemaker function. Local anesthesiawas then administered at the site of the previously implanted ILR just medial to the left side of the sternum. Using a blade a small incision was made. The ILR was removed using blunt dissection and e lectrocautery. Wound was closed with 4-0 vicryl suture and Dermabond glue. Excellent hemostasis wasachieved. CXR requested.The patient tolerated the procedure well and there were no acute complications. Device Characteristics:Pulse generator: [employer] Model L311 RA Lead: [employer]Model 7841, P waves 3.9 mV, Impedance 549 ohms, Threshold 0.6 V@0.4msecRV Lead: [employer] Model 7842, R waves 9.1 mV, Impedance 637 ohms, Threshold 0.5 V@0.4msec MRI Compatible Final Programming: DDDR 60- 130Impression: Successful implantation of dual chamber pacemaker. Successful ILR removal. Plan:CXR now to assess lead placement and rule out pneumothorax. Sling to L arm x 12 hours. Please remove prior to discharge. Pressure dressing in place. Please remove prior to discharge. Device interrogation tomorrow AM. No heparin 24 hours. Follow up in device clinic in 2 weeks for wound check.Follow up in EP clinic in 6 to 8 weeks. Robert Sykes, MDCardiac Electrophysiology [facility] HospitalCardiovascular Fnccmitwqubsoqf7908-15-11 01:19:02Dual Chamber Pacemaker Implantation, ILR RemovalProcedure: Dual-chamber Pacemaker Implantation, ILRRemoval Indication: Symptomatic Bradycardia Secondary to Sick Sinus Syndrome Technique: After obtaining informed consent and administrating preoperative antibiotics, the patient was prepped and draped in the usual sterile fashion. Venogram confirmed patency of left subclavian vein. Sedation was initiated under anesthesia team guidance. Local anesthesia was administered in the in the infraclavicular area. An incision was made over the deltopectoral groove. Vascular access was obtained via the subclavian vein. Leads were introduced into circulation and advanced into the heart under fluoroscopicguidance. RA and RV leads were positioned and tested. Pacing and sensing thresholds, lead impedances and absence of extracardiac stimulation were confirmed. All leads were secured to the surrounding tissue with non-absorbable sutures. A pocket was created to accommodate the pulse generator in the soft tissue just above the fascia of the pectoralis muscle. All leads were connected to the appropriate ports in the pulse generator. The wound was irrigated with a large amount of antibiotic solution.Adequate hemostasis was confirmed. The pulse generator was placed into the pocket. Excess leads were coiled behind the device. Wound was closed with two layers of absorbable sutures. Dermabond glue was then applied. Postoperative interrogation confirmed adequate pacemaker function. Local anesthesiawas then administered at the site of the previously implanted ILR just medial to the left side of the sternum. Using a blade a small incision was made. The ILR was removed using blunt dissection and e lectrocautery. Wound was closed with 4-0 vicryl suture and Dermabond glue. Excellent hemostasis wasachieved. CXR requested.The patient tolerated the procedure well and there were no acute complications. Device Characteristics:Pulse generator: [employer] Model L311 RA Lead: [employer]Model 7841, P waves 3.9 mV, Impedance 549 ohms, Threshold 0.6 V@0.4msecRV Lead: [employer] Model 7842, R waves 9.1 mV, Impedance 637 ohms, Threshold 0.5 V@0.4msec MRI Compatible Final Programming: DDDR 60- 130Impression: Successful implantation of dual chamber pacemaker. Successful ILR removal. Plan:CXR now to assess lead placement and rule out pneumothorax. Sling to L arm x 12 hours. Please remove prior to discharge. Pressure dressing in place. Please remove prior to discharge. Device interrogation tomorrow AM. No heparin 24 hours. Follow up in device clinic in 2 weeks for wound check.Follow up in EP clinic in 6 to 8 weeks. Robert Sykes, [facility] Electrophys[facility] WITH [id number] 15:06:17* Test Item Value Reference Range Interpretation Comme nts WBC (test code = 6690-2) 6.37 4.30-11.10 RBC (test code = 789-8) 4.13 3.93-5.25 HGB (test code = 718-7) 12.5 g/dL 11.6-15.0 HCT (test code = 4544-3) 38.8 % 35.7-45.2 MCV (test code = 787-2) 93.9 fL 80.6-95.5 MCH (test code = 785-6) 30.3 pg 25.9-32.8 MCHC (test code = 786-4) 32.2 g/dL 31.6-35.1 RDW-SD (test code = 79687-3) 47.5 fL 39.0-49.9 RDW-CV (test code = 788-0) 13.8 % 12.0-15.5 PLT (test code = 777-3) 210 166-358 MPV (test code = 17990-2) 9.6 fL 9.5-12.9 NRBC/100 WBC (test code = 4282871158) 0.0 0.0-10.0 NRBC x10^3 (test code = 6805577603) See_Comment [Automated [employer]] The system which generated this result transmitted reference range: 10*3/?L. The reference range was not used to interpret this result as normal/abnormal. GRAN MAT (NEUT) % (test code = 770-8) 68.1 % IMM GRAN % (test code = 2169711895) 0.30 % LYMPH % (test code = 736-9) 19.9 % MONO % (test code = 5905-5) 8.0 % EOS % (test code = 713-8) 2.8 % BASO % (test code = 706-2) 0.9 % GRAN MAT x10^3(ANC) (test code = 5953503856) 4.33 10*3/uL 1.88-7.09 IMM GRAN x10^3 (test code = 6730034551) 0.00-0.06 LYMPH x10^3 (test code = 731-0) 1.27 10*3/uL 1.32-3.29 L MONO x10^3 (test code = 742-7) 0.51 10*3/uL 0.33-0.92 EOS x10^3 (test code = 711-2) 0.18 10*3/uL 0.03-0.39 BASO x10^3 (test code = 704-7) 0.06 10*3/uL 0.01-0.07 Lab Interpretation (test code = 55590-4) Abnormal [facility] GLUCOSE (AUTOMATED)2023-05-19 15:19:17* Test Item Value Reference Range Interpretation Comme nts POCT GLU (test code = 1411579813) 123 mg/dL 70-110 H Lab Interpretation (test cod e = 28462-4) Abnormal [facility] GLUCOSE (AUTOMATED)2023-05-19 03:01:53* Test Item Value Reference Range Interpretation Comme nts POCT GLU (test code = 4223226141) 162 mg/dL 70-110 H Lab Interpretation (test cod e = 13060-2) Abnormal [facility] GLUCOSE (AUTOMATED)2023-05-18 21:46:59* Test Item Value Reference Range Interpretation Comme nts POCT GLU (test code = 2341942143) 155 mg/dL 70-110 H Lab Interpretation (test cod e = 02126-5) [id number]:11:56* Test Item Value Reference Range Interpretation Comme nts TROPONIN I (test code = 7313781601) 0.000 ng/mL <=0.034 ALDO (test code = ALDO) Reference (Normal) [...] to patient's use of biotin. Lab Interpretation (test code = 36566-4) [id number] 17:09:33* Test Item Value Reference Range Interpretation Comme nts NT-proBNP (test code = 15069-2) 244 pg/mL <=125 ALDO (test code = ALDO) Result Indeterminate-Consid er causes of NT-proBNP elevation other than Heart failure such as acute coronary syndrome, pulmonary embolism, pulmonary hypertension, sepsis, stroke, and renal dysfunction. Lab Interpretation (test code = 08932-1) Abnormal [facility] METABOLIC PANEL (NA, K, CL, CO2, GLUCOSE, BUN, CREATININE, CA)2023-05-18 16:59:54* Test Item Value Reference Range Interpretation Comme nts NA (test code = 8993702965) 139 mmol/L 135-145 K (test code = 8827822386) 5.0 mmol/L 3.5-5.0 CL (test code = 6648635147) 107 mmol/L 98-108 CO2 TOTAL (test code = 7835427823) 18 mmol/L 23-31 L AGAP (test code = 0588799982) 14 2-16 BUN (test code = 4090847112) 31 mg/dL 7-23 H GLUCOSE (test code = 3738731437) 171 mg/dL 70-110 H CREATININE (test code = 6895218910) 1.00 mg/dL 0.50-1.04 CALCIUM (test code = 7096596050) 8.9 mg/dL 8.6-10.6 eGFR (test code = 3051837130) 53.3 mL/min/1.73m2 ALDO (test code = ALDO) Association of [...] or abnormalities in imaging tests). Lab Interpretation (test code = 06321-5) Abnormal [facility] WITH [id number] 16:36:49* Test Item Value Reference Range Interpretation Comme nts WBC (test code = 6690-2) 7.21 See_Comment [Automated [employer]] The system which generated this result transmitted reference range: 4.30 - 11.10 10*3/?L. The reference range was not used to interpret this result as normal/abnormal. RBC (test code = 789-8) 3.39 See_Comment L [Automated [employer]] The system which generated this result transmitted reference range: 3.93 - 5.25 10*6/?L. The reference range was not used to interpret this result as normal/abnormal. HGB (test code = 718-7) 10.3 g/dL 11.6-15.0 L HCT (test code = 4544-3) 31.5 % 35.7-45.2 L MCV (test code = 787-2) 92.9 fL 80.6-95.5 MCH (test code = 785-6) 30.4 pg 25.9-32.8 MCHC (test code = 786-4) 32.7 g/dL 31.6-35.1 RDW-SD (test code = 13062-8) 47.6 fL 39.0-49.9 RDW-CV (test code = 788-0) 14.0 % 12.0-15.5 PLT (test code = 777-3) 216 See_Comment [Automated [employer]] The system which generated this result transmitted reference range: 166 - 358 10*3/?L. The reference range was not used to interpret this result as normal/abnormal. MPV (test code = 88869-3) 9.8 fL 9.5-12.9 NRBC/100 WBC (test code = 3068386394) 0.0 See_Comment [Automated [employer]] The system which generated this result transmitted reference range: 0.0 - 10.0 /100 WBCs. The reference range was not used to interpret this result as normal/abnormal. NRBC x10^3 (test code = 0717090832) See_Comment [Automated [employer]] The system which generated this result transmitted reference range: 10*3/?L. The reference range was not used to interpret this result as normal/abnormal. GRAN MAT (NEUT) % (test code = 770-8) 68.9 % IMM GRAN % (test code = 4568116396) 0.30 % LYMPH % (test code = 736-9) 21.6 % MONO % (test code = 5905-5) 7.2 % EOS % (test code = 713-8) 1.2 % BASO % (test code = 706-2) 0.8 % GRAN MAT x10^3(ANC) (test code = 6902715820) 4.96 10*3/uL 1.88-7.09 IMM GRAN x10^3 (test code = 2649815940) 0.00-0.06 LYMPH x10^3 (test code = 731-0) 1.56 10*3/uL 1.32-3.29 MONO x10^3 (test code = 742-7) 0.52 10*3/uL 0.33-0.92 EOS x10^3 (test code = 711-2) 0.09 10*3/uL 0.03-0.39 BASO x10^3 (test code = 704-7) 0.06 10*3/uL 0.01-0.07 Lab Interpretation (test code = 44812-7) [facility] [id number] 00:00:00* Test Item Value Reference Range Interpretation Comme [facility] HEMOGLOBIN A1c (test code = 4548-4) 6.7 % See_Comment H [Automated messa ge] The system which generated this result transmitted reference range: 4.2-5.6 %. The reference range was not used to interpret this result as normal/abnormal. POCT GLUCOSE (AUTOMATED)2023-04-10 22:02:48* Test Item Value Reference Range Interpretation Comme [facility] POCT GLU (test code = 8833374431) 121 mg/dL 70-110 H Lab Interpretation (test cod e = 21867-4) [facility]10 19:50:47* Test Item Value Reference Range Interpretation Comme [facility] APTT Patient (test code = 3173-2) 50 See_Comment H [Automated messa ge] The system which generated this result transmitted reference range: 26 - 36 Seconds. The reference range was not used to interpret this result as normal/abnormal. Lab Interpretation (test code = 94501-8) Abnormal [facility] GLUCOSE (AUTOMATED)2023-04-10 19:17:26* Test Item Value Reference Range Interpretation Comme [facility] POCT GLU (test code = 1453169882) 153 mg/dL 70-110 H Lab Interpretation (test cod e = 44959-6) Abnormal [facility] GLUCOSE (AUTOMATED)2023-04-10 15:33:46* Test Item Value Reference Range Interpretation Comme [facility] POCT GLU (test code = 1064768807) 247 mg/dL 70-110 H Lab Interpretation (test cod e = 64147-5) Abnormal [facility] GLUCOSE (AUTOMATED)2023-04-10 12:47:59* Test Item Value Reference Range Interpretation Comme [facility] POCT GLU (test code = 9544101035) 173 mg/dL 70-110 H Lab Interpretation (test cod e = 77555-2) Abnormal [facility] ACT LOW [id number] 13:41:50* Test Item Value Reference Range Interpretation Comme nts ACTLR (test code = 9424619563) 339 See_Comment H [Automated messa ge] The system which generated this result transmitted reference range: 89 - 169 Seconds. The reference range was not used to interpret this result as normal/abnormal. Lab Interpretation (test code = 58520-2) Abnormal [facility] ACT LOW [id number] 13:41:50* Test Item Value Reference Range Interpretation Comme nts ACTLR (test code = 6195951623) 284 See_Comment H [Automated messa ge] The system which generated this result transmitted reference range: 89 - 169 Seconds. The reference range was not used to interpret this result as normal/abnormal. Lab Interpretation (test code = 88559-7) Abnormal [facility] GLUCOSE (AUTOMATED)2023-04-07 17:19:13* Test Item Value Reference Range Interpretation Comme nts POCT GLU (test code = 0540263811) 341 mg/dL 70-110 H Lab Interpretation (test cod e = 29481-5) Abnormal [facility] GLUCOSE (AUTOMATED)2023-04-07 17:19:13* Test Item Value Reference Range Interpretation Comme nts POCT GLU (test code = 0325058186) 341 mg/dL 70-110 H Lab Interpretation (test cod e = 11866-1) Abnormal [facility] GLUCOSE (AUTOMATED)2023-04-07 13:54:40* Test Item Value Reference Range Interpretation Comme nts POCT GLU (test code = 0470084860) 131 mg/dL 70-110 H Lab Interpretation (test cod e = 63415-5) Abnormal [facility] GLUCOSE (AUTOMATED)2023-04-07 13:54:40* Test Item Value Reference Range Interpretation Comme nts POCT GLU (test code = 3235037596) 131 mg/dL 70-110 H Lab Interpretation (test cod e = 08674-0) Abnormal [facility] GLUCOSE (AUTOMATED)2023-04-07 03:43:01* Test Item Value Reference Range Interpretation Comme nts POCT GLU (test code = 9237488962) 207 mg/dL 70-110 H Lab Interpretation (test cod e = 59652-2) Abnormal [facility] GLUCOSE (AUTOMATED)2023-04-07 03:43:01* Test Item Value Reference Range Interpretation Comme nts POCT GLU (test code = 2487725881) 207 mg/dL 70-110 H Lab Interpretation (test cod e = 00889-4) Abnormal [facility] GLUCOSE (AUTOMATED)2023-04-06 21:00:15* Test Item Value Reference Range Interpretation Comme nts POCT GLU (test code = 8321375539) 137 mg/dL 70-110 H Lab Interpretation (test cod e = 45170-8) Abnormal [facility] GLUCOSE (AUTOMATED)2023-04-06 21:00:15* Test Item Value Reference Range Interpretation Comme nts POCT GLU (test code = 2603598728) 137 mg/dL 70-110 H Lab Interpretation (test cod e = 43764-8) [facility] [id number] 07:17:35* Test Item Value Reference Range Interpretation Comme nts TROPONIN I (test code = 4820884033) 0.006 ng/mL <=0.034 ALDO (test code = ALDO) Reference (Normal) [...] to patient's use of biotin. Lab Interpretation (test code = 61549-9) Normal [facility]. METABOLIC PANEL (76366)2023-03-06 05:08:40* Test Item Value Reference Range Interpretation Comme nts NA (test code = 8699316199) 141 mmol/L 135-145 K (test code = 4693295019) 4.0 mmol/L 3.5-5.0 CL (test code = 6549004019) 105 mmol/L 98-108 CO2 TOTAL (test code = 4276265619) 26 mmol/L 23-31 AGAP (test code = 1879174761) 10 2-16 BUN (test code = 4296388839) 27 mg/dL 7-23 H GLUCOSE (test code = 4820990175) 163 mg/dL 70-110 H CREATININE (test code = 6586878177) 0.99 mg/dL 0.50-1.04 TOTAL BILI (test code = 2896439468) 1.0 mg/dL 0.1-1.1 CALCIUM (test code = 5441126494) 9.4 mg/dL 8.6-10.6 T PROTEIN (test code = 0204248858) 7.2 g/dL 6.3-8.2 ALBUMIN (test code = 4186970668) 4.2 g/dL 3.5-5.0 ALK PHOS (test code = 4877242620) 100 U/L 34-122 ALTv (test code = 1742-6) 18 U/L 5-35 AST(SGOT) (test code = 2176365940) 26 U/L 13-40 eGFR (test code = 8515158077) 54.0 mL/min/1.73m2 ALDO (test code = ALDO) Association of [...] or abnormalities in imaging tests). Lab Interpretation (test code = 48491-2) [facility] [id number] 04:57:57* Test Item Value Reference Range Interpretation Comme [facility] TROPONIN I (test code = 4479668472) 0.004 ng/mL <=0.034 ALDO (test code = ALDO) Reference (Normal) [...] to patient's use of biotin. Lab Interpretation (test code = 96085-4) [facility] [id number] 04:55:15* Test Item Value Reference Range Interpretation Comme [facility] NT-proBNP (test code = 79005-0) 368 pg/mL <=125 ALDO (test code = ALDO) Result Indeterminate-Consid er causes of NT-proBNP elevation other than Heart failure such as acute coronary syndrome, pulmonary embolism, pulmonary hypertension, sepsis, stroke, and renal dysfunction. Lab Interpretation (test code = 56612-8) [facility] / [id number] 04:40:36* Test Item Value Reference Range Interpretation Comme [facility] PROTIME PATIENT (test code = 5964-2) 13.1 See_Comment [Automated [employer]] The system which generated this result transmitted reference range: 12.0 - 14.7 Seconds. The reference range was not used to interpret this result as normal/abnormal. INR (test code = 6301-6) 1.0 Normal INR <1.1; Warfarin Therapeutic range 2.0 to 3.0 or 2.5 to 3.5, depending upon the indications. Lab Interpretation (test code = 46391-8) Normal [facility] WITH [id number] 04:32:55* Test Item Value Reference Range Interpretation Comme nts WBC (test code = 6690-2) 5.49 See_Comment [Automated messa ge] The system which generated this result transmitted reference range: 4.30 - 11.10 10*3/?L. The reference range was not used to interpret this result as normal/abnormal. RBC (test code = 789-8) 3.79 See_Comment L [Automated messa ge] The system which generated this result transmitted reference range: 3.93 - 5.25 10*6/?L. The reference range was not used to interpret this result as normal/abnormal. HGB (test code = 718-7) 11.5 g/dL 11.6-15.0 L HCT (test code = 4544-3) 35.2 % 35.7-45.2 L MCV (test code = 787-2) 92.9 fL 80.6-95.5 MCH (test code = 785-6) 30.3 pg 25.9-32.8 MCHC (test code = 786-4) 32.7 g/dL 31.6-35.1 RDW-SD (test code = 51155-2) 48.0 fL 39.0-49.9 RDW-CV (test code = 788-0) 14.3 % 12.0-15.5 PLT (test code = 777-3) 188 See_Comment [Automated messa ge] The system which generated this result transmitted reference range: 166 - 358 10*3/?L. The reference range was not used to interpret this result as normal/abnormal. MPV (test code = 12003-9) 9.9 fL 9.5-12.9 NRBC/100 WBC (test code = 9506773733) 0.0 See_Comment [Automated [employer]] The system which generated this result transmitted reference range: 0.0 - 10.0 /100 WBCs. The reference range was not used to interpret this result as normal/abnormal. NRBC x10^3 (test code = 1791708947) See_Comment [Automated messa ge] The system which generated this result transmitted reference range: 10*3/?L. The reference range was not used to interpret this result as normal/abnormal. GRAN MAT (NEUT) % (test code = 770-8) 53.8 % IMM GRAN % (test code = 0929540188) 0.20 % LYMPH % (test code = 736-9) 32.6 % MONO % (test code = 5905-5) 9.8 % EOS % (test code = 713-8) 2.9 % BASO % (test code = 706-2) 0.7 % GRAN MAT x10^3(ANC) (test code = 7709857957) 2.95 10*3/uL 1.88-7.09 IMM GRAN x10^3 (test code = 1420288551) 0.00-0.06 LYMPH x10^3 (test code = 731-0) 1.79 10*3/uL 1.32-3.29 MONO x10^3 (test code = 742-7) 0.54 10*3/uL 0.33-0.92 EOS x10^3 (test code = 711-2) 0.16 10*3/uL 0.03-0.39 BASO x10^3 (test code = 704-7) 0.04 10*3/uL 0.01-0.07 Lab Interpretation (test code = 18225-5) [facility] [id number] 00:00:00* Test Item Value Reference Range Interpretation Comme nts HEMOGLOBIN A1c (test code = 4548-4) 7.1 % See_Comment H [Automated messa ge] The system which generated this result transmitted reference range: 4.2-5.6 %. The reference range was not used to interpret this result as normal/abnormal. TROPONIN [id number] 02:56:03* Test Item Value Reference Range Interpretation Comments TROPONIN I (test code = 9273184530) 0.006 ng/mL See_Comment [Automated message] The system which generated this result transmitted reference range: <=0.034. The reference range was not used to interpret this result as normal/abnormal. ALDO (test code = ALDO) Reference (Normal) [...] to patient's use of biotin. Lab Interpretation (test code = 65389-3) Normal [facility]. METABOLIC PANEL (66160)2022-08-20 02:38:00* Test Item Value Reference Range Interpretation Comme nts NA (test code = 2792555584) 139 mmol/L 135-145 K (test code = 9872098636) 4.5 mmol/L 3.5-5.0 CL (test code = 4787411178) 102 mmol/L 98-108 CO2 TOTAL (test code = 6990272278) 26 mmol/L 23-31 AGAP (test code = 6201195781) 2-16 BUN (test code = 0921782509) 17 mg/dL 7-23 GLUCOSE (test code = 1459118023) 139 mg/dL 70-110 H CREATININE (test code = 4167214042) 0.98 mg/dL 0.50-1.04 TOTAL BILI (test code = 2082293792) 0.9 mg/dL 0.1-1.1 CALCIUM (test code = 0173831154) 9.2 mg/dL 8.6-10.6 T PROTEIN (test code = 8744372237) 7.2 g/dL 6.3-8.2 ALBUMIN (test code = 4257351987) 4.5 g/dL 3.5-5.0 ALK PHOS (test code = 5171718426) 88 U/L 34-122 ALTv (test code = 1742-6) 16 U/L 5-35 AST(SGOT) (test code = 0980312169) 26 U/L 13-40 eGFR (test code = 8833839679) mL/min/1.73m2 ALDO (test code = ALDO) Association of [...] or abnormalities in imaging tests). Lab Interpretation (test code = 99134-2) Abnormal [facility] WITH [id number] 02:19:37* Test Item Value Reference Range Interpretation Comme nts WBC (test code = 6690-2) See_Comment H [Automated [employer]] The system which generated this result transmitted reference range: 4.30 - 11.10 10*3/?L. The reference range was not used to interpret this result as normal/abnormal. RBC (test code = 789-8) See_Comment L [Automated [employer]] The system which generated this result transmitted reference range: 3.93 - 5.25 10*6/?L. The reference range was not used to interpret this result as normal/abnormal. HGB (test code = 718-7) 11.0 g/dL 11.6-15.0 L HCT (test code = 4544-3) 34.5 % 35.7-45.2 L MCV (test code = 787-2) 92.5 fL 80.6-95.5 MCH (test code = 785-6) 29.5 pg 25.9-32.8 MCHC (test code = 786-4) 31.9 g/dL 31.6-35.1 RDW-SD (test code = 52365-7) 47.7 fL 39.0-49.9 RDW-CV (test code = 788-0) 14.1 % 12.0-15.5 PLT (test code = 777-3) See_Comment [Automated messa ge] The system which generated this result transmitted reference range: 166 - 358 10*3/?L. The reference range was not used to interpret this result as normal/abnormal. MPV (test code = 07358-6) 9.5 fL 9.5-12.9 NRBC/100 WBC (test code = 7790782518) See_Comment [Automated [employer]] The system which generated this result transmitted reference range: 0.0 - 10.0 /100 WBCs. The reference range was not used to interpret this result as normal/abnormal. NRBC x10^3 (test code = 8957979980) See_Comment [Automated messa ge] The system which generated this result transmitted reference range: 10*3/?L. The reference range was not used to interpret this result as normal/abnormal. GRAN MAT (NEUT) % (test code = 770-8) 82.8 % IMM GRAN % (test code = 1468985187) 0.40 % LYMPH % (test code = 736-9) 8.9 % MONO % (test code = 5905-5) 6.1 % EOS % (test code = 713-8) 1.2 % BASO % (test code = 706-2) 0.6 % GRAN MAT x10^3(ANC) (test code = 6799598497) 9.30 10*3/uL 1.88-7.09 H IMM GRAN x10^3 (test code = 5531064753) 0.04 10*3/uL 0.00-0.06 LYMPH x10^3 (test code = 731-0) 1.00 10*3/uL 1.32-3.29 L MONO x10^3 (test code = 742-7) 0.68 10*3/uL 0.33-0.92 EOS x10^3 (test code = 711-2) 0.13 10*3/uL 0.03-0.39 BASO x10^3 (test code = 704-7) 0.07 10*3/uL 0.01-0.07 Lab Interpretation (test code = 20150-5) [facility] 21:43:54* Test Item Value Reference Range Interpretation Comme nts Height (test code = 0420049507) in Weight (test code = 9929489760) lbs Systolic BP (test code = 6603003180) mmHg Diastolic BP (test code = 4645637243) mmHg Heart Rate (test code = 6329425598) bpm LVOT stroke volume (test code = 1810741501) 54.70 cm3 EF(Teich) (test code = 5426411231) 64.80 % LVIDD (test code = 6382152896) 4.10 cm LVIDS (test code = 9981468358) 2.70 cm Left Ventricular End Systolic Volume by Teichholz Method (test code = 5202637) 26.9 mL Left Ventricular End Diastolic Volume by Teichholz Method (test code = 3173294) 76.4 mL IVS (test code = 0293428061) 0.73 cm LVPWD (test code = 9429601407) 0.78 cm LVOT diameter (test code = 2514476241) 1.94 cm LVOT area (test code = 1766234965) 3.00 cm2 FS (test code = 9029416771) 35 % MV Peak E Courtney (test code = 0292629026) 72.8 cm/s MV Peak A Courtney (test code = 6749373083) 93.4 cm/s E/A ratio (test code = 8479382303) ratio E wave decelartion time (test code = 7836110102) 0.23 s LA volume (BP) (test code = 1898822126) 18.7 mL LVOT peak courtney (test code = 1324203337) 87.0 cm/s LVOT mn grad (test code = 1325681375) mmHg LA size (test code = 5841690539) 2.9 cm LAV(MOD-sp2) (test code = 8720049884) 10.30 mL LAV(MOD-sp4) (test code = 9075962951) 24.00 mL Tapse (test code = 0735328387) 1.22 cm Aortic valve mean velocity (test code = 1541766134) 74.5 cm/s Ao peak courtney (test code = 2895374277) 123.1 cm/s Ao VTI (test code = 9256640128) 25.2 cm AV LVOT peak gradient (test code = 2327944752) mmHg LVOT peak VTI (test code = 6968240538) 18.5 cm AV area by cont VTI (test code = 3026963566) 2.2 cm2 AV area peak courtney (test code = 8273820800) 2.1 cm2 LV V1 mean (test code = 5201883156) 54.70 cm/s Ao max PG (test code = 0597622243) 6.10 mm[Hg] MV Prop V (test code = 2834811285) 46.10 cm/s TR Peak Courtney (test code = 0262854551) 220.8 cm/s Triscuspid Valve Regurgitation Peak Gradient (test code = 7854716088) mmHg Ao root diam (test code = 6435983570) 2.90 cm AV peak gradient (test code = 6424573277) mmHg AV valve area (test code = 4269611055) 2.17 cm2 AV mean gradient (test code = 8022402310) mmHg Aortic root (test code = 0394764288) 2.9 cm Ao root annulus (test code = 1869921173) 2.9 cm PW (test code = 0497091628) 0.78 cm 0.6-1.1 EF - 2D (test code = 08803948) 64.80 % Interventricular Septum Diastolic Thickness by 2D (test code = 9719562) 0.73 cm LA Volume Index (BP) (test code = 5864669209) 13.6 mL/m2 BSA (test code = 6802779195) 1.37 m2 RV-pozo length (test code = 6137133126) 4.3 cm A4C EF (test code = 0602008076) 60.70 % EF(sp4-el) (test code = 5871009891) 58.50 % SV(MOD-sp4) (test code = 8036116217) 47.00 mL SV(sp4-el) (test code = 9045008308) 44.90 mL LV Diastolic Volume (BP) (test code = 1700904911) 68.7 mL A2C EF (test code = 5879836157) 61.80 % EF(MOD-bp) (test code = 5740138247) 60.10 % EF(sp2-el) (test code = 4783943508) 61.60 % LV Systolic Volume (BP) (test code = 9342589388) 27.4 mL SV(MOD-bp) (test code = 1828440207) 41.30 mL SV(MOD-sp2) (test code = 0907434211) 37.50 mL EF (test code = 0401128572) Left Ventricular Stroke Volume by 2-D Biplane-MOD (test code = 8030985) 41.3 mL LV Diastolic Volume Index (BP) (test code = 7373303001) 50.1 mL/m2 LV Systolic Volume Index (BP) (test code = 3083527952) 20.0 mL/m2 Radiology Study observation (narrative) (test code = 17208-7) ALDO (test code = ALDO) ?Left?Ventricle: Left [...] were obtained. Lumason ultrasound enhancing agent used. [facility] 21:43:54* Test Item Value Reference Range Interpretation Comme nts Height (test code = 5687590869) in Weight (test code = 5612835605) lbs Systolic BP (test code = 7255838520) mmHg Diastolic BP (test code = 4683737393) mmHg Heart Rate (test code = 4785367741) bpm LVOT stroke volume (test code = 9003368167) 54.70 cm3 EF(Teich) (test code = 7733575611) 64.80 % LVIDD (test code = 9114678863) 4.10 cm LVIDS (test code = 1644459103) 2.70 cm Left Ventricular End Systolic Volume by Teichholz Method (test code = 2576433) 26.9 mL Left Ventricular End Diastolic Volume by Teichholz Method (test code = 2316106) 76.4 mL IVS (test code = 9718043572) 0.73 cm LVPWD (test code = 8864230701) 0.78 cm LVOT diameter (test code = 3265757801) 1.94 cm LVOT area (test code = 9069199263) 3.00 cm2 FS (test code = 5128303753) 35 % MV Peak E Courtney (test code = 7034760501) 72.8 cm/s MV Peak A Courtney (test code = 3188759455) 93.4 cm/s E/A ratio (test code = 7239895294) ratio E wave decelartion time (test code = 2228233476) 0.23 s LA volume (BP) (test code = 7777913119) 18.7 mL LVOT peak courtney (test code = 0796418629) 87.0 cm/s LVOT mn grad (test code = 3462866002) mmHg LA size (test code = 2547775735) 2.9 cm LAV(MOD-sp2) (test code = 6561266780) 10.30 mL LAV(MOD-sp4) (test code = 6435224944) 24.00 mL Tapse (test code = 6577356610) 1.22 cm Aortic valve mean velocity (test code = 8298304107) 74.5 cm/s Ao peak courtney (test code = 4900772081) 123.1 cm/s Ao VTI (test code = 3160254290) 25.2 cm AV LVOT peak gradient (test code = 5735970690) mmHg LVOT peak VTI (test code = 0541723801) 18.5 cm AV area by cont VTI (test code = 9365539459) 2.2 cm2 AV area peak courtney (test code = 1036144696) 2.1 cm2 LV V1 mean (test code = 5045489068) 54.70 cm/s Ao max PG (test code = 7618243090) 6.10 mm[Hg] MV Prop V (test code = 9590972767) 46.10 cm/s TR Peak Courtnye (test code = 8744361807) 220.8 cm/s Triscuspid Valve Regurgitation Peak Gradient (test code = 9323672408) mmHg Ao root diam (test code = 7962495759) 2.90 cm AV peak gradient (test code = 6301745133) mmHg AV valve area (test code = 8098056504) 2.17 cm2 AV mean gradient (test code = 7580273902) mmHg Aortic root (test code = 8596200259) 2.9 cm Ao root annulus (test code = 3337154627) 2.9 cm PW (test code = 5962281204) 0.78 cm 0.6-1.1 EF - 2D (test code = 27556808) 64.80 % Interventricular Septum Diastolic Thickness by 2D (test code = 5954064) 0.73 cm LA Volume Index (BP) (test code = 0996108089) 13.6 mL/m2 BSA (test code = 4047855331) 1.37 m2 RV-pozo length (test code = 6378444146) 4.3 cm A4C EF (test code = 7092398083) 60.70 % EF(sp4-el) (test code = 8819819245) 58.50 % SV(MOD-sp4) (test code = 3784149205) 47.00 mL SV(sp4-el) (test code = 2449665214) 44.90 mL LV Diastolic Volume (BP) (test code = 8107848299) 68.7 mL A2C EF (test code = 2296551023) 61.80 % EF(MOD-bp) (test code = 6763445639) 60.10 % EF(sp2-el) (test code = 8435116185) 61.60 % LV Systolic Volume (BP) (test code = 3133102755) 27.4 mL SV(MOD-bp) (test code = 1971675209) 41.30 mL SV(MOD-sp2) (test code = 4364755483) 37.50 mL EF (test code = 8452495287) Left Ventricular Stroke Volume by 2-D Biplane-MOD (test code = 6356232) 41.3 mL LV Diastolic Volume Index (BP) (test code = 5296169217) 50.1 mL/m2 LV Systolic Volume Index (BP) (test code = 7592830434) 20.0 mL/m2 Radiology Study observation (narrative) (test code = 51013-6) ALDO (test code = ALDO) ?Left?Ventricle: Left [...] agent used. [facility] GLUCOSE (AUTOMATED)2022-07-12 18:54:46* Test Item Value Reference Range Interpretation Comme nts POCT GLU (test code = 8448962042) 146 mg/dL 70-110 H Lab Interpretation (test cod e = 94339-0) Abnormal [facility] GLUCOSE (AUTOMATED)2022-07-12 18:54:46* Test Item Value Reference Range Interpretation Comme nts POCT GLU (test code = 7579114703) 146 mg/dL 70-110 H Lab Interpretation (test cod e = 05099-2) Abnormal [facility] GLUCOSE (AUTOMATED)2022-07-12 15:00:17* Test Item Value Reference Range Interpretation Comme nts POCT GLU (test code = 2931417206) 132 mg/dL 70-110 H Lab Interpretation (test cod e = 58228-3) Abnormal [facility] GLUCOSE (AUTOMATED)2022-07-12 15:00:17* Test Item Value Reference Range Interpretation Comme nts POCT GLU (test code = 7828123312) 132 mg/dL 70-110 H Lab Interpretation (test cod e = 50831-6) Abnormal [facility] GLUCOSE (AUTOMATED)2022-07-12 03:47:57* Test Item Value Reference Range Interpretation Comme nts POCT GLU (test code = 4834149578) 173 mg/dL 70-110 H Lab Interpretation (test cod e = 55511-3) Abnormal [facility] GLUCOSE (AUTOMATED)2022-07-12 03:47:57* Test Item Value Reference Range Interpretation Comme nts POCT GLU (test code = 2524545467) 173 mg/dL 70-110 H Lab Interpretation (test cod e = 47184-6) Abnormal [facility] GLUCOSE (AUTOMATED)2022-07-12 00:11:45* Test Item Value Reference Range Interpretation Comme nts POCT GLU (test code = 7314312575) 236 mg/dL 70-110 H Lab Interpretation (test cod e = 35974-4) Abnormal [facility] GLUCOSE (AUTOMATED)2022-07-12 00:11:45* Test Item Value Reference Range Interpretation Comme nts POCT GLU (test code = 5436595930) 236 mg/dL 70-110 H Lab Interpretation (test cod e = 19640-7) Abnormal [facility] GLUCOSE (AUTOMATED)2022-07-11 22:59:10* Test Item Value Reference Range Interpretation Comme nts POCT GLU (test code = 7844737094) 195 mg/dL 70-110 H Lab Interpretation (test cod e = 47677-0) Abnormal [facility] GLUCOSE (AUTOMATED)2022-07-11 22:59:10* Test Item Value Reference Range Interpretation Comme nts POCT GLU (test code = 5542997739) 195 mg/dL 70-110 H Lab Interpretation (test cod e = 43330-2) Abnormal [facility]. METABOLIC PANEL (91776)2022-07-07 17:52:04* Test Item Value Reference Range Interpretation Comme nts NA (test code = 3842683724) 143 mmol/L 135-145 K (test code = 2419748498) 5.2 mmol/L 3.5-5.0 H CL (test code = 3816882803) 107 mmol/L 98-108 CO2 TOTAL (test code = 5829489493) 27 mmol/L 23-31 AGAP (test code = 2472717254) 2-16 BUN (test code = 8969917343) 28 mg/dL 7-23 H GLUCOSE (test code = 7436191552) 104 mg/dL 70-110 CREATININE (test code = 7224123811) 1.00 mg/dL 0.50-1.04 TOTAL BILI (test code = 2440466379) 1.2 mg/dL 0.1-1.1 H CALCIUM (test code = 4957761389) 8.9 mg/dL 8.6-10.6 T PROTEIN (test code = 2535509567) 6.9 g/dL 6.3-8.2 ALBUMIN (test code = 3736661507) 4.4 g/dL 3.5-5.0 ALK PHOS (test code = 7795772978) 72 U/L 34-122 ALTv (test code = 1742-6) 17 U/L 5-35 AST(SGOT) (test code = 0524893569) 27 U/L 13-40 eGFR (test code = 8706302689) mL/min/1.73m2 ALDO (test code = ALDO) Association of [...] or abnormalities in imaging tests). Lab Interpretation (test code = 45200-3) [id number] 17:46:24* Test Item Value Reference Range Interpretation Comme nts NT-proBNP (test code = 9072593497) 664 pg/mL See_Comment H [Automated message] The system which generated this result transmitted reference range: <=450. The reference range was not used to interpret this result as normal/abnormal. ALDO (test code = ALDO) Biotin has been reported to cause a negative bias, interpret results relative to patient's use of biotin. Lab Interpretation (test code = 96458-7) [facility] 17:30:45* Test Item Value Reference Range Interpretation Comme nts APTT Patient (test code = 3173-2) See_Comment [Automated message] The system which generated this result transmitted reference range: 23 - 38 Seconds. The reference range was not used to interpret this result as normal/abnormal. ALDO (test code = ALDO) The [facility] patient population mean normal value for aPTT is 30 seconds. Lab Interpretation (test code = 96495-6) Normal [facility] / [id number] 17:28:43* Test Item Value Reference Range Interpretation Comme [facility] PROTIME PATIENT (test code = 5964-2) See_Comment [Automated [employer]] The system which generated this result transmitted reference range: 12.0 - 14.7 Seconds. The reference range was not used to interpret this result as normal/abnormal. INR (test code = 6301-6) Normal INR <1.1; Warfarin Therapeutic range 2.0 to 3.0 or 2.5 to 3.5, depending upon the indications. Lab Interpretation (test code = 73122-6) [facility] [id number] 16:11:35* Test Item Value Reference Range Interpretation Comme nts WBC (test code = 6690-2) See_Comment [Automated [employer]] The system which generated this result transmitted reference range: 4.30 - 11.10 10*3/?L. The reference range was not used to interpret this result as normal/abnormal. RBC (test code = 789-8) See_Comment L [Automated messa ge] The system which generated this result transmitted reference range: 3.93 - 5.25 10*6/?L. The reference range was not used to interpret this result as normal/abnormal. HGB (test code = 718-7) 11.2 g/dL 11.6-15.0 L HCT (test code = 4544-3) 35.5 % 35.7-45.2 L MCV (test code = 787-2) 92.9 fL 80.6-95.5 MCH (test code = 785-6) 29.3 pg 25.9-32.8 MCHC (test code = 786-4) 31.5 g/dL 31.6-35.1 L RDW-SD (test code = 95470-9) 48.5 fL 39.0-49.9 RDW-CV (test code = 788-0) 14.6 % 12.0-15.5 PLT (test code = 777-3) See_Comment [Automated [employer] ge] The system which generated this result transmitted reference range: 166 - 358 10*3/?L. The reference range was not used to interpret this result as normal/abnormal. MPV (test code = 40437-7) 9.6 fL 9.5-12.9 NRBC/100 WBC (test code = 6369382846) See_Comment [Automated Geddit ssage] The system which generated this result transmitted reference range: 0.0 - 10.0 /100 WBCs. The reference range was not used to interpret this result as normal/abnormal. NRBC x10^3 (test code = 4182017047) See_Comment [Automated [employer] ge] The system which generated this result transmitted reference range: 10*3/?L. The reference range was not used to interpret this result as normal/abnormal. GRAN MAT (NEUT) % (test code = 770-8) 72.8 % IMM GRAN % (test code = 9841377775) 0.30 % LYMPH % (test code = 736-9) 17.4 % MONO % (test code = 5905-5) 6.8 % EOS % (test code = 713-8) 1.8 % BASO % (test code = 706-2) 0.9 % GRAN MAT x10^3(ANC) (test code = 7003165529) 5.65 10*3/uL 1.88-7.09 IMM GRAN x10^3 (test code = 5057787213) 0.00-0.06 LYMPH x10^3 (test code = 731-0) 1.35 10*3/uL 1.32-3.29 MONO x10^3 (test code = 742-7) 0.53 10*3/uL 0.33-0.92 EOS x10^3 (test code = 711-2) 0.14 10*3/uL 0.03-0.39 BASO x10^3 (test code = 704-7) 0.07 10*3/uL 0.01-0.07 Lab Interpretation (test code = 11359-0) Abnormal [facility] History and Physical Notes Date/Time Note Provider Source 2023-04-06 14:33:23 Formatting of this n ote is different from the original. [facility] H&P Date of Service: 04/06/2023 PCP: Cydney Strickland CHIEF COMPLAINT: History of Present Illness Justin Parekh is a 78 year old female with PMH CKD-III, CAD s/p CABG (MCBRIDE-LAD patent, SVG-OM occluded, s/p PCI to severe LM-pLCx disease on 07/11/22, PAD, HTN, HLD s/p LHC with coronary angio + RHC. Patient reports more recently experiencing recurrent atypical chest pain in addition to MANJARREZ. She was no longer able to do the same activities without getting quickly fatigued. Daughter states that the patient lives by herself and does all of her daily living tasks herself and has noticed a significant change in her abilities secondary to MANJARREZ and pain. Patient was recently seen in ED for prolonged persistent chest pain. EKG/troponins x2 were negative without further need for work up. Patient was discharged home then followed up with her pumpman Naomy Bravo MD who ultimately put in request for cath. Patient currently feels well post-procedure. [...] Q8HPRN isosorbide mononitrate (IMDUR) 60 mg, Oral, DAILY lisinopriL (PRINIVIL,ZESTRIL) 10 mg, Oral, BID metFORMIN (GLUCOPHAGE) 1,000 mg, Oral, BID MEALS metoprolol tartrate (LOPRESSOR) 50 mg, Oral, BID MEALS rosuvastatin (CRESTOR) 20 mg, Oral, QHS REVIEW OF SYSTEMS Review of Systems Constitutional: Negative for chills and fever. Respiratory: Negative for shortness of breath and wheezing. Cardiovascular: Negative for chest pain, palpitations and leg swelling. Gastrointestinal: Positive for nausea. Negative for vomiting. PHYSICAL EXAMINATION Vitals: 04/06/23 1316 04/06/23 1330 04/06/23 1432 04/06/23 1446 BP: (!) 141/52 (!) 152/48 Pulse: 60 56 Resp: 16 16 Temp: 37.2 ?C (98.9 ?F) 36.9 ?C (98.4 ?F) SpO2: 98% 97% Weight: 47.6 kg (105 lb) 47.6 kg (105 lb) Height: 1.448 m (4' 9") 1.448 m (4' 9") General: No acute distress, A&O x4 HEENT: Normocephalic, atraumatic, normal conjunctiva & lids, moist mucous membranes Lungs: clear to auscultation bilaterally, no crackles, wheezes, or rhonchi Cardiovascular: Normal S1, S2, RRR, no rubs, murmurs, or gallops Abdomen: soft, non-tender, non-distended, + BS Extremities: no edema, 2+ peripheral pulses, warm and dry Integumentary: no rashes, warm, dry [...] as below: Echo 07/11/2022 Left Ventricle Left ventricle size is normal. Increased wall thickness. There is concentric remodeling. Normal wall motion. Normal systolic function with a visually estimated EF of 55 - 60%. EF by 2D Orantes biplane is 60%. Normal diastolic function. Right Ventricle Right ventricle size is normal. Normal systolic function. Left Atrium Left atrium size is normal. Right Atrium Right atrium size is normal. IVC/SVC IVC diameter is less than or equal to 21 mm and decreases greater than 50% during inspiration; therefore the estimated right atrial pressure is normal (~0-5 mmHg). Mitral Valve Mitral valve structure is normal. Mild posterior mitral annular calcification. Trace transvalvular regurgitation. No stenosis. Tricuspid Valve Tricuspid valve structure is normal. Insufficient tricuspid regurgitation jet to estimate RVSP.Trace transvalvular regurgitation. Right ventricular systolic pressure is normal. RA pressure is 0-5 mmHg. No stenosis. Aortic Valve Aortic valve structure is normal. Physiologically normal transvalvular regurgitation. No hemodynamically significant . Pulmonic Valve Not well visualized. Pulmonic valve is normal in structure and function. Physiologically normal transvalvular regurgitation. No stenosis. Pericardium The pericardium is normal. No pericardial effusion. Interpretation Summary Left Ventricle: Left ventricle size is normal. Increased wall thickness. There is concentric remodeling. Normal wall motion. Normal systolic function with a visually estimated EF of 55 - 60%. EF by 2D Orantes biplane is 60%. Normal diastolic function. Right Ventricle: Right ventricle size is normal. Normal systolic function. No valvular pathology noted. [facility] 04/06/23 Coronary dominance: left Left main: Patent LM stent LAD: Large. SYSTEM SAFETY ENGINEER LCX: Large,dominant, proximal stent with 70% ISR (IVUS indicative ISR with stent under-expansion, MLA 3.7 mm^2 and 71.9% stenosis; 3.5 Florence Cutting Balloon; 4.0 NC; minimal residual stenosis), mid to distal mild LI OM1: Small to medium size, ostial 80-90% then mild LI OM2,3: Small OM 4,5: Small to medium size, mild LI LPDA/PL: Small to medium size, mild LI RCA: Medium size, non-dominant, proximal 90%, mid 80%, distal mild LI. Distal vessel gives R==>L collaterals to dLAD Grafts: MCBRIDE to LAD: Patent. Mid to distal vessel is of small caliber. Distal SYSTEM SAFETY ENGINEER. Distal vessel is supplied by R==>L collaterals SVG to OM: Known to be occluded. LVEDP: 7 mmHg Impression: Severe shawnee disease Patent MCBRIDE to LAD Severe pLCx ISR. Successful PTCA with 4.0 NC Markedly elevated BP ASSESSMENT/PLAN Justin Parekh is a 78 year old female with PMH as listed above, admitted to the hospital with: Unstable angina pectoris CAD s/p CABG (2016); S/p PCI Lcx (07/11/2022) Essential hypertension Bilateral carotid artery stenosis MANJARREZ (dyspnea on exertion) PAD (peripheral artery disease) HTN HLD -Admit to [facility] -Telemetry -CBC, BMP, Mg, -Keep K >4, Mg > 2 -Cardiac diet - ASA 81 mg daily - Brilinta 180 mg load given, c/w 90 mg BID 2 doses (one tonight, one heide morning). - Load Plavix 300 mg tomorrow, then c/w 75 mg daily thereafter - Rosuvastatin 20 mg - lisinopriL, [...] mg, DAILY heparin (porcine) 5,000 units subcutaneous injection, 5,000 Units, Q12H [START ON 04/07/2023] isosorbide [...] 25 mL, PRN glucagon, 1 mg, PRN Associated attestation - Fuad Soliz MD - 04/07/2023 12:57 PM CDT I discussed the patient and agree with the management and plan as outlined in the resident's note, written by Dr. Lemus . Please see the resident's note for additional details. Fuad Soliz MD Shipping Technician Division of Cardiology [facility] Procedure Notes Date/Time Note Provider Source 2023-04-06 11:54:00 Procedure(s): BYRD RY ANGIOGRAPHY; LEFT HEART CATH; IVUS; PERCUTANEOUS TRANSLUMINAL CORONARY ANGIOPLASTY Pre-Procedure Diagnose(s): Coronary artery disease of shawnee artery of shawnee heart with stable angina pectoris Post-Procedure Diagnose(s): Coronary artery disease of shawnee artery of shawnee heart with stable angina pectoris Left Heart Cath/Coronary Angiography Date of Service: 04/06/2023 11:55 AM Fellow: Drs. Ayon and Mustapha Faculty: [facility] Indication/Diagnosis: Stable Angina Consent source: self Consent type: indications/complications discussed with patient/legal guardian; written consent obtained Time out completed: yes Aseptic technique: Chlorprep Local Anesthesia: 1% lidocaine without epinephrine Sedation: fentanyl 25 mcg, Versed 1 mg Access site: right femoral artery Closure Method: Angio-Seal Sterile dressing: yes Complications: none Findings: Coronary dominance: left Left main: Patent LM stent LAD: Large. SYSTEM SAFETY ENGINEER LCX: Large,dominant, proximal stent with 70% ISR (IVUS indicative ISR with stent under-expansion, MLA 3.7 mm^2 and 71.9% stenosis; 3.5 [place] Cutting Balloon; 4.0 NC; minimal residual stenosis), mid to distal mild LI OM1: Small to medium size, ostial 80-90% then mild LI OM2,3: Small OM 4,5: Small to medium size, mild LI LPDA/PL: Small to medium size, mild LI RCA: Medium size, non-dominant, proximal 90%, mid 80%, distal mild LI. Distal vessel gives R==>L collaterals to dLAD Grafts: MCBRIDE to LAD: Patent. Mid to distal vessel is of small caliber. Distal SYSTEM SAFETY ENGINEER. Distal vessel is supplied by R==>L collaterals SVG to OM: Known to be occluded. LVEDP: 7 mmHg Right External Iliac angiogram: Patent Post-Procedure Sedation Addendum Immediately prior to start of sedation, the patient was evaluated and there was no change from the pre-procedure evaluation. I was present and directed medical care. The patient underwent moderate sedation for the procedure. The medications administered were recorded in the MAR; oxygenation, ventilation and circulation were monitored continuously and were recorded in the EMR. I evaluated the patient after the procedure. The patient was evaluated immediately as recovering from sedation. Complications: None Impression: Severe shawnee disease Patent MCBRIDE to LAD Severe pLCx [...] for 8 hours If symptoms recur, LM-LCx lithotripsy will be considered +/- PTCA/SHAREPOINT CONSULTANT of p-mRCA Findings and plan discussed with patient and family Naga Lakhani M.D. Interventional Cardiology Pager: [phone] IM-INTERVENTIONAL CARDIOLOGY STAFF [facility] - [facility] Notes Date/Time Note Provider Source 2024-05-10 13:25:22 Patient given printed and verbal discharge instructions regarding chest pain, unspecified type. Pt verbalized understanding of instructions, pt awake alert oriented, resp reg unlabored, skin w/d, color appropriate for race, moves all ext well,pt encouraged to follow up with pcp. Advised to seek medical attention for new/prolonged/worsening of symptoms. No adverse reaction to meds given in ER noted upon discharge PIV d'cd, dressing to site, catheter in tact. Awake, alert oriented, resp reg unlabored, skin w/d, pt leaving amb with steady gait, in no apparent distress. Pina Hale RN [facility] 2024-05-10 10:51:26 Patient to ED for left sided chest pain that got worse at 7am. Pain does not radiate. Pain started yesterday. Jeff Nelson RN [facility] 2024-05-10 10:43:00 Associated Order(s): EKG-12 Lead ROUTINE ONCE Pre-Procedure Diagnose(s): Chest pain, unspecified type Post-Procedure Diagnose(s): Chest pain, unspecified type [facility] Emergency Department Note Patient Name: Justin Parekh Date of : 1945 79 year old female Treatment Room: IA1/IA1 Primary Care Physician: Cydney Strickland Patient Escorted by: Family [5] Mode of Arrival: Personal means [1] EMS Treatment Prior to ED Arrival: STATION INSTALLER treatment: None Travel and Exposure Screening: Symptoms Does patient have any of these symptoms?: (not recorded) Exposure Screening Has patient had contact with someone with a communicable disease in the last month?: (not recorded) Diseases exposed to:: (not recorded) Is Patient ?: (not recorded) Exposure Date: (not recorded) Chief Complaint: Chief Complaint Patient presents with Chest Pain History of Present Illness: The patient presents from home for evaluation for left-sided chest pain that started around 7:00 this morning. She had already woken up on her own. She reports the pain does not radiate to her neck, back or jaw. No change in the pain with exertion or deep breathing. No pain medications taken today. No shortness of breath. No cough or congestion. No leg swelling. She does have a recently placed pacemaker that was placed September 20. She also previously underwent CABG in 2017. She is history of coronary disease, diabetes, high blood pressure as well as high cholesterol. She does follow with Dr. Francis with cardiology. She does not smoke. Here for evaluation. Past Medical History/Immunizations: Past Medical History: Diagnosis Date Arthritis CAD, multiple vessel s/p cabg in jun 2017 Cataract CHF (congestive heart failure) 09/13/2017 Diabetes mellitus Hyperlipidemia Hypertension Tetanus received in last 5 years: Yes Childhood immunizations: Up-to-date Allergies: No Known Allergies Past Social History: Tobacco Use Never smoked or used smokeless tobacco. Alcohol Use No. Drug Use No. Past Surgical History: Past Surgical History: Procedure Laterality Date ANGIOGRAM VIA LOWER EXTREMITY ACCESS (SHX) Bilateral 12/28/2023 Surgeon: Liang Thorpe MD; Location: [facility] CAROTID ENDARTERECTOMY Bilateral CORONARY ARTERY BYPASS GRAFT N/A 07/02/2017 Surgeon: Mona Rondon MD; Location: [facility] ENDOSCOPIC VEIN HARVEST (SHX) Left 07/02/2017 Surgeon: Mona Rondon MD; [facility] E[facility] SURGERY Bilateral 2016 cataract removal Review of Systems: Review of Systems Constitutional: Negative for chills and fever. Respiratory: Negative for cough and shortness of breath. Cardiovascular: Positive for chest pain. Gastrointestinal: Negative for abdominal pain, nausea and vomiting. Genitourinary: Negative for dysuria. Musculoskeletal: Negative for arthralgias, neck pain and neck stiffness. Skin: Negative for wound. Neurological: Negative for dizziness. Psychiatric/Behavioral: Negative for agitation. Endocrine: Negative for goiter. Physical Exam: ED Triage Vitals [05/10/24 1052] Weight 46.3 kg (102 lb) Actual or estimated Height 1.499 m (4' 11") BP 134/78 Pulse 66 Resp 18 Temp 36.8 ?C (98.3 ?F) Temp src SpO2 98 % Measured on Physical Exam Vitals and nursing note reviewed. Constitutional: Appearance: Normal appearance. She is normal weight. HENT: Head: Normocephalic and atraumatic. Cardiovascular: Rate and Rhythm: Normal rate and regular rhythm. Pulses: Normal pulses. Pulmonary: Effort: Pulmonary effort is normal. No respiratory distress. Breath sounds: No stridor. No wheezing or rhonchi. Abdominal: General: There is no distension. Palpations: Abdomen is soft. There is no mass. Tenderness: There is no abdominal tenderness. There is no guarding or rebound. Hernia: No hernia is present. Musculoskeletal: General: Normal range of motion. Cervical back: Normal range of motion and neck supple. Right lower leg: No edema. Left lower leg: No edema. Skin: General: Skin is warm and dry. Neurological: General: No focal deficit present. Mental Status: She is alert and oriented to person, place, and time. Radiology: XR CHEST 1 VW Preliminary Result EXAM: XR CHEST 1 VW COMPARISON: Chest x-ray on 05/18/2023 HISTORY: chest pain FINDINGS: Lines/Devices: Left chest wall pacemaker with its leads projecting over the right atrium and right ventricle are seen. Lungs: Normal to low lung volumes. Streaky left basilar atelectasis. No focal opacities or pleural abnormality. Heart/Mediastinum: The cardiac silhouette appears normal accounting for technique and degree of inspiration. Calcified aortic knob. Bones and soft tissues: Postsurgical changes of CABG. Median sternotomy wires are in adequate alignment. Coronary artery stents are visualized. No acute osseous abnormality is visualized. IMPRESSION No radiographic evidence of acute cardiopulmonary process. Preliminary Report Dictated by Resident: Long Pickard Lab Results: Lab Results CBC WITH DIFF - Abnormal Result Value Ref Range WBC 6.67 4.30 - 11.10 10*3/?L RBC 4.10 3.93 - 5.25 10*6/?L HGB 12.5 11.6 - 15.0 g/dL HCT 39.1 35.7 - 45.2 % MCV 95.4 80.6 - 95.5 fL MCH 30.5 25.9 - 32.8 pg MCHC 32.0 31.6 - 35.1 g/dL RDW-SD 49.2 39.0 - 49.9 fL RDW-CV 14.0 12.0 - 15.5 % PLT 224 166 - 358 10*3/?L MPV 9.8 9.5 - 12.9 fL NRBC/100 WBC 0.0 0.0 - 10.0 /100 WBCs NRBC x10 3 <0.01 10*3/?L GRAN MAT (NEUT) % 66.0 % IMM GRAN % 0.30 % LYMPH % 23.1 % MONO % 7.8 % EOS % 1.5 % BASO % 1.3 % GRAN MAT x10 3 (ANC) 4.40 1.88 - 7.09 10*3/uL IMM GRAN x10 3 <0.03 0.00 - 0.06 10*3/uL LYMPH x10 3 1.54 1.32 - 3.29 10*3/uL MONO x10 3 0.52 0.33 - 0.92 10*3/uL EOS x10 3 0.10 0.03 - 0.39 10*3/uL BASO x10 3 0.09 (*) 0.01 - 0.07 10*3/uL COMP. METABOLIC PANEL (69718) - Abnormal NA 137 135 - 145 mmol/L K 4.5 3.5 - 5.0 mmol/L CL 107 98 - 108 mmol/L CO2 TOTAL 19 (*) 23 - 31 mmol/L AGAP 11 2 - 16 BUN 31 (*) 7 - 23 mg/dL GLUCOSE 186 (*) 70 - 110 mg/dL CREATININE 1.08 (*) 0.50 - 1.04 mg/dL TOTAL BILI 1.2 (*) 0.1 - 1.1 mg/dL CALCIUM 9.2 8.6 - 10.6 mg/dL T PROTEIN 7.2 6.3 - 8.2 g/dL ALBUMIN 4.3 3.5 - 5.0 g/dL ALK PHOS 85 34 - 122 U/L ALTv 19 5 - 35 U/L AST(SGOT) 24 13 - 40 U/L eGFR 51.7 mL/min/1.73m2 N-TERMINAL PRO-BNP - Abnormal NT-proBNP 394 <=125 pg/mL TROPONIN I - Normal TROPONIN I 0.004 <=0.034 ng/mL MAGNESIUM - Normal MAGNESIUM 2.1 1.7 - 2.4 mg/dL TROPONIN I - Normal TROPONIN I 0.005 <=0.034 ng/mL EKG: If EKG completed, see Procedure Note. Orders and Treatments: Orders Placed This Encounter Procedures XR CHEST 1 VW CBC WITH DIFF COMP. METABOLIC PANEL (27920) TROPONIN I N-TERMINAL PRO-BNP Magnesium TROPONIN I Orders Placed This Encounter Medications aspirin chewable tablet 243 mg famotidine (PEPCID (PF)) injection 20 mg ketorolac (TORADOL) injection 15 mg First Provider Eval: ED Events Date/Time Event User Comments 05/10/24 1048 Medical Screening Begins MICAELA HOWARD DO -- 05/10/24 1048 First Provider Evaluation MICAELA HOWARD DO -- ED COURSE Diagnosis/Impression as of 05/10/24 1317 Chest pain, unspecified type Procedures: EKG-12 Lead ROUTINE ONCE Date/Time: 05/10/2024 11:00 AM Performed by: Micaela Howard DO Authorized by: Micaela Howard DO ECG interpreted by ED Physician in the absence of a pumpman: yes Interpretation: Interpretation: normal Rate: ECG rate: 60 ECG rate assessment: normal Rhythm: Rhythm: paced Pacing: Capture: Complete Ectopy: Ectopy: none QRS: QRS axis: Normal QRS intervals: Normal QRS conduction: normal ST segments: ST segments: Normal T waves: T waves: normal Q waves: Abnormal Q-waves: not present MDM: Medical Decision Making The patient presents from home for evaluation for left-sided chest pain that started around 7:00 this morning. She had already woken up on her own. She reports the pain does not radiate to her neck, back or jaw. No change in the pain with exertion or deep breathing. No pain medications taken today. No shortness of breath. No cough or congestion. No leg swelling. She does have a recently placed pacemaker that was placed September 20. She also previously underwent CABG in 2017. She is history of coronary disease, diabetes, high blood pressure as well as high cholesterol. She does follow with Dr. Francis with cardiology. She does not smoke. Vital signs are stable in ER. Her heart is regular rhythm. Her lungs are clear bilaterally. She has right-sided anterior chest wall tenderness with palpation. No pitting edema to her bilateral legs. Her EKG shows a paced rhythm. Will give the patient 3 additional 81 mg aspirin tablets today as she previously took one 81mg tablet today. Will check laboratory studies including a troponin and obtain a chest x-ray. Final disposition pending. 1220 -the patient is doing well here in the ER. Her pain is improving with the medications given here. Her initial troponin is unremarkable at 0.004. Will repeat her troponin to monitor the trend. Final disposition pending. 1317 the patient is doing well here in the ER. Her pain has improved with the medications given here in the ER. Her repeat troponin is unremarkable. - She remained stable here in the ER and is okay for discharge home with outpatient follow-up with her pumpman. Problems Addressed: Chest pain, unspecified type: acute illness or injury Amount and/or Complexity of Data Reviewed Labs: ordered. Decision-making details documented in ED Course. Radiology: ordered and independent interpretation performed. Decision-making details documented in ED Course. ECG/medicine tests: ordered and independent interpretation performed. Decision-making details documented in ED Course. Risk OTC drugs. Prescription drug management. Flowsheet Documentation: Scoring Tools: No data recorded Disposition/Condition: ED Disposition ED Disposition Discharge Condition Stable Comment -- Discharge Medications: Patient's Medications START taking these medications No medications on file CONTINUE taking these medications which have NOT CHANGED AMLODIPINE 10 MG TABLET Take 1 tablet by mouth every evening. ASPIRIN (SEDRICK CHEWABLE ASPIRIN) 81 MG CHEWABLE TABLET Take 1 tablet by mouth in the morning. Indications: takes 2 per day CHOLECALCIFEROL, VITAMIN D3, 50 MCG (2,000 UNIT) CAPSULE Take 1 capsule by mouth. CLOPIDOGREL 75 MG TABLET TAKE 1 TABLET BY MOUTH IN THE MORNING EMPAGLIFLOZIN (JARDIANCE) 10 MG TABLET TAKE 1 TABLET BY MOUTH IN THE MORNING FERROUS SULFATE 325 MG (65 MG IRON) EC TABLET Take 1 tablet by mouth every 48 (forty-eight) hours. ISOSORBIDE MONONITRATE 120 MG 24 HR TABLET TAKE 1 TABLET BY MOUTH IN THE MORNING LISINOPRIL 10 MG TABLET Take 1 tablet by mouth in the morning and 1 tablet in the evening. METFORMIN (GLUCOPHAGE) 500 MG TABLET Take 2 tablets by mouth in the morning and 2 tablets in the evening. Take with meals. METOPROLOL TARTRATE 50 MG TABLET Take 1 tablet by mouth in the morning and 1 tablet in the evening. Take with meals. NITROGLYCERIN 0.[address] 1 tablet under the tongue every 5 (five) minutes as needed for Chest pain. ROSUVASTATIN 20 MG TABLET Take 1 tablet by mouth at bedtime. START taking Modified Medications as Prescribed No medications on file STOP taking these medications No medications on file Follow-up: Contact information for follow-up Cydney Strickland Specialty: FAMILY MEDICINE Relationship: PCP - [facility] [address] [place] [address] [address] Electronically signed by: Micaela Howard DO 05/10/24 1318 [facility] 2024-05-08 14:54:10 Medication refills given. Notified appointment needed before more refills approved. Kathy Santacruz LVN 05/08/2024 2:55 PM Kathy Santacruz LVN [facility] 2024-01-22 10:42:50 Access Center: [facility] Open Encounter Maintenance Chart Review: Patient had procedure on 12/28/2023. Nurse Note: RN closing encounter in [facility] r/t clinical action items completed. Catrachita Montero RN [facility] Access Center Triage Nurse Catrachita Montero RN [facility] 2023-12-31 08:17:54 Images from the original note were not included. Requested Prescriptions Pending Prescriptions Disp Refills isosorbide mononitrate 120 mg 24 hr tablet 30 tablet 3 Sig: Take 1 tablet by mouth in the morning. Patient compliant with refill guidelines. Cardiovascular: Nitrates [id number]/30/2023 01:51 PM Protocol Details Valid encounter within last 12 months Charmaine Figueroa RN [facility] 2023-12-25 13:27:06 12/26/23- NO SURGICAL CONSENT PRESENT CURRENTLY.Tana STARR RN Mine Starr RN [facility] 2023-12-24 14:13:22 Patient is scheduled for a procedure on 12/27, she needs to know which medication to stop taking, Please assist, contact patients daughter to let her know which medication, [phone] Evelyn Yanes [facility] 2023-11-12 11:48:04 Images from the original note were not included. Notified patient's daughter Rukhsana per Dr Bravo: Naomy Bravo MD P Cardiology Nurse BNP acceptable. BMP within acceptable limits except mildly elevated Cr. Mag Normal Continue with current meds with no changes. Rpt BMP alone after adequate hydration in 2 weeks. Verbal understanding. BMP orders placed. T [facility] 2023-11-09 12:30:00 Images from the original note were not included. Venipuncture collection performed by clean technique on the left anticubitus. Total of 1 attempts were made. Slight pressure and a bandage/dressing were applied to the site(s). The patient experienced no complications. The following specimens were processed according to instructions and sent to [facility] laboratories per lab order on 11/09/2023 : LT BLUE SST 1 RED LAV PPT DK GREEN (LiHep) DK GREEN (SodH) AVINA DK BLUE (K2) DK BLUE (S) ACD Blood Culture NIPT/NTD T [facility] 2023-11-09 12:30:00 BNP acceptable. BMP within acceptable limits except mildly elevated Cr. Mag Normal Continue with current meds with no changes. Rpt BMP alone after adequate hydration in 2 weeks. T [facility] 2023-11-09 12:30:00 Addended by: NAOMY BRAVO on: 11/14/2023 05:31 PM Modules accepted: Orders T [facility] 2023-11-05 15:58:59 Patient's daughter notified of Dr. Bravo's recommendations. She said that she will take her mom to have labs done on Sunday when she comes for her CT scan. She will send the BP log this evening. Charmaine Figueroa RN [facility] 2023-11-04 19:11:30 Recommended BMP/BNP to be done to assess leg swelling. Please ask her to send us the blood pressure log also. T [facility] 2023-10-26 16:49:53 Spoke with daughter and appt scheduled for Sunday for evaluation. T Scarlett Hopper LVN [facility] 2023-10-25 09:45:50 Spoke with patient's daughter. She states the leg swelling is similar to previously observed leg swelling, however, she is noticing that her mom's feet are swelling more often. Does not improve with elevation. She denies pain, shortness of breath, or any additional concerns. RIN 09/17/[address] Thorpe (vascular surgery). They sent a message to his office as well for advice. Charmaine Figueroa RN [facility] 2023-09-19 12:48:33 Spoke with patient's daughter, arrival time was given at 6:15AM. [facility] Jayden Mchugh RN [facility] 2023-09-18 14:30:04 Instructions were given, however, we still need a time for procedure. Will f/u with time. ANICAL TECHNOLOGIST Aminta Chaney RN [facility] 2023-09-18 14:22:48 [facility] EP LAB PRE-CALL INSTRUCTIONS EP Instructions were sent to patient via: Other telephone Your physician has determined that you need to undergo a(n) Pacemaker Insertion procedure. Listed below are some instructions for you to follow prior to the procedure. Do not eat or drink anything after midnight the night before the procedure, except for enough water to take your medications if so directed. Take all medications except do not take metformin (Glucophage) 2 days prior to the procedure and do not take insulin or furosemide (lasix) the day of the procedure. If you are on blood thinners special instructions will be given to you prior to the procedure. If you are allergic to iodine or shellfish, take pre-treatment medications as directed. Please call your referring physician for prescription. Bring a list of all current medications. Bring one adult family member or friend with you to drive you home, as you will be unable to drive for 48 hours after the procedure. Due to limited space and patient privacy, only one (1) visitor is permitted with the patient while they are recovering in the recovery area. No children under the age of 14 years will be allowed in recovery area. Please park in the Hospital Garage via [address] from either [address] or [email or web address]. Bring your parking ticket with you to be validated, only one parking ticket may be validated per patient. There may be a possibility of hospital admission or late evening discharge; therefore, bring leisure reading and an overnight bag. On the day of your procedure, come directly to the Electrophysiology Lab nurse receptionist desk, located on the 6th floor of [facility] ([phone].) You will be escorted to the Cardiac Cath/EP recovery room. Please call the Electrophysiology Lab at if you have any questions regarding your procedure. Date of Procedure: 09/21/2023 Time of Procedure: need time Vendors Needed: n/a Vendors Verified: n/a Anesthesia Verified: no Anesthesia Consent: no Drug Allergies? No Labs Verified? no Note in Chart and any Important Info needed for the case: n/a Instructions given to patient: yes Patient and Family member provided with preferred teaching of verbal information on pace maker insertion. Shows readiness to learn. Verbal instruction teaching provided. Individual is able to read and verbalizes understanding of teaching provided. [facility] 2023-09-14 16:06:57 [facility] EP LAB PRE-CALL INSTRUCTIONS EP Instructions were sent to patient via: Telephone Your physician has determined that you need to undergo a(n) Pacemaker Insertion procedure. Listed below are some instructions for you to follow prior to the procedure. Do not eat or drink anything after midnight the night before the procedure, except for enough water to take your medications if so directed. Take all medications except do not take metformin (Glucophage) 2 days prior to the procedure and do not take insulin or furosemide (lasix) the day of the procedure. If you are on blood thinners special instructions will be given to you prior to the procedure. If you are allergic to iodine or shellfish, take pre-treatment medications as directed. Please call your referring physician for prescription. Bring a list of all current medications. Bring one adult family member or friend with you to drive you home, as you will be unable to drive for 48 hours after the procedure. Due to limited space and patient privacy, only one (1) visitor is permitted with the patient while they are recovering in the recovery area. No children under the age of 14 years will be allowed in recovery area. Please park in the Hospital Garage via [address] from either [address] or [email or web address]. Bring your parking ticket with you to be validated, only one parking ticket may be validated per patient. There may be a possibility of hospital admission or late evening discharge; therefore, bring leisure reading and an overnight bag. On the day of your procedure, come directly to the Electrophysiology Lab nurse receptionist desk, located on the 6th floor of [facility] ([phone] You will be escorted to the Cardiac Cath/EP recovery room. Please call the Electrophysiology Lab at if you have any questions regarding your procedure. Date of Procedure: 09/21/23 Time of Procedure: Need arrival time Vendors Needed: TBD Vendors Verified: Anesthesia Verified: TBD Anesthesia Consent: Drug Allergies? No Labs Verified? yes Note in Chart and any Important Info needed for the case: Patient needs to hold Jardiance 3 days prior, metformin 2 days prior Instructions given to patient: yes Patient provided with preferred teaching of verbal information on 09/14/23. Shows readiness to learn. Verbal instruction teaching provided. Individual is able to read and verbalizes understanding of teaching provided. [facility] 2023-09-10 08:50:17 Lab orders in. [facility] 2023-09-10 08:42:[address] Jones for pre op lab orders. [facility] 2023-09-10 08:30:00 Images from the original note were not included. Venipuncture collection performed by clean technique on the left anticubitus. Total of 1 attempts were made. Slight pressure and a bandage/dressing were applied to the site(s). The patient experienced no complications. The following specimens were processed according to instructions and sent to [facility] laboratories per lab order on 09/10/2023 : LT BLUE 1 SST 1 RED LAV 1 PPT DK GREEN (LiHep) DK GREEN (SodH) AVINA DK BLUE (K2) DK BLUE (S) ACD Blood Culture NIPT/NTD [facility] 2023-08-24 08:49:43 Spoke with patients daughter and appt. For next week given. Verbalized understanding and agreed. [facility] Antonia Savage LVN [facility] 2023-08-24 08:45:58 Justin Parekh is a 78 year old female Patient EC returning call Please call at [phone] Warm transferred to clinic nurse ANICAL TECHNOLOGIST Indiana Stallings [facility] 2023-08-24 08:43:29 Tried to return call, message left. [facility] 2023-08-24 07:40:42 Electrograms reviewed, consistent with sinus pauses. Please schedule patient for EP follow up in my clinic next week. OK to overbook. Thank You, Robert Sykes MD ANICAL TECHNOLOGIST IM-CLINICAL CARDIAC ELECTROPHYSIOLOGY STAFF [facility] 2023-08-23 16:15:30 Images from the original note were not included. Multiple pauses seen on ILR. Spoke to pt's daughter and she has been getting dizzy spells and per daughter her legs are swollen. Next EPMD appt on [facility] is in 05/15. EMS/ED precautions given and daughter stated will call Provider today. She is amenable to come in earlier for EP appt. Will notify EPMD. ANNA Rubio RN [facility] 2023-07-16 17:47:49 Addended by: NAOMY BRAVO on: 07/16/2023 05:47 PM Modules accepted: Orders [facility] 2023-07-16 17:47:26 Prescription refills sent today. [facility] 2023-07-13 13:23:42 Received refill request for: Medication: Requested Prescriptions Pending Prescriptions Disp Refills lisinopriL 10 mg tablet 180 tablet 2 Sig: Take 1 tablet by mouth in the morning and 1 tablet in the evening. Requested Prescriptions Pending Prescriptions Disp Refills lisinopriL 10 mg tablet 180 tablet 2 Sig: Take 1 tablet by mouth in the morning and 1 tablet in the evening. Cardiovascular: ARTIE Inhibitors Passed - 07/13/2023 8:23 AM Passed - Valid encounter within last 12 months Recent Visits Date Type Provider Dept 06/29/23 Office Visit Naomy Bravo MD [facility] 05/17/23 Office Visit Stephanie Sykes MD [facility] 05/07/23 Office Visit Naga Lakhani MD [facility] 04/20/23 Office Visit Naomy Bravo MD [facility] 03/07/23 Office Visit Naomy Bravo MD [facility] 11/16/22 Office Visit Brandon Arias MD [facility] 10/13/22 Office Visit Naomy Bravo MD [facility] 08/24/22 Office Visit Naomy Bravo MD [facility] Showing recent visits within past 365 days and meeting all other requirements Future Appointments Date Type Provider Dept 11/02/23 Appointment Naomy Bravo MD [facility] 11/05/23 Appointment Naga Lakhani MD [facility] 05/15/24 Appointment Stephanie Sykes MD [facility] Showing future appointments within next 365 days and meeting all other requirements Passed - K in normal range and within 360 days K Date Value Ref Range Status 06/29/2023 5.0 3.5 - 5.0 mmol/L Final K+ Date Value Ref Range Status 07/04/2017 4.5 3.5 - 5.0 mmol/L Final Passed - Cr in normal range and within 360 days CREATININE Date Value Ref Range Status 06/29/2023 1.02 0.50 - 1.04 mg/dL Final Medication Last filled: 03/07/2023 Provider Note: HTN: Better controlled after increasing the antianginal medication. Currently on amlodipine 10 mg daily, recommend increasing the isosorbide from 90 mg daily to 120 mg daily. Patient had not received the prescription for 120 mg. He will be sent to the prescription. Continue the current dose of Lopressor at 50 twice daily. Limited by the bradycardia noted. Continue with lisinopril 10 mg twice daily. Recommended if the blood pressures getting lower, then we may have to cut down the lisinopril and keep her on antianginal medication. Agree with starting Jardiance 10 mg daily along with aspirin/Plavix. Recent Visits Date Type Provider Dept 06/29/23 Office Visit Naomy Bravo MD [facility] 05/17/23 Office Visit Stephanie Sykes MD [facility] 05/07/23 Office Visit Naga Lakhani MD [facility] 04/20/23 Office Visit Naomy Bravo MD [facility] 03/07/23 Office Visit Naomy Bravo MD [facility] 11/16/22 Office Visit Brandon Arias MD [facility] 10/13/22 Office Visit Naomy Bravo MD [facility] 08/24/22 Office Visit Naomy Bravo MD [facility] Showing recent visits within past 365 days and meeting all other requirements Future Appointments Date Type Provider Dept 11/02/23 Appointment Naomy Bravo MD [facility] 11/05/23 Appointment Naga Lakhani MD [facility] 05/15/24 Appointment Stephanie Sykes MD [facility] Showing future appointments within next 365 days and meeting all other requirements Refilled approval sent to: Pharmacy: [id number] - [place] - [address] AT [facility] [place] [facility] [place] [address] [id number] Refilled based on current protocol and last office visit note. 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 Visit on 06/29/2023 Component Date Value WBC 06/29/2023 8.54 RBC 06/29/2023 3.63 (L) HGB 06/29/2023 10.9 (L) HCT 06/29/2023 34.9 (L) MCV 06/29/2023 96.1 (H) MCH 06/29/2023 30.0 MCHC 06/29/2023 31.2 (L) RDW-SD 06/29/2023 49.7 RDW-CV 06/29/2023 14.2 PLT 06/29/2023 223 MPV 06/29/2023 10.1 NRBC/100 WBC 06/29/2023 0.0 NRBC x10 3 06/29/2023 <0.01 GRAN MAT (NEUT) % 06/29/2023 66.1 IMM GRAN % 06/29/2023 0.20 LYMPH % 06/29/2023 24.0 MONO % 06/29/2023 7.5 EOS % 06/29/2023 1.4 BASO % 06/29/2023 0.8 GRAN MAT x10 3 (ANC) 06/29/2023 5.64 IMM GRAN x10 3 06/29/2023 <0.03 LYMPH x10 3 06/29/2023 2.05 MONO x10 3 06/29/2023 0.64 EOS x10 3 06/29/2023 0.12 BASO x10 3 06/29/2023 0.07 NT-proBNP 06/29/2023 316 NA 06/29/2023 141 K 06/29/2023 5.0 CL 06/29/2023 109 (H) CO2 TOTAL 06/29/2023 24 AGAP 06/29/2023 8 BUN 06/29/2023 27 (H) GLUCOSE 06/29/2023 122 (H) CREATININE 06/29/2023 1.02 CALCIUM 06/29/2023 9.5 eGFR 06/29/2023 55.7 Admission on 05/18/2023, Discharged on 05/19/2023 Component Date Value WBC 05/18/2023 7.21 RBC 05/18/2023 3.39 (L) HGB 05/18/2023 10.3 (L) HCT 05/18/2023 31.5 (L) MCV 05/18/2023 92.9 MCH 05/18/2023 30.4 MCHC 05/18/2023 32.7 RDW-SD 05/18/2023 47.6 RDW-CV 05/18/2023 14.0 PLT 05/18/2023 216 MPV 05/18/2023 9.8 NRBC/100 WBC 05/18/2023 0.0 NRBC x10 3 05/18/2023 <0.01 GRAN MAT (NEUT) % 05/18/2023 68.9 IMM GRAN % 05/18/2023 0.30 LYMPH % 05/18/2023 21.6 MONO % 05/18/2023 7.2 EOS % 05/18/2023 1.2 BASO % 05/18/2023 0.8 GRAN MAT x10 3 (ANC) 05/18/2023 4.96 IMM GRAN x10 3 05/18/2023 <0.03 LYMPH x10 3 05/18/2023 1.56 MONO x10 3 05/18/2023 0.52 EOS x10 3 05/18/2023 0.09 BASO x10 3 05/18/2023 0.06 NA 05/18/2023 139 K 05/18/2023 5.0 CL 05/18/2023 107 CO2 TOTAL 05/18/2023 18 (L) AGAP 05/18/2023 14 BUN 05/18/2023 31 (H) GLUCOSE 05/18/2023 171 (H) CREATININE 05/18/2023 1.00 CALCIUM 05/18/2023 8.9 eGFR 05/18/2023 53.3 TROPONIN I 05/18/2023 0.000 NT-proBNP 05/18/2023 244 POCT GLU 05/18/2023 155 (H) VIT D 25OH 05/18/2023 44 VIT B12 05/18/2023 216 (L) VIT B6 05/19/2023 23.5 Vitamin B1, Whole Blood 05/18/2023 123 IRON 05/18/2023 48 (L) TIBC 05/18/2023 359 % FE SAT 05/18/2023 13 (L) TROPONIN I 05/18/2023 0.003 TSH 05/19/2023 1.30 POCT GLU 05/18/2023 162 (H) NA 05/19/2023 139 K 05/19/2023 4.2 CL 05/19/2023 109 (H) CO2 TOTAL 05/19/2023 22 (L) AGAP 05/19/2023 8 BUN 05/19/2023 26 (H) GLUCOSE 05/19/2023 108 CREATININE 05/19/2023 0.85 CALCIUM 05/19/2023 9.2 eGFR 05/19/2023 64.4 MAGNESIUM 05/19/2023 2.0 POCT GLU 05/19/2023 123 (H) ANICAL TECHNOLOGIST Deloris Carroll [facility] 2023-04-10 17:17:08 Formatting of this n ote might be different from the original. Problem: Glucose control Goal: Glucose level within specified parameters 04/10/20231716 by Susan Zelaya RN Outcome: Adequate for discharge 04/10/20231710 by Susan Zelaya RN Outcome: Progressing as expected 04/10/2023 1239 by Susan Zelaya RN Outcome: Progressing as expected Problem: Cardiac Output - Decreased Goal: Cardiac output within specified parameters 04/10/20231716 by Susan Zelaya RN Outcome: Adequate for discharge 04/10/2023 171 by Susan Zelaya RN Outcome: Progressing as expected 04/10/2023 1239 by Susan Zelaya RN Outcome: Progressing as expected Goal: Absence of signs and symptoms of decreased cardiac output 04/10/20231716 by Susan Zelaya RN Outcome: Adequate for discharge 04/10/20231710 by Susan Zelaya RN Outcome: Progressing as expected 04/10/2023 1239 by Susan Zelaya RN Outcome: Progressing as expected Problem: Bleeding, Risk of Goal: Absence of impaired coagulation signs and symptoms 04/10/20231716 by Susan Zelaya RN Outcome: Adequate for discharge 04/10/2023 171 by Susan Zelaya RN Outcome: Progressing as expected 04/10/2023 1239 by Susan Zelaya RN Outcome: Progressing as expected Goal: Absence of active bleeding 04/10/2023 1717 by Susan Zelaya RN Outcome: Adequate for discharge 04/10/2023 1711 by Susan Zelaya RN Outcome: Progressing as expected 04/10/2023 1239 by Susan Zelaya RN Outcome: Progressing as expected Susan Zelaya RN [facility] 2023-04-10 17:11:47 Formatting of this n ote might be different from the original. Problem: Glucose control Goal: Glucose level within specified parameters 04/10/2023 1711 by Susan Zelaya RN Outcome: Progressing as expected 04/10/2023 1239 by Susan Zelaya RN Outcome: Progressing as expected Problem: Cardiac Output - Decreased Goal: Cardiac output within specified parameters 04/10/2023 1711 by Susan Zelaya RN Outcome: Progressing as expected 04/10/2023 1239 by Susan Zelaya RN Outcome: Progressing as expected Goal: Absence of signs and symptoms of decreased cardiac output 04/10/2023 1711 by Susan Zelaya RN Outcome: Progressing as expected 04/10/2023 1239 by Susan Zelaya RN Outcome: Progressing as expected Problem: Bleeding, Risk of Goal: Absence of impaired coagulation signs and symptoms 04/10/2023 171 by Susan Zelaya RN Outcome: Progressing as expected 04/10/2023 1239 by Susan Zelaya RN Outcome: Progressing as expected Goal: Absence of active bleeding 04/10/2023 1711 by Susan Zelaya RN Outcome: Progressing as expected 04/10/2023 1239 by Susan Zelaya RN Outcome: Progressing as expected [facility] 2023-04-10 12:39:10 Formatting of this n ote might be different from the original. Problem: Glucose control Goal: Glucose level within specified parameters Outcome: Progressing as expected Problem: Cardiac Output - Decreased Goal: Cardiac output within specified parameters Outcome: Progressing as expected Goal: Absence of signs and symptoms of decreased cardiac output Outcome: Progressing as expected Problem: Bleeding, Risk of Goal: Absence of impaired coagulation signs and symptoms Outcome: Progressing as expected Goal: Absence of active bleeding Outcome: Progressing as expected T [facility] 2023-04-10 06:37:11 Formatting of this n ote might be different from the original. Problem: Glucose control Goal: Glucose level within specified parameters Outcome: Progressing as expected Adrián Rosales RN [facility] 2023-04-07 14:33:39 Formatting of this n ote might be different from the original. Problem: Discharge Planning Goal: Adequate for discharge Outcome: Adequate for discharge Goal: Effective communication Outcome: Adequate for discharge Problem: Falls, Risk of Goal: Absence of falls Outcome: Adequate for discharge Problem: Procedure Routine Goal: Absence of post-procedure complications Outcome: Adequate for discharge Goal: Knowledge of procedure Outcome: Adequate for discharge [facility] 2023-04-07 04:07:50 Formatting of this n ote might be different from the original. Problem: Discharge Planning Goal: Adequate for discharge [...] Knowledge of procedure Outcome: Progressing as expected Donn Bernard RN [facility] 2023-04-06 16:23:19 Formatting of this n ote might be different from the original. Problem: Discharge Planning Goal: Adequate for discharge [...] Knowledge of procedure Outcome: Progressing as expected [facility] 2023-04-04 11:11:51 Formatting of this n ote might be different from the original. [facility] CARDIAC CATH PRE-CALL INSTRUCTIONS Cardiac Cath Instructions were sent to patient via: Other telephone Your physician has determined that you need to undergo a(n) LHC procedure. Listed below are some instructions for you to follow prior to the procedure. Do not eat or drink anything after midnight the night before the procedure, except for enough water to take your medications if so directed. For Carotid stenting procedures, do not take blood pressure medications the morning prior to the procedure. For Carotid angiogram procedures, do not stop taking your blood pressure medications. Take all medications except do not take metformin (Glucophage) 2 days prior to the procedure and do not take insulin or furosemide (lasix) the day of the procedure. If you are on blood thinners stop taking them 5 days prior to the procedure, unless otherwise instructed. If you are allergic to iodine or shellfish, take pre-treatment medications as directed. Please call your referring physician for prescription. Bring a list of all current medications. Bring one adult family member or friend with you to drive you home, as you will be unable to drive for 48 hours after the procedure. Due to limited space and patient privacy, only one (1) visitor is permitted with the patient while they are recovering in the recovery area. No children under the age of 14 years will be allowed in recovery area. Please park in the Hospital Garage via [address] from either [address] or [address]. Bring your parking ticket with you to be validated, only one parking ticket may be validated per patient. There may be a possibility of hospital admission or late evening discharge; therefore, bring leisure reading and an overnight bag. On the day of your procedure, come directly to the Cardiac Dental Technology Advisor nurse receptionist desk, located on the 6th floor of [facility] ([phone] You will be escorted to the Cardiac Cath recovery room. Please call the Cardiac Dental Technology Advisor at if you have any questions regarding your procedure. Date of Procedure: 04/06/2023 Time of Procedure: 614 For peripheral procedures, have you had an JAREN or arterial duplex? not applicable For ASD/PFO procedures, have you had:Not Applicable Instructions given to patient: yes Family member provided with preferred teaching of verbal information on 04/04/2023. Shows readiness to learn. Verbal instruction teaching provided. Individual is able to read and verbalizes understanding of teaching provided. Susan Fitch RN [facility] 2023-04-01 17:18:47 Formatting of this n ote might be different from the original. Preangiogram labs within acceptable stable limits to proceed with coronary angiogram. We will await the findings of the coronary angiogram. I currently see that the A1c is mildly elevated compared to before. NT BP mildly elevated. Will monitor. Plan for coronary angiogram. Lipid panel at goal. CMP within acceptable stable limits. Mildly elevated creatinine 1.1. A1c elevated 7.1. Magnesium normal at 2.0, CBC within acceptable stable limits. [facility] 2023-03-30 10:15:00 Formatting of this n ote is different from the original. Images from the original note were not included. Venipuncture collection performed by clean technique on the left anticubitus. Total of 1 attempts were made. Slight pressure and a bandage/dressing were applied to the site(s). The patient experienced no complications. The following specimens were processed according to instructions and sent to [facility] laboratories per lab order on 03/30/2023: LT BLUE SST 1 RED LAV 2 PPT DK GREEN (LiHep) DK GREEN (SodH) AVINA DK BLUE (K2) DK BLUE (S) ACD Blood Culture NIPT/NTD [facility] 2023-03-30 08:58:08 Formatting of this n ote might be different from the original. Spoke with patient's daughter. She states that starting Sunday her mom has been more fatigued than usual. She states that on Sunday her mom had significant cramping in her fingers and toes lasting 20 minutes. She has been having these cramps periodically but was worse on Sunday. Patient has MANJARREZ as well. Her daughter states that her mom needs to sit down frequently during the day because she feels short of breath doing her normal activities. Patient is scheduled for a left heart cath on 04/06/23. She is going to have her pre op labs done this morning. Her daughter states there her mom has not had any chest pain since her ER visit. Advised if she has chest pain she needs to go to ER. Routing to Dr. Bravo for any additional recommendations. Will also route to Dr. Mcdowell since Dr. Bravo not in clinic today. Charmaine Figueroa RN [facility] 2023-03-14 13:13:46 Formatting of this n ote might be different from the original. Called patient to schedule Left Heart Cath, with Dr. Lakhani. Spoke to pts' daughter, Anthony. She agreed to 04/06, lab appt made for 03/30. Dari Coyle [facility] 2023-03-06 10:02:12 Formatting of this n ote might be different from the original. Spoke with patient's daughter this morning. She states that she hasn't talked to her mom this am but she can see her on a monitor she is sitting on the couch at her home. She is going to check on her shortly. Notified her of Dr. Bravo's recommendations to increase the isosorbide dose to 60 mg daily. She has been scheduled to see Dr. Bravo tomorrow at 10:30. Charmaine Figueroa RN [facility] 2023-03-06 08:59:03 Formatting of this n ote might be different from the original. Patient presented to the ER yesterday for chest pain. Troponins x2 were negative. I was called by the ER physician. There were no beds in [facility]. Hence due to negative troponins x2, patient was discharged in the hospital. Please make follow-up with me either on this week at patient convenience. Acceptable to overbook except on a.m. Please ask how she is feeling now. In the interim please ask her to increase isosorbide from 30 mg to 60 mg daily. Continue with aspirin/Plavix without interruption interruption. Please ask how her blood pressure is currently doing at home. [facility] 2023-03-06 02:33:27 Formatting of this n ote might be different from the original. Pt given printed and verbal discharge instructions regarding chest pain, encouraged hydration, Pt verbalized understanding of instructions,pt encouraged to follow up with pcp Advised to seek medical attention for new/prolonged/worsening of symptoms, No adverse reaction to meds given in ER noted upon discharge PIV d'cd, dressing to site, catheter in tact. Awake, alert oriented, resp reg unlabored, skin w/d, pt leaving in no apparent distress, Kathy Cortez RN [facility] 2023-03-05 22:54:00 Formatting of this n ote might be different from the original. Patient came in with complaints of left-sided chest pain that radiates to her left arm since 9PM. Edda Juárez RN [facility] 2023-02-12 14:28:13 Formatting of this n ote might be different from the original. Pt discharged with diagnosis of left foot pain/bruise. Printed and verbal instructions reviewed with and given to patient. No new prescriptions given for this visit. Pt verbalized understanding of teaching and recommended follow-up. Denies questions or concerns at this time. Pt ambulatory at discharge. Appears in no apparent distress. No ataxia noted. Accompanied by daughter. Yanely Peralta RN [facility] 2023-02-12 12:31:04 Formatting of this n ote might be different from the original. Patient to ED for pain to left foot after dropping a phone on it last Sunday. There is bruising and swelling. Patient is ambulatory. Jeff Nelson RN [facility] 2023-02-12 12:22:00 Formatting of this n ote is different from the original. [facility] Emergency Department Note Patient Name: Justin Parekh Date of : 1945 78 year old female Treatment Room: [place] [address] Primary Care Physician: Cydney Strickland Patient Escorted by: Family [5] Mode of Arrival: Personal means [1] EMS Treatment Prior to ED Arrival: Travel and Exposure Screening: Symptoms Does patient have any of these symptoms?: (not recorded) Exposure Screening Has patient had contact with someone with a communicable disease in the last month?: (not recorded) Diseases exposed to:: (not recorded) Is Patient ?: (not recorded) Exposure Date: (not recorded) Chief Complaint: Chief Complaint Patient presents with Foot Pain History of Present Illness: HPI 78yo F with CHF, DM, HTN presents today with left foot pain. She states she dropped her phone on her top of her foot on Sunday and she noticed a large bruise. She has been walking on it and hasn't taken any pain medications. She denies any other problems she states [...] N/A 07/02/2017 Surgeon: Mona Rondon MD; Location: [facility] ENDOSCOPIC VEIN HARVEST (SHX) Left 07/02/2017 Surgeon: Mona Rondon MD; Location: [facility] EYE SURGERY Bilateral 2016 cataract removal Review of Systems: Review of Systems Constitutional: Negative for activity change, diaphoresis, fatigue, fever and weight gain. HENT: Negative for congestion, ear pain, rhinorrhea, sore throat, tinnitus and trouble swallowing. Eyes: Negative for discharge and visual disturbance. Respiratory: Negative for cough and chest tightness. Breasts: Negative for pain. Cardiovascular: Negative for chest pain and palpitations. Gastrointestinal: Negative for abdominal pain, nausea and vomiting. Genitourinary: Negative for dysuria, hematuria and difficulty urinating. Musculoskeletal: Negative for joint swelling. Skin: Negative for rash and wound. Neurological: Negative for dizziness and headaches. Psychiatric/Behavioral: Negative for agitation and confusion. The patient is not nervous/anxious. Hematological: Bruises/bleeds easily (over dorsum of left foot). Endocrine: Negative for weight [...] Rate and Rhythm: Normal rate and regular rhythm. Heart sounds: Normal heart sounds. No murmur heard. Pulmonary: Effort: Pulmonary effort is normal. Breath sounds: Normal breath sounds. No stridor. Abdominal: General: Bowel sounds are normal. Palpations: Abdomen is soft. Tenderness: There is no abdominal tenderness. Musculoskeletal: General: Signs of injury (large bruise over dorsum of left foot) present. Normal range of motion. Cervical back: Neck supple. Comments: Patient walks easily on both feet without limping or other problems Point tenderness over 3rd metatarsal otherwise no complaints Skin: General: Skin is warm and dry. Capillary Refill: Capillary refill takes less than 2 seconds. Neurological: Mental Status: She is alert and oriented to person, place, and time. Cranial Nerves: No cranial nerve deficit. Psychiatric: Behavior: Behavior normal. Radiology: XR FOOT 3+ VW LEFT Preliminary Result EXAM: XR FOOT 3+ VW LEFT HISTORY: 78 years-old Female with foot pain after dropping phone on foot. COMPARISON: None. FINDINGS: Radiographs of the left foot demonstrate avulsion fracture of the distal first metatarsal. An osseous fragment between the first and second digit metatarsal cyst present. The Lisfranc joint is preserved. Soft tissue swelling over the dorsal foot is present. Calcaneal enthesophytes are present. IMPRESSION Age-indeterminate avulsion fracture of the distal first metatarsal. A tiny osseous body between the first and second metatarsals is suspicious for avulsion injury. Preliminary Report Dictated by Resident: Timi Sun Lab Results: Lab Results - No data to display EKG: If EKG completed, see Procedure Note. Orders and Treatments: Orders Placed This Encounter Procedures XR FOOT 3+ VW LEFT No orders of the defined types were placed in this encounter. First Provider Eval: ED Events Date/Time Event User Comments 02/12/23 1242 Medical Screening Begins MARY MEJIA MD -- 02/12/23 1242 First Provider Evaluation MARY MEJIA MD -- ED COURSE Diagnosis/Impression as of 02/12/23 1427 Left foot pain Bruise Procedures: Procedures MDM: Medical Decision Making XR done to r/o fracture, viewed with calcification of arteries and no fracture noted in area of concern Given normal gait, will discharge home with reassurance. EDIT: when foot xray read, read as small avulsion fracture of 1st metatarsal. Given no ROM issues or weight bearing issues and patient has already left, this would NOT change my management. Will attempt to call patient to inform her of read change. Problems Addressed: Bruise: acute illness or injury Left foot pain: acute illness or injury Amount and/or Complexity of Data Reviewed Radiology: ordered and independent interpretation performed. Details: no obvious fracture Risk OTC drugs. Flowsheet Documentation: Scoring Tools: No data recorded Disposition/Condition: ED Disposition ED Disposition Disch - Home Condition Stable Comment -- Discharge Medications: Patient's Medications START taking these medications No medications on file CONTINUE taking these medications which have NOT CHANGED SEDRICK CHEWABLE ASPIRIN ORAL Take 81 mg by mouth. Indications: takes 2 per day CHOLECALCIFEROL, VITAMIN D3, 50 MCG (2,000 UNIT) CAPSULE Take 2,000 [...] day for 90 IBUPROFEN 800 MG TABLET Take 1 tablet by mouth every 8 (eight) hours as needed. ISOSORBIDE MONONITRATE 30 MG 24 HR TABLET Take 1 tablet by mouth in the morning. LISINOPRIL 10 MG TABLET Take 0.5 tablets by mouth in the morning. METFORMIN (GLUCOPHAGE) 500 MG TABLET Take 1,000 mg by mouth 2 (two) times daily with meals. METOPROLOL TARTRATE 50 MG TABLET Take 1 tablet by mouth in the morning and 1 tablet in the evening. Take with meals. ROSUVASTATIN 20 MG TABLET Take 1 tablet by mouth at bedtime. START taking Modified Medications as Prescribed No medications on file STOP taking these medications No medications on file Follow-up: Electronically signed by: Mary Mejia DO 02/12/23 1338 Mary Mejia DO 02/12/23 1427 Mary Mejia DO 02/12/23 1427 [facility]
[2024-05-22] MEDS ORDERED: HYDROCODONE/APAP 7.5/325 MG TAB ONE (21:34)
--- NOTE | 2024-05-22 22:24 | RAD REPORT ---
Procedure: Chest Single View HISTORY: Chest pain COMPARISON: 2021 FINDINGS: The lungs appear clear of acute infiltrate. No significant pleural effusion noted. The heart is mildly enlarged. Post surgical changes involve the chest. Pacemaker leads in place. IMPRESSION: No acute abnormality is displayed.
--- NOTE | 2024-05-22 22:25 | RAD REPORT ---
Exam:Shoulder Left 2+ Views HISTORY: Left shoulder pain FINDINGS: No fracture or dislocation seen. Moderate osteoarthritis AC joint with osteophytes and joint space narrowing. The humeral head is high riding which may indicate a chronic rotator cuff tear. Osteoporosis
--- NOTE | 2024-05-22 22:31 | RAD REPORT ---
EXAMINATION: UPPER EXTREMITY VENOUS UNILATE CLINICAL INDICATION: Left arm pain TECHNIQUE: Complete bilateral duplex sonography of the left upper extremity veins was performed. The examination included compression for vein patency, color Doppler imaging and flow augmentation in response to distal compression of the internal jugular,, subclavian, axillary, brachial, radial, ulna r, cephalic and basilic veins. .Grayscale, color and spectral analysis performed on all vessels COMPARISON: No prior exam. FINDINGS: Echogenic material consistent with thrombus is present within the left axillary vein. The vein is par tially compressible. The internal jugular, subclavian, brachial, basilic, cephalic, radial and ulnar veins are generally c ompressible and demonstrate augmentation. Color Doppler demonstrates good flow. IMPRESSION: Acute thrombus left axillary vein
[2024-05-22 22:37] LABS: PT Prothrombin Time 11.6 SECONDS (9.4-12.5); Protime INR 1.04
[2024-05-22 22:38] LABS: Absolute Basophils 0.1 K/uL (0-0.5); Absolute Eosinophils 0.2 K/uL (0-0.5); Absolute Lymphocytes (CBC) 2.1 K/uL (0.7-4.9); Absolute Monocytes 0.6 K/uL (0.1-1.3); Absolute Neutrophil 3.8 K/uL (1.8-8.0); Basophils % 1.1 % (0-1.3); Eosinophils % 2.6 % (0-4.4); Hematocrit 36.2 % (36.0-45.0); Hemoglobin 12.3 g/dL (12.0-15.0); Lymphocytes % 30.4 % (15.3-44.8); MCH 30.9 pg (27.0-35.0); MCHC 33.9 g/dL (32.0-36.0); MPV 7.9 fL (7.6-11.3); Monocytes % 9.6 % (3.3-12.3); Neutrophils % 56.3 % (41.7-73.7); Nucleated Red Blood Cells % 0.1 % (0-0); Platelets 204 thou/uL (152-406); RBC Red Blood Cell Count 3.98 M/uL (3.86-4.86); Red Cell Distribution Width 14.7 % (12.1-15.2)
[2024-05-22 22:54] LABS: Albumin 3.8 g/dL (3.4-5.0); Albumin/Globulin Ratio 1.1 (1.1-1.8); Anion Gap 9.5 mEq/L (5.0-15.0); Bilirubin Direct 0.2 mg/dL (0-0.2); Bilirubin Indirect, Calculated 0.9 mg/dL (0.2-0.8); Bilirubin Total 1.1 mg/dL (0.2-1.0); Globulin 3.6 g/dL (2.3-3.5); Magnesium 2.1 mg/dL (1.6-2.4); Potassium 4.5 mEq/L (3.5-5.1); Protein, Total 7.4 g/dL (6.4-8.2); Troponin High Sensitivity 6.3 pg/mL (<58.9)
--- NOTE | 2024-05-22 23:05 | ER ---
Nurse's Notes [facility] Name: Sherri Parekh Age: 79 yrs Sex: Female : 1945 Arrival Date: 05/22/2024 Time: 21:18 Bed 16 Private MD: Diagnosis: Acute embolism and thrombosis of left axillary vein Presentation: 05/22 21:20 Chief complaint: EMS states: left arm and left shoulder/armpit pain. Coronavirus kj2 screen: At this time, the client does not indicate any symptoms associated with coronavirus-19. Ebola Screen: No symptoms or risks identified at this time. Initial Sepsis Screen: Does the patient meet any 2 criteria? No. Patient's initial sepsis screen is negative. Does the patient have a suspected source of infection? No. Patient's initial sepsis screen is negative. Risk Assessment: Do you want to hurt yourself or someone else? Patient reports no desire to harm self or others. Onset of symptoms was May 21, 2024. 21:20 Method Of Arrival: EMS: [facility] kj2 21:20 Acuity: OTTO 3 kj2 Triage Assessment: 21:20 General: Appears in no apparent distress. Behavior is calm, cooperative. Pain: kj2 Complains of pain in left arm, left shoulder Pain currently is 5 out of 10 on a pain scale. Neuro: Level of Consciousness is awake, alert, obeys commands, Oriented to person, place, time. Cardiovascular: Patient's skin is warm and dry. Respiratory: Airway is patent Respiratory effort is even, unlabored. GI: No signs and/or symptoms were reported involving the gastrointestinal system. : No signs and/or symptoms were reported regarding the genitourinary system. Historical: - Allergies: 21:22 No Known Allergies; kj2 - Home Meds: 21:22 Farxiga Oral [Active]; lisinopril Oral once daily [Active]; Metformin Oral 2 times per kj2 day [Active]; Metoprolol Tartrate Oral 2 times per day [Active]; rosuvastatin Oral once daily [Active]; - PMHx: 21:24 CAD; Diabetes - NIDDM; High Cholesterol; Hypertension; kj2 - PSHx: 21:24 Coronary Angioplasty; Coronary artery bypass graft; kj2 - Immunization history:: Adult Immunizations up to date. - Infectious Disease History:: Denies. - Social history:: Smoking status: Patient denies any tobacco usage or history of. Screenin:29 [facility] ED Fall Risk Assessment (Adult) History of falling in the last 3 months, kj2 including since admission No falls in past 3 months (0 pts) Confusion or Disorientation No (0 pts) Intoxicated or Sedated No (0 pts) Impaired Gait No (0 pts) Mobility Assist Device Used No (0 pt) Altered Elimination No (0 pt) Score/Fall Risk Level 0 - 2 = Low Risk. Abuse screen: Denies threats or abuse. Denies injuries from another. Nutritional screening: No deficits noted. Tuberculosis screening: No symptoms or risk factors identified. Assessment: 21:28 General: SEE TRIAGE ASSESSMENT. kj2 Vital Signs: 21:25 BP 122 / 56; Pulse 76; Resp 18; Temp 98.2; Pulse Ox 99% on R/A; Weight 48.53 kg; Height kj2 4 ft. 9 in. ; 23:36 BP 118 / 58; Pulse 78; Resp 18; Temp 97.9; Pulse Ox 100% on R/A; kj2 21:25 Body Mass Index 23.15 (48.53 kg, 144.78 cm) kj2 ED Course: 21:18 Patient arrived in ED. sb4 21:19 Radha Perkins PA-C is PHCP. sb4 21:19 Joseph Mathews MD is Attending Physician. sb4 21:20 Jenn Marks, ALEC is Primary Nurse. kj2 21:25 Arm band placed on Patient placed in an exam room, on a stretcher. EKG completed in kj2 triage. Results shown to MD. 21:27 Triage completed. kj2 21:29 Patient has correct armband on for positive identification. Placed in gown. Bed in low kj2 position. Call light in reach. Adult w/ patient. Provided Education on: call light. 22:04 XRAY Chest (1 view) In Process Unspecified. EDMS 22:04 Shoulder Left (2 View) XRAY In Process Unspecified. EDMS 22:05 Inserted saline lock: 22 gauge in right hand, using aseptic technique. Blood collected. oe Flushed with 10 mL NS. 22:06 Troponin HS Sent. oe 22:06 PT-INR Sent. oe 22:06 NT PRO-BNP Sent. oe 22:06 Magnesium Sent. oe 22:06 LFT's Sent. oe 22:06 CBC with Diff Sent. oe 22:06 Basic Metabolic Panel Sent. oe 22:25 UPPER EXTREMITY VENOUS UNILATE In Process Unspecified. EDMS 23:31 EKG done, by ED staff, reviewed by Radha Perkins PA-C. oe 23:38 No provider procedures requiring assistance completed. IV discontinued, intact, kj2 bleeding controlled, No redness/swelling at site. Pressure dressing applied. Administered Medications: 21:35 Drug: Hydrocodone-Acetaminophen PO (7.5 mg-325 mg) 1 tabs PO once Route: PO; kj2 23:13 Follow up: Response: No adverse reaction; Pain is decreased kj2 23:03 CANCELLED (Physician Discretion): ns 0.9% 1000 ml IV at 1000 ml once; to be given as a sb4 bolus over 60 minutes 23:36 Drug: Eliquis PO 10 mg PO once Route: PO; kj2 23:36 Follow up: Response: No adverse reaction; Medication administered at discharge. kj2 Medication: 21:30 VIS not applicable for this client. kj2 Outcome: 23:05 Discharge ordered by MD. sb4 23:38 Patient left the ED. kj2 23:39 Discharged to home ambulatory, with family, kj2 23:39 Condition: stable 23:39 Discharge instructions given to patient, family, Instructed on discharge instructions, follow up and referral plans. medication usage, Demonstrated understanding of instructions, follow-up care, medications, Prescriptions given X 2, Signatures: Dispatcher [employer] EDHI SanchezKostas Sophia, PA-C PA-C sb4 Jenn Marks, RN RN kj2 Corrections: (The following items were deleted from the chart) 23:32 23:31 EKG done, by ED staff, oe eldon
--- NOTE | 2024-05-22 23:06 | EDPHYS ---
Physician Documentation [facility] Name: Sherri Parekh Age: 79 yrs Sex: Female : 1945 Arrival Date: 05/22/2024 Time: 21:18 Bed 16 Private MD: ED Physician Joseph Mathews HPI: 05/22 21:25 This 79 yrs old Female presents to ER via Unassigned with complaints of Arm sb4 Pain, Shoulder Pain. 21:28 Patient reports pain in her left arm that began this evening all of a sudden. States sb4 she has similar episode last night but was not as bad. Denies any known injury or prior issues with this arm. Denies any numbness or tingling. Cannot characterize the pain. Denies any chest pain or shortness of breath. Denies any known history of blood clots but states that she has "blockages "and is on blood thinners. Historical: - Allergies: 21:22 No Known Allergies; kj2 - Home Meds: 21:22 Farxiga Oral [Active]; lisinopril Oral once daily [Active]; Metformin Oral 2 times per kj2 day [Active]; Metoprolol Tartrate Oral 2 times per day [Active]; rosuvastatin Oral once daily [Active]; - PMHx: 21:24 CAD; Diabetes - NIDDM; High Cholesterol; Hypertension; kj2 - PSHx: 21:24 Coronary Angioplasty; Coronary artery bypass graft; kj2 - Immunization history:: Adult Immunizations up to date. - Infectious Disease History:: Denies. - Social history:: Smoking status: Patient denies any tobacco usage or history of. ROS: 21:28 Constitutional: Negative for fever, chills, and weight loss, sb4 21:28 MS/extremity: Positive for pain, of the left arm, 21:28 All other systems are negative, Exam: 21:30 Constitutional: This is a well developed, well nourished patient who is awake, alert, sb4 and in no acute distress. Head/Face: Normocephalic, atraumatic. Eyes: Extra-ocular motions intact. Periorbital areas with no swelling, redness, or edema. ENT: Mucous membranes moist. Cardiovascular: Regular rate and rhythm with a normal S1 and S2. Respiratory: No increased work of breathing, no retractions or nasal flaring. Abdomen/GI: Soft, non-tender, no distension. Skin: Warm, dry with normal turgor. Normal color with no rashes, no lesions, and no evidence of cellulitis. 21:30 Musculoskeletal/extremity: ROM: intact in all extremities, Circulation is intact in all extremities. Pulses: are normal with no appreciated deficits, Sensation intact. Pain with palpation in left axilla. Vital Signs: 21:25 BP 122 / 56; Pulse 76; Resp 18; Temp 98.2; Pulse Ox 99% on R/A; Weight 48.53 kg; Height kj2 4 ft. 9 in. ; 23:36 BP 118 / 58; Pulse 78; Resp 18; Temp 97.9; Pulse Ox 100% on R/A; kj2 21:25 Body Mass Index 23.15 (48.53 kg, 144.78 cm) kj2 MDM: 21:22 Medical Screening Exam initiated sb4 23:04 Data reviewed: vital signs, nurses notes, EMS record, lab test result(s), EKG, sb4 radiologic studies, and as a result, I will discharge patient. Counseling: I had a detailed discussion with the patient and/or guardian regarding the historical points, exam findings, and any diagnostic results supporting the discharge/admit diagnosis, lab results, radiology results, to return to the emergency department if symptoms worsen or persist or if there are any questions or concerns that arise at home. ED course: confirmed with daughter that patient is not on blood thinners, but 81 mg aspirin and 75 mg plavix. 05/22 21:20 Order name: Basic Metabolic Panel; Complete Time: 22:54 sb4 05/22 21:20 Order name: CBC with Diff; Complete Time: 22:47 sb4 05/22 21:20 Order name: LFT's; Complete Time: 22:54 sb4 05/22 21:20 Order name: Magnesium; Complete Time: 22:54 sb4 05/22 21:20 Order name: NT PRO-BNP; Complete Time: 22:54 sb4 05/22 21:20 Order name: PT-INR; Complete Time: 22:38 sb4 05/22 21:20 Order name: Troponin HS; Complete Time: 22:54 sb4 05/22 21:20 Order name: XRAY Chest (1 view); Complete Time: 22:30 sb4 05/22 21:20 Order name: Shoulder Left (2 View) XRAY; Complete Time: 22:30 sb4 05/22 21:24 Order name: UPPER EXTREMITY VENOUS UNILATE; Complete Time: 22:34 EDMS 05/22 21:20 Order name: Cardiac monitoring; Complete Time: 23:36 sb4 05/22 21:20 Order name: EKG - Nurse/Tech; Complete Time: 23:31 sb4 05/22 21:20 Order name: IV Saline Lock; Complete Time: 22:06 sb4 05/22 21:20 Order name: Labs collected and sent; Complete Time: 22:06 sb4 05/22 21:20 Order name: O2 Per Protocol; Complete Time: 23:13 sb4 05/22 21:20 Order name: O2 Sat Monitoring; Complete Time: 23:13 sb4 EC:29 Rate is 63 beats/min. Rhythm is regular, Normal Sinus Rhythm. ID interval is normal at sb4 134 msec. QRS interval is normal at 74 msec. QT interval is normal at 434 msec. No Q waves. T waves are Normal. No ST changes noted. Clinical impression: Normal ECG and No evidence of ischemia. Interpreted by me. Reviewed by me. Administered Medications: 21:35 Drug: Hydrocodone-Acetaminophen PO (7.5 mg-325 mg) 1 tabs PO once Route: PO; kj2 23:13 Follow up: Response: No adverse reaction; Pain is decreased kj2 23:03 CANCELLED (Physician Discretion): ns 0.9% 1000 ml IV at 1000 ml once; to be given as a sb4 bolus over 60 minutes 23:36 Drug: Eliquis PO 10 mg PO once Route: PO; kj2 23:36 Follow up: Response: No adverse reaction; Medication administered at discharge. kj2 Disposition: 05/23 00:52 Co-signature as Attending Physician, Joseph Mathews MD I reviewed the patient's care rt provided by the Advanced Practice Provider and agree with the diagnosis and treatment plan. Disposition Summary: 05/22/24 23:05 Discharge Ordered Notes: Location: Home sb4 Problem: new sb4 Symptoms: have improved sb4 Condition: Stable sb4 Diagnosis - Acute embolism and thrombosis of left axillary vein sb4 Followup: sb4 - With: Private Physician - When: 2 - 3 days - Reason: Recheck today's complaints, Re-evaluation by your physician Discharge Instructions: - Discharge Summary Sheet sb4 - Deep Vein Thrombosis sb4 Forms: - Prescription Opioid Use sb4 - Patient Portal Instructions sb4 - Leadership Thank You Letter sb4 Prescriptions: - Eliquis DVT-PE Treat 30D Start 5 mg (74 tabs) Oral Tablet, Dose Pack - take 5 milligram ORAL route per package directions; 1 Pack; Refills: 0, Product sb4 Selection Permitted - Tramadol 50 mg Oral Tablet - take 1 tablet ORAL route every 8 hours as needed; 12 tablet; Refills: 0, sb4 Product Selection Permitted Signatures: Dispatcher [employer] EDMS Radha Perkins PA-C PA-C sb4 Joseph Mathews MD MD rt Jenn Marks RN RN kj2 Corrections: (The following items were deleted from the chart) 05/22 21:21 21:20 BASIC METABOLIC PANEL+C.LAB.BRZ ordered. EDAZ EDAZ 21:21 21:20 CBC+H.LAB.BRZ ordered. EDAZ EDAZ 21:21 21:20 HEPATIC FUNCTION+C.LAB.BRZ ordered. EDAZ EDAZ 21:21 21:20 MAGNESIUM+C.LAB.BRZ ordered. EDAZ EDAZ 21:21 21:20 PROBNP+C.LAB.BRZ ordered. EDAZ EDAZ 21:21 21:20 PROTIME (+INR)+COAG.LAB.BRZ ordered. EDAZ EDAZ 21:21 21:20 Troponin High Sensitivity+C.LAB.BRZ ordered. EDAZ EDAZ 21:21 21:21 Chest Single View+RAD.RAD.BRZ ordered. EDAZ EDAZ 21:21 21:21 Shoulder Left 2 View+RAD.RAD.BRZ ordered. EDAZ EDAZ 21:21 21:21 Extremity Venous Uni Ltd+US.RAD.BRZ ordered. EDAZ EDMS 21:29 21:28 Patient reports pain in her left arm that began this evening all of a sudden. sb4 States she has similar episode last night but was not as bad. Denies any known injury or prior issues with this arm. Denies any numbness or tingling. Cannot characterize the pain. Denies any chest pain or shortness of breath. sb4 23:03 22:56 NS 0.9% IV 1000 ml IV at 1000 ml once; to be given as a bolus over 60 minutes sb4 ordered. sb4
[2024-05-22] MEDS ORDERED: APIXABAN 5 MG TABLET ONE (23:30)
[2024-05-23 01:02] VITALS: BP 118/58; TEMP 97.9; O2SAT 100
--- NOTE | 2024-05-26 12:22 | EKG ---
Test Date: 2024-05-22 Test Time: 23:26:13 Taxicab Driver: PAULINO MEASUREMENT RESULTS: Intervals: Rate: 63 NV: 134 QRSD: 74 QT: 434 QTc: 444 [place]: P: 67 NV: 134 QRS: 75 T: 64 INTERPRETIVE STATEMENTS: Normal sinus rhythm Normal ECG Compared to ECG 04/09/2023 22:04:43 No significant changes Electronically Signed On 05-26-24 12:17:19 RECORDING ENGINEER by Horacio Rae
== END 2024-05-22 23:38 | disposition home or self-care (01) ==
LOC: ER 21:18
DX: I82.622 Acute embolism and thrombosis of deep veins of left upper extremity (principal); E11.9 Type 2 diabetes mellitus without complications; I10 Essential (primary) hypertension; Z95.1 Presence of aortocoronary bypass graft
CPT/HCPCS: 36415; 71045; 80048; 80076; 83735; 83880; 84484; 85025; 85610; 93005; 93971; 99284

== ENCOUNTER 2024-11-26 09:08 | Emergency (ER) | payer OTHER ==
--- OUTSIDE RECORDS SUMMARY | 2024-11-26 09:26 | XMS REPORT | Continuity of Care Document ---
Author Name Unknown Address [address] [facility] [place] [address] [facility] [place] Address [address] [facility] [place] [address] Care Team Providers Care Commercial Collector Name Role Phone STRICKLANDCYDNEY Primary Care Physician Unavailab corina Strickland Count Includes [facility] Roxy Attending Clinician Unavailable MACRINA PAIGE Attending Clinician Unavailable LIANG THORPE Attending Clinician Unavailable LIANG THORPE Attending Clinician Unavailable NAOMY BRAVO K.HAviva Attending Clinician UnavailSTEPHANIE Kim Attending Clinician STEPHANIE Solares Attending Clinician Stephanie Solares MD Attending Clinician + Lawrence MORA, Naomy K.H. Attending Clinician +[phone] TIFFANI CHRISTIANSON Attending Clinician UnavailTIFFANI Martinez Attending Clinician UnavailLiang Yusuf MD Attending Clinician ERNESTINE MILES Attending Clinician Unavailable ERNESTINE MILES Attending Clinician Unavailable Trip PAK, Ernestine Gordon Attending Clinician + VERITO BURNS Attending Clinician Unavailable Gilles MORA, Verito Attending Clinician [phone] NAGA LAKHANI Attending Clinician Unavailable MICAELA HOWARD Attending Clinician Unavailab MICAELA Brantley Attending Clinician Unavailab Micaela Brantley DO Attending Clinician +[phone] Lawrence MORA, Naomy Crum Attending Clinician +[phone] [facility], [facility] Main Attending Clinician Unavailabl Naga Velazquez MD Attending Clinician +[phone] NILAM FLORES Attending Clinician Unavailable NILAM FLORES Attending Clinician Unavailable Doctor Unassigned, [place] Attending Clinician U navailable 2, [facility] Attending Clinician Unavailable Marly Hanley RN Attending Clinician Unavailab Noel Alcantar MD Attending Clinician +[phone] ABU-SARAH TAREQ Attending Clinician Unavaila rosario POWERS, TAREQ Attending Clinician Unavaila rosario Powers MD, Perla Attending Clinician [phone] YVONNE HAZEL Attending C linician Unavailable Isaiah Zacarias MD Attending Clinician +[phone] Yvonne Hazel MD Attendin g Clinician 1, [facility] Attending Clinician Unavailable Griffin Fernandes MD Attending Clinician + [phone] GRIFFIN FERNANDES Attending Clinician Unavailjosefina mccormick Unassigned, Cath/Ep Attending Clinician Unavaila ROMEO Briggs Attending Clinician Unavailable Romeo Mendieta MD Attending Clinician + MARY MEJIA Attending Clinician Unavailab Mary Narvaez DO Attending Clinician +[phone] BRANDON ARIAS Attending Clinician Unavailable Hugo MORA, Brandon Attending Clinician [phone] PARDEEP ACOSTA Attending Clinician Unavailable PARDEEP ACOSTA Attending Clinician Unavailable Devon Hatch MD Attending Clinician +[phone] Only, [facility] Test Attending Clinician Unavailable Argelia Mcdowell MD Attending Clinician +[phone] ARGELIA MCDOWELL Attending Clinician Unavailable WALTER GALLARDO Attending Clinician Unavailable Nicolas Franco MD Attending Clinician +[phone] Walter Gallardo MD Attending Clinician [phone] Yanely Zaidi Attending Clinician + [phone] RAE CANTOR Attending Clinician Unavail able Alexsander Jordan Attending Clinician + [phone] ALEXSANDER FALCON Attending Clinician Unavailable Emilia Oritz MD Attending Clinician +[phone] EMILIA ORTIZ Attending Clinician Unavailabl YEYO Walker Attending Clinician Unavail able YEYO GODFREY Attending Clinician Unavail able Tech, [facility] Cardio Fac Attending Clinician Unavail able 2, [facility] Room Attending Clinician Unava ilable Pc, [facility] Vascular Room 1 - Attending Clinician Un available MACRINA PAIGE Admitting Clinician Unavailable STEPHANIE SYKES Admitting Clinician Unav ailable LAWRENCE SENDIL K.H. Admitting Clinician Unavaila ERNESTINE Danielson Admitting Clinician Unavailable MICAELA HOWARD Admitting Clinician Unavailab LIANG Rey Admitting Clinician Unavailable NILAM FLORES Admitting Clinician Unavailable GIO, PERLA Admitting Clinician Unavaila Perla Hunt MD Admitting Clinician + [phone] ISAIAH ZACARIAS Admitting Clinician Unavailable Isaiah Zacarias MD Admitting Clinician +[phone] ROMEO MENDIETA Admitting Clinician Unavailable MARY MEJIA Admitting Clinician Unavailab BRANDON Cedeno Admitting Clinician Unavailable Brandon Arias MD Admitting Clinician +[phone] PARDEEP ACOSTA Admitting Clinician Unavailable Lawrence MORA, Sendil K.H. Admitting Clinician + [phone] WALTER GALLARDO Admitting Clinician Unavailable Walter Gallardo MD Admitting Clinician +[phone] ALEXSANDER FALCON Admitting Clinician Unavailable Payers Payer Name Policy Type Policy Number Effective Date Expirati on Date Source [facility] PPO [id number] 2020 00:00:00 [facility] MEDICARE 53 [id number] 2020 00:00:00 [facility] HUMAN MEDICARE ERS [id number] 2016 00:00:00 Problems Condition Name Condition Details Condition Category Status Onset Date Resolution Date Last Treatment Date Treating Clinician Comments Source Urge incontinen ce of urine Urge Incontinen ce of Urine Problem Active 2023-07 0-30 00:00: 00 [facility] Hyperglyce gopi due to type 2 diabetes mellitus Hyperglyce gopi Due to Type 2 Diabetes Mellitus Problem Active 2023-07 0-30 00:00: 00 [facility] Uterine leiomyoma Uterine Leiomyoma Problem Active 2023-07 0-30 00:00: 00 [facility] Type 2 diabetes mellitus Type 2 Diabetes Mellitus Problem Active 2023-07 0-30 00:00: 00 [facility] Hyperlipid emia Hyperlipid emia Problem Active 2023-07 0-30 00:00: 00 [facility] Female stress incontinen ce Female Stress Incontinen ce Problem Active 2023-07 0-30 00:00: 00 [facility] Atrophic vaginitis Atrophic Vaginitis Problem Active 2023-07 0-30 00:00: 00 [facility] Incontinen ce of feces Incontinen ce of Feces Problem Active 2023-07 0-30 00:00: 00 [facility] Peripheral arterial disease Peripheral arterial disease Disease Active 5-13 00:00: 00 [facility] Sinus pause Sinus pause Disease Active 2-08 00:00: 00 [facility] Chest pain, unspecifie d type Chest pain, unspecifie d type Disease Active 9-19 00:00: 00 [facility] Bilateral carotid artery stenosis Bilateral carotid artery stenosis Disease Active 8-16 00:00: 00 [facility] MANJARREZ (dyspnea on exertion) MANJARREZ (dyspnea on exertion) Disease Active 8-16 00:00: 00 [facility] PAD (periphera l artery disease) PAD (periphera l artery disease) Disease Active 8-16 00:00: 00 [facility] H/O carotid endarterec ramona H/O carotid endarterec ramona Disease Active 8-16 00:00: 00 [facility] Pericardia l effusion Pericardia l effusion Disease Active 816 00:00: 00 [facility] Syncope, unspecifie d syncope type Syncope, unspecifie d syncope type Disease Active 816 00:00: 00 [facility] Chest pain, cardiac Chest pain, cardiac Disease Active 8 00:00: 00 [facility] 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 Added automatic ally from request for surgery [id number] [facility] Abnormal nuclear stress test Abnormal nuclear stress test Disease Active 04-03 00:00: 00 Overview: Formattin g of this note might be different from the original. Added automatic ally from request for surgery [id number] [facility] Atheroscle rosis of [place] artery of left lower extremity with intermitte nt claudicati on Atheroscle rosis of [place] artery of left lower extremity with intermitte nt claudicati on Disease Active 03-23 00:00: 00 Overview: Formattin g of this note might be different from the original. Added automatic ally from request for surgery [id number] [facility] Atheroscle rosis of [place] artery of left lower extremity with intermitte nt claudicati on Atheroscle rosis of [place] artery of left lower extremity with intermitte nt claudicati on Disease Active 03-23 00:00: 00 Overview: Formattin g of this note might be different from the original. Added automatic ally from request for surgery [id number] [facility] Left arm pain Left arm pain Disease Active 2020-07 2-12 00:00: 00 [facility] Left arm numbness Left arm numbness Disease Active 2020-07 00:00: 00 [facility] Dyslipidem ia Dyslipidem ia Disease Active 03-30 00:00: 00 [facility] Chronic diastolic heart failure Chronic diastolic heart failure Disease Active 03-30 00:00: 00 [facility] Family history of premature CAD Family history of premature CAD Disease Active 03-30 00:00: 00 [facility] 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 artery disease involving coronary bypass graft of [place] heart without angina pectoris Disease Active 03-30 00:00: 00 [facility] Atypical chest pain Atypical chest pain Disease Active 03-29 00:00: 00 [facility] Dyspnea on exertion Dyspnea on exertion Disease Active 09-13 00:00: 00 [facility] Amnesia Memory changes Problem [facility] [id number] Coronary artery disease involving [place] coronary artery of [place] heart, unspecifie d whether angina present Problem [facility] Type II diabetes mellitus uncontroll ed Diabetes type 2, uncontroll ed Problem [facility] [id number] PAD (periphera l artery disease) Problem [facility] [id number] Other chronic pain Problem [facility] Incontinen ce of urine Incontinen ce of urine Problem [facility] Essential hypertensi on Benign essential HTN Problem [facility] [id number] Occlusion and stenosis of unspecifie d carotid artery Problem [facility] History of coronary artery bypass grafting History of coronary artery bypass graft Problem [facility] [id number] Frequency- urgency syndrome Problem [facility] Mixed hyperlipid emia Hyperlipid emia, mixed Problem [facility] [id number] Iron deficiency anemia, unspecifie d iron deficiency anemia type Problem [facility] [id number] Stress incontinen ce Problem [facility] [id number] Bilateral carotid artery disease, unspecifie d type Problem [facility] [id number] Anemia, unspecifie d type Problem [facility] [id number] Melanotic stools Problem [facility] [id number] Duodenitis Problem [facility] [id number] +5th digit eff 04/22/20*GE RD with esophagiti s Problem [facility] [id number] GERD without esophagiti s Problem [facility] [id number] Type 2 diabetes mellitus with diabetic chronic kidney disease Problem [facility] [id number] Osteoporos is, unspecifie d osteoporos is type, unspecifie d pathologic al fracture presence Problem [facility] [id number] Cardiac pacemaker Problem [facility] [id number] Continuous urine leakage Problem [facility] Bladder spasm Bladder spasm Problem [facility] CHF (congestiv e heart failure) CHF (congestiv e heart failure) Disease Resolve d 09-13 00:00: 00 2018-03-30 00:00:00 2018-03-30 08:02:27 [facility] Pleural effusion Pleural effusion Disease Resolve d 203 00:00: 00 2018-03-30 00:00:00 2018-03-30 08:02:30 [facility] Allergies, Adverse Reactions, Alerts Allergy Name Allergy Type Status Severity Reaction(s) Onset Date Inactive Date Treating Clinician Comments Source NO KNOWN ALLERGIE S Drug Class Active [facility] Social History Social Habit Start Date Stop Date Quantity Comments Source History SDOH Social Connections Get Together [facility] History SDOH Social Connections Yazdanism [facility] History SDOH Social Connections Membership [facility] History SDCA Social Connections Meetings [facility] ASSERTION Not [facility] History of Occupation [facility] History of Tobacco Use [facility] Sex Assigned At [facility] Alcoholic beverage intake 2024-09-28 00:00:00 2024-09-28 00:00:00 Current non-drinker of alcohol (finding) [facility] History of Social function 2024-09-15 00:00:00 2024-09-15 00:00:00 [facility] Alcohol intake 2023-09-18 00:00:00 2023-09-18 00:00:00 Current non-drinker of alcohol (finding) [facility] Exposure to SARS-CoV-2 (event) 2022-12-09 00:00:00 2022-12-19 06:19:00 Not sure [facility] History SDOH Alcohol Frequency 2022-07-12 00:00:00 2022-07-12 00:00:00 1 [facility] History SDOH Alcohol Std Drinks 2022-07-12 00:00:00 2022-07-12 00:00:00 0 [facility] History SDOH Alcohol Binge 2022-07-12 00:00:00 2022-07-12 00:00:00 1 [facility] History SDOH Social Connections Phone 2022-07-12 00:00:00 2022-07-12 00:00:00 5 [facility] History SDOH Social Connections Living 2022-07-12 00:00:00 2022-07-12 00:00:00 4 [facility] History SDOH Physical Activity DPW 2022-07-12 00:00:00 2022-07-12 00:00:00 7 [facility] History SDOH Physical Activity MPS 2022-07-12 00:00:00 2022-07-12 00:00:00 3 [facility] History SDOH Financial 2022-07-12 00:00:00 2022-07-12 00:00:00 1 [facility] History SDOH Food Worry 2022-07-12 00:00:00 2022-07-12 00:00:00 1 [facility] History SDOH Food Scarcity 2022-07-12 00:00:00 2022-07-12 00:00:00 1 [facility] History SDOH Transport Med 2022-07-12 00:00:00 2022-07-12 00:00:00 2 [facility] History SDOH Transport Non-Med 2022-07-12 00:00:00 2022-07-12 00:00:00 2 [facility] Education 2022-07-11 00:00:00 2022-07-11 00:00:00 7 [facility] Tobacco use and exposure 2022-03-23 00:00:00 2022-03-23 00:00:00 Smokeless tobacco non-user [facility] Smoking Status Start Date Stop Date Source Never smoked tobacco [facility] Medications Ordered Medication Name Filled Medication Name Start Date Stop Date Current Medication? Ordering Clinician Indication Dosage Frequency Signature (SIG) Comments Components Source lisinopriL 10 mg tablet 10-17 00:00: 00 Yes [id number] 10mg Take 1 tablet by mouth in the morning. [facility] isosorbide mononitrate 120 mg 24 hr tablet 10-13 00:00: 00 Yes [id number] 120mg TAKE 1 TABLET BY MOUTH IN THE MORNING [facility] ondansetron 4 mg tablet 09-28 00:00: 00 Yes [id number] 1 or 2 tablets every 8 hours as needed for nausea [facility] aspirin chewable tablet 324 mg 08-15 05:00: 00 08-15 04:22 :00 No [id number] 324mg 324 mg, Oral, ONCE, 1 dose, On Sun08/14/24 at 2300, Routine [facility] nitroglycer in 0.4 mg sublingual tablet 08-15 00:00: [id number] 1 tablet under the tongue every 5 (five) minutes as needed for Chest pain. [facility] MYRBETRIQ 50 mg tablet 08-07 00:00: 00 Yes 50mg 1 tablet. [facility] ELIQUIS DVT-PE TREAT 30D START 5 mg (74 tabs) 5 mg VTE starter pack 2023-07 00:00: 00 10-17 00:00 :00 No 5mg Take 1 tablet by mouth in the morning and 1 tablet in the evening. [facility] metoprolol succinate XL 50 mg 24 hr tablet 2023-07 00:00: 00 Yes [id number] 50mg Take 1 tablet by mouth in the morning and 1 tablet in the evening. [facility] clopidogrel 75 mg tablet Take 1 mg every day by oral route. clopidogrel 75 mg tablet Take 1 mg every day by oral route. 2023-07 00:00: 00 No 1mg Q1D clopidogre l 75 mg tablet Take 1 mg every day by oral route. [facility] isosorbide mononitrate 10 mg tablet Take 1 mg every day by oral route. isosorbide mononitrate 10 mg tablet Take 1 mg every day by oral route. 2023-07 00:00: 00 No 1mg Q1D isosorbide mononitrat e 10 mg tablet Take 1 mg every day by oral route. [facility] lisinopril 10 mg tablet Take 1 mg every day by oral route. lisinopril 10 mg tablet Take 1 mg every day by oral route. 2023-07 00:00: 00 No 1mg Q1D lisinopril 10 mg tablet Take 1 mg every day by oral route. [facility] metformin 500 mg tablet Take 2 mg twice a day by oral route. metformin 500 mg tablet Take 2 mg twice a day by oral route. 2023-07 00:00: 00 No 2mg BID metformin 500 mg tablet Take 2 mg twice a day by oral route. [facility] metoprolol succinate ER 50 mg tablet,exte nded release 24 hr Take 2 mg twice a day by oral route. metoprolol succinate ER 50 mg tablet,exte nded release 24 hr Take 2 mg twice a day by oral route. 2023-07 00:00: 00 No 2mg BID metoprolol succinate ER 50 mg tablet,ext ended release 24 hr Take 2 mg twice a day by oral route. [facility] rosuvastati n 20 mg tablet Take 1 mg every day by oral route. rosuvastati n 20 mg tablet Take 1 mg every day by oral route. 2023-07 00:00: 00 No 1mg Q1D rosuvastat in 20 mg tablet Take 1 mg every day by oral route. [facility] ketorolac (TORADOL) injection 15 mg 2023-07 18:15: 00 05-10 17:28 :00 No 15mg 15 mg, Slow IV Push, ONCE, 1 dose, On 05/10/24 at 1315, Routine [facility] famotidine (PEPCID (PF)) injection 20 mg 2023-07 17:30: 00 05-10 17:27 :00 No 20mg 20 mg, Slow IV Push, ONCE, 1 dose, On 05/10/24 at 1230, MARIELY [facility] aspirin chewable tablet 243 mg 2023-07 16:45: 00 05-10 16:08 :00 No 243mg 243 mg, Oral, ONCE, 1 dose, On 05/10/24 at 1145, Routine [facility] empaglifloz in (JARDIANCE) 10 mg tablet 2023-07 00:00: 00 Yes [id number] 10mg TAKE 1 TABLET BY MOUTH IN THE MORNING [facility] isosorbide mononitrate 120 mg 24 hr tablet 2023-07 00:00: 00 10-13 00:00 :00 No [id number] 120mg TAKE 1 TABLET BY MOUTH IN THE MORNING [facility] Fluconazole 150 MG Fluconazole 150 MG 04-18 00:00: 00 No 1{table t} Fluconazol e 150 MG Ketoconazol e 2 % Ketoconazol e 2 % 04-18 00:00: 00 No 1{appli cation} QD Ketoconazo le 2 % metFORMIN (GLUCOPHAGE ) 500 mg tablet 01-13 13:24: 32 Yes 1000mg Take 2 tablets by mouth in the morning and 2 tablets in the evening. Take with meals. [facility] rosuvastati n 20 mg tablet 01-13 13:24: 32 Yes 20mg Take 1 tablet by mouth at bedtime. [facility] Cholecalcif jose, Vitamin D3, 50 mcg (2,000 unit) capsule 01-13 13:24: 32 Yes 2000U Take 1 capsule by mouth. [facility] JARDIANCE 10 mg tablet 01-10 00:00: 00 05-08 00:00 :00 No [id number] 10mg TAKE 1 TABLET BY MOUTH IN THE MORNING. [facility] rosuvastati n 20 mg tablet 01-03 11:32: 51 Yes 20mg Take 1 tablet by mouth at bedtime. [facility] isosorbide mononitrate 120 mg 24 hr tablet 12-30 00:00: 00 Yes [id number] 120mg Take 1 tablet by mouth in the morning. [facility] HYDROcodone -acetaminop hen (NORCO 5) 5-325 mg tablet 1 tablet 12-27 17:31: 32 12-27 20:41 :22 No 1{tbl} [facility] traMADoL (ULTRAM) tablet 50 mg 12-27 17:31: 32 12-27 20:41 :22 No 50mg [facility] acetaminoph en (TYLENOL) tablet 650 mg 12-27 17:31: 32 12-27 20:41 :22 No 650mg [facility] lactated ringers IV infusion 1,000 mL 12-27 16:15: 00 12-27 20:41 :22 No 1000mL at 75 mL/hr, 1,000 mL, IV Infusion, CONTINUOUS , Starting on Sun12/28/23 at 1115, Until Sun12/28/23 at 1541, Routine, PACU [facility] HYDROmorpho ne (DILAUDID) injection 0.2 mg 12-27 16:08: 58 12-27 20:41 :22 No .2mg 0.2 mg, Slow IV Push, Q5MIN PRN, 10 doses, Starting on Sun12/28/23 at 1108, Until Sun12/28/23 at 1541, Routine, Pain (scale 7-10), PACU, Is this medication approved by a Faculty level provider? Yes, waitangi tribunal member approving Restricted medication : PACU RECOVERY [facility] FENTanyl PF (SUBLIMAZE (PF)) injection 25 mcg 12-27 16:08: 58 12-27 20:41 :22 No 25ug 25 mcg, Slow IV Push, Q5MIN PRN, 4 doses, Starting on Sun12/28/23 at 1108, Until Sun12/28/23 at 1541, Routine, Pain (scale 4-6), PACU [facility] proMETHazin e (PHENERGAN) 12.5 mg in NS 50 mL IV piggyback (CNR) 12-27 16:08: 58 12-27 20:41 :22 No 12.5mg 12.5 mg, IV Piggyback, at 200 mL/hr Administer over 15 Minutes, PRN, 1 dose, Starting on Sun12/28/23 at 1108, Until Sun12/28/23 at 1541, Routine, Nausea and Vomiting (N/V), PACU [facility] iodixanoL (VISIPAQUE 270-150 mL) injection 12-27 15:58: 00 12-27 16:13 :46 No PRN, Starting on Sun12/28/23 at 1058, Until Sun12/28/23 at 1113, Routine, Intra-op [facility] lidocaine 1% (PF) (XYLOCAINE) injection 12-27 15:57: 00 12-27 16:13 :46 No PRN, Starting on Sun12/28/23 at 1057, Until Sun12/28/23 at 1113, Routine, Intra-op [facility] metFORMIN (GLUCOPHAGE ) 500 mg tablet 12-27 13:41: 21 Yes 1000mg Take 2 tablets by mouth in the morning and 2 tablets in the evening. Take with meals. [facility] rosuvastati n 20 mg tablet 12-27 13:41: 21 Yes 20mg Take 1 tablet by mouth at bedtime. [facility] Cholecalcif jose, Vitamin D3, 50 mcg (2,000 unit) capsule 12-27 13:41: 21 Yes 2000U Take 1 capsule by mouth. [facility] metFORMIN (GLUCOPHAGE ) 500 mg tablet 12-26 13:25: 31 Yes 1000mg Take 2 tablets by mouth in the morning and 2 tablets in the evening. Take with meals. [facility] rosuvastati n 20 mg tablet 12-26 13:25: 31 Yes 20mg Take 1 tablet by mouth at bedtime. [facility] ISOSORBIDE MONONITRATE 120 mg 24 hr tablet 12-04 00:00: 00 12-29 00:00 :00 No [id number] 120mg TAKE 1 TABLET BY MOUTH IN THE MORNING [facility] iopamidol (ISOVUE 370-500 mL) injection 90 mL 11-08 18:15: 00 11-08 18:19 :00 No [id number] 90mL 90 mL, Intravenou s, ONCE, 1 dose, On Sun11/09/23 at 1330, Routine [facility] Cholecalcif jose, Vitamin D3, 50 mcg (2,000 unit) capsule 11-04 10:56: 00 Yes 2000U Take 1 capsule by mouth. [facility] empaglifloz in (JARDIANCE) 10 mg tablet 10-15 00:00: 00 Yes [id number] 10mg Take 1 tablet by mouth in the morning. [facility] lidocaine 1% (PF) (XYLOCAINE) injection 09-20 14:11: 34 09-20 15:19 :33 No ONCE INTRA PROCEDURE, Starting on Sun09/21/23 at 0811, Until Sun09/21/23 at 0919, Routine, CV Intraproce dure [facility] iodixanol (VISIPAQUE 320-100 mL) injection 09-20 13:46: 21 09-20 15:19 :33 No ONCE INTRA PROCEDURE, Starting on Sun09/21/23 at 0746, Until Sun09/21/23 at 0919, Routine, CV Intraproce dure [facility] metFORMIN (GLUCOPHAGE ) 500 mg tablet 09-20 11:47: 26 Yes 1000mg Take 2 tablets by mouth in the morning and 2 tablets in the evening. Take with meals. [facility] rosuvastati n 20 mg tablet 09-20 11:47: 26 Yes 20mg Take 1 tablet by mouth at bedtime. [facility] Cholecalcif jose, Vitamin D3, 50 mcg (2,000 unit) capsule 09-20 11:47: 26 Yes 2000U Take 1 capsule by mouth. [facility] rosuvastati n 20 mg tablet 08-30 10:15: 58 Yes 20mg Take 1 tablet by mouth at bedtime. [facility] FreeStyle Lancets - FreeStyle Lancets - 08-15 00:00: 00 No FreeStyle Lancets - FreeStyle Lite Test - FreeStyle Lite Test - 08-15 00:00: 00 No BID FreeStyle Lite Test - FreeStyle Control Solution - FreeStyle Control Solution - 08-15 00:00: 00 No FreeStyle Control Solution - FreeStyle Lite - FreeStyle Lite - 08-15 00:00: 00 No FreeStyle Lite - CLOPIDOGREL 75 mg tablet 08-02 00:00: 00 Yes [id number] 75mg TAKE 1 TABLET BY MOUTH IN THE MORNING [facility] empaglifloz in (JARDIANCE) 10 mg 2022-07 00:00: 00 Yes [id number] 10mg Take 1 tablet by mouth in the morning. [facility] amLODIPine 10 mg tablet 2022-07 00:00: 00 Yes [id number] 10mg Take 1 tablet by mouth every evening. [facility] lisinopriL 10 mg tablet 2022-07 00:00: 00 10-17 00:00 :00 No [id number] 10mg Take 1 tablet by mouth in the morning and 1 tablet in the evening. [facility] lisinopriL 10 mg tablet 2022-07 00:00: 00 Yes [id number] 10mg Take 1 tablet by mouth in the morning and 1 tablet in the evening. [facility] rosuvastati n 20 mg tablet 2022-07 10:45: 33 Yes 20mg Take 1 tablet by mouth at bedtime. [facility] isosorbide mononitrate 120 mg 24 hr tablet 2022-07 00:00: 00 Yes [id number] 120mg Take 1 tablet by mouth in the morning. [facility] isosorbide mononitrate 30 mg 24 hr tablet 2022-07 00:00: 00 06-29 00:00 :00 No [id number] 90mg Take 3 tablets by mouth in the morning. [facility] isosorbide mononitrate 30 mg 24 hr tablet 2022-07 00:00: 00 06-19 00:00 :00 No [id number] 90mg Take 3 tablets by mouth in the morning. [facility] isosorbide mononitrate (IMDUR) 24 hr tablet 120 mg 2022-07 14:00: 00 Yes 120mg 120 mg, Oral, DAILY, First dose (after last modificati on) on 05/20/23 at 0900, Until Discontinu ed, Routine [facility] aspirin (SEDRICK CHEWABLE ASPIRIN) 81 mg chewable tablet 2022-07 00:00: 00 Yes 81mg Take 1 tablet by mouth in the morning. Indication s: takes 2 per day [facility] isosorbide mononitrate 120 mg 24 hr tablet 2022-07 00:00: 00 05-22 00:00 :00 No [id number] 120mg Take 1 tablet by mouth in the morning. [facility] amLODIPine (NORVASC) tablet 10 mg 2022-07 22:00: 00 Yes 10mg 10 mg, Oral, QPM, First dose (after last modificati on) on 05/19/23 at 1700, Until Discontinu ed, Routine [facility] metFORMIN (GLUCOPHAGE ) 500 mg tablet 2022-07 17:14: 05 Yes 1000mg Take 2 tablets by mouth in the morning and 2 tablets in the evening. Take with meals. [facility] rosuvastati n 20 mg tablet 2022-07 17:14: 05 Yes 20mg Take 1 tablet by mouth at bedtime. [facility] Cholecalcif jose, Vitamin D3, 50 mcg (2,000 unit) capsule 2022-07 17:14: 05 Yes 2000U Take 1 capsule by mouth. [facility] enoxaparin (LOVENOX) injection 40 mg 2022-07 14:00: 00 Yes 40mg 40 mg, Subcutaneo us, DAILY, First dose on 05/19/23 at 0900, Until Discontinu ed, Routine [facility] clopidogreL (PLAVIX) 75 mg tablet 75 mg 2022-07 14:00: 00 Yes 75mg 75 mg, Oral, DAILY, First dose on 05/19/23 at 0900, Until Discontinu ed, Routine [facility] aspirin chewable tablet 81 mg 2022-07 14:00: 00 Yes 81mg 81 mg, Oral, DAILY, First dose on 05/19/23 at 0900, Until Discontinu ed [facility] SEDRICK CHEWABLE ASPIRIN ORAL 2022-07 13:53: 31 05-19 00:00 :00 No 81mg Take 81 mg by mouth. Indication s: takes 2 per day [facility] metoprolol tartrate (LOPRESSOR) tablet 50 mg 2022-07 13:00: 00 Yes 50mg 50 mg, Oral, BID MEALS, First dose on 05/19/23 at 0800, Until Discontinu ed, Routine [facility] Sliding Scale Insulin - Lispro (HumaLOG) 2022-07 02:00: 00 Yes Subcutaneo us, TID MEALS+HS, First dose on Sun05/18/23 at 2100, Until Discontinu ed, Routine [facility] rosuvastati n (CRESTOR) tablet 20 mg 2022-07 02:00: 00 Yes 20mg 20 mg, Oral, QHS, First dose on Sun05/18/23 at 2100, Until Discontinu ed, Routine [facility] lisinopriL (PRINIVIL,Z ESTRIL) tablet 10 mg 2022-07 01:00: 00 Yes 10mg 10 mg, Oral, BID, First dose on Sun05/18/23 at 2000, Until Discontinu ed, Routine [facility] ferrous sulfate 325 mg (65 mg iron) EC tablet 2022-07 00:00: 00 Yes [id number] 325mg Take 1 tablet by mouth every 48 (forty-eig ht) hours. [facility] nitroglycer in 0.4 mg sublingual tablet 2022-07 00:00: 00 08-15 00:00 :[id number] 1 tablet under the tongue every 5 (five) minutes as needed for Chest pain. [facility] amLODIPine 10 mg tablet 2022-07 00:00: 00 07-16 00:00 :00 No [id number] 10mg Take 1 tablet by mouth every evening. [facility] empaglifloz in (JARDIANCE) 10 mg 2022-07 00:00: 00 07-16 00:00 :00 No [id number] 10mg Take 1 tablet by mouth in the morning. [facility] dextrose 10% (D10W) bolus infusion 250 mL [...] blood glucose is < 80 mg/dL, repeat.
[facility] glucagon (GLUCAGEN DIAGNOSTIC KIT) injection 1 mg 2022-07 23:35: 14 Yes 1mg 1 mg, Intramuscu lar, PRN, Starting on Sun05/18/23 at 1835, Until Discontinu ed, MARIELY, Blood Glucose < or = 70 mg/dL and patient is NPO, unable to swallow or has mental changes. [facility] acetaminoph en (TYLENOL) tablet 650 mg 2022-07 23:31: 49 Yes 650mg 650 mg, Oral, Q6HPRN, Starting on Sun05/18/23 at 1831, Until Discontinu ed, Routine, Pain (scale 1-3) [facility] nitroglycer in (NITROSTAT) sublingual tablet 0.4 mg 2022-07 23:30: 42 Yes .4mg 0.4 mg, Sublingual , Q5MIN PRN, Starting on Sun05/18/23 at 1830, Until Discontinu ed, Routine, Chest pain [facility] aspirin chewable tablet 324 mg 2022-07 17:00: 00 05-18 16:27 :00 No 324mg 324 mg, Oral, ONCE, 1 dose, On Sun05/18/23 at 1200, Routine [facility] isosorbide mononitrate 30 mg 24 hr tablet 2022-07 00:00: 00 05-19 00:00 :00 No [id number] 90mg Take 3 tablets by mouth in the morning. [facility] metFORMIN (GLUCOPHAGE ) 500 mg tablet 2022-07 08:34: 36 Yes 1000mg Take 2 tablets by mouth in the morning and 2 tablets in the evening. Take with meals. [facility] SEDRICK CHEWABLE ASPIRIN ORAL 2022-07 08:34: 36 Yes 81mg Take 81 mg by mouth. Indication s: takes 2 per day [facility] rosuvastati n 20 mg tablet 2022-07 08:34: 36 Yes 20mg Take 1 tablet by mouth at bedtime. [facility] Cholecalcif jose, Vitamin D3, 50 mcg (2,000 unit) capsule 2022-07 08:34: 36 Yes 2000U Take 1 capsule by mouth. [facility] amLODIPine 2.5 mg tablet 2022-07 00:00: 00 05-19 00:00 :00 No 5mg Take 2 tablets by mouth every evening. [facility] SEDRICK CHEWABLE ASPIRIN ORAL 04-20 09:47: 02 Yes 81mg Take 81 mg by mouth. Indication s: takes 2 per day [facility] rosuvastati n 20 mg tablet 04-20 09:47: 02 Yes 20mg Take 1 tablet by mouth at bedtime. [facility] amLODIPine 2.5 mg tablet 04-20 00:00: 00 05-07 00:00 :00 No [id number] 2.5mg Take 1 tablet by mouth every evening. [facility] isosorbide mononitrate (IMDUR) 24 hr tablet 90 mg 04-11 14:00: 00 Yes 90mg 90 mg, Oral, DAILY, First dose (after last modificati on) on Sun04/11/23 at 0900, Until Discontinu ed, Routine [facility] rosuvastati n (CRESTOR) tablet 20 mg 04-11 02:00: 00 Yes 20mg 20 mg, Oral, QHS, First dose on Sun04/10/23 at 2100, Until Discontinu ed, Routine [facility] isosorbide mononitrate 30 mg 24 hr tablet 04-11 00:00: 00 05-17 00:00 :00 No [id number] 90mg Take 3 tablets by mouth in the morning. [facility] metFORMIN (GLUCOPHAGE ) 500 mg tablet 04-10 17:47: 38 Yes 1000mg Take 2 tablets by mouth in the morning and 2 tablets in the evening. Take with meals. [facility] SEDRICK CHEWABLE ASPIRIN ORAL 04-10 17:47: 38 Yes 81mg Take 81 mg by mouth. Indication s: takes 2 per day [facility] rosuvastati n 20 mg tablet 04-10 17:47: 38 Yes 20mg Take 1 tablet by mouth at bedtime. [facility] Cholecalcif jose, Vitamin D3, 50 mcg (2,000 unit) capsule 04-10 17:47: 38 Yes 2000U Take 1 capsule by mouth. [facility] isosorbide mononitrate (IMDUR) 24 hr tablet 30 mg 04-10 17:45: 00 04-10 22:04 :00 No 30mg 30 mg, Oral, ONCE, 1 dose, On Sun04/10/23 at 1245, Routine [facility] sulfur hexafluorid e microsphr (LUMASON) injection 5 mL 04-10 15:30: 00 04-10 15:30 :00 No [id number] 5mL 5 mL, Intravenou s, ONCE, 1 dose, On Sun04/10/23 at 1030, Routine
[place] tribunal member approving Restricted medication : ISAIAH ZACARIAS [facility] clopidogreL (PLAVIX) 75 mg tablet 75 mg 04-10 14:00: 00 Yes 75mg 75 mg, Oral, DAILY, First dose on Sun04/10/23 at 0900, Until Discontinu ed, Routine [facility] aspirin chewable tablet 81 mg 04-10 14:00: 00 Yes 81mg 81 mg, Oral, DAILY, First dose on Sun04/10/23 at 0900, Until Discontinu ed [facility] isosorbide mononitrate (IMDUR) 24 hr tablet 60 mg 04-10 14:00: 00 04-10 13:59 :54 No 60mg 60 mg, Oral, DAILY, First dose on Sun04/10/23 at 0900, Until Discontinu ed, Routine [facility] Sliding Scale Insulin - Lispro (HumaLOG) 04-10 13:00: 00 Yes Subcutaneo us, TID MEALS+HS, First dose on Sun04/10/23 at 0800, Until Discontinu ed, Routine [facility] metoprolol tartrate (LOPRESSOR) tablet 50 mg 04-10 13:00: 00 Yes 50mg 50 mg, Oral, BID MEALS, First dose on Sun04/10/23 at 0800, Until Discontinu ed, Routine [facility] lisinopriL (PRINIVIL,Z ESTRIL) tablet 10 mg 04-10 13:00: 00 Yes 10mg 10 mg, Oral, BID, First dose on Sun04/10/23 at 0800, Until Discontinu ed, Routine [facility] heparin 25,000 Units/250 mL (Premixed [...] Rang e, Dosing and Testing: &nbs p;FOR [place] AND [facility] ONLY &nbs p; - aPTT < 35: [...] ADJUST INITIAL BOLUS OR INITIAL INFUSION RATE.
[facility] heparin (1,000 unit/mL, 10 mL vial) for Rebolusing 04-10 11:14: 04 Yes 3000U FOR REBOLUSING , Starting on Sun04/10/23 at 0614, Until Discontinu ed, Routine
Dosing based on aPPT testing parameters (refer to continuous heparin drip order).
[facility] dextrose 10% (D10W) bolus infusion 250 mL [...] blood glucose is < 80 mg/dL, repeat.
[facility] glucagon (GLUCAGEN DIAGNOSTIC KIT) injection 1 mg 04-10 11:08: 36 Yes 1mg 1 mg, Intramuscu lar, PRN, Starting on Sun04/10/23 at 0608, Until Discontinu ed, MARIELY, Blood Glucose < or = 70 mg/dL and patient is NPO, unable to swallow or has mental changes. [facility] acetaminoph en (TYLENOL) tablet 650 mg 04-10 10:46: 56 Yes 650mg 650 mg, Oral, Q6HPRN, Starting on Sun04/10/23 at 0546, Until Discontinu ed, Routine, Pain (scale 1-3) [facility] metFORMIN (GLUCOPHAGE ) 500 mg tablet 04-10 05:48: 37 Yes 1000mg Take 2 tablets by mouth in the morning and 2 tablets in the evening. Take with meals. [facility] SEDRICK CHEWABLE ASPIRIN ORAL 04-10 05:48: 37 Yes 81mg Take 81 mg by mouth. Indication s: takes 2 per day [facility] rosuvastati n 20 mg tablet 04-10 05:48: 37 Yes 20mg Take 1 tablet by mouth at bedtime. [facility] Cholecalcif jose, Vitamin D3, 50 mcg (2,000 unit) capsule 04-10 05:48: 37 Yes 2000U Take 1 capsule by mouth. [facility] nitroglycer in 0.4 mg sublingual tablet 04-10 00:00: 00 05-19 00:00 :[id number] 1 tablet under the tongue every 5 (five) minutes as needed for Chest pain. [facility] clopidogreL (PLAVIX) 75 mg tablet 75 mg 04-08 14:00: 00 Yes 75mg 75 mg, Oral, DAILY, First dose on 04/08/23 at 0900, Until Discontinu ed, Routine [facility] metFORMIN (GLUCOPHAGE ) 500 mg tablet 04-07 15:41: 46 Yes 1000mg Take 2 tablets by mouth in the morning and 2 tablets in the evening. Take with meals. [facility] SEDRICK CHEWABLE ASPIRIN ORAL 04-07 15:41: 46 Yes 81mg Take 81 mg by mouth. Indication s: takes 2 per day [facility] rosuvastati n 20 mg tablet 04-07 15:41: 46 Yes 20mg Take 1 tablet by mouth at bedtime. [facility] Cholecalcif jose, Vitamin D3, 50 mcg (2,000 unit) capsule 04-07 15:41: 46 Yes 2000U Take 1 capsule by mouth. [facility] isosorbide mononitrate (IMDUR) 24 hr tablet 60 mg 04-07 14:00: 00 Yes 60mg 60 mg, Oral, DAILY, First dose on 04/07/23 at 0900, Until Discontinu ed, Routine [facility] aspirin chewable tablet 81 mg 04-07 14:00: 00 Yes 81mg 81 mg, Oral, DAILY, First dose on Sun04/07/23 at 0900, Until Discontinu ed [facility] docusate (COLACE) capsule 100 mg 04-07 14:00: 00 Yes 100mg 100 mg, Oral, DAILY, First dose on 04/07/23 at 0900, Until Discontinu ed, Routine [facility] clopidogreL (PLAVIX) 300 mg tablet 300 mg 04-07 13:00: 00 04-07 13:42 :00 No 300mg 300 mg, Oral, ONCE, 1 dose, On 04/07/23 at 0800, Routine [facility] rosuvastati n (CRESTOR) tablet 20 mg 04-07 02:00: 00 Yes 20mg 20 mg, Oral, QHS, First dose on Sun04/06/23 at 2100, Until Discontinu ed, [facility] (PRINIVIL,Z ESTRIL) tablet 10 mg 04-07 01:00: 00 Yes 10mg 10 mg, Oral, BID, First dose on Sun04/06/23 at 2000, Until Discontinu ed, Routine [facility] heparin (porcine) injection 5,000 Units 04-07 01:00: 00 Yes 5000U 5,000 Units, Subcutaneo us, Q12H, First dose on Sun04/06/23 at 2000, Until Discontinu ed, [facility] tic[facility]relor (BRILINTA) tablet 90 mg 04-07 01:00: 00 04-07 13:43 :00 No 90mg 90 mg, Oral, BID, 2 doses, First dose on Sun04/06/23 at 2000, Last dose on Sun04/07/23 at 0800, Routine [facility] Sliding Scale Insulin - Lispro (HumaLOG) 04-06 22:00: 00 Yes Subcutaneo us, TID MEALS+HS, First dose on Sun04/06/23 at 1700, Until Discontinu ed, Routine [facility] metoprolol tartrate (LOPRESSOR) tablet 50 mg 04-06 22:00: 00 Yes 50mg 50 mg, Oral, BID MEALS, First dose on Sun04/06/23 at 1700, Until Discontinu ed, Routine [facility] glucagon (GLUCAGEN DIAGNOSTIC KIT) injection 1 mg 04-06 20:23: 25 Yes 1mg 1 mg, Intramuscu lar, PRN, Starting on Sun04/06/23 at 1523, Until Discontinu ed, MARIELY, Blood Glucose < or = 70 mg/dL and patient is NPO, unable to swallow or has mental changes. [facility] dextrose 50 % in water (D50W) injection 25 mL 04-06 20:23: 25 Yes 25mL 25 mL, Slow IV Push, PRN, Starting on Sun04/06/23 at 1523, Until Discontinu ed, MARIELY, Blood Glucose < or = 70 mg/dL and patient is NPO, unable to swallow or has mental status changes. [facility] NaCl 0.9% (NS) IV infusion 1,000 mL 04-06 20:15: 00 04-07 04:14 :00 No 1000mL at 50 mL/hr, IV Infusion, CONTINUOUS , Starting on Sun04/06/23 at 1515, Until Sun04/06/23 at 2314, Routine [facility] acetaminoph en (TYLENOL) tablet 650 mg 04-06 19:53: 55 Yes 650mg 650 mg, Oral, Q6HPRN, Starting on Sun04/06/23 at 1453, Until Discontinu ed, Routine, Pain (scale 1-3) [facility] acetaminoph en-codeine (TYLENOL #3) 300-30 mg tablet 1 tablet 04-06 19:53: 55 04-08 19:52 :55 No 1{tbl} 1 tablet, Oral, Q6HPRN, Starting on Sun04/06/23 at 1453, Until Sun04/08/23 at 1452, Routine, Pain (scale 4-6) [facility] acetaminoph en (TYLENOL) tablet 650 mg 04-06 18:45: 00 04-06 17:59 :00 No [id number] 650mg 650 mg, Oral, ONCE, 1 dose, On Sun04/06/23 at 1345, Routine [facility] ticagrelor (BRILINTA) tablet 04-06 16:51: 53 04-06 17:08 :07 No ONCE INTRA PROCEDURE, Starting on Sun04/06/23 at 1151, Until Sun04/06/23 at 1208, Routine, CV Intraproce dure [facility] iodixanol (VISIPAQUE 320-100 mL) injection 04-06 16:50: 12 04-06 17:12 :30 No ONCE INTRA PROCEDURE, Starting on Sun04/06/23 at 1150, Until Sun04/06/23 at 1212, Routine, CV Intraproce dure [facility] adenosine 6 mg/1000 mL INTRACORONA 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 04-06 16:41: 45 04-06 17:08 :07 No ONCE INTRA PROCEDURE, Starting on Sun04/06/23 at 1141, Until Sun04/06/23 at 1208, Routine, CV Intraproce dure [facility] nitroglycer in (TRIDIL) 2 mg in 10 mL D5W for Cardiac Cath 04-06 16:41: 02 04-06 17:08 :07 No ONCE INTRA PROCEDURE, Starting on Sun04/06/23 at 1141, Until Sun04/06/23 at 1208, Routine, CV Intraproce dure [facility] heparin 1,000 unit/mL injection 04-06 16:11: 10 04-06 17:08 :07 No ONCE INTRA PROCEDURE, Starting on Sun04/06/23 at 1111, Until Sun04/06/23 at 1208, Routine, CV Intraproce dure [facility] hydralAZINE (APRESOLINE ) injection 04-06 16:09: 16 04-06 17:08 :07 No ONCE INTRA PROCEDURE, Starting on Sun04/06/23 at 1109, Until Sun04/06/23 at 1208, STAT, CV Intraproce dure [facility] NaCl 0.9% (NS) bolus infusion 04-06 15:42: 10 04-06 17:08 :07 No CONTINUOUS PRN, Starting on Sun04/06/23 at 1042, Until Sun04/06/23 at 1208, STAT, CV Intraproce dure [facility] lidocaine 1% (PF) (XYLOCAINE) injection 04-06 15:29: 38 04-06 17:08 :07 No ONCE INTRA PROCEDURE, Starting on Sun04/06/23 at 1029, Until Sun04/06/23 at 1208, Routine, CV Intraproce dure [facility] FENTanyl PF (SUBLIMAZE (PF)) injection 04-06 15:23: 19 04-06 17:08 :07 No ONCE INTRA PROCEDURE, Starting on Sun04/06/23 at 1023, Until Sun04/06/23 at 1208, Routine, CV Intraproce dure [facility] midazolam (VERSED) injection 04-06 15:23: 01 04-06 17:08 :07 No ONCE INTRA PROCEDURE, Starting on Sun04/06/23 at 1023, Until Sun04/06/23 at 1208, Routine, CV Intraproce dure [facility] dapaglifloz in (FARXIGA) 10 mg tablet 04-06 15:01: 54 04-06 00:00 :00 No 1 By Mouth Daily for 90 [facility] ferrous sulfate 325 mg (65 mg iron) EC tablet 04-06 15:01: 54 04-06 00:00 :00 No 1 tablet Orally Twice a day for 90 [facility] SEDRICK CHEWABLE ASPIRIN ORAL 16 11:12: 11 Yes 81mg Take 81 mg by mouth. Indication s: takes 2 per day [facility] rosuvastati n 20 mg tablet 03-07 11:12: 09 Yes 20mg Take 1 tablet by mouth at bedtime. [facility] dapaglifloz in (FARXIGA) 10 mg tablet 03-07 11:12: 06 Yes 1 By Mouth Daily for 90 [facility] ferrous sulfate 325 mg (65 mg iron) EC tablet 03-07 10:50: 02 Yes 1 tablet Orally Twice a day for 90 [facility] lisinopriL 10 mg tablet 03-07 00:00: 00 07-13 00:00 :00 No [id number] 10mg Take 1 tablet by mouth in the morning and 1 tablet in the evening. [facility] isosorbide mononitrate 60 mg 24 hr tablet 03-07 00:00: 00 04-10 00:00 :00 No [id number] 60mg Take 1 tablet by mouth in the morning. [facility] clopidogreL 75 mg tablet 12-26 00:00: 00 08-02 00:00 :00 No [id number] 75mg Take 1 tablet by mouth in the morning. [facility] lidocaine 1% (PF) (XYLOCAINE) injection 12-19 12:42: 44 12-19 12:50 :52 No ONCE INTRA PROCEDURE, Starting on Sun12/19/22 at 0742, Until Sun12/19/22 at 0750, Routine, CV Intraproce dure [facility] vancomycin 1000 mg in NS 200 mL RTU IV Piggyback 12-19 12:40: 00 12-19 12:40 :00 No CONTINUOUS PRN, Starting on Sun12/19/22 at 0740, Until Sun12/19/22 at 0740, Administer over 60 Minutes, CV Intraproce dure [facility] metFORMIN (GLUCOPHAGE ) 500 mg tablet 12-19 09:46: 11 Yes 1000mg Take 1,000 mg by mouth 2 (two) times daily with meals. [facility] SEDRICK CHEWABLE ASPIRIN ORAL 12-19 09:46: 11 Yes 81mg Take 81 mg by mouth. Indication s: takes 2 per day [facility] rosuvastati n 20 mg tablet 12-19 09:46: 11 Yes 20mg Take 1 tablet by mouth at bedtime. [facility] Cholecalcif jose, Vitamin D3, 50 mcg (2,000 unit) capsule 12-19 09:46: 11 Yes 2000U Take 2,000 Units by mouth. [facility] dapaglifloz in ([facility]) 10 mg tablet 12-19 09:46: 11 Yes 1 By Mouth Daily for 90 [facility] ferrous sulfate 325 mg (65 mg iron) EC tablet 12-19 09:46: 11 Yes 1 tablet Orally Twice a day for 90 [facility] doxycycline hyclate 100 mg capsule 12-19 00:00: 00 04-06 00:00 :00 No [id number] 100mg Take 1 capsule by mouth every 12 (twelve) hours. [facility] dapaglifloz in () 10 mg tablet 12-12 10:46: 21 Yes 1 By Mouth Daily for 90 [facility] ferrous sulfate 325 mg (65 mg iron) EC tablet 12-12 10:46: 21 Yes 1 tablet Orally Twice a day for 90 [facility] isosorbide mononitrate 30 mg 24 hr tablet 12-05 00:00: 00 03-07 00:00 :00 No [id number] 30mg Take 1 tablet by mouth in the morning. [facility] SEDRICK CHEWABLE ASPIRIN ORAL 11-16 08:48: 33 Yes 81mg Take 81 mg by mouth. Indication s: takes 2 per day [facility] rosuvastati n 20 mg tablet 11-16 08:48: 33 Yes 20mg Take 1 tablet by mouth at bedtime. [facility] SEDRICK CHEWABLE ASPIRIN ORAL 10-13 10:26: 34 Yes 81mg Take 81 mg by mouth. Indication s: takes 2 per day [facility] rosuvastati n 20 mg tablet 24 10:26: 34 Yes 20mg Take 20 mg by mouth at bedtime. [facility] ibuprofen 800 mg tablet 10-10 00:00: 00 04-10 00:00 :00 No 800mg Take 1 tablet by mouth every 8 (eight) hours as needed. [facility] rosuvastati n 20 mg tablet 08-24 16:47: 42 Yes 20mg Take 20 mg by mouth at bedtime. [facility] metFORMIN (GLUCOPHAGE ) 500 mg tablet 08-24 15:27: 49 Yes 1000mg Take 1,000 mg by mouth 2 (two) times daily with meals. [facility] SEDRICK CHEWABLE ASPIRIN ORAL 08-24 15:27: 49 Yes 81mg Take 81 mg by mouth. Indication s: takes 2 per day [facility] Cholecalcif jose, Vitamin D3, 50 mcg (2,000 unit) capsule 08-24 15:27: 49 Yes 2000U Take 2,000 Units by mouth. [facility] isosorbide mononitrate 30 mg 24 hr tablet 08-24 00:00: 00 12-05 00:00 :00 No [id number] 30mg Take 1 tablet by mouth in the morning. [facility] cefTRIAXone (ROCEPHIN) 1,000 mg in NaCl 0.9% (NS) 50 mL MINI-BAG 08-20 03:45: 00 08-20 03:45 :00 No 1000mg 1,000 mg, Intravenou s, ONCE, 1 dose, On 08/19/22 at 2145, Administer over 30 Minutes, 50 mL
Reas on for Anti-Infec tive: Documented Infection< br>Documen olvin Infection Site: Urine
D uration of Therapy: Other (see Comments) [facility] cefdinir 300 mg capsule 08-19 00:00: 00 08-25 05:59 :00 No [id number] 300mg Take 1 capsule by mouth every 12 (twelve) hours for 5 days. [facility] metoprolol tartrate 50 mg tablet 08-14 00:00: 00 06-13 00:00 :00 No 50mg Take 1 tablet by mouth in the morning and 1 tablet in the evening. Take with meals. [facility] metFORMIN (GLUCOPHAGE ) 500 mg tablet 2021-07 17:05: 04 Yes 1000mg Take 1,000 mg by mouth 2 (two) times daily with meals. [facility] SEDRICK CHEWABLE ASPIRIN ORAL 2021-07 17:05: 04 Yes 81mg Take 81 mg by mouth. Indication s: takes 2 per day [facility] rosuvastati n 20 mg tablet 2021-07 17:05: 04 Yes 20mg Take 20 mg by mouth at bedtime. [facility] Cholecalcif jose, Vitamin D3, 50 mcg (2,000 unit) capsule 2021-07 17:05: 04 Yes 2000U Take 2,000 Units by mouth. [facility] sulfur hexafluorid e microsphr (LUMASON) injection 5 mL 2021-07 16:15: 00 07-12 16:15 :00 No [id number] 5mL 5 mL, Intravenou s, ONCE, 1 dose, On Sun07/12/22 at 1015, Routine
[place] tribunal member approving Restricted medication : PARDEEP [facility] polyethylen e glycol 3350 powder 17 g 2021-07 15:00: 00 Yes 17g 17 g, Oral, DAILY, First dose on Sun07/12/22 at 0900, Until Discontinu ed, Routine [facility] lisinopriL (PRINIVIL,Z ESTRIL) tablet 5 mg 2021-07 15:00: 00 Yes 5mg 5 mg, Oral, DAILY, First dose on Sun07/12/22 at 0900, Until Discontinu ed, Routine [facility] isosorbide mononitrate (IMDUR) 24 hr tablet 60 mg 2021-07 15:00: 00 Yes 60mg 60 mg, Oral, DAILY, First dose on Sun07/12/22 at 0900, Until Discontinu ed, Routine [facility] cholecalcif jose (vitamin D3) tablet 1,000 Units 2021-07 15:00: 00 Yes 1000U 1,000 Units, Oral, DAILY, First dose on Sun07/12/22 at 0900, Until Discontinu ed [facility] clopidogreL (PLAVIX) 75 mg tablet 75 mg 2021-07 15:00: 00 Yes 75mg 75 mg, Oral, DAILY, First dose on Sun07/12/22 at 0900, Until Discontinu ed, Routine, CV Recovery to Floor
F aculty member approving Restricted medication : NAGA LAKHANI [facility] aspirin chewable tablet 81 mg 2021-07 15:00: 00 Yes 81mg 81 mg, Oral, DAILY, First dose on Sun07/12/22 at 0900, Until Discontinu ed, Routine, CV Recovery to Floor [facility] rosuvastati n (CRESTOR) tablet 20 mg 2021-07 03:00: 00 Yes 20mg 20 mg, Oral, QHS, First dose on Sun07/11/22 at 2100, Until Discontinu ed, Routine [facility] heparin (porcine) injection 5,000 Units 2021-07 02:00: 00 Yes 5000U 5,000 Units, Subcutaneo us, Q12H, First dose on Sun07/11/22 at 2000, Until Discontinu ed, Routine [facility] metoprolol tartrate (LOPRESSOR) tablet 25 mg 2021-07 02:00: 00 Yes 25mg 25 mg, Oral, BID, First dose on Sun07/11/22 at 2000, Until Discontinu ed, Routine [facility] clopidogreL 75 mg tablet 2021-07 00:00: 00 12-12 00:00 :00 No [id number] 75mg Take 1 tablet by mouth in the morning. [facility] Sliding Scale Insulin - Lispro (HumaLOG) + Fsbg Testing 2021-07 23:00: 00 Yes Subcutaneo us, TID MEALS+HS, First dose on Sun07/11/22 at 1700, Until Discontinu ed, Routine [facility] acetaminoph en (TYLENOL) tablet 650 mg 2021-07 21:06: 19 Yes 650mg 650 mg, Oral, Q6HPRN, Starting on Sun07/11/22 at 1506, Until Discontinu ed, Routine, Pain (scale 1-3) [facility] iodixanol (VISIPAQUE 320-100 mL) injection 2021-07 16:36: 10 07-11 16:56 :02 No ONCE INTRA PROCEDURE, Starting on Sun07/11/22 at 1036, Until Sun07/11/22 at 1056, Routine, CV Intraproce dure [facility] adenosine 6 mg/1000 mL INTRACORONA 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 2021-07 16:19: 49 07-11 16:56 :02 No ONCE INTRA PROCEDURE, Starting on Sun07/11/22 at 1019, Until Sun07/11/22 at 1056, Routine, CV Intraproce dure [facility] nitroglycer in (TRIDIL) 2 mg in 10 mL D5W for Cardiac Cath 2021-07 15:17: 44 07-11 16:56 :02 No ONCE INTRA PROCEDURE, Starting on Sun07/11/22 at 0917, Until Sun07/11/22 at 1056, Routine, CV Intraproce dure [facility] heparin 1,000 unit/mL injection 2021-07 15:17: 31 07-11 16:56 :02 No ONCE INTRA PROCEDURE, Starting on Sun07/11/22 at 0917, Until Sun07/11/22 at 1056, Routine, CV Intraproce dure [facility] lidocaine 1% (PF) (XYLOCAINE) injection 2021-07 15:11: 54 07-11 16:56 :02 No ONCE INTRA PROCEDURE, Starting on Sun07/11/22 at 0911, Until Sun07/11/22 at 1056, Routine, CV Intraproce dure [facility] ezetimibe-s imvastatin 10-20 10-20 mg tablet 2021-07 15:09: 09 07-11 00:00 :00 No 1{tbl} Take 1 Tab by mouth at bedtime. [facility] ferrous sulfate 325 mg (65 mg iron) EC tablet 2021-07 15:09: 09 07-11 00:00 :00 No 1 tablet [facility] clopidogreL (PLAVIX) 300 mg tablet 600 mg 2021-07 15:00: 00 07-11 15:00 :00 No 600mg 600 mg, Oral, ONCE, 1 dose, On Sun07/11/22 at 0900, Routine [facility] midazolam (VERSED) injection 2021-07 14:58: 51 07-11 16:56 :02 No ONCE INTRA PROCEDURE, Starting on Sun07/11/22 at 0858, Until Sun07/11/22 at 1056, Routine, CV Intraproce dure [facility] FENTanyl PF (SUBLIMAZE (PF)) injection 2021-07 14:58: 44 07-11 16:56 :02 No ONCE INTRA PROCEDURE, Starting on Sun07/11/22 at 0858, Until Sun07/11/22 at 1056, Routine, CV Intraproce dure [facility] isosorbide mononitrate 60 mg 24 hr tablet 2021-07 00:00: 00 08-24 00:00 :00 No [id number] 60mg Take 1 tablet by mouth in the morning. [facility] iopamidol (ISOVUE 370-500 mL) injection 04-18 14:16: 56 04-18 14:23 :24 No ONCE INTRA PROCEDURE, Starting on Sun04/18/22 at 0916, Until Sun04/18/22 at 0923, Routine, CV Intraproce dure [facility] hydralAZINE (APRESOLINE ) injection 04-18 13:43: 08 04-18 14:23 :24 No ONCE INTRA PROCEDURE, Starting on Sun04/18/22 at 0843, Until Sun04/18/22 at 09, STAT, CV Intraproce dure [facility] lidocaine 1% (PF) (XYLOCAINE) injection 04-18 12:59: 54 04-18 14:23 :24 No ONCE INTRA PROCEDURE, Starting on Sun04/18/22 at 0759, Until Sun04/18/22 at 09, Routine, CV Intraproce dure [facility] midazolam (VERSED) injection 04-18 12:50: 51 04-18 14:23 :24 No ONCE INTRA PROCEDURE, Starting on Sun04/18/22 at 0750, Until Sun04/18/22 at 09, Routine, CV Intraproce dure [facility] FENTanyl PF (SUBLIMAZE (PF)) injection 04-18 12:50: 38 04-18 14:23 :24 No ONCE INTRA PROCEDURE, Starting on Sun04/18/22 at 0750, Until Sun04/18/22 at 09, Routine, CV Intraproce dure [facility] ezetimibe-s imvastatin 10-20 10-20 mg tablet 04-18 12:18: 45 Yes 1{tbl} Take 1 Tab by mouth at bedtime. [facility] metFORMIN (GLUCOPHAGE ) 500 mg tablet 04-18 12:18: 45 Yes 1000mg Take 1,000 mg by mouth 2 (two) times daily with meals. [facility] SEDRICK CHEWABLE ASPIRIN ORAL 04-18 12:18: 45 Yes 81mg Take 81 mg by mouth. Indication s: takes 2 per day [facility] rosuvastati n 20 mg tablet 04-18 12:18: 45 Yes 20mg Take 20 mg by mouth at bedtime. [facility] Cholecalcif jose, Vitamin D3, 50 mcg (2,000 unit) capsule 04-18 12:18: 45 Yes 2000U Take 2,000 Units by mouth. [facility] ferrous sulfate 325 mg (65 mg iron) EC tablet 04-18 12:18: 45 Yes 1 tablet [facility] isosorbide mononitrate 60 mg 24 hr tablet 04-18 00:00: 00 06-26 00:00 :00 No [id number] 30mg Take 0.5 tablets by mouth in the morning. [facility] ezetimibe-s imvastatin 10-20 10-20 mg tablet 03-28 11:22: 09 Yes 1{tbl} Take 1 Tab by mouth at bedtime. [facility] ferrous sulfate 325 mg (65 mg iron) EC tablet 03-28 11:22: 09 Yes 1 tablet [facility] metFORMIN (GLUCOPHAGE ) 500 mg tablet 03-23 13:05: 40 Yes 1000mg Take 2 tablets by mouth in the morning and 2 tablets in the evening. Take with meals. [facility] SEDRICK CHEWABLE ASPIRIN ORAL 03-23 13:05: 40 Yes 81mg Take 81 mg by mouth. Indication s: takes 2 per day [facility] rosuvastati n 20 mg tablet 03-23 13:05: 40 Yes 20mg Take 1 tablet by mouth at bedtime. [facility] Cholecalcif jose, Vitamin D3, 50 mcg (2,000 unit) capsule 03-23 13:05: 40 Yes 2000U Take 1 capsule by mouth. [facility] amoxicillin 500 mg capsule 02-25 00:00: 00 07-11 00:00 :00 No TAKE ONE CAPSULE BY MOUTH EVERY 8 HOURS FOR 10 DAYS [facility] meclizine 25 mg tablet 02-25 00:00: 00 07-11 00:00 :00 No TAKE 1 TABLET BY MOUTH EVERY 8 HOURS NEEDED [facility] lisinopriL 10 mg tablet 607 00:00: 00 03-07 00:00 :00 No [id number] 5mg Take 0.5 tablets by mouth in the morning. [facility] FARXIGA 10 mg tablet 2017-0 3-21 00:00: 00 07-11 00:00 :00 No [id number] 10mg Take 10 mg by mouth daily. [facility] metoprolol tartrate 25 mg tablet 2016-07 2-18 00:00: 00 08-24 00:00 :00 No 25mg Take 1 tablet by mouth 2 (two) times daily. [facility] metFORMIN HCl 1000 MG metFORMIN HCl 1000 MG No 1{table t_with_ meals} BID metFORMIN HCl 1000 MG Lisinopril 10 MG Lisinopril 10 MG No 1{table t} QD Lisinopril 10 MG Aspir-81 81 MG Aspir-81 81 MG No 1{table t} QD Aspir-81 81 MG Metoprolol Tartrate 50 MG Metoprolol Tartrate 50 MG No 1{table t_with_ food} BID Metoprolol Tartrate 50 MG Clopidogrel Bisulfate 75 MG Clopidogrel Bisulfate [...] QD Vitamin D3 25 MCG (1000 UT) Jardiance 10 MG Jardiance 10 MG No 1{table t} QD Jardiance 10 MG Crestor 20 MG Crestor 20 MG No 1{table t_at_be dtime} QD Crestor 20 MG Jardiance 10 mg tablet Take 1 tablet every day by oral route. Jardiance 10 mg tablet Take 1 tablet every day by oral route. No 1 Q1D Jardiance 10 mg tablet Take 1 tablet every day by oral route. [facility] Low Dose Aspirin 81 mg tablet,kristie yed release Take 1 tablet every day by oral route. Low Dose Aspirin 81 mg tablet,kristie yed release Take 1 tablet every day by oral route. No 1 Q1D Low Dose Aspirin 81 mg tablet,del ayed release Take 1 tablet every day by oral route. [facility] estradiol 0.01% (0.1 mg/gram) vaginal cream Insert 0.5 g 3 times a week by vaginal route at bedtime for 30 days. estradiol 0.01% (0.1 mg/gram) vaginal cream Insert 0.5 g 3 times a week by vaginal route at bedtime for 30 days. No .5g Q56H estradiol 0.01% (0.1 mg/gram) vaginal cream Insert 0.5 g 3 times a week by vaginal route at bedtime for 30 days. [facility] Myrbetriq 50 mg tablet,exte nded release Take 1 tablet every day by oral route for 90 days. Myrbetriq 50 mg tablet,exte nded release Take 1 tablet every day by oral route for 90 days. No 1 Q1D Myrbetriq 50 mg tablet,ext ended release Take 1 tablet every day by oral route for 90 days. [facility] Immunizations Ordered Immunization Name Filled Immunization Name Date Status Comments Source Influenza, adjuvanted, trivalent, PF (FLUAD) 2024-06-13 00:00:00 Completed SARS-COV-2 COVID-19 PFIZER VACCINE 2024 09:35:18 Completed [facility] Influenza Virus Vaccine,quad Im,preserve Free 65+ (FLUAD) 2024 09:35:18 Completed [facility] Influenza High Dose 2024 09:35:18 Completed [facility] Influenza Virus Vaccine,quad Im,preserve Free 65+ (FLUAD) 2024-01-04 11:30:00 Completed [facility] Influenza High Dose 2024-01-04 11:30:00 Completed [facility] SARS-COV-2 COVID-19 PFIZER VACCINE 2024-01-04 11:30:00 Completed [facility] SARS-COV-2 COVID-19 PFIZER VACCINE 2023-12-30 00:00:00 Completed [facility] Influenza Virus Vaccine,quad Im,preserve Free 65+ (FLUAD) 2023-12-30 00:00:00 Completed [facility] Influenza High Dose 2023-12-30 00:00:00 Completed [facility] SARS-COV-2 COVID-19 PFIZER VACCINE 2023-12-28 09:06:00 Completed [facility] Influenza Virus Vaccine,quad Im,preserve Free 65+ (FLUAD) 2023-12-28 09:06:00 Completed [facility] Influenza High Dose 2023-12-28 09:06:00 Completed [facility] SARS-COV-2 COVID-19 PFIZER VACCINE 2023-12-28 07:19:00 Completed [facility] Influenza Virus Vaccine,quad Im,preserve Free 65+ (FLUAD) 2023-12-28 07:19:00 Completed [facility] Influenza High Dose 2023-12-28 07:19:00 Completed [facility] Influenza Virus Vaccine,quad Im,preserve Free 65+ (FLUAD) 2023-12-27 13:40:00 Completed [facility] Influenza High Dose 2023-12-27 13:40:00 Completed [facility] SARS-COV-2 COVID-19 PFIZER VACCINE 2023-12-27 13:40:00 Completed [facility] SARS-COV-2 COVID-19 PFIZER VACCINE 2023-12-03 14:00:00 Completed [facility] Influenza Virus Vaccine,quad Im,preserve Free 65+ (FLUAD) 2023-12-03 14:00:00 Completed [facility] Influenza High Dose 2023-12-03 14:00:00 Completed [facility] SARS-COV-2 COVID-19 PFIZER VACCINE 2023-11-12 00:00:00 Completed [facility] Influenza Virus Vaccine,quad Im,preserve Free 65+ (FLUAD) 2023-11-12 00:00:00 Completed [facility] Influenza High Dose 2023-11-12 00:00:00 Completed [facility] Influenza Virus Vaccine,quad Im,preserve Free 65+ (FLUAD) 2023-11-09 12:30:00 Completed [facility] Influenza High Dose 2023-11-09 12:30:00 Completed [facility] SARS-COV-2 COVID-19 PFIZER VACCINE 2023-11-09 12:30:00 Completed [facility] SARS-COV-2 COVID-19 PFIZER VACCINE 2023-11-09 12:28:03 Completed [facility] Influenza Virus Vaccine,quad Im,preserve Free 65+ (FLUAD) 2023-11-09 12:28:03 Completed [facility] Influenza High Dose 2023-11-09 12:28:03 Completed [facility] SARS-COV-2 COVID-19 PFIZER VACCINE 2023-11-09 12:27:44 Completed [facility] Influenza Virus Vaccine,quad Im,preserve Free 65+ (FLUAD) 2023-11-09 12:27:44 Completed [facility] Influenza High Dose 2023-11-09 12:27:44 Completed [facility] Influenza Virus Vaccine,quad Im,preserve Free 65+ (FLUAD) 2023-11-05 11:00:00 Completed [facility] Influenza High Dose 2023-11-05 11:00:00 Completed [facility] SARS-COV-2 COVID-19 PFIZER VACCINE 2023-11-05 11:00:00 Completed [facility] SARS-COV-2 COVID-19 PFIZER VACCINE 2023-11-01 11:03:16 Completed [facility] Influenza Virus Vaccine,quad Im,preserve Free 65+ (FLUAD) 2023-11-01 11:03:16 Completed [facility] Influenza High Dose 2023-11-01 11:03:16 Completed [facility] SARS-COV-2 COVID-19 PFIZER VACCINE 2023-10-31 00:00:00 Completed [facility] Influenza Virus Vaccine,quad Im,preserve Free 65+ (FLUAD) 2023-10-31 00:00:00 Completed [facility] Influenza High Dose 2023-10-31 00:00:00 Completed [facility] Influenza Virus Vaccine,quad Im,preserve Free 65+ (FLUAD) 2023-10-29 14:30:00 Completed [facility] Influenza High Dose 2023-10-29 14:30:00 Completed [facility] SARS-COV-2 COVID-19 PFIZER VACCINE 2023-10-29 14:30:00 Completed [facility] SARS-COV-2 COVID-19 PFIZER VACCINE 2023-10-24 00:00:00 Completed [facility] Influenza Virus Vaccine,quad Im,preserve Free 65+ (FLUAD) 2023-10-24 00:00:00 Completed [facility] Influenza High Dose 2023-10-24 00:00:00 Completed [facility] Influenza Virus Vaccine,quad Im,preserve Free 65+ (FLUAD) 2023-10-22 00:00:00 Completed [facility] Influenza High Dose 2023-10-22 00:00:00 Completed [facility] SARS-COV-2 COVID-19 PFIZER VACCINE 2023-10-22 00:00:00 Completed [facility] SARS-COV-2 COVID-19 PFIZER VACCINE 2023-10-05 09:30:30 Completed [facility] Influenza Virus Vaccine,quad Im,preserve Free 65+ (FLUAD) 2023-10-05 09:30:30 Completed [facility] Influenza High Dose 2023-10-05 09:30:30 Completed [facility] SARS-COV-2 COVID-19 PFIZER VACCINE 2023-09-21 07:55:00 Completed [facility] Influenza Virus Vaccine,quad Im,preserve Free 65+ (FLUAD) 2023-09-21 07:55:00 Completed [facility] Influenza High Dose 2023-09-21 07:55:00 Completed [facility] SARS-COV-2 COVID-19 PFIZER VACCINE 2023-09-21 06:20:00 Completed [facility] Influenza Virus Vaccine,quad Im,preserve Free 65+ (FLUAD) 2023-09-21 06:20:00 Completed [facility] Influenza High Dose 2023-09-21 06:20:00 Completed [facility] SARS-COV-2 COVID-19 PFIZER VACCINE 2023-09-21 00:00:00 Completed [facility] Influenza Virus Vaccine,quad Im,preserve Free 65+ (FLUAD) 2023-09-21 00:00:00 Completed [facility] Influenza High Dose 2023-09-21 00:00:00 Completed [facility] Influenza Virus Vaccine,quad Im,preserve Free 65+ (FLUAD) 2023-09-17 15:30:00 Completed [facility] Influenza High Dose 2023-09-17 15:30:00 Completed [facility] SARS-COV-2 COVID-19 PFIZER VACCINE 2023-09-17 15:30:00 Completed [facility] SARS-COV-2 COVID-19 PFIZER VACCINE 2023-09-10 08:30:00 Completed [facility] Influenza Virus Vaccine,quad Im,preserve Free 65+ (FLUAD) 2023-09-10 08:30:00 Completed [facility] Influenza High Dose 2023-09-10 08:30:00 Completed [facility] SARS-COV-2 COVID-19 PFIZER VACCINE 2023-09-10 00:00:00 Completed [facility] Influenza Virus Vaccine,quad Im,preserve Free 65+ (FLUAD) 2023-09-10 00:00:00 Completed [facility] Influenza High Dose 2023-09-10 00:00:00 Completed [facility] Influenza Virus Vaccine,quad Im,preserve Free 65+ (FLUAD) 2023-08-30 10:20:00 Completed [facility] Influenza High Dose 2023-08-30 10:20:00 Completed [facility] SARS-COV-2 COVID-19 PFIZER VACCINE 2023-08-30 10:20:00 Completed [facility] SARS-COV-2 COVID-19 PFIZER VACCINE 2023-08-23 00:00:00 Completed [facility] Influenza Virus Vaccine,quad Im,preserve Free 65+ (FLUAD) 2023-08-23 00:00:00 Completed [facility] Influenza High Dose 2023-08-23 00:00:00 Completed [facility] SARS-COV-2 COVID-19 PFIZER VACCINE 2023-08-01 00:00:00 Completed [facility] Influenza Virus Vaccine,quad Im,preserve Free 65+ (FLUAD) 2023-08-01 00:00:00 Completed [facility] Influenza High Dose 2023-08-01 00:00:00 Completed [facility] SARS-COV-2 COVID-19 PFIZER VACCINE 2023-08-01 00:00:00 Completed [facility] Influenza Virus Vaccine,quad Im,preserve Free 65+ (FLUAD) 2023-08-01 00:00:00 Completed [facility] Influenza High Dose 2023-08-01 00:00:00 Completed [facility] Influenza Virus Vaccine,quad Im,preserve Free 65+ (FLUAD) 2023-07-13 00:00:00 Completed [facility] Influenza High Dose 2023-07-13 00:00:00 Completed [facility] SARS-COV-2 COVID-19 PFIZER VACCINE 2023-07-13 00:00:00 Completed [facility] SARS-COV-2 COVID-19 PFIZER VACCINE 2023-07-10 00:00:00 Completed [facility] Influenza Virus Vaccine,quad Im,preserve Free 65+ (FLUAD) 2023-07-10 00:00:00 Completed [facility] Influenza High Dose 2023-07-10 00:00:00 Completed [facility] SARS-COV-2 COVID-19 PFIZER VACCINE 2023-06-29 11:00:00 Completed [facility] Influenza Virus Vaccine,quad Im,preserve Free 65+ (FLUAD) 2023-06-29 11:00:00 Completed [facility] Influenza High Dose 2023-06-29 11:00:00 Completed [facility] SARS-COV-2 COVID-19 PFIZER VACCINE 2023-06-29 10:30:00 Completed [facility] Influenza Virus Vaccine,quad Im,preserve Free 65+ (FLUAD) 2023-06-29 10:30:00 Completed [facility] Influenza High Dose 2023-06-29 10:30:00 Completed [facility] SARS-COV-2 COVID-19 PFIZER VACCINE 2023-06-29 00:00:00 Completed [facility] Influenza Virus Vaccine,quad Im,preserve Free 65+ (FLUAD) 2023-06-29 00:00:00 Completed [facility] Influenza High Dose 2023-06-29 00:00:00 Completed [facility] SARS-COV-2 COVID-19 PFIZER VACCINE 2023-06-19 00:00:00 Completed [facility] Influenza Virus Vaccine,quad Im,preserve Free 65+ (FLUAD) 2023-06-19 00:00:00 Completed [facility] Influenza High Dose 2023-06-19 00:00:00 Completed [facility] SARS-COV-2 COVID-19 PFIZER VACCINE 2023-06-01 14:36:38 Completed [facility] Influenza Virus Vaccine,quad Im,preserve Free 65+ (FLUAD) 2023-06-01 14:36:38 Completed [facility] Influenza High Dose 2023-06-01 14:36:38 Completed [facility] SARS-COV-2 COVID-19 PFIZER VACCINE 2023-06-01 14:36:28 Completed [facility] Influenza Virus Vaccine,quad Im,preserve Free 65+ (FLUAD) 2023-06-01 14:36:28 Completed [facility] Influenza High Dose 2023-06-01 14:36:28 Completed [facility] SARS-COV-2 COVID-19 PFIZER VACCINE 2023-05-22 00:00:00 Completed [facility] Influenza Virus Vaccine,quad Im,preserve Free 65+ (FLUAD) 2023-05-22 00:00:00 Completed [facility] Influenza High Dose 2023-05-22 00:00:00 Completed [facility] SARS-COV-2 COVID-19 PFIZER VACCINE 2023-05-21 00:00:00 Completed [facility] Influenza Virus Vaccine,quad Im,preserve Free 65+ (FLUAD) 2023-05-21 00:00:00 Completed [facility] Influenza High Dose 2023-05-21 00:00:00 Completed [facility] SARS-COV-2 COVID-19 PFIZER VACCINE 2023-05-18 10:54:00 Completed [facility] Influenza Virus Vaccine,quad Im,preserve Free 65+ (FLUAD) 2023-05-18 10:54:00 Completed [facility] Influenza High Dose 2023-05-18 10:54:00 Completed [facility] SARS-COV-2 COVID-19 PFIZER VACCINE 2023-05-17 08:40:00 Completed [facility] Influenza Virus Vaccine,quad Im,preserve Free 65+ (FLUAD) 2023-05-17 08:40:00 Completed [facility] Influenza High Dose 2023-05-17 08:40:00 Completed [facility] SARS-COV-2 COVID-19 PFIZER VACCINE 2023-05-09 00:00:00 Completed [facility] Influenza Virus Vaccine,quad Im,preserve Free 65+ (FLUAD) 2023-05-09 00:00:00 Completed [facility] SARS-COV-2 COVID-19 PFIZER VACCINE 2023-05-07 08:30:00 Completed [facility] Influenza Virus Vaccine,quad Im,preserve Free 65+ (FLUAD) 2023-05-07 08:30:00 Completed [facility] SARS-COV-2 COVID-19 PFIZER VACCINE 2023-04-23 00:00:00 Completed [facility] Influenza Virus Vaccine,quad Im,preserve Free 65+ (FLUAD) 2023-04-23 00:00:00 Completed [facility] SARS-COV-2 COVID-19 PFIZER VACCINE 2023-04-20 10:00:00 Completed [facility] Influenza Virus Vaccine,quad Im,preserve Free 65+ (FLUAD) 2023-04-20 10:00:00 Completed [facility] SARS-COV-2 COVID-19 PFIZER VACCINE 2023-04-13 00:00:00 Completed [facility] Influenza Virus Vaccine,quad Im,preserve Free 65+ (FLUAD) 2023-04-13 00:00:00 Completed [facility] SARS-COV-2 COVID-19 PFIZER VACCINE 2023-04-11 00:00:00 Completed [facility] Influenza Virus Vaccine,quad Im,preserve Free 65+ (FLUAD) 2023-04-11 00:00:00 Completed [facility] SARS-COV-2 COVID-19 PFIZER VACCINE 2023-04-09 00:00:00 Completed [facility] Influenza Virus Vaccine,quad Im,preserve Free 65+ (FLUAD) 2023-04-09 00:00:00 Completed [facility] SARS-COV-2 COVID-19 PFIZER VACCINE 2022-07-20 00:00:00 Completed [facility] Influenza Virus Vaccine,quad Im,preserve Free 65+ (FLUAD) 2022-07-20 00:00:00 Completed [facility] SARS-COV-2 COVID-19 PFIZER VACCINE 2022-06-14 00:00:00 Completed [facility] Influenza Virus Vaccine,quad Im,preserve Free 65+ (FLUAD) 2022-06-14 00:00:00 Completed [facility] SARS-COV-2 COVID-19 PFIZER VACCINE 2022-01-21 00:00:00 Completed [facility] Influenza Virus Vaccine,quad Im,preserve Free 65+ (FLUAD) 2022-01-21 00:00:00 Completed [facility] Influenza Virus Vaccine,quad Im,preserve Free 65+ 2021-07-04 00:00:00 Completed [facility] Influenza Virus Vaccine,quad Im,preserve Free 65+ 2021-07-04 00:00:00 Completed [facility] Influenza Virus Vaccine,quad Im,preserve Free 65+ 2021-07-04 00:00:00 Completed [facility] Influenza Virus Vaccine,quad Im,preserve Free 65+ 2021-07-04 00:00:00 Completed [facility] Influenza Virus Vaccine,quad Im,preserve Free 65+ 2021-07-04 00:00:00 Completed [facility] Influenza Virus Vaccine,quad Im,preserve Free 65+ 2021-07-04 00:00:00 Completed [facility] Influenza Virus Vaccine,quad Im,preserve Free 65+ 2021-07-04 00:00:00 Completed [facility] Influenza Virus Vaccine,quad Im,preserve Free 65+ 2021-07-04 00:00:00 Completed [facility] Influenza Virus Vaccine,quad Im,preserve Free 65+ 2021-07-04 00:00:00 Completed [facility] Influenza Virus Vaccine,quad Im,preserve Free 65+ 2021-07-04 00:00:00 Completed [facility] Influenza Virus Vaccine,quad Im,preserve Free 65+ 2021-07-04 00:00:00 Completed [facility] Influenza Virus Vaccine,quad Im,preserve Free 65+ 2021-07-04 00:00:00 Completed [facility] Influenza Virus Vaccine,quad Im,preserve Free 652021-07-04 00:00:00 Completed [facility] Influenza Virus Vaccine,quad Im,preserve Free 65+ 2021-07-04 00:00:00 Completed [facility] Influenza Virus Vaccine,quad Im,preserve Free 65+ 2021-07-04 00:00:00 Completed [facility] Influenza Virus Vaccine,quad Im,preserve Free 65+ 2021-07-04 00:00:00 Completed [facility] Influenza Virus Vaccine,quad Im,preserve Free 65+ 2021-07-04 00:00:00 Completed [facility] Influenza Virus Vaccine,quad Im,preserve Free 65+ 2021-07-04 00:00:00 Completed [facility] Influenza Virus Vaccine,quad Im,preserve Free 65+ 2021-07-04 00:00:00 Completed [facility] Influenza Virus Vaccine,quad Im,preserve Free 65+ 2021-07-04 00:00:00 Completed [facility] Influenza Virus Vaccine,quad Im,preserve Free 65+ 2021-07-04 00:00:00 Completed [facility] Influenza Virus Vaccine,quad Im,preserve Free 65+ 2021-07-04 00:00:00 Completed [facility] Influenza Virus Vaccine,quad Im,preserve Free 652021-07-04 00:00:00 Completed [facility] Influenza Virus Vaccine,quad Im,preserve Free 65+ 2021-07-04 00:00:00 Completed [facility] Influenza Virus Vaccine,quad Im,preserve Free 652021-07-04 00:00:00 Completed [facility] Influenza Virus Vaccine,quad Im,preserve Free 652021-07-04 00:00:00 Completed [facility] Influenza Virus Vaccine,quad Im,preserve Free 652021-07-04 00:00:00 Completed [facility] Influenza Virus Vaccine,quad Im,preserve Free 652021-07-04 00:00:00 Completed [facility] Influenza Virus Vaccine,quad Im,preserve Free 652021-07-04 00:00:00 Completed [facility] Influenza Virus Vaccine,quad Im,preserve Free 652021-07-04 00:00:00 Completed [facility] Influenza Virus Vaccine,quad Im,preserve Free 652021-07-04 00:00:00 Completed [facility] Influenza Virus Vaccine,quad Im,preserve Free 652021-07-04 00:00:00 Completed [facility] Influenza Virus Vaccine,quad Im,preserve Free 652021-07-04 00:00:00 Completed [facility] Influenza Virus Vaccine,quad Im,preserve Free 652021-07-04 00:00:00 Completed [facility] Influenza Virus Vaccine,quad Im,preserve Free 65+ 2021-07-04 00:00:00 Completed [facility] Influenza Virus Vaccine,quad Im,preserve Free 65+ 2021-07-04 00:00:00 Completed [facility] Influenza Virus Vaccine,quad Im,preserve Free 65+ 2021-07-04 00:00:00 Completed [facility] Influenza Virus Vaccine,quad Im,preserve Free 65+ 2021-07-04 00:00:00 Completed [facility] Influenza Virus Vaccine,quad Im,preserve Free 65+ 2021-07-04 00:00:00 Completed [facility] Influenza Virus Vaccine,quad Im,preserve Free 65+ (FLUAD) 2021-07-04 00:00:00 Completed [facility] Influenza Virus Vaccine,quad Im,preserve Free 65+ (FLUAD) 2021-07-04 00:00:00 Completed [facility] Influenza Virus Vaccine,quad Im,preserve Free 65+ (FLUAD) 2021-07-04 00:00:00 Completed [facility] Influenza Virus Vaccine,quad Im,preserve Free 65+ (FLUAD) 2021-07-04 00:00:00 Completed [facility] Influenza Virus Vaccine,quad Im,preserve Free 65+ (FLUAD) 2021-07-04 00:00:00 Completed [facility] SARS-COV-2 COVID-19 PFIZER VACCINE 2020-12-13 00:00:00 Completed [facility] SARS-COV-2 COVID-19 PFIZER VACCINE 2020-12-13 00:00:00 Completed [facility] SARS-COV-2 COVID-19 PFIZER VACCINE 2020-12-13 00:00:00 Completed [facility] SARS-COV-2 COVID-19 PFIZER VACCINE 2020-12-13 00:00:00 Completed [facility] SARS-COV-2 COVID-19 PFIZER VACCINE 2020-12-13 00:00:00 Completed [facility] SARS-COV-2 COVID-19 PFIZER VACCINE 2020-12-13 00:00:00 Completed [facility] SARS-COV-2 COVID-19 PFIZER VACCINE 2020-12-13 00:00:00 Completed [facility] SARS-COV-2 COVID-19 PFIZER VACCINE 2020-12-13 00:00:00 Completed [facility] SARS-COV-2 COVID-19 PFIZER VACCINE 2020-12-13 00:00:00 Completed [facility] SARS-COV-2 COVID-19 PFIZER VACCINE 2020-12-13 00:00:00 Completed [facility] SARS-COV-2 COVID-19 PFIZER VACCINE 2020-12-13 00:00:00 Completed [facility] SARS-COV-2 COVID-19 PFIZER VACCINE 2020-12-13 00:00:00 Completed [facility] SARS-COV-2 COVID-19 PFIZER VACCINE 2020-12-13 00:00:00 Completed [facility] SARS-COV-2 COVID-19 PFIZER VACCINE 2020-12-13 00:00:00 Completed [facility] SARS-COV-2 COVID-19 PFIZER VACCINE 2020-12-13 00:00:00 Completed [facility] SARS-COV-2 COVID-19 PFIZER VACCINE 2020-12-13 00:00:00 Completed [facility] SARS-COV-2 COVID-19 PFIZER VACCINE 2020-12-13 00:00:00 Completed [facility] SARS-COV-2 COVID-19 PFIZER VACCINE 2020-12-13 00:00:00 Completed [facility] SARS-COV-2 COVID-19 PFIZER VACCINE 2020-12-13 00:00:00 Completed [facility] SARS-COV-2 COVID-19 PFIZER VACCINE 2020-12-13 00:00:00 Completed [facility] SARS-COV-2 COVID-19 PFIZER VACCINE 2020-12-13 00:00:00 Completed [facility] SARS-COV-2 COVID-19 PFIZER VACCINE 2020-12-13 00:00:00 Completed [facility] SARS-COV-2 COVID-19 PFIZER VACCINE 2020-12-13 00:00:00 Completed [facility] SARS-COV-2 COVID-19 PFIZER VACCINE 2020-12-13 00:00:00 Completed [facility] SARS-COV-2 COVID-19 PFIZER VACCINE 2020-12-13 00:00:00 Completed [facility] SARS-COV-2 COVID-19 PFIZER VACCINE 2020-12-13 00:00:00 Completed [facility] SARS-COV-2 COVID-19 PFIZER VACCINE 2020-12-13 00:00:00 Completed [facility] SARS-COV-2 COVID-19 PFIZER VACCINE 2020-12-13 00:00:00 Completed [facility] SARS-COV-2 COVID-19 PFIZER VACCINE 2020-12-13 00:00:00 Completed [facility] SARS-COV-2 COVID-19 PFIZER VACCINE 2020-12-13 00:00:00 Completed [facility] SARS-COV-2 COVID-19 PFIZER VACCINE 2020-12-13 00:00:00 Completed [facility] SARS-COV-2 COVID-19 PFIZER VACCINE 2020-12-13 00:00:00 Completed [facility] SARS-COV-2 COVID-19 PFIZER VACCINE 2020-12-13 00:00:00 Completed [facility] SARS-COV-2 COVID-19 PFIZER VACCINE 2020-12-13 00:00:00 Completed [facility] SARS-COV-2 COVID-19 PFIZER VACCINE 2020-12-13 00:00:00 Completed [facility] SARS-COV-2 COVID-19 PFIZER VACCINE 2020-12-13 00:00:00 Completed [facility] SARS-COV-2 COVID-19 PFIZER VACCINE 2020-12-13 00:00:00 Completed [facility] SARS-COV-2 COVID-19 PFIZER VACCINE 2020-12-13 00:00:00 Completed [facility] SARS-COV-2 COVID-19 PFIZER VACCINE 2020-12-13 00:00:00 Completed [facility] SARS-COV-2 COVID-19 PFIZER VACCINE 2020-12-13 00:00:00 Completed [facility] SARS-COV-2 COVID-19 PFIZER VACCINE 2020-12-13 00:00:00 Completed [facility] SARS-COV-2 COVID-19 PFIZER VACCINE 2020-12-13 00:00:00 Completed [facility] SARS-COV-2 COVID-19 PFIZER VACCINE 2020-12-13 00:00:00 Completed [facility] SARS-COV-2 COVID-19 PFIZER VACCINE 2020-12-13 00:00:00 Completed [facility] SARS-COV-2 COVID-19 PFIZER VACCINE 2020-12-13 00:00:00 Completed [facility] SARS-COV-2 COVID-19 PFIZER VACCINE 2020-11-20 00:00:00 Completed [facility] SARS-COV-2 COVID-19 PFIZER VACCINE 2020-11-20 00:00:00 Completed [facility] SARS-COV-2 COVID-19 PFIZER VACCINE 2020-11-20 00:00:00 Completed [facility] SARS-COV-2 COVID-19 PFIZER VACCINE 2020-11-20 00:00:00 Completed [facility] SARS-COV-2 COVID-19 PFIZER VACCINE 2020-11-20 00:00:00 Completed [facility] SARS-COV-2 COVID-19 PFIZER VACCINE 2020-11-20 00:00:00 Completed [facility] SARS-COV-2 COVID-19 PFIZER VACCINE 2020-11-20 00:00:00 Completed [facility] SARS-COV-2 COVID-19 PFIZER VACCINE 2020-11-20 00:00:00 Completed [facility] SARS-COV-2 COVID-19 PFIZER VACCINE 2020-11-20 00:00:00 Completed [facility] SARS-COV-2 COVID-19 PFIZER VACCINE 2020-11-20 00:00:00 Completed [facility] SARS-COV-2 COVID-19 PFIZER VACCINE 2020-11-20 00:00:00 Completed [facility] SARS-COV-2 COVID-19 PFIZER VACCINE 2020-11-20 00:00:00 Completed [facility] SARS-COV-2 COVID-19 PFIZER VACCINE 2020-11-20 00:00:00 Completed [facility] SARS-COV-2 COVID-19 PFIZER VACCINE 2020-11-20 00:00:00 Completed [facility] SARS-COV-2 COVID-19 PFIZER VACCINE 2020-11-20 00:00:00 Completed [facility] SARS-COV-2 COVID-19 PFIZER VACCINE 2020-11-20 00:00:00 Completed [facility] SARS-COV-2 COVID-19 PFIZER VACCINE 2020-11-20 00:00:00 Completed [facility] SARS-COV-2 COVID-19 PFIZER VACCINE 2020-11-20 00:00:00 Completed [facility] SARS-COV-2 COVID-19 PFIZER VACCINE 2020-11-20 00:00:00 Completed [facility] SARS-COV-2 COVID-19 PFIZER VACCINE 2020-11-20 00:00:00 Completed [facility] SARS-COV-2 COVID-19 PFIZER VACCINE 2020-11-20 00:00:00 Completed [facility] SARS-COV-2 COVID-19 PFIZER VACCINE 2020-11-20 00:00:00 Completed [facility] SARS-COV-2 COVID-19 PFIZER VACCINE 2020-11-20 00:00:00 Completed [facility] SARS-COV-2 COVID-19 PFIZER VACCINE 2020-11-20 00:00:00 Completed [facility] SARS-COV-2 COVID-19 PFIZER VACCINE 2020-11-20 00:00:00 Completed [facility] SARS-COV-2 COVID-19 PFIZER VACCINE 2020-11-20 00:00:00 Completed [facility] SARS-COV-2 COVID-19 PFIZER VACCINE 2020-11-20 00:00:00 Completed [facility] SARS-COV-2 COVID-19 PFIZER VACCINE 2020-11-20 00:00:00 Completed [facility] SARS-COV-2 COVID-19 PFIZER VACCINE 2020-11-20 00:00:00 Completed [facility] SARS-COV-2 COVID-19 PFIZER VACCINE 2020-11-20 00:00:00 Completed [facility] SARS-COV-2 COVID-19 PFIZER VACCINE 2020-11-20 00:00:00 Completed [facility] SARS-COV-2 COVID-19 PFIZER VACCINE 2020-11-20 00:00:00 Completed [facility] SARS-COV-2 COVID-19 PFIZER VACCINE 2020-11-20 00:00:00 Completed [facility] SARS-COV-2 COVID-19 PFIZER VACCINE 2020-11-20 00:00:00 Completed [facility] SARS-COV-2 COVID-19 PFIZER VACCINE 2020-11-20 00:00:00 Completed [facility] SARS-COV-2 COVID-19 PFIZER VACCINE 2020-11-20 00:00:00 Completed [facility] SARS-COV-2 COVID-19 PFIZER VACCINE 2020-11-20 00:00:00 Completed [facility] SARS-COV-2 COVID-19 PFIZER VACCINE 2020-11-20 00:00:00 Completed [facility] SARS-COV-2 COVID-19 PFIZER VACCINE 2020-11-20 00:00:00 Completed [facility] SARS-COV-2 COVID-19 PFIZER VACCINE 2020-11-20 00:00:00 Completed [facility] SARS-COV-2 COVID-19 PFIZER VACCINE 2020-11-20 00:00:00 Completed [facility] SARS-COV-2 COVID-19 PFIZER VACCINE 2020-11-20 00:00:00 Completed [facility] SARS-COV-2 COVID-19 PFIZER VACCINE 2020-11-20 00:00:00 Completed [facility] SARS-COV-2 COVID-19 PFIZER VACCINE 2020-11-20 00:00:00 Completed [facility] FluAD FluAD 2018-05-08 10:08:00 Completed [facility] FluAD FluAD 2018-05-08 10:08:00 Completed [facility] FluAD FluAD 2018-05-08 10:08:00 Completed [facility] FluAD FluAD 2018-05-08 10:08:00 Completed [facility] FluAD FluAD 2018-05-08 10:08:00 Completed [facility] FluAD FluAD 2018-05-08 10:08:00 Completed [facility] FluAD FluAD 2018-05-08 10:08:00 Completed [facility] FluAD FluAD 2018-05-08 00:00:00 Completed [facility] Prevnar 20 (PCV20) Prevnar 20 (PCV20) Unknown Completed [facility] FluAD Quad SD FluAD Quad SD Unknown Completed [facility] FluAD FluAD Unknown Completed [facility] Prevnar 20 (PCV20) Prevnar 20 (PCV20) Unknown Completed [facility] FluAD Quad SD FluAD Quad SD Unknown Completed [facility] FluAD FluAD Unknown Completed [facility] Prevnar 20 (PCV20) Prevnar 20 (PCV20) Unknown Completed [facility] FluAD Quad SD FluAD Quad SD Unknown Completed [facility] FluAD FluAD Unknown Completed [facility] Prevnar 20 (PCV20) Prevnar 20 (PCV20) Unknown Completed [facility] Fluad (aIIV4) - SDS - 0.5mL Fluad (aIIV4) - SDS - 0.5mL Unknown Completed [facility] FluAD FluAD Unknown Completed [facility] Prevnar 20 (PCV20) Prevnar 20 (PCV20) Unknown Completed [facility] Fluad (aIIV4) - SDS - 0.5mL Fluad (aIIV4) - SDS - 0.5mL Unknown Completed [facility] FluAD FluAD Unknown Completed [facility] Prevnar 20 (PCV20) Prevnar 20 (PCV20) Unknown Completed [facility] Fluad (aIIV4) - SDS - 0.5mL Fluad (aIIV4) - SDS - 0.5mL Unknown Completed [facility] FluAD FluAD Unknown Completed [facility] Prevnar 20 (PCV20) Prevnar 20 (PCV20) Unknown Completed [facility] Fluad (aIIV4) - SDS - 0.5mL Fluad (aIIV4) - SDS - 0.5mL Unknown Completed [facility] FluAD FluAD Unknown Completed [facility] Prevnar 20 (PCV20) Prevnar 20 (PCV20) Unknown Completed [facility] Fluad (aIIV4) - SDS - 0.5mL Fluad (aIIV4) - SDS - 0.5mL Unknown Completed [facility] FluAD FluAD Unknown Completed [facility] Prevnar 20 (PCV20) Prevnar 20 (PCV20) Unknown Completed [facility] Fluad (aIIV4) - SDS - 0.5mL Fluad (aIIV4) - SDS - 0.5mL Unknown Completed [facility] FluAD FluAD Unknown Completed [facility] Prevnar 20 (PCV20) Prevnar 20 (PCV20) Unknown Completed [facility] Fluad (aIIV4) - SDS - 0.5mL Fluad (aIIV4) - SDS - 0.5mL Unknown Completed [facility] FluAD FluAD Unknown Completed [facility] Prevnar 20 (PCV20) Prevnar 20 (PCV20) Unknown Completed [facility] Fluad (aIIV4) - SDS - 0.5mL Fluad (aIIV4) - SDS - 0.5mL Unknown Completed [facility] FluAD FluAD Unknown Completed [facility] Prevnar 20 (PCV20) Prevnar 20 (PCV20) Unknown Completed [facility] Fluad (aIIV4) - SDS - 0.5mL Fluad (aIIV4) - SDS - 0.5mL Unknown Completed [facility] FluAD FluAD Unknown Completed [facility] Prevnar 20 (PCV20) Prevnar 20 (PCV20) Unknown Completed [facility] Fluad (aIIV4) - SDS - 0.5mL Fluad (aIIV4) - SDS - 0.5mL Unknown Completed [facility] FluAD FluAD Unknown Completed [facility] Prevnar 20 (PCV20) Prevnar 20 (PCV20) Unknown Completed [facility] Fluad (aIIV4) - SDS - 0.5mL Fluad (aIIV4) - SDS - 0.5mL Unknown Completed [facility] FluAD FluAD Unknown Completed [facility] Prevnar 20 (PCV20) Prevnar 20 (PCV20) Unknown Completed [facility] Fluad (aIIV4) - SDS - 0.5mL Fluad (aIIV4) - SDS - 0.5mL Unknown Completed [facility] FluAD FluAD Unknown Completed [facility] Prevnar 20 (PCV20) Prevnar 20 (PCV20) Unknown Completed [facility] Fluad (aIIV4) - SDS - 0.5mL Fluad (aIIV4) - SDS - 0.5mL Unknown Completed [facility] FluAD FluAD Unknown Completed [facility] Vital Signs Vital Name Observation Time Observation Value Comments S ource Systolic blood pressure 2024-10-17 14:19:00 169 mm[Hg] [facility] Diastolic blood pressure 2024-10-17 14:19:00 66 mm[Hg] [facility] Heart rate 2024-10-17 14:19:00 63 /min [facility] Oxygen saturation in Arterial blood by Pulse oximetry 2024-10-17 14:19:00 99 /min [facility] Respiratory rate 2024-10-17 14:15:00 20 /min [facility] Body weight 2024-10-17 14:15:00 48.58 kg [facility] BMI 2024-10-17 14:15:00 23.18 kg/m2 [facility] BMI (Body Mass Index) 2024-10-14 00:00:00 22.9 kg/m2 [facility] Height 2024-10-14 00:00:00 57 [in_i] [facility] BP Diastolic 2024-10-14 00:00:00 62 mm[Hg] [facility] Body Weight 2024-10-14 00:00:00 106 [lb_av] [facility] BP Systolic 2024-10-14 00:00:00 148 mm[Hg] [facility] Systolic blood pressure 2024-09-15 18:45:00 119 mm[Hg] [facility] Diastolic blood pressure 2024-09-15 18:45:00 50 mm[Hg] [facility] Heart rate 2024-09-15 18:45:00 60 /min [facility] Body temperature 2024-09-15 18:45:00 36.33 Marie [facility] Respiratory rate 2024-09-15 18:45:00 16 /min [facility] Body weight 2024-09-15 18:45:00 47.628 kg [facility] BMI 2024-09-15 18:45:00 22.72 kg/m2 [facility] Oxygen saturation in Arterial blood by Pulse oximetry 2024-09-15 18:45:00 97 /min [facility] BP Systolic 2024-09-09 00:00:00 142 mm[Hg] [facility] Body Weight 2024-09-09 00:00:00 107 [lb_av] [facility] BMI (Body Mass Index) 2024-09-09 00:00:00 23.2 kg/m2 [facility] BP Diastolic 2024-09-09 00:00:00 55 mm[Hg] [facility] Height 2024-09-09 00:00:00 57 [in_i] [facility] Systolic blood pressure 2024-08-18 19:19:00 121 mm[Hg] [facility] Diastolic blood pressure 2024-08-18 19:19:00 57 mm[Hg] [facility] Heart rate 2024-08-18 19:19:00 60 /min [facility] Body temperature 2024-08-18 19:19:00 37.06 Marie [facility] Body height 2024-08-18 19:19:00 144.8 cm [facility] Body weight 2024-08-18 19:19:00 47.174 kg [facility] BMI 2024-08-18 19:19:00 22.51 kg/m2 [facility] Oxygen saturation in Arterial blood by Pulse oximetry 2024-08-18 19:19:00 98 /min [facility] Systolic blood pressure 2024-08-15 06:00:00 125 mm[Hg] [facility] Diastolic blood pressure 2024-08-15 06:00:00 49 mm[Hg] [facility] Heart rate 2024-08-15 06:00:00 63 /min [facility] Respiratory rate 2024-08-15 06:00:00 16 /min [facility] Oxygen saturation in Arterial blood by Pulse oximetry 2024-08-15 06:00:00 96 /min [facility] Body temperature 2024-08-15 04:04:00 36.5 Marie [facility] Body height 2024-08-15 04:04:00 142.2 cm [facility] Body weight 2024-08-15 04:04:00 47.344 kg [facility] BMI 2024-08-15 04:04:00 23.40 kg/m2 [facility] Height 2024-08-07 00:00:00 57 [in_i] [facility] height 2024-07-11 08:45:00 57 [in_i] [facility] weight 2024-07-11 08:45:00 107.4 [lb_av] [facility] temperature 2024-07-11 08:45:00 96.8 [degF] [facility] bmi 2024-07-11 08:45:00 23.24 kg/m2 [facility] oximetry 2024-07-11 08:45:00 99 % [facility] respiratory rate 2024-07-11 08:45:00 17 /min [facility] blood pressure systolic 2024-07-11 08:45:00 128 mm[Hg] [facility] blood pressure diastolic 2024-07-11 08:45:00 68 mm[Hg] [facility] Systolic blood pressure 2024-06-26 15:08:00 144 mm[Hg] [facility] Diastolic blood pressure 2024-06-26 15:08:00 69 mm[Hg] [facility] Heart rate 2024-06-26 15:06:00 61 /min [facility] Respiratory rate 2024-06-26 15:06:00 18 /min [facility] Body height 2024-06-26 15:06:00 144.8 cm [facility] Body weight 2024-06-26 15:06:00 47.809 kg [facility] BMI 2024-06-26 15:06:00 22.81 kg/m2 [facility] Oxygen saturation in Arterial blood by Pulse oximetry 2024-06-26 15:06:00 100 /min [facility] Height 2024-06-24 00:00:00 57 [in_i] [facility] Systolic blood pressure 2024-06-13 15:41:00 133 mm[Hg] [facility] Diastolic blood pressure 2024-06-13 15:41:00 54 mm[Hg] [facility] Heart rate 2024-06-13 15:41:00 60 /min [facility] Respiratory rate 2024-06-13 15:41:00 16 /min [facility] Body height 2024-06-13 15:41:00 144.8 cm [facility] Body weight 2024-06-13 15:41:00 47.083 kg [facility] BMI 2024-06-13 15:41:00 22.46 kg/m2 [facility] Oxygen saturation in Arterial blood by Pulse oximetry 2024-06-13 15:41:00 98 /min [facility] Height 2024-05-21 00:00:00 57 [in_i] [facility] BMI (Body Mass Index) 2024-05-21 00:00:00 23.2 kg/m2 [facility] BP Systolic 2024-05-21 00:00:00 109 mm[Hg] [facility] BP Diastolic 2024-05-21 00:00:00 54 mm[Hg] [facility] Body Weight 2024-05-21 00:00:00 107.4 [lb_av] [facility] Systolic blood pressure 2024-05-12 16:40:00 131 mm[Hg] [facility] Diastolic blood pressure 2024-05-12 16:40:00 58 mm[Hg] [facility] Heart rate 2024-05-12 16:40:00 60 /min [facility] Respiratory rate 2024-05-12 16:40:00 20 /min [facility] Body height 2024-05-12 16:40:00 142.2 cm [facility] Body weight 2024-05-12 16:40:00 47.628 kg [facility] BMI 2024-05-12 16:40:00 23.54 kg/m2 [facility] Oxygen saturation in Arterial blood by Pulse oximetry 2024-05-12 16:40:00 98 /min [facility] Systolic blood pressure 2024-05-10 18:22:00 116 mm[Hg] [facility] Diastolic blood pressure 2024-05-10 18:22:00 55 mm[Hg] [facility] Heart rate 2024-05-10 18:22:00 61 /min [facility] Body temperature 2024-05-10 18:22:00 37.11 Marie [facility] Respiratory rate 2024-05-10 18:22:00 12 /min [facility] Oxygen saturation in Arterial blood by Pulse oximetry 2024-05-10 18:22:00 99 /min [facility] Body height 2024-05-10 15:52:00 149.9 cm [facility] Body weight 2024-05-10 15:52:00 46.267 kg [facility] BMI 2024-05-10 15:52:00 20.60 kg/m2 [facility] height 2024-04-18 15:20:00 57 [in_i] [facility] weight 2024-04-18 15:20:00 105 [lb_av] [facility] temperature 2024-04-18 15:20:00 97.5 [degF] [facility] bmi 2024-04-18 15:20:00 22.72 kg/m2 [facility] oximetry 2024-04-18 15:20:00 97 % [facility] respiratory rate 2024-04-18 15:20:00 17 /min [facility] blood pressure systolic 2024-04-18 15:20:00 129 mm[Hg] [facility] [facility] blood pressure diastolic 2024-04-18 15:20:00 60 mm[Hg] [facility] Systolic blood pressure 2024-03-17 18:02:00 109 mm[Hg] [facility] Diastolic blood pressure 2024-03-17 18:02:00 42 mm[Hg] [facility] Heart rate 2024-03-17 18:02:00 60 /min [facility] Body temperature 2024-03-17 18:02:00 36.94 Marie [facility] Body weight 2024-03-17 18:02:00 48.353 kg [facility] BMI 2024-03-17 18:02:00 23.90 kg/m2 [facility] Oxygen saturation in Arterial blood by Pulse oximetry 2024-03-17 18:02:00 98 /min [facility] height 2024-03-07 10:00:00 57 [in_i] [facility] weight 2024-03-07 10:00:00 106 [lb_av] [facility] temperature 2024-03-07 10:00:00 97.2 [degF] [facility] bmi 2024-03-07 10:00:00 22.94 kg/m2 [facility] oximetry 2024-03-07 10:00:00 96 % [facility] blood pressure systolic 2024-03-07 10:00:00 84 mm[Hg] [facility] blood pressure diastolic 2024-03-07 10:00:00 46 mm[Hg] [facility] height 2024-03-07 10:00:00 57 [in_i] [facility] weight 2024-03-07 10:00:00 106 [lb_av] [facility] temperature 2024-03-07 10:00:00 97.2 [degF] [facility] bmi 2024-03-07 10:00:00 22.94 kg/m2 [facility] oximetry 2024-03-07 10:00:00 96 % [facility] blood pressure systolic 2024-03-07 10:00:00 84 mm[Hg] [facility] blood pressure diastolic 2024-03-07 10:00:00 46 mm[Hg] [facility] Systolic blood pressure 2024-02-11 18:25:00 138 mm[Hg] [facility] Diastolic blood pressure 2024-02-11 18:25:00 59 mm[Hg] [facility] Heart rate 2024-02-11 18:25:00 60 /min [facility] Body temperature 2024-02-11 18:25:00 36.61 Marie [facility] Respiratory rate 2024-02-11 18:25:00 20 /min [facility] Body height 2024-02-11 18:25:00 142.2 cm [facility] Body weight 2024-02-11 18:25:00 48.988 kg [facility] BMI 2024-02-11 18:25:00 24.21 kg/m2 [facility] Oxygen saturation in Arterial blood by Pulse oximetry 2024-02-11 18:25:00 98 /min [facility] Systolic blood pressure 2024-01-14 18:26:00 144 mm[Hg] [facility] Diastolic blood pressure 2024-01-14 18:26:00 55 mm[Hg] [facility] Heart rate 2024-01-14 18:26:00 63 /min [facility] Body temperature 2024-01-14 18:25:00 36.44 Marie [facility] Respiratory rate 2024-01-14 18:25:00 18 /min [facility] Body height 2024-01-14 18:25:00 142.2 cm [facility] Body weight 2024-01-14 18:25:00 50.168 kg [facility] BMI 2024-01-14 18:25:00 24.80 kg/m2 [facility] Oxygen saturation in Arterial blood by Pulse oximetry 2024-01-14 18:25:00 99 /min [facility] Systolic blood pressure 2024-01-04 16:23:00 116 mm[Hg] [facility] Diastolic blood pressure 2024-01-04 16:23:00 52 mm[Hg] [facility] Heart rate 2024-01-04 16:23:00 60 /min [facility] Body temperature 2024-01-04 16:23:00 36.33 Marie [facility] Respiratory rate 2024-01-04 16:23:00 17 /min [facility] Body height 2024-01-04 16:23:00 144.8 cm [facility] Body weight 2024-01-04 16:23:00 48.217 kg [facility] BMI 2024-01-04 16:23:00 23.00 kg/m2 [facility] Oxygen saturation in Arterial blood by Pulse oximetry 2024-01-04 16:23:00 98 /min [facility] Systolic blood pressure 2023-12-28 18:15:00 112 mm[Hg] patient states this is her norm [facility] Diastolic blood pressure 2023-12-28 18:15:00 44 mm[Hg] patient states this is her norm [facility] Heart rate 2023-12-28 18:15:00 65 /min [facility] Respiratory rate 2023-12-28 18:15:00 18 /min [facility] Oxygen saturation in Arterial blood by Pulse oximetry 2023-12-28 18:15:00 98 /min [facility] Body temperature 2023-12-28 17:12:00 35.89 Marie [facility] Body height 2023-12-28 12:32:00 144.8 cm [facility] Body weight 2023-12-28 12:32:00 48.2 kg [facility] BMI 2023-12-28 12:32:00 22.99 kg/m2 [facility] Respiratory rate 2023-12-28 12:38:00 16 /min [facility] Systolic blood pressure 2023-12-28 12:32:00 131 mm[Hg] [facility] Diastolic blood pressure 2023-12-28 12:32:00 64 mm[Hg] [facility] Heart rate 2023-12-28 12:32:00 60 /min [facility] Body temperature 2023-12-28 12:32:00 36.22 Marie [facility] Body height 2023-12-28 12:32:00 144.8 cm [facility] Body weight 2023-12-28 12:32:00 48.2 kg [facility] BMI 2023-12-28 12:32:00 22.99 kg/m2 [facility] Oxygen saturation in Arterial blood by Pulse oximetry 2023-12-28 12:32:00 100 /min [facility] Systolic blood pressure 2023-12-27 18:29:00 107 mm[Hg] [facility] Diastolic blood pressure 2023-12-27 18:29:00 48 mm[Hg] [facility] Heart rate 2023-12-27 18:29:00 60 /min [facility] Body temperature 2023-12-27 18:29:00 36.44 Marie [facility] Respiratory rate 2023-12-27 18:29:00 17 /min [facility] Body height 2023-12-27 18:29:00 144.8 cm [facility] Body weight 2023-12-27 18:29:00 48.49 kg [facility] BMI 2023-12-27 18:29:00 23.13 kg/m2 [facility] Oxygen saturation in Arterial blood by Pulse oximetry 2023-12-27 18:29:00 96 /min [facility] Systolic blood pressure 2023-12-03 18:57:00 115 mm[Hg] [facility] Diastolic blood pressure 2023-12-03 18:57:00 46 mm[Hg] [facility] Heart rate 2023-12-03 18:57:00 60 /min [facility] Respiratory rate 2023-12-03 18:57:00 18 /min [facility] Body height 2023-12-03 18:57:00 144.8 cm [facility] Body weight 2023-12-03 18:57:00 48.081 kg [facility] BMI 2023-12-03 18:57:00 22.94 kg/m2 [facility] Oxygen saturation in Arterial blood by Pulse oximetry 2023-12-03 18:57:00 99 /min [facility] height 2023-11-09 09:30:00 57 [in_i] [facility] weight 2023-11-09 09:30:00 106.8 [lb_av] [facility] temperature 2023-11-09 09:30:00 97 [degF] [facility] bmi 2023-11-09 09:30:00 23.11 kg/m2 [facility] oximetry 2023-11-09 09:30:00 98 % [facility] blood pressure systolic 2023-11-09 09:30:00 102 mm[Hg] [facility] blood pressure diastolic 2023-11-09 09:30:00 52 mm[Hg] [facility] height 2023-11-09 09:40:00 57 [in_i] [facility] weight 2023-11-09 09:40:00 106.8 [lb_av] [facility] temperature 2023-11-09 09:40:00 97 [degF] [facility] bmi 2023-11-09 09:40:00 23.11 kg/m2 [facility] oximetry 2023-11-09 09:40:00 98 % [facility] blood pressure systolic 2023-11-09 09:40:00 102 mm[Hg] [facility] blood pressure diastolic 2023-11-09 09:40:00 52 mm[Hg] [facility] Systolic blood pressure 2023-11-05 15:54:00 109 mm[Hg] [facility] Diastolic blood pressure 2023-11-05 15:54:00 55 mm[Hg] [facility] Heart rate 2023-11-05 15:54:00 62 /min [facility] Body temperature 2023-11-05 15:54:00 36.67 Marie [facility] Respiratory rate 2023-11-05 15:54:00 18 /min [facility] Body height 2023-11-05 15:54:00 144.8 cm [facility] Body weight 2023-11-05 15:54:00 48.172 kg [facility] BMI 2023-11-05 15:54:00 22.98 kg/m2 [facility] Systolic blood pressure 2023-10-29 19:34:00 128 mm[Hg] [facility] Diastolic blood pressure 2023-10-29 19:34:00 54 mm[Hg] [facility] Heart rate 2023-10-29 19:34:00 70 /min [facility] Body temperature 2023-10-29 19:34:00 36.61 Marie [facility] Respiratory rate 2023-10-29 19:34:00 20 /min [facility] Body height 2023-10-29 19:34:00 142.2 cm [facility] Body weight 2023-10-29 19:34:00 49.442 kg [facility] BMI 2023-10-29 19:34:00 24.44 kg/m2 [facility] Oxygen saturation in Arterial blood by Pulse oximetry 2023-10-29 19:34:00 97 /min [facility] Systolic blood pressure 2023-09-21 17:00:00 115 mm[Hg] [facility] Diastolic blood pressure 2023-09-21 17:00:00 41 mm[Hg] [facility] Heart rate 2023-09-21 17:00:00 59 /min [facility] Respiratory rate 2023-09-21 17:00:00 15 /min [facility] Oxygen saturation in Arterial blood by Pulse oximetry 2023-09-21 17:00:00 98 /min [facility] Body height 2023-09-18 19:51:00 149.9 cm [facility] Body weight 2023-09-18 19:51:00 47.174 kg [facility] BMI 2023-09-18 19:51:00 21.01 kg/m2 [facility] Respiratory rate 2023-09-21 14:53:19 0 /min [facility] Systolic blood pressure 2023-09-21 13:43:43 155 mm[Hg] [facility] Diastolic blood pressure 2023-09-21 13:43:43 57 mm[Hg] [facility] Oxygen saturation in Arterial blood by Pulse oximetry 2023-09-21 13:43:43 100 /min [facility] Body height 2023-09-18 19:51:00 149.9 cm [facility] Body weight 2023-09-18 19:51:00 47.174 kg [facility] BMI 2023-09-18 19:51:00 21.01 kg/m2 [facility] Systolic blood pressure 2023-09-17 21:16:00 128 mm[Hg] [facility] Diastolic blood pressure 2023-09-17 21:16:00 49 mm[Hg] [facility] Heart rate 2023-09-17 21:16:00 56 /min [facility] Respiratory rate 2023-09-17 21:16:00 18 /min [facility] Body height 2023-09-17 21:16:00 149.9 cm [facility] Body weight 2023-09-17 21:16:00 47.174 kg [facility] BMI 2023-09-17 21:16:00 21.01 kg/m2 [facility] Oxygen saturation in Arterial blood by Pulse oximetry 2023-09-17 21:16:00 97 /min [facility] Systolic blood pressure 2023-08-30 16:28:00 119 mm[Hg] [facility] Diastolic blood pressure 2023-08-30 16:28:00 56 mm[Hg] [facility] Heart rate 2023-08-30 16:28:00 50 /min [facility] Respiratory rate 2023-08-30 16:28:00 16 /min [facility] Body height 2023-08-30 16:28:00 142.2 cm [facility] Body weight 2023-08-30 16:28:00 47.9 kg [facility] BMI 2023-08-30 16:28:00 23.68 kg/m2 [facility] Oxygen saturation in Arterial blood by Pulse oximetry 2023-08-30 16:28:00 98 /min [facility] height 2023-08-10 11:20:00 57 [in_i] [facility] weight 2023-08-10 11:20:00 105.4 [lb_av] [facility] temperature 2023-08-10 11:20:00 98 [degF] [facility] bmi 2023-08-10 11:20:00 22.81 kg/m2 [facility] oximetry 2023-08-10 11:20:00 98 % [facility] blood pressure systolic 2023-08-10 11:20:00 110 mm[Hg] [facility] blood pressure diastolic 2023-08-10 11:20:00 62 mm[Hg] [facility] Systolic blood pressure 2023-06-29 16:22:00 122 mm[Hg] [facility] Diastolic blood pressure 2023-06-29 16:22:00 58 mm[Hg] [facility] Heart rate 2023-06-29 16:22:00 66 /min [facility] Body height 2023-06-29 16:22:00 142.2 cm [facility] Body weight 2023-06-29 16:22:00 47.9 kg [facility] BMI 2023-06-29 16:22:00 23.68 kg/m2 [facility] Oxygen saturation in Arterial blood by Pulse oximetry 2023-06-29 16:22:00 95 /min [facility] Systolic blood pressure 2023-06-01 21:53:00 163 mm[Hg] [facility] Diastolic blood pressure 2023-06-01 21:53:00 66 mm[Hg] [facility] Heart rate 2023-06-01 21:53:00 65 /min [facility] Respiratory rate 2023-06-01 21:53:00 20 /min [facility] Body height 2023-06-01 21:53:00 144.8 cm [facility] Body weight 2023-06-01 21:53:00 45.813 kg [facility] BMI 2023-06-01 21:53:00 21.86 kg/m2 [facility] Oxygen saturation in Arterial blood by Pulse oximetry 2023-06-01 21:53:00 99 /min [facility] Systolic blood pressure 2023-05-19 18:32:00 157 mm[Hg] [facility] Diastolic blood pressure 2023-05-19 18:32:00 60 mm[Hg] [facility] Heart rate 2023-05-19 18:32:00 54 /min [facility] Body temperature 2023-05-19 18:32:00 36 Marie [facility] Respiratory rate 2023-05-19 18:32:00 20 /min [facility] Oxygen saturation in Arterial blood by Pulse oximetry 2023-05-19 18:32:00 99 /min [facility] Body height 2023-05-18 21:41:00 144.8 cm [facility] Body weight 2023-05-18 21:41:00 46.222 kg STANDING [facility] BMI 2023-05-18 21:41:00 22.05 kg/m2 [facility] Systolic blood pressure 2023-05-17 13:35:00 119 mm[Hg] [facility] Diastolic blood pressure 2023-05-17 13:35:00 59 mm[Hg] [facility] Heart rate 2023-05-17 13:35:00 54 /min [facility] Respiratory rate 2023-05-17 13:35:00 17 /min [facility] Body height 2023-05-17 13:35:00 144.8 cm [facility] Body weight 2023-05-17 13:35:00 46.811 kg [facility] BMI 2023-05-17 13:35:00 22.33 kg/m2 [facility] Oxygen saturation in Arterial blood by Pulse oximetry 2023-05-17 13:35:00 98 /min [facility] Systolic blood pressure 2023-05-07 13:35:00 158 mm[Hg] [facility] Diastolic blood pressure 2023-05-07 13:35:00 64 mm[Hg] [facility] Heart rate 2023-05-07 13:31:00 52 /min [facility] Respiratory rate 2023-05-07 13:31:00 18 /min [facility] Body height 2023-05-07 13:31:00 144.8 cm [facility] Body weight 2023-05-07 13:31:00 47.174 kg [facility] BMI 2023-05-07 13:31:00 22.51 kg/m2 [facility] height 2023-05-04 11:20:00 57 [in_i] [facility] weight 2023-05-04 11:20:00 104.0 [lb_av] [facility] temperature 2023-05-04 11:20:00 98.2 [degF] [facility] bmi 2023-05-04 11:20:00 22.5 kg/m2 [facility] oximetry 2023-05-04 11:20:00 98 % [facility] respiratory rate 2023-05-04 11:20:00 18 /min [facility] blood pressure systolic 2023-05-04 11:20:00 124 mm[Hg] [facility] blood pressure diastolic 2023-05-04 11:20:00 69 mm[Hg] [facility] Systolic blood pressure 2023-04-20 14:31:00 146 mm[Hg] [facility] Diastolic blood pressure 2023-04-20 14:31:00 53 mm[Hg] [facility] Heart rate 2023-04-20 14:31:00 55 /min [facility] Oxygen saturation in Arterial blood by Pulse oximetry 2023-04-20 14:31:00 97 /min [facility] Body temperature 2023-04-20 14:28:00 36.56 Marie [facility] Respiratory rate 2023-04-20 14:28:00 17 /min [facility] Body height 2023-04-20 14:28:00 144.8 cm [facility] Body weight 2023-04-20 14:28:00 47.628 kg [facility] BMI 2023-04-20 14:28:00 22.72 kg/m2 [facility] Systolic blood pressure 2023-04-10 20:41:00 157 mm[Hg] [facility] Diastolic blood pressure 2023-04-10 20:41:00 63 mm[Hg] [facility] Heart rate 2023-04-10 20:41:00 59 /min [facility] Body temperature 2023-04-10 20:41:00 36.89 Marie [facility] Respiratory rate 2023-04-10 20:41:00 18 /min [facility] Oxygen saturation in Arterial blood by Pulse oximetry 2023-04-10 20:41:00 97 /min [facility] Body height 2023-04-10 10:35:00 144.8 cm [facility] Body weight 2023-04-10 10:35:00 47.174 kg [facility] BMI 2023-04-10 10:35:00 22.51 kg/m2 [facility] Systolic blood pressure 2023-04-07 16:29:00 115 mm[Hg] [facility] Diastolic blood pressure 2023-04-07 16:29:00 54 mm[Hg] [facility] Heart rate 2023-04-07 16:29:00 58 /min [facility] Body temperature 2023-04-07 16:29:00 36.89 Marie [facility] Respiratory rate 2023-04-07 16:29:00 18 /min [facility] Oxygen saturation in Arterial blood by Pulse oximetry 2023-04-07 16:29:00 96 /min [facility] Body weight 2023-04-07 08:24:00 49.47 kg [facility] BMI 2023-04-07 08:24:00 23.60 kg/m2 [facility] Body height 2023-04-06 19:32:00 144.8 cm [facility] Systolic blood pressure 2023-04-06 16:06:31 174 mm[Hg] [facility] Diastolic blood pressure 2023-04-06 16:06:31 73 mm[Hg] [facility] Respiratory rate 2023-04-06 16:06:31 17 /min [facility] Oxygen saturation in Arterial blood by Pulse oximetry 2023-04-06 16:06:31 100 /min [facility] Heart rate 2023-04-06 15:22:35 56 /min [facility] Body weight 2023-04-06 12:44:00 48.081 kg [facility] BMI 2023-04-06 12:44:00 23.60 kg/m2 [facility] Systolic blood pressure 2023-03-07 15:50:00 155 mm[Hg] [facility] Diastolic blood pressure 2023-03-07 15:50:00 58 mm[Hg] [facility] Heart rate 2023-03-07 15:43:00 57 /min [facility] Body temperature 2023-03-07 15:43:00 36.56 Marie [facility] Respiratory rate 2023-03-07 15:43:00 18 /min [facility] Body height 2023-03-07 15:43:00 144.8 cm [facility] Body weight 2023-03-07 15:43:00 46.72 kg [facility] BMI 2023-03-07 15:43:00 22.29 kg/m2 [facility] Oxygen saturation in Arterial blood by Pulse oximetry 2023-03-07 15:43:00 99 /min [facility] Heart rate 2023-03-06 07:32:00 62 /min [facility] Oxygen saturation in Arterial blood by Pulse oximetry 2023-03-06 07:32:00 98 /min [facility] Systolic blood pressure 2023-03-06 07:00:00 162 mm[Hg] [facility] Diastolic blood pressure 2023-03-06 07:00:00 57 mm[Hg] [facility] Respiratory rate 2023-03-06 07:00:00 17 /min [facility] Body temperature 2023-03-06 03:54:00 36.22 Marie [facility] Body height 2023-03-06 03:54:00 144.8 cm [facility] Body weight 2023-03-06 03:54:00 46.72 kg [facility] BMI 2023-03-06 03:54:00 22.29 kg/m2 [facility] Systolic blood pressure 2023-02-12 17:31:00 166 mm[Hg] [facility] Diastolic blood pressure 2023-02-12 17:31:00 55 mm[Hg] [facility] Heart rate 2023-02-12 17:31:00 60 /min [facility] Body temperature 2023-02-12 17:31:00 36.72 Marie [facility] Respiratory rate 2023-02-12 17:31:00 18 /min [facility] Body height 2023-02-12 17:31:00 147.3 cm [facility] Body weight 2023-02-12 17:31:00 47.628 kg [facility] BMI 2023-02-12 17:31:00 21.95 kg/m2 [facility] Oxygen saturation in Arterial blood by Pulse oximetry 2023-02-12 17:31:00 99 /min [facility] height 2023-02-02 10:30:00 57 [in_i] [facility] weight 2023-02-02 10:30:00 105.3 [lb_av] [facility] temperature 2023-02-02 10:30:00 96.3 [degF] [facility] bmi 2023-02-02 10:30:00 22.78 kg/m2 [facility] oximetry 2023-02-02 10:30:00 97 % [facility] respiratory rate 2023-02-02 10:30:00 17 /min [facility] blood pressure systolic 2023-02-02 10:30:00 130 mm[Hg] [facility] blood pressure diastolic 2023-02-02 10:30:00 67 mm[Hg] [facility] Body weight 2022-12-19 12:32:00 46.72 kg [facility] BMI 2022-12-19 12:32:00 22.29 kg/m2 [facility] Body weight 2022-12-19 12:32:00 46.72 kg [facility] BMI 2022-12-19 12:32:00 22.29 kg/m2 [facility] Systolic blood pressure 2022-11-16 13:53:00 114 mm[Hg] [facility] Diastolic blood pressure 2022-11-16 13:53:00 36 mm[Hg] [facility] Heart rate 2022-11-16 13:53:00 59 /min [facility] Oxygen saturation in Arterial blood by Pulse oximetry 2022-11-16 13:53:00 97 /min [facility] Body temperature 2022-11-16 13:51:00 36.5 Marie [facility] Respiratory rate 2022-11-16 13:51:00 17 /min [facility] Body weight 2022-11-16 13:51:00 47.038 kg [facility] BMI 2022-11-16 13:51:00 22.44 kg/m2 [facility] height 2022-11-03 08:50:00 57 [in_i] [facility] weight 2022-11-03 08:50:00 102.6 [lb_av] [facility] temperature 2022-11-03 08:50:00 97.2 [degF] [facility] bmi 2022-11-03 08:50:00 22.2 kg/m2 [facility] oximetry 2022-11-03 08:50:00 99 % [facility] respiratory rate 2022-11-03 08:50:00 16 /min [facility] blood pressure systolic 2022-11-03 08:50:00 126 mm[Hg] [facility] blood pressure diastolic 2022-11-03 08:50:00 64 mm[Hg] [facility] height 2022-11-03 08:50:00 57 [in_i] [facility] weight 2022-11-03 08:50:00 102.6 [lb_av] [facility] temperature 2022-11-03 08:50:00 97.2 [degF] [facility] bmi 2022-11-03 08:50:00 22.2 kg/m2 [facility] oximetry 2022-11-03 08:50:00 99 % [facility] respiratory rate 2022-11-03 08:50:00 16 /min [facility] blood pressure systolic 2022-11-03 08:50:00 126 mm[Hg] [facility] blood pressure diastolic 2022-11-03 08:50:00 64 mm[Hg] [facility] Systolic blood pressure 2022-10-13 15:08:00 138 mm[Hg] [facility] Diastolic blood pressure 2022-10-13 15:08:00 51 mm[Hg] [facility] Heart rate 2022-10-13 15:08:00 55 /min [facility] Respiratory rate 2022-10-13 15:08:00 20 /min [facility] Body weight 2022-10-13 15:08:00 54.432 kg [facility] BMI 2022-10-13 15:08:00 25.97 kg/m2 [facility] Oxygen saturation in Arterial blood by Pulse oximetry 2022-10-13 15:08:00 98 /min [facility] Systolic blood pressure 2022-08-24 21:29:00 119 mm[Hg] [facility] Diastolic blood pressure 2022-08-24 21:29:00 50 mm[Hg] [facility] Heart rate 2022-08-24 21:29:00 71 /min [facility] Body temperature 2022-08-24 21:29:00 36.61 Amrie [facility] Respiratory rate 2022-08-24 21:29:00 17 /min [facility] Body height 2022-08-24 21:29:00 144.8 cm [facility] Body weight 2022-08-24 21:29:00 46.267 kg [facility] BMI 2022-08-24 21:29:00 22.07 kg/m2 [facility] Oxygen saturation in Arterial blood by Pulse oximetry 2022-08-24 21:29:00 98 /min [facility] Systolic blood pressure 2022-08-20 03:00:00 114 mm[Hg] [facility] Diastolic blood pressure 2022-08-20 03:00:00 53 mm[Hg] [facility] Heart rate 2022-08-20 03:00:00 70 /min [facility] Respiratory rate 2022-08-20 03:00:00 19 /min [facility] Oxygen saturation in Arterial blood by Pulse oximetry 2022-08-20 03:00:00 95 /min [facility] Body temperature 2022-08-20 00:44:00 36.61 Marie [facility] Body height 2022-08-20 00:44:00 144.8 cm [facility] Body weight 2022-08-20 00:44:00 46.267 kg [facility] BMI 2022-08-20 00:44:00 22.07 kg/m2 [facility] height 2022-08-11 08:40:00 57 [in_i] [facility] weight 2022-08-11 08:40:00 101.9 [lb_av] [facility] temperature 2022-08-11 08:40:00 97.1 [degF] [facility] bmi 2022-08-11 08:40:00 22.05 kg/m2 [facility] oximetry 2022-08-11 08:40:00 98 % [facility] respiratory rate 2022-08-11 08:40:00 16 /min [facility] blood pressure systolic 2022-08-11 08:40:00 138 mm[Hg] [facility] blood pressure diastolic 2022-08-11 08:40:00 63 mm[Hg] [facility] Systolic blood pressure 2022-07-12 21:31:00 117 mm[Hg] [facility] Diastolic blood pressure 2022-07-12 21:31:00 50 mm[Hg] [facility] Heart rate 2022-07-12 21:31:00 67 /min [facility] Body temperature 2022-07-12 21:31:00 37.11 Marie [facility] Respiratory rate 2022-07-12 21:31:00 18 /min [facility] Oxygen saturation in Arterial blood by Pulse oximetry 2022-07-12 21:31:00 97 /min [facility] Body weight 2022-07-12 12:00:00 45.269 kg [facility] BMI 2022-07-12 12:00:00 22.37 kg/m2 [facility] Body height 2022-07-11 22:34:00 142.2 cm [facility] Body weight 2022-07-11 13:00:00 46.267 kg [facility] BMI 2022-07-11 13:00:00 22.37 kg/m2 [facility] Systolic blood pressure 2022-04-18 16:25:00 125 mm[Hg] [facility] Diastolic blood pressure 2022-04-18 16:25:00 49 mm[Hg] [facility] Heart rate 2022-04-18 16:25:00 58 /min [facility] Respiratory rate 2022-04-18 16:25:00 17 /min [facility] Oxygen saturation in Arterial blood by Pulse oximetry 2022-04-18 16:25:00 95 /min [facility] Body weight 2022-04-18 14:00:00 45 kg [facility] BMI 2022-04-18 14:00:00 21.47 kg/m2 [facility] Systolic blood pressure 2022-04-18 13:25:05 131 mm[Hg] [facility] Diastolic blood pressure 2022-04-18 13:25:05 52 mm[Hg] [facility] Respiratory rate 2022-04-18 13:25:05 13 /min [facility] Oxygen saturation in Arterial blood by Pulse oximetry 2022-04-18 13:25:05 100 /min [facility] height 2022-03-09 09:30:00 57 [in_i] [facility] weight 2022-03-09 09:30:00 100 [lb_av] [facility] temperature 2022-03-09 09:30:00 98 [degF] [facility] bmi 2022-03-09 09:30:00 21.64 kg/m2 [facility] blood pressure systolic 2022-03-09 09:30:00 142 mm[Hg] [facility] blood pressure diastolic 2022-03-09 09:30:00 75 mm[Hg] [facility] Diastolic blood pressure 2022-03-06 13:40:00 60 mm[Hg] [facility] Heart rate 2022-03-06 13:40:00 61 /min [facility] Oxygen saturation in Arterial blood by Pulse oximetry 2022-03-06 13:40:00 99 /min [facility] Systolic blood pressure 2022-03-06 13:40:00 157 mm[Hg] [facility] Body temperature 2022-03-06 13:39:00 36 Marie [facility] Respiratory rate 2022-03-06 13:39:00 16 /min [facility] Body weight 2022-03-06 13:39:00 45.632 kg [facility] BMI 2022-03-06 13:39:00 21.77 kg/m2 [facility] height 2021-11-09 08:50:00 57 [in_i] [facility] weight 2021-11-09 08:50:00 99.3 [lb_av] [facility] temperature 2021-11-09 08:50:00 97.0 [degF] [facility] bmi 2021-11-09 08:50:00 21.49 kg/m2 [facility] oximetry 2021-11-09 08:50:00 95 % [facility] respiratory rate 2021-11-09 08:50:00 16 /min [facility] blood pressure systolic 2021-11-09 08:50:00 138 mm[Hg] [facility] blood pressure diastolic 2021-11-09 08:50:00 77 mm[Hg] [facility] height 2021-11-09 09:00:00 57 [in_i] [facility] weight 2021-11-09 09:00:00 99.3 [lb_av] [facility] temperature 2021-11-09 09:00:00 97 [degF] [facility] bmi 2021-11-09 09:00:00 21.49 kg/m2 [facility] oximetry 2021-11-09 09:00:00 95 % [facility] respiratory rate 2021-11-09 09:00:00 16 /min [facility] blood pressure systolic 2021-11-09 09:00:00 138 mm[Hg] [facility] blood pressure diastolic 2021-11-09 09:00:00 77 mm[Hg] [facility] height 2021-07-27 09:30:00 57 [in_i] [facility] weight 2021-07-27 09:30:00 100.4 [lb_av] [facility] temperature 2021-07-27 09:30:00 97.4 [degF] [facility] bmi 2021-07-27 09:30:00 21.72 kg/m2 [facility] oximetry 2021-07-27 09:30:00 99 % [facility] respiratory rate 2021-07-27 09:30:00 17 /min [facility] blood pressure systolic 2021-07-27 09:30:00 134 mm[Hg] [facility] blood pressure diastolic 2021-07-27 09:30:00 62 mm[Hg] [facility] height 2021-03-24 09:30:00 57 [in_i] [facility] weight 2021-03-24 09:30:00 104.2 [lb_av] [facility] temperature 2021-03-24 09:30:00 97.0 [degF] [facility] bmi 2021-03-24 09:30:00 22.55 kg/m2 [facility] oximetry 2021-03-24 09:30:00 98 % [facility] respiratory rate 2021-03-24 09:30:00 16 /min [facility] blood pressure systolic 2021-03-24 09:30:00 136 mm[Hg] [facility] blood pressure diastolic 2021-03-24 09:30:00 60 mm[Hg] [facility] Procedures Procedure Date / Time Performed Performing Clinician Source CARDIAC DEVICE CHECK - REMOTE - PACEMAKER 2024-11-25 05:01:37 Stephanie Sykes [facility] CARDIAC DEVICE CHECK - REMOTE - PACEMAKER 2024-10-14 12:40:08 Stephanie Sykes [facility] Transurethral Cystoscopy 2024-09-09 00:00:00 [facility] DUPLEX VENOUS ARM LEFT - BY VASCULAR LAB 2024-08-29 15:37:57 Naomy Bravo [facility] XR CHEST 1 VW 2024-08-15 04:39:00 Ernestine Miles [facility] LIPASE 2024-08-15 04:22:00 Ernestine Miles [facility] TROPONIN I 2024-08-15 04:22:00 Ernestine Miles [facility] COMP. METABOLIC PANEL ([id number]) 2024-08-15 04:22:00 Ernestine Miles [facility] CBC WITH DIFF 2024-08-15 04:22:00 Ernestine Miles [facility] URINALYSIS 2024-08-15 04:22:00 Ernestine Miles [facility] JAREN EXTREMITY SINGLE LEVEL - BY VASCULAR LAB 2024-07-11 20:16:26 Liang Thorpe [facility] CAROTID DUPLEX BILATERAL - BY VASCULAR LAB 2024-07-11 20:16:21 Liang Thorpe [facility] LOWER EXTREMITY ARTERIAL DUPLEX BILATERAL - BY VASCULAR LAB 2024-07-11 20:16:16 Gabriel Vick [facility] FLU VACC(),65+YR,0.5 ML,IM,ADJUVANTED,TIV(FLUAD) 2024-06-13 15:48:58 Naomy Bravo [facility] US TRANSVAGINAL 2024-05-30 00:00:00 [facility] EKG-12 LEAD 2024-05-10 18:18:10 Micaela Howard [facility] TROPONIN I 2024-05-10 17:21:00 Micaela Howard [facility] MAGNESIUM 2024-05-10 16:00:00 Micaela Howard [facility] TROPONIN I 2024-05-10 16:00:00 Micaela Howard [facility] COMP. METABOLIC PANEL ([id number]) 2024-05-10 16:00:00 Micaela Howard [facility] CBC WITH DIFF 2024-05-10 16:00:00 Micaela Howard [facility] N-TERMINAL PRO-BNP 2024-05-10 16:00:00 Micaela Howard [facility] JAREN MULTI LEVEL - BY VASCULAR LAB 2024-03-10 16:36:14 Liang Thorpe [facility] DUPLEX ARTERIAL LEG RIGHT - BY VASCULAR LAB 2024 16:26:58 Josep Gould [facility] VENOUS REFLUX DUPLEX BILATERAL - BY VASCULAR LAB 2024 16:26:51 Josep Gould [facility] FL TIME OR (NON-REPORTABLE) 2023-12-28 16:05:00 Liang Thorpe [facility] FL TIME OR (NON-REPORTABLE) 2023-12-28 16:05:00 Liang Thorpe [facility] [id number] - CHG ANGIOGRAPHY EXTREMITY BILATERAL RS&I 2023-12-28 14:41:00 Liang Thorpe [facility] [id number] - CHG AORTOGRAPHY ABDOMINAL SERIALOGRAPHY RS&I 2023-12-28 14:41:00 Liang Thorpe [facility] 28924 - CHG US VASC ACCESS SITS VSL PATENCY NDL ENTRY 2023-12-28 14:41:00 Liang Thorpe [facility] 09287 - NM SLCTV CATHJ 3RD+ ORD SLCTV ABDL PEL/LXTR [facility] 2023-12-28 14:41:00 Liang Thorpe [facility] 84369 - NM SLCTV CATHJ EA 2ND+ ORD ABDL PEL/LXTR ART [facility] 2023-12-28 14:41:00 Liang Thorpe [facility] 32250 - NM REVSC OPN/PRQ ILIAC ART W/STNT PLMT & ANGIOPLSTY 2023-12-28 14:41:00 Liang Thorpe [facility] 03108 - NM REVSC OPN/PRQ FEM/POP W/STNT/ATHRC/ANGIOP [facility] 2023-12-28 14:41:00 Liang Thorpe [facility] 61784 - NM REVSC OPN/PRQ TIB/IRASEMA W/STNT/ATHR/ANGIOP [facility] 2023-12-28 14:41:00 Liang Thorpe [facility] 80802 - NM THROMBOLYSIS ARTERIAL INFUSION ICRA RS&I INIT [place] 2023-12-28 14:41:00 Liang Thorpe [facility] POCT GLUCOSE (AUTOMATED) 2023-12-28 12:51:00 Liang Thorpe [facility] POCT GLUCOSE (AUTOMATED) 2023-12-28 12:51:00 Liang Thorpe [facility] MAGNESIUM 2023-11-09 18:18:00 Naomy Bravo.HAviva [facility] BASIC METABOLIC PANEL (NA, K, CL, CO2, GLUCOSE, BUN, CREATININE, CA) 2023-11-09 18:18:00 Naomy Bravo K.HAviva [facility] N-TERMINAL PRO-BNP 2023-11-09 18:18:00 Naomy Bravo K.HAviva [facility] CARDIAC CATHETERIZATION 2023-09-21 15:03:13 [facility]ED[facility] 2023-09-21 15:03:13 [facility]ED[facility] 2023-09-21 15:03:13 Onel [facility] HB ECG ROUTINE & RHYTHM STRIP 2023-09-21 13:33:27 [facility]ED[facility] 2023-09-21 06:01:00 Doctor Unassigned, [place] [facility] CBC WITH DIFF 2023-09-10 14:52:00 Vidhya Sykesksroxy [facility] HB ECG ROUTINE & RHYTHM STRIP 2023-08-30 16:24:12 Onel [facility] JAREN EXTREMITY SINGLE LEVEL - BY VASCULAR LAB 2023-06-01 21:15:00 Onel [facility] POCT GLUCOSE (AUTOMATED) 2023-05-19 15:16:00 Nilam Flores [facility] MAGNESIUM 2023-05-19 09:32:00 Alek Faria [facility] THYROID STIMULATING HORMONE 2023-05-19 09:32:00 [facility] BASIC METABOLIC PANEL (NA, K, CL, CO2, GLUCOSE, BUN, CREATININE, CA) 2023-05-19 09:32:00 [facility] VITAMIN B12, LEVEL 2023-05-19 03:57:00 [facility] TROPONIN I 2023-05-19 03:57:00 [facility] IRON PANEL 2023-05-19 03:57:00 [facility] VITAMIN D, 25-OH 2023-05-19 03:57:00 [facility] POCT GLUCOSE (AUTOMATED) 2023-05-19 03:01:00 Nilam Flores [facility] POCT GLUCOSE (AUTOMATED) 2023-05-18 21:43:00 Nilam Flores [facility] XR CHEST 1 VW 2023-05-18 16:45:00 Noel Camarena [facility] TROPONIN I 2023-05-18 16:22:00 Noel Camarena [facility] BASIC METABOLIC PANEL (NA, K, CL, CO2, GLUCOSE, BUN, CREATININE, CA) 2023-05-18 16:22:00 Noel Camarena [facility] CBC WITH DIFF 2023-05-18 16:22:00 Nicol [facility] N-TERMINAL PRO-BNP 2023-05-18 16:22:00 Noel Camarena [facility] HB ECG ROUTINE & RHYTHM STRIP 2023-05-18 15:53:38 Nicol [facility] CONSENT/REFUSAL FOR DIAGNOSIS AND TREATMENT 2023-05-18 15:48:08 Doctor Unassigned, [place] [facility] POCT GLUCOSE (AUTOMATED) 2023-04-10 22:01:00 Abu-AlexishPerla [facility] ACTIVATED PARTIAL THRMPLAS KOJO 2023-04-10 19:17:00 Wander Liriano [facility] POCT GLUCOSE (AUTOMATED) 2023-04-10 19:14:00 Abu-Alexish [facility] TROPONIN I 2023-04-10 16:09[facility]00 [facility] 2023-04-10 15:28:00 Abu-Sarah [facility] TRANSTHORACIC ECHO (TTE) COMPLETE W/ CONTRAST 2023-04-10 15:14:15 Briana Adam [facility] POCT GLUCOSE (AUTOMATED) 2023-04-10 12:37:00 [facility] CK (CREATINE KINASE) + MB 2023-04-10 10:59:00 Timi Moore [facility] MAGNESIUM 2023-04-10 10:59:00 Wander Liriano [facility] TROPONIN I 2023-04-10 10:59:00 Wander Liriano [facility] BASIC METABOLIC PANEL (NA, K, CL, CO2, GLUCOSE, BUN, CREATININE, CA) 2023-04-10 10:59:00 Wander Liriano [facility] CBC WITH DIFF 2023-04-10 10:59:00 Heri [facility] PROTHROMBIN TIME / INR 2023-04-10 10:59:00 Wander Liriano [facility] ACTIVATED PARTIAL THRMPLAS KOJO 2023-04-10 10:59:00 Wander Liriano [facility] POCT GLUCOSE (AUTOMATED) 2023-04-07 17:16:00 Rell [facility] POCT GLUCOSE (AUTOMATED) 2023-04-07 17:16:00 Rell [facility] MAGNESIUM 2023-04-07 13:54:00 Deguesuman, [facility] BASIC METABOLIC PANEL (NA, K, CL, CO2, GLUCOSE, BUN, CREATININE, CA) 2023-04-07 13:54:00 Degueure [facility] MAGNESIUM 2023-04-07 13:54:00 Degueure, [facility] BASIC METABOLIC PANEL (NA, K, CL, CO2, GLUCOSE, BUN, CREATININE, CA) 2023-04-07 13:54:00 Deguesuman [facility] POCT GLUCOSE (AUTOMATED) 2023-04-07 13:53:00 Rell [facility] POCT GLUCOSE (AUTOMATED) 2023-04-07 13:53:00 Rell [facility] CBC WITH DIFF 2023-04-07 10:42:00 Degueure, [facility] CBC WITH DIFF 2023-04-07 10:42:00 Deguesuman [facility] POCT GLUCOSE (AUTOMATED) 2023-04-07 03:41:00 Rell [facility] POCT GLUCOSE (AUTOMATED) 2023-04-07 03:41:00 Rell [facility] MAGNESIUM 2023-04-06 21:17:00 Degueure, [facility] COMP. METABOLIC PANEL ([id number]) 2023-04-06 21:17:00 Degueure, [facility] CBC WITHOUT DIFF 2023-04-06 21:17:00 Degueure, [facility] MAGNESIUM 2023-04-06 21:17:00 Degueure, [facility] COMP. METABOLIC PANEL ([id number]) 2023-04-06 21:17:00 Degueure, [facility] CBC WITHOUT DIFF 2023-04-06 21:17:00 Romy Shen [facility] POCT GLUCOSE (AUTOMATED) 2023-04-06 20:59:00 Isaiah Zacarias [facility] POCT GLUCOSE (AUTOMATED) 2023-04-06 20:59:00 Isaiah Zacarias [facility] CARDIAC CATHETERIZATION 2023-04-06 16:47:12 Bravo, Sendellie [facility] CARDIAC CATHETERIZATION 2023-04-06 16:47:12 Bravo, Sendil [facility] CARDIAC CATHETERIZATION 2023-04-06 16:47:12 Bravo, Sendil [facility] CARDIAC CATHETERIZATION 2023-04-06 16:47:12 Bravo Sendellie [facility] CARDIAC CATHETERIZATION 2023-04-06 16:47:12 Bravo, Sendil [facility] CARDIAC CATHETERIZATION 2023-04-06 16:47:12 Bravo, Sendil [facility] CARDIAC CATHETERIZATION 2023-04-06 16:47:12 Bravo, Sendil [facility] POCT ACT LOW RANGE 2023-04-06 16:40:00 Naga Lakhani [facility] POCT ACT LOW RANGE 2023-04-06 16:14:00 Naga Lakhani [facility] TROPONIN I 2023-03-06 06:33:00 Romeo Mendieta [facility] TROPONIN I 2023-03-06 04:15:00 Romeo Mendieta [facility] COMP. METABOLIC PANEL ([id number]) 2023-03-06 04:15:00 Romeo Mendieta [facility] CBC WITH DIFF 2023-03-06 04:15:00 Romeo Mendieta [facility] PROTHROMBIN TIME / INR 2023-03-06 04:15:00 Romeo Mendieta [facility] N-TERMINAL PRO-BNP 2023-03-06 04:15:00 Romeo Mendieta [facility] ASSIGNMENT OF BENEFITS 2023-02-12 18:46:38 Doctor Unassigned, [place] [facility] CONSENT/REFUSAL FOR DIAGNOSIS AND TREATMENT 2023-02-12 17:23:04 Doctor Unassigned, [place] [facility] ELECTROPHYSIOLOGY PROCEDURE 2022-12-19 12:49:49 Brandon Arias [facility] ELECTROPHYSIOLOGY PROCEDURE 2022-12-19 12:49:00 Chloé Ariasf [facility] DISCLOSURE AND CONSENT, MEDICAL AND SURGICAL PROCEDURES 2022-12-19 05:01:00 Doctor Unassigned, [place] [facility] MEDICAL RELEASE/CLEARANCE FORMS 2022-09-12 06:01:00 Doctor Unassigned, [place] [facility] EKG-12 LEAD 2022-08-20 04:31:50 Romeo Mendieta [facility] XR CHEST 1 VW 2022-08-20 03:29:01 oRmeo Mendieta [facility] TROPONIN I 2022-08-20 01:57:00 Romeo Mendieta [facility] COMP. METABOLIC PANEL ([id number]) 2022-08-20 01:57:00 Romeo Mendieta [facility] CBC WITH DIFF 2022-08-20 01:57:00 Romeo Mendieta [facility] URINALYSIS 2022-08-20 01:57:00 Romeo Mendieta [facility] CONSENT/REFUSAL FOR DIAGNOSIS AND TREATMENT 2022-08-20 00:38:57 Doctor Unassigned, [place] [facility] POCT GLUCOSE (AUTOMATED) 2022-07-12 18:27:00 Pardeep Acosta [facility] POCT GLUCOSE (AUTOMATED) 2022-07-12 18:27:00 Pardeep Acosta [facility] TRANSTHORACIC ECHO (TTE) COMPLETE W/ CONTRAST 2022-07-12 16:00:03 Catherine Segovia [facility] TRANSTHORACIC ECHO (TTE) COMPLETE W/ CONTRAST 2022-07-12 16:00:03 Catherine Segovia [facility] POCT GLUCOSE (AUTOMATED) 2022-07-12 14:55:00 Pardeep Acosta [facility] POCT GLUCOSE (AUTOMATED) 2022-07-12 14:55:00 Pardeep Acosta [facility] HB ECG ROUTINE & RHYTHM STRIP 2022-07-12 13:59:42 Catherine Segovia [facility] MAGNESIUM 2022-07-12 10:37:00 Juliette [facility] BASIC METABOLIC PANEL (NA, K, CL, CO2, GLUCOSE, BUN, CREATININE, CA) 2022-07-12 10:37:00 Juliette Catherine [facility] LIPID PANEL ([id number])(TOTAL CHOLESTEROL, TRIGLYCERIDES, HDL) 2022-07-12 10:37:00 Catherine Segovia [facility] CBC WITH DIFF 2022-07-12 10:37:00 Juliette [facility] MAGNESIUM 2022-07-12 10:37:00 Juliette [facility] BASIC METABOLIC PANEL (NA, K, CL, CO2, GLUCOSE, BUN, CREATININE, CA) 2022-07-12 10:37:00 Catherine Segovia [facility] LIPID PANEL ([id number])(TOTAL CHOLESTEROL, TRIGLYCERIDES, HDL) 2022-07-12 10:37:00 Juliette [facility] CBC WITH DIFF 2022-07-12 10:37:00 Juliette [facility] GLYCOSYLATED HEMOGLOBIN (A1C) 2022-07-12 10:37:00 Juliette [facility] POCT GLUCOSE (AUTOMATED) 2022-07-12 03:46:00 Dave [facility] POCT GLUCOSE (AUTOMATED) 2022-07-12 03:46:00 Pardeep Acosta [facility] POCT GLUCOSE (AUTOMATED) 2022-07-12 00:08:00 Pardeep Acosta [facility] POCT GLUCOSE (AUTOMATED) 2022-07-12 00:08:[address] [facility] ([facility]OMATED) 2022-07-11 21:30:00 Naga Lakhani [facility] POCT GLUCOSE (AUTOMATED) 2022-07-11 21:30:00 Naga Lakhani [facility] CARDIAC CATHETERIZATION 2022-07-11 16:32:26 Naomy Bravo [facility] CARDIAC CATHETERIZATION 2022-07-11 16:32:26 Naomy Bravo [facility] CARDIAC CATHETERIZATION 2022-07-11 16:32:26 Naomy Bravo [facility] CATH PROCEDURE LOG 2022-07-11 15:12:31 Naomy Bravo [facility] CATH PROCEDURE LOG 2022-07-11 15:12:31 Naomy Bravo [facility] COMP. METABOLIC PANEL ([id number]) 2022-07-07 15:55:00 Naomy Bravo [facility] CBC WITH DIFF 2022-07-07 15:55:00 Naomy Bravo [facility] PROTHROMBIN TIME / INR 2022-07-07 15:55:00 Naomy Bravo [facility] ACTIVATED PARTIAL THRMPLAS KOJO 2022-07-07 15:55:00 Naomy Bravo [facility] N-TERMINAL PRO-BNP 2022-07-07 15:55:00 Naomy Bravo [facility] CARDIAC CATHETERIZATION 2022-04-18 14:01:40 Naomy Bravo [facility] CARDIAC CATHETERIZATION 2022-04-18 14:01:40 Naomy Bravo [facility] OUTPATIENT CARDIAC CATHETERIZATION DOCUMENTS 2022-04-18 05:01:00 Doctor Unassigned, [place] [facility] Encounters Start Date/Time End Date/Time Encounter Type Admission Type Attending [facility] Care Department Encounter ID Source 2024-07-11 08:24[facility] [id number] [facility] 2024-04-18 11:15:00 [facility] [id number] [facility] 2022-08-10 09:04:01 [facility] [id number] [facility] 2022-08-08 09:10:00 Outpatient Strickland, Cydney STLMLC ST[facility] [id number] [facility] 2022-07-06 15:20:00 Outpatient Strickland, Cydney STLMLC STLMLC [id number] [facility] 2022-03-23 14:15:57 Outpatient MACRINA HENRIQUEZ [facility] [id number] [facility] 2021-08-17 14:33:36 Outpatient Strickland, Cydney STLMLC STLMLC [id number] [facility] 2021-08-17 12:59:39 Outpatient Strickland, Cydney STLMLC STLMLC [id number] [facility] 2021-08-17 12:59:09 Outpatient Strickland, Cydney STLMLC STLMLC [id number] [facility] 2021-08-17 12:25:40 Outpatient Strickland, Cydney STLMLC STLMLC [id number] [facility] 2021-08-17 12:11:56 Outpatient Strickland, Cydney STLMLC STLMLC [id number] [facility] 2021-08-17 11:21:41 Outpatient Strickland, Cydney STLMLC STLMLC [id number] [facility] 2021-08-17 11:16:02 Outpatient Strickland, Cydney STLMLC STLMLC [id number] [facility] 2021-08-17 11:07:32 Outpatient Strickland, Cydney STLMLC STLMLC [id number] [facility] 2021-08-17 11:07:20 Outpatient Strickland, Cydney STLMLC STLMLC [id number] [facility] 2021-08-17 11:06:39 Outpatient Strickland, Cydney STLMLC STLMLC [id number] [facility] 2021-05-23 00:00:12 Emergency [facility] [id number] [facility] 2024-11-12 00:00:00 2024-11-13 02:04:10 Orders Only Nicho Sykes [facility] ([place] [id number] [facility] 2024-11-12 00:25:00 2024-11-12 23:59:00 Outpatient R NICHO SYKES [facility] [id number] [facility] 2024-11-12 00:25:00 2024-11-12 23:59:00 Hospital Encounter Nicho Sykes [facility] ([place]) [id number] [facility] 2024-09-23 00:00:00 2024-10-25 18:16:24 Patient Secure Msg Naomy Bravo [facility] [id number] [facility] 2024-10-17 09:30:00 2024-10-17 09:54:25 Outpatient R NAOMY BRAVO [facility] [id number] [facility] 2024-10-17 09:30:00 2024-10-17 09:54:25 Office Visit Naomy Bravo [facility] 1.2.840.114 350.1.13.10 4.2.7.2.686 [id number] [facility] 2024-10-14 00:00:00 2024-10-14 00:00:00 ESCOBAR Wall: [address], [address], [place] [address] , Ph. [facility] - GC_GCBZW_Dawn uribe Lalit* [id number] [facility] 2024-10-12 00:00:00 2024-10-13 13:17:46 Refill Naomy Bravo [facility] PROFESSIO [facility] 1..840.114 350.1.13.10 4.2.7.2.686 [id number] [facility] 2024-09-28 14:34:00 2024-09-28 16:50:00 Emergency X MEGHAN, TIFFANI CHRISTIANSON, TIFFANI [facility] ERT [id number] [facility] 2024-09-15 13:15:00 2024-09-15 13:37:46 Outpatient R LIANG THORPE MITCHELL [facility] [id number] [facility] 2024-09-15 13:15:00 2024-09-15 13:37:46 Office Visit Liang Thorpe [facility] 1..840.114 350.1.13.10 4.2.7.2.686 [id number] [facility] 2024-09-09 00:00:00 2024-09-09 00:00:00 Chary Pulliam MD: [address], [address], [place] [address] , Ph. [facility] - GC_GCBZW_Dawn uribe Lalit* [id number] [facility] 2024-09-01 00:00:00 2024-09-01 09:33:50 Telephone Naomy Bravo [facility] PROFESSIO [facility] 1.2.840.114 350.1.13.10 4.2.7.2.686 [id number] [facility] 2024-08-29 08:37:43 2024-08-29 23:59:00 Outpatient R NAOMY BRAVO [facility] [id number] [facility] 2024-08-29 08:37:43 2024-08-29 23:59:00 Hospital Encounter Naomy Bravo [facility] PROFESSIO [facility] 1.2.840.114 350.1.13.10 4.2.7.2.686 [id number] [facility] 2024-08-18 13:15:00 2024-08-18 14:11:05 Outpatient R LIANG THORPE MITCHELL [facility] [id number] [facility] 2024-08-18 13:15:00 2024-08-18 14:11:05 [facility] 1.2.840.114 350.1.13.10 4.2.7.2.686 [id number] [facility] 2024-08-15 00:00:00 2024-08-15 16:28:30 Refill Naomy Bravo [facility] PROFESSIO NAL [facility]ILD[facility] 1.2.840.114 350.1.13.10 4.2.7.2.686 [id number] [id number] [facility] 2024-08-14 22:09:00 2024-08-15 00:08:00 Emergency X ERNESTINE MILES PAMALA [facility] ERT [id number] [facility] 2024-08-14 22:09:00 2024-08-15 00:08:00 Emergency Ernestine Miles [facility] 1.2.840.114 350.1.13.10 4.2.7.2.686 [id number] [facility] 2024-08-13 15:00:00 2024-08-13 23:59:00 Outpatient R NICHO SYKESNAN NICHO Roxy [facility] [id number] [facility] 2024-08-13 15:00:00 2024-08-13 23:59:00 Hospital Encounter Onel Nicho roxy [facility] 1.2.840.114 350.1.13.10 4.2.7.2.686 [id number] [facility] 2024-08-07 00:00:00 2024-08-07 00:00:00 ESCOBAR Wall: [address] [place] [address] [address], [place] [address] , Ph. [facility]* [id number] [facility] 2024-07-11 12:56:07 2024-07-11 23:59:00 Hospital Encounter Liang Thorpe [facility] 1.2.840.114 350.1.13.10 4.2.7.2.686 [id number] [facility] 2024-07-11 12:55:35 2024-07-11 12:55:35 Hospital Encounter Liang Thorpe [facility] 1.2.840.114 350.1.13.10 4.2.7.2.686 [id number] [facility] 2024-07-11 12:35:38 2024-07-11 12:54:00 Outpatient R LIANG THORPE MITCHELL [facility] [id number] [facility] 2024-07-11 12:35:38 2024-07-11 12:54:00 Hospital Encounter Liang Thorpe [facility] 1.2.840.114 350.1.13.10 4.2.7.2.686 [id number] [facility] 2024-07-11 00:00:00 2024-07-11 00:00:00 OFFICE VISIT ESTAB PT LEVEL 4 STLMLC STLMLC [id number] [facility] 2024-06-30 14:30:00 2024-06-30 14:30:00 Outpatient NAOMY GLEASON [facility] [id number] [facility] 2024-05-26 00:00:00 2024-06-28 18:22:37 Patient Secure Msg Naomy Bravo [facility] 1.2.840.114 350.1.13.10 4.2.7.2.686 [id number] [facility] 2024-06-26 13:40:00 2024-06-26 13:40:00 Outpatient NICHO ROQUE CHOCKALINGA M [facility] [id number] [facility] 2024-06-26 09:00:00 2024-06-26 09:25:31 Outpatient R NICHO SYKES CHOCKALINGA M [facility] [id number] [facility] 2024-06-26 09:00:00 2024-06-26 09:25:31 Office Visit Nicho Sykes [facility] 1.2.840.114 350.1.13.10 4.2.7.2.686 [id number] [facility] 2024-06-24 00:00:00 2024-06-24 00:00:00 ESCOBAR Wall: [address], [place] [address] , Ph. [facility] GC_GCBZW_Dawn uribe Lalit* [id number] [facility] 2024-06-16 00:00:00 2024-06-16 21:30:24 Telephone Naomy Bravo [facility] 1.2.840.114 350.1.13.10 4.2.7.2.686 [id number] 059 [id number] [facility] 2024-06-13 00:00:00 2024-06-15 13:25:41 Patient Secure Msg Lawrence Naomy K.H. [facility] PROFESSIO NAL BUILDING 1.2.840.114 350.1.13.10 4.2.7.2.686 [id number] 059 [id number] [facility] 2024-06-13 10:00:00 2024-06-13 10:09:13 Outpatient R NAOMY BRAVO [facility] [id number] [facility] 2024-06-13 10:00:00 2024-06-13 10:09:13 Office Visit Naomy Bravo K.HAviva [facility] 1.2.840.114 350.1.13.10 4.2.7.2.686 [id number] 059 [id number] [facility] 2024-05-30 00:00:00 2024-05-30 00:00:00 Chary Pulliam MD: [address], [facility] [address], [place] [address] , Ph. [facility]* [id number] [facility] 2024-05-23 00:00:00 2024-05-23 15:33:55 Patient Secure g BravoNaomy [facility] 1.2.840.114 350.1.13.10 4.2.7.2.686 [id number] [facility] 2024-05-21 00:00:00 2024-05-21 00:00:00 Chary Pulliam MD: [address], [place] [address] , Ph. [facility]_GCBZW_La rony Cohn* [id number] [facility] 2024-05-12 11:30:00 2024-05-12 12:42:34 Outpatient R VERITO BURNS [facility] [id number] [facility] 2024-05-12 11:30:00 2024-05-12 12:00:00 [facility] 1.2.840.114 350.1.13.10 4.2.7.2.686 [id number] [id number] [facility] 2024-05-10 10:49:00 2024-05-10 13:26:00 Emergency X MICAELA HOWARD SANDRA [facility] ERT [id number] [facility] 2024-05-10 10:49:00 2024-05-10 13:26:00 Emergency Micaela Howard [facility] 1.2.840.114 350.1.13.10 4.2.7.2.686 [id number] [facility] 2024-05-06 00:00:00 2024-05-08 14:55:54 [facility] 1.2.840.114 350.1.13.10 4.2.7.2.686 [id number] 059 [id number] [facility] 2024-04-18 00:00:00 2024-04-18 00:00:00 OFFICE VISIT ESTAB PT LEVEL 3 STLMLC STLMLC [id number] [facility] 2024-03-17 13:15:00 2024-03-17 13:41:56 Outpatient R LIANG THORPE MITCHELL [facility] [id number] [facility] 2024-03-17 13:15:00 2024-03-17 13:41:56 Office Visit Liang Thorpe [facility] 1.2.840.114 350.1.13.10 4.2.7.2.686 [id number] [facility] 2024-03-11 00:00:00 2024-03-11 00:00:00 (TEL) STLMLC STLMLC [id number] [facility] 2024-03-10 10:23:36 2024-03-10 23:59:00 Outpatient R LIANG THORPE MITCHELL [facility] [id number] [facility] 2024-03-10 10:23:36 2024-03-10 23:59:00 Hospital Encounter Liang Thorpe [facility] 1.2.840.114 350.1.13.10 4.2.7.2.686 [id number] [facility] 2024-03-07 00:00:00 2024-03-07 00:00:00 OFFICE VISIT ESTAB PT LEVEL 4 STLMLC STLC [id number] [facility] 2024-02-11 14:00:00 2024-02-11 14:00:50 Outpatient R LIANG THORPE MITCHELL [facility] [id number] [facility] 2024-02-11 14:00:00 2024-02-11 14:00:50 Office Visit Liang Thorpe [facility] 1.2.840.114 350.1.13.10 4.2.7.2.686 [id number] [facility] 2024 09:35:18 2024 23:59:00 Hospital Encounter Liang Thorpe [facility] 1.2.840.114 350.1.13.10 4.2.7.2.686 [id number] [facility] 2024 09:34:37 2024 09:34:37 Outpatient R LIANG THORPE MITCHELL [facility] [id number] [facility] 2024 09:34:37 2024 09:34:37 Hospital Encounter Liang Thorpe [facility] 1.2.840.114 350.1.13.10 4.2.7.2.686 [id number] [facility] 2023-12-24 00:00:00 2024-01-22 10:43:39 Telephone Liang Thorpe [facility] 1.2.840.114 350.1.13.10 4.2.7.2.686 [id number] [facility] 2024-01-14 13:45:00 2024-01-14 13:50:59 Outpatient R LIANG THORPE MITCHELL [facility] [id number] [facility] 2024-01-14 13:45:00 2024-01-14 13:50:59 Office Visit Liang Thorpe [facility] 1.2.840.114 350.1.13.10 4.2.7.2.686 [id number] [facility] 2024-01-04 11:30:00 2024-01-04 11:43:55 Outpatient R NAOMY BRAVO [facility] [id number] [facility] 2024-01-04 11:30:00 2024-01-04 11:43:55 Office Visit Naomy Bravo [facility] 1.2.840.114 350.1.13.10 4.2.7.2.686 [id number] [facility] 2023-12-31 15:30:00 2023-12-31 15:30:00 Outpatient R LIANG THORPE MITCHELL [facility] [id number] [facility] 2023-12-30 00:00:00 2023-12-31 08:21:33 Refill Naomy Bravo [facility] 1.2.840.114 350.1.13.10 4.2.7.2.686 [id number] [facility] 2023-12-28 07:19:00 2023-12-28 13:41:00 Outpatient R LIANG THORPE MITCHELL [facility] [id number] [facility] 2023-12-28 07:19:00 2023-12-28 13:41:00 Hospital Encounter [facility] 1.2840.114 350.1.13.10 4.2.7.2.686 [id number] [facility] 2023-12-28 09:06:00 2023-12-28 10:56:00 Surgery [facility] 1.2840.114 350.1.13.10 4.2.7.2.686 [id number] [facility] 2023-12-27 13:40:00 2023-12-27 13:53:42 Outpatient R NICHO SYKES CHOCKALINGA M [facility] [id number] [facility] 2023-12-27 13:40:00 2023-12-27 13:53:42 Office Visit Nicho Sykes [facility] 1.2.840.114 350.1.13.10 4.2.7.2.686 [id number] [facility] 2023-12-03 14:00:00 2023-12-03 14:46:51 Outpatient R LIANG THORPE MITCHELL [facility] [id number] [facility] 2023-12-03 14:00:00 2023-12-03 14:46:51 Office Visit Liang Thorpe [facility] 1.2.840.114 350.1.13.10 4.2.7.2.686 [id number] [facility] 2023-10-31 00:00:00 2023-12-01 18:05:52 Patient Secure Msg [facility] 1.2840.114 350.1.13.10 4.2.7.2.686 [id number] [facility] 2023-11-29 10:40:00 2023-11-29 10:40:00 Outpatient R NICHO SYKES CHOCKALINGA M [facility] [id number] [facility] 2023-11-12 00:00:00 2023-11-12 00:00:00 Telephone Namoy Bravo [facility] 1.2.84.114 350.1.13.10 4.2.7.2.686 [id number] [id number] [facility] 2023-11-09 12:28:03 2023-11-09 23:59:00 Outpatient R LIANG THORPE MITCHELL [facility] [id number] [facility] 2023-11-09 12:28:03 2023-11-09 23:59:00 Hospital Encounter Liang Thorpe [facility] 1.20.114 350.1.13.10 4.2.7.2.686 [id number] [facility] 2023-11-09 12:30:00 2023-11-09 12:45:00 Extension Professor Visit Pob, Adc Lab Main Liang Thorpe [facility] 1.2.840.114 350.1.13.10 4.2.7.2.686 [id number] [facility] 2023-11-09 12:27:44 2023-11-09 12:27:44 Hospital Encounter Liang Thorpe [facility] 1.2840.114 350.1.13.10 4.2.7.2.686 [id number] [facility] 2023-11-09 00:00:00 2023-11-09 00:00:00 OFFICE VISIT ESTAB [facility]EVEL 4 [facility] [id number] 2023-11-09 00:00:00 2023-11-09 00:00:00 [facility] [id number] [facility] 2023-11-05 11:00:00 2023-11-05 11:27:45 Outpatient R NAGA LAKHANI [facility] [id number] [facility] 2023-11-05 11:00:00 2023-11-05 11:27:45 Office Visit Naga Lakhani [facility] 1.2.840.114 350.1.13.10 4.2.7.2.686 [id number] [facility] 2023-11-01 11:03:16 2023-11-01 23:59:00 Outpatient R NICHO SYKES [facility] [id number] [facility] 2023-11-01 11:03:16 2023-11-01 23:59:00 Hospital Encounter Nicho Sykes [facility] 1.2.840.114 350.1.13.10 4.2.7.2.686 [id number] [facility] 2023-10-29 14:30:00 2023-10-29 15:14:53 Outpatient R LIANG THORPE MITCHELL [facility] [id number] [facility] 2023-10-29 14:30:00 2023-10-29 15:14:53 Office Visit Liang Thorpe [facility] 1.2.840.114 350.1.13.10 4.2.7.2.686 [id number] [facility] 2023-10-24 00:00:00 2023-10-24 00:00:00 Patient Secure Liang Dimas [facility]ILD[facility] 1.2.840.114 350.1.13.10 4.2.7.2.686 [id number] [facility] 2023-10-22 00:00:00 2023-10-22 00:00:00 Patient Secure Naomy Erwin [facility] NAL BUILD[facility] 1.2.840.114 350.1.13.10 4.2.7.2.686 [id number] [facility] 2023-10-17 00:00:00 2023-10-17 00:00:00 (WEB) STLMLC STLMLC [id number] [facility] 2023-10-05 09:30:30 2023-10-05 23:59:00 Outpatient R NICHO SYKES CHOCKALINGA M [facility] [id number] [facility] 2023-10-05 09:30:30 2023-10-05 23:59:00 Hospital Encounter Nicho Sykes [facility] 1.2.840.114 350.1.13.10 4.2.7.2.686 [id number] [facility] 2023-09-21 06:20:00 2023-09-21 11:47:00 Outpatient R NILAM FLORES [facility] [id number] [facility] 2023-09-21 06:20:00 2023-09-21 11:47:00 Hospital Encounter [facility] 1.2.840.114 350.1.13.10 4.2.7.2.686 [id number] [facility] 2023-09-21 07:55:00 2023-09-21 08:55:00 Surgery Nicho Sykes [facility] 1..114 350.1.13.10 4.2.7.2.686 [id number] [facility] 2023-09-21 00:00:00 2023-09-21 00:00:00 Orders Only Doctor Unassigned, [facility] 1.20.114 350.1.13.10 4.2.7.2.686 [id number] [facility] 2023-09-17 15:30:00 2023-09-17 16:03:02 Outpatient R LIANG THORPE MITCHELL [facility] [id number] [facility] 2023-09-17 15:30:00 2023-09-17 16:03:02 Office Visit Liang Thorpe [facility] 1.84.114 350.1.13.10 4.2.7.2.686 [id number] [facility] 2023-09-10 08:30:00 2023-09-10 08:45:00 Extension Professor Visit Pob, Adc Lab Main Naomy Bravo [facility] 1.840.114 350.1.13.10 4.2.7.2.686 [id number] [facility] 2023-09-10 08:30:00 2023-09-10 08:30:00 Outpatient R NAOMY BRAVO [facility] [id number] [facility] 2023-09-10 00:00:00 2023-09-10 00:00:00 Telephone Nicho Sykes [facility] 1.840.114 350.1.13.10 4.2.7.2.686 [id number] [facility] 2023-08-31 00:00:00 2023-08-31 00:00:00 (WEB) STLMLC STLMLC [id number] [facility] 2023-08-31 00:00:00 2023-08-31 00:00:00 (WEB) STLMLC STLMLC [id number] [facility] 2023-08-30 10:20:00 2023-08-30 10:53:46 Outpatient R NICHO SYKES [facility]A M [facility] [id number] [facility] 2023-08-30 10:20:00 2023-08-30 10:53:46 Office Visit Nicho Sykes [facility] 1.2.840.114 350.1.13.10 4.2.7.2.686 [id number] [facility] 2023-08-23 00:00:00 2023-08-23 00:00:00 Telephone Nicho Sykes [facility] 1.2.840.114 350.1.13.10 4.2.7.2.686 [id number] [facility] 2023-08-15 00:00:00 2023-08-15 00:00:00 (WEB) STLMLC STLC [id number] [facility] 2023-08-13 14:45:00 2023-08-13 14:45:00 Outpatient R LIANG THORPE MITCHELL [facility] [id number] [facility] 2023-08-10 00:00:00 2023-08-10 00:00:00 OFFICE VISIT ESTAB PT LEVEL 4 STLMLC STLC [id number] [facility] 2023-08-01 00:00:00 2023-08-01 00:00:00 Naomy Good [facility] 1.2.840.114 350.1.13.10 4.2.7.2.686 [id number] [facility] 2023-08-01 00:00:00 2023-08-01 00:00:00 [facility]ill [facility] 1.2.840.114 350.1.13.10 4.2.7.2.686 [id number] [facility] 2023-07-13 00:00:00 2023-07-13 00:00:00 Refill Naomy Bravo [facility] 1.2.840.114 350.1.13.10 4.2.7.2.686 [id number] [id number] [facility] 2023-07-10 00:00:00 2023-07-10 00:00:00 Refill Naomy Bravo [facility] 1.2.840.114 350.1.13.10 4.2.7.2.686 [id number] [id number] [facility] 2023-06-29 11:00:00 2023-06-29 11:15:00 Extension Professor Visit 2, Adc Lab Naomy Bravo [facility] 1.2.840.114 350.1.13.10 4.2.7.2.686 [id number] [facility] 2023-06-29 10:30:00 2023-06-29 11:14:12 Outpatient R NAOMY BRAVO [facility] [id number] [facility] 2023-06-29 10:30:00 2023-06-29 11:14:12 Office Visit Naomy Bravo [facility] 1.2.840.114 350.1.13.10 4.2.7.2.686 [id number] [facility] 2023-06-29 00:00:00 2023-06-29 00:00:00 Patient Secure Msg Doctor Unassigned, [facility] 1.2.840.114 350.1.13.10 4.2.7.2.686 [id number] [id number] [facility] 2023-06-19 00:00:00 2023-06-19 00:00:00 Refill Naga Lakhani [facility] 1.2.840.114 350.1.13.10 4.2.7.2.686 [id number] [id number] [facility] 2023-06-11 00:00:00 2023-06-11 00:00:00 (TEL) [facility] [id number] 2023-06-01 14:36:38 2023-06-01 23:59:00 Hospital Encounter Naga Lakhani [facility] 1.2.840.114 350.1.13.10 4.2.7.2.686 [id number] [facility] 2023-06-01 14:36:28 2023-06-01 23:59:00 Outpatient R NICHO SYKES [facility]A [facility] [id number] [facility] 2023-06-01 14:36:28 2023-06-01 23:59:00 Hospital Encounter Nicho Sykes [facility] 1.2.840.114 350.1.13.10 4.2.7.2.686 [id number] [facility] 2023-06-01 00:00:00 2023-06-01 00:00:00 [facility]TEL) [facility] [id number] [facility] 2023-05-22 00:00:00 2023-05-22 00:00:00 RefNaga Salazar [facility] 1..840.114 350.1.13.10 4.2.7.2.686 [id number] [facility] 2023-05-21 00:00:00 2023-05-21 00:00:00 (TEL) [facility]LMLC ST[facility]C [id number] [facility] 2023-05-21 00:00:00 2023-05-21 00:00:00 Transition of Care Marly Hanley [facility]Y [facility] 1..840.114 350.1.13.10 4.2.7.2.686 [id number] [facility] 2023-05-18 10:54:00 2023-05-19 15:10:00 Outpatient X NILAM FLORES [facility] [id number] [facility] 2023-05-18 10:54:00 2023-05-19 15:10:00 Emergency Nilam Flores Charles [facility] 1.840.114 350.1.13.10 4.2.7.2.686 [id number] [facility] 2023-05-17 08:40:00 2023-05-17 08:55:15 Outpatient R NICHO SYKES [facility]A [facility] [id number] [facility] 2023-05-17 08:40:00 2023-05-17 08:55:15 Office Visit Nicho Sykes [facility] 1..840.114 350.1.13.10 4.2.7.2.686 [id number] [facility] 2023-05-09 00:00:00 2023-05-09 00:00:00 Telephone Nicho Sykes [facility] 1.840.114 350.1.13.10 4.2.7.2.686 [id number] [facility] 2023-05-07 08:30:00 2023-05-07 09:00:00 Office Visit Naga Lakhani [facility] 1..840.114 350.1.13.10 4.2.7.2.686 [id number] [facility] 2023-05-07 08:30:00 2023-05-07 08:30:00 Outpatient R NAGA LAKHANI [facility] [id number] [facility] 2023-05-04 00:00:00 2023-05-04 00:00:00 OFFICE VISIT ESTAB PT LEVEL 4 STLMLC STLMLC [id number] [facility] 2023-04-23 00:00:00 2023-04-23 00:00:00 Patient Secure Msg Naomy BravoHAviva [facility] 1..840.114 350.1.13.10 4.2.7.2.686 [id number] [facility] 2023-04-20 10:00:00 2023-04-20 10:43:38 Outpatient R NAOMY BRAVO [facility] [id number] [facility] 2023-04-20 10:00:00 2023-04-20 10:43:38 Office Visit Naomy Bravo [facility] 1..840.114 350.1.13.10 4.2.7.2.686 [id number] [facility] 2023-04-13 00:00:00 2023-04-13 00:00:00 Patient Secure Msg Doctor Unassigned, [facility] 1.2840.114 350.1.13.10 4.2.7.2.686 [id number] [facility] 2023-04-11 00:00:00 2023-04-11 00:00:00 Transition of Care Marly Hanley 1.2.840.114 350.1.13.10 4.2.7.2.686 [id number] [facility] 2023-04-10 05:27:00 2023-04-10 17:47:00 Outpatient U [facility], [facility] [id number] [facility] 2023-04-10 05:27:00 2023-04-10 17:47:00 Hospital Encounter [facility] 1.2840.114 350.1.13.10 4.2.7.2.686 [id number] [facility] 2023-04-09 00:00:00 2023-04-09 00:00:00 Patient Secure [facility] 1.2840.114 350.1.13.10 4.2.7.2.686 [id number] [facility] 2023-04-06 06:31:00 2023-04-07 15:40:00 Outpatient YVONNE CASTRO [facility] [id number] [facility] 2023-04-06 06:31:00 2023-04-07 15:40:00 Hospital Encounter Naga Lakhani Aiham Shalaby, Mostafa Helmy Ahmed [facility] 1.2840.114 350.1.13.10 4.2.7.2.686 [id number] [facility] 2023-04-06 09:08:00 2023-04-06 11:08:00 Surgery KumNaga pardo [facility] 1.2.840.114 350.1.13.10 4.2.7.2.686 [id number] [facility] 2023-03-30 10:15:00 2023-03-30 10:30:00 Extension Professor Visit 1, Adc Lab Griffin Fernandes [facility] 1.2.840.114 350.1.13.10 4.2.7.2.686 [id number] [facility] 2023-03-30 10:15:00 2023-03-30 10:15:00 Outpatient Elis FERNANDES [facility] [id number] [facility] 2023-03-28 00:00:00 2023-03-28 00:00:00 Patient Secure MsNaomy Lawton [facility] 1.2.840.114 350.1.13.10 4.2.7.2.686 [id number] [facility] 2023-03-14 00:00:00 2023-03-14 00:00:00 Telephone Unassigned, Cath/Ep [facility] 1.2.840.114 350.1.13.10 4.2.7.2.686 [id number] [facility] 2023-03-07 10:30:00 2023-03-07 11:29:01 Outpatient NAOMY GLEASON [facility] [id number] [facility] 2023-03-07 10:30:00 2023-03-07 11:29:01 Office Visit [facility] 1.2.840.114 350.1.13.10 4.2.7.2.686 [id number] [facility] 2023-03-05 22:57:00 2023-03-06 02:35:00 Emergency X ROMEO MENDIETA [facility] ERT [id number] [facility] 2023-03-05 22:57:00 2023-03-06 02:35:00 Emergency Romeo Mendieta [facility] 1.2.840.114 350.1.13.10 4.2.7.2.686 [id number] [facility] 2023-03-06 00:00:00 2023-03-06 00:00:00 [facility] 1.2.840.114 350.1.13.10 4.2.7.2.686 [id number] [facility] 2023-02-28 00:00:00 2023-02-28 00:00:00 (TEL) [facility] [id number] [facility] 2023-02-12 12:32:00 2023-02-12 14:30:00 Emergency X MARY MEJIA [facility] ERT [id number] [facility] 2023-02-12 12:32:00 2023-02-12 14:30:00 Emergency Mary Mejia [facility] 1.2.840.114 350.1.13.10 4.2.7.2.686 [id number] [facility] 2023-02-12 10:00:00 2023-02-12 10:00:00 Outpatient NAOMY GLEASON [facility] [id number] [facility] 2023-02-02 00:00:00 2023-02-02 00:00:00 OFFICE VISIT ESTAB PT LEVEL 4 [facility] [id number] [facility] 2023-01-02 13:03:41 2023-01-02 23:59:00 Outpatient BRANDON COHEN [facility] [id number] [facility] 2023-01-02 13:03:41 2023-01-02 23:59:00 Hospital Encounter [facility] 1.2.840.114 350.1.13.10 4.2.7.2.686 [id number] [facility] 2022-12-20 00:00:00 2022-12-20 00:00:00 Patient Secure Naomy Erwin [facility] 1.2.840.114 350.1.13.10 4.2.7.2.686 [id number] [facility] 2022-12-19 12:00:00 2022-12-19 12:45:00 Surgery [facility] 1.2.840.114 350.1.13.10 4.2.7.2.686 [id number] [facility] 2022-12-19 06:19:00 2022-12-19 09:46:00 Outpatient R [facility] [id number] [facility] 2022-12-19 06:19:00 2022-12-19 09:46:00 Hospital Encounter [facility] 1.2.840.114 350.1.13.10 4.2.7.2.686 [id number] [facility] 2022-12-19 00:00:00 2022-12-19 00:00:00 Orders Only Doctor Unassigned, [facility] 1.2.840.114 350.1.13.10 4.2.7.2.686 [id number] [facility] 2022-12-15 10:00:00 2022-12-15 10:15:00 Extension Professor Visit Pob, Adc Lab Main Naomy Bravo [facility] 1.2840.114 350.1.13.10 4.2.7.2.686 [id number] [facility] 2022-12-15 10:00:00 2022-12-15 10:00:00 Outpatient NAOMY GLEASON [facility] [id number] [facility] 2022-12-05 00:00:00 2022-12-05 00:00:00 Telephone Naomy Bravo [facility] 1.2.840.114 350.1.13.10 4.2.7.2.686 [id number] [facility] 2022-11-16 09:00:00 2022-11-16 09:20:00 Office Visit Hugo Brandon [facility] 1.2.840.114 350.1.13.10 4.2.7.2.686 [id number] [facility] 2022-11-16 09:00:00 2022-11-16 09:00:00 Outpatient Elis ARIAS [facility] [id number] [facility] 2022-11-16 00:00:00 2022-11-16 00:00:00 Telephone Hugo Brandon [facility] 1.2.840.114 350.1.13.10 4.2.7.2.686 [id number] [facility] 2022-11-03 00:00:00 2022-11-03 00:00:00 OFFICE VISIT ESTAB PT LEVEL 4 STLMLC [facility] [id number] [facility] 2022-11-03 00:00:00 2022-11-03 00:00:00 [facility] Medicare Wellness STLC [facility] [id number] [facility] 2022-10-20 10:00:00 2022-10-20 10:00:00 Outpatient NAOMY GLEASON [facility] [id number] [facility] 2022-10-13 10:00:00 2022-10-13 10:36:05 Outpatient R NAOMY BRAVO [facility] [id number] [facility] 2022-10-13 10:00:00 2022-10-13 10:36:05 [facility] 1.2.840.114 350.1.13.10 4.2.7.2.686 [id number] [facility] 2022-10-02 00:00:00 2022-10-02 00:00:00 Telephone Naomy Bravo [facility] 1.2.840.114 350.1.13.10 4.2.7.2.686 [id number] [id number] [facility] 2022-09-12 00:00:00 2022-09-12 00:00:00 Orders Only Doctor Unassigned, [facility] 1.2.840.114 350.1.13.10 4.2.7.2.686 [id number] [facility] 2022-09-08 09:30:00 2022-09-08 09:30:00 Outpatient R NAOMY BRAVO [facility] [id number] [facility] 2022-09-08 09:30:00 2022-09-08 09:30:00 Outpatient R NAOMY BRAVO [facility] [id number] [facility] 2022-09-08 00:00:00 2022-09-08 00:00:00 Patient Secure Msg Naomy Bravo [facility] 1.2.840.114 350.1.13.10 4.2.7.2.686 [id number] [id number] [facility] 2022-08-24 08:30:00 2022-08-24 23:59:00 Outpatient R NAOMY BRAVO [facility] [id number] [facility] 2022-08-24 15:30:00 2022-08-24 16:20:54 Office Visit Naomy Bravo [facility] 1.2.840.114 350.1.13.10 4.2.7.2.686 [id number] [facility] 2022-08-21 00:00:00 2022-08-21 00:00:00 Patient Secure Msg Naomy Bravo [facility] 1.2.840.114 350.1.13.10 4.2.7.2.686 [id number] [facility] 2022-08-19 18:46:00 2022-08-19 22:45:00 Emergency X ROMEO MENDIETA [facility] ERT [id number] [facility] 2022-08-19 18:46:00 2022-08-19 22:45:00 Emergency Romeo Mendieta S [facility] 1.2.840.114 350.1.13.10 4.2.7.2.686 [id number] [facility] 2022-08-11 00:00:00 2022-08-11 00:00:00 OFFICE VISIT ESTAB PT LEVEL 4 STLMLC STLC [id number] [facility] 2022-07-20 00:00:00 2022-07-20 00:00:00 Patient Secure Msg Doctor Unassigned, [facility] 1.2.840.114 350.1.13.10 4.2.7.2.686 [id number] [facility] 2022-07-11 07:09:00 2022-07-12 17:04:00 Outpatient PARDEEP ALVAREZ [facility] [id number] [facility] 2022-07-11 07:09:00 2022-07-12 17:04:00 [facility], Devon Acosta, Pardeep [facility] 1.2.840.114 350.1.13.10 4.2.7.2.686 [id number] [facility] 2022-07-11 05:05:00 2022-07-11 07:05:00 Surgery [facility] Naga [facility] 1.2.840.114 350.1.13.10 4.2.7.2.686 [id number] [facility] 2022-07-10 00:00:00 2022-07-10 00:00:00 Telephone Naomy Bravo [facility] 1.2.840.114 350.1.13.10 4.2.7.2.686 [id number] [facility] 2022-07-07 11:00:00 2022-07-07 11:15:00 Extension Professor Visit Pob, Adc Lab Griffin [facility] 1.2.840.114 350.1.13.10 4.2.7.2.686 [id number] [facility] 2022-07-07 11:00:00 2022-07-07 11:00:00 Outpatient R GRIFFIN FERNANDES [facility] [id number] [facility] 2022-06-26 00:00:00 2022-06-26 00:00:00 Patient Secure Msg Naomy Bravo [facility] 1.2.840.114 350.1.13.10 4.2.7.2.686 [id number] [facility] 2022-06-23 00:00:00 2022-06-23 00:00:00 Telephone Naga Lakhani [facility] 1.2.840.114 350.1.13.10 4.2.7.2.686 [id number] [facility] 2022-06-14 00:00:00 2022-06-14 00:00:00 (TEL) STLMLC STLMLC [id number] [facility] 2022-06-14 00:00:00 2022-06-14 00:00:00 Patient Secure Msg Bravo, Naomy K.HAviva [facility] 1.2.840.114 350.1.13.10 4.2.7.2.686 [id number] [id number] [facility] 2022-06-14 00:00:00 2022-06-14 00:00:00 Patient Secure Msg [facility] 1.2.840.114 350.1.13.10 4.2.7.2.686 [id number] [facility] 2022-06-13 00:00:00 2022-06-13 00:00:00 Telephone Naomy Bravo LianneAvivaHAviva [facility] 1.2.840.114 350.1.13.10 4.2.7.2.686 [id number] 059 [id number] [facility] 2022-04-26 00:00:00 2022-04-26 00:00:00 Patient Secure Msg BravoNaomy K.HAviva [facility] 1.2.840.114 350.1.13.10 4.2.7.2.686 [id number] [id number] [facility] 2022-04-19 00:00:00 2022-04-19 00:00:00 Telephone Naomy BravoHAviva [facility] 1.2.840.114 350.1.13.10 4.2.7.2.686 [id number] [id number] [facility] 2022-04-18 06:18:00 2022-04-18 12:18:00 Outpatient R NAOMY BRAVO [facility] [id number] [facility] 2022-04-18 06:18:00 2022-04-18 12:18:00 Hospital Encounter Naomy Bravo [facility] 1.2.840.114 350.1.13.10 4.2.7.2.686 [id number] [facility] 2022-04-18 07:30:00 2022-04-18 08:30:00 Surgery Naga Lakhani [facility] 1.2.840.114 350.1.13.10 4.2.7.2.686 [id number] [facility] 2022-04-18 00:00:00 2022-04-18 00:00:00 Telephone Naomy Bravo [facility] 1.2.840.114 350.1.13.10 4.2.7.2.686 [id number] [facility] 2022-04-18 00:00:00 2022-04-18 00:00:00 Orders Only Doctor Unassigned, [facility] 1.2.840.114 350.1.13.10 4.2.7.2.686 [id number] [facility] 2022-04-14 10:45:00 2022-04-14 11:00:00 Extension Professor Visit 1, Adc Lab Naomy Bravo [facility] 1.2.840.114 350.1.13.10 4.2.7.2.686 [id number] [facility] 2022-04-14 10:30:00 2022-04-14 10:45:00 Laboratory Only Only, Adc Test Janet Bravoil MaddiAviva [facility] 1.2.840.114 350.1.13.10 4.2.7.2.686 [id number] [facility] 2022-04-14 10:30:00 2022-04-14 10:30:00 Outpatient R NAOMY BRAVO [facility] [id number] [facility] 2022-04-03 00:00:00 2022-04-03 00:00:00 Telephone Unassigned, Cath/Ep [facility] 1.2.840.114 350.1.13.10 4.2.7.2.686 [id number] [facility] 2022-03-31 00:00:00 2022-03-31 00:00:00 Telephone Naomy [facility]ravo [facility] 1.2.840.114 350.1.13.10 4.2.7.2.686 [id number] [facility] 2022-03-30 10:50:03 2022-03-30 23:59:00 Hospital Encounter [facility] 1.2.840.114 350.1.13.10 4.2.7.2.686 [id number] [facility] 2022-03-30 10:49:00 2022-03-30 10:49:00 Hospital Encounter [facility] 1.2.840.114 350.1.13.10 4.2.7.2.686 [id number] [facility] 2022-03-30 10:47:59 2022-03-30 10:48:00 Hospital Encounter [facility] 1.2.840.114 350.1.13.10 4.2.7.2.686 [id number] [facility] 2022-03-30 10:46:03 2022-03-30 10:46:03 [facility] [id number] [facility] 2022-03-30 10:46:03 2022-03-30 10:46:03 Hospital Encounter Jeremias [facility] 1.2.840.114 350.1.13.10 4.2.7.2.686 [id number] [facility] 2022-03-30 00:00:00 2022-03-30 00:00:00 Orders Only Doctor Unassigned, [facility] 1.2.840.114 350.1.13.10 4.2.7.2.686 [id number] [facility] 2022-03-29 08:36:31 2022-03-29 23:59:00 Hospital Encounter Jeremias, [facility] 1.2.840.114 350.1.13.10 4.2.7.2.686 [id number] [facility] 2022-03-23 13:00:00 2022-03-23 13:29:17 Outpatient R MACRINA PAIGE [facility] [id number] [facility] 2022-03-09 00:00:00 2022-03-09 00:00:00 OFFICE VISIT ESTAB PT LEVEL 4 STLMLC STLC [id number] [facility] 2022-03-07 11:00:00 2022-03-07 11:00:00 [facility] [id number] [facility] 2022-03-07 00:00:00 2022-03-07 00:00:00 [facility] [id number] [facility] 2022-03-06 08:30:00 2022-03-06 08:53:33 Outpatient R NAOMY BRAVO [facility] [id number] [facility] 2022-03-06 08:30:00 2022-03-06 08:53:33 [facility] [id number] [facility] 2022-03-06 08:30:00 2022-03-06 08:53:33 Office Visit Naomy Bravo [facility] 1.2.840.114 350.1.13.10 4.2.7.2.686 [id number] [facility] 2022-03-06 08:30:00 2022-03-06 08:30:00 Outpatient R NAOMY BRAVO [facility] [id number] [facility] 2022-02-28 00:00:00 2022-02-28 00:00:00 [facility] [id number] [facility] 2022-02-28 00:00:00 2022-02-28 00:00:00 Outpatient R JEREMIAS [facility] [id number] [facility] 2022-02-27 00:00:00 2022-02-27 00:00:00 Telephone Naomy BravoAviva [facility] 1.2.840.114 350.1.13.10 4.2.7.2.686 [id number] [facility] 2022-02-14 00:00:00 2022-02-14 00:00:00 (TEL) STLC STLMLC [id number] [facility] 2022-01-26 00:00:00 2022-01-26 00:00:00 (TEL) STLC STLMLC [id number] [facility] 2022-01-21 00:00:00 2022-01-21 00:00:00 Patient Secure [facility] 1.2.840.114 350.1.13.10 4.2.7.2.686 [id number] [facility] 2022-01-20 08:00:00 2022-01-20 08:01:00 Outpatient R JEREMIAS, [facility] [id number] [facility] 2022-01-20 08:00:00 2022-01-20 08:00:00 Outpatient R JEREMIAS, [facility] [id number] [facility] 2021-12-27 08:40:00 2021-12-27 09:34:30 Outpatient R JEREMIAS, [facility] [id number] [facility] 2021-12-27 08:40:00 2021-12-27 09:34:30 Office Visit Jeremias, [facility] BUILDING 1.2.840.114 350.1.13.10 4.2.7.2.686 [id number] [facility] 2021-12-27 00:00:00 2021-12-27 00:00:00 Orders Only Doctor Unassigned, [facility] 1.2.840.114 350.1.13.10 4.2.7.2.686 [id number] [facility] 2021-12-26 00:00:00 2021-12-26 00:00:00 (TEL) STLC STLMLC [id number] [facility] 2021-12-26 00:00:00 2021-12-26 00:00:00 Telephone Naomy Bravo [facility] 1.2.840.114 350.1.13.10 4.2.7.2.686 [id number] [facility] 2021-11-09 00:00:00 2021-11-09 00:00:00 (TEL) STLMLC STLMLC [id number] [facility] 2021-11-09 00:00:00 2021-11-09 00:00:00 OFFICE VISIT ESTAB PT LEVEL 4 [facility] [id number] [facility] 2021-11-09 00:00:00 2021-11-09 00:00:00 [facility] [id number] [facility] 2021-09-28 10:00:00 2021-09-28 10:00:00 Outpatient NAOMY GLEASON [facility] [id number] [facility] 2021-09-13 00:00:00 2021-09-13 00:00:00 Telephone Naomy Bravo [facility] 1..840.114 350.1.13.10 4.2.7.2.686 [id number] [facility] 2021-09-13 00:00:00 2021-09-13 00:00:00 Orders Only Doctor Unassigned, [facility] 1.840.114 350.1.13.10 4.2.7.2.686 [id number] [facility] 2021-08-01 00:00:00 2021-08-01 00:00:00 (TEL) [facility] [id number] [facility] 2021-07-27 00:00:00 2021-07-27 00:00:00 OFFICE VISIT ESTAB PT LEVEL 4 [facility] [id number] [facility] 2021-07-20 10:00:00 2021-07-20 10:00:00 Outpatient NAOMY GLEASON [facility] [id number] [facility] 2021-07-05 00:00:00 2021-07-05 00:00:00 Transition of Care Marly Hanley 1..840.114 350.1.13.10 4.2.7.2.686 [id number] [facility] 2021-07-03 17:13:00 2021-07-04 15:09:00 Outpatient X WALTER GALLARDO [facility] LALA [id number] [facility] 2021-07-03 17:13:00 2021-07-04 15:09:00 Emergency Salvador NicolasRomeo Kidd Walter Diaz [facility] 1.2.840.114 350.1.13.10 4.2.7.2.686 [id number] [facility] 2021-03-31 09:45:34 2021-03-31 10:32:15 Office Visit Naomy Bravo [facility] Professio [facility] 1.2.840.114 350.1.13.10 4.2.7.2.686 [id number] [facility] 2021-03-31 10:00:00 2021-03-31 10:00:00 Outpatient R NAOMY BRAVO [facility] [id number] [facility] 2021-03-24 00:00:00 2021-03-24 00:00:00 OFFICE VISIT ESTAB PT LEVEL 4 STLMLC STLMLC [id number] [facility] 2021-01-03 10:00:00 2021-01-03 10:00:00 Outpatient R [facility] [id number] [facility] 2020-12-28 20:21:00 2020-12-28 23:40:00 Emergency [facility]ely [facility] 1.2.840.114 350.1.13.10 4.2.7.2.686 [id number] [facility] 2020-12-27 00:00:00 2020-12-27 00:00:00 Outpatient STLMLC STLMLC [id number] [facility] 2020-12-16 00:00:00 2020-12-16 00:00:00 Outpatient STLMLC STLMLC [id number] [facility] 2020-12-13 10:20:00 2020-12-13 10:26:15 Outpatient RAE LARSON [facility] [id number] [facility] 2020-12-09 00:00:00 2020-12-09 00:00:00 Outpatient STLMLC STLMLC [id number] [facility] 2020-12-03 00:00:00 2020-12-03 00:00:00 Outpatient STLMLC STLMLC [id number] [facility] 2020-11-24 00:00:00 2020-11-24 00:00:00 Outpatient STLMLC STLMLC [id number] [facility] 2020-11-24 00:00:00 2020-11-24 00:00:00 Outpatient STLMLC STLMLC [id number] [facility] 2020-11-20 11:45:00 2020-11-20 12:11:11 Outpatient RAE LARSON [facility] [id number] [facility] 2020-09-23 11:12:49 2020-09-23 11:58:33 Office Visit Naomy Bravo [facility] .2.840.114 350.1.13.10 4.2.7.2.686 [id number] [facility] 2020-09-23 11:30:00 2020-09-23 11:30:00 Outpatient NAOMY GLEASON [facility] [id number] [facility] 2020-08-03 11:25:00 2020-08-03 14:25:00 Emergency Alexsander Falcon [facility] .840.114 350.1.13.10 4.2.7.2.686 [id number] [facility] 2020-08-03 11:25:00 2020-08-03 14:25:00 Emergency X ALEXSANDER FALCON [facility] ERT [id number] [facility] 2020-07-06 09:14:07 2020-07-06 10:40:28 [facility] 1.2.840.114 350.1.13.10 4.2.7.2.686 [id number] [facility] 2020-07-06 09:15:00 2020-07-06 09:15:00 Outpatient R EMILIA ORTIZ [facility] [id number] [facility] 2020-06-29 00:00:00 2020-06-29 00:00:00 Outpatient STLMLC STLMLC [id number] [facility] 2020-03-25 11:26:28 2020-05-23 00:15:09 Office Visit Naomy Bravo [facility] 1.2.840.114 350.1.13.10 4.2.7.2.686 [id number] [facility] 2020-05-21 09:30:00 2020-05-21 09:30:00 Outpatient R [facility] [id number] [facility] 2020-05-21 00:00:00 2020-05-21 00:00:00 Orders Only Doctor Unassigned, [facility] 1.2.840.114 350.1.13.10 4.2.7.2.686 [id number] [facility] 2020-05-18 11:20:00 2020-05-18 11:20:00 Outpatient R YEYO GODFREY HOWARD [facility] [id number] [facility] 2020-05-14 10:00:00 2020-05-14 10:00:00 Outpatient R ARGELIA MCDOWELL [facility] [id number] [facility] 2020-05-11 00:00:00 2020-05-11 00:00:00 Telephone Naomy Bravo [facility] Building 1..840.114 350.1.13.10 4.2.7.2.686 [id number] [facility] 2020-03-30 00:00:00 2020-03-30 00:00:00 Orders Only Doctor Unassigned, [facility] 1.840.114 350.1.13.10 4.2.7.2.686 [id number] [facility] 2020-03-25 11:30:00 2020-03-25 11:30:00 Outpatient NAOMY GLEASON [facility] [id number] [facility] 2020-03-03 10:45:00 2020-03-03 10:45:00 Outpatient [facility] [id number] [facility] 2020-01-22 09:30:00 2020-01-22 09:30:00 Outpatient NAOMY GLEASON [facility] [id number] [facility] 2019-12-04 00:00:00 2019-12-04 00:00:00 Telephone Naomy [facility]ravo[facility] 1..840.114 350.1.13.10 4.2.7.2.686 [id number] [facility] 2019-12-03 11:15:00 2019-12-03 11:15:00 Outpatient [facility] [id number] [facility] 2019-06-23 07:57:28 2019-12-02 19:39:27 Extension Professor Visit Tech, Adc Cardio Fac 2, Adc Cardio Fac Room Shayne Mcdowellmin [facility] Building 1..840.114 350.1.13.10 4.2.7.2.686 [id number] [facility] [facility] 2019-12-02 15:41:56 2019-12-02 16:28:44 Extension Professor Visit Pc, [facility] 1.2.840.114 350.1.13.10 4.2.7.2.686 [id number] 059 [id number] [facility] 2019-12-02 16:00:00 2019-12-02 16:00:00 Outpatient R [facility] [id number] [facility] 2019-09-11 07:52:01 2019-10-17 00:36:19 [facility] 1.2.840.114 350.1.13.10 4.2.7.2.686 [id number] 059 [id number] [facility] 2019-10-17 00:00:00 2019-10-17 00:00:00 Telephone Naomy Bravo [facility] 1.2.840.114 350.1.13.10 4.2.7.2.686 [id number] 059 [id number] [facility] 2019-09-10 09:40:00 2019-09-11 07:52:23 Outpatient [facility] [id number] [facility] 2019-09-10 00:00:00 2019-09-10 00:00:00 Orders Only Doctor Unassigned, [facility] 1.284.114 350.1.13.10 4.2.7.2.686 [id number] 009 [id number] [facility] 2019-09-05 00:00:00 2019-09-05 00:00:00 Telephone Naomy Bravo [facility] 1.2.840.114 350.1.13.10 4.2.7.2.686 [id number] 059 [id number] [facility] 2019-09-04 09:00:00 2019-09-04 09:00:00 [facility] [id number] [facility] 2019-08-28 09:35:40 2019-08-29 15:54:44 Office Visit Naomy Bravo [facility] 1.2.840.114 350.1.13.10 4.2.7.2.686 [id number] 059 [id number] [facility] 2019-08-29 00:00:00 2019-08-29 00:00:00 Telephone Naomy Bravo [facility] 1.2.840.114 350.1.13.10 4.2.7.2.686 [id number] 059 [id number] [facility] 2019-08-28 00:00:00 2019-08-28 00:00:00 Orders Only Doctor Unassigned, [facility] 1.2.840.114 350.1.13.10 4.2.7.2.686 [id number] 009 [id number] [facility] 2019-05-29 14:38:00 2019-05-29 14:38:00 Outpatient [facility] Medicine [id number] [facility] 2019-05-29 11:30:00 2019-05-29 11:30:00 [facility] [address] [facility] [id number] [facility] 2019-02-19 08:15:00 2019-02-19 08:15:00 [facility] [address] [facility] [id number] [facility] 2019-02-03 16:15:00 2019-02-03 16:15:00 [facility] [address] [facility] [id number] [facility] 2019-01-09 08:15:00 2019-01-09 08:15:00 [facility] [address] [facility] [id number] [facility] 2018-11-05 10:00:00 2018-11-05 10:00:00 [facility] [address] [facility] [id number] [facility] 2018-08-26 08:43:00 2018-08-26 08:43:00 [facility] [address] [facility] [id number] [facility] 2018-08-08 10:15:00 2018-08-08 10:15:00 [facility] [address] [facility] [id number] [facility] 2018-05-08 10:00:00 2018-05-08 10:00:00 [facility] [address] [facility] [address] [facility] [id number] [facility] 2018-02-14 13:45:00 2018-02-14 13:45:00 [facility] [id number] [facility] 2018-02-14 13:45:00 2018-02-14 13:45:00 [facility] [id number] [facility] 2018-02-12 16:00:00 2018-02-12 16:00:00 [facility] [id number] [facility] 2018-02-12 15:28:00 2018-02-12 15:28:00 [facility] [id number] [facility] 2018-02-06 09:30:00 2018-02-06 09:30:00 [facility] [id number] [facility] 2018-01-28 14:50:00 2018-01-28 14:50:00 [facility] [id number] [facility] 2018-01-15 09:45:00 2018-01-15 09:45:00 Outpatient [facility] Special[facility] Clinic [facility] [id number] [facility] 2018-01-02 09:30:00 2018-01-02 09:30:00 [facility] [id number] [facility] 2017-12-31 10:00:00 2017-12-31 10:00:00 Outpatient [facility] [id number] [facility] 2017-10-29 10:00:00 2017-10-29 10:00:00 Outpatient [facility] [id number] [facility] Results Test Description Test Time Test Comments Results Result Co mments Source [facility] CHEST 1 [id number] 05:19:21Ordering physician: ERNESTINE MILES Indication: Chest pain Comparison: Chest dated 05/10/2024 Technical quality: Adequate Findings: Single AP view of the chest. The cardiopericardial silhouette iswithin normal limits. The patient is status post median sternotomy. Thereis a 2-lead pacemaker. The lungs are clear bilaterally. The visualized bonythorax is intact.[facility] [id number] 05:06:57* Test Item Value Reference Range Interpretation Comme nts TROPONIN I (test code = 7899158838) 0.002 ng/mL <=0.034 ALDO (test code = ALDO) [...] of biotin. Lab Interpretation (test code = 16833-0) [facility] (75290)2024-08-15 04:56:34* Test Item Value Reference Range Interpretation Comme nts NA (test code = 6501226616) 140 mmol/L 135-145 K (test code = 2475380347) 4.3 mmol/L 3.5-5.0 CL (test code = 1824679472) 104 mmol/L 98-108 CO2 TOTAL (test code = 8310686936) 27 mmol/L 23-31 AGAP (test code = 0721735496) 9 2-16 BUN (test code = 6215933354) 30 mg/dL 7-23 H GLUCOSE (test code = 2522222252) 384 mg/dL 70-110 H CREATININE (test code = 2160-0) 1.39 mg/dL 0.50-1.04 H TOTAL BILI (test code = 3642137326) 1.0 mg/dL 0.1-1.1 CALCIUM (test code = 8354534419) 9.4 mg/dL 8.6-10.6 T PROTEIN (test code = 4036566908) 7.4 g/dL 6.3-8.2 ALBUMIN (test code = 9144656701) 4.7 g/dL 3.5-5.0 ALK PHOS (test code = 5896254623) 142 U/L 34-122 H ALTv (test code = 1742-6) 15 U/L 5-35 AST(SGOT) (test code = 6161744377) 22 U/L 13-40 eGFR (test code = 80891-7) 38.2 mL/min/1.73m2 CKD-EPI eGFR (2020). Assuming creatinine has been stable day-to-day for at least three months, the eGFR indicates Category G3b (30 - 44 mL/min/1.73 m2) Lab Interpretation (test code = 09490-6) [facility]normal [facility] 04:56:13* Test Item Value Reference Range Interpretation Comme nts LIPASE (test code = 2112676432) 335 U/L 0-220 H Lab Interpretation (test cod e = 11876-1) Abnormal [facility] [id number] 04:40:53* Test Item Value Reference Range Interpretation Comme nts WBC (test code = 6690-2) 6.39 4.30-11.10 RBC (test code = 789-8) 4.47 3.93-5.25 HGB (test code = 718-7) 13.5 g/dL 11.6-15.0 HCT (test code = 4544-3) 43.1 % 35.7-45.2 MCV (test code = 787-2) 96.4 fL 80.6-95.5 H MCH (test code = 785-6) 30.2 pg 25.9-32.8 MCHC (test code = 786-4) 31.3 g/dL 31.6-35.1 L RDW-SD (test code = 37002-9) 50.8 fL 39.0-49.9 H RDW-CV (test code = 788-0) 14.1 % 12.0-15.5 PLT (test code = 777-3) 208 166-358 MPV (test code = 66546-1) 10.5 fL 9.5-12.9 NRBC/100 WBC (test code = 1480711556) 0.0 0.0-10.0 NRBC x10^3 (test code = 1813076839) See_Comment [Automated messa ge] The system which generated this result transmitted reference range: 10*3/?L. The reference range was not used to interpret this result as normal/abnormal. GRAN MAT (NEUT) % (test code = 770-8) 61.1 % IMM GRAN % (test code = 5651357815) 0.30 % LYMPH % (test code = 736-9) 26.6 % MONO % (test code = 5905-5) 9.5 % EOS % (test code = 713-8) 1.7 % BASO % (test code = 706-2) 0.8 % GRAN MAT x10^3(ANC) (test code = 5552935437) 3.90 10*3/uL 1.88-7.09 IMM GRAN x10^3 (test code = 6420342440) 0.00-0.06 LYMPH x10^3 (test code = 731-0) 1.70 10*3/uL 1.32-3.29 MONO x10^3 (test code = 742-7) 0.61 10*3/uL 0.33-0.92 EOS x10^3 (test code = 711-2) 0.11 10*3/uL 0.03-0.39 BASO x10^3 (test code = 704-7) 0.05 10*3/uL 0.01-0.07 Lab Interpretation (test code = 71733-6) [facility]normal [facility] [id number] 00:00:00* Test Item Value Reference Range Interpretation Comme nts HEMOGLOBIN A1c (test code = 4548-4) 7.5 % See_Comment H [Automated [employer]] The system which generated this result transmitted reference range: 4.2-5.6 %. The reference range was not used to interpret this result as normal/abnormal. CALC LDL CHOL (test code = 03645-4) 66 MG/DL See_Comment [Automated [employer] ge] The system which generated this result transmitted reference range: <100 MG/DL. The reference range was not used to interpret this result as normal/abnormal. CHOLESTEROL (test code = 2093-3) 137 MG/DL See_Comment [Automated [employer] ge] The system which generated this result transmitted reference range: <200 MG/DL. The reference range was not used to interpret this result as normal/abnormal. HDL CHOLESTEROL (test code = 2085-9) 47 MG/DL See_Comment [Automated [employer]] The system which generated this result transmitted reference range: >39 MG/DL. The reference range was not used to interpret this result as normal/abnormal. RISK RATIO LDL/HDL (test code = 56676-3) 1.40 RATIO See_Comment [Automated message] The system which generated this result transmitted reference range: <3.22 RATIO. The reference range was not used to interpret this result as normal/abnormal. TRIGLYCERIDES (test code = 2571-8) 163 MG/DL See_Comment H [Automated [employer] ge] The system which generated this result transmitted reference range: <150 MG/DL. The reference range was not used to interpret this result as normal/abnormal. BASOPHILS (test code = 32866-5) 0.9 % COMMENTS (test code = 11541-6) (NOTE) DIAGNOSIS: (test code = 17688-6) (NOTE) EOSINOPHILS (test code = 47279-8) 1.7 % HEMATOCRIT (test code = 10581-0) 36.4 % See_Comment [Automated messa ge] The system which generated this result transmitted reference range: 34.0-45.0 %. The reference range was not used to interpret this result as normal/abnormal. HEMOGLOBIN (test code = 718-7) 11.6 G/DL See_Comment [Automated messa ge] The system which generated this result transmitted reference range: 11.5-15.5 G/DL. The reference range was not used to interpret this result as normal/abnormal. LYMPHOCYTES (test code = 30798-8) 29.3 % MCH (test code = 53364-8) 30.0 PG See_Comment [Automated messa ge] The system which generated this result transmitted reference range: 25.0-33.0 PG. The reference range was not used to interpret this result as normal/abnormal. MCHC (test code = 95351-3) 31.9 G/DL See_Comment [Automated messa ge] The system which generated this result transmitted reference range: 31.0-36.0 G/DL. The reference range was not used to interpret this result as normal/abnormal. MCV (test code = 21286-2) 94.1 fL See_Comment [Automated messa ge] The system which generated this result transmitted reference range: 80.0-99.0 fL. The reference range was not used to interpret this result as normal/abnormal. MICROSCOPIC DESCRIPTION: (test code = 84709-8) (NOTE) MONOCYTES (test code = 51341-6) 5.2 % NEUTROPHILS (test code = 45966-0) 62.9 % PATHOLOGIST: (test code = 68332-7) (NOTE) PLATELET COUNT (test code = 84674-4) 210 K/UL See_Comment [Automated messa ge] The system which generated this result transmitted reference range: 130-400 K/UL. The reference range was not used to interpret this result as normal/abnormal. RBC (test code = 66936-5) 3.87 M/UL See_Comment [Automated messa ge] The system which generated this result transmitted reference range: 3.80-5.40 M/UL. The reference range was not used to interpret this result as normal/abnormal. RDW (test code = 70531-7) 13.9 % See_Comment [Automated messa ge] The system which generated this result transmitted reference range: 11.5-15.0 %. The reference range was not used to interpret this result as normal/abnormal. WBC (test code = 73501-6) 7.1 K/UL See_Comment [Automated messa ge] The system which generated this result transmitted reference range: 3.5-11.0 K/UL. The reference range was not used to interpret this result as normal/abnormal. ALBUMIN, URINE, RANDOM (test code = 79191-9) 11.8 MG/DL NOT ESTAB MG/DL CALC ALBUMIN/CREAT, RND (test code = 05456-0) 120 MG/G See_Comment H [Automated messa ge] The system which generated this result transmitted reference range: <30 MG/G. The reference range was not used to interpret this result as normal/abnormal. CREATININE, URINE, CONC. (test code = 2161-8) 98.1 MG/DL NOT ESTAB MG/DL ALBUMIN (test code = 1751-7) 4.1 G/DL See_Comment [Automated messa ge] The system which generated this result transmitted reference range: 3.5-5.2 G/DL. The reference range was not used to interpret this result as normal/abnormal. ALKALINE PHOSPHATASE (test code = 6768-6) 93 U/L See_Comment [Automated message] The system which generated this result transmitted reference range: 40-142 U/L. The reference range was not used to interpret this result as normal/abnormal. BILIRUBIN, TOTAL (test code = 1975-2) 0.9 MG/DL See_Comment [Automated messa ge] The system which generated this result transmitted reference range: <=1.2 MG/DL. The reference range was not used to interpret this result as normal/abnormal. BUN (test code = 3094-0) 14 MG/DL See_Comment [Automated messa ge] The system which generated this result transmitted reference range: 8-23 MG/DL. The reference range was not used to interpret this result as normal/abnormal. CALCIUM (test code = 13438-0) 9.1 MG/DL See_Comment [Automated messa ge] The system which generated this result transmitted reference range: 8.5-10.5 MG/DL. The reference range was not used to interpret this result as normal/abnormal. CALC A/G RATIO (test code = 1759-0) 1.9 RATIO See_Comment [Automated messa ge] The system which generated this result transmitted reference range: 1.0-2.6 RATIO. The reference range was not used to interpret this result as normal/abnormal. CALC BUN/CREAT (test code = 3097-3) 14 RATIO See_Comment [Automated messa ge] The system which generated this result transmitted reference range: 6-28 RATIO. The reference range was not used to interpret this result as normal/abnormal. CALC GLOBULIN (test code = 69296-8) 2.2 G/DL See_Comment [Automated messa ge] The system which generated this result transmitted reference range: 1.9-3.7 G/DL. The reference range was not used to interpret this result as normal/abnormal. CARBON DIOXIDE (test code = 1963-8) 24 MEQ/L See_Comment [Automated messa ge] The system which generated this result transmitted reference range: 19-31 MEQ/L. The reference range was not used to interpret this result as normal/abnormal. CHLORIDE (test code = 2075-0) 109 MEQ/L See_Comment H [Automated messa ge] The system which generated this result transmitted reference range: 95-107 MEQ/L. The reference range was not used to interpret this result as normal/abnormal. CREATININE (test code = 2160-0) 0.97 MG/DL See_Comment [Automated messa ge] The system which generated this result transmitted reference range: 0.60-1.30 MG/DL. The reference range was not used to interpret this result as normal/abnormal. eGFR (2020 CKD-EPI) (test code = 81945-1) 59 ML/MIN/1.73 See_Comment L [Automated message] The system which generated this result transmitted reference range: >60 ML/MIN/1.73. The reference range was not used to interpret this result as normal/abnormal. GLUCOSE (test code = 1558-6) 137 MG/DL See_Comment H [Automated messa ge] The system which generated this result transmitted reference range: 70-99 MG/DL. The reference range was not used to interpret this result as normal/abnormal. POTASSIUM (test code = 2823-3) 4.3 MEQ/L See_Comment [Automated messa ge] The system which generated this result transmitted reference range: 3.5-5.4 MEQ/L. The reference range was not used to interpret this result as normal/abnormal. PROTEIN, TOTAL (test code = 2885-2) 6.3 G/DL See_Comment [Automated messa ge] The system which generated this result transmitted reference range: 6.1-8.3 G/DL. The reference range was not used to interpret this result as normal/abnormal. AST (test code = 1920-8) 25 U/L See_Comment [Automated messa ge] The system which generated this result transmitted reference range: 9-40 U/L. The reference range was not used to interpret this result as normal/abnormal. ALT (test code = 1742-6) 26 U/L See_Comment [Automated messa ge] The system which generated this result transmitted reference range: 5-40 U/L. The reference range was not used to interpret this result as normal/abnormal. SODIUM (test code = 2951-2) 144 MEQ/L See_Comment [Automated messa ge] The system which generated this result transmitted reference range: 133-146 MEQ/L. The reference range was not used to interpret this result as normal/abnormal. urinalysis, [id number] 09:20:56* Test Item Value Reference Range Interpretation Comme nts Leukocytes (test code = Leukocytes) 1+ Nitrite (test code = Nitrite) negative Urobilinogen (test code = Urobilinogen) Normal Protein (test code = Protein) 1+ pH (test code = pH) 5.0 Blood (test code = Blood) Hemolyzed: Trace Specific [place] (test code = Specific [place]) 1.020 Ketone (test code = Ketone) Negative Bilirubin (test code = Bilirubin) Negative Glucose (test code = Glucose) Negative Appearance (test code = Appearance) Clear Color (test code = Color) Yellow Horace Lezama [id number] 18:13:33* Test Item Value Reference Range Interpretation Comme nts TROPONIN I (test code = 2096775454) 0.005 ng/mL <=0.034 ALDO (test code = ALDO) [...] of biotin. Lab Interpretation (test code = 13540-8) [facility] [id number] 16:44:08* Test Item Value Reference Range Interpretation Comme nts TROPONIN I (test code = 1682046657) 0.004 ng/mL <=0.034 ALDO (test code = [...] of biotin. Lab Interpretation (test code = 55437-6) Normal [facility] [id number] 16:41:47* Test Item Value Reference Range Interpretation Comme nts NT-proBNP (test code = 15629-8) 394 pg/mL <=125 ALDO (test code = ALDO) Result Indeterminate-Consid er causes of NT-proBNP elevation other than Heart failure such as acute coronary syndrome, pulmonary embolism, pulmonary hypertension, sepsis, stroke, and renal dysfunction. Lab Interpretation (test code = 17861-3) Abnormal [facility]2024-10-19 16:32:49* Test Item Value Reference Range Interpretation Comme nts MAGNESIUM (test code = 5827182175) 2.1 mg/dL 1.7-2.4 Lab Interpretation (test cod e = 74625-7) Normal [facility] PANEL (56861)2024-05-10 16:32:29* Test Item Value Reference Range Interpretation Comme nts NA (test code = 9086539730) 137 mmol/L 135-145 K (test code = 6390712093) 4.5 mmol/L 3.5-5.0 CL (test code = 2264419576) 107 mmol/L 98-108 CO2 TOTAL (test code = 5644218941) 19 mmol/L 23-31 L AGAP (test code = 3085982647) 11 2-16 BUN (test code = 5659382687) 31 mg/dL 7-23 H GLUCOSE (test code = 1545182567) 186 mg/dL 70-110 H CREATININE (test code = 2160-0) 1.08 mg/dL 0.50-1.04 H TOTAL BILI (test code = 6036712138) 1.2 mg/dL 0.1-1.1 H CALCIUM (test code = 0530158080) 9.2 mg/dL 8.6-10.6 T PROTEIN (test code = 8958877899) 7.2 g/dL 6.3-8.2 ALBUMIN (test code = 7294633424) 4.3 g/dL 3.5-5.0 ALK PHOS (test code = 7690781580) 85 U/L 34-122 ALTv (test code = 1742-6) 19 U/L 5-35 AST(SGOT) (test code = 2044853276) 24 U/L 13-40 eGFR (test code = 43107-6) 51.7 mL/min/1.73m2 CKD-EPI eGFR (2020). Assuming creatinine has been stable day-to-day for at least three months, the eGFR indicates Category G3a (45 - 59 mL/min/1.73 m2) Lab Interpretation (test code = 98416-7) Abnormal [facility] WITH [id number] 16:17:31* Test Item Value Reference Range Interpretation [...] 32.0 g/dL 31.6-35.1 RDW-SD (test code = 03048-7) 49.2 fL 39.0-49.9 RDW-CV (test code = 788-0) 14.0 % 12.0-15.5 PLT (test code = 777-3) 224 166-358 MPV (test code = 18997-0) 9.8 fL 9.5-12.9 NRBC/100 WBC (test code = 9693381031) 0.0 0.0-10.0 NRBC x10^3 (test code = 9809021225) See_Comment [Automated messa ge] The system which generated this result transmitted reference range: 10*3/?L. The reference range was not used to interpret this result as normal/abnormal. GRAN MAT (NEUT) % (test code = 770-8) 66.0 % IMM GRAN % (test code = 6254294875) 0.30 % LYMPH % (test code = 736-9) 23.1 % MONO % (test code = 5905-5) 7.8 % EOS % (test code = 713-8) 1.5 % BASO % (test code = 706-2) 1.3 % GRAN MAT x10^3(ANC) (test code = 0775962590) 4.40 10*3/uL 1.88-7.09 IMM GRAN x10^3 (test code = 8662521339) 0.00-0.06 LYMPH x10^3 (test code = 731-0) 1.54 10*3/uL 1.32-3.29 MONO x10^3 (test code = 742-7) 0.52 10*3/uL 0.33-0.92 EOS x10^3 (test code = 711-2) 0.10 10*3/uL 0.03-0.39 BASO x10^3 (test code = 704-7) 0.09 10*3/uL 0.01-0.07 H Lab Interpretation (test code = 55682-3) Abnormal [facility] [id number] 00:00:00* Test Item Value Reference Range Interpretation Comme [facility] HEMOGLOBIN A1c (test code = 4548-4) 7.3 % See_Comment H [Automated [employer] ge] The system which generated this result transmitted reference range: 4.2-5.6 %. The reference range was not used to interpret this result as normal/abnormal. [place] TIME OR (NON-REPORTABLE)2023-12-28 17:07:41These images do not require a Radiology diagnostic report.[facility] (NON-REPORTABLE)2023-12-28 17:07:41These images do not require a Radiology diagnostic report.[facility] GLUCOSE (AUTOMATED) 2023-12-28 13:04:41* Test Item Value Reference Range Interpretation Comme [facility] POCT GLU (test code = 8069688390) 135 mg/dL 70-110 H Lab Interpretation (test cod e = 87249-1) Abnormal [facility] GLUCOSE (AUTOMATED)2023-12-28 13:04:41* Test Item Value Reference Range Interpretation Comme [facility] POCT GLU (test code = 7559171760) 135 mg/dL 70-110 H Lab Interpretation (test cod e = 35723-9) Abnormal [facility] [id number] 20:22:02* Test Item Value Reference Range Interpretation Comme [facility] NT-proBNP (test code = 48903-4) 557 pg/mL <=125 ALDO (test code = ALDO) Result Indeterminate-Consid er causes of NT-proBNP elevation other than Heart failure such as acute coronary syndrome, pulmonary embolism, pulmonary hypertension, sepsis, stroke, and renal dysfunction. Lab Interpretation (test code = 58965-7) [facility]normal [facility]2024-04-19 20:13:19* Test Item Value Reference Range Interpretation Comme [facility] MAGNESIUM (test code = 3354632823) 2.1 mg/dL 1.7-2.4 Lab Interpretation (test cod e = 59501-1) Normal [facility] (NA, K, CL, CO2, GLUCOSE, BUN, CREATININE, CA)2023-11-09 20:12:59* Test Item Value Reference Range Interpretation Comme nts NA (test code = 0284152356) 137 mmol/L 135-145 K (test code = 5786366676) 4.8 mmol/L 3.5-5.0 CL (test code = 4602980784) 103 mmol/L 98-108 CO2 TOTAL (test code = 7064237426) 24 mmol/L 23-31 AGAP (test code = 9733437002) 10 2-16 BUN (test code = 6472598060) 27 mg/dL 7-23 H GLUCOSE (test code = 2676646650) 171 mg/dL 70-110 H CREATININE (test code = 2160-0) 1.20 mg/dL 0.50-1.04 H CALCIUM (test code = 8617940641) 8.6 mg/dL 8.6-10.6 eGFR (test code = 75762-9) 45.9 mL/min/1.73m2 CKD-EPI eGFR (2020). Assuming creatinine has been stable day-to-day for at least three months, the eGFR indicates Category G3a (45 - 59 mL/min/1.73 m2) Lab Interpretation (test code = 84823-1) [facility] [id number] 01:19:02 Dual Chamber Pacemaker Implantation, ILR RemovalProcedure: [...] were no acute complications. Device Characteristics:Pulse generator: BugSense Model L311 RA Lead: [place] ScientificModel 7841, P waves 3.9 mV, Impedance 549 ohms, Threshold 0.6 V@0.4msecRV Lead: [place] [employer] Model 7842, R waves 9.1 mV, [...] clinic in 6 to 8 weeks. [place] Sykes [facility] [place] [place] [facility] [id number] 01:19:02Dual Chamber Pacemaker Implantation, ILR RemovalProcedure: Dual-chamber [...] were no acute complications. Device Characteristics:Pulse generator: [place] [employer] Model L311 RA Lead: [place] ScientificModel 7841, P waves 3.9 mV, Impedance 549 ohms, Threshold 0.6 V@0.4msecRV Lead: [place] [employer] Model 7842, R waves 9.1 mV, [...] to 8 weeks. Robert Sykes, MDCardiac Electrophysiology [facility] WITH [id number] 15:06:17* Test Item Value Reference Range Interpretation [...] 32.2 g/dL 31.6-35.1 RDW-SD (test code = 33425-3) 47.5 fL 39.0-49.9 RDW-CV (test code = 788-0) 13.8 % 12.0-15.5 PLT (test code = 777-3) 210 166-358 MPV (test code = 10518-4) 9.6 fL 9.5-12.9 NRBC/100 WBC (test code = 4887428978) 0.0 0.0-10.0 NRBC x10^3 (test code = 3382025884) See_Comment [Automated messa ge] The system which generated this result transmitted reference range: 10*3/?L. The reference range was not used to interpret this result as normal/abnormal. GRAN MAT (NEUT) % (test code = 770-8) 68.1 % IMM GRAN % (test code = 2778462350) 0.30 % LYMPH % (test code = 736-9) 19.9 % MONO % (test code = 5905-5) 8.0 % EOS % (test code = 713-8) 2.8 % BASO % (test code = 706-2) 0.9 % GRAN MAT x10^3(ANC) (test code = 0778950025) 4.33 10*3/uL 1.88-7.09 IMM GRAN x10^3 (test code = 4468752191) 0.00-0.06 LYMPH x10^3 (test code = 731-0) 1.27 10*3/uL 1.32-3.29 L MONO x10^3 (test code = 742-7) 0.51 10*3/uL 0.33-0.92 EOS x10^3 (test code = 711-2) 0.18 10*3/uL 0.03-0.39 BASO x10^3 (test code = 704-7) 0.06 10*3/uL 0.01-0.07 Lab Interpretation (test code = 21324-9) Abnormal [facility] GLUCOSE (AUTOMATED)2023-05-19 15:19:17* Test Item Value Reference Range Interpretation Comme nts POCT GLU (test code = 8456812033) 123 mg/dL 70-110 H Lab Interpretation (test cod e = 58069-4) Abnormal [facility] GLUCOSE (AUTOMATED)2023-05-19 03:01:53* Test Item Value Reference Range Interpretation Comme nts POCT GLU (test code = 5184861681) 162 mg/dL 70-110 H Lab Interpretation (test cod e = 09588-3) Abnormal [facility] GLUCOSE (AUTOMATED)2023-05-18 21:46:59* Test Item Value Reference Range Interpretation Comme nts POCT GLU (test code = 0737259061) 155 mg/dL 70-110 H Lab Interpretation (test cod e = 94061-8) [facility]normal [facility] [id number] 17:11:56* Test Item Value Reference Range Interpretation Comme nts TROPONIN I (test code = 9859267145) 0.000 ng/mL <=0.034 ALDO (test code = [...] of biotin. Lab Interpretation (test code = 75183-1) Normal [facility] WEA-[id number] 17:09:33* Test Item Value Reference Range Interpretation Comme nts NT-proBNP (test code = 75485-7) 244 pg/mL <=125 ALDO (test code = ALDO) Result Indeterminate-Consid er causes of NT-proBNP elevation other than Heart failure such as acute coronary syndrome, pulmonary embolism, pulmonary hypertension, sepsis, stroke, and renal dysfunction. Lab Interpretation (test code = 05429-8) Abnormal [facility] METABOLIC PANEL (NA, K, CL, CO2, GLUCOSE, BUN, CREATININE, CA)2023-05-18 16:59:54* Test Item Value Reference Range Interpretation Comme nts NA (test code = 4233431377) 139 mmol/L 135-145 K (test code = 5341721713) 5.0 mmol/L 3.5-5.0 CL (test code = 4100991048) 107 mmol/L 98-108 CO2 TOTAL (test code = 9633029692) 18 mmol/L 23-31 L AGAP (test code = 4170646658) 14 2-16 BUN (test code = 9564260379) 31 mg/dL 7-23 H GLUCOSE (test code = 3491928983) 171 mg/dL 70-110 H CREATININE (test code = 4091452441) 1.00 mg/dL 0.50-1.04 CALCIUM (test code = 1531333418) 8.9 mg/dL 8.6-10.6 eGFR (test code = 0805772048) 53.3 mL/min/1.73m2 ALDO (test code = ALDO) [...] imaging tests). Lab Interpretation (test code = 38327-5) Abnormal [facility] WITH [id number] 16:36:49* Test Item Value Reference Range Interpretation Comme nts WBC (test code = 6690-2) 7.21 See_Comment [Automated [employer]] The system which generated this result transmitted reference range: 4.30 - 11.10 10*3/?L. The reference range was not used to interpret this result as normal/abnormal. RBC (test code = 789-8) 3.39 See_Comment L [Automated [employer]] The system which generated this result transmitted [...] 32.7 g/dL 31.6-35.1 RDW-SD (test code = 88885-0) 47.6 fL 39.0-49.9 RDW-CV (test code = 788-0) 14.0 % 12.0-15.5 PLT (test code = 777-3) 216 See_Comment [Automated [employer]] The system which generated this result transmitted reference range: 166 - 358 10*3/?L. The reference range was not used to interpret this result as normal/abnormal. MPV (test code = 21422-1) 9.8 fL 9.5-12.9 NRBC/100 WBC (test code = 9792323661) 0.0 See_Comment [Automated [employer] ssage] The system which generated this result transmitted reference range: 0.0 - 10.0 /100 WBCs. The reference range was not used to interpret this result as normal/abnormal. NRBC x10^3 (test code = 9047414913) See_Comment [Automated messa ge] The system which generated this result transmitted reference range: 10*3/?L. The reference range was not used to interpret this result as normal/abnormal. GRAN MAT (NEUT) % (test code = 770-8) 68.9 % IMM GRAN % (test code = 5520650178) 0.30 % LYMPH % (test code = 736-9) 21.6 % MONO % (test code = 5905-5) 7.2 % EOS % (test code = 713-8) 1.2 % BASO % (test code = 706-2) 0.8 % GRAN MAT x10^3(ANC) (test code = 6708145455) 4.96 10*3/uL 1.88-7.09 IMM GRAN x10^3 (test code = 8072308475) 0.00-0.06 LYMPH x10^3 (test code = 731-0) 1.56 10*3/uL 1.32-3.29 MONO x10^3 (test code = 742-7) 0.52 10*3/uL 0.33-0.92 EOS x10^3 (test code = 711-2) 0.09 10*3/uL 0.03-0.39 BASO x10^3 (test code = 704-7) 0.06 10*3/uL 0.01-0.07 Lab Interpretation (test code = 79215-6) [facility]normal [facility] [id number] 00:00:00* Test Item Value Reference Range Interpretation Comme nts HEMOGLOBIN A1c (test code = 4548-4) 6.7 % See_Comment H [Automated messa ge] The system which generated this result transmitted reference range: 4.2-5.6 %. The reference range was not used to interpret this result as normal/abnormal. POCT GLUCOSE (AUTOMATED)2023-04-10 22:02:48* Test Item Value Reference Range Interpretation Comme nts POCT GLU (test code = 4733930747) 121 mg/dL 70-110 H Lab Interpretation (test cod e = 23877-7) [facility]normal [facility] use with [facility] Infusion)2023-04-10 19:50:47* Test Item Value Reference Range Interpretation Comme nts APTT Patient (test code = 3173-2) 50 See_Comment H [Automated messa ge] The system which generated this result transmitted reference range: 26 - 36 Seconds. The reference range was not used to interpret this result as normal/abnormal. Lab Interpretation (test code = 59849-4) Abnormal [facility] GLUCOSE (AUTOMATED)2023-04-10 19:17:26* Test Item Value Reference Range Interpretation Comme nts POCT GLU (test code = 8947068765) 153 mg/dL 70-110 H Lab Interpretation (test cod e = 57900-2) Abnormal [facility] GLUCOSE (AUTOMATED)2023-04-10 15:33:46* Test Item Value Reference Range Interpretation Comme nts POCT GLU (test code = 0140839700) 247 mg/dL 70-110 H Lab Interpretation (test cod e = 78551-1) Abnormal [facility] GLUCOSE (AUTOMATED)2023-04-10 12:47:59* Test Item Value Reference Range Interpretation Comme nts POCT GLU (test code = 5630777149) 173 mg/dL 70-110 H Lab Interpretation (test cod e = 39908-7) Abnormal [facility] ACT LOW [id number] 13:41:50* Test Item Value Reference Range Interpretation Comme nts ACTLR (test code = 9369842624) 339 See_Comment H [Automated messa ge] The system which generated this result transmitted reference range: 89 - 169 Seconds. The reference range was not used to interpret this result as normal/abnormal. Lab Interpretation (test code = 86143-6) Abnormal [facility] ACT LOW [id number] 13:41:50* Test Item Value Reference Range Interpretation Comme nts ACTLR (test code = 6382183028) 284 See_Comment H [Automated messa ge] The system which generated this result transmitted reference range: 89 - 169 Seconds. The reference range was not used to interpret this result as normal/abnormal. Lab Interpretation (test code = 91479-9) Abnormal [facility] GLUCOSE (AUTOMATED)2023-04-07 17:19:13* Test Item Value Reference Range Interpretation Comme nts POCT GLU (test code = 1299261498) 341 mg/dL 70-110 H Lab Interpretation (test cod e = 45459-5) Abnormal [facility] GLUCOSE (AUTOMATED)2023-04-07 17:19:13* Test Item Value Reference Range Interpretation Comme nts POCT GLU (test code = 5642237743) 341 mg/dL 70-110 H Lab Interpretation (test cod e = 28245-5) Abnormal [facility] GLUCOSE (AUTOMATED)2023-04-07 13:54:40* Test Item Value Reference Range Interpretation Comme nts POCT GLU (test code = 2039628263) 131 mg/dL 70-110 H Lab Interpretation (test cod e = 52001-1) Abnormal [facility] GLUCOSE (AUTOMATED)2023-04-07 13:54:40* Test Item Value Reference Range Interpretation Comme nts POCT GLU (test code = 5264964247) 131 mg/dL 70-110 H Lab Interpretation (test cod e = 97830-3) Abnormal [facility] GLUCOSE (AUTOMATED)2023-04-07 03:43:01* Test Item Value Reference Range Interpretation Comme nts POCT GLU (test code = 6296943102) 207 mg/dL 70-110 H Lab Interpretation (test cod e = 63049-2) Abnormal [facility] GLUCOSE (AUTOMATED)2023-04-07 03:43:01* Test Item Value Reference Range Interpretation Comme nts POCT GLU (test code = 6330840184) 207 mg/dL 70-110 H Lab Interpretation (test cod e = 38129-4) Abnormal [facility] GLUCOSE (AUTOMATED)2023-04-06 21:00:15* Test Item Value Reference Range Interpretation Comme nts POCT GLU (test code = 8980958445) 137 mg/dL 70-110 H Lab Interpretation (test cod e = 54299-2) Abnormal [facility] GLUCOSE (AUTOMATED)2023-04-06 21:00:15* Test Item Value Reference Range Interpretation Comme nts POCT GLU (test code = 3947517676) 137 mg/dL 70-110 H Lab Interpretation (test cod e = 54997-1) Abnormal [facility] [id number] 07:17:35* Test Item Value Reference Range Interpretation Comme nts TROPONIN I (test code = 0923088235) 0.006 ng/mL <=0.034 ALDO (test code = [...] of biotin. Lab Interpretation (test code = 06932-4) Normal [facility]. METABOLIC PANEL (86529)2023-03-06 05:08:40* Test Item Value Reference Range Interpretation Comme nts NA (test code = 8909261876) 141 mmol/L 135-145 K (test code = 7861557026) 4.0 mmol/L 3.5-5.0 CL (test code = 8516019700) 105 mmol/L 98-108 CO2 TOTAL (test code = 8076274819) 26 mmol/L 23-31 AGAP (test code = 6096189749) 10 2-16 BUN (test code = 9100712394) 27 mg/dL 7-23 H GLUCOSE (test code = 3190701938) 163 mg/dL 70-110 H CREATININE (test code = 2185895786) 0.99 mg/dL 0.50-1.04 TOTAL BILI (test code = 2356850560) 1.0 mg/dL 0.1-1.1 CALCIUM (test code = 2798055203) 9.4 mg/dL 8.6-10.6 T PROTEIN (test code = 8524837483) 7.2 g/dL 6.3-8.2 ALBUMIN (test code = 8815561157) 4.2 g/dL 3.5-5.0 ALK PHOS (test code = 3841476473) 100 U/L 34-122 ALTv (test code = 1742-6) 18 U/L 5-35 AST(SGOT) (test code = 2011484803) 26 U/L 13-40 eGFR (test code = 6596683831) 54.0 mL/min/1.73m2 ALDO (test code = ALDO) [...] imaging tests). Lab Interpretation (test code = 96183-8) [facility]normal [facility]SU[facility] [id number] 04:57:57* Test Item Value Reference Range Interpretation Comme nts TROPONIN I (test code = 3208002090) 0.004 ng/mL <=0.034 ALDO (test code = [...] of biotin. Lab Interpretation (test code = 92591-3) Normal [facility] [id number] 04:55:15* Test Item Value Reference Range Interpretation Comme nts NT-proBNP (test code = 84294-4) 368 pg/mL <=125 ALDO (test code = ALDO) Result Indeterminate-Consid er causes of NT-proBNP elevation other than Heart failure such as acute coronary syndrome, pulmonary embolism, pulmonary hypertension, sepsis, stroke, and renal dysfunction. Lab Interpretation (test code = 44494-7) Abnormal [facility]oProthrombin Time / [id number] 04:40:36* Test Item Value Reference Range Interpretation Comme nts PROTIME PATIENT (test code = 5964-2) 13.1 See_Comment [Automated [employer]] The system which generated this result transmitted reference range: 12.0 - 14.7 Seconds. The reference range was not used to interpret this result as normal/abnormal. INR (test code = 6301-6) 1.0 Normal INR <1.1; Warfarin Therapeutic range 2.0 to 3.0 or 2.5 to 3.5, depending upon the indications. Lab Interpretation (test code = 76700-0) Normal [facility] WITH [id number] 04:32:55* Test Item Value Reference Range Interpretation Comme nts WBC (test code = 6690-2) 5.49 See_Comment [Automated [employer]] The system which generated this result transmitted [...] 32.7 g/dL 31.6-35.1 RDW-SD (test code = 13369-5) 48.0 fL 39.0-49.9 RDW-CV (test code = 788-0) 14.3 % 12.0-15.5 PLT (test code = 777-3) 188 See_Comment [Automated messa ge] The system which generated this result transmitted reference range: 166 - 358 10*3/?L. The reference range was not used to interpret this result as normal/abnormal. MPV (test code = 46934-6) 9.9 fL 9.5-12.9 NRBC/100 WBC (test code = 1261564929) 0.0 See_Comment [Automated [employer] ss[employer]] The system which generated this result transmitted reference range: 0.0 - 10.0 /100 WBCs. The reference range was not used to interpret this result as normal/abnormal. NRBC x10^3 (test code = 6137574556) See_Comment [Automated messa ge] The system which generated this result transmitted reference range: 10*3/?L. The reference range was not used to interpret this result as normal/abnormal. GRAN MAT (NEUT) % (test code = 770-8) 53.8 % IMM GRAN % (test code = 4645962174) 0.20 % LYMPH % (test code = 736-9) 32.6 % MONO % (test code = 5905-5) 9.8 % EOS % (test code = 713-8) 2.9 % BASO % (test code = 706-2) 0.7 % GRAN MAT x10^3(ANC) (test code = 5796217995) 2.95 10*3/uL 1.88-7.09 IMM GRAN x10^3 (test code = 5219042600) 0.00-0.06 LYMPH x10^3 (test code = 731-0) 1.79 10*3/uL 1.32-3.29 MONO x10^3 (test code = 742-7) 0.54 10*3/uL 0.33-0.92 EOS x10^3 (test code = 711-2) 0.16 10*3/uL 0.03-0.39 BASO x10^3 (test code = 704-7) 0.04 10*3/uL 0.01-0.07 Lab Interpretation (test code = 62146-3) [facility]normal [facility] [id number] 00:00:00* Test Item Value Reference Range Interpretation Comme nts HEMOGLOBIN A1c (test code = 4548-4) 7.1 % See_Comment H [Automated [employer]] The system which generated this result transmitted reference range: 4.2-5.6 %. The reference range was not used to interpret this result as normal/abnormal. TROPONIN [id number] 02:56:03* Test Item Value Reference Range Interpretation Comments TROPONIN I (test code = 5275260648) 0.006 ng/mL See_Comment [Automated message] The system [...] of biotin. Lab Interpretation (test code = 70494-2) Normal [facility] METABOLIC PANEL (11130)2022-08-20 02:38:00* Test Item Value Reference Range Interpretation Comme nts NA (test code = 0936660970) 139 mmol/L 135-145 K (test code = 6397938665) 4.5 mmol/L 3.5-5.0 CL (test code = 3540516628) 102 mmol/L 98-108 CO2 TOTAL (test code = 0861826336) 26 mmol/L 23-31 AGAP (test code = 1123795289) 2-16 BUN (test code = 7645035182) 17 mg/dL 7-23 GLUCOSE (test code = 6369750265) 139 mg/dL 70-110 H CREATININE (test code = 3465063217) 0.98 mg/dL 0.50-1.04 TOTAL BILI (test code = 8529924845) 0.9 mg/dL 0.1-1.1 CALCIUM (test code = 8306739720) 9.2 mg/dL 8.6-10.6 T PROTEIN (test code = 1882321888) 7.2 g/dL 6.3-8.2 ALBUMIN (test code = 6688113509) 4.5 g/dL 3.5-5.0 ALK PHOS (test code = 2695528816) 88 U/L 34-122 ALTv (test code = 1742-6) 16 U/L 5-35 AST(SGOT) (test code = 0841439260) 26 U/L 13-40 eGFR (test code = 7821160098) mL/min/1.73m2 ALDO (test code = ALDO) Association [...] imaging tests). Lab Interpretation (test code = 25801-0) Abnormal [facility] WITH [id number] 02:19:37* Test Item Value Reference Range Interpretation Comme nts WBC (test code = 6690-2) See_Comment H [[employer]] The system which generated this result transmitted reference range: 4.30 - 11.10 10*3/?L. The reference range was not used to interpret this result as normal/abnormal. RBC (test code = 789-8) See_Comment L [Automated [employer]] The system which generated this result transmitted [...] 31.9 g/dL 31.6-35.1 RDW-SD (test code = 88846-4) 47.7 fL 39.0-49.9 RDW-CV (test code = 788-0) 14.1 % 12.0-15.5 PLT (test code = 777-3) See_Comment [Automated messa ge] The system which generated this result transmitted reference range: 166 - 358 10*3/?L. The reference range was not used to interpret this result as normal/abnormal. MPV (test code = 93438-1) 9.5 fL 9.5-12.9 NRBC/100 WBC (test code = 6890136035) See_Comment [Automated [employer]age] The system which generated this result transmitted reference range: 0.0 - 10.0 /100 WBCs. The reference range was not used to interpret this result as normal/abnormal. NRBC x10^3 (test code = 1471371914) See_Comment [Automated messa ge] The system which generated this result transmitted reference range: 10*3/?L. The reference range was not used to interpret this result as normal/abnormal. GRAN MAT (NEUT) % (test code = 770-8) 82.8 % IMM GRAN % (test code = 0989480161) 0.40 % LYMPH % (test code = 736-9) 8.9 % MONO % (test code = 5905-5) 6.1 % EOS % (test code = 713-8) 1.2 % BASO % (test code = 706-2) 0.6 % GRAN MAT x10^3(ANC) (test code = 5832578170) 9.30 10*3/uL 1.88-7.09 H IMM GRAN x10^3 (test code = 8517202103) 0.04 10*3/uL 0.00-0.06 LYMPH x10^3 (test code = 731-0) 1.00 10*3/uL 1.32-3.29 L MONO x10^3 (test code = 742-7) 0.68 10*3/uL 0.33-0.92 EOS x10^3 (test code = 711-2) 0.13 10*3/uL 0.03-0.39 BASO x10^3 (test code = 704-7) 0.07 10*3/uL 0.01-0.07 Lab Interpretation (test code = 70749-3) [facility]2022-[facility]-12 21:43:54* Test Item Value Reference Range Interpretation Comme nts Height (test code = 1363252029) in Weight (test code = 9948956568) lbs Systolic BP (test code = 4421035044) mmHg Diastolic BP (test code = 7208848010) mmHg Heart Rate (test code = 8840148767) bpm LVOT stroke volume (test code = 5489195550) 54.70 cm3 EF(Teich) (test code = 0689692920) 64.80 % LVIDD (test code = 5785888203) 4.10 cm LVIDS (test code = 6118095797) 2.70 cm Left Ventricular End Systolic Volume by Teichholz Method (test code = 4935530) 26.9 mL Left Ventricular End Diastolic Volume by Teichholz Method (test code = 3740248) 76.4 mL IVS (test code = 2007914074) 0.73 cm LVPWD (test code = 1170225275) 0.78 cm LVOT diameter (test code = 1109508032) 1.94 cm LVOT area (test code = 3079533471) 3.00 cm2 FS (test code = 5373884508) 35 % MV Peak E Courtney (test code = 4958964396) 72.8 cm/s MV Peak A Courtney (test code = 2948075699) 93.4 cm/s E/A ratio (test code = 6234718075) ratio E wave decelartion time (test code = 4649568195) 0.23 s LA volume (BP) (test code = 7233409930) 18.7 mL LVOT peak courtney (test code = 6303903358) 87.0 cm/s LVOT mn grad (test code = 2907349586) mmHg LA size (test code = 4106594308) 2.9 cm LAV(MOD-sp2) (test code = 5166590338) 10.30 mL LAV(MOD-sp4) (test code = 7423346616) 24.00 mL Tapse (test code = 1738022577) 1.22 cm Aortic valve mean velocity (test code = 5083386129) 74.5 cm/s Ao peak courtney (test code = 3609944470) 123.1 cm/s Ao VTI (test code = 2516970710) 25.2 cm AV LVOT peak gradient (test code = 7777634210) mmHg LVOT peak VTI (test code = 1158909689) 18.5 cm AV area by cont VTI (test code = 5435656555) 2.2 cm2 AV area peak courtney (test code = 1397337543) 2.1 cm2 LV V1 mean (test code = 8385538096) 54.70 cm/s Ao max PG (test code = 8140418351) 6.10 mm[Hg] MV Prop V (test code = 3767325707) 46.10 cm/s TR Peak Courtney (test code = 0711135705) 220.8 cm/s Triscuspid Valve Regurgitation Peak Gradient (test code = 3984332416) mmHg Ao root diam (test code = 2381876932) 2.90 cm AV peak gradient (test code = 8787374464) mmHg AV valve area (test code = 3142521223) 2.17 cm2 AV mean gradient (test code = 0134002117) mmHg Aortic root (test code = 7239278244) 2.9 cm Ao root annulus (test code = 7103406588) 2.9 cm PW (test code = 2835986265) 0.78 cm 0.6-1.1 EF - 2D (test code = 28243739) 64.80 % Interventricular Septum Diastolic Thickness by 2D (test code = 1006613) 0.73 cm LA Volume Index (BP) (test code = 2892320583) 13.6 mL/m2 BSA (test code = 3404084238) 1.37 m2 RV-pozo length (test code = 3253688020) 4.3 cm A4C EF (test code = 2973112031) 60.70 % EF(sp4-el) (test code = 3626081168) 58.50 % SV(MOD-sp4) (test code = 3419800471) 47.00 mL SV(sp4-el) (test code = 6944803178) 44.90 mL LV Diastolic Volume (BP) (test code = 1236059851) 68.7 mL A2C EF (test code = 0429994666) 61.80 % EF(MOD-bp) (test code = 9774562045) 60.10 % EF(sp2-el) (test code = 9579909763) 61.60 % LV Systolic Volume (BP) (test code = 6517471969) 27.4 mL SV(MOD-bp) (test code = 4504098772) 41.30 mL SV(MOD-sp2) (test code = 1605365081) 37.50 mL EF (test code = 8859865115) Left Ventricular Stroke Volume by 2-D Biplane-MOD (test code = 8358845) 41.3 mL LV Diastolic Volume Index (BP) (test code = 9067907732) 50.1 mL/m2 LV Systolic Volume Index (BP) (test code = 0625188440) 20.0 mL/m2 Radiology Study observation (narrative) (test code = 20523-9) ALDO (test code = ALDO) ?Left?Ventricle: Left [...] were obtained. Lumason ultrasound enhancing agent used. [facility]20[facility]12 21:43:54* Test Item Value Reference Range Interpretation Comme nts Height (test code = 8321562427) in Weight (test code = 2223565902) lbs Systolic BP (test code = 9176111034) mmHg Diastolic BP (test code = 7480660580) mmHg Heart Rate (test code = 5051812402) bpm LVOT stroke volume (test code = 0608464192) 54.70 cm3 EF(Teich) (test code = 4922859660) 64.80 % LVIDD (test code = 1411182631) 4.10 cm LVIDS (test code = 6911516594) 2.70 cm Left Ventricular End Systolic Volume by Teichholz Method (test code = 5795581) 26.9 mL Left Ventricular End Diastolic Volume by Teichholz Method (test code = 9690291) 76.4 mL IVS (test code = 9862203271) 0.73 cm LVPWD (test code = 3423330857) 0.78 cm LVOT diameter (test code = 1325819592) 1.94 cm LVOT area (test code = 7873103872) 3.00 cm2 FS (test code = 0814242635) 35 % MV Peak E Courtney (test code = 5709801769) 72.8 cm/s MV Peak A Courtney (test code = 4318038235) 93.4 cm/s E/A ratio (test code = 6057566375) ratio E wave decelartion time (test code = 3368812168) 0.23 s LA volume (BP) (test code = 6071918680) 18.7 mL LVOT peak courtney (test code = 0942080862) 87.0 cm/s LVOT mn grad (test code = 2641603774) mmHg LA size (test code = 9775442473) 2.9 cm LAV(MOD-sp2) (test code = 5570811284) 10.30 mL LAV(MOD-sp4) (test code = 0407859449) 24.00 mL Tapse (test code = 3654018870) 1.22 cm Aortic valve mean velocity (test code = 4456283017) 74.5 cm/s Ao peak courtney (test code = 2764780005) 123.1 cm/s Ao VTI (test code = 2232467502) 25.2 cm AV LVOT peak gradient (test code = 2209310970) mmHg LVOT peak VTI (test code = 0483362767) 18.5 cm AV area by cont VTI (test code = 6137587304) 2.2 cm2 AV area peak courtney (test code = 4063648915) 2.1 cm2 LV V1 mean (test code = 0827016415) 54.70 cm/s Ao max PG (test code = 6634685759) 6.10 mm[Hg] MV Prop V (test code = 3291399128) 46.10 cm/s TR Peak Courtney (test code = 9965372139) 220.8 cm/s Triscuspid Valve Regurgitation Peak Gradient (test code = 2830164792) mmHg Ao root diam (test code = 9280771338) 2.90 cm AV peak gradient (test code = 0075894411) mmHg AV valve area (test code = 8823886771) 2.17 cm2 AV mean gradient (test code = 6381445191) mmHg Aortic root (test code = 1376825406) 2.9 cm Ao root annulus (test code = 0841026091) 2.9 cm PW (test code = 1640624675) 0.78 cm 0.6-1.1 EF - 2D (test code = 78663807) 64.80 % Interventricular Septum Diastolic Thickness by 2D (test code = 0877072) 0.73 cm LA Volume Index (BP) (test code = 3717671980) 13.6 mL/m2 BSA (test code = 7020399073) 1.37 m2 RV-pozo length (test code = 6936414547) 4.3 cm A4C EF (test code = 0621063316) 60.70 % EF(sp4-el) (test code = 6111431566) 58.50 % SV(MOD-sp4) (test code = 2855564772) 47.00 mL SV(sp4-el) (test code = 8514415569) 44.90 mL LV Diastolic Volume (BP) (test code = 7109415518) 68.7 mL A2C EF (test code = 5178377626) 61.80 % EF(MOD-bp) (test code = 3213086011) 60.10 % EF(sp2-el) (test code = 5047230134) 61.60 % LV Systolic Volume (BP) (test code = 0624978626) 27.4 mL SV(MOD-bp) (test code = 8285204665) 41.30 mL SV(MOD-sp2) (test code = 9920773610) 37.50 mL EF (test code = 3616147415) Left Ventricular Stroke Volume by 2-D Biplane-MOD (test code = 4094473) 41.3 mL LV Diastolic Volume Index (BP) (test code = 3133718995) 50.1 mL/m2 LV Systolic Volume Index (BP) (test code = 3701875531) 20.0 mL/m2 Radiology Study observation (narrative) (test code = 04632-5) ALDO (test code = ALDO) ?Left?Ventricle: Left [...] were obtained. Lumason ultrasound enhancing agent used. [facility] GLUCOSE (AUTOMATED)2022-07-12 18:54:46* Test Item Value Reference Range Interpretation Comme nts POCT GLU (test code = 6751519950) 146 mg/dL 70-110 H Lab Interpretation (test cod e = 36405-2) Abnormal [facility] GLUCOSE (AUTOMATED)2022-07-12 18:54:46* Test Item Value Reference Range Interpretation Comme nts POCT GLU (test code = 0122619765) 146 mg/dL 70-110 H Lab Interpretation (test cod e = 88466-1) Abnormal [facility] GLUCOSE (AUTOMATED)2022-07-12 15:00:17* Test Item Value Reference Range Interpretation Comme nts POCT GLU (test code = 3112961880) 132 mg/dL 70-110 H Lab Interpretation (test cod e = 98613-8) Abnormal [facility] GLUCOSE (AUTOMATED)2022-07-12 15:00:17* Test Item Value Reference Range Interpretation Comme nts POCT GLU (test code = 9264480540) 132 mg/dL 70-110 H Lab Interpretation (test cod e = 44245-6) Abnormal [facility] GLUCOSE (AUTOMATED)2022-07-12 03:47:57* Test Item Value Reference Range Interpretation Comme nts POCT GLU (test code = 9086116040) 173 mg/dL 70-110 H Lab Interpretation (test cod e = 19200-3) Abnormal [facility] GLUCOSE (AUTOMATED)2022-07-12 03:47:57* Test Item Value Reference Range Interpretation Comme nts POCT GLU (test code = 2392870128) 173 mg/dL 70-110 H Lab Interpretation (test cod e = 58862-0) Abnormal [facility] GLUCOSE (AUTOMATED)2022-07-12 00:11:45* Test Item Value Reference Range Interpretation Comme nts POCT GLU (test code = 7080395791) 236 mg/dL 70-110 H Lab Interpretation (test cod e = 09535-5) Abnormal [facility] GLUCOSE (AUTOMATED)2022-07-12 00:11:45* Test Item Value Reference Range Interpretation Comme nts POCT GLU (test code = 5796512802) 236 mg/dL 70-110 H Lab Interpretation (test cod e = 75575-6) Abnormal [facility] GLUCOSE (AUTOMATED)2022-07-11 22:59:10* Test Item Value Reference Range Interpretation Comme nts POCT GLU (test code = 0692207406) 195 mg/dL 70-110 H Lab Interpretation (test cod e = 91873-8) Abnormal [facility] GLUCOSE (AUTOMATED)2022-07-11 22:59:10* Test Item Value Reference Range Interpretation Comme nts POCT GLU (test code = 4128444839) 195 mg/dL 70-110 H Lab Interpretation (test cod e = 36522-9) Abnormal [facility]. METABOLIC PANEL (64398)2022-07-07 17:52:04* Test Item Value Reference Range Interpretation Comme nts NA (test code = 4644228418) 143 mmol/L 135-145 K (test code = 6507143438) 5.2 mmol/L 3.5-5.0 H CL (test code = 0703322995) 107 mmol/L 98-108 CO2 TOTAL (test code = 2651241013) 27 mmol/L 23-31 AGAP (test code = 3776002306) 2-16 BUN (test code = 2917494487) 28 mg/dL 7-23 H GLUCOSE (test code = 5598606732) 104 mg/dL 70-110 CREATININE (test code = 6089690877) 1.00 mg/dL 0.50-1.04 TOTAL BILI (test code = 2336037223) 1.2 mg/dL 0.1-1.1 H CALCIUM (test code = 1844220142) 8.9 mg/dL 8.6-10.6 T PROTEIN (test code = 8950263545) 6.9 g/dL 6.3-8.2 ALBUMIN (test code = 5345465819) 4.4 g/dL 3.5-5.0 ALK PHOS (test code = 5577758240) 72 U/L 34-122 ALTv (test code = 1742-6) 17 U/L 5-35 AST(SGOT) (test code = 8927262209) 27 U/L 13-40 eGFR (test code = 1625636634) mL/min/1.73m2 ALDO (test code = ALDO) Association [...] imaging tests). Lab Interpretation (test code = 50087-0) [id number] 17:46:24* Test Item Value Reference Range Interpretation Comme nts NT-proBNP (test code = 1274940339) 664 pg/mL See_Comment H [Automated message] The system which generated this result transmitted reference range: <=450. The reference range was not used to interpret this result as normal/abnormal. ALDO (test code = ALDO) Biotin has been reported to cause a negative bias, interpret results relative to patient's use of biotin. Lab Interpretation (test code = 71340-5) [facility]normal [facility] 17:30:45* Test Item Value Reference Range Interpretation Comme [facility] APTT Patient (test code = 3173-2) See_Comment [Automated message] The system which generated this result transmitted reference range: 23 - 38 Seconds. The reference range was not used to interpret this result as normal/abnormal. ALDO (test code = ALDO) The [facility] patient population mean normal value for aPTT is 30 seconds. Lab Interpretation (test code = 01846-7) Normal [facility] / [id number] 17:28:43* Test Item Value Reference Range Interpretation Comme [facility] PROTIME PATIENT (test code = 5964-2) See_Comment [Automated 800razorsa ge] The system which generated this result transmitted reference range: 12.0 - 14.7 Seconds. The reference range was not used to interpret this result as normal/abnormal. INR (test code = 6301-6) Normal INR <1.1; Warfarin Therapeutic range 2.0 to 3.0 or 2.5 to 3.5, depending upon the indications. Lab Interpretation (test code = 80820-9) Normal [facility] [id number] 16:11:35* Test Item Value Reference Range Interpretation Comme [facility] WBC (test code = 6690-2) See_Comment [Automated 800razorsa ge] The system which generated this result [...] g/dL 31.6-35.1 L RDW-SD (test code = 91906-0) 48.5 fL 39.0-49.9 RDW-CV (test code = 788-0) 14.6 % 12.0-15.5 PLT (test code = 777-3) See_Comment [Automated 800razorsa ge] The system which generated this result transmitted reference range: 166 - 358 10*3/?L. The reference range was not used to interpret this result as normal/abnormal. MPV (test code = 31675-2) 9.6 fL 9.5-12.9 NRBC/100 WBC (test code = 8898528203) See_Comment [Automated [employer] ssage] The system which generated this result transmitted reference range: 0.0 - 10.0 /100 WBCs. The reference range was not used to interpret this result as normal/abnormal. NRBC x10^3 (test code = 0312097425) See_Comment [Automated 800razorsa ge] The system which generated this result transmitted reference range: 10*3/?L. The reference range was not used to interpret this result as normal/abnormal. GRAN MAT (NEUT) % (test code = 770-8) 72.8 % IMM GRAN % (test code = 6535013045) 0.30 % LYMPH % (test code = 736-9) 17.4 % MONO % (test code = 5905-5) 6.8 % EOS % (test code = 713-8) 1.8 % BASO % (test code = 706-2) 0.9 % GRAN MAT x10^3(ANC) (test code = 6384238711) 5.65 10*3/uL 1.88-7.09 IMM GRAN x10^3 (test code = 0433860025) 0.00-0.06 LYMPH x10^3 (test code = 731-0) 1.35 10*3/uL 1.32-3.29 MONO x10^3 (test code = 742-7) 0.53 10*3/uL 0.33-0.92 EOS x10^3 (test code = 711-2) 0.14 10*3/uL 0.03-0.39 BASO x10^3 (test code = 704-7) 0.07 10*3/uL 0.01-0.07 Lab Interpretation (test code = 49856-3) Abnormal [facility] History and Physical Notes Date/Time Note Provider [...] discharged home then followed up with her etl architect Naomy Bravo MD who ultimately put in [...] Normal systolic function. No valvular pathology noted. [facility] 04/06/23 Coronary dominance: left Left main: Patent LM stent LAD: Large. 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 Distal QUILL PICKING MACHINE OPERATOR. Distal vessel is supplied by R==>L collaterals SVG to OM: Known to be occluded. LVEDP: 7 mmHg Impression: Severe [place] disease Patent MCBRIDE to LAD Severe pLCx [...] note for additional details. Fuad Soliz MD Stores Assistant Division of Cardiology [facility] Procedure Notes Date/Time Note Provider Source 2023-04-06 11:54:00 Procedure(s): BYRD RY ANGIOGRAPHY; LEFT HEART CATH; IVUS; PERCUTANEOUS TRANSLUMINAL CORONARY ANGIOPLASTY Pre-Procedure Diagnose(s): Coronary artery disease of [place] artery of [place] heart with stable angina pectoris Post-Procedure Diagnose(s): Coronary artery disease of [place] artery of [place] heart with stable angina pectoris Left Heart Cath/Coronary Angiography Date of Service: 04/06/2023 11:55 AM Fellow: Drs. Ayon and Mustapha Faculty: [facility] Indication/Diagnosis: Stable Angina Consent source: self Consent type: indications/complications discussed with patient/legal guardian; written consent obtained Time out completed: yes Aseptic technique: Chlorprep Local Anesthesia: 1% lidocaine without epinephrine Sedation: fentanyl 25 mcg, Versed 1 mg Access site: right femoral artery Closure Method: Angio-Seal Sterile dressing: yes Complications: none Findings: Coronary dominance: left Left main: Patent LM stent LAD: Large. 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 Distal QUILL PICKING MACHINE OPERATOR. Distal vessel is supplied by R==>L collaterals [...] recovering from sedation. Complications: None Impression: Severe [place] disease Patent MCBRIDE to LAD Severe pLCx [...] recur, LM-LCx lithotripsy will be considered +/- PTCA/WARE FINISHER of p-mRCA Findings and plan discussed with patient and family Naga Lakhani M.D. Interventional Cardiology Pager: [phone] IM-INTERVENTIONAL CARDIOLOGY STAFF [facility] Notes Date/Time Note Provider Source 2024-10-17 09:30:00 Addended by: NAOMY BRAVO on: 10/17/2024 10:13 AM Modules accepted: Orders [facility] 2024-10-13 13:15:41 Images from the original note were not included. Name from pharmacy: ISOSORBIDE MONONITRATE 120MG ER TAB Will file in chart as: ISOSORBIDE MONONITRATE 120 mg 24 hr tablet Sig: TAKE 1 TABLET BY MOUTH IN THE MORNING Disp: 30 tablet Refills: 1 (Pharmacy requested: Not specified) Start: 10/12/2024 Class: eRX For: Chest pain, unspecified type Last ordered: 5 months ago (05/07/2024) by Naomy Bravo MD Last refill: 10/12/2024 Rx #: [id number]|1|0|1 Cardiovascular: Nitrates Zovefx6210/12/2024 04:35 PM Protocol Details Valid encounter within last 12 months To be filled at: [id number] - [place], [place] - [address] [facility] & [address] Per RIN 06/13/24 HTN: Better controlled after increasing the antianginal medication. Advised to continue Toprol-XL 50 twice daily, amlodipine 10 mg daily, Imdur 120 daily lisinopril 20 daily, amlodipine 10 mg daily, lisinopril 10 mg twice daily Requested Prescriptions Signed Prescriptions Disp Refills isosorbide mononitrate 120 mg 24 hr tablet 30 tablet 5 Sig: TAKE 1 TABLET BY MOUTH IN THE MORNING Authorizing Provider: NAOMY BRAVO Ordering User: KAYA LAMAS Kaya Lamas RN [facility] 2024-09-02 09:53:53 notified pts daughter of referral. Referral and information faxed to Dr. Miller office. GUITAR TEACHER Piedad Kelly RN [facility] 2024-09-01 22:28:44 Addended by: NAOMY BRAVO on: 09/01/2024 10:28 PM Modules accepted: Orders [facility] 2024-09-01 22:27:46 Referral for hematology made. Please ask her to follow-up with dermatology in [place] locally. Please ask her to continue the current dose of Eliquis until seen by hematology. Please fax the last office note and also the recent venous Doppler study along with hematology referral. [facility] 2024-09-01 09:16:56 Images from the original note were not included. Called to inform patient of results and recommendations as detailed below. Spoke with patient's daughter, Catie. She verbalized understanding and stated the patient has not established care with hematology. Requesting a referral to hematology. Naomy Bravo MD P Cardiology Nurse No evidence of internal jugular vein or LEFT upper extremity deep venous thrombosis Please verify with the patient if she has established care with hematology. GUITAR TEACHER Kaya Lamas RN [facility] 2024-08-29 09:00:00 No evidence of internal jugular vein or LEFT upper extremity deep venous thrombosis Please verify with the patient if she has established care with hematology. [facility] 2024-08-15 16:27:[address] Bravo 06/13/24 GUITAR TEACHER Charmaine Figueroa RN [facility] 2024-08-15 00:07:40 Pt given printed and verbal discharge instructions regarding atypical chest pain, encouraged hydration, Pt verbalized understanding of instructions, pt awake alert oriented, resp reg unlabored, skin w/d, color appropriate for race, moves all ext well,pt encouraged to follow up with pcp Advised to seek medical attention for new/prolonged/worsening of symptoms No adverse reaction to meds given in ER noted upon discharge PIV d'cd, dressing to site, catheter in tact. Awake, alert oriented, resp reg unlabored, skin w/d, pt leaving ambulatory without assist, in no apparent distress, ANNA Wheeler RN [facility] 2024-08-14 22:55:41 Nurse Report Report given to ALEC Estrada. Chief complaint, assessment findings, infusion verify and orders reviewed. Plan of care discussed at bedside with patient and both nurses. Patient/family members verbalized understanding. PINA PEREZ RN GUITAR TEACHER Pina Perez RN [facility] 2024-08-14 22:02:50 Pt states that chest pain started around 9 pm today. 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 GUITAR TEACHER Natalie Foley RN [facility] 2024-06-17 09:25:24 Notified pt of physician recommendations to keep vascular testing ordered by Dr. Thorpe as scheduled. Daughter verbalized understanding. GUITAR TEACHER Piedad Kelly RN [facility] 2024-06-16 21:28:48 Images from the original note were not included. Chart reviewed. The vascular testing orders were placed by Dr. Thorpe. She has an appointment with Dr. Thorpe after the completion of the lower extremity Doppler in June. Would recommend getting the testing done as recommended by the vascular surgery team. [facility] 2024-06-16 09:31:54 Pt would like to reschedule her low ext art doppler from June to August. This way all testing can be done the same day. Will forward to Dr. Bravo to request new order for lower ext arterial doppler since this one will . GUITAR TEACHER Piedad Kelly RN [facility] 2024-06-15 13:23:36 Outside ultrasound report dated 05/22/2024 reviewed. 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 Please ask her to schedule the repeat venous ultrasound upper extremity in around 3 months for first week of August. Orders placed. In the interim currently she is on Eliquis 5 mg twice daily. Hence please ask her to stop the aspirin 81 daily and ask her to continue only Plavix/Eliquis combination for now to cut down the bleeding risk. Please reschedule the follow-up appointment after the August ultrasound appointment is complete. GUITAR TEACHER [facility] 2024-06-13 14:58:26 Results of scan from [facility] ER and notification that pt was prescribed eliquis 5mg. Pt was prescribed to take this twice daily, but daughter says she has only been taking it once daily. Will forward to Dr. Bravo for review. GUITAR TEACHER Piedad Kelly RN [facility] 2024-05-23 16:38:08 Looks like patient was went to [place] ER. No records available in [facility]. If the patient has DVT, agree with starting Eliquis. Would recommend following up with hematology to see why he developed a DVT. [facility] 2024-05-10 13:25:22 Patient given printed and verbal [...] steady gait, in no apparent distress. Pina Perez RN [facility] 2024-05-10 10:51:26 Patient to ED for left sided chest pain that got worse at 7am. Pain does not radiate. Pain started yesterday. 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 METABOLIC PANEL (71429) - Abnormal NA 137 135 - 145 [...] VW CBC WITH DIFF COMP. METABOLIC PANEL (23627) TROPONIN I N-TERMINAL PRO-BNP Magnesium TROPONIN I [...] ED Physician in the absence of a etl architect: yes Interpretation: Interpretation: normal Rate: ECG rate: [...] discharge home with outpatient follow-up with her etl architect. Problems Addressed: Chest pain, unspecified type: acute [...] Strickland Specialty: FAMILY MEDICINE Relationship: PCP - [facility] [address] [facility] [phone] Electronically signed by: Micaela Howard DO 05/10/24 1318 [facility] 2024-05-08 14:54:10 Medication refills given. Notified appointment needed before more refills approved. Kathy Santacruz LVN 05/08/2024 2:55 PM Kathy Santacruz LVN [facility] 2024-01-22 10:42:50 Access Center: [facility] Open Encounter Maintenance Chart Review: Patient had procedure on 12/28/2023. Nurse Note: RN closing encounter in [facility] r/t clinical action items completed. Catrachita Montero RN [facility] Access Center Triage Nurse Catrachita Montero RN [facility] 2023-12-31 08:17:54 Images from the original note were not included. Requested Prescriptions Pending Prescriptions Disp Refills isosorbide mononitrate 120 mg 24 hr tablet 30 tablet 3 Sig: Take 1 tablet by mouth in the morning. Patient compliant with refill guidelines. Cardiovascular: Nitrates Jvdbwc4412/30/2023 01:51 PM Protocol Details Valid encounter within last 12 months Charmaine Figueroa RN [facility] 2023-12-25 13:27:06 12/26/23- NO SURGICAL CONSENT PRESENT CURRENTLY.Tana STARR RN Mine Starr RN [facility] 2023-12-24 14:13:22 Patient is scheduled for a procedure on 12/27, she needs to know which medication to stop taking, Please assist, contact patients daughter to let her know which medication, [phone] Evelyn Yanes [facility] 2023-11-12 11:48:04 Images from the original note were not included. Notified patient's daughter Rukhsana per Dr Bravo: Naomy Bravo MD P Cardiology Nurse BNP acceptable. BMP within acceptable limits except mildly elevated Cr. Mag Normal Continue with current meds with no changes. Rpt BMP alone after adequate hydration in 2 weeks. Verbal understanding. BMP orders placed. T [facility] 2023-11-09 12:30:00 Images from the original note were not included. Venipuncture collection performed by clean technique on the left anticubitus. Total of 1 attempts were made. Slight pressure and a bandage/dressing were applied to the site(s). The patient experienced no complications. The following specimens were processed according to instructions and sent to [facility] laboratories per lab order on 11/09/2023 : LT BLUE SST 1 RED LAV PPT DK GREEN (LiHep) DK GREEN (SodH) AVINA DK BLUE (K2) DK BLUE (S) ACD Blood Culture NIPT/NTD T [facility] 2023-11-09 12:30:00 BNP acceptable. BMP within acceptable limits except mildly elevated Cr. Mag Normal Continue with current meds with no changes. Rpt BMP alone after adequate hydration in 2 weeks. [facility] 2023-11-09 12:30:00 Addended by: NAOMY BRAVO on: 11/14/2023 05:31 PM Modules accepted: Orders T [facility] 2023-11-05 15:58:59 Patient's daughter notified of Dr. Bravo's recommendations. She said that she will take her mom to have labs done on Sunday when she comes for her CT scan. She will send the BP log this evening. Charmaine Figueroa RN [facility] 2023-11-04 19:11:30 Recommended BMP/BNP to be done to assess leg swelling. Please ask her to send us the blood pressure log also. [facility] 2023-10-26 16:49:53 Spoke with daughter and appt scheduled for Sunday for evaluation. Scarlett Hopper LVN [facility] 2023-10-25 09:45:50 Spoke with patient's daughter. She [...] as well for advice. Charmaine Figueroa RN [facility] 2023-09-19 12:48:33 Spoke with patient's daughter, arrival time was given at 6:15AM. GUITAR TEACHER Jayden Mchugh RN [facility] 2023-09-18 14:30:04 Instructions were given, however, we still need a time for procedure. Will f/u with time. GUITAR TEACHER Aminta Chaney RN [facility] [facility] [place] 2023-09-18 14:22:48 [facility] EP LAB PRE-CALL INSTRUCTIONS EP [...] Hospital Garage via [address] from either [address] or [address]. Bring your parking ticket with you to be validated, only one parking ticket may be validated per patient. There may be a possibility of hospital admission or late evening discharge; therefore, bring leisure reading and an overnight bag. On the day of your procedure, come directly to the Electrophysiology Lab meat specialist desk, located on the 6th floor of [facility] ([phone].) You will be escorted to the Cardiac [...] read and verbalizes understanding of teaching provided. [facility] 2023-09-14 16:06:57 [facility] EP LAB PRE-CALL INSTRUCTIONS EP [...] Hospital Garage via [address] from either [employer] or [employer]. Bring your parking ticket with you to be validated, only one parking ticket may be validated per patient. There may be a possibility of hospital admission or late evening discharge; therefore, bring leisure reading and an overnight bag. On the day of your procedure, come directly to the Electrophysiology Lab meat specialist desk, located on the 6th floor of [facility] ([phone]- [phone].) You will be escorted to the Cardiac [...] read and verbalizes understanding of teaching provided. [facility] 2023-09-10 08:50:17 Lab orders in. [facility] 2023-09-10 08:42:[address] Jones for pre op lab orders. [facility] 2023-09-10 08:30:00 Images from the original note were not included. Venipuncture collection performed by clean technique on the left anticubitus. Total of 1 attempts were made. Slight pressure and a bandage/dressing were applied to the site(s). The patient experienced no complications. The following specimens were processed according to instructions and sent to [facility] laboratories per lab order on 09/10/2023 : LT BLUE 1 SST 1 RED LAV 1 PPT DK GREEN (LiHep) DK GREEN (SodH) AVINA DK BLUE (K2) DK BLUE (S) ACD Blood Culture NIPT/NTD [facility] 2023-08-24 08:49:43 Spoke with patients daughter and appt. For next week given. Verbalized understanding and agreed. [facility] Antonia Savage LVN [facility] [place] 2023-08-24 08:45:58 Justin Parekh is a 78 year old female Patient EC returning call Please call at [phone] Warm transferred to clinic nurse ANNA Stallings [facility] 2023-08-24 08:43:29 Tried to return call, message left. [facility] 2023-08-24 07:40:42 Electrograms reviewed, consistent with sinus pauses. Please schedule patient for EP follow up in my clinic next week. OK to overbook. Thank You, Robert Sykes MD [facility] IM-CLINICAL CARDIAC ELECTROPHYSIOLOGY STAFF [facility] 2023-08-23 16:15:30 Images from the original note were not included. Multiple pauses seen on ILR. Spoke to pt's daughter and she has been getting dizzy spells and per daughter her legs are swollen. Next EPMD appt [facility] is in 05/15. EMS/ED precautions given and daughter stated will call Provider today. She is amenable to come in earlier for EP appt. Will notify EPMD. [facility] Arsenio Rubio RN [facility] 2023-07-16 17:47:49 Addended by: NAOMY BRAVO on: 07/16/2023 05:47 PM Modules accepted: Orders [facility] 2023-07-16 17:47:26 Prescription refills sent today. [facility] 2023-07-13 13:23:42 Received refill request [...] Dept 06/29/23 Office Visit Naomy Bravo MD [facility] Cardiology Faculty 05/17/23 Office Visit Stephanie Sykes MD [facility] Cardiology Faculty 05/07/23 Office Visit Naga Lakhani MD [facility] Cardiology Faculty 04/20/23 Office Visit Naomy Bravo MD [facility] Cardiology Faculty 03/07/23 Office Visit Naomy Bravo MD [facility] Cardiology Faculty 11/16/22 Office Visit Brandon Arias MD [facility] Cardiology [facility] 10/13/22 Office Visit Naomy Bravo MD [facility] Cardiology Faculty 08/24/22 Office Visit Naomy Bravo MD [facility] Cardiology Faculty Showing recent visits within past 365 days and meeting all other requirements Future Appointments Date Type Provider Dept 11/02/23 Appointment [address] MD [facility] Cardiology Faculty 11/05/23 Appointment Naga Lakhani MD [...] Dept 06/29/23 Office Visit Naomy Bravo MD [facility] Cardiology Faculty 05/17/23 Office Visit Stephanie Sykes MD [facility] Cardiology Faculty 05/07/23 Office Visit Naga Lakhani MD [facility] Cardiology Faculty 04/20/23 Office Visit Naomy Bravo MD [facility] 03/07/23 Office Visit Naomy Bravo MD [facility] Cardiology Faculty 11/16/22 Office Visit Brandon Arias MD [facility] Cardiology [facility] 10/13/22 Office Visit Naomy Bravo MD [facility] Cardiology Faculty 08/24/22 Office Visit Naomy Bravo MD [facility] Cardiology Faculty Showing recent visits within past 365 days and meeting all other requirements Future Appointments Date Type Provider Dept 11/02/23 Appointment [address]omy B[address] MD [facility] Cardiology Faculty 11/05/23 Appointment Naga Lak[address] MD [facility] Cardiology Faculty 05/15/24 Appointment Stephanie Sykes MD [facility] Cardiology Faculty Showing future appointments within next 365 days and meeting all other requirements Refilled approval sent to: Pharmacy: [id number] - [address] AT [facility] & [place] [address] [id number] Refilled based on current protocol and last office visit note. Deloris Carroll 07/13/2023 1:24 supervisor inspecting Visit on 06/29/2023 Component Date Value WBC [...] 05/19/2023 2.0 POCT GLU 05/19/2023 123 (H) GUITAR TEACHER Deloris Lion Carroll [facility] 2023-04-10 17:17:08 Formatting of this n ote might be different from the original. Problem: Glucose control Goal: Glucose level within specified parameters 04/10/2023 171 by Susan Zelaya RN Outcome: Adequate for discharge 04/10/2023 1711 by Susan Zelaya RN Outcome: Progressing as expected 04/10/2023 1239 by Susan Zelaya RN Outcome: Progressing as expected Problem: Cardiac Output - Decreased Goal: Cardiac output within specified parameters 04/10/2023 171 by Susan Zelaya RN Outcome: Adequate for discharge 04/10/2023 171 by Susan Zelaya RN Outcome: Progressing as expected 04/10/2023 1239 by Susan Zelaya RN Outcome: Progressing as expected Goal: Absence of signs and symptoms of decreased cardiac output 04/10/2023 171 by Susan Zelaya RN Outcome: Adequate for [...] expected Goal: Absence of active bleeding 04/10/2023 171 by Susan Zelaya RN Outcome: Adequate for discharge 04/10/2023 1711 by Susan Zelaya RN Outcome: Progressing as expected 04/10/2023 1239 by Susan Zelaya RN Outcome: Progressing as expected Susan Zelaya RN [facility] 2023-04-10 17:11:47 Formatting of this n ote [...] Progressing as expected 04/10/2023 1239 by Susan Zleaya RN Outcome: Progressing as expected Goal: Absence [...] as expected Goal: Absence of active bleeding 04/10/20231710 by Susan Zelaya RN Outcome: Progressing as expected 04/10/2023 1239 by Susan Zelaya RN Outcome: Progressing as expected T [facility] 2023-04-10 12:39:10 Formatting of this n ote [...] of active bleeding Outcome: Progressing as expected [facility] 2023-04-10 06:37:11 Formatting of this n ote might be different from the original. Problem: Glucose control Goal: Glucose level within specified parameters Outcome: Progressing as expected Adrián Rosales RN [facility] 2023-04-07 14:33:39 Formatting of this n ote might be different from the original. Problem: Discharge Planning Goal: Adequate for discharge Outcome: Adequate for discharge Goal: Effective communication Outcome: Adequate for discharge Problem: Falls, Risk of Goal: Absence of falls Outcome: Adequate for discharge Problem: Procedure Routine Goal: Absence of post-procedure complications Outcome: Adequate for discharge Goal: Knowledge of procedure Outcome: Adequate for discharge [facility] 2023-04-07 04:07:50 Formatting of this n ote [...] Outcome: Progressing as expected Donn Bernard RN [facility] 2023-04-06 16:23:19 Formatting of this n ote [...] Knowledge of procedure Outcome: Progressing as expected [facility] 2023-04-04 11:11:51 Formatting of this n ote might be different from the original. [facility] CARDIAC CATH PRE-CALL INSTRUCTIONS Cardiac [...] Hospital Garage via [address] from either [employer] (Inspect Manager)[facility] [address] or [address]. Bring your parking ticket with you to be validated, only one parking ticket may be validated per patient. There may be a possibility of hospital admission or late evening discharge; therefore, bring leisure reading and an overnight bag. On the day of your procedure, come directly to the Cardiac Retail Merchandising Specialist meat specialist desk, located on the 6th floor of [facility] ([phone].) You will be escorted to the Cardiac Cath recovery room. Please call the Cardiac Retail Merchandising Specialist at if you have any questions regarding [...] understanding of teaching provided. Susan Fitch RN [facility] 2023-04-01 17:18:47 Formatting of this n ote [...] at 2.0, CBC within acceptable stable limits. [facility] 2023-03-30 10:15:00 Formatting of this n ote is different from the original. Images from the original note were not included. Venipuncture collection performed by clean technique on the left anticubitus. Total of 1 attempts were made. Slight pressure and a bandage/dressing were applied to the site(s). The patient experienced no complications. The following specimens were processed according to instructions and sent to [facility] laboratories per lab order on 03/30/2023: LT BLUE SST 1 RED LAV 2 PPT DK GREEN (LiHep) DK GREEN (SodH) AVINA DK BLUE (K2) DK BLUE (S) ACD Blood Culture NIPT/NTD [facility] 2023-03-30 08:58:08 Formatting of this n ote [...] not in clinic today. Charmaine Figueroa RN [facility] 2023-03-14 13:13:46 Formatting of this n ote might be different from the original. Called patient to schedule Left Heart Cath, with Dr. Lakhani. Spoke to pts' daughter, Anthony. She agreed to 04/06, lab appt made for 03/30. Dari Coyle [facility] 2023-03-06 10:02:12 Formatting of this n ote [...] Bravo tomorrow at 10:30. Charmaine Figueroa RN [facility] 2023-03-06 08:59:03 Formatting of this n ote might be different from the original. Patient presented to the ER yesterday for chest pain. Troponins x2 were negative. I was called by the ER physician. There were no beds in [facility]. Hence due to negative troponins x2, patient [...] blood pressure is currently doing at home. [facility] 2023-03-06 02:33:27 Formatting of this n ote [...] in no apparent distress, Kathy Cortez RN [facility] 2023-03-05 22:54:00 Formatting of this n ote might be different from the original. Patient came in with complaints of left-sided chest pain that radiates to her left arm since 9PM. Edda Juárez RN [facility] 2023-02-12 14:28:13 Formatting of this n ote [...] noted. Accompanied by daughter. Yanely Peralta RN [facility] 2023-02-12 12:31:04 Formatting of this n ote might be different from the original. Patient to ED for pain to left foot after dropping a phone on it last Sunday. There is bruising and swelling. Patient is ambulatory. Jeff Nelson RN [facility] - [facility] 2023-02-12 12:22:00 Formatting of this n ote is different from the original. [facility] Emergency Department Note Patient Name: Justin Parekh Date of : 1945 78 year old female Treatment Room: [place] [address] Primary Care Physician: Cydney Strickland Patient Escorted [...] 07/02/2017 Surgeon: Mona Rondon MD; Location[facility] ENDOSCOPIC VEIN HARVEST (SHX) Left 07/02/2017 Surgeon: Mona Rondon MD; Location: [facility] EYE SURGERY Bilateral 2016 cataract removal Review [...] 02/12/23 1427 Mary Mejia DO 02/12/23 1427 T [facility]
[2024-11-26] MEDS ORDERED: NA CHLORIDE 0.9% 1,000 ML ONE (09:36)
[2024-11-26] MEDS ORDERED: ASPIRIN 81 MG CHEWABLE TABLET ONE (09:36)
[2024-11-26 09:55] LABS: Absolute Basophils 0.1 K/uL (0-0.5); Absolute Eosinophils 0.2 K/uL (0-0.5); Absolute Lymphocytes (CBC) 1.2 K/uL (0.7-4.9); Absolute Monocytes 0.4 K/uL (0.1-1.3); Absolute Neutrophil 4.3 K/uL (1.8-8.0); Hematocrit 37.6 % (36.0-45.0); Hemoglobin 12.7 g/dL (12.0-15.0); Lymphocytes % 19.2 % (15.3-44.8); MCH 30.4 pg (27.0-35.0); MCHC 33.7 g/dL (32.0-36.0); MCV 90.1 fL (80-100); MPV 7.7 fL (7.6-11.3); Monocytes % 6.6 % (3.3-12.3); Neutrophils % 70.2 % (41.7-73.7); Nucleated Red Blood Cells % 0.1 % (0-0); Platelets 217 thou/uL (152-406); RBC Red Blood Cell Count 4.17 M/uL (3.86-4.86); Red Cell Distribution Width 15.3 % (12.1-15.2)
[2024-11-26 10:00] LABS: PT Prothrombin Time 11.8 SECONDS (10-13.0); Protime INR 1.04
[2024-11-26 10:17] LABS: Albumin 3.4 g/dL (3.4-5.0); Anion Gap 11.4 mEq/L (5.0-15.0); Bilirubin Direct 0.2 mg/dL (0-0.2); Bilirubin Indirect, Calculated 0.7 mg/dL (0.2-0.8); Bilirubin Total 0.9 mg/dL (0.2-1.0); Globulin 3.5 g/dL (2.3-3.5); Magnesium 2.3 mg/dL (1.6-2.4); Potassium 4.4 mEq/L (3.5-5.1); Protein, Total 6.9 g/dL (6.4-8.2)
--- NOTE | 2024-11-26 10:48 | RAD REPORT ---
EXAMINATION: ONE VIEW CHEST XR CLINICAL INDICATION: Female, 79 years old.,PAIN TECHNIQUE: Frontal chest projection is submitted. Examination is limited by patient positioning and t echnique. COMPARISON: 05/22/2024 FINDINGS: The lungs are well inflated and clear. No pneumothorax or sizable effusion. The heart is normal in s ize. Mediastinal contours are unchanged with sequelae of median sternotomy, and left chest wall pacer present. IMPRESSION: No acute intrathoracic abnormalities.
--- NOTE | 2024-11-26 10:53 | RAD REPORT ---
EXAMINATION: XR LEFT SHOULDER CLINICAL INDICATION: Female, 79 years old. PAIN TECHNIQUE: Internal and external AP view radiograph of the left shoulder were obtained. COMPARISON: 05/22/2024 FINDINGS: No evidence of fracture or dislocation. Normal alignment. Moderate degenerative changes of the AC joint. Narrowing of the subacromial space with some cranial translation of the humeral head suggesting chronic underlying rotator cuff changes. No suspicious focal bone lesion. Soft tissues are unremarkable. IMPRESSION: No acute osseous abnormalities. Chronic findings as above.
--- NOTE | 2024-11-26 11:04 | ER ---
Nurse's Notes [facility] Name: Sherri Parekh Age: 79 yrs Sex: Female : 1945 Arrival Date: 11/26/2024 Time: 09:08 Bed 7 Private MD: Diagnosis: Adhesive capsulitis of left shoulder;Type 2 diabetes mellitus with hyperglycemia;Unspecified kidney failure Presentation: 11/26 09:26 Chief complaint: Worsening pain in left armpit x months. hb 09:27 Coronavirus screen: At this time, the client does not indicate any symptoms associated hb with coronavirus-19. Ebola Screen: No symptoms or risks identified at this time. Initial Sepsis Screen: Does the patient meet any 2 criteria? No. Patient's initial sepsis screen is negative. Does the patient have a suspected source of infection? No. Patient's initial sepsis screen is negative. Risk Assessment: Do you want to hurt yourself or someone else? Patient reports no desire to harm self or others. Onset of symptoms is unknown. 09:27 Method Of Arrival: Ambulatory hb 09:27 Acuity: OTTO 3 hb Historical: - Allergies: 09:28 No Known Allergies; hb - PMHx: 09:28 CAD; Diabetes - NIDDM; High Cholesterol; Hypertension; hb - PSHx: 09:28 Coronary artery bypass graft; Coronary Angioplasty; hb - Immunization history:: Adult Immunizations unknown. - Infectious Disease History:: Denies. - Family history:: not pertinent. - Social history:: Smoking status: Patient denies any tobacco usage or history of. Screenin:56 [facility] ED Fall Risk Assessment (Adult) History of falling in the last 3 months, ph including since admission No falls in past 3 months (0 pts) Confusion or Disorientation No (0 pts) Intoxicated or Sedated No (0 pts) Impaired Gait No (0 pts) Mobility Assist Device Used No (0 pt) Altered Elimination No (0 pt) Score/Fall Risk Level 0 - 2 = Low Risk Oriented to surroundings, Maintained a safe environment, Hourly rounding (assess needs \T\ fall precautionary measures) done. Abuse screen: Denies threats or abuse. Denies injuries from another. Nutritional screening: No deficits noted. Tuberculosis screening: No symptoms or risk factors identified. Assessment: 09:54 General: Appears in no apparent distress. comfortable, well groomed, Behavior is calm, ph cooperative, appropriate for age. Pain: Complains of pain in left axilla Pain radiates to anterior aspect of left shoulder. Neuro: Level of Consciousness is awake, alert, obeys commands, Oriented to person, place, time, situation. Cardiovascular: Capillary refill < 3 seconds in bilateral fingers Patient's skin is warm and dry. Respiratory: Airway is patent Respiratory effort is even, unlabored. Derm: Skin is pink, warm \T\ dry. Vital Signs: 09:27 BP 156 / 62; Pulse 66; Resp 18; Temp 98.1; Pulse Ox 100% on R/A; Weight 47.17 kg; hb Height 4 ft. 9 in. ; Pain 7/10; 09:57 BP 142 / 67; Pulse 62; Resp 18; Pulse Ox 100% on R/A; ph 11:05 BP 146 / 71; Pulse 60; Resp 18; Temp 98.2; Pulse Ox 97% ; jj7 09:27 Body Mass Index 22.51 (47.17 kg, 144.78 cm) hb 09:27 Pain Scale: Adult hb Vitals: 09:57 Cardiac Rhythm Assessment Paced. ph ED Course: 09:11 Patient arrived in ED. al6 09:15 Juventino Walden MD is Attending Physician. jacqueline 09:22 Mine Norwood RN is Primary Nurse. ph 09:27 Triage completed. hb 09:28 Arm band placed on. hb 09:55 Initial lab(s) drawn, by me, sent to lab. EKG done, by ED staff, reviewed by Juventino Walden MD. Inserted saline lock: 22 gauge in right antecubital area, using aseptic technique. Blood collected. Flushed with 10 mL NS. 09:56 Patient has correct armband on for positive identification. Bed in low position. Call ph light in reach. Side rails up X 1. Pulse ox on. NIBP on. Door closed. Noise minimized. Warm blanket given. Pillow given. 10:22 XRAY Chest (1 view) In Process Unspecified. EDMS 10:23 Shoulder Left (2 View) XRAY In Process Unspecified. EDMS 11:03 Donald Ivey MD is Referral Physician. jacqueline 11:03 Hung Chavez MD is Referral Physician. jacqueline 11:07 No provider procedures requiring assistance completed. IV discontinued, intact, jj7 bleeding controlled, No redness/swelling at site. Pressure dressing applied. Administered Medications: :58 Drug: NS 0.9% IV 1000 ml IV at 1000 ml once; to be given as a bolus over 60 minutes ph Route: IV; Rate: 1000 ml; Site: right antecubital; 11:18 Follow up: IV Status: Completed infusion jj7 :58 Drug: Aspirin PO Chewable Tablet 81 mg PO once Route: PO; ph 11:19 Follow up: Response: No adverse reaction jj7 Medication: 09:56 VIS not applicable for this client. ph Outcome: 11:03 Discharge ordered by . jacqueline 11:07 Discharged to home ambulatory, with family, rodney 11:07 Condition: good 11:07 Discharge instructions given to patient, family, Instructed on discharge instructions, follow up and referral plans. medication usage, Demonstrated understanding of instructions, follow-up care, medications, Prescriptions given X 1, 11:19 Patient left the ED. jj7 Signatures: Dispatcher [employer] EDMS Juventino Walden MD MD cha Hall, Patricia, RN RN [facility] HospitalJeannie RN William Bruce RN RN jjSamantha Waddell Corrections: (The following items were deleted from the chart) 09:58 09:57 BP 142 / 6; Pulse 62bpm; Resp 18bpm; Pulse Ox 100% RA; ph ph 11:16 11:14 BP 146 / 71; Pulse 60bpm; Resp 18bpm; Pulse Ox 97%; Temp 98.2F; jj7 jj7
--- NOTE | 2024-11-26 11:04 | EDPHYS ---
Physician Documentation [facility] Name: Sherri Parekh Age: 79 yrs Sex: Female : 1945 Arrival Date: 11/26/2024 Time: 09:08 Bed 7 Private MD: ED Physician Juventino Walden HPI: 11/26 10:10 This 79 yrs old Female presents to ER via Ambulatory with complaints of Arm jacqueline Pain - left. 10:10 The patient or guardian complains of decreased range of motion. The complaints affect jacqueline the anterior aspect of left shoulder and posterior aspect of left shoulder. Context: The problem was sustained at an unknown location. Onset: The symptoms/episode began/occurred 2 month(s) ago. Treatment prior to arrival includes: no previous treatment. Modifying factors: The symptoms are alleviated by remaining still, the symptoms are aggravated by movement. Associated signs and symptoms: The patient has no apparent associated signs or symptoms. Severity of symptoms: At their worst the symptoms were mild, in the emergency department the symptoms have resolved. The patient has not experienced similar symptoms in the past. Historical: - Allergies: :28 No Known Allergies; hb - PMHx: :28 CAD; Diabetes - NIDDM; High Cholesterol; Hypertension; hb - PSHx: :28 Coronary artery bypass graft; Coronary Angioplasty; hb - Immunization history:: Adult Immunizations unknown. - Infectious Disease History:: Denies. - Family history:: not pertinent. - Social history:: Smoking status: Patient denies any tobacco usage or history of. ROS: 10:10 Constitutional: Negative for fever, chills, and weight loss, Eyes: Negative for injury, jacqueline pain, redness, and discharge, ENT: Negative for injury, pain, and discharge, Neck: Negative for injury, pain, and swelling, Cardiovascular: Negative for chest pain, palpitations, and edema, Respiratory: Negative for shortness of breath, cough, wheezing, and pleuritic chest pain, Abdomen/GI: Negative for abdominal pain, nausea, vomiting, diarrhea, and constipation, Back: Negative for injury and pain, : Negative for injury, bleeding, discharge, and swelling, Skin: Negative for injury, rash, and discoloration, Neuro: Negative for headache, weakness, numbness, tingling, and seizure, Psych: Negative for depression, anxiety, suicide ideation, homicidal ideation, and hallucinations, Allergy/Immunology: Negative for hives, rash, and allergies, Endocrine: Negative for neck swelling, polydipsia, polyuria, polyphagia, and marked weight changes, 10:10 MS/extremity: Positive for injury or acute deformity, pain, of the anterior aspect of left shoulder and posterior aspect of left shoulder, Exam: 10:10 Constitutional: This is a well developed, well nourished patient who is awake, alert, jacqueline and in no acute distress. Head/Face: Normocephalic, atraumatic. Eyes: Pupils equal round and reactive to light, extra-ocular motions intact. Lids and lashes normal. Conjunctiva and sclera are non-icteric and not injected. Cornea within normal limits. Periorbital areas with no swelling, redness, or edema. ENT: Nares patent. No nasal discharge, no septal abnormalities noted. Tympanic membranes are normal and external auditory canals are clear. Oropharynx with no redness, swelling, or masses, exudates, or evidence of obstruction, uvula midline. Mucous membranes moist. Neck: Trachea midline, no thyromegaly or masses palpated, and no cervical lymphadenopathy. Supple, full range of motion without nuchal rigidity, or vertebral point tenderness. No Meningismus. Chest/axilla: Normal chest wall appearance and motion. Nontender with no deformity. No lesions are appreciated. Cardiovascular: Regular rate and rhythm with a normal S1 and S2. No gallops, murmurs, or rubs. Normal PMI, no JVD. No pulse deficits. Respiratory: Lungs have equal breath sounds bilaterally, clear to auscultation and percussion. No rales, rhonchi or wheezes noted. No increased work of breathing, no retractions or nasal flaring. Abdomen/GI: Soft, non-tender, with normal bowel sounds. No distension or tympany. No guarding or rebound. No evidence of tenderness throughout. Back: No spinal tenderness. No costovertebral tenderness. Full range of motion. Skin: Warm, dry with normal turgor. Normal color with no rashes, no lesions, and no evidence of cellulitis. Neuro: Awake and alert, GCS 15, oriented to person, place, time, and situation. Cranial nerves II-XII grossly intact. Motor strength 5/5 in all extremities. Sensory grossly intact. Cerebellar exam normal. Normal gait. Psych: Awake, alert, with orientation to person, place and time. Behavior, mood, and affect are within normal limits. 10:10 ECG was reviewed by the Attending Physician. 10:10 Musculoskeletal/extremity: ROM: limited active range of motion due to pain, limited passive range of motion due to pain, Pulses: are normal with no appreciated deficits, Sensation intact. Compartment Syndrome exam of affected extremity: is normal. Vital Signs: 09:27 BP 156 / 62; Pulse 66; Resp 18; Temp 98.1; Pulse Ox 100% on R/A; Weight 47.17 kg; hb Height 4 ft. 9 in. ; Pain 7/10; 09:57 BP 142 / 67; Pulse 62; Resp 18; Pulse Ox 100% on R/A; ph 11:05 BP 146 / 71; Pulse 60; Resp 18; Temp 98.2; Pulse Ox 97% ; jj7 09:27 Body Mass Index 22.51 (47.17 kg, 144.78 cm) hb 09:27 Pain Scale: Adult hb MDM: 09:15 Medical Screening Exam initiated jacqueline 10:15 Differential diagnosis: dislocation, open fracture, closed fracture, contusion, jacqueline abrasion, tendonitis. Data reviewed: vital signs, nurses notes, lab test result(s), EKG, radiologic studies, plain films. Consideration of Admission/Observation Escalation of care including admission/observation considered. I considered the following discharge prescriptions or medication management in the emergency department Medications were administered in the Emergency Department. See MAR. Independent interpretation of the following test(s) in the Emergency Department EKG: See my EKG interpretation above X-Ray: My interpretation is left shoulder. Historians other than the Patient: Law enforcement: pt well informed. Care significantly affected by the following chronic conditions: Diabetes, Hypertension, Obesity, high chlesterol. Counseling: I had a detailed discussion with the patient and/or guardian regarding the historical points, exam findings, and any diagnostic results supporting the discharge/admit diagnosis, lab results, radiology results, the need for outpatient follow up, a sales relationship manager, a family practitioner, a orthopedic surgeon. 11/26 09:20 Order name: Basic Metabolic Panel; Complete Time: 11:02 [facility] 11/26 09:20 Order name: CBC with Diff; Complete Time: 10:01 [facility] 11/26 09:20 Order name: LFT's; Complete Time: 11:02 [facility] 11/26 09:20 Order name: Magnesium; Complete Time: 11:02 [facility] 11/26 09:20 Order name: NT PRO-BNP; Complete Time: 11:02 [facility] 11/26 09:20 Order name: PT-INR; Complete Time: 10:01 [facility] 11/26 09:20 Order name: Troponin HS; Complete Time: 11:02 [facility] 11/26 09:20 Order name: XRAY Chest (1 view); Complete Time: 11: [facility] 11/26 10:01 Order name: Shoulder Left (2 View) XRAY; Complete Time: 11: [facility] 11/26 09:20 Order name: EKG; Complete Time: 09:21 [facility] 11/26 09:20 Order name: Cardiac monitoring; Complete Time: :58 [facility] 11/26 09:20 Order name: EKG - Nurse/Tech; Complete Time: :58 [facility] 11/26 09:20 Order name: IV Saline Lock; Complete Time: :58 [facility] 11/26 09:20 Order name: Labs collected and sent; Complete Time: :58 [facility] 11/26 09:20 Order name: O2 Per Protocol; Complete Time: :58 [facility] 11/26 09:20 Order name: O2 Sat Monitoring; Complete Time: :58 [facility] EC:10 Rate is 62 beats/min. Rhythm is regular. QRS [place] is Normal. TX interval is normal. QRS jacqueline interval is normal. QT interval is normal. No Q waves. T waves are Normal. No ST changes noted. Clinical impression: Abnormal EKG without significant change and No evidence of ischemia. Interpreted by me. Reviewed by me. Administered Medications: : Drug: NS 0.9% IV 1000 ml IV at 1000 ml once; to be given as a bolus over 60 minutes ph Route: IV; Rate: 1000 ml; Site: right antecubital; 11:18 Follow up: IV Status: Completed infusion jj7 09:58 Drug: Aspirin PO Chewable Tablet 81 mg PO once Route: PO; ph 11:19 Follow up: Response: No adverse reaction jj7 Disposition Summary: 11/26/24 11:03 Discharge Ordered Notes: Location: Home jacqueline Problem: new jacqueline Symptoms: have improved jacqueline Condition: Stable jacqueline Diagnosis - Adhesive capsulitis of left shoulder jacqueline - Type 2 diabetes mellitus with hyperglycemia jacqueline - Unspecified kidney failure jacqueline Followup: jacqueline - With: Private Physician - When: 2 - 3 days - Reason: Recheck today's complaints, Re-evaluation by your physician Followup: jacqueline - With: Donald Ivey MD - When: 2 - 3 days - Reason: Recheck today's complaints, Re-evaluation by your physician Followup: jacqueline - With: Hung Chavez MD - When: 2 - 3 days - Reason: Recheck today's complaints, Re-evaluation by your physician Discharge Instructions: - Discharge Summary Sheet jacqueline - Shoulder Range of Motion Exercises jacqueline - Blood Glucose Monitoring, Adult jacqueline - Diabetes Mellitus and Nutrition, Adult jacqueline - How to Use a Sling, [id number] jacqueline - Chronic Kidney Disease, Adult, [id number] jacqueline - Adhesive Capsulitis jacqueline - How to Use a Sling jacqueline Forms: - Medication Reconciliation Form jacqueline - Antibiotic Education jacqueline - Prescription Opioid Use jacqueline - Patient Portal Instructions jacqueline - Leadership Thank You Letter jacqueline Prescriptions: - diclofenac sodium 25 mg Oral tablet, delayed release (enteric coated) - take 1 tablet ORAL route 2 times per day; 14 tablet; Refills: 0, Product jacqueline Selection Permitted Signatures: Dispatcher [employer] Juventino Weinstein MD MD cha Hall, Patricia RN RN Jeannie Taylor, ALEC RN William Garner RN jj7
[2024-11-26 16:14] VITALS: BP 146/71; TEMP 98.2; O2SAT 97
--- NOTE | 2024-11-27 11:44 | EKG ---
Test Date: 2024-11-26 Test Time: 09:34:16 Heat Treating Operator: PH MEASUREMENT RESULTS: Intervals: Rate: 62 [place]: 158 QRSD: 72 QT: 412 QTc: 418 [place]: P: 13 [place]: 158 QRS: 62 T: 62 INTERPRETIVE STATEMENTS: Atrial-paced rhythm Abnormal ECG Compared to ECG 05/22/2024 23:26:13 Sinus rhythm no longer present Electronically Signed On 11-27-24 11:40:29 CDT by Horacio Rae
== END 2024-11-26 11:19 | disposition home or self-care (01) ==
LOC: ER 09:08
DX: M75.02 Adhesive capsulitis of left shoulder (principal); E11.65 Type 2 diabetes mellitus with hyperglycemia; N19 Unspecified kidney failure; I10 Essential (primary) hypertension; Z95.1 Presence of aortocoronary bypass graft
CPT/HCPCS: 85025; 80048; 36415; 83735; 85610; 80076; 84484; 83880; 71045; 73030; J7030; 93005

== ENCOUNTER 2024-12-11 11:45 | Emergency (ER) | payer OTHER ==
--- OUTSIDE RECORDS SUMMARY | 2024-12-11 12:00 | XMS REPORT | Continuity of Care Document ---
Author Name Unknown Address [address] [facility] [place] [address] [facility] [place] Address [address] [facility] [place] [address] Care Team Providers [employer] Manager Name Role Phone EM [facility] Roxy Primary Care Physician Unavailab corina Parra [facility] M Attending Clinician Unavailable MACRINA PAIGE Attending Clinician Unavailable LIANG THORPE Attending Clinician Unavailable LIANG THORPE Attending Clinician Unavailable NAOMY BRAVO K.HAviva Attending Clinician UnavailSTEPHANIE Kim Attending Clinician Unav STEPHANIE Helms Attending Clinician Unav MAT Bai Attending Clinician Unavailable LUCIANO TIPTON Attending Clinician Unav ailLUCIANO Coronado Attending Clinician Unav Luciano Cerna MD Attending Clinician + Stephanie Sykes MD Attending Clinician + Bambi Bravo MDil K.HAviva Attending Clinician + TIFFANI CHRISTIANSON Attending Clinician UnavailTIFFANI Mratinez Attending Clinician UnavailLiang Yusuf MD Attending Clinician [phone] ERNESTINE MILES Attending Clinician Unavailable ERNESTINE MILES Attending Clinician Unavailable Ernestine Miles NP Attending Clinician + VERITO BURNS Attending Clinician Unavailable Gilles MORA, Verito Attending Clinician +[phone] NAGA LAKHANI Attending Clinician Unavailable MICAELA HOWARD Attending Clinician Unavailab MICAELA Brantley Attending Clinician Unavailab Micaela Brantley DO Attending Clinician +[phone] Ozzy MORA, Naomy K.H. Attending Clinician + Pob, [facility] Main Attending Clinician UnavailNaga Johns MD Attending Clinician [phone] NILAM FLORES Attending Clinician Unavailable NILAM FLORES Attending Clinician Unavailable Doctor Unassigned, [place] Attending Clinician U navailable 2, [facility] Attending Clinician Unavailable Marly Hanley RN Attending Clinician Unavailab Noel Alcantar MD Attending Clinician +[phone] ABU-SHARHEBERH TARLUIS ALFREDO Attending Clinician Unavaila rosario POWERS, TARLUIS ALFREDO Attending Clinician Unavaila rosario Powers MD, Perla Attending Clinician +[phone] YVONNE HAZEL Attending C linician Unavailable Isaiah Zacarias MD Attending Clinician +[phone] Yvonne Hazel MDin g Clinician 1, [facility] Attending Clinician Unavailable Griffin Fernandes MD Attending Clinician + [phone] GRIFFIN FERNANDES Attending Clinician Unavailjosefina Healyssigned, Cath/Ep Attending Clinician Unavaila ROMEO Briggs Attending Clinician Unavailable Romeo Mendieta MD Attending Clinician +[phone] MARY MEJIA Attending Clinician Unavailab Mary Narvaez DO Attending Clinician [phone] BRANDON ARIAS Attending Clinician Unavailable Ivonne MORA, Brandon Attending Clinician +[phone] PARDEEP ACOSTA Attending Clinician Unavailable PARDEEP ACOSTA Attending Clinician Unavailable Devon Hatch MD Attending Clinician + [phone] Only, [facility] Test Attending Clinician Unavailable Argelia Mcdowell MD Attending Clinician +[phone] ARGELIA MCDOWELL Attending Clinician Unavailable WALTER GALLARDO Attending Clinician Unavailable Nicolas Franco MD Attending Clinician [phone] Walter Gallardo MD Attending Clinician [phone] Yanely Zaidi Attending Clinician +- [phone] RAE CANTOR Attending Clinician Unavail able Alexsander Jordan Attending Clinician +- [phone] ALEXSANDER FALCON Attending Clinician Unavailable Emilia Ortiz MD Attending Clinician [phone] EMILIA ORTIZ Attending Clinician Unavailabl YEYO Walker Attending Clinician Unavail able YEYO GODFREY Attending Clinician Unavail able Tech, [facility] Cardio Fac Attending Clinician Unavail able 2, [facility] Room Attending Clinician Unava ilable Pc, [facility] Vascular Room 1 - Attending Clinician Un available MACRINA PAIGE Admitting Clinician Unavailable LUCIANO TIPTON Admitting Clinician Unav ailable STEPHANIE SYKES Admitting Clinician Unav ailable NAOMY BRAVO K.HAviva Admitting Clinician Unavaila ERNESTINE Danielson Admitting Clinician Unavailable MICAELA HOWARD Admitting Clinician Unavailab LIANG Rey Admitting Clinician Unavailable NILAM FLORES Admitting Clinician Unavailable PERLA POWERS Admitting Clinician UnavailPerla Rojas MD Admitting Clinician + [phone] ISAIAH ZACARIAS Admitting Clinician Unavailable Isaiah Zacarias MD Admitting Clinician +[phone] ROMEO MENDIETA Admitting Clinician Unavailable MARY MEJIA Admitting Clinician Unavailab BRANDON Cedeno Admitting Clinician Unavailable Ivonne MORA, Brandon Admitting Clinician PARDEEP ACOSTA Admitting Clinician Unavailable Ozzy MORA, [facility].. Admitting Clinician [phone] WALTER GALLARDO Admitting Clinician Unavailable Walter Gallardo MD Admitting Clinician ALEXSANDER FALCON Admitting Clinician Unavailable Payers Payer Name Policy Type Policy Number Effective Date Expirati on Date Source [facility] PPO [id number] 2020 00:00:00 [facility] MEDICARE 53 [id number] 2020 00:00:[address] [facility] [employer] MEDICARE ERS [id number] 2016 00:00:00 Problems Condition Name Condition Details Condition Category Status Onset Date Resolution Date Last Treatment Date Treating Clinician Comments Source Urge incontinen ce of urine Urge Incontinen ce of Urine Problem Active 2023-07 0- 00:00: 00 [facility] Hyperglyce gopi due to type 2 [...] arterial disease Disease Active 5-13 00:00: 00 [facility] Sinus pause Sinus pause Disease Active 2-08 00:00: 00 [facility] Chest pain, unspecifie d type Chest pain, unspecifie d type Disease Active 9-19 00:00: 00 [facility] Bilateral carotid artery stenosis Bilateral carotid artery stenosis Disease Active 8-16 00:00: 00 [facility] MANJARREZ (dyspnea on exertion) MANJARREZ (dyspnea on exertion) Disease Active 8-16 00:00: 00 [facility] PAD (periphera l artery disease) PAD (periphera l artery disease) Disease Active 8-16 00:00: 00 [facility] H/O carotid endarterec ramona H/O carotid endarterec ramona Disease Active 8-16 00:00: 00 [facility] Pericardia l effusion Pericardia l effusion Disease Active 816 00:00: 00 [facility] Syncope, unspecifie d syncope type Syncope, unspecifie d syncope type Disease Active 8-16 00:00: 00 [facility] Chest pain, cardiac Chest pain, cardiac Disease Active 816 00:00: 00 [facility] 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 Added automatic ally from request for surgery [id number] [facility] Abnormal nuclear stress test Abnormal nuclear stress test Disease Active - 00:00: 00 Overview: Formattin g of this note might be different from the original. Added automatic ally from request for surgery [id number] [facility] Atheroscle rosis of chilkoot artery of left lower extremity with intermitte nt claudicati on Atheroscle rosis of chilkoot artery of left lower extremity with intermitte nt claudicati on Disease Active 03-23 00:00: 00 Overview: Formattin g of this note might be different from the original. Added automatic ally from request for surgery [id number] [facility] Atheroscle rosis of chilkoot artery of left lower extremity with intermitte nt claudicati on Atheroscle rosis of chilkoot artery of left lower extremity with intermitte nt claudicati on Disease Active 03-23 00:00: 00 Overview: Formattin g of this note might be different from the original. Added automatic ally from request for surgery [id number] [facility] Left arm pain Left arm pain Disease Active 2020-07 00:00: 00 [facility] Left arm numbness Left arm numbness Disease Active 2020-07 00:00: 00 [facility] Dyslipidem ia Dyslipidem ia Disease Active 03-30 00:00: 00 [facility] Chronic diastolic heart failure Chronic diastolic heart failure Disease Active 03-30 00:00: 00 [facility] Family history of premature CAD Family history of premature CAD Disease Active 03-30 00:00: 00 [facility] Coronary artery disease involving coronary bypass graft of chilkoot heart without angina pectoris Coronary artery disease involving coronary bypass graft of chilkoot heart without angina pectoris Disease Active 03-30 00:00: 00 [facility] Atypical chest pain Atypical chest pain Disease Active 03-29 00:00: 00 [facility] Dyspnea on exertion Dyspnea on exertion Disease Active 09-13 00:00: 00 [facility] Amnesia Memory changes Problem [facility] [id number] Coronary artery disease involving chilkoot coronary artery of chilkoot heart, unspecifie d whether angina present Problem [facility] Type II diabetes mellitus uncontroll ed Diabetes type 2, uncontroll ed Problem [facility] [id number] PAD (periphera l artery disease) Problem [facility] [id number] Other chronic pain Problem [facility] Incontinen ce of urine Incontinen ce of urine Problem [facility] Essential hypertensi on Benign essential HTN Problem [facility] [id number] Occlusion and stenosis of unspecifie d carotid artery Problem [facility] History of coronary artery bypass grafting History of coronary artery bypass graft Problem [facility] [id number] Frequency- urgency syndrome Problem [facility] Mixed hyperlipid emia Hyperlipid emia, mixed Problem [facility] [id number] Iron deficiency anemia, unspecifie d iron deficiency anemia type Problem [facility] [id number] Stress incontinen ce Problem [facility] [id number] Bilateral carotid artery disease, unspecifie d type Problem [facility] [id number] Anemia, unspecifie d type Problem [facility] [id number] Melanotic stools Problem [facility] [id number] Duodenitis Problem Comm on [facility] [id number] +5th digit eff 04/22/20*GE RD with esophagiti s Problem [facility] [id number] GERD without esophagiti s Problem [facility] [id number] Type 2 diabetes mellitus with diabetic chronic kidney disease Problem [facility] [id number] Osteoporos is, unspecifie d osteoporos is type, unspecifie d pathologic al fracture presence Problem [facility] [id number] Cardiac pacemaker Problem [facility] [id number] Continuous urine leakage Problem [facility] Bladder spasm Bladder spasm Problem [facility] CHF (congestiv e heart failure) CHF (congestiv e heart failure) Disease Resolve d 2-22 00:00: 00 2018-03-30 00:00:00 2018-03-30 08:02:27 [facility] Pleural effusion Pleural effusion Disease Resolve d 2-03 00:00: 00 2018-03-30 00:00:00 2018-03-30 08:02:30 [facility] Allergies, Adverse Reactions, Alerts Allergy Name Allergy Type Status Severity Reaction(s) Onset Date Inactive Date Treating Clinician Comments Source NO KNOWN ALLERGIE S Drug Class Active [facility] Social History Social Habit Start Date Stop Date Quantity Comments Source History SDOH Social Connections Get Together [facility] History SDOH Social Connections [facility] History SDOH Social Connections Membership [facility] History SDOH Social Connections Meetings [facility] Gender identity [facility] ASSERTION Not Univers ity [facility] History of Occupation [facility] History of Tobacco Use [facility] Sex Assigned At [facility] Alcoholic beverage intake 2024-09-28 00:00:00 2024-09-28 00:00:00 Current non-drinker of alcohol (finding) [facility] History of Social function 2024-09-15 00:00:00 2024-09-15 00:00:00 [facility] Alcohol intake 2023-09-18 00:00:00 2023-09-18 00:00:00 Current non-drinker of alcohol (finding) [facility] Exposure to SARS-CoV-2 (event) 2022-12-09 00:00:00 2022-12-19 06:19:[address] [facility] History SDOH Alcohol Frequency 2022-07-12 00:00:00 2022-07-12 00:00:[address] [facility] History SDOH Alcohol Std Drinks 2022-07-12 00:00:00 2022-07-12 00:00:[address] [facility] History SDOH Alcohol Binge 2022-07-12 00:00:00 2022-07-12 00:00:[address] [facility] History SDOH Social Connections Phone 2022-07-12 00:00:00 2022-07-12 00:00:[address] [facility] History SDOH Social Connections Living 2022-07-12 00:00:00 2022-07-12 00:00:[address] [facility] History SDOH Physical Activity DPW 2022-07-12 00:00:00 2022-07-12 00:00:[address] [facility] History SDOH Physical Activity MPS 2022-07-12 00:00:00 2022-07-12 00:00:[address] [facility] History SDOH Financial 2022-07-12 00:00:00 2022-07-12 00:00:[address] [facility] History SDOH Food Worry 2022-07-12 00:00:00 2022-07-12 00:00:[address] [facility] History SDOH Food Scarcity 2022-07-12 00:00:00 2022-07-12 00:00:[address] [facility] History SDOH Transport Med 2022-07-12 00:00:00 2022-07-12 00:00:[address] [facility] History SDOH Transport Non-Med 2022-07-12 00:00:00 2022-07-12 00:00:[address] [facility] Education 2022-07-11 00:00:00 2022-07-11 00:00:[address] [facility] Tobacco use and exposure 2022-03-23 00:00:00 2022-03-23 00:00:00 Smokeless tobacco non-user [facility] Smoking Status Start Date Stop Date Source Never smoked tobacco [facility] Medications Ordered Medication Name Filled Medication Name Start Date Stop Date Current Medication? Ordering Clinician Indication Dosage Frequency Signature (SIG) Comments Components Source HYDROcodone -acetaminop hen (NORCO) 10-325 mg tablet 1 tablet 11-29 16:45: 00 11-29 16:31 :00 No 1{tbl} 1 tablet, Oral, ONCE NOW, 1 dose, On 11/29/24 at 1145, Routine [facility] traMADoL 50 mg tablet 11-29 00:00: 00 12-07 04:59 :00 Yes [id number] 50mg Take 1 tablet by mouth every 6 (six) hours as needed for Pain (scale 4-6) for up to 7 days. Indication s: acute pain [facility] lisinopriL 10 mg tablet 28 00:00: 00 Yes [id number] 10mg Take 1 tablet by mouth in the morning. [facility] isosorbide mononitrate 120 mg 24 hr tablet 24 00:00: 00 Yes [id number] 120mg TAKE 1 TABLET BY MOUTH IN THE MORNING [facility] ondansetron 4 mg tablet -09 00:00: 00 Yes [id number] 1 or 2 tablets every 8 hours as needed for nausea [facility] aspirin chewable tablet 324 mg 08-15 05:00: 00 08-15 04:22 :00 No [id number] 324mg 324 mg, Oral, ONCE, 1 dose, On Joanne 08/14/24 at 2300, Routine [facility] nitroglycer in 0.4 mg sublingual tablet 08-15 00:00: [id number] 1 tablet under the tongue every 5 (five) minutes as needed for Chest pain. [facility] MYRBETRIQ 50 mg tablet 08-07 00:00: 00 Yes 50mg 1 tablet. [facility] ELIQUIS DVT-PE TREAT 30D START 5 mg (74 tabs) 5 mg VTE starter pack 2023-07 00:00: 00 10-17 00:00 :00 No 5mg Take 1 tablet by mouth in the morning and 1 tablet in the evening. [facility] metoprolol succinate XL 50 mg 24 hr tablet 2023-07 00:00: 00 Yes [id number] 50mg Take 1 tablet by mouth in the morning and 1 tablet in the evening. [facility] clopidogrel 75 mg tablet Take 1 mg every day by oral route. clopidogrel 75 mg tablet Take 1 mg every day by oral route. 2023-07 00:00: 00 No 1mg Q1D clopidogre l 75 mg tablet Take 1 mg every day by oral route. [facility] isosorbide mononitrate 10 mg tablet Take 1 mg every day by oral route. isosorbide mononitrate 10 mg tablet Take 1 mg every day by oral route. 2023-07 00:00: 00 No 1mg Q1D isosorbide mononitrat e 10 mg tablet Take 1 mg every day by oral route. [facility] lisinopril 10 mg tablet Take 1 mg every day by oral route. lisinopril 10 mg tablet Take 1 mg every day by oral route. 2023-07 00:00: 00 No 1mg Q1D lisinopril 10 mg tablet Take 1 mg every day by oral route. [facility] metformin 500 mg tablet Take 2 mg twice a day by oral route. metformin 500 mg tablet Take 2 mg twice a day by oral route. 2023-07 00:00: 00 No 2mg BID metformin 500 mg tablet Take 2 mg twice a day by oral route. [facility] metoprolol succinate ER 50 mg tablet,exte nded release 24 hr Take 2 mg twice a day by oral route. metoprolol succinate ER 50 mg tablet,exte nded release 24 hr Take 2 mg twice a day by oral route. 2023-07 00:00: 00 No 2mg BID metoprolol succinate ER 50 mg tablet,ext ended release 24 hr Take 2 mg twice a day by oral route. [facility] rosuvastati n 20 mg tablet Take 1 mg every day by oral route. rosuvastati n 20 mg tablet Take 1 mg every day by oral route. 2023-07 00:00: 00 No 1mg Q1D rosuvastat in 20 mg tablet Take 1 mg every day by oral route. [facility] ketorolac (TORADOL) injection 15 mg 2023-07 18:15: 00 05-10 17:28 :00 No 15mg 15 mg, Slow IV Push, ONCE, 1 dose, On 05/10/24 at 1315, Routine [facility] famotidine (PEPCID (PF)) injection 20 mg 2023-07 17:30: 00 05-10 17:27 :00 No 20mg 20 mg, Slow IV Push, ONCE, 1 dose, On 05/10/24 at 1230, MARIELY [facility] aspirin chewable tablet 243 mg 2023-07 16:45: 00 05-10 16:08 :00 No 243mg 243 mg, Oral, ONCE, 1 dose, On 05/10/24 at 1145, Routine [facility] empaglifloz in (JARDIANCE) 10 mg tablet 2023-07 00:00: 00 Yes [id number] 10mg TAKE 1 TABLET BY MOUTH IN THE MORNING [facility] isosorbide mononitrate 120 mg 24 hr tablet 2023-07 00:00: 00 10-13 00:00 :00 No [id number] 120mg TAKE 1 TABLET BY MOUTH IN THE MORNING [facility] Fluconazole 150 MG Fluconazole 150 MG 04-18 00:00: 00 No 1{table t} Fluconazol e 150 MG Ketoconazol e 2 % Ketoconazol e 2 % 04-18 00:00: 00 No 1{appli cation} QD Ketoconazo le 2 % metFORMIN (GLUCOPHAGE ) 500 mg tablet 01-13 13:24: 32 Yes 1000mg Take 2 tablets by mouth in the morning and 2 tablets in the evening. Take with meals. [facility] rosuvastati n 20 mg tablet 01-13 13:24: 32 Yes 20mg Take 1 tablet by mouth at bedtime. [facility] Cholecalcif jose, Vitamin D3, 50 mcg (2,000 unit) capsule 01-13 13:24: 32 Yes 2000U Take 1 capsule by mouth. [facility] JARDIANCE 10 mg tablet 01-10 00:00: 00 05-08 00:00 :00 No [id number] 10mg TAKE 1 TABLET BY MOUTH IN THE MORNING. [facility] rosuvastati n 20 mg tablet 01-03 11:32: 51 Yes 20mg Take 1 tablet by mouth at bedtime. [facility] isosorbide mononitrate 120 mg 24 hr tablet 12-30 00:00: 00 Yes [id number] 120mg Take 1 tablet by mouth in the morning. [facility] HYDROcodone -acetaminop hen (NORCO 5) 5-325 mg tablet 1 tablet 12-27 17:31: 32 12-27 20:41 :22 No 1{tbl} [facility] traMADoL (ULTRAM) tablet 50 mg 12-27 17:31: 32 12-27 20:41 :22 No 50mg [facility] acetaminoph en (TYLENOL) tablet 650 mg 12-27 17:31: 32 12-27 20:41 :22 No 650mg [facility] lactated ringers IV infusion 1,000 mL 12-27 16:15: 00 12-27 20:41 :22 No 1000mL at 75 mL/hr, 1,000 mL, IV Infusion, CONTINUOUS , Starting on Sun12/28/23 at 1115, Until Sun12/28/23 at 1541, Routine, PACU [facility] HYDROmorpho ne (DILAUDID) injection 0.2 mg 12-27 16:08: 58 12-27 20:41 :22 No .2mg 0.2 mg, Slow IV Push, Q5MIN PRN, 10 doses, Starting on Sun12/28/23 at 1108, Until Sun12/28/23 at 1541, Routine, Pain (scale 7-10), PACU, Is this medication approved by a Faculty level provider? Yes, 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 : PACU RECOVERY [facility] FENTanyl PF (SUBLIMAZE (PF)) injection 25 mcg 12-27 16:08: 58 12-27 20:41 :22 No 25ug 25 mcg, Slow IV Push, Q5MIN PRN, 4 doses, Starting on Sun12/28/23 at 1108, Until Sun12/28/23 at 1541, Routine, Pain (scale 4-6), PACU [facility] proMETHazin e (PHENERGAN) 12.5 mg in NS 50 mL IV piggyback (CNR) 12-27 16:08: 58 12-27 20:41 :22 No 12.5mg 12.5 mg, IV Piggyback, at 200 mL/hr Administer over 15 Minutes, PRN, 1 dose, Starting on Sun12/28/23 at 1108, Until Sun12/28/23 at 1541, Routine, Nausea and Vomiting (N/V), PACU [facility] iodixanoL (VISIPAQUE 270-150 mL) injection 12-27 15:58: 00 12-27 16:13 :46 No PRN, Starting on Sun12/28/23 at 1058, Until Sun12/28/23 at 1113, Routine, Intra-op [facility] lidocaine 1% (PF) (XYLOCAINE) injection 12-27 15:57: 00 12-27 16:13 :46 No PRN, Starting on Sun12/28/23 at 1057, Until Sun12/28/23 at 1113, Routine, Intra-op [facility] metFORMIN (GLUCOPHAGE ) 500 mg tablet 12-27 13:41: 21 Yes 1000mg Take 2 tablets by mouth in the morning and 2 tablets in the evening. Take with meals. [facility] rosuvastati n 20 mg tablet 12-27 13:41: 21 Yes 20mg Take 1 tablet by mouth at bedtime. [facility] Cholecalcif jose, Vitamin D3, 50 mcg (2,000 unit) capsule 12-27 13:41: 21 Yes 2000U Take 1 capsule by mouth. [facility] metFORMIN (GLUCOPHAGE ) 500 mg tablet 12-26 13:25: 31 Yes 1000mg Take 2 tablets by mouth in the morning and 2 tablets in the evening. Take with meals. [facility] rosuvastati n 20 mg tablet 12-26 13:25: 31 Yes 20mg Take 1 tablet by mouth at bedtime. [facility] ISOSORBIDE MONONITRATE 120 mg 24 hr tablet 12-04 00:00: 00 12-29 00:00 :00 No [id number] 120mg TAKE 1 TABLET BY MOUTH IN THE MORNING [facility] iopamidol (ISOVUE 370-500 mL) injection 90 mL 11-08 18:15: 00 11-08 18:19 :00 No [id number] 90mL 90 mL, Intravenou s, ONCE, 1 dose, On Sun11/09/23 at 1330, Routine [facility] Cholecalcif jose, Vitamin D3, 50 mcg (2,000 unit) capsule 11-04 10:56: 00 Yes 2000U Take 1 capsule by mouth. [facility] empaglifloz in (JARDIANCE) 10 mg tablet - 00:00: 00 Yes [id number] 10mg Take 1 tablet by mouth in the morning. [facility] lidocaine 1% (PF) (XYLOCAINE) injection 09-20 14:11: 34 09-20 15:19 :33 No ONCE INTRA PROCEDURE, Starting on Sun09/21/23 at 0811, Until Sun09/21/23 at 0919, Routine, CV Intraproce dure [facility] iodixanol (VISIPAQUE 320-100 mL) injection 09-20 13:46: 21 09-20 15:19 :33 No ONCE INTRA PROCEDURE, Starting on Sun09/21/23 at 0746, Until Sun09/21/23 at 0919, Routine, CV Intraproce dure [facility] metFORMIN (GLUCOPHAGE ) 500 mg tablet 09-20 11:47: 26 Yes 1000mg Take 2 tablets by mouth in the morning and 2 tablets in the evening. Take with meals. [facility] rosuvastati n 20 mg tablet 09-20 11:47: 26 Yes 20mg Take 1 tablet by mouth at bedtime. [facility] [facility] Cholecalcif jose, Vitamin D3, 50 mcg (2,000 unit) capsule 09-20 11:47: 26 Yes 2000U Take 1 capsule by mouth. [facility] rosuvastati n 20 mg tablet 08-30 10:15: 58 Yes 20mg Take 1 tablet by mouth at bedtime. [facility] FreeStyle Lancets - FreeStyle Lancets - 08-15 [...] 75 mg tablet 08-02 00:00: 00 Yes [id number] 75mg TAKE 1 TABLET BY MOUTH IN THE MORNING [facility] empaglifloz in (JARDIANCE) 10 mg 2022-07 00:00: 00 Yes [id number] 10mg Take 1 tablet by mouth in the morning. [facility] amLODIPine 10 mg tablet 2022-07 00:00: 00 Yes [id number] 10mg Take 1 tablet by mouth every evening. [facility] lisinopriL 10 mg tablet 2022-07 00:00: 00 10-17 00:00 :00 No [id number] 10mg Take 1 tablet by mouth in the morning and 1 tablet in the evening. [facility] lisinopriL 10 mg tablet 2022-07 00:00: 00 Yes [id number] 10mg Take 1 tablet by mouth in the morning and 1 tablet in the evening. [facility] rosuvastati n 20 mg tablet 2022-07 10:45: 33 Yes 20mg Take 1 tablet by mouth at bedtime. [facility] isosorbide mononitrate 120 mg 24 hr tablet 2022-07 00:00: 00 Yes [id number] 120mg Take 1 tablet by mouth in the morning. [facility] isosorbide mononitrate 30 mg 24 hr tablet 2022-07 00:00: 00 06-29 00:00 :00 No [id number] 90mg Take 3 tablets by mouth in the morning. [facility] isosorbide mononitrate 30 mg 24 hr tablet 2022-07 00:00: 00 06-19 00:00 :00 No [id number] 90mg Take 3 tablets by mouth in the morning. [facility] isosorbide mononitrate (IMDUR) 24 hr tablet 120 mg 2022-07 14:00: 00 Yes 120mg 120 mg, Oral, DAILY, First dose (after last modificati on) on 05/20/23 at 0900, Until Discontinu ed, Routine [facility] aspirin (SEDRICK CHEWABLE ASPIRIN) 81 mg chewable tablet 2022-07 00:00: 00 Yes 81mg Take 1 tablet by mouth in the morning. Indication s: takes 2 per day [facility] isosorbide mononitrate 120 mg 24 hr tablet 2022-07 00:00: 00 05-22 00:00 :00 No [id number] 120mg Take 1 tablet by mouth in the morning. [facility] amLODIPine (NORVASC) tablet 10 mg 2022-07 22:00: 00 Yes 10mg 10 mg, Oral, QPM, First dose (after last modificati on) on 05/19/23 at 1700, Until Discontinu ed, Routine [facility] metFORMIN (GLUCOPHAGE ) 500 mg tablet 2022-07 17:14: 05 Yes 1000mg Take 2 tablets by mouth in the morning and 2 tablets in the evening. Take with meals. [facility] rosuvastati n 20 mg tablet 2022-07 17:14: 05 Yes 20mg Take 1 tablet by mouth at bedtime. [facility] Cholecalcif jose, Vitamin D3, 50 mcg (2,000 unit) capsule 2022-07 17:14: 05 Yes 2000U Take 1 capsule by mouth. [facility] enoxaparin (LOVENOX) injection 40 mg 2022-07 14:00: 00 Yes 40mg 40 mg, Subcutaneo us, DAILY, First dose on 05/19/23 at 0900, Until Discontinu ed, Routine [facility] clopidogreL (PLAVIX) 75 mg tablet 75 mg 2022-07 14:00: 00 Yes 75mg 75 mg, Oral, DAILY, First dose on 05/19/23 at 0900, Until Discontinu ed, Routine [facility] aspirin chewable tablet 81 mg 2022-07 14:00: 00 Yes 81mg 81 mg, Oral, DAILY, First dose on 05/19/23 at 0900, Until Discontinu ed [facility] SEDRICK CHEWABLE ASPIRIN ORAL 2022-07 13:53: 31 05-19 00:00 :00 No 81mg Take 81 mg by mouth. Indication s: takes 2 per day [facility] metoprolol tartrate (LOPRESSOR) tablet 50 mg 2022-07 13:00: 00 Yes 50mg 50 mg, Oral, BID MEALS, First dose on Sun05/19/23 at 0800, Until Discontinu ed, Routine [facility] Sliding Scale Insulin - Lispro (HumaLOG) 2022-07 02:00: 00 Yes Subcutaneo us, TID MEALS+HS, First dose on Sun05/18/23 at 2100, Until Discontinu ed, Routine [facility] rosuvastati n (CRESTOR) tablet 20 mg 2022-07 02:00: 00 Yes 20mg 20 mg, Oral, QHS, First dose on Sun05/18/23 at 2100, Until Discontinu ed, Routine [facility] lisinopriL (PRINIVIL,Z ESTRIL) tablet 10 mg 2022-07 01:00: 00 Yes 10mg 10 mg, Oral, BID, First dose on Sun05/18/23 at 2000, Until Discontinu ed, Routine [facility] ferrous sulfate 325 mg (65 mg iron) EC tablet 2022-07 00:00: 00 Yes [id number] 325mg Take 1 tablet by mouth every 48 (forty-eig ht) hours. [facility] nitroglycer in 0.4 mg sublingual tablet 2022-07 00:00: 00 08-15 00:00 :[id number] 1 tablet under the tongue every 5 (five) minutes as needed for Chest pain. [facility] amLODIPine 10 mg tablet 2022-07 00:00: 00 07-16 00:00 :00 No [id number] 10mg Take 1 tablet by mouth every evening. [facility] empaglifloz in (JARDIANCE) 10 mg 2022-07 00:00: 00 07-16 00:00 :00 No [id number] 10mg Take 1 tablet by mouth in the morning. [facility] dextrose 10% (D10W) bolus infusion 250 mL [...] blood glucose is < 80 mg/dL, repeat.
[facility] glucagon (GLUCAGEN DIAGNOSTIC KIT) injection 1 mg 2022-07 23:35: 14 Yes 1mg 1 mg, Intramuscu lar, PRN, Starting on Sun05/18/23 at 1835, Until Discontinu ed, MARIELY, Blood Glucose < or = 70 mg/dL and patient is NPO, unable to swallow or has mental changes. [facility] acetaminoph en (TYLENOL) tablet 650 mg 2022-07 23:31: 49 Yes 650mg 650 mg, Oral, Q6HPRN, Starting on Sun05/18/23 at 1831, Until Discontinu ed, Routine, Pain (scale 1-3) [facility] nitroglycer in (NITROSTAT) sublingual tablet 0.4 mg 2022-07 23:30: 42 Yes .4mg 0.4 mg, Sublingual , Q5MIN PRN, Starting on Sun05/18/23 at 1830, Until Discontinu ed, Routine, Chest pain [facility] aspirin chewable tablet 324 mg 2022-07 17:00: 00 05-18 16:27 :00 No 324mg 324 mg, Oral, ONCE, 1 dose, On Sun05/18/23 at 1200, Routine [facility] isosorbide mononitrate 30 mg 24 hr tablet 2022-07 00:00: 00 05-19 00:00 :00 No [id number] 90mg Take 3 tablets by mouth in the morning. [facility] metFORMIN (GLUCOPHAGE ) 500 mg tablet 2022-07 08:34: 36 Yes 1000mg Take 2 tablets by mouth in the morning and 2 tablets in the evening. Take with meals. [facility] SEDRICK CHEWABLE ASPIRIN ORAL 2022-07 08:34: 36 Yes 81mg Take 81 mg by mouth. Indication s: takes 2 per day [facility] rosuvastati n 20 mg tablet 2022-07 08:34: 36 Yes 20mg Take 1 tablet by mouth at bedtime. [facility] Cholecalcif jose, Vitamin D3, 50 mcg (2,000 unit) capsule 2022-07 08:34: 36 Yes 2000U Take 1 capsule by mouth. [facility] amLODIPine 2.5 mg tablet 2022-07 00:00: 00 05-19 00:00 :00 No 5mg Take 2 tablets by mouth every evening. [facility] SEDRICK CHEWABLE ASPIRIN ORAL 04-20 09:47: 02 Yes 81mg Take 81 mg by mouth. Indication s: takes 2 per day [facility] rosuvastati n 20 mg tablet 04-20 09:47: 02 Yes 20mg Take 1 tablet by mouth at bedtime. [facility] amLODIPine 2.5 mg tablet 04-20 00:00: 00 05-07 00:00 :00 No [id number] 2.5mg Take 1 tablet by mouth every evening. [facility] isosorbide mononitrate (IMDUR) 24 hr tablet 90 mg 04-11 14:00: 00 Yes 90mg 90 mg, Oral, DAILY, First dose (after last modificati on) on Sun04/11/23 at 0900, Until Discontinu ed, Routine [facility] rosuvastati n (CRESTOR) tablet 20 mg 04-11 02:00: 00 Yes 20mg 20 mg, Oral, QHS, First dose on Sun04/10/23 at 2100, Until Discontinu ed, Routine [facility] isosorbide mononitrate 30 mg 24 hr tablet 04-11 00:00: 00 05-17 00:00 :00 No [id number] 90mg Take 3 tablets by mouth in the morning. [facility] metFORMIN (GLUCOPHAGE ) 500 mg tablet 04-10 17:47: 38 Yes 1000mg Take 2 tablets by mouth in the morning and 2 tablets in the evening. Take with meals. [facility] SEDRICK CHEWABLE ASPIRIN ORAL 04-10 17:47: 38 Yes 81mg Take 81 mg by mouth. Indication s: takes 2 per day [facility] rosuvastati n 20 mg tablet 04-10 17:47: 38 Yes 20mg Take 1 tablet by mouth at bedtime. [facility] Cholecalcif jose, Vitamin D3, 50 mcg (2,000 unit) capsule 04-10 17:47: 38 Yes 2000U Take 1 capsule by mouth. [facility] isosorbide mononitrate (IMDUR) 24 hr tablet 30 mg 04-10 17:45: 00 04-10 22:04 :00 No 30mg 30 mg, Oral, ONCE, 1 dose, On Sun04/10/23 at 1245, Routine [facility] sulfur hexafluorid e microsphr (LUMASON) injection 5 mL 04-10 15:30: 00 04-10 15:30 :00 No [id number] 5mL 5 mL, Intravenou s, ONCE, 1 dose, On Sun04/10/23 at 1030, Routine
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 : ISAIAH ZACARIAS [facility] clopidogreL (PLAVIX) 75 mg tablet 75 mg 04-10 14:00: 00 Yes 75mg 75 mg, Oral, DAILY, First dose on Sun04/10/23 at 0900, Until Discontinu ed, Routine [facility] aspirin chewable tablet 81 mg 04-10 14:00: 00 Yes 81mg 81 mg, Oral, DAILY, First dose on Sun04/10/23 at 0900, Until Discontinu ed [facility] isosorbide mononitrate (IMDUR) 24 hr tablet 60 mg 04-10 14:00: 00 04-10 13:59 :54 No 60mg 60 mg, Oral, DAILY, First dose on Sun04/10/23 at 0900, Until Discontinu ed, Routine [facility] Sliding Scale Insulin - Lispro (HumaLOG) 04-10 13:00: 00 Yes Subcutaneo us, TID MEALS+HS, First dose on Sun04/10/23 at 0800, Until Discontinu ed, Routine [facility] metoprolol tartrate (LOPRESSOR) tablet 50 mg 04-10 13:00: 00 Yes 50mg 50 mg, Oral, BID MEALS, First dose on Sun04/10/23 at 0800, Until Discontinu ed, Routine [facility] lisinopriL (PRINIVIL,Z ESTRIL) tablet 10 mg 04-10 13:00: 00 Yes 10mg 10 mg, Oral, BID, First dose on Sun04/10/23 at 0800, Until Discontinu ed, Routine [facility] heparin 25,000 Units/250 mL (Premixed [...] Rang e, Dosing and Testing: &nbs p;FOR [place], [facility], AND [facility] ONLY &nbs p; - aPTT < [...] reached.&n bsp; &nbs p; __ &n bsp;FOR [facility] ONLY - aPTT < 40: & [...] ADJUST INITIAL BOLUS OR INITIAL INFUSION RATE.
[facility] heparin (1,000 unit/mL, 10 mL vial) for Rebolusing 04-10 11:14: 04 Yes 3000U FOR REBOLUSING , Starting on Sun04/10/23 at 0614, Until Discontinu ed, Routine
Dosing based on aPPT testing parameters (refer to continuous heparin drip order).
[facility] dextrose 10% (D10W) bolus infusion 250 mL [...] blood glucose is < 80 mg/dL, repeat.
[facility] glucagon (GLUCAGEN DIAGNOSTIC KIT) injection 1 mg 04-10 11:08: 36 Yes 1mg 1 mg, Intramuscu lar, PRN, Starting on Sun04/10/23 at 0608, Until Discontinu ed, MARIELY, Blood Glucose < or = 70 mg/dL and patient is NPO, unable to swallow or has mental changes. [facility] acetaminoph en (TYLENOL) tablet 650 mg 04-10 10:46: 56 Yes 650mg 650 mg, Oral, Q6HPRN, Starting on Sun04/10/23 at 0546, Until Discontinu ed, Routine, Pain (scale 1-3) [facility] metFORMIN (GLUCOPHAGE ) 500 mg tablet 04-10 05:48: 37 Yes 1000mg Take 2 tablets by mouth in the morning and 2 tablets in the evening. Take with meals. [facility] SEDRICK CHEWABLE ASPIRIN ORAL 04-10 05:48: 37 Yes 81mg Take 81 mg by mouth. Indication s: takes 2 per day [facility] rosuvastati n 20 mg tablet 04-10 05:48: 37 Yes 20mg Take 1 tablet by mouth at bedtime. [facility] Cholecalcif jose, Vitamin D3, 50 mcg (2,000 unit) capsule 04-10 05:48: 37 Yes 2000U Take 1 capsule by mouth. [facility] nitroglycer in 0.4 mg sublingual tablet 04-10 00:00: 00 05-19 00:00 :[id number] 1 tablet under the tongue every 5 (five) minutes as needed for Chest pain. [facility] clopidogreL (PLAVIX) 75 mg tablet 75 mg 04-08 14:00: 00 Yes 75mg 75 mg, Oral, DAILY, First dose on Sun04/08/23 at 0900, Until Discontinu ed, Routine [facility] metFORMIN (GLUCOPHAGE ) 500 mg tablet 04-07 15:41: 46 Yes 1000mg Take 2 tablets by mouth in the morning and 2 tablets in the evening. Take with meals. [facility] SEDRICK CHEWABLE ASPIRIN ORAL 04-07 15:41: 46 Yes 81mg Take 81 mg by mouth. Indication s: takes 2 per day [facility] rosuvastati n 20 mg tablet 04-07 15:41: 46 Yes 20mg Take 1 tablet by mouth at bedtime. [facility] Cholecalcif jose, Vitamin D3, 50 mcg (2,000 unit) capsule 04-07 15:41: 46 Yes 2000U Take 1 capsule by mouth. [facility] isosorbide mononitrate (IMDUR) 24 hr tablet 60 mg 04-07 14:00: 00 Yes 60mg 60 mg, Oral, DAILY, First dose on 04/07/23 at 0900, Until Discontinu ed, Routine [facility] aspirin chewable tablet 81 mg 04-07 14:00: 00 Yes 81mg 81 mg, Oral, DAILY, First dose on 04/07/23 at 0900, Until Discontinu ed [facility] docusate (COLACE) capsule 100 mg 04-07 14:00: 00 Yes 100mg 100 mg, Oral, DAILY, First dose on 04/07/23 at 0900, Until Discontinu ed, Routine [facility] clopidogreL (PLAVIX) 300 mg tablet 300 mg 04-07 13:00: 00 04-07 13:42 :00 No 300mg 300 mg, Oral, ONCE, 1 dose, On 04/07/23 at 0800, Routine [facility] rosuvastati n (CRESTOR) tablet 20 mg 04-07 02:00: 00 Yes 20mg 20 mg, Oral, QHS, First dose on Sun04/06/23 at 2100, Until Discontinu ed, [facility]isin[facility] (PRINIVIL,Z ESTRIL) tablet 10 mg 04-07 01:00: 00 Yes 10mg 10 mg, Oral, BID, First dose on Sun04/06/23 at 1999, Until Discontinu ed, Routine [facility] heparin (porcine) injection 5,000 Units 04-07 01:00: 00 Yes 5000U 5,000 Units, Subcutaneo us, Q12H, First dose on Sun04/06/23 at 1999, Until Discontinu ed, Routine [facility] ticagrelor (BRILINTA) tablet 90 mg 04-07 01:00: 00 04-07 13:43 :00 No 90mg 90 mg, Oral, BID, 2 doses, First dose on Sun04/06/23 at 1999, Last dose on Sun04/07/23 at 0800, Routine [facility] Sliding Scale Insulin - Lispro (HumaLOG) 04-06 22:00: 00 Yes Subcutaneo us, TID MEALS+HS, First dose on Sun04/06/23 at 1700, Until Discontinu ed, Routine [facility] metoprolol tartrate (LOPRESSOR) tablet 50 mg 04-06 22:00: 00 Yes 50mg 50 mg, Oral, BID MEALS, First dose on Sun04/06/23 at 1700, Until Discontinu ed, Routine [facility] glucagon (GLUCAGEN DIAGNOSTIC KIT) injection 1 mg 04-06 20:23: 25 Yes 1mg 1 mg, Intramuscu lar, PRN, Starting on Sun04/06/23 at 1523, Until Discontinu ed, MARIELY, Blood Glucose < or = 70 mg/dL and patient is NPO, unable to swallow or has mental changes. [facility] dextrose 50 % in water (D50W) injection 25 mL 04-06 20:23: 25 Yes 25mL 25 mL, Slow IV Push, PRN, Starting on Sun04/06/23 at 1523, Until Discontinu ed, MARIELY, Blood Glucose < or = 70 mg/dL and patient is NPO, unable to swallow or has mental status changes. [facility] NaCl 0.9% (NS) IV infusion 1,000 mL 04-06 20:15: 00 04-07 04:14 :00 No 1000mL at 50 mL/hr, IV Infusion, CONTINUOUS , Starting on Sun04/06/23 at 1515, Until Sun04/06/23 at 2314, Routine [facility] acetaminoph en (TYLENOL) tablet 650 mg 04-06 19:53: 55 Yes 650mg 650 mg, Oral, Q6HPRN, Starting on Sun04/06/23 at 1453, Until Discontinu ed, Routine, Pain (scale 1-3) [facility] en-codeine (TYLENOL #3) 300-30 mg tablet 1 tablet 04-06 19:53: 55 04-08 19:52 :55 No 1{tbl} 1 tablet, Oral, Q6HPRN, Starting on Sun04/06/23 at 1453, Until Sun04/08/23 at 1452, Routine, Pain (scale 4-6) [facility] acetaminoph en (TYLENOL) tablet 650 mg 04-06 18:45: 00 04-06 17:59 :00 No [id number] 650mg 650 mg, Oral, ONCE, 1 dose, On Sun04/06/23 at 1345, Routine [facility] ticagrelor (BRILINTA) tablet 04-06 16:51: 53 04-06 17:08 :07 No ONCE INTRA PROCEDURE, Starting on Sun04/06/23 at 1151, Until Sun04/06/23 at 1208, Routine, CV Intraproce dure [facility] iodixanol (VISIPAQUE 320-100 mL) injection 04-06 16:50: 12 04-06 17:12 :30 No ONCE INTRA PROCEDURE, Starting on Sun04/06/23 at 1150, Until Sun04/06/23 at 1212, Routine, CV Intraproce dure [facility] adenosine 6 mg/1000 mL 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 04-06 16:41: 45 04-06 17:08 :07 No ONCE INTRA PROCEDURE, Starting on Sun04/06/23 at 1141, Until Sun04/06/23 at 1208, Routine, CV Intraproce dure [facility] nitroglycer in (TRIDIL) 2 mg in 10 mL D5W for Cardiac Cath 04-06 16:41: 02 04-06 17:08 :07 No ONCE INTRA PROCEDURE, Starting on Sun04/06/23 at 1141, Until Sun04/06/23 at 1208, Routine, CV Intraproce dure [facility] heparin 1,000 unit/mL injection 04-06 16:11: 10 04-06 17:08 :07 No ONCE INTRA PROCEDURE, Starting on Sun04/06/23 at 1111, Until Sun04/06/23 at 1208, Routine, CV Intraproce dure [facility] hydralAZINE (APRESOLINE ) injection 04-06 16:09: 16 04-06 17:08 :07 No ONCE INTRA PROCEDURE, Starting on Sun04/06/23 at 1109, Until Sun04/06/23 at 1208, STAT, [facility] NaCl 0.9% (NS) bolus infusion 04-06 15:42: 10 04-06 17:08 :07 No CONTINUOUS PRN, Starting on Sun04/06/23 at 1042, Until Sun04/06/23 at 1208, STAT, CV Intraproce dure [facility] lidocaine 1% (PF) (XYLOCAINE) injection 04-06 15:29: 38 04-06 17:08 :07 No ONCE INTRA PROCEDURE, Starting on Sun04/06/23 at 1029, Until Sun04/06/23 at 1208, Routine, CV Intraproce dure [facility] FENTanyl PF (SUBLIMAZE (PF)) injection 04-06 15:23: 19 04-06 17:08 :07 No ONCE INTRA PROCEDURE, Starting on Sun04/06/23 at 1023, Until Sun04/06/23 at 1208, Routine, CV Intraproce dure [facility] midazolam (VERSED) injection 04-06 15:23: 01 04-06 17:08 :07 No ONCE INTRA PROCEDURE, Starting on Sun04/06/23 at 1023, Until Sun04/06/23 at 1208, Routine, CV Intraproce dure [facility] dapaglifloz in ([facility]) 10 mg tablet 04-06 15:01: 04-06 00:00 :00 No 1 By Mouth Daily for 90 [facility] ferrous sulfate 325 mg (65 mg iron) EC tablet 04-06 15:: 04-06 00:00 :00 No 1 tablet Orally Twice a day for 90 [facility] SEDRICK CHEWABLE ASPIRIN ORAL 03-07 11:12: 11 Yes 81mg Take 81 mg by mouth. Indication s: takes 2 per day [facility] rosuvastati n 20 mg tablet 03-07 11:12: 09 Yes 20mg Take 1 tablet by mouth at bedtime. [facility] dapaglifloz in () 10 mg tablet 03-07 11:12: 06 Yes 1 By Mouth Daily for 90 [facility] ferrous sulfate 325 mg (65 mg iron) EC tablet 03-07 10:50: 02 Yes 1 tablet Orally Twice a day for 90 [facility] lisinopriL 10 mg tablet 03-07 00:00: 00 07-13 00:00 :00 No [id number] 10mg Take 1 tablet by mouth in the morning and 1 tablet in the evening. [facility] isosorbide mononitrate 60 mg 24 hr tablet 03-07 00:00: 00 04-10 00:00 :00 No [id number] 60mg Take 1 tablet by mouth in the morning. [facility] clopidogreL 75 mg tablet 6-06 00:00: 00 08-02 00:00 :00 No [id number] 75mg Take 1 tablet by mouth in the morning. [facility] lidocaine 1% (PF) (XYLOCAINE) injection 12-19 12:42: 44 12-19 12:50 :52 No ONCE INTRA PROCEDURE, Starting on Sun12/19/22 at 0742, Until Sun12/19/22 at 0750, Routine, CV Intraproce dure [facility] vancomycin 1000 mg in NS 200 mL RTU IV Piggyback 12-19 12:40: 00 12-19 12:40 :00 No CONTINUOUS PRN, Starting on Sun12/19/22 at 0740, Until Sun12/19/22 at 0740, Administer over 60 Minutes, CV Intraproce dure [facility] metFORMIN (GLUCOPHAGE ) 500 mg tablet 12-19 09:46: 11 Yes 1000mg Take 1,000 mg by mouth 2 (two) times daily with meals. [facility] SEDRICK CHEWABLE ASPIRIN ORAL 12-19 09:46: 11 Yes 81mg Take 81 mg by mouth. Indication s: takes 2 per day [facility] rosuvastati n 20 mg tablet 12-19 09:46: 11 Yes 20mg Take 1 tablet by mouth at bedtime. [facility] Cholecalcif jose, Vitamin D3, 50 mcg (2,000 unit) capsule 12-19 09:46: 11 Yes 2000U Take 2,000 Units by mouth. [facility] dapaglifloz in (XIGA) 10 mg tablet 12-19 09:46: 11 Yes 1 By Mouth Daily for 90 [facility] ferrous sulfate 325 mg (65 mg iron) EC tablet 12-19 09:46: 11 Yes 1 tablet Orally Twice a day for 90 [facility] doxycycline hyclate 100 mg capsule 12-19 00:00: 00 04-06 00:00 :00 No [id number] 100mg Take 1 capsule by mouth every 12 (twelve) hours. [facility] dapaglifloz in (XIGA) 10 mg tablet 12-12 10:46: 21 Yes 1 By Mouth Daily for 90 [facility] ferrous sulfate 325 mg (65 mg iron) EC tablet 12-12 10:46: 21 Yes 1 tablet Orally Twice a day for 90 [facility] isosorbide mononitrate 30 mg 24 hr tablet 12-05 00:00: 00 03-07 00:00 :00 No [id number] 30mg Take 1 tablet by mouth in the morning. [facility] SEDRICK CHEWABLE ASPIRIN ORAL 11-16 08:48: 33 Yes 81mg Take 81 mg by mouth. Indication s: takes 2 per day [facility] rosuvastati n 20 mg tablet 11-16 08:48: 33 Yes 20mg Take 1 tablet by mouth at bedtime. [facility] SEDRICK CHEWABLE ASPIRIN ORAL 10-13 10:26: 34 Yes 81mg Take 81 mg by mouth. Indication s: takes 2 per day [facility] rosuvastati n 20 mg tablet 10-13 10:26: 34 Yes 20mg Take 20 mg by mouth at bedtime. [facility] ibuprofen 800 mg tablet 10-10 00:00: 00 04-10 00:00 :00 No 800mg Take 1 tablet by mouth every 8 (eight) hours as needed. [facility] rosuvastati n 20 mg tablet 08-24 16:47: 42 Yes 20mg Take 20 mg by mouth at bedtime. [facility] metFORMIN (GLUCOPHAGE ) 500 mg tablet 08-24 15:27: 49 Yes 1000mg Take 1,000 mg by mouth 2 (two) times daily with meals. [facility] SEDRICK CHEWABLE ASPIRIN ORAL 08-24 15:27: 49 Yes 81mg Take 81 mg by mouth. Indication s: takes 2 per day [facility] Cholecalcif jose, Vitamin D3, 50 mcg (2,000 unit) capsule 08-24 15:27: 49 Yes 2000U Take 2,000 Units by mouth. [facility] isosorbide mononitrate 30 mg 24 hr tablet 08-24 00:00: 00 12-05 00:00 :00 No [id number] 30mg Take 1 tablet by mouth in the morning. [facility] cefTRIAXone (ROCEPHIN) 1,000 mg in NaCl 0.9% (NS) 50 mL MINI-BAG 08-20 03:45: 00 08-20 03:45 :00 No 1000mg 1,000 mg, Intravenou s, ONCE, 1 dose, On 08/19/22 at 2145, Administer over 30 Minutes, 50 mL
Reas on for Anti-Infec tive: Documented Infection< br>Documen olvin Infection Site: Urine
D uration of Therapy: Other (see Comments) [facility] cefdinir 300 mg capsule 08-19 00:00: 00 08-25 05:59 :00 No [id number] 300mg Take 1 capsule by mouth every 12 (twelve) hours for 5 days. [facility] metoprolol tartrate 50 mg tablet 08-14 00:00: 00 06-13 00:00 :00 No 50mg Take 1 tablet by mouth in the morning and 1 tablet in the evening. Take with meals. [facility] metFORMIN (GLUCOPHAGE ) 500 mg tablet 2021-07 17:05: 04 Yes 1000mg Take 1,000 mg by mouth 2 (two) times daily with meals. [facility] SEDRICK CHEWABLE ASPIRIN ORAL 2021-07 17:05: 04 Yes 81mg Take 81 mg by mouth. Indication s: takes 2 per day [facility] rosuvastati n 20 mg tablet 2021-07 17:05: 04 Yes 20mg Take 20 mg by mouth at bedtime. [facility] Cholecalcif jose, Vitamin D3, 50 mcg (2,000 unit) capsule 2021-07 17:05: 04 Yes 2000U Take 2,000 Units by mouth. [facility] sulfur hexafluorid e microsphr (LUMASON) injection 5 mL 2021-07 16:15: 00 07-12 16:15 :00 No [id number] 5mL 5 mL, Intravenou s, ONCE, 1 dose, On Sun07/12/22 at 1015, Routine
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 : PARDEEP ACOSTA [facility] polyethylen e glycol 3350 powder 17 g 2021-07 15:00: 00 Yes 17g 17 g, Oral, DAILY, First dose on Sun07/12/22 at 0900, Until Discontinu ed, Routine [facility] lisinopriL (PRINIVIL,Z ESTRIL) tablet 5 mg 2021-07 15:00: 00 Yes 5mg 5 mg, Oral, DAILY, First dose on Sun07/12/22 at 0900, Until Discontinu ed, Routine [facility] isosorbide mononitrate (IMDUR) 24 hr tablet 60 mg 2021-07 15:00: 00 Yes 60mg 60 mg, Oral, DAILY, First dose on Sun07/12/22 at 0900, Until Discontinu ed, Routine [facility] cholecalcif jose (vitamin D3) tablet 1,000 Units 2021-07 15:00: 00 Yes 1000U 1,000 Units, Oral, DAILY, First dose on Sun07/12/22 at 0900, Until Discontinu ed [facility] clopidogreL (PLAVIX) 75 mg tablet 75 mg 2021-07 15:00: 00 Yes 75mg 75 mg, Oral, DAILY, First dose on Sun07/12/22 at 0900, Until Discontinu ed, Routine, CV Recovery to Floor
F aculty member approving Restricted medication : NAGA LAKHANI [facility] aspirin chewable tablet 81 mg 2021-07 15:00: 00 Yes 81mg 81 mg, Oral, DAILY, First dose on Sun07/12/22 at 0900, Until Discontinu ed, Routine, CV Recovery to Floor [facility] rosuvastati n (CRESTOR) tablet 20 mg 2021-07 03:00: 00 Yes 20mg 20 mg, Oral, QHS, First dose on Sun07/11/22 at 2100, Until Discontinu ed, Routine [facility] heparin (porcine) injection 5,000 Units 2021-07 02:00: 00 Yes 5000U 5,000 Units, Subcutaneo us, Q12H, First dose on Sun07/11/22 at 2000, Until Discontinu ed, Routine [facility] metoprolol tartrate (LOPRESSOR) tablet 25 mg 2021-07 02:00: 00 Yes 25mg 25 mg, Oral, BID, First dose on Sun07/11/22 at 2000, Until Discontinu ed, Routine [facility] clopidogreL 75 mg tablet 2021-07 00:00: 00 12-12 00:00 :00 No [id number] 75mg Take 1 tablet by mouth in the morning. [facility] Sliding Scale Insulin - Lispro (HumaLOG) + Fsbg Testing 2021-07 23:00: 00 Yes Subcutaneo us, TID MEALS+HS, First dose on Sun07/11/22 at 1700, Until Discontinu ed, Routine [facility] acetaminoph en (TYLENOL) tablet 650 mg 2021-07 21:06: 19 Yes 650mg 650 mg, Oral, Q6HPRN, Starting on Sun07/11/22 at 1506, Until Discontinu ed, Routine, Pain (scale 1-3) [facility] iodixanol (VISIPAQUE 320-100 mL) injection 2021-07 16:36: 10 07-11 16:56 :02 No ONCE INTRA PROCEDURE, Starting on Sun07/11/22 at 1036, Until Sun07/11/22 at 1056, Routine, CV Intraproce dure [facility] adenosine 6 mg/1000 mL 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 2021-07 16:19: 49 07-11 16:56 :02 No ONCE INTRA PROCEDURE, Starting on Sun07/11/22 at 1019, Until Sun07/11/22 at 1056, Routine, CV Intraproce dure [facility] nitroglycer in (TRIDIL) 2 mg in 10 mL D5W for Cardiac Cath 2021-07 15:17: 44 07-11 16:56 :02 No ONCE INTRA PROCEDURE, Starting on Sun07/11/22 at 0917, Until Sun07/11/22 at 1056, Routine, CV Intraproce dure [facility] heparin 1,000 unit/mL injection 2021-07 15:17: 31 07-11 16:56 :02 No ONCE INTRA PROCEDURE, Starting on Sun07/11/22 at 0917, Until Sun07/11/22 at 1056, Routine, CV Intraproce dure [facility] lidocaine 1% (PF) (XYLOCAINE) injection 2021-07 15:11: 54 07-11 16:56 :02 No ONCE INTRA PROCEDURE, Starting on Sun07/11/22 at 0911, Until Sun07/11/22 at 1056, Routine, CV Intraproce dure [facility] ezetimibe-s imvastatin 10-20 10-20 mg tablet 2021-07 15:09: 09 07-11 00:00 :00 No 1{tbl} Take 1 Tab by mouth at bedtime. [facility] ferrous sulfate 325 mg (65 mg iron) EC tablet 2021-07 15:09: 09 07-11 00:00 :00 No 1 tablet [facility] clopidogreL (PLAVIX) 300 mg tablet 600 mg 2021-07 15:00: 00 07-11 15:00 :00 No 600mg 600 mg, Oral, ONCE, 1 dose, On Sun07/11/22 at 0900, Routine [facility] midazolam (VERSED) injection 2021-07 14:58: 51 07-11 16:56 :02 No ONCE INTRA PROCEDURE, Starting on Sun07/11/22 at 0858, Until Sun07/11/22 at 1056, Routine, CV Intraproce dure [facility] FENTanyl PF (SUBLIMAZE (PF)) injection 2021-07 14:58: 44 07-11 16:56 :02 No ONCE INTRA PROCEDURE, Starting on Sun07/11/22 at 0858, Until Sun07/11/22 at 1056, Routine, CV Intraproce dure [facility] isosorbide mononitrate 60 mg 24 hr tablet 2021-07 00:00: 00 08-24 00:00 :00 No [id number] 60mg Take 1 tablet by mouth in the morning. [facility] iopamidol (ISOVUE 370-500 mL) injection 04-18 14:16: 56 04-18 14:23 :24 No ONCE INTRA PROCEDURE, Starting on Sun04/18/22 at 0916, Until Sun04/18/22 at 09, Routine, CV Intraproce dure [facility] hydralAZINE (APRESOLINE ) injection 04-18 13:43: 08 04-18 14:23 :24 No ONCE INTRA PROCEDURE, Starting on Sun04/18/22 at 0843, Until Sun04/18/22 at 0923, STAT, CV Intraproce dure [facility] lidocaine 1% (PF) (XYLOCAINE) injection 04-18 12:59: 54 04-18 14:23 :24 No ONCE INTRA PROCEDURE, Starting on Sun04/18/22 at 0759, Until Sun04/18/22 at 0923, Routine, CV Intraproce dure [facility] midazolam (VERSED) injection 04-18 12:50: 51 04-18 14:23 :24 No ONCE INTRA PROCEDURE, Starting on Sun04/18/22 at 0750, Until Sun04/18/22 at 09, Routine, CV Intraproce dure [facility] FENTanyl PF (SUBLIMAZE (PF)) injection 04-18 12:50: 38 04-18 14:23 :24 No ONCE INTRA PROCEDURE, Starting on Sun04/18/22 at 0750, Until Sun04/18/22 at 0923, Routine, CV Intraproce dure [facility] ezetimibe-s imvastatin 10-20 10-20 mg tablet 04-18 12:18: 45 Yes 1{tbl} Take 1 Tab by mouth at bedtime. [facility] metFORMIN (GLUCOPHAGE ) 500 mg tablet 04-18 12:18: 45 Yes 1000mg Take 1,000 mg by mouth 2 (two) times daily with meals. [facility] SEDRICK CHEWABLE ASPIRIN ORAL 04-18 12:18: 45 Yes 81mg Take 81 mg by mouth. Indication s: takes 2 per day [facility] rosuvastati n 20 mg tablet 04-18 12:18: 45 Yes 20mg Take 20 mg by mouth at bedtime. [facility] Cholecalcif jose, Vitamin D3, 50 mcg (2,000 unit) capsule 04-18 12:18: 45 Yes 2000U Take 2,000 Units by mouth. [facility] ferrous sulfate 325 mg (65 mg iron) EC tablet 04-18 12:18: 45 Yes 1 tablet [facility] isosorbide mononitrate 60 mg 24 hr tablet 04-18 00:00: 00 06-26 00:00 :00 No [id number] 30mg Take 0.5 tablets by mouth in the morning. [facility] ezetimibe-s imvastatin 10-20 10-20 mg tablet 03-28 11:22: 09 Yes 1{tbl} Take 1 Tab by mouth at bedtime. [facility] ferrous sulfate 325 mg (65 mg iron) EC tablet 03-28 11:22: 09 Yes 1 tablet [facility] metFORMIN (GLUCOPHAGE ) 500 mg tablet 03-23 13:05: 40 Yes 1000mg Take 2 tablets by mouth in the morning and 2 tablets in the evening. Take with meals. [facility] SEDRICK CHEWABLE ASPIRIN ORAL 03-23 13:05: 40 Yes 81mg Take 81 mg by mouth. Indication s: takes 2 per day [facility] rosuvastati n 20 mg tablet 03-23 13:05: 40 Yes 20mg Take 1 tablet by mouth at bedtime. [facility] Cholecalcif jose, Vitamin D3, 50 mcg (2,000 unit) capsule 03-23 13:05: 40 Yes 2000U Take 1 capsule by mouth. [facility] amoxicillin 500 mg capsule 02-25 00:00: 00 07-11 00:00 :00 No TAKE ONE CAPSULE BY MOUTH EVERY 8 HOURS FOR 10 DAYS [facility] meclizine 25 mg tablet 02-25 00:00: 00 07-11 00:00 :00 No TAKE 1 TABLET BY MOUTH EVERY 8 HOURS NEEDED [facility] lisinopriL 10 mg tablet 6-07 00:00: 00 03-07 00:00 :00 No [id number] 5mg Take 0.5 tablets by mouth in the morning. [facility] FARXIGA 10 mg tablet - 00:00: 00 07-11 00:00 :00 No [id number] 10mg Take 10 mg by mouth daily. [facility] metoprolol tartrate 25 mg tablet 2016-07-18 00:00: 00 08-24 00:00 :00 No 25mg Take 1 tablet by mouth 2 (two) times daily. [facility] metFORMIN HCl 1000 MG metFORMIN HCl 1000 [...] 1 tablet every day by oral route. [facility] Low Dose Aspirin 81 mg tablet,kristie yed release Take 1 tablet every day by oral route. Low Dose Aspirin 81 mg tablet,kristie yed release Take 1 tablet every day by oral route. No 1 Q1D Low Dose Aspirin 81 mg tablet,del ayed release Take 1 tablet every day by oral route. [facility] estradiol 0.01% (0.1 mg/gram) vaginal cream Insert [...] vaginal route at bedtime for [address] [facility] Myrbetriq 50 mg tablet,exte nded release Take 1 tablet every day by oral route for 90 days. Myrbetriq 50 mg tablet,exte nded release Take 1 tablet every day by oral route for 90 days. No 1 Q1D Myrbetriq 50 mg tablet,ext ended release Take 1 tablet every day by oral route for [address] [facility] Immunizations Ordered Immunization Name Filled Immunization Name Date Status Comments Source Influenza, adjuvanted, trivalent, PF (FLUAD) 2024-06-13 00:00:00 Completed SARS-COV-2 COVID-19 PFIZER VACCINE 2024 09:35:[address] [facility] Influenza Virus Vaccine,quad Im,preserve Free 65+ (FLUAD) 2024 09:35:[address] [facility] Influenza High Dose 2024 09:35:[address] [facility] Influenza Virus Vaccine,quad Im,preserve Free 65+ (FLUAD) 2024-01-04 11:30:[address] [facility] Influenza High Dose 2024-01-04 11:30:[address] [facility] SARS-COV-2 COVID-19 PFIZER VACCINE 2024-01-04 11:30:[address] [facility] SARS-COV-2 COVID-19 PFIZER VACCINE 2023-12-30 00:00:[address] [facility] Influenza Virus Vaccine,quad Im,preserve Free 65+ (FLUAD) 2023-12-30 00:00:[address] [facility] Influenza High Dose 2023-12-30 00:00:[address] [facility] SARS-COV-2 COVID-19 PFIZER VACCINE 2023-12-28 09:06:[address] [facility] Influenza Virus Vaccine,quad Im,preserve Free 65+ (FLUAD) 2023-12-28 09:06:[address] [facility] Influenza High Dose 2023-12-28 09:06:[address] [facility] SARS-COV-2 COVID-19 PFIZER VACCINE 2023-12-28 07:19:[address] [facility] Influenza Virus Vaccine,quad Im,preserve Free 65+ (FLUAD) 2023-12-28 07:19:[address] [facility] Influenza High Dose 2023-12-28 07:19:[address] [facility] Influenza Virus Vaccine,quad Im,preserve Free 65+ (FLUAD) 2023-12-27 13:40:[address] [facility] Influenza High Dose 2023-12-27 13:40:[address] [facility] SARS-COV-2 COVID-19 PFIZER VACCINE 2023-12-27 13:40:[address] [facility] SARS-COV-2 COVID-19 PFIZER VACCINE 2023-12-03 14:00:[address] [facility] Influenza Virus Vaccine,quad Im,preserve Free 65+ (FLUAD) 2023-12-03 14:00:[address] [facility] Influenza High Dose 2023-12-03 14:00:[address] [facility] SARS-COV-2 COVID-19 PFIZER VACCINE 2023-11-12 00:00:[address] [facility] Influenza Virus Vaccine,quad Im,preserve Free 65+ (FLUAD) 2023-11-12 00:00:[address] [facility] Influenza High Dose 2023-11-12 00:00:[address] [facility] Influenza Virus Vaccine,quad Im,preserve Free 65+ (FLUAD) 2023-11-09 12:30:[address] [facility] Influenza High Dose 2023-11-09 12:30:[address] [facility] SARS-COV-2 COVID-19 PFIZER VACCINE 2023-11-09 12:30:[address] [facility] SARS-COV-2 COVID-19 PFIZER VACCINE 2023-11-09 12:28:[address] [facility] Influenza Virus Vaccine,quad Im,preserve Free 65+ (FLUAD) 2023-11-09 12:28:[address] [facility] Influenza High Dose 2023-11-09 12:28:[address] [facility] SARS-COV-2 COVID-19 PFIZER VACCINE 2023-11-09 12:27:[address] [facility] Influenza Virus Vaccine,quad Im,preserve Free 65+ (FLUAD) 2023-11-09 12:27:[address] [facility] Influenza High Dose 2023-11-09 12:27:[address] [facility] Influenza Virus Vaccine,quad Im,preserve Free 65+ (FLUAD) 2023-11-05 11:00:[address] [facility] Influenza High Dose 2023-11-05 11:00:[address] [facility] SARS-COV-2 COVID-19 PFIZER VACCINE 2023-11-05 11:00:[address] [facility] SARS-COV-2 COVID-19 PFIZER VACCINE 2023-11-01 11:03:[address] [facility] Influenza Virus Vaccine,quad Im,preserve Free 65+ (FLUAD) 2023-11-01 11:03:[address] [facility] Influenza High Dose 2023-11-01 11:03:[address] [facility] SARS-COV-2 COVID-19 PFIZER VACCINE 2023-10-31 00:00:[address] [facility] Influenza Virus Vaccine,quad Im,preserve Free 65+ (FLUAD) 2023-10-31 00:00:[address] [facility] Influenza High Dose 2023-10-31 00:00:[address] [facility] Influenza Virus Vaccine,quad Im,preserve Free 65+ (FLUAD) 2023-10-29 14:30:[address] [facility] Influenza High Dose 2023-10-29 14:30:[address] [facility] SARS-COV-2 COVID-19 PFIZER VACCINE 2023-10-29 14:30:[address] [facility] SARS-COV-2 COVID-19 PFIZER VACCINE 2023-10-24 00:00:[address] [facility] Influenza Virus Vaccine,quad Im,preserve Free 65+ (FLUAD) 2023-10-24 00:00:[address] [facility] Influenza High Dose 2023-10-24 00:00:[address] [facility] Influenza Virus Vaccine,quad Im,preserve Free 65+ (FLUAD) 2023-10-22 00:00:[address] [facility] Influenza High Dose 2023-10-22 00:00:[address] [facility] SARS-COV-2 COVID-19 PFIZER VACCINE 2023-10-22 00:00:[address] [facility] SARS-COV-2 COVID-19 PFIZER VACCINE 2023-10-05 09:30:[address] [facility] Influenza Virus Vaccine,quad Im,preserve Free 65+ (FLUAD) 2023-10-05 09:30:[address] [facility] Influenza High Dose 2023-10-05 09:30:[address] [facility] SARS-COV-2 COVID-19 PFIZER VACCINE 2023-09-21 07:55:[address] [facility] Influenza Virus Vaccine,quad Im,preserve Free 65+ (FLUAD) 2023-09-21 07:55:[address] [facility] Influenza High Dose 2023-09-21 07:55:[address] [facility] SARS-COV-2 COVID-19 PFIZER VACCINE 2023-09-21 06:20:[address] [facility] Influenza Virus Vaccine,quad Im,preserve Free 65+ (FLUAD) 2023-09-21 06:20:[address] [facility] Influenza High Dose 2023-09-21 06:20:[address] [facility] SARS-COV-2 COVID-19 PFIZER VACCINE 2023-09-21 00:00:[address] [facility] Influenza Virus Vaccine,quad Im,preserve Free 65+ (FLUAD) 2023-09-21 00:00:[address] [facility] Influenza High Dose 2023-09-21 00:00:[address] [facility] Influenza Virus Vaccine,quad Im,preserve Free 65+ (FLUAD) 2023-09-17 15:30:[address] [facility] Influenza High Dose 2023-09-17 15:30:[address] [facility] SARS-COV-2 COVID-19 PFIZER VACCINE 2023-09-17 15:30:[address] [facility] SARS-COV-2 COVID-19 PFIZER VACCINE 2023-09-10 08:30:[address] [facility] Influenza Virus Vaccine,quad Im,preserve Free 65+ (FLUAD) 2023-09-10 08:30:[address] [facility] Influenza High Dose 2023-09-10 08:30:[address] [facility] SARS-COV-2 COVID-19 PFIZER VACCINE 2023-09-10 00:00:[address] [facility] Influenza Virus Vaccine,quad Im,preserve Free 65+ (FLUAD) 2023-09-10 00:00:[address] [facility] Influenza High Dose 2023-09-10 00:00:[address] [facility] Influenza Virus Vaccine,quad Im,preserve Free 65+ (FLUAD) 2023-08-30 10:20:[address] [facility] Influenza High Dose 2023-08-30 10:20:[address] [facility] SARS-COV-2 COVID-19 PFIZER VACCINE 2023-08-30 10:20:[address] [facility] SARS-COV-2 COVID-19 PFIZER VACCINE 2023-08-23 00:00:[address] [facility] Influenza Virus Vaccine,quad Im,preserve Free 65+ (FLUAD) 2023-08-23 00:00:[address] [facility] Influenza High Dose 2023-08-23 00:00:[address] [facility] SARS-COV-2 COVID-19 PFIZER VACCINE 2023-08-01 00:00:[address] [facility] Influenza Virus Vaccine,quad Im,preserve Free 65+ (FLUAD) 2023-08-01 00:00:[address] [facility] Influenza High Dose 2023-08-01 00:00:[address] [facility] SARS-COV-2 COVID-19 PFIZER VACCINE 2023-08-01 00:00:[address] [facility] Influenza Virus Vaccine,quad Im,preserve Free 65+ (FLUAD) 2023-08-01 00:00:[address] [facility] Influenza High Dose 2023-08-01 00:00:[address] [facility] Influenza Virus Vaccine,quad Im,preserve Free 65+ (FLUAD) 2023-07-13 00:00:[address] [facility] Influenza High Dose 2023-07-13 00:00:[address] [facility] SARS-COV-2 COVID-19 PFIZER VACCINE 2023-07-13 00:00:[address] [facility] SARS-COV-2 COVID-19 PFIZER VACCINE 2023-07-10 00:00:[address] [facility] Influenza Virus Vaccine,quad Im,preserve Free 65+ (FLUAD) 2023-07-10 00:00:[address] [facility] Influenza High Dose 2023-07-10 00:00:[address] [facility] SARS-COV-2 COVID-19 PFIZER VACCINE 2023-06-29 11:00:[address] [facility] Influenza Virus Vaccine,quad Im,preserve Free 65+ (FLUAD) 2023-06-29 11:00:[address] [facility] Influenza High Dose 2023-06-29 11:00:[address] [facility] SARS-COV-2 COVID-19 PFIZER VACCINE 2023-06-29 10:30:[address] [facility] Influenza Virus Vaccine,quad Im,preserve Free 65+ (FLUAD) 2023-06-29 10:30:[address] [facility] Influenza High Dose 2023-06-29 10:30:[address] [facility] SARS-COV-2 COVID-19 PFIZER VACCINE 2023-06-29 00:00:[address] [facility] Influenza Virus Vaccine,quad Im,preserve Free 65+ (FLUAD) 2023-06-29 00:00:[address] [facility] Influenza High Dose 2023-06-29 00:00:[address] [facility] SARS-COV-2 COVID-19 PFIZER VACCINE 2023-06-19 00:00:[address] [facility] Influenza Virus Vaccine,quad Im,preserve Free 65+ (FLUAD) 2023-06-19 00:00:[address] [facility] Influenza High Dose 2023-06-19 00:00:[address] [facility] SARS-COV-2 COVID-19 PFIZER VACCINE 2023-06-01 14:36:[address] [facility] Influenza Virus Vaccine,quad Im,preserve Free 65+ (FLUAD) 2023-06-01 14:36:[address] [facility] Influenza High Dose 2023-06-01 14:36:[address] [facility] SARS-COV-2 COVID-19 PFIZER VACCINE 2023-06-01 14:36:[address] [facility] Influenza Virus Vaccine,quad Im,preserve Free 65+ (FLUAD) 2023-06-01 14:36:[address] [facility] Influenza High Dose 2023-06-01 14:36:[address] [facility] SARS-COV-2 COVID-19 PFIZER VACCINE 2023-05-22 00:00:[address] [facility] Influenza Virus Vaccine,quad Im,preserve Free 65+ (FLUAD) 2023-05-22 00:00:[address] [facility] Influenza High Dose 2023-05-22 00:00:[address] [facility] SARS-COV-2 COVID-19 PFIZER VACCINE 2023-05-21 00:00:[address] [facility] Influenza Virus Vaccine,quad Im,preserve Free 65+ (FLUAD) 2023-05-21 00:00:[address] [facility] Influenza High Dose 2023-05-21 00:00:[address] [facility] SARS-COV-2 COVID-19 PFIZER VACCINE 2023-05-18 10:54:[address] [facility] Influenza Virus Vaccine,quad Im,preserve Free 65+ (FLUAD) 2023-05-18 10:54:[address] [facility] Influenza High Dose 2023-05-18 10:54:[address] [facility] SARS-COV-2 COVID-19 PFIZER VACCINE 2023-05-17 08:40:[address] [facility] Influenza Virus Vaccine,quad Im,preserve Free 65+ (FLUAD) 2023-05-17 08:40:[address] [facility] Influenza High Dose 2023-05-17 08:40:[address] [facility] SARS-COV-2 COVID-19 PFIZER VACCINE 2023-05-09 00:00:[address] [facility] Influenza Virus Vaccine,quad Im,preserve Free 65+ (FLUAD) 2023-05-09 00:00:[address] [facility] SARS-COV-2 COVID-19 PFIZER VACCINE 2023-05-07 08:30:[address] [facility] Influenza Virus Vaccine,quad Im,preserve Free 65+ (FLUAD) 2023-05-07 08:30:[address] [facility] SARS-COV-2 COVID-19 PFIZER VACCINE 2023-04-23 00:00:[address] [facility] [facility] Influenza Virus Vaccine,quad Im,preserve Free 65+ (FLUAD) 2023-04-23 00:00:[address] [facility] SARS-COV-2 COVID-19 PFIZER VACCINE 2023-04-20 10:00:[address] [facility] Influenza Virus Vaccine,quad Im,preserve Free 65+ (FLUAD) 2023-04-20 10:00:[address] [facility] SARS-COV-2 COVID-19 PFIZER VACCINE 2023-04-13 00:00:[address] [facility] Influenza Virus Vaccine,quad Im,preserve Free 65+ (FLUAD) 2023-04-13 00:00:[address] [facility] SARS-COV-2 COVID-19 PFIZER VACCINE 2023-04-11 00:00:00 Completed [facility] Influenza Virus Vaccine,quad Im,preserve Free 65+ (FLUAD) 2023-04-11 00:00:[address] [facility] SARS-COV-2 COVID-19 PFIZER VACCINE 2023-04-09 00:00:[address] [facility] Influenza Virus Vaccine,quad Im,preserve Free 65+ (FLUAD) 2023-04-09 00:00:[address] [facility] SARS-COV-2 COVID-19 PFIZER VACCINE 2022-07-20 00:00:[address] [facility] Influenza Virus Vaccine,quad Im,preserve Free 65+ (FLUAD) 2022-07-20 00:00:[address] [facility] SARS-COV-2 COVID-19 PFIZER VACCINE 2022-06-14 00:00:[address] [facility] Influenza Virus Vaccine,quad Im,preserve Free 65+ (FLUAD) 2022-06-14 00:00:[address] [facility] SARS-COV-2 COVID-19 PFIZER VACCINE 2022-01-21 00:00:[address] [facility] Influenza Virus Vaccine,quad Im,preserve Free 65+ (FLUAD) 2022-01-21 00:00:[address] [facility] Influenza Virus Vaccine,quad Im,preserve Free 65+ 2021-07-04 00:00:[address] [facility] Influenza Virus Vaccine,quad Im,preserve Free 65+ 2021-07-04 00:00:[address] [facility] Influenza Virus Vaccine,quad Im,preserve Free 65+ 2021-07-04 00:00:[address] [facility] Influenza Virus Vaccine,quad Im,preserve Free 65+ 2021-07-04 00:00:[address] [facility] Influenza Virus Vaccine,quad Im,preserve Free 65+ 2021-07-04 00:00:[address] [facility] Influenza Virus Vaccine,quad Im,preserve Free 65+ 2021-07-04 00:00:[address] [facility] Influenza Virus Vaccine,quad Im,preserve Free 65+ 2021-07-04 00:00:[address] [facility] Influenza Virus Vaccine,quad Im,preserve Free 65+ 2021-07-04 00:00:[address] [facility] Influenza Virus Vaccine,quad Im,preserve Free 65+ 2021-07-04 00:00:[address] [facility] Influenza Virus Vaccine,quad Im,preserve Free 65+ 2021-07-04 00:00:[address] [facility] Influenza Virus Vaccine,quad Im,preserve Free 65+ 2021-07-04 00:00:[address] [facility] Influenza Virus Vaccine,quad Im,preserve Free 65+ 2021-07-04 00:00:[address] [facility] Influenza Virus Vaccine,quad Im,preserve Free 65+ 2021-07-04 00:00:[address] [facility] Influenza Virus Vaccine,quad Im,preserve Free 65+ 2021-07-04 00:00:[address] [facility] Influenza Virus Vaccine,quad Im,preserve Free 652021-07-04 00:00:[address] [facility] Influenza Virus Vaccine,quad Im,preserve Free 652021-07-04 00:00:[address] [facility] Influenza Virus Vaccine,quad Im,preserve Free 652021-07-04 00:00:[address] [facility] Influenza Virus Vaccine,quad Im,preserve Free 652021-07-04 00:00:[address] [facility] Influenza Virus Vaccine,quad Im,preserve Free 652021-07-04 00:00:[address] [facility] Influenza Virus Vaccine,quad Im,preserve Free 652021-07-04 00:00:[address] [facility] Influenza Virus Vaccine,quad Im,preserve Free 652021-07-04 00:00:[address] [facility] Influenza Virus Vaccine,quad Im,preserve Free 652021-07-04 00:00:[address] [facility] Influenza Virus Vaccine,quad Im,preserve Free 652021-07-04 00:00:[address] [facility] Influenza Virus Vaccine,quad Im,preserve Free 652021-07-04 00:00:[address] [facility] Influenza Virus Vaccine,quad Im,preserve Free 65+ 2021-07-04 00:00:[address] [facility] Influenza Virus Vaccine,quad Im,preserve Free 652021-07-04 00:00:00 Completed [facility] Influenza Virus Vaccine,quad Im,preserve Free 65+ 2021-07-04 00:00:[address] [facility] Influenza Virus Vaccine,quad Im,preserve Free 65+ 2021-07-04 00:00:[address] [facility] Influenza Virus Vaccine,quad Im,preserve Free 65+ 2021-07-04 00:00:[address] [facility] Influenza Virus Vaccine,quad Im,preserve Free 65+ 2021-07-04 00:00:[address] [facility] Influenza Virus Vaccine,quad Im,preserve Free 65+ 2021-07-04 00:00:[address] [facility] Influenza Virus Vaccine,quad Im,preserve Free 65+ 2021-07-04 00:00:[address] [facility] Influenza Virus Vaccine,quad Im,preserve Free 65+ 2021-07-04 00:00:[address] [facility] Influenza Virus Vaccine,quad Im,preserve Free 65+ 2021-07-04 00:00:[address] [facility] Influenza Virus Vaccine,quad Im,preserve Free 65+ 2021-07-04 00:00:[address] [facility] Influenza Virus Vaccine,quad Im,preserve Free 65+ 2021-07-04 00:00:[address] [facility] Influenza Virus Vaccine,quad Im,preserve Free 65+ 2021-07-04 00:00:[address] [facility] Influenza Virus Vaccine,quad Im,preserve Free 65+ 2021-07-04 00:00:[address] [facility] Influenza Virus Vaccine,quad Im,preserve Free 65+ 2021-07-04 00:00:[address] [facility] Influenza Virus Vaccine,quad Im,preserve Free 65+ (FLUAD) 2021-07-04 00:00:[address] [facility] Influenza Virus Vaccine,quad Im,preserve Free 65+ (FLUAD) 2021-07-04 00:00:[address] [facility] Influenza Virus Vaccine,quad Im,preserve Free 65+ (FLUAD) 2021-07-04 00:00:[address] [facility] Influenza Virus Vaccine,quad Im,preserve Free 65+ (FLUAD) 2021-07-04 00:00:[address] [facility] Influenza Virus Vaccine,quad Im,preserve Free 65+ (FLUAD) 2021-07-04 00:00:[address] [facility] SARS-COV-2 COVID-19 PFIZER VACCINE 2020-12-13 00:00:[address] [facility] SARS-COV-2 COVID-19 PFIZER VACCINE 2020-12-13 00:00:[address] [facility] SARS-COV-2 COVID-19 PFIZER VACCINE 2020-12-13 00:00:[address] [facility] SARS-COV-2 COVID-19 PFIZER VACCINE 2020-12-13 00:00:[address] [facility] SARS-COV-2 COVID-19 PFIZER VACCINE 2020-12-13 00:00:[address] [facility] SARS-COV-2 COVID-19 PFIZER VACCINE 2020-12-13 00:00:[address] [facility] SARS-COV-2 COVID-19 PFIZER VACCINE 2020-12-13 00:00:[address] [facility] SARS-COV-2 COVID-19 PFIZER VACCINE 2020-12-13 00:00:[address] [facility] SARS-COV-2 COVID-19 PFIZER VACCINE 2020-12-13 00:00:[address] [facility] SARS-COV-2 COVID-19 PFIZER VACCINE 2020-12-13 00:00:[address] [facility] SARS-COV-2 COVID-19 PFIZER VACCINE 2020-12-13 00:00:[address] [facility] SARS-COV-2 COVID-19 PFIZER VACCINE 2020-12-13 00:00:[address] [facility] SARS-COV-2 COVID-19 PFIZER VACCINE 2020-12-13 00:00:[address] [facility] SARS-COV-2 COVID-19 PFIZER VACCINE 2020-12-13 00:00:[address] [facility] SARS-COV-2 COVID-19 PFIZER VACCINE 2020-12-13 00:00:[address] [facility] SARS-COV-2 COVID-19 PFIZER VACCINE 2020-12-13 00:00:[address] [facility] SARS-COV-2 COVID-19 PFIZER VACCINE 2020-12-13 00:00:[address] [facility] SARS-COV-2 COVID-19 PFIZER VACCINE 2020-12-13 00:00:[address] [facility] SARS-COV-2 COVID-19 PFIZER VACCINE 2020-12-13 00:00:[address] [facility] SARS-COV-2 COVID-19 PFIZER VACCINE 2020-12-13 00:00:[address] [facility] SARS-COV-2 COVID-19 PFIZER VACCINE 2020-12-13 00:00:[address] [facility] SARS-COV-2 COVID-19 PFIZER VACCINE 2020-12-13 00:00:[address] [facility] SARS-COV-2 COVID-19 PFIZER VACCINE 2020-12-13 00:00:[address] [facility] SARS-COV-2 COVID-19 PFIZER VACCINE 2020-12-13 00:00:[address] [facility] SARS-COV-2 COVID-19 PFIZER VACCINE 2020-12-13 00:00:[address] [facility] SARS-COV-2 COVID-19 PFIZER VACCINE 2020-12-13 00:00:[address] [facility] SARS-COV-2 COVID-19 PFIZER VACCINE 2020-12-13 00:00:[address] [facility] SARS-COV-2 COVID-19 PFIZER VACCINE 2020-12-13 00:00:[address] [facility] SARS-COV-2 COVID-19 PFIZER VACCINE 2020-12-13 00:00:[address] [facility] SARS-COV-2 COVID-19 PFIZER VACCINE 2020-12-13 00:00:[address] [facility] SARS-COV-2 COVID-19 PFIZER VACCINE 2020-12-13 00:00:[address] [facility] SARS-COV-2 COVID-19 PFIZER VACCINE 2020-12-13 00:00:[address] [facility] SARS-COV-2 COVID-19 PFIZER VACCINE 2020-12-13 00:00:[address] [facility] SARS-COV-2 COVID-19 PFIZER VACCINE 2020-12-13 00:00:[address] [facility] SARS-COV-2 COVID-19 PFIZER VACCINE 2020-12-13 00:00:[address] [facility] SARS-COV-2 COVID-19 PFIZER VACCINE 2020-12-13 00:00:[address] [facility] SARS-COV-2 COVID-19 PFIZER VACCINE 2020-12-13 00:00:[address] [facility] SARS-COV-2 COVID-19 PFIZER VACCINE 2020-12-13 00:00:[address] [facility] SARS-COV-2 COVID-19 PFIZER VACCINE 2020-12-13 00:00:[address] [facility] SARS-COV-2 COVID-19 PFIZER VACCINE 2020-12-13 00:00:[address] [facility] SARS-COV-2 COVID-19 PFIZER VACCINE 2020-12-13 00:00:[address] [facility] SARS-COV-2 COVID-19 PFIZER VACCINE 2020-12-13 00:00:[address] [facility] SARS-COV-2 COVID-19 PFIZER VACCINE 2020-12-13 00:00:[address] [facility] SARS-COV-2 COVID-19 PFIZER VACCINE 2020-12-13 00:00:[address] [facility] SARS-COV-2 COVID-19 PFIZER VACCINE 2020-12-13 00:00:[address] [facility] SARS-COV-2 COVID-19 PFIZER VACCINE 2020-11-20 00:00:[address] [facility] SARS-COV-2 COVID-19 PFIZER VACCINE 2020-11-20 00:00:[address] [facility] SARS-COV-2 COVID-19 PFIZER VACCINE 2020-11-20 00:00:[address] [facility] SARS-COV-2 COVID-19 PFIZER VACCINE 2020-11-20 00:00:[address] [facility] SARS-COV-2 COVID-19 PFIZER VACCINE 2020-11-20 00:00:[address] [facility] SARS-COV-2 COVID-19 PFIZER VACCINE 2020-11-20 00:00:[address] [facility] SARS-COV-2 COVID-19 PFIZER VACCINE 2020-11-20 00:00:[address] [facility] SARS-COV-2 COVID-19 PFIZER VACCINE 2020-11-20 00:00:[address] [facility] SARS-COV-2 COVID-19 PFIZER VACCINE 2020-11-20 00:00:[address] [facility] SARS-COV-2 COVID-19 PFIZER VACCINE 2020-11-20 00:00:[address] [facility] SARS-COV-2 COVID-19 PFIZER VACCINE 2020-11-20 00:00:[address] [facility] SARS-COV-2 COVID-19 PFIZER VACCINE 2020-11-20 00:00:[address] [facility] SARS-COV-2 COVID-19 PFIZER VACCINE 2020-11-20 00:00:[address] [facility] SARS-COV-2 COVID-19 PFIZER VACCINE 2020-11-20 00:00:[address] [facility] SARS-COV-2 COVID-19 PFIZER VACCINE 2020-11-20 00:00:[address] [facility] SARS-COV-2 COVID-19 PFIZER VACCINE 2020-11-20 00:00:[address] [facility] SARS-COV-2 COVID-19 PFIZER VACCINE 2020-11-20 00:00:[address] [facility] SARS-COV-2 COVID-19 PFIZER VACCINE 2020-11-20 00:00:[address] [facility] SARS-COV-2 COVID-19 PFIZER VACCINE 2020-11-20 00:00:[address] [facility] SARS-COV-2 COVID-19 PFIZER VACCINE 2020-11-20 00:00:[address] [facility] SARS-COV-2 COVID-19 PFIZER VACCINE 2020-11-20 00:00:[address] [facility] SARS-COV-2 COVID-19 PFIZER VACCINE 2020-11-20 00:00:[address] [facility] SARS-COV-2 COVID-19 PFIZER VACCINE 2020-11-20 00:00:[address] [facility] SARS-COV-2 COVID-19 PFIZER VACCINE 2020-11-20 00:00:[address] [facility] SARS-COV-2 COVID-19 PFIZER VACCINE 2020-11-20 00:00:[address] [facility] SARS-COV-2 COVID-19 PFIZER VACCINE 2020-11-20 00:00:[address] [facility] SARS-COV-2 COVID-19 PFIZER VACCINE 2020-11-20 00:00:[address] [facility] SARS-COV-2 COVID-19 PFIZER VACCINE 2020-11-20 00:00:[address] [facility] SARS-COV-2 COVID-19 PFIZER VACCINE 2020-11-20 00:00:[address] [facility] SARS-COV-2 COVID-19 PFIZER VACCINE 2020-11-20 00:00:[address] [facility] SARS-COV-2 COVID-19 PFIZER VACCINE 2020-11-20 00:00:[address] [facility] SARS-COV-2 COVID-19 PFIZER VACCINE 2020-11-20 00:00:[address] [facility] SARS-COV-2 COVID-19 PFIZER VACCINE 2020-11-20 00:00:[address] [facility] SARS-COV-2 COVID-19 PFIZER VACCINE 2020-11-20 00:00:[address] [facility] SARS-COV-2 COVID-19 PFIZER VACCINE 2020-11-20 00:00:[address] [facility] SARS-COV-2 COVID-19 PFIZER VACCINE 2020-11-20 00:00:[address] [facility] SARS-COV-2 COVID-19 PFIZER VACCINE 2020-11-20 00:00:[address] [facility] SARS-COV-2 COVID-19 PFIZER VACCINE 2020-11-20 00:00:[address] [facility] SARS-COV-2 COVID-19 PFIZER VACCINE 2020-11-20 00:00:[address] [facility] SARS-COV-2 COVID-19 PFIZER VACCINE 2020-11-20 00:00:[address] [facility] SARS-COV-2 COVID-19 PFIZER VACCINE 2020-11-20 00:00:[address] [facility] SARS-COV-2 COVID-19 PFIZER VACCINE 2020-11-20 00:00:[address] [facility] SARS-COV-2 COVID-19 PFIZER VACCINE 2020-11-20 00:00:[address] [facility] SARS-COV-2 COVID-19 PFIZER VACCINE 2020-11-20 00:00:[address] [facility] FluAD FluAD 2018-05-08 10:08:00 Completed [facility] FluAD FluAD 2018-05-08 10:08:00 Completed [facility] FluAD FluAD 2018-05-08 10:08:00 Completed [facility] FluAD FluAD 2018-05-08 10:08:00 Completed [facility] FluAD FluAD 2018-05-08 10:08:00 Completed [facility] FluAD FluAD 2018-05-08 10:08:00 Completed [facility] FluAD FluAD 2018-05-08 10:08:00 Completed [facility] FluAD FluAD 2018-05-08 00:00:00 Completed [facility] Prevnar 20 (PCV20) Prevnar 20 (PCV20) Unknown Completed [facility] FluAD Quad SD FluAD Quad SD Unknown Completed [facility] FluAD FluAD Unknown Completed [facility] Prevnar 20 (PCV20) Prevnar 20 (PCV20) Unknown Completed [facility] FluAD Quad SD FluAD Quad SD Unknown Completed [facility] FluAD FluAD Unknown Completed [facility] Prevnar 20 (PCV20) Prevnar 20 (PCV20) Unknown Completed [facility] FluAD Quad SD FluAD Quad SD Unknown Completed [facility] FluAD FluAD Unknown Completed [facility] Prevnar 20 (PCV20) Prevnar 20 (PCV20) Unknown Completed [facility] Fluad (aIIV4) - SDS - 0.5mL Fluad (aIIV4) - SDS - 0.5mL Unknown Completed [facility] FluAD FluAD Unknown Completed [facility] Prevnar 20 (PCV20) Prevnar 20 (PCV20) Unknown Completed [facility] Fluad (aIIV4) - SDS - 0.5mL Fluad (aIIV4) - SDS - 0.5mL Unknown Completed [facility] FluAD FluAD Unknown Completed [facility] Prevnar 20 (PCV20) Prevnar 20 (PCV20) Unknown Completed [facility] Fluad (aIIV4) - SDS - 0.5mL Fluad (aIIV4) - SDS - 0.5mL Unknown Completed [facility] FluAD FluAD Unknown Completed [facility] Prevnar 20 (PCV20) Prevnar 20 (PCV20) Unknown Completed [facility] Fluad (aIIV4) - SDS - 0.5mL Fluad (aIIV4) - SDS - 0.5mL Unknown Completed [facility] FluAD FluAD Unknown Completed [facility] Prevnar 20 (PCV20) Prevnar 20 (PCV20) Unknown Completed [facility] Fluad (aIIV4) - SDS - 0.5mL Fluad (aIIV4) - SDS - 0.5mL Unknown Completed [facility] FluAD FluAD Unknown Completed [facility] Prevnar 20 (PCV20) Prevnar 20 (PCV20) Unknown Completed [facility] Fluad (aIIV4) - SDS - 0.5mL Fluad (aIIV4) - SDS - 0.5mL Unknown Completed [facility] FluAD FluAD Unknown Completed [facility] Prevnar 20 (PCV20) Prevnar 20 (PCV20) Unknown Completed [facility] Fluad (aIIV4) - SDS - 0.5mL Fluad (aIIV4) - SDS - 0.5mL Unknown Completed [facility] FluAD FluAD Unknown Completed [facility] Prevnar 20 (PCV20) Prevnar 20 (PCV20) Unknown Completed [facility] Fluad (aIIV4) - SDS - 0.5mL Fluad (aIIV4) - SDS - 0.5mL Unknown Completed [facility] FluAD FluAD Unknown Completed [facility] Prevnar 20 (PCV20) Prevnar 20 (PCV20) Unknown Completed [facility] Fluad (aIIV4) - SDS - 0.5mL Fluad (aIIV4) - SDS - 0.5mL Unknown Completed [facility] FluAD FluAD Unknown Completed [facility] Prevnar 20 (PCV20) Prevnar 20 (PCV20) Unknown Completed [facility] Fluad (aIIV4) - SDS - 0.5mL Fluad (aIIV4) - SDS - 0.5mL Unknown Completed [facility] FluAD FluAD Unknown Completed [facility] Prevnar 20 (PCV20) Prevnar 20 (PCV20) Unknown Completed [facility] Fluad (aIIV4) - SDS - 0.5mL Fluad (aIIV4) - SDS - 0.5mL Unknown Completed [facility] FluAD FluAD Unknown Completed [facility] Prevnar 20 (PCV20) Prevnar 20 (PCV20) Unknown Completed [facility] Fluad (aIIV4) - SDS - 0.5mL Fluad (aIIV4) - SDS - 0.5mL Unknown Completed [facility] FluAD FluAD Unknown Completed [facility] Prevnar 20 (PCV20) Prevnar 20 (PCV20) Unknown Completed [facility] Fluad (aIIV4) - SDS - 0.5mL Fluad (aIIV4) - SDS - 0.5mL Unknown Completed [facility] FluAD FluAD Unknown Completed [facility] Vital Signs Vital Name Observation Time Observation Value Comments Carissa cedillo Systolic blood pressure 2024-11-29 18:01:06 177 mm[Hg] [facility] Diastolic blood pressure 2024-11-29 18:01:06 57 mm[Hg] [facility] Heart rate 2024-11-29 18:01:06 58 /min [facility] Body temperature 2024-11-29 18:01:[address] [facility] Respiratory rate 2024-11-29 18:01:06 16 /min [facility] Oxygen saturation in Arterial blood by Pulse oximetry 2024-11-29 18:01:06 100 /min [facility] Body height 2024-11-29 15:12:[address] [facility] Body weight 2024-11-29 15:12:00 47.174 kg [facility] BMI 2024-11-29 15:12:00 22.51 kg/m2 [facility] Systolic blood pressure 2024-10-17 14:19:00 169 mm[Hg] [facility] Diastolic blood pressure 2024-10-17 14:19:00 66 mm[Hg] [facility] Heart rate 2024-10-17 14:19:00 63 /min [facility] Oxygen saturation in Arterial blood by Pulse oximetry 2024-10-17 14:19:00 99 /min [facility] Respiratory rate 2024-10-17 14:15:00 20 /min [facility] Body weight 2024-10-17 14:15:[address] [facility] BMI 2024-10-17 14:15:00 23.18 kg/m2 [facility] BMI (Body Mass Index) 2024-10-14 00:00:00 22.9 kg/m2 [facility] Height 2024-10-14 00:00:00 57 [in_i] [facility] BP Diastolic 2024-10-14 00:00:00 62 mm[Hg] [facility] Body Weight 2024-10-14 00:00:00 106 [lb_av] [facility] BP Systolic 2024-10-14 00:00:00 148 mm[Hg] [facility] Systolic blood pressure 2024-09-15 18:45:00 119 mm[Hg] [facility] Diastolic blood pressure 2024-09-15 18:45:00 50 mm[Hg] [facility] Heart rate 2024-09-15 18:45:00 60 /min [facility] Body temperature 2024-09-15 18:45:[address] [facility] Respiratory rate 2024-09-15 18:45:00 16 /min [facility] Body weight 2024-09-15 18:45:[address] [facility] BMI 2024-09-15 18:45:00 22.72 kg/m2 [facility] Oxygen saturation in Arterial blood by Pulse oximetry 2024-09-15 18:45:00 97 /min [facility] BP Systolic 2024-09-09 00:00:00 142 mm[Hg] [facility] Body Weight 2024-09-09 00:00:00 107 [lb_av] [facility] BMI (Body Mass Index) 2024-09-09 00:00:00 23.2 kg/m2 [facility] BP Diastolic 2024-09-09 00:00:00 55 mm[Hg] [facility] Height 2024-09-09 00:00:00 57 [in_i] [facility] Systolic blood pressure 2024-08-18 19:19:00 121 mm[Hg] [facility] Diastolic blood pressure 2024-08-18 19:19:00 57 mm[Hg] [facility] Heart rate 2024-08-18 19:19:00 60 /min [facility] Body temperature 2024-08-18 19:19:[address] [facility] Body height 2024-08-18 19:19:[address] [facility] Body weight 2024-08-18 19:19:[address] [facility] BMI 2024-08-18 19:19:00 22.51 kg/m2 [facility] Oxygen saturation in Arterial blood by Pulse oximetry 2024-08-18 19:19:00 98 /min [facility] Systolic blood pressure 2024-08-15 06:00:00 125 mm[Hg] [facility] Diastolic blood pressure 2024-08-15 06:00:00 49 mm[Hg] [facility] Heart rate 2024-08-15 06:00:00 63 /min [facility] Respiratory rate 2024-08-15 06:00:00 16 /min [facility] Oxygen saturation in Arterial blood by Pulse oximetry 2024-08-15 06:00:00 96 /min [facility] Body temperature 2024-08-15 04:04:[address] [facility] Body height 2024-08-15 04:04:[address] [facility] Body weight 2024-08-15 04:04:[address] [facility] BMI 2024-08-15 04:04:00 23.40 kg/m2 [facility] Height 2024-08-07 00:00:00 57 [in_i] [facility] 2024-07-11 08:45:00 57 [in_i] [facility] weight 2024-07-11 08:45:00 107.4 [lb_av] [facility] temperature 2024-07-11 08:45:00 96.8 [degF] [facility] bmi 2024-07-11 08:45:00 23.24 kg/m2 [facility] oximetry 2024-07-11 08:45:00 99 % [facility] respiratory rate 2024-07-11 08:45:00 17 /min [facility] blood pressure systolic 2024-07-11 08:45:00 128 mm[Hg] [facility] blood pressure diastolic 2024-07-11 08:45:00 68 mm[Hg] [facility] Systolic blood pressure 2024-06-26 15:08:00 144 mm[Hg] [facility] Diastolic blood pressure 2024-06-26 15:08:00 69 mm[Hg] [facility] Heart rate 2024-06-26 15:06:00 61 /min [facility] Respiratory rate 2024-06-26 15:06:00 18 /min [facility] Body height 2024-06-26 15:06:[address] [facility] Body weight 2024-06-26 15:06:[address] [facility] BMI 2024-06-26 15:06:00 22.81 kg/m2 [facility] Oxygen saturation in Arterial blood by Pulse oximetry 2024-06-26 15:06:00 100 /min [facility] Height 2024-06-24 00:00:00 57 [in_i] [facility] Systolic blood pressure 2024-06-13 15:41:00 133 mm[Hg] [facility] Diastolic blood pressure 2024-06-13 15:41:00 54 mm[Hg] [facility] Heart rate 2024-06-13 15:41:00 60 /min [facility] Respiratory rate 2024-06-13 15:41:00 16 /min [facility] Body height 2024-06-13 15:41:[address] [facility] Body weight 2024-06-13 15:41:[address] [facility] BMI 2024-06-13 15:41:00 22.46 kg/m2 [facility] Oxygen saturation in Arterial blood by Pulse oximetry 2024-06-13 15:41:00 98 /min [facility] Height 2024-05-21 00:00:00 57 [in_i] [facility] BMI (Body Mass Index) 2024-05-21 00:00:00 23.2 kg/m2 [facility] BP Systolic 2024-05-21 00:00:00 109 mm[Hg] [facility] BP Diastolic 2024-05-21 00:00:00 54 mm[Hg] [facility] Body Weight 2024-05-21 00:00:00 107.4 [lb_av] [facility] Systolic blood pressure 2024-05-12 16:40:00 131 mm[Hg] [facility] Diastolic blood pressure 2024-05-12 16:40:00 58 mm[Hg] [facility] Heart rate 2024-05-12 16:40:00 60 /min [facility] Respiratory rate 2024-05-12 16:40:00 20 /min [facility] Body height 2024-05-12 16:40:[address] [facility] Body weight 2024-05-12 16:40:[address] [facility] BMI 2024-05-12 16:40:00 23.54 kg/m2 [facility] Oxygen saturation in Arterial blood by Pulse oximetry 2024-05-12 16:40:00 98 /min [facility] Systolic blood pressure 2024-05-10 18:22:00 116 mm[Hg] [facility] Diastolic blood pressure 2024-05-10 18:22:00 55 mm[Hg] [facility] Heart rate 2024-05-10 18:22:00 61 /min [facility] Body temperature 2024-05-10 18:22:[address] [facility] Respiratory rate 2024-05-10 18:22:00 12 /min [facility] Oxygen saturation in Arterial blood by Pulse oximetry 2024-05-10 18:22:00 99 /min [facility] Body height 2024-05-10 15:52:[address] [facility] Body weight 2024-05-10 15:52:[address] [facility] BMI 2024-05-10 15:52:00 20.60 kg/m2 [facility] height 2024-04-18 15:20:00 57 [in_i] [facility] weight 2024-04-18 15:20:00 105 [lb_av] [facility] temperature 2024-04-18 15:20:00 97.5 [degF] [facility] bmi 2024-04-18 15:20:00 22.72 kg/m2 [facility] oximetry 2024-04-18 15:20:00 97 % [facility] respiratory rate 2024-04-18 15:20:00 17 /min [facility] blood pressure systolic 2024-04-18 15:20:00 129 mm[Hg] [facility] blood pressure diastolic 2024-04-18 15:20:00 60 mm[Hg] [facility] Systolic blood pressure 2024-03-17 18:02:00 109 mm[Hg] [facility] Diastolic blood pressure 2024-03-17 18:02:00 42 mm[Hg] [facility] Heart rate 2024-03-17 18:02:00 60 /min [facility] Body temperature 2024-03-17 18:02:[address] [facility] Body weight 2024-03-17 18:02:[address] [facility] BMI 2024-03-17 18:02:00 23.90 kg/m2 [facility] Oxygen saturation in Arterial blood by Pulse oximetry 2024-03-17 18:02:00 98 /min [facility] height 2024-03-07 10:00:00 57 [in_i] [facility] weight 2024-03-07 10:00:00 106 [lb_av] [facility] temperature 2024-03-07 10:00:00 97.2 [degF] [facility] bmi 2024-03-07 10:00:00 22.94 kg/m2 [facility] oximetry 2024-03-07 10:00:00 96 % [facility] blood pressure systolic 2024-03-07 10:00:00 84 mm[Hg] [facility] blood pressure diastolic 2024-03-07 10:00:00 46 mm[Hg] [facility] height 2024-03-07 10:00:00 57 [in_i] [facility] weight 2024-03-07 10:00:00 106 [lb_av] [facility] temperature 2024-03-07 10:00:00 97.2 [degF] [facility] bmi 2024-03-07 10:00:00 22.94 kg/m2 [facility] oximetry 2024-03-07 10:00:00 96 % [facility] blood pressure systolic 2024-03-07 10:00:00 84 mm[Hg] [facility] blood pressure diastolic 2024-03-07 10:00:00 46 mm[Hg] [facility] Systolic blood pressure 2024-02-11 18:25:00 138 mm[Hg] [facility] Diastolic blood pressure 2024-02-11 18:25:00 59 mm[Hg] [facility] Heart rate 2024-02-11 18:25:00 60 /min [facility] Body temperature 2024-02-11 18:25:[address] [facility] Respiratory rate 2024-02-11 18:25:00 20 /min [facility] Body height 2024-02-11 18:25:[address] [facility] Body weight 2024-02-11 18:25:[address] [facility] BMI 2024-02-11 18:25:00 24.21 kg/m2 [facility] Oxygen saturation in Arterial blood by Pulse oximetry 2024-02-11 18:25:00 98 /min [facility] Systolic blood pressure 2024-01-14 18:26:00 144 mm[Hg] [facility] Diastolic blood pressure 2024-01-14 18:26:00 55 mm[Hg] [facility] Heart rate 2024-01-14 18:26:00 63 /min [facility] Body temperature 2024-01-14 18:25:[address] [facility] Respiratory rate 2024-01-14 18:25:00 18 /min [facility] Body height 2024-01-14 18:25:[address] [facility] Body weight 2024-01-14 18:25:[address] [facility] BMI 2024-01-14 18:25:00 24.80 kg/m2 [facility] Oxygen saturation in Arterial blood by Pulse oximetry 2024-01-14 18:25:00 99 /min [facility] Systolic blood pressure 2024-01-04 16:23:00 116 mm[Hg] [facility] Diastolic blood pressure 2024-01-04 16:23:00 52 mm[Hg] [facility] Heart rate 2024-01-04 16:23:00 60 /min [facility] Body temperature 2024-01-04 16:23:[address] [facility] Respiratory rate 2024-01-04 16:23:00 17 /min [facility] Body height 2024-01-04 16:23:[address] [facility] Body weight 2024-01-04 16:23:[address] [facility] BMI 2024-01-04 16:23:00 23.00 kg/m2 [facility] Oxygen saturation in Arterial blood by Pulse oximetry 2024-01-04 16:23:00 98 /min [facility] Systolic blood pressure 2023-12-28 18:15:00 112 mm[Hg] patient states this is her norm [facility] Diastolic blood pressure 2023-12-28 18:15:00 44 mm[Hg] patient states this is her norm [facility] Heart rate 2023-12-28 18:15:00 65 /min [facility] Respiratory rate 2023-12-28 18:15:00 18 /min [facility] Oxygen saturation in Arterial blood by Pulse oximetry 2023-12-28 18:15:00 98 /min [facility] Body temperature 2023-12-28 17:12:[address] [facility] Body height 2023-12-28 12:32:[address] [facility] Body weight 2023-12-28 12:32:[address] [facility] BMI 2023-12-28 12:32:00 22.99 kg/m2 [facility] Respiratory rate 2023-12-28 12:38:00 16 /min [facility] Systolic blood pressure 2023-12-28 12:32:00 131 mm[Hg] [facility] Diastolic blood pressure 2023-12-28 12:32:00 64 mm[Hg] [facility] Heart rate 2023-12-28 12:32:00 60 /min [facility] Body temperature 2023-12-28 12:32:[address] [facility] Body height 2023-12-28 12:32:[address] [facility] Body weight 2023-12-28 12:32:[address] [facility] BMI 2023-12-28 12:32:00 22.99 kg/m2 [facility] Oxygen saturation in Arterial blood by Pulse oximetry 2023-12-28 12:32:00 100 /min [facility] Systolic blood pressure 2023-12-27 18:29:00 107 mm[Hg] [facility] Diastolic blood pressure 2023-12-27 18:29:00 48 mm[Hg] [facility] Heart rate 2023-12-27 18:29:00 60 /min [facility] Body temperature 2023-12-27 18:29:[address] [facility] Respiratory rate 2023-12-27 18:29:00 17 /min [facility] Body height 2023-12-27 18:29:[address] [facility] Body weight 2023-12-27 18:29:[address] [facility] BMI 2023-12-27 18:29:00 23.13 kg/m2 [facility] Oxygen saturation in Arterial blood by Pulse oximetry 2023-12-27 18:29:00 96 /min [facility] Systolic blood pressure 2023-12-03 18:57:00 115 mm[Hg] [facility] Diastolic blood pressure 2023-12-03 18:57:00 46 mm[Hg] [facility] Heart rate 2023-12-03 18:57:00 60 /min [facility] Respiratory rate 2023-12-03 18:57:00 18 /min [facility] Body height 2023-12-03 18:57:[address] [facility] Body weight 2023-12-03 18:57:[address] [facility] BMI 2023-12-03 18:57:00 22.94 kg/m2 [facility] Oxygen saturation in Arterial blood by Pulse oximetry 2023-12-03 18:57:00 99 /min [facility] height 2023-11-09 09:30:00 57 [in_i] [facility] weight 2023-11-09 09:30:00 106.8 [lb_av] [facility] temperature 2023-11-09 09:30:00 97 [degF] [facility] bmi 2023-11-09 09:30:00 23.11 kg/m2 [facility] oximetry 2023-11-09 09:30:00 98 % [facility] blood pressure systolic 2023-11-09 09:30:00 102 mm[Hg] [facility] blood pressure diastolic 2023-11-09 09:30:00 52 mm[Hg] [facility] height 2023-11-09 09:40:00 57 [in_i] [facility] weight 2023-11-09 09:40:00 106.8 [lb_av] [facility] temperature 2023-11-09 09:40:00 97 [degF] [facility] bmi 2023-11-09 09:40:00 23.11 kg/m2 [facility] oximetry 2023-11-09 09:40:00 98 % [facility] blood pressure systolic 2023-11-09 09:40:00 102 mm[Hg] [facility] blood pressure diastolic 2023-11-09 09:40:00 52 mm[Hg] [facility] Systolic blood pressure 2023-11-05 15:54:00 109 mm[Hg] [facility] Diastolic blood pressure 2023-11-05 15:54:00 55 mm[Hg] [facility] Heart rate 2023-11-05 15:54:00 62 /min [facility] Body temperature 2023-11-05 15:54:[address] [facility] Respiratory rate 2023-11-05 15:54:00 18 /min [facility] Body height 2023-11-05 15:54:[address] [facility] Body weight 2023-11-05 15:54:[address] [facility] BMI 2023-11-05 15:54:00 22.98 kg/m2 [facility] Systolic blood pressure 2023-10-29 19:34:00 128 mm[Hg] [facility] Diastolic blood pressure 2023-10-29 19:34:00 54 mm[Hg] [facility] Heart rate 2023-10-29 19:34:00 70 /min [facility] Body temperature 2023-10-29 19:34:[address] [facility] Respiratory rate 2023-10-29 19:34:00 20 /min [facility] Body height 2023-10-29 19:34:[address] [facility] Body weight 2023-10-29 19:34:[address] [facility] BMI 2023-10-29 19:34:00 24.44 kg/m2 [facility] Oxygen saturation in Arterial blood by Pulse oximetry 2023-10-29 19:34:00 97 /min [facility] Systolic blood pressure 2023-09-21 17:00:00 115 mm[Hg] [facility] Diastolic blood pressure 2023-09-21 17:00:00 41 mm[Hg] [facility] Heart rate 2023-09-21 17:00:00 59 /min [facility] Respiratory rate 2023-09-21 17:00:00 15 /min [facility] Oxygen saturation in Arterial blood by Pulse oximetry 2023-09-21 17:00:00 98 /min [facility] Body height 2023-09-18 19:51:[address] [facility] Body weight 2023-09-18 19:51:[address] [facility] BMI 2023-09-18 19:51:00 21.01 kg/m2 [facility] Respiratory rate 2023-09-21 14:53:19 0 /min [facility] Systolic blood pressure 2023-09-21 13:43:43 155 mm[Hg] [facility] Diastolic blood pressure 2023-09-21 13:43:43 57 mm[Hg] [facility] Oxygen saturation in Arterial blood by Pulse oximetry 2023-09-21 13:43:43 100 /min [facility] Body height 2023-09-18 19:51:[address] [facility] Body weight 2023-09-18 19:51:[address] [facility] BMI 2023-09-18 19:51:00 21.01 kg/m2 [facility] Systolic blood pressure 2023-09-17 21:16:00 128 mm[Hg] [facility] Diastolic blood pressure 2023-09-17 21:16:00 49 mm[Hg] [facility] Heart rate 2023-09-17 21:16:00 56 /min [facility] Respiratory rate 2023-09-17 21:16:00 18 /min [facility] Body height 2023-09-17 21:16:[address] [facility] Body weight 2023-09-17 21:16:[address] [facility] BMI 2023-09-17 21:16:00 21.01 kg/m2 [facility] Oxygen saturation in Arterial blood by Pulse oximetry 2023-09-17 21:16:00 97 /min [facility] Systolic blood pressure 2023-08-30 16:28:00 119 mm[Hg] [facility] Diastolic blood pressure 2023-08-30 16:28:00 56 mm[Hg] [facility] Heart rate 2023-08-30 16:28:00 50 /min [facility] Respiratory rate 2023-08-30 16:28:00 16 /min [facility] Body height 2023-08-30 16:28:[address] [facility] Body weight 2023-08-30 16:28:[address] [facility] BMI 2023-08-30 16:28:00 23.68 kg/m2 [facility] Oxygen saturation in Arterial blood by Pulse oximetry 2023-08-30 16:28:00 98 /min [facility] height 2023-08-10 11:20:00 57 [in_i] [facility] weight 2023-08-10 11:20:00 105.4 [lb_av] [facility] temperature 2023-08-10 11:20:00 98 [degF] [facility] bmi 2023-08-10 11:20:00 22.81 kg/m2 [facility] [facility] oximetry 2023-08-10 11:20:00 98 % [facility] blood pressure systolic 2023-08-10 11:20:00 110 mm[Hg] [facility] blood pressure diastolic 2023-08-10 11:20:00 62 mm[Hg] [facility] Systolic blood pressure 2023-06-29 16:22:00 122 mm[Hg] [facility] Diastolic blood pressure 2023-06-29 16:22:00 58 mm[Hg] [facility] Heart rate 2023-06-29 16:22:00 66 /min [facility] Body height 2023-06-29 16:22:[address] [facility] Body weight 2023-06-29 16:22:[address] [facility] BMI 2023-06-29 16:22:00 23.68 kg/m2 [facility] Oxygen saturation in Arterial blood by Pulse oximetry 2023-06-29 16:22:00 95 /min [facility] Systolic blood pressure 2023-06-01 21:53:00 163 mm[Hg] [facility] Diastolic blood pressure 2023-06-01 21:53:00 66 mm[Hg] [facility] Heart rate 2023-06-01 21:53:00 65 /min [facility] Respiratory rate 2023-06-01 21:53:00 20 /min [facility] Body height 2023-06-01 21:53:[address] [facility] Body weight 2023-06-01 21:53:[address] [facility] BMI 2023-06-01 21:53:00 21.86 kg/m2 [facility] Oxygen saturation in Arterial blood by Pulse oximetry 2023-06-01 21:53:00 99 /min [facility] Systolic blood pressure 2023-05-19 18:32:00 157 mm[Hg] [facility] Diastolic blood pressure 2023-05-19 18:32:00 60 mm[Hg] [facility] Heart rate 2023-05-19 18:32:00 54 /min [facility] Body temperature 2023-05-19 18:32:[address] [facility] Respiratory rate 2023-05-19 18:32:00 20 /min [facility] Oxygen saturation in Arterial blood by Pulse oximetry 2023-05-19 18:32:00 99 /min [facility] Body height 2023-05-18 21:41:[address] [facility] Body weight 2023-05-18 21:41:[address] [facility] BMI 2023-05-18 21:41:00 22.05 kg/m2 [facility] Systolic blood pressure 2023-05-17 13:35:00 119 mm[Hg] [facility] Diastolic blood pressure 2023-05-17 13:35:00 59 mm[Hg] [facility] Heart rate 2023-05-17 13:35:00 54 /min [facility] Respiratory rate 2023-05-17 13:35:00 17 /min [facility] Body height 2023-05-17 13:35:[address] [facility] Body weight 2023-05-17 13:35:[address] [facility] BMI 2023-05-17 13:35:00 22.33 kg/m2 [facility] Oxygen saturation in Arterial blood by Pulse oximetry 2023-05-17 13:35:00 98 /min [facility] Systolic blood pressure 2023-05-07 13:35:00 158 mm[Hg] [facility] Diastolic blood pressure 2023-05-07 13:35:00 64 mm[Hg] [facility] Heart rate 2023-05-07 13:31:00 52 /min [facility] Respiratory rate 2023-05-07 13:31:00 18 /min [facility] Body height 2023-05-07 13:31:[address] [facility] Body weight 2023-05-07 13:31:[address] [facility] BMI 2023-05-07 13:31:00 22.51 kg/m2 [facility] height 2023-05-04 11:20:00 57 [in_i] [facility] weight 2023-05-04 11:20:00 104.0 [lb_av] [facility] temperature 2023-05-04 11:20:00 98.2 [degF] [facility] bmi 2023-05-04 11:20:00 22.5 kg/m2 [facility] oximetry 2023-05-04 11:20:00 98 % [facility] respiratory rate 2023-05-04 11:20:00 18 /min [facility] blood pressure systolic 2023-05-04 11:20:00 124 mm[Hg] [facility] blood pressure diastolic 2023-05-04 11:20:00 69 mm[Hg] [facility] Systolic blood pressure 2023-04-20 14:31:00 146 mm[Hg] [facility] Diastolic blood pressure 2023-04-20 14:31:00 53 mm[Hg] [facility] Heart rate 2023-04-20 14:31:00 55 /min [facility] Oxygen saturation in Arterial blood by Pulse oximetry 2023-04-20 14:31:00 97 /min [facility] Body temperature 2023-04-20 14:28:[address] [facility] Respiratory rate 2023-04-20 14:28:00 17 /min [facility] Body height 2023-04-20 14:28:[address] [facility] Body weight 2023-04-20 14:28:[address] [facility] BMI 2023-04-20 14:28:00 22.72 kg/m2 [facility] Systolic blood pressure 2023-04-10 20:41:00 157 mm[Hg] [facility] Diastolic blood pressure 2023-04-10 20:41:00 63 mm[Hg] [facility] Heart rate 2023-04-10 20:41:00 59 /min [facility] Body temperature 2023-04-10 20:41:[address] [facility] Respiratory rate 2023-04-10 20:41:00 18 /min [facility] Oxygen saturation in Arterial blood by Pulse oximetry 2023-04-10 20:41:00 97 /min [facility] Body height 2023-04-10 10:35:[address] [facility] Body weight 2023-04-10 10:35:[address] [facility] BMI 2023-04-10 10:35:00 22.51 kg/m2 [facility] Systolic blood pressure 2023-04-07 16:29:00 115 mm[Hg] [facility] Diastolic blood pressure 2023-04-07 16:29:00 54 mm[Hg] [facility] Heart rate 2023-04-07 16:29:00 58 /min [facility] Body temperature 2023-04-07 16:29:[address] [facility] Respiratory rate 2023-04-07 16:29:00 18 /min [facility] Oxygen saturation in Arterial blood by Pulse oximetry 2023-04-07 16:29:00 96 /min [facility] Body weight 2023-04-07 08:24:[address] [facility] BMI 2023-04-07 08:24:00 23.60 kg/m2 [facility] Body height 2023-04-06 19:32:[address] [facility] Systolic blood pressure 2023-04-06 16:06:31 174 mm[Hg] [facility] Diastolic blood pressure 2023-04-06 16:06:31 73 mm[Hg] [facility] Respiratory rate 2023-04-06 16:06:31 17 /min [facility] Oxygen saturation in Arterial blood by Pulse oximetry 2023-04-06 16:06:31 100 /min [facility] Heart rate 2023-04-06 15:22:35 56 /min [facility] Body weight 2023-04-06 12:44:[address] [facility] BMI 2023-04-06 12:44:00 23.60 kg/m2 [facility] Systolic blood pressure 2023-03-07 15:50:00 155 mm[Hg] [facility] Diastolic blood pressure 2023-03-07 15:50:00 58 mm[Hg] [facility] Heart rate 2023-03-07 15:43:00 57 /min [facility] Body temperature 2023-03-07 15:43:[address] [facility] Respiratory rate 2023-03-07 15:43:00 18 /min [facility] Body height 2023-03-07 15:43:[address] [facility] Body weight 2023-03-07 15:43:[address] [facility] BMI 2023-03-07 15:43:00 22.29 kg/m2 [facility] Oxygen saturation in Arterial blood by Pulse oximetry 2023-03-07 15:43:00 99 /min [facility] Heart rate 2023-03-06 07:32:00 62 /min [facility] Oxygen saturation in Arterial blood by Pulse oximetry 2023-03-06 07:32:00 98 /min [facility] Systolic blood pressure 2023-03-06 07:00:00 162 mm[Hg] [facility] Diastolic blood pressure 2023-03-06 07:00:00 57 mm[Hg] [facility] Respiratory rate 2023-03-06 07:00:00 17 /min [facility] Body temperature 2023-03-06 03:54:[address] [facility] Body height 2023-03-06 03:54:[address] [facility] Body weight 2023-03-06 03:54:[address] [facility] BMI 2023-03-06 03:54:00 22.29 kg/m2 [facility] Systolic blood pressure 2023-02-12 17:31:00 166 mm[Hg] [facility] Diastolic blood pressure 2023-02-12 17:31:00 55 mm[Hg] [facility] Heart rate 2023-02-12 17:31:00 60 /min [facility] Body temperature 2023-02-12 17:31:[address] [facility] Respiratory rate 2023-02-12 17:31:00 18 /min [facility] Body height 2023-02-12 17:31:[address] [facility] Body weight 2023-02-12 17:31:[address] [facility] BMI 2023-02-12 17:31:00 21.95 kg/m2 [facility] Oxygen saturation in Arterial blood by Pulse oximetry 2023-02-12 17:31:00 99 /min [facility] height 2023-02-02 10:30:00 57 [in_i] [facility] weight 2023-02-02 10:30:00 105.3 [lb_av] [facility] temperature 2023-02-02 10:30:00 96.3 [degF] [facility] bmi 2023-02-02 10:30:00 22.78 kg/m2 [facility] oximetry 2023-02-02 10:30:00 97 % [facility] respiratory rate 2023-02-02 10:30:00 17 /min [facility] blood pressure systolic 2023-02-02 10:30:00 130 mm[Hg] [facility] blood pressure diastolic 2023-02-02 10:30:00 67 mm[Hg] [facility] Body weight 2022-12-19 12:32:[address] [facility] BMI 2022-12-19 12:32:00 22.29 kg/m2 [facility] Body weight 2022-12-19 12:32:[address] [facility] BMI 2022-12-19 12:32:00 22.29 kg/m2 [facility] Systolic blood pressure 2022-11-16 13:53:00 114 mm[Hg] [facility] Diastolic blood pressure 2022-11-16 13:53:00 36 mm[Hg] [facility] Heart rate 2022-11-16 13:53:00 59 /min [facility] Oxygen saturation in Arterial blood by Pulse oximetry 2022-11-16 13:53:00 97 /min [facility] Body temperature 2022-11-16 13:51:[address] [facility] Respiratory rate 2022-11-16 13:51:00 17 /min [facility] Body weight 2022-11-16 13:51:[address] [facility] BMI 2022-11-16 13:51:00 22.44 kg/m2 [facility] height 2022-11-03 08:50:00 57 [in_i] [facility] weight 2022-11-03 08:50:00 102.6 [lb_av] [facility] temperature 2022-11-03 08:50:00 97.2 [degF] [facility] bmi 2022-11-03 08:50:00 22.2 kg/m2 [facility] oximetry 2022-11-03 08:50:00 99 % [facility] respiratory rate 2022-11-03 08:50:00 16 /min [facility] blood pressure systolic 2022-11-03 08:50:00 126 mm[Hg] [facility] blood pressure diastolic 2022-11-03 08:50:00 64 mm[Hg] [facility] height 2022-11-03 08:50:00 57 [in_i] [facility] weight 2022-11-03 08:50:00 102.6 [lb_av] [facility] temperature 2022-11-03 08:50:00 97.2 [degF] [facility] bmi 2022-11-03 08:50:00 22.2 kg/m2 [facility] oximetry 2022-11-03 08:50:00 99 % [facility] respiratory rate 2022-11-03 08:50:00 16 /min [facility] blood pressure systolic 2022-11-03 08:50:00 126 mm[Hg] [facility] blood pressure diastolic 2022-11-03 08:50:00 64 mm[Hg] [facility] Systolic blood pressure 2022-10-13 15:08:00 138 mm[Hg] [facility] Diastolic blood pressure 2022-10-13 15:08:00 51 mm[Hg] [facility] Heart rate 2022-10-13 15:08:00 55 /min [facility] Respiratory rate 2022-10-13 15:08:00 20 /min [facility] Body weight 2022-10-13 15:08:[address] [facility] BMI 2022-10-13 15:08:00 25.97 kg/m2 [facility] Oxygen saturation in Arterial blood by Pulse oximetry 2022-10-13 15:08:00 98 /min [facility] Systolic blood pressure 2022-08-24 21:29:00 119 mm[Hg] [facility] Diastolic blood pressure 2022-08-24 21:29:00 50 mm[Hg] [facility] Heart rate 2022-08-24 21:29:00 71 /min [facility] Body temperature 2022-08-24 21:29:[address] [facility] Respiratory rate 2022-08-24 21:29:00 17 /min [facility] Body height 2022-08-24 21:29:[address] [facility] Body weight 2022-08-24 21:29:[address] [facility] BMI 2022-08-24 21:29:00 22.07 kg/m2 [facility] Oxygen saturation in Arterial blood by Pulse oximetry 2022-08-24 21:29:00 98 /min [facility] Systolic blood pressure 2022-08-20 03:00:00 114 mm[Hg] [facility] Diastolic blood pressure 2022-08-20 03:00:00 53 mm[Hg] [facility] Heart rate 2022-08-20 03:00:00 70 /min [facility] Respiratory rate 2022-08-20 03:00:00 19 /min [facility] Oxygen saturation in Arterial blood by Pulse oximetry 2022-08-20 03:00:00 95 /min [facility] Body temperature 2022-08-20 00:44:[address] [facility] Body height 2022-08-20 00:44:[address] [facility] Body weight 2022-08-20 00:44:[address] [facility] BMI 2022-08-20 00:44:00 22.07 kg/m2 [facility] height 2022-08-11 08:40:00 57 [in_i] [facility] weight 2022-08-11 08:40:00 101.9 [lb_av] [facility] temperature 2022-08-11 08:40:00 97.1 [degF] [facility] bmi 2022-08-11 08:40:00 22.05 kg/m2 [facility] oximetry 2022-08-11 08:40:00 98 % [facility] respiratory rate 2022-08-11 08:40:00 16 /min [facility] blood pressure systolic 2022-08-11 08:40:00 138 mm[Hg] [facility] blood pressure diastolic 2022-08-11 08:40:00 63 mm[Hg] [facility] Systolic blood pressure 2022-07-12 21:31:00 117 mm[Hg] [facility] Diastolic blood pressure 2022-07-12 21:31:00 50 mm[Hg] [facility] Heart rate 2022-07-12 21:31:00 67 /min [facility] Body temperature 2022-07-12 21:31:[address] [facility] Respiratory rate 2022-07-12 21:31:00 18 /min [facility] Oxygen saturation in Arterial blood by Pulse oximetry 2022-07-12 21:31:00 97 /min [facility] Body weight 2022-07-12 12:00:[address] [facility] BMI 2022-07-12 12:00:00 22.37 kg/m2 [facility] Body height 2022-07-11 22:34:[address] [facility] Body weight 2022-07-11 13:00:[address] [facility] BMI 2022-07-11 13:00:00 22.37 kg/m2 [facility] Systolic blood pressure 2022-04-18 16:25:00 125 mm[Hg] [facility] Diastolic blood pressure 2022-04-18 16:25:00 49 mm[Hg] [facility] Heart rate 2022-04-18 16:25:00 58 /min [facility] Respiratory rate 2022-04-18 16:25:00 17 /min [facility] Oxygen saturation in Arterial blood by Pulse oximetry 2022-04-18 16:25:00 95 /min [facility] Body weight 2022-04-18 14:00:[address] [facility] BMI 2022-04-18 14:00:00 21.47 kg/m2 [facility] Systolic blood pressure 2022-04-18 13:25:05 131 mm[Hg] [facility] Diastolic blood pressure 2022-04-18 13:25:05 52 mm[Hg] [facility] Respiratory rate 2022-04-18 13:25:05 13 /min [facility] Oxygen saturation in Arterial blood by Pulse oximetry 2022-04-18 13:25:05 100 /min [facility] height 2022-03-09 09:30:00 57 [in_i] [facility] weight 2022-03-09 09:30:00 100 [lb_av] [facility] temperature 2022-03-09 09:30:00 98 [degF] [facility] bmi 2022-03-09 09:30:00 21.64 kg/m2 [facility] blood pressure systolic 2022-03-09 09:30:00 142 mm[Hg] [facility] blood pressure diastolic 2022-03-09 09:30:00 75 mm[Hg] [facility] Diastolic blood pressure 2022-03-06 13:40:00 60 mm[Hg] [facility] Heart rate 2022-03-06 13:40:00 61 /min [facility] Oxygen saturation in Arterial blood by Pulse oximetry 2022-03-06 13:40:00 99 /min [facility] Systolic blood pressure 2022-03-06 13:40:00 157 mm[Hg] [facility] Body temperature 2022-03-06 13:39:[address] [facility] Respiratory rate 2022-03-06 13:39:00 16 /min [facility] Body weight 2022-03-06 13:39:[address] [facility] BMI 2022-03-06 13:39:00 21.77 kg/m2 [facility] height 2021-11-09 08:50:00 57 [in_i] [facility] weight 2021-11-09 08:50:00 99.3 [lb_av] [facility] temperature 2021-11-09 08:50:00 97.0 [degF] [facility] bmi 2021-11-09 08:50:00 21.49 kg/m2 [facility] oximetry 2021-11-09 08:50:00 95 % [facility] respiratory rate 2021-11-09 08:50:00 16 /min [facility] blood pressure systolic 2021-11-09 08:50:00 138 mm[Hg] [facility] blood pressure diastolic 2021-11-09 08:50:00 77 mm[Hg] [facility] height 2021-11-09 09:00:00 57 [in_i] [facility] weight 2021-11-09 09:00:00 99.3 [lb_av] [facility] temperature 2021-11-09 09:00:00 97 [degF] [facility] bmi 2021-11-09 09:00:00 21.49 kg/m2 [facility] oximetry 2021-11-09 09:00:00 95 % [facility] respiratory rate 2021-11-09 09:00:00 16 /min [facility] blood pressure systolic 2021-11-09 09:00:00 138 mm[Hg] [facility] blood pressure diastolic 2021-11-09 09:00:00 77 mm[Hg] [facility] height 2021-07-27 09:30:00 57 [in_i] [facility] weight 2021-07-27 09:30:00 100.4 [lb_av] [facility] temperature 2021-07-27 09:30:00 97.4 [degF] [facility] bmi 2021-07-27 09:30:00 21.72 kg/m2 [facility] oximetry 2021-07-27 09:30:00 99 % [facility] respiratory rate 2021-07-27 09:30:00 17 /min [facility] blood pressure systolic 2021-07-27 09:30:00 134 mm[Hg] [facility] blood pressure diastolic 2021-07-27 09:30:00 62 mm[Hg] [facility] height 2021-03-24 09:30:00 57 [in_i] [facility] weight 2021-03-24 09:30:00 104.2 [lb_av] [facility] temperature 2021-03-24 09:30:00 97.0 [degF] [facility] bmi 2021-03-24 09:30:00 22.55 kg/m2 [facility] oximetry 2021-03-24 09:30:00 98 % [facility] respiratory rate 2021-03-24 09:30:00 16 /min [facility] blood pressure systolic 2021-03-24 09:30:00 136 mm[Hg] [facility] blood pressure diastolic 2021-03-24 09:30:00 60 mm[Hg] [facility] Procedures Procedure Date / Time Performed Performing Clinician Source XR HUMERUS 2 VW LEFT 2024-11-29 16:28:[address] [facility] XR SHOULDER 2+ VW LEFT 2024-11-29 16:28:[address] [facility] CARDIAC DEVICE CHECK - REMOTE - PACEMAKER 2024-11-25 05:01:[address] [facility] CARDIAC DEVICE CHECK - REMOTE - PACEMAKER 2024-10-14 12:40:[address] [facility] Transurethral Cystoscopy 2024-09-09 00:00:00 [facility] DUPLEX VENOUS ARM LEFT - BY VASCULAR LAB 2024-08-29 15:37:[address] [facility] XR CHEST 1 VW 2024-08-15 04:39:[address] [facility] LIPASE 2024-08-15 04:22:[address] [facility] TROPONIN I 2024-08-15 04:22:[address] [facility] COMP. METABOLIC PANEL (57100) 2024-08-15 04:22:[address] [facility] CBC WITH DIFF 2024-08-15 04:22:[address] [facility] URINALYSIS 2024-08-15 04:22:[address] [facility] JAREN EXTREMITY SINGLE LEVEL - BY VASCULAR LAB 2024-07-11 20:16:[address] [facility] CAROTID DUPLEX BILATERAL - BY VASCULAR LAB 2024-07-11 20:16:[address] [facility] LOWER EXTREMITY ARTERIAL DUPLEX BILATERAL - BY VASCULAR LAB 2024-07-11 20:16:[address] [facility] FLU VACC(),65+YR,0.5 ML,IM,ADJUVANTED,TIV(FLUAD) 2024-06-13 15:48:[address] [facility] US TRANSVAGINAL 2024-05-30 00:00:00 [facility] EKG-12 LEAD 2024-05-10 18:18:[address] [facility] TROPONIN I 2024-05-10 17:21:[address] [facility] MAGNESIUM 2024-05-10 16:00:[address] [facility] TROPONIN I 2024-05-10 16:00:[address] [facility] COMP. METABOLIC PANEL (00569) 2024-05-10 16:00:[address] [facility] CBC WITH DIFF 2024-05-10 16:00:[address] [facility] N-TERMINAL PRO-BNP 2024-05-10 16:00:[address] [facility] JAREN MULTI LEVEL - BY VASCULAR LAB 2024-03-10 16:36:[address] [facility] DUPLEX ARTERIAL LEG RIGHT - BY VASCULAR LAB 2024 16:26:58 Josep Gould [facility] VENOUS REFLUX DUPLEX BILATERAL - BY VASCULAR LAB 2024 16:26:[address] [facility] FL TIME OR (NON-REPORTABLE) 2023-12-28 16:05:[address] [facility] FL TIME OR (NON-REPORTABLE) 2023-12-28 16:05:[address] [facility] [id number] - CHG ANGIOGRAPHY EXTREMITY BILATERAL RS&I 2023-12-28 14:41:[address] [facility] 53227 - CHG AORTOGRAPHY ABDOMINAL SERIALOGRAPHY RS&I 2023-12-28 14:41:[address] [facility] [address]16[address] - CHG US VASC ACCESS SITS VSL PATENCY NDL ENTRY 2023-12-28 14:41:[address] [facility] [address] - [place] SLCTV CATHJ 3RD+ ORD SLCTV ABDL PEL/LXTR [facility] 2023-12-28 14:41:[address] [facility] [address] - [place] SLCT[place] CATHJ EA 2ND+ ORD ABDL PEL/LXTR ART [facility] 2023-12-28 14:41:[address] [facility] [address] - [place] REVSC OPN/PRQ ILIAC ART W/STNT PLMT & ANGIOPLSTY 2023-12-28 14:41:[address] [facility] [address] - [place] REVSC OPN/PRQ FEM/POP W/STNT/ATHRC/ANGIOP [facility] 2023-12-28 14:41:[address] [facility] [address] - [place] REVSC OPN/PRQ TIB/IRASEMA W/STNT/ATHR/ANGIOP [facility] 2023-12-28 14:41:[address] [facility] [address] - [place] THROMBOLYSIS ARTERIAL INFUSION ICRA RS&I INIT [place] 2023-12-28 14:41:[address] POCT GLUCOSE (AUTOMATED) 2023-12-28 12:51:[address] [facility] POCT GLUCOSE (AUTOMATED) 2023-12-28 12:51:[address] [facility] MAGNESIUM 2023-11-09 18:18:[address] [facility] BASIC METABOLIC PANEL (NA, K, CL, CO2, GLUCOSE, BUN, CREATININE, CA) 2023-11-09 18:18:[address] [facility] N-TERMINAL PRO-BNP 2023-11-09 18:18:[address] [facility] CARDIAC CATHETERIZATION 2023-09-21 15:03:13 [facility]EDURE 2023-09-21 15:03:[address] [facility] ELECTROPHYSIOLOGY PROCEDURE 2023-09-21 15:03:13 Rogerio [facility] HB ECG ROUTINE & RHYTHM STRIP 2023-09-21 13:33:27 [facility]EDURE 2023-09-21 06:01:00 Doctor Unassigned, [facility] [facility] CBC WITH DIFF 2023-09-10 14:52:[address] [facility] HB ECG ROUTINE & RHYTHM STRIP 2023-08-30 16:24:12 Rogerio [facility] JAREN EXTREMITY SINGLE LEVEL - BY VASCULAR LAB 2023-06-01 21:15:00 Rogerio [facility] POCT GLUCOSE (AUTOMATED) 2023-05-19 15:16:[address] [facility] MAGNESIUM 2023-05-19 09:32:[address] [facility] THYROID STIMULATING HORMONE 2023-05-19 09:32:00 Yo[facility] BASIC METABOLIC PANEL (NA, K, CL, CO2, GLUCOSE, BUN, CREATININE, CA) 2023-05-19 09:32:00 [facility] VITAMIN B12, LEVEL 2023-05-19 03:57:00 [facility] TROPONIN I 2023-05-19 03:57:00 [facility] IRON PANEL 2023-05-19 03:57:00 [facility] VITAMIN D, 25-OH 2023-05-19 03:57:00 [facility] POCT GLUCOSE (AUTOMATED) 2023-05-19 03:01:[address] [facility] POCT GLUCOSE (AUTOMATED) 2023-05-18 21:43:[address] [facility] XR CHEST 1 VW 2023-05-18 16:45:[address] [facility] TROPONIN I 2023-05-18 16:22:[address] [facility] BASIC METABOLIC PANEL (NA, K, CL, CO2, GLUCOSE, BUN, CREATININE, CA) 2023-05-18 16:22:[address] [facility] CBC WITH DIFF 2023-05-18 16:22:00 Nicol [facility] N-TERMINAL PRO-BNP 2023-05-18 16:22:[address] [facility] HB ECG ROUTINE & RHYTHM STRIP 2023-05-18 15:53:38 Nicol [facility] CONSENT/REFUSAL FOR DIAGNOSIS AND TREATMENT 2023-05-18 15:48:08 Doctor Unassigned, [facility] POCT GLUCOSE (AUTOMATED) 2023-04-10 22:01:00 Abu-Perla Smith [facility] ACTIVATED PARTIAL THRMPLAS KOJO 2023-04-10 19:17:[address] [facility] POCT GLUCOSE (AUTOMATED) 2023-04-10 19:14:00 Abu-Sarah [facility] TROPONIN I 2023-04-10 16:09:[address] [facility] POCT GLUCOSE (AUTOMATED) 2023-04-10 15:28:00 Abu-Sarah [facility] TRANSTHORACIC ECHO (TTE) COMPLETE W/ CONTRAST 2023-04-10 15:14:[address] [facility] POCT GLUCOSE (AUTOMATED) 2023-04-10 12:37:00 [facility] CK (CREATINE KINASE) + MB 2023-04-10 10:59:[address] [facility] MAGNESIUM 2023-04-10 10:59:[address] [facility] TROPONIN I 2023-04-10 10:59:[address] [facility] BASIC METABOLIC PANEL (NA, K, CL, CO2, GLUCOSE, BUN, CREATININE, CA) 2023-04-10 10:59:[address] [facility] CBC WITH DIFF 2023-04-10 10:59:00 [facility] PROTHROMBIN TIME / INR 2023-04-10 10:59:[address] [facility] ACTIVATED PARTIAL THRMPLAS KOJO 2023-04-10 10:59:[address] [facility] POCT GLUCOSE (AUTOMATED) 2023-04-07 17:16:00 Albaeni, [facility] POCT GLUCOSE (AUTOMATED) 2023-04-07 17:16:00 Rell [facility] MAGNESIUM 2023-04-07 13:54:00 Degueure, [facility] BASIC METABOLIC PANEL (NA, K, CL, CO2, GLUCOSE, BUN, CREATININE, CA) 2023-04-07 13:54:00 Degueure, [facility] MAGNESIUM 2023-04-07 13:54:00 Degueure, [facility] BASIC METABOLIC PANEL (NA, K, CL, CO2, GLUCOSE, BUN, CREATININE, CA) 2023-04-07 13:54:00 Deguesuman [facility] POCT GLUCOSE (AUTOMATED) 2023-04-07 13:53:00 Rell [facility] POCT GLUCOSE (AUTOMATED) 2023-04-07 13:53:00 Rell [facility] CBC WITH DIFF 2023-04-07 10:42:00 Degueure, [facility] CBC WITH DIFF 2023-04-07 10:42:00 Deguesuman [facility] POCT GLUCOSE (AUTOMATED) 2023-04-07 03:41:00 Rlel [facility] POCT GLUCOSE (AUTOMATED) 2023-04-07 03:41:00 Rell [facility] MAGNESIUM 2023-04-06 21:17:00 Degueure, [facility] COMP. METABOLIC PANEL ([id number]) 2023-04-06 21:17:00 Degueure, [facility] CBC WITHOUT DIFF 2023-04-06 21:17:00 Degueure, [facility] MAGNESIUM 2023-04-06 21:17:00 Degueure, [facility] COMP. METABOLIC PANEL ([id number]) 2023-04-06 21:17:00 Degueure, [facility] CBC WITHOUT DIFF 2023-04-06 21:17:[address] [facility] POCT GLUCOSE (AUTOMATED) 2023-04-06 20:59:[address] [facility] POCT GLUCOSE (AUTOMATED) 2023-04-06 20:59:[address] [facility] CARDIAC CATHETERIZATION 2023-04-06 16:47:12 Bravo, Sendellie [facility] CARDIAC CATHETERIZATION 2023-04-06 16:47:12 Bravo, Sendil [facility] CARDIAC CATHETERIZATION 2023-04-06 16:47:12 Bravo, Sendil [facility] CARDIAC CATHETERIZATION 2023-04-06 16:47:[address] [facility] CARDIAC CATHETERIZATION 2023-04-06 16:47:12 Bravo, Sendil [facility] CARDIAC CATHETERIZATION 2023-04-06 16:47:12 Bravo, Sendil [facility] CARDIAC CATHETERIZATION 2023-04-06 16:47:12 Bravo, Sendil [facility] POCT ACT LOW RANGE 2023-04-06 16:40:[address] [facility] POCT ACT LOW RANGE 2023-04-06 16:14:[address] [facility] TROPONIN I 2023-03-06 06:33:[address] [facility] TROPONIN I 2023-03-06 04:15:[address] [facility] COMP. METABOLIC PANEL ([id number]) 2023-03-06 04:15:[address] [facility] CBC WITH DIFF 2023-03-06 04:15:[address] [facility] PROTHROMBIN TIME / INR 2023-03-06 04:15:[address] [facility] N-TERMINAL PRO-BNP 2023-03-06 04:15:[address] [facility] ASSIGNMENT OF BENEFITS 2023-02-12 18:46:38 Doctor Unassigned, [facility] CONSENT/REFUSAL FOR DIAGNOSIS AND TREATMENT 2023-02-12 17:23:04 Doctor Unassigned, [facility] ELECTROPHYSIOLOGY PROCEDURE 2022-12-19 12:49:[address] [facility] ELECTROPHYSIOLOGY PROCEDURE 2022-12-19 12:49:[address] [facility] DISCLOSURE AND CONSENT, MEDICAL AND SURGICAL PROCEDURES 2022-12-19 05:01:00 Doctor Unassigned, [facility] MEDICAL RELEASE/CLEARANCE FORMS 2022-09-12 06:01:00 Doctor Unassigned, [facility] EKG-12 LEAD 2022-08-20 04:31:[address] [facility] XR CHEST 1 VW 2022-08-20 03:29:[address] [facility] TROPONIN I 2022-08-20 01:57:[address] [facility] COMP. METABOLIC PANEL ([id number]) 2022-08-20 01:57:[address] [facility] CBC WITH DIFF 2022-08-20 01:57:[address] [facility] URINALYSIS 2022-08-20 01:57:[address] [facility] CONSENT/REFUSAL FOR DIAGNOSIS AND TREATMENT 2022-08-20 00:38:57 Doctor Unassigned, [facility] POCT GLUCOSE (AUTOMATED) 2022-07-12 18:27:[address] [facility] POCT GLUCOSE (AUTOMATED) 2022-07-12 18:27:[address] [facility] TRANSTHORACIC ECHO (TTE) COMPLETE W/ CONTRAST 2022-07-12 16:00:[address] [facility] TRANSTHORACIC ECHO (TTE) COMPLETE W/ CONTRAST 2022-07-12 16:00:[address] [facility] POCT GLUCOSE (AUTOMATED) 2022-07-12 14:55:[address] [facility] POCT GLUCOSE (AUTOMATED) 2022-07-12 14:55:[address] [facility] HB ECG ROUTINE & RHYTHM STRIP 2022-07-12 13:59:42 Catherine Segovia [facility] MAGNESIUM 2022-07-12 10:37:00 Catherine Segovia [facility] BASIC METABOLIC PANEL (NA, K, CL, CO2, GLUCOSE, BUN, CREATININE, CA) 2022-07-12 10:37:00 Catherine Segovia [facility] LIPID PANEL ([id number])(TOTAL CHOLESTEROL, TRIGLYCERIDES, HDL) 2022-07-12 10:37:00 Juliette [facility] CBC WITH DIFF 2022-07-12 10:37:00 Juliette Catherine [facility] MAGNESIUM 2022-07-12 10:37:00 Juliette [facility] BASIC METABOLIC PANEL (NA, K, CL, CO2, GLUCOSE, BUN, CREATININE, CA) 2022-07-12 10:37:00 Catherine Segovia [facility] LIPID PANEL ([id number])(TOTAL CHOLESTEROL, TRIGLYCERIDES, HDL) 2022-07-12 10:37:00 Juliette [facility] CBC WITH DIFF 2022-07-12 10:37:00 Juliette [facility] GLYCOSYLATED HEMOGLOBIN (A1C) 2022-07-12 10:37:00 Juliette [facility] POCT GLUCOSE (AUTOMATED) 2022-07-12 03:46:00 Dave [facility] POCT GLUCOSE (AUTOMATED) 2022-07-12 03:46:[address] [facility] POCT GLUCOSE (AUTOMATED) 2022-07-12 00:08:[address] [facility] POCT GLUCOSE (AUTOMATED) 2022-07-12 00:08:00 [facility]) 2022-07-11 21:30:[address] [facility] POCT GLUCOSE (AUTOMATED) 2022-07-11 21:30:[address] [facility] CARDIAC CATHETERIZATION 2022-07-11 16:32:[address] [facility] CARDIAC CATHETERIZATION 2022-07-11 16:32:[address] [facility] CARDIAC CATHETERIZATION 2022-07-11 16:32:[address] [facility] CATH PROCEDURE LOG 2022-07-11 15:12:[address] [facility] CATH PROCEDURE LOG 2022-07-11 15:12:[address] [facility] COMP. METABOLIC PANEL ([id number]) 2022-07-07 15:55:[address] [facility] CBC WITH DIFF 2022-07-07 15:55:[address] [facility] PROTHROMBIN TIME / INR 2022-07-07 15:55:[address] [facility] ACTIVATED PARTIAL THRMPLAS KOJO 2022-07-07 15:55:[address] [facility] N-TERMINAL PRO-BNP 2022-07-07 15:55:[address] [facility] CARDIAC CATHETERIZATION 2022-04-18 14:01:[address] [facility] CARDIAC CATHETERIZATION 2022-04-18 14:01:[address] [facility] OUTPATIENT CARDIAC CATHETERIZATION DOCUMENTS 2022-04-18 05:01:00 Doctor Unassigned, [facility] Encounters Start Date/Time End Date/Time Encounter Type Admission Type Attending [facility] Facility Care Department Encounter ID Source 2024-07-11 08:24:00 [facility] [id number] [facility] 2024-04-18 11:15:00 [facility] [id number] [facility] 2022-08-10 09:04:01 [facility] [id number] [facility] 2022-08-08 09:10:00 Outpatient Parra, Glen [facility] ST[facility] [id number] [facility] 2022-07-06 15:20:00 Outpatient Parra, Glen STLMLC ST[facility] [id number] [facility] 2022-03-23 14:15:57 Outpatient MACRINA HENRIQUEZ [facility] [id number] [facility] 2021-08-17 14:33:36 Outpatient Parra, Glen STLMLC STL[facility] [id number] [facility] 2021-08-17 12:59:39 Outpatient Parra, Glen STLMLC ST[facility] [id number] [facility] 2021-08-17 12:59:09 Outpatient Parra, Glen STLMLC STL[facility] [id number] [facility] 2021-08-17 12:25:40 Outpatient Parra, Glen STLMLC ST[facility]C [id number] [facility] 2021-08-17 12:11:56 Outpatient Parra, Glen STLMLC STL[facility]C [id number] [facility] 2021-08-17 11:21:41 Outpatient Parra, Glen STLMLC STL[facility]C [id number] [facility] 2021-08-17 11:16:02 Outpatient Parra, Glen STLMLC STL[facility]C [id number] [facility] 2021-08-17 11:07:32 Outpatient Parra, Glen STLMLC ST[facility] [id number] [facility] 2021-08-17 11:07:20 Outpatient Parra, Glen STLMLC ST[facility] [id number] [facility] 2021-08-17 11:06:39 Outpatient Parra, Glen STLMLC STL[facility]C [id number] [facility] 2021-05-23 00:00:12 Emergency [facility] [id number] [facility] 2026-01-01 11:00:00 2026-01-01 11:00:00 Outpatient LIANG GIMENEZ MITCHELL [facility] [id number] [facility] 2024-12-25 09:20:00 2024-12-25 09:20:00 Outpatient NICHO ROQUE CHOCKALINGA M [facility] [id number] [facility] 2024-12-12 11:45:00 2024-12-12 11:45:00 Outpatient MAT LEONE [facility] [id number] [facility] 2024-12-12 10:15:00 2024-12-12 10:15:00 Outpatient MAT LEONE [facility] [id number] [facility] 2024-11-29 10:14:00 2024-11-29 13:18:00 Emergency X WALDEMARERLUCIANO OLIVA ERIN [facility] E[facility] [id number] [facility] 2024-11-29 10:14:00 2024-11-29 13:18:00 Emergency AuryanerBenjamin olivain Reina [facility] [id number] [facility] 2024-11-12 00:00:00 2024-11-13 02:04:10 Orders Only Nicho Sykes [facility] [place] [facility] [id number] [facility] 2024-11-12 00:25:00 2024-11-12 23:59:00 Outpatient NICHO ROQUE CHOCKALINGA M [facility] [id number] [facility] 2024-11-12 00:25:00 2024-11-12 23:59:00 Hospital Encounter Nicho Sykes [facility] [place] ([facility]) [id number] [facility] 2024-09-23 00:00:00 2024-10-25 18:16:24 Patient Secure Msg Naomy [facility]ravo [facility] [id number] [facility] 2024-10-17 09:30:00 2024-10-17 09:54:25 Outpatient R NAOMY BRAVO [facility] [id number] [facility] 2024-10-17 09:30:00 2024-10-17 09:54:25 Office Visit Naomy Bravo [facility] [id number] [facility] 2024-10-14 00:00:00 2024-10-14 00:00:00 ESCOBAR Wall: [address] [place], [place] [address], [place] [address] , Ph. [facility] - GC_GCBZW_[facility]* [id number] [facility] 2024-10-12 00:00:00 2024-10-13 13:17:46 Refill Naomy Bravo [facility] [id number] [facility] 2024-09-28 14:34:00 2024-09-28 16:50:00 Emergency X KAALE, TIFFANI CHRISTIANSON, TIFFANI [facility] ERT [id number] [facility] 2024-09-15 13:15:00 2024-09-15 13:37:46 Outpatient R LIANG [facility] [id number] [facility] 2024-09-15 13:15:00 2024-09-15 13:37:46 Office Visit Liang Thorpe [facility] 1.2.840.114 350.1.13.10 4.2.7.2.686 [id number] [facility] 2024-09-09 00:00:00 2024-09-09 00:00:00 Chary Pulliam MD: [address] [place] [address] Dr Haile, [place] [address], [place] [address] , Ph. [facility] - GC_GCBZW_[facility]* [id number] [facility] 2024-09-01 00:00:00 2024-09-01 09:33:50 Telephone Naomy Bravo [facility] 1.2.840.114 350.1.13.10 4.2.7.2.686 [id number] [facility] 2024-08-29 08:37:43 2024-08-29 23:59:00 Outpatient NAOMY GLEASON [facility] [id number] [facility] 2024-08-29 08:37:43 2024-08-29 23:59:00 Hospital Encounter Naomy Bravo [facility] 1.2.840.114 350.1.13.10 4.2.7.2.686 [id number] [facility] 2024-08-18 13:15:00 2024-08-18 14:11:05 Outpatient R LIANG THORPE [facility] [id number] [facility] 2024-08-18 13:15:00 2024-08-18 14:11:05 Office Visit Liang Thorpe [facility] PROFESS[facility] NAL BUILDING 1.2.840.114 350.1.13.10 4.2.7.2.686 [id number] [facility] 2024-08-15 00:00:00 2024-08-15 16:28:30 Naomy Good [facility] 1.2.840.114 350.1.13.10 4.2.7.2.686 [id number] [id number] [facility] 2024-08-14 22:09:00 2024-08-15 00:08:00 Emergency X ERNESTINE MILES PAMALA [facility] ERT [id number] [facility] 2024-08-14 22:09:00 2024-08-15 00:08:00 Emergency Ernestine Miles G [facility] 1.2.840.114 350.1.13.10 4.2.7.2.686 [id number] [facility] 2024-08-13 15:00:00 2024-08-13 23:59:00 Outpatient R NICHO SYKES [facility] [id number] [facility] 2024-08-13 15:00:00 2024-08-13 23:59:00 Hospital Encounter Nicho Sykes [facility] [place] [facility] 1.2.840.114 350.1.13.10 4.2.7.2.686 [id number] [facility] 2024-08-07 00:00:00 2024-08-07 00:00:00 ESCOBAR Wall: Trudy Haile, [facility] [address], [place] [address] , Ph. [facility] - GC_GCBZW_La rony Cohn* [id number] [facility] 2024-07-11 12:56:07 2024-07-11 23:59:00 Hospital Encounter Liang Thor[facility] 1.2.840.114 350.1.13.10 4.2.7.2.686 [id number] [facility] 2024-07-11 12:55:35 2024-07-11 12:55:35 Hospital Encounter Liang Thorpe [facility] 1.2.840.114 350.1.13.10 4.2.7.2.686 [id number] [facility] 2024-07-11 12:35:38 2024-07-11 12:54:00 Outpatient R LIANG THORPE [facility] [id number] [facility] 2024-07-11 12:35:38 2024-07-11 12:54:00 Hospital Encounter Liang Thorpe [facility] 1.2.840.114 350.1.13.10 4.2.7.2.686 [id number] [id number] [facility] 2024-07-11 00:00:00 2024-07-11 00:00:00 OFFICE VISIT ESTAB PT LEVEL 4 STLMLC STLMLC [id number] [facility] 2024-06-30 14:30:00 2024-06-30 14:30:00 Outpatient R NAOMY BRAVO [facility] [id number] [facility] 2024-05-26 00:00:00 2024-06-28 18:22:37 Patient Secure MsNaomy Lawton [facility] 1.2.840.114 350.1.13.10 4.2.7.2.686 [id number] [facility] 2024-06-26 13:40:00 2024-06-26 13:40:00 Outpatient R NICHO SYKES [facility] [id number] [facility] 2024-06-26 09:00:00 2024-06-26 09:25:31 Outpatient R NICHO SYKES [facility] [id number] [facility] 2024-06-26 09:00:00 2024-06-26 09:25:31 Office Visit Nicho Sykes [facility] 1.2.840.114 350.1.13.10 4.2.7.2.686 [id number] [id number] [facility] 2024-06-24 00:00:00 2024-06-24 00:00:00 ESCOBAR Wall: [address] [place] [address] Dr Haile, [place] [address] [address], [place] [address] , Ph. [facility] GC_GCBZW_La [facility]* [id number] [facility] 2024-06-16 00:00:00 2024-06-16 21:30:24 Telephone Naomy Bravo [facility] 1.2.840.114 350.1.13.10 4.2.7.2.686 [id number] [id number] [facility] 2024-06-13 00:00:00 2024-06-15 13:25:41 Patient Secure Msg Naomy Bravo [facility] BU[facility] 1.2.840.114 350.1.13.10 4.2.7.2.686 [id number] [facility] 2024-06-13 10:00:00 2024-06-13 10:09:13 Outpatient NAOMY GLEASON [facility] [id number] [facility] 2024-06-13 10:00:00 2024-06-13 10:09:13 Office Visit Naomy Bravo [facility] BU[facility] 1.2.840.114 350.1.13.10 4.2.7.2.686 [id number] [facility] 2024-05-30 00:00:00 2024-05-30 00:00:00 Chary Pulliam MD: [address] Kim Haile, [facility] [address] [phone] , Ph. [facility] GC_GCBZW_[facility]* [id number] [facility] 2024-05-23 00:00:00 2024-05-23 15:33:55 Patient Secure Msg Naomy Bravo [facility] 1..840.114 350.1.13.10 4.2.7.2.686 [id number] 059 [id number] [facility] 2024-05-21 00:00:00 2024-05-21 00:00:00 Chary Pulliam MD: 208 Kim Haile, [facility] [address] [phone] , Ph. [facility] GC_GCBZW_[facility]* [id number] [facility] 2024-05-12 11:30:00 2024-05-12 12:42:34 Outpatient R GILLES [facility] [id number] [facility] 2024-05-12 11:30:00 2024-05-12 12:00:00 Office Visit Gilles [facility] BUILDING 1.2.840.114 350.1.13.10 4.2.7.2.686 [id number] [facility] 2024-05-10 10:49:00 2024-05-10 13:26:00 Emergency X MICAELA HOWARD SANDRA [facility] ERT [id number] [facility] 2024-05-10 10:49:00 2024-05-10 13:26:00 Emergency Mega Micaela Brewer [facility] 1.2.840.114 350.1.13.10 4.2.7.2.686 [id number] [facility] 2024-05-06 00:00:00 2024-05-08 14:55:54 Naomy Good [facility] PROFESSIO NAL BUILDING 1..840.114 350.1.13.10 4.2.7.2.686 [id number] 059 [id number] [facility] 2024-04-18 00:00:00 2024-04-18 00:00:00 OFFICE VISIT ESTAB PT LEVEL [id number] [facility] 2024-03-17 13:15:00 2024-03-17 13:41:56 Outpatient R LIANG THORPE [facility] [id number] [facility] 2024-03-17 13:15:00 2024-03-17 13:41:56 Office Visit Liang Thorpe [facility] PROFESSIO NAL BUILDING 1..840.114 350.1.13.10 4.2.7.2.686 [id number] [facility] 2024-03-11 00:00:00 2024-03-11 00:00:00 (TEL) STLMLC STLMLC [id number] [facility] 2024-03-10 10:23:36 2024-03-10 23:59:00 Outpatient R LIANG THORPE [facility] [id number] [facility] 2024-03-10 10:23:36 2024-03-10 23:59:00 Hospital Encounter Liang Thorpe [facility] PROF[facility] NAL BUILDING 1..840.114 350.1.13.10 4.2.7.2.686 [id number] [facility] 2024-03-07 00:00:00 2024-03-07 00:00:00 OFFICE VISIT ESTAB PT LEVEL 4 STLMLC STLMLC [id number] [facility] 2024-02-11 14:00:00 2024-02-11 14:00:50 Outpatient R LIANG THORPE [facility] [id number] [facility] 2024-02-11 14:00:00 2024-02-11 14:00:50 Office Visit Liang Thor[facility] 1.2.840.114 350.1.13.10 4.2.7.2.686 [id number] [facility] 2024 09:35:18 2024 23:59:00 Hospital Encounter Bruce Liang [facility] 1.2840.114 350.1.13.10 4.2.7.2.686 [id number] [facility] 2024 09:34:37 2024 09:34:37 Outpatient R LIANG THORPE [facility] [id number] [facility] 2024 09:34:37 2024 09:34:37 Hospital Encounter Bruce Liang [facility] 1.2.840.114 350.1.13.10 4.2.7.2.686 [id number] [facility] 2023-12-24 00:00:00 2024-01-22 10:43:39 Telephone Liang Thorpe [facility] 1.2.840.114 350.1.13.10 4.2.7.2.686 [id number] [facility] 2024-01-14 13:45:00 2024-01-14 13:50:59 Outpatient R LIANG THORPE [facility] [id number] [facility] 2024-01-14 13:45:00 2024-01-14 13:50:59 [facility] 1.2.840.114 350.1.13.10 4.2.7.2.686 [id number] [facility] 2024-01-04 11:30:00 2024-01-04 11:43:55 Outpatient R NAOMY BRAVO [facility] [id number] [facility] 2024-01-04 11:30:00 2024-01-04 11:43:55 Office Visit Naomy Bravo [facility] 1.2.840.114 350.1.13.10 4.2.7.2.686 [id number] 059 [id number] [facility] 2023-12-31 15:30:00 2023-12-31 15:30:00 Outpatient R LIANG THORPE [facility] [id number] [facility] 2023-12-30 00:00:00 2023-12-31 08:21:33 Refill Naomy BravoHAviva [facility] 1.2.840.114 350.1.13.10 4.2.7.2.686 [id number] [facility] 2023-12-28 07:19:00 2023-12-28 13:41:00 Outpatient R LIANG THORPE [facility] [id number] [facility] 2023-12-28 07:19:00 2023-12-28 13:41:00 Hospital Encounter Liang Thorpe [facility] 1.2.840.114 350.1.13.10 4.2.7.2.686 [id number] [facility] 2023-12-28 09:06:00 2023-12-28 10:56:00 Surgery Bruce Liang [facility] 1.2.840.114 350.1.13.10 4.2.7.2.686 [id number] [facility] 2023-12-27 13:40:00 2023-12-27 13:53:42 Outpatient R NICHO SYKES [facility] [id number] [facility] 2023-12-27 13:40:00 2023-12-27 13:53:42 Office Visit Nicho Sykes [facility] 1.2.840.114 350.1.13.10 4.2.7.2.686 [id number] [id number] [facility] 2023-12-03 14:00:00 2023-12-03 14:46:51 Outpatient R LIANG THORPE [facility] [id number] [facility] 2023-12-03 14:00:00 2023-12-03 14:46:51 Office Visit Liang Thorpe [facility] 1.2.840.114 350.1.13.10 4.2.7.2.686 [id number] [facility] 2023-10-31 00:00:00 2023-12-01 18:05:52 Patient Secure Msg Liang Thorpe [facility] 1.2.840.114 350.1.13.10 4.2.7.2.686 [id number] [facility] 2023-11-29 10:40:00 2023-11-29 10:40:00 Outpatient R NICHO SYKES [facility] [id number] [facility] 2023-11-12 00:00:00 2023-11-12 00:00:00 Telephone Naomy Bravo [facility] 1.2.840.114 350.1.13.10 4.2.7.2.686 [id number] 059 [id number] [facility] 2023-11-09 12:28:03 2023-11-09 23:59:00 Outpatient R LIANG THORPE [facility] [id number] [facility] 2023-11-09 12:28:03 2023-11-09 23:59:00 Hospital Encounter Liang Thorpe [facility] 1.2.840.114 350.1.13.10 4.2.7.2.686 [id number] [facility] 2023-11-09 12:30:00 2023-11-09 12:45:00 Residential Driver Visit Pob, Adc Lab Main [facility] 1.2.840.114 350.1.13.10 4.2.7.2.686 [id number] [facility] 2023-11-09 12:27:44 2023-11-09 12:27:44 Hospital Encounter Liang Thorpe [facility] 1.2.840.114 350.1.13.10 4.2.7.2.686 [id number] [facility] 2023-11-09 00:00:00 2023-11-09 00:00:00 OFFICE VISIT ESTAB PT LEVEL 4 [facility] [id number] [facility] 2023-11-09 00:00:00 2023-11-09 00:00:00 SUB ANNUAL [facility]LL[facility] VISIT [facility] [id number] [facility] 2023-11-05 11:00:00 2023-11-05 11:27:45 Outpatient R NAGA LAKHANI [facility] [id number] [facility] 2023-11-05 11:00:00 2023-11-05 11:27:45 Office Visit Naga Lakhani Popeye [facility] BUILDING 1.2.840.114 350.1.13.10 4.2.7.2.686 [id number] [id number] [facility] 2023-11-01 11:03:16 2023-11-01 23:59:00 Outpatient R NICHO SYKES [facility] [id number] [facility] 2023-11-01 11:03:16 2023-11-01 23:59:00 Hospital Encounter Nicho Sykes [facility] BUILDING 1.2.840.114 350.1.13.10 4.2.7.2.686 [id number] [facility] 2023-10-29 14:30:00 2023-10-29 15:14:53 Outpatient R LIANG THORPE [facility] [id number] [facility] 2023-10-29 14:30:00 2023-10-29 15:14:53 Office Visit Liang Thorpe [facility] 1.2.840.114 350.1.13.10 4.2.7.2.686 [id number] [facility] 2023-10-24 00:00:00 2023-10-24 00:00:00 Patient Secure Msg Liang Thorpe [facility] BU[facility]ING 1.2.840.114 350.1.13.10 4.2.7.2.686 [id number] [facility] 2023-10-22 00:00:00 2023-10-22 00:00:00 Patient Secure Msg Naomy Bravo [facility] BU[facility] 1.2.840.114 350.1.13.10 4.2.7.2.686 [id number] [id number] [facility] 2023-10-17 00:00:00 2023-10-17 00:00:00 (WEB) STLMLC STLMLC [id number] [facility] 2023-10-05 09:30:30 2023-10-05 23:59:00 Outpatient R NICHO SYKES [facility] [id number] [facility] 2023-10-05 09:30:30 2023-10-05 23:59:00 Hospital Encounter RogerioNicho shafer [facility] 1.840.114 350.1.13.10 4.2.7.2.686 [id number] [facility] 2023-09-21 06:20:00 2023-09-21 11:47:00 [facility] [id number] [facility] 2023-09-21 06:20:00 2023-09-21 11:47:00 [facility] 1.2840.114 350.1.13.10 4.2.7.2.686 [id number] [facility] 2023-09-21 07:55:00 2023-09-21 08:55:00 Surgery RogerioNicho shafer [facility] 1.2840.114 350.1.13.10 4.2.7.2.686 [id number] [facility] 2023-09-21 00:00:00 2023-09-21 00:00:00 Orders Only Doctor Unassigned, [place] [facility] 1.2.840.114 350.1.13.10 4.2.7.2.686 [id number] [facility] 2023-09-17 15:30:00 2023-09-17 16:03:02 Outpatient R LIANG THORPE LIANG THORPE [facility] [id number] [facility] 2023-09-17 15:30:00 2023-09-17 16:03:02 [facility] 1.2.840.114 350.1.13.10 4.2.7.2.686 [id number] [facility] 2023-09-10 08:30:00 2023-09-10 08:45:00 Residential Driver Visit Pob, Adc Lab Main Naomy Bravo [facility] 1.2.840.114 350.1.13.10 4.2.7.2.686 [id number] [facility] 2023-09-10 08:30:00 2023-09-10 08:30:00 Outpatient R NAOMY BRAVO [facility] [id number] [facility] 2023-09-10 00:00:00 2023-09-10 00:00:00 Telephone Nicho Sykes [facility] 1.2.840.114 350.1.13.10 4.2.7.2.686 [id number] [facility] 2023-08-31 00:00:00 2023-08-31 00:00:00 (WEB) STLMLC STLMLC [id number] [facility] 2023-08-31 00:00:00 2023-08-31 00:00:00 (WEB) STLMLC STLMLC [id number] [facility] 2023-08-30 10:20:00 2023-08-30 10:53:46 Outpatient R NICHO SYKES [facility] [id number] [facility] 2023-08-30 10:20:00 2023-08-30 10:53:46 Office Visit Jose Sykesjama roxy [facility] 1.2.840.114 350.1.13.10 4.2.7.2.686 [id number] [facility] 2023-08-23 00:00:00 2023-08-23 00:00:00 Telephone Rogerio Nicho roxy [facility] 1..840.114 350.1.13.10 4.2.7.2.686 [id number] [facility] 2023-08-15 00:00:00 2023-08-15 00:00:00 ([facility]) STLMLC STLMLC [id number] [facility] 2023-08-13 14:45:00 2023-08-13 14:45:00 Outpatient LIANG GIMENEZ MITCHELL [facility] [id number] [facility] 2023-08-10 00:00:00 2023-08-10 00:00:00 OFFICE VISIT ESTAB PT LEVEL 4 STLMLC STLMLC [id number] [facility] 2023-08-01 00:00:00 2023-08-01 00:00:00 Naomy Good K.HAviva [facility] 1..840.114 350.1.13.10 4.2.7.2.686 [id number] [id number] [facility] 2023-08-01 00:00:00 2023-08-01 00:00:00 RefNaomy Hardy K.HAviva [facility] BUILDING 1.2.840.114 350.1.13.10 4.2.7.2.686 [id number] [id number] [facility] 2023-07-13 00:00:00 2023-07-13 00:00:00 Naomy Good K.HAviva [facility] 1.2840.114 350.1.13.10 4.2.7.2.686 [id number] [id number] [facility] 2023-07-10 00:00:00 2023-07-10 00:00:00 Refill Naomy Bravo [facility] 1.2840.114 350.1.13.10 4.2.7.2.686 [id number] [id number] [facility] 2023-06-29 11:00:00 2023-06-29 11:15:00 Residential Driver Visit 2, Adc Lab Naomy Bravo [facility] 1.2840.114 350.1.13.10 4.2.7.2.686 [id number] [facility] 2023-06-29 10:30:00 2023-06-29 11:14:12 Outpatient R NAOMY BRAVO [facility] [id number] [facility] 2023-06-29 10:30:00 2023-06-29 11:14:12 Office Visit Naomy Bravo [facility] 1.2840.114 350.1.13.10 4.2.7.2.686 [id number] [id number] [facility] 2023-06-29 00:00:00 2023-06-29 00:00:00 Patient Secure Msg Doctor Unassigned, [place] [facility] 1.2840.114 350.1.13.10 4.2.7.2.686 [id number] [id number] [facility] 2023-06-19 00:00:00 2023-06-19 00:00:00 Refill Naga Lakhani [facility] 1.2840.114 350.1.13.10 4.2.7.2.686 [id number] [facility] 2023-06-11 00:00:00 2023-06-11 00:00:00 (TEL) STLMLC STLMLC [id number] [facility] 2023-06-01 14:36:38 2023-06-01 23:59:00 Hospital Encounter Naga Lakhani Popeye [facility] 1.2.840.114 350.1.13.10 4.2.7.2.686 [id number] [facility] 2023-06-01 14:36:28 2023-06-01 23:59:00 Outpatient R NICHO SYKES [facility] [id number] [facility] 2023-06-01 14:36:28 2023-06-01 23:59:00 Hospital Encounter Nicho Sykes [facility] 1.2.840.114 350.1.13.10 4.2.7.2.686 [id number] [facility] 2023-06-01 00:00:00 2023-06-01 00:00:00 (TEL) STLMLC STLMLC [id number] [facility] 2023-05-22 00:00:00 2023-05-22 00:00:00 Refill KarNaga [facility] 1.2.840.114 350.1.13.10 4.2.7.2.686 [id number] [id number] [facility] 2023-05-21 00:00:00 2023-05-21 00:00:00 (TEL) STLMLC STLMLC [id number] [facility] 2023-05-21 00:00:00 2023-05-21 00:00:00 Transition of Care Marly [place] 1.2.840.114 350.1.13.10 4.2.7.2.686 [id number] [facility] 2023-05-18 10:54:00 2023-05-19 15:10:00 Outpatient X NILAM FLORES [facility] [id number] [facility] 2023-05-18 10:54:00 2023-05-19 15:10:00 Emergency JoyNilam mack Nicol, [facility] 1.2840.114 350.1.13.10 4.2.7.2.686 [id number] [facility] 2023-05-17 08:40:00 2023-05-17 08:55:15 Outpatient R NICHO SYKES [facility] [id number] [facility] 2023-05-17 08:40:00 2023-05-17 08:55:15 Office Visit Nicho Sykes [facility] 1.2.840.114 350.1.13.10 4.2.7.2.686 [id number] [facility] 2023-05-09 00:00:00 2023-05-09 00:00:00 Telephone Nicho Sykes [facility] 1.2840.114 350.1.13.10 4.2.7.2.686 [id number] [facility] 2023-05-07 08:30:00 2023-05-07 09:00:00 Office Visit Naga Lakhani [facility] 1.2.840.114 350.1.13.10 4.2.7.2.686 [id number] [facility] 2023-05-07 08:30:00 2023-05-07 08:30:00 Outpatient R NAGA LAKHANI [facility] [id number] Porsha haile [facility] 2023-05-04 00:00:00 2023-05-04 00:00:00 OFFICE VISIT ESTAB PT LEVEL 4 STLMLC STLMLC [id number] [facility] 2023-04-23 00:00:00 2023-04-23 00:00:00 Patient Secure Msg Naomy Bravo [facility] 1.2840.114 350.1.13.10 4.2.7.2.686 [id number] [facility] 2023-04-20 10:00:00 2023-04-20 10:43:38 Outpatient R NAOMY BRAVO [facility] [id number] [facility] 2023-04-20 10:00:00 2023-04-20 10:43:38 Office Visit Naomy Bravo [facility] 1.2840.114 350.1.13.10 4.2.7.2.686 [id number] [facility] 2023-04-13 00:00:00 2023-04-13 00:00:00 Patient Secure Msg Doctor Unassigned, [place] [facility] 1.2840.114 350.1.13.10 4.2.7.2.686 [id number] [facility] 2023-04-11 00:00:00 2023-04-11 00:00:00 Transition of Care Marly Hanley [facility] 1.20.114 350.1.13.10 4.2.7.2.686 [id number] [facility] 2023-04-10 05:27:00 2023-04-10 17:47:00 Outpatient U FILBIERTO H, [facility] [place] H, PERLA [facility] [id number] [facility] 2023-04-10 05:27:00 2023-04-10 17:47:00 Hospital Encounter Perla Almodovar [facility] 1.2840.114 350.1.13.10 4.2.7.2.686 [id number] [facility] 2023-04-09 00:00:00 2023-04-09 00:00:00 Patient Secure Naomy Lawton [facility] 1.2840.114 350.1.13.10 4.2.7.2.686 [id number] [facility] 2023-04-06 06:31:00 2023-04-07 15:40:00 Outpatient YVONEN CASTRO [facility] [id number] [facility] 2023-04-06 06:31:00 2023-04-07 15:40:00 Hospital Encounter Naga Lakhani Aiham Shalaby, Mostafa Helmy Ahmed [facility] 1.2840.114 350.1.13.10 4.2.7.2.686 [id number] [facility] 2023-04-06 09:08:00 2023-04-06 11:08:00 Surgery Naga Lakhani [facility] 1.2840.114 350.1.13.10 4.2.7.2.686 [id number] [facility] 2023-03-30 10:15:00 2023-03-30 10:30:00 Residential Driver Visit 1, Griffin Lozada [facility] 1.2840.114 350.1.13.10 4.2.7.2.686 [id number] [facility] 2023-03-30 10:15:00 2023-03-30 10:15:00 Outpatient GRIFFIN AGUSTIN [facility] [id number] [facility] 2023-03-28 00:00:00 2023-03-28 00:00:00 Patient Secure Naomy Bravo [facility] 1.2840.114 350.1.13.10 4.2.7.2.686 [id number] [facility] 2023-03-14 00:00:00 2023-03-14 00:00:00 Telephone Unassigned, Cath/Ep [facility] 1.20.114 350.1.13.10 4.2.7.2.686 [id number] [facility] 2023-03-07 10:30:00 2023-03-07 11:29:01 Outpatient R NAOMY BRAVO [facility] [id number] [facility] 2023-03-07 10:30:00 2023-03-07 11:29:01 Office Visit Naomy Bravo [facility] 1.84.114 350.1.13.10 4.2.7.2.686 [id number] [facility] 2023-03-05 22:57:00 2023-03-06 02:35:00 Emergency X ROMEO MENDIETA [facility] ERT [id number] [facility] 2023-03-05 22:57:00 2023-03-06 02:35:00 Emergency Romeo Mendieta S [facility] 1.2840.114 350.1.13.10 4.2.7.2.686 [id number] [facility] 2023-03-06 00:00:00 2023-03-06 00:00:00 Telephone Naomy Bravo [facility] 1.20.114 350.1.13.10 4.2.7.2.686 [id number] [facility] 2023-02-28 00:00:00 2023-02-28 00:00:00 (TEL) STLMLC STLMLC [id number] [facility] 2023-02-12 12:32:00 2023-02-12 14:30:00 Emergency X MARY MEJIA [facility] ERT [id number] [facility] 2023-02-12 12:32:00 2023-02-12 14:30:00 Emergency Mary Mejia [facility] 1.840.114 350.1.13.10 4.2.7.2.686 [id number] [facility] 2023-02-12 10:00:00 2023-02-12 10:00:00 Outpatient NAOMY GLEASON [facility] [id number] [facility] 2023-02-02 00:00:00 2023-02-02 00:00:00 OFFICE VISIT ESTAB PT LEVEL 4 STLMLC STLMLC [id number] [facility] 2023-01-02 13:03:41 2023-01-02 23:59:00 Outpatient BRANDON COHEN [facility] [id number] [facility] 2023-01-02 13:03:41 2023-01-02 23:59:00 Hospital Encounter Brandon Arias [facility] 1.840.114 350.1.13.10 4.2.7.2.686 [id number] [facility] 2022-12-20 00:00:00 2022-12-20 00:00:00 Patient Secure Naomy Erwin [facility] PROFESSIO [facility] 1.2.840.114 350.1.13.10 4.2.7.2.686 [id number] [facility] 2022-12-19 12:00:00 2022-12-19 12:45:00 Surgery Ivonne Brandon [facility] 1.2.840.114 350.1.13.10 4.2.7.2.686 [id number] [facility] 2022-12-19 06:19:00 2022-12-19 09:46:00 Outpatient R BRANDON ARIAS [facility] [id number] [facility] 2022-12-19 06:19:00 2022-12-19 09:46:00 Hospital Encounter [facility] 1.2.840.114 350.1.13.10 4.2.7.2.686 [id number] [facility] 2022-12-19 00:00:00 2022-12-19 00:00:00 Orders Only Doctor Unassigned, [place] [facility] 1.2840.114 350.1.13.10 4.2.7.2.686 [id number] [id number] [facility] 2022-12-15 10:00:00 2022-12-15 10:15:00 Residential Driver Visit Posandy, Adc Lab Main Naomy Bravo [facility] 1..840.114 350.1.13.10 4.2.7.2.686 [id number] [facility] 2022-12-15 10:00:00 2022-12-15 10:00:00 Outpatient R NAOMY BRAVO [facility] [id number] [facility] 2022-12-05 00:00:00 2022-12-05 00:00:00 Telephone Naomy Bravo [facility] 1.2840.114 350.1.13.10 4.2.7.2.686 [id number] [facility] 2022-11-16 09:00:00 2022-11-16 09:20:00 Office Visit Brandon Arias [facility] 1.2.840.114 350.1.13.10 4.2.7.2.686 [id number] [facility] 2022-11-16 09:00:00 2022-11-16 09:00:00 Outpatient R EVELYNE ARIASHCA [facility] [id number] [facility] 2022-11-16 00:00:00 2022-11-16 00:00:00 Telephone Ivonne [facility] 1..840.114 350.1.13.10 4.2.7.2.686 [id number] [facility] 2022-11-03 00:00:00 2022-11-03 00:00:00 OFFICE VISIT ESTAB PT LEVEL 4 STLMLC [facility] [id number] [facility] 2022-11-03 00:00:00 2022-11-03 00:00:00 (MCR WELL) Medicare Wellness STLMLC [facility] [id number] [facility] 2022-10-20 10:00:00 2022-10-20 10:00:00 Outpatient R NAOMY BRAVO [facility] [id number] [facility] 2022-10-13 10:00:00 2022-10-13 10:36:05 Outpatient R NAOMY BRAVO [facility] [id number] [facility] 2022-10-13 10:00:00 2022-10-13 10:36:05 Office Visit Naomy Bravo [facility] 1.2.840.114 350.1.13.10 4.2.7.2.686 [id number] 059 [id number] [facility] 2022-10-02 00:00:00 2022-10-02 00:00:00 Telephone Naomy Bravo [facility] 1.2840.114 350.1.13.10 4.2.7.2.686 [id number] 059 [id number] [facility] 2022-09-12 00:00:00 2022-09-12 00:00:00 Orders Only Doctor Unassigned, [place] [facility] 1.2840.114 350.1.13.10 4.2.7.2.686 [id number] [facility] 2022-09-08 09:30:00 2022-09-08 09:30:00 Outpatient R NAOMY BRAVO [facility] [id number] [facility] 2022-09-08 09:30:00 2022-09-08 09:30:00 Outpatient R NAOMY BRAVO [facility] [id number] [facility] 2022-09-08 00:00:00 2022-09-08 00:00:00 Patient Secure Msg Naomy Bravo [facility] 1.2840.114 350.1.13.10 4.2.7.2.686 [id number] [facility] 2022-08-24 08:30:00 2022-08-24 23:59:00 Outpatient R NAOMY BRAVO [facility] [id number] [facility] 2022-08-24 15:30:00 2022-08-24 16:20:54 Office Visit Naomy Bravo K.HAviva [facility] 1.2840.114 350.1.13.10 4.2.7.2.686 [id number] 059 [id number] [facility] 2022-08-21 00:00:00 2022-08-21 00:00:00 Patient Secure Msg Naomy Bravo K.[facility]. [facility] 1.2840.114 350.1.13.10 4.2.7.2.686 [id number] [facility] 2022-08-19 18:46:00 2022-08-19 22:45:00 Emergency X ROMEO MENDIETA [facility] ERT [id number] [facility] 2022-08-19 18:46:00 2022-08-19 22:45:00 Emergency Romeo Mendieta S [facility] 1.2840.114 350.1.13.10 4.2.7.2.686 [id number] [facility] 2022-08-11 00:00:00 2022-08-11 00:00:00 OFFICE VISIT ESTAB PT LEVEL 4 STLMLC STLMLC [id number] [facility] 2022-07-20 00:00:00 2022-07-20 00:00:00 Patient Secure Msg Doctor Unassigned, [place] [facility] 1.84.114 350.1.13.10 4.2.7.2.686 [id number] [facility] 2022-07-11 07:09:00 2022-07-12 17:04:00 Outpatient PARDEEP ALVAREZ [facility] [id number] [facility] 2022-07-11 07:09:00 2022-07-12 17:04:00 Hospital Encounter Naga Lakhani Mohamad Khaled Abdulla [facility] 1.840.114 350.1.13.10 4.2.7.2.686 [id number] [facility] 2022-07-11 05:05:00 2022-07-11 07:05:00 Surgery [facility] Naga [facility] 1.84.114 350.1.13.10 4.2.7.2.686 [id number] [facility] 2022-07-10 00:00:00 2022-07-10 00:00:00 Telephone Naomy BravoColtonAviva [facility] 1.2840.114 350.1.13.10 4.2.7.2.686 [id number] 059 [id number] [facility] 2022-07-07 11:00:00 2022-07-07 11:15:00 Residential Driver Visit Pob, Adc Lab Yang RaojigarGriffin [facility] 1.2840.114 350.1.13.10 4.2.7.2.686 [id number] [facility] 2022-07-07 11:00:00 2022-07-07 11:00:00 Outpatient R GRIFFIN FERNANDES [facility] [id number] [facility] 2022-06-26 00:00:00 2022-06-26 00:00:00 Patient Secure Msg Naomy Bravo Lianne.HAviva [facility] 1.2840.114 350.1.13.10 4.2.7.2.686 [id number] [facility] 2022-06-23 00:00:00 2022-06-23 00:00:00 Telephone Naga Lakhani [facility] 1.2840.114 350.1.13.10 4.2.7.2.686 [id number] [facility] 2022-06-14 00:00:00 2022-06-14 00:00:00 (TEL) STLMLC STLMLC [id number] [facility] 2022-06-14 00:00:00 2022-06-14 00:00:00 Patient Secure Msg Naomy Bravo Lianne.HAviva [facility] 1.2840.114 350.1.13.10 4.2.7.2.686 [id number] [id number] [facility] 2022-06-14 00:00:00 2022-06-14 00:00:00 Patient Secure Naomy Bravo [facility] 1.2.840.114 350.1.13.10 4.2.7.2.686 [id number] [facility] 2022-06-13 00:00:00 2022-06-13 00:00:00 Telephone Naomy Bravo [facility] 1.2.840.114 350.1.13.10 4.2.7.2.686 [id number] 059 [id number] [facility] 2022-04-26 00:00:00 2022-04-26 00:00:00 Patient Secure Naomy Bravo [facility] 1.2.840.114 350.1.13.10 4.2.7.2.686 [id number] [facility] 2022-04-19 00:00:00 2022-04-19 00:00:00 Telephone Naomy Bravo [facility] 1.2.840.114 350.1.13.10 4.2.7.2.686 [id number] 059 [id number] [facility] 2022-04-18 06:18:00 2022-04-18 12:18:00 Outpatient R NAOMY BRAVO [facility] [id number] [facility] 2022-04-18 06:18:00 2022-04-18 12:18:00 Hospital Encounter Naomy Bravo [facility] 1.2.840.114 350.1.13.10 4.2.7.2.686 [id number] [facility] 2022-04-18 07:30:00 2022-04-18 08:30:00 Surgery Kumfa, Naga N [facility] 1.2.840.114 350.1.13.10 4.2.7.2.686 [id number] [facility] 2022-04-18 00:00:00 2022-04-18 00:00:00 Telephone Naomy Bravo LianneAvivaColtonAviva [facility] PROFESSIO [facility] 1.2840.114 350.1.13.10 4.2.7.2.686 [id number] 059 [id number] [facility] 2022-04-18 00:00:00 2022-04-18 00:00:00 Orders Only Doctor Unassigned, [place] [facility] 1.2.840.114 350.1.13.10 4.2.7.2.686 [id number] [facility] 2022-04-14 10:45:00 2022-04-14 11:00:00 Residential Driver Visit 1, Adc Lab Naomy Bravo LianneAvivaColtonAviva [facility] 1.2.840.114 350.1.13.10 4.2.7.2.686 [id number] [facility] 2022-04-14 10:30:00 2022-04-14 10:45:00 Laboratory Only Only, Adc Test Naomy Bravo HarriettAviva [facility] 1.2.840.114 350.1.13.10 4.2.7.2.686 [id number] [facility] 2022-04-14 10:30:00 2022-04-14 10:30:00 Outpatient R NAOMY BRAVO [facility] [id number] [facility] 2022-04-03 00:00:00 2022-04-03 00:00:00 Telephone Unassigned, Cath/Ep [facility] 1.2840.114 350.1.13.10 4.2.7.2.686 [id number] [facility] 2022-03-31 00:00:00 2022-03-31 00:00:00 Telephone Naomy Bravo [facility] 1.2.840.114 350.1.13.10 4.2.7.2.686 [id number] [facility] 2022-03-30 10:50:03 2022-03-30 23:59:00 Hospital Encounter Jeremias [facility] 1.2.840.114 350.1.13.10 4.2.7.2.686 [id number] [facility] 2022-03-30 10:49:00 2022-03-30 10:49:00 Hospital Encounter Jeremias [facility] 1.2.840.114 350.1.13.10 4.2.7.2.686 [id number] [facility] 2022-03-30 10:47:59 2022-03-30 10:48:00 Hospital Encounter Jeremias [facility] 1.2.840.114 350.1.13.10 4.2.7.2.686 [id number] [facility] 2022-03-30 10:46:03 2022-03-30 10:46:03 Outpatient R JEREMIAS [facility] [id number] [facility] 2022-03-30 10:46:03 2022-03-30 10:46:03 [facility] 1.2.840.114 350.1.13.10 4.2.7.2.686 [id number] [facility] 2022-03-30 00:00:00 2022-03-30 00:00:00 Orders Only Doctor Unassigned, [place] [facility] 1.2.840.114 350.1.13.10 4.2.7.2.686 [id number] [facility] 2022-03-29 08:36:31 2022-03-29 23:59:00 Hospital Encounter Argelia Mcdowell [facility] 1..840.114 350.1.13.10 4.2.7.2.686 [id number] [facility] 2022-03-23 13:00:00 2022-03-23 13:29:17 Outpatient R MACRINA PAIGE [facility] [id number] [facility] 2022-03-09 00:00:00 2022-03-09 00:00:00 OFFICE VISIT ESTAB PT LEVEL 4 STLMLC STLMLC [id number] [facility] 2022-03-07 11:00:00 2022-03-07 11:00:00 [facility] [id number] [facility] 2022-03-07 00:00:00 2022-03-07 00:00:00 [facility] [id number] [facility] 2022-03-06 08:30:00 2022-03-06 08:53:33 Outpatient R NAOMY BRAVO [facility] [id number] [facility] 2022-03-06 08:30:00 2022-03-06 08:53:33 Outpatient R NAOMY BRAVO [facility] [id number] [facility] 2022-03-06 08:30:00 2022-03-06 08:53:33 Office Visit Naomy Bravo [facility] ..840.114 350.1.13.10 4.2.7.2.686 [id number] [facility] 2022-03-06 08:30:00 2022-03-06 08:30:00 Outpatient R NAOMY BRAVO [facility] [id number] [facility] 2022-02-28 00:00:00 2022-02-28 00:00:00 [facility] [id number] [facility] 2022-02-28 00:00:00 2022-02-28 00:00:00 [facility] [id number] [facility] 2022-02-27 00:00:00 2022-02-27 00:00:00 Telephone Naomy Bravo [facility] 1.2.840.114 350.1.13.10 4.2.7.2.686 [id number] [facility] 2022-02-14 00:00:00 2022-02-14 00:00:00 (TEL) STLMLC STLMLC [id number] [facility] 2022-01-26 00:00:00 2022-01-26 00:00:00 (TEL) STLMLC STLMLC [id number] [facility] 2022-01-21 00:00:00 2022-01-21 00:00:00 Patient Secure [facility] 1.2.840.114 350.1.13.10 4.2.7.2.686 [id number] [facility] 2022-01-20 08:00:00 2022-01-20 08:01:00 [facility] [id number] [facility] 2022-01-20 08:00:00 2022-01-20 08:00:00 [facility] [id number] [facility] 2021-12-27 08:40:00 2021-12-27 09:34:30 [facility] [id number] [facility] 2021-12-27 08:40:00 2021-12-27 09:34:30 Office Visit Argelia Mcdowell [facility] 1.2.840.114 350.1.13.10 4.2.7.2.686 [id number] [facility] 2021-12-27 00:00:00 2021-12-27 00:00:00 Orders Only Doctor Unassigned, [place] [facility] 1.2.840.114 350.1.13.10 4.2.7.2.686 [id number] [facility] 2021-12-26 00:00:00 2021-12-26 00:00:00 (TEL) STLMLC STLMLC [id number] [facility] 2021-12-26 00:00:00 2021-12-26 00:00:00 Telephone Naomy Bravo [facility] 1.2.840.114 350.1.13.10 4.2.7.2.686 [id number] [facility] 2021-11-09 00:00:00 2021-11-09 00:00:00 (TEL) STLMLC STLMLC [id number] [facility] 2021-11-09 00:00:00 2021-11-09 00:00:00 OFFICE VISIT ESTAB PT LEVEL 4 STLMLC STLMLC [id number] [facility] 2021-11-09 00:00:00 2021-11-09 00:00:00 SUB ANNUAL [facility] WELLNESS VISIT STLMLC STLMLC [id number] [facility] 2021-09-28 10:00:00 2021-09-28 10:00:00 Outpatient R NAOMY BRAVO [facility] [id number] [facility] 2021-09-13 00:00:00 2021-09-13 00:00:00 Telephone Naomy Bravo [facility] 1.2840.114 350.1.13.10 4.2.7.2.686 [id number] [facility] 2021-09-13 00:00:00 2021-09-13 00:00:00 Orders Only Doctor Unassigned, [place] [facility] 1.2.840.114 350.1.13.10 4.2.7.2.686 [id number] [facility] 2021-08-01 00:00:00 2021-08-01 00:00:00 (TEL) [facility] [id number] [facility] 2021-07-27 00:00:00 2021-07-27 00:00:00 OFFICE VISIT ESTAB PT LEVEL 4 STLMLC [facility] [id number] [facility] 2021-07-20 10:00:00 2021-07-20 10:00:00 Outpatient NAOMY GLEASON [facility] [id number] [facility] 2021-07-05 00:00:00 2021-07-05 00:00:00 Transition of Care Marly Hanley [facility] 1..840.114 350.1.13.10 4.2.7.2.686 [id number] [facility] 2021-07-03 17:13:00 2021-07-04 15:09:00 Outpatient X WALTER GALLARDO [facility] [id number] [facility] 2021-07-03 17:13:00 2021-07-04 15:09:00 Emergency Nicolas Franco [place], Jelani [facility] 1.2840.114 350.1.13.10 4.2.7.2.686 [id number] [facility] 2021-03-31 09:45:34 2021-03-31 10:32:15 Office Visit [facility] 1.2.840.114 350.1.13.10 4.2.7.2.686 [id number] [facility] 2021-03-31 10:00:00 2021-03-31 10:00:00 Outpatient NAOMY GLEASON [facility] [id number] [facility] 2021-03-24 00:00:00 2021-03-24 00:00:00 OFFICE VISIT ESTAB PT LEVEL 4 STLMLC STLMLC [id number] [facility] 2021-01-03 10:00:00 2021-01-03 10:00:00 Outpatient Elis [facility] [id number] [facility] 2020-12-28 20:21:00 2020-12-28 23:40:00 Emergency Kassandra Yanely R [facility] 1.2.840.114 350.1.13.10 4.2.7.2.686 [id number] [facility] 2020-12-27 00:00:00 2020-12-27 00:00:00 Outpatient STLMLC STLMLC [id number] [facility] 2020-12-16 00:00:00 2020-12-16 00:00:00 Outpatient STLMLC STLMLC [id number] [facility] 2020-12-13 10:20:00 2020-12-13 10:26:15 Outpatient RAE LARSON [facility] [id number] [facility] 2020-12-09 00:00:00 2020-12-09 00:00:00 Outpatient STLMLC STLMLC [id number] [facility] 2020-12-03 00:00:00 2020-12-03 00:00:00 Outpatient STLMLC STLMLC [id number] [facility] 2020-11-24 00:00:00 2020-11-24 00:00:00 Outpatient STLMLC ST[facility]MLC [id number] [facility] 2020-11-24 00:00:00 2020-11-24 00:00:00 Outpatient STLMLC ST[facility]MLC [id number] [facility] 2020-11-20 11:45:00 2020-11-20 12:11:11 Outpatient Elis CANTOR RAE [facility] [id number] [facility] 2020-09-23 11:12:49 2020-09-23 11:58:33 [facility] 1.2.840.114 350.1.13.10 4.2.7.2.686 [id number] [facility] 2020-09-23 11:30:00 2020-09-23 11:30:00 Outpatient NAOMY GLEASON [facility] [id number] [facility] 2020-08-03 11:25:00 2020-08-03 14:25:00 Emergency Alexsander Falcon B [facility] 1.2.840.114 350.1.13.10 4.2.7.2.686 [id number] [facility] 2020-08-03 11:25:00 2020-08-03 14:25:00 Emergency X ALEXSANDER FALCON [facility] ERT [id number] [facility] 2020-07-06 09:14:07 2020-07-06 10:40:28 Office Visit Emilia Ortiz [facility] 1.2.840.114 350.1.13.10 4.2.7.2.686 [id number] [facility] 2020-07-06 09:15:00 2020-07-06 09:15:00 Outpatient R EMILIA ORTIZ [facility] [id number] [facility] 2020-06-29 00:00:00 2020-06-29 00:00:00 Outpatient STLMLC ST[facility]MLC [id number] [facility] 2020-03-25 11:26:28 2020-05-23 00:15:09 Office Visit Naomy Bravo [facility] 1..840.114 350.1.13.10 4.2.7.2.686 [id number] [facility] 2020-05-21 09:30:00 2020-05-21 09:30:00 Outpatient R [facility] [id number] [facility] 2020-05-21 00:00:00 2020-05-21 00:00:00 Orders Only Doctor Unassigned, [place] [facility] 1.840.114 350.1.13.10 4.2.7.2.686 [id number] [facility] 2020-05-18 11:20:00 2020-05-18 11:20:00 Outpatient YEYO LOCKHART [facility] [id number] [facility] 2020-05-14 10:00:00 2020-05-14 10:00:00 Outpatient ARGELIA TRUJILLO [facility] [id number] [facility] 2020-05-11 00:00:00 2020-05-11 00:00:00 Telephone Naomy Bravo [facility] 1..840.114 350.1.13.10 4.2.7.2.686 [id number] [facility] 2020-03-30 00:00:00 2020-03-30 00:00:00 Orders Only Doctor Unassigned, [place] [facility] 1.840.114 350.1.13.10 4.2.7.2.686 [id number] [facility] 2020-03-25 11:30:00 2020-03-25 11:30:00 Outpatient R NAOMY BRAVO [facility] [id number] [facility] 2020-03-03 10:45:00 2020-03-03 10:45:00 Outpatient [facility] [id number] [facility] 2020-01-22 09:30:00 2020-01-22 09:30:00 Outpatient R NAOMY BRAVO [facility] [id number] [facility] 2019-12-04 00:00:00 2019-12-04 00:00:00 Telephone Naomy Bravo [facility] 1.2.840.114 350.1.13.10 4.2.7.2.686 [id number] [facility] 2019-12-03 11:15:00 2019-12-03 11:15:00 Outpatient [facility] [id number] [facility] 2019-06-23 07:57:28 2019-12-02 19:39:27 Residential Driver Visit [facility], Adc Cardio Fac 2, Adc Cardio Fac Room [facility] 1.2.840.114 350.1.13.10 4.2.7.2.686 [id number] [facility] 2019-12-02 15:41:56 2019-12-02 16:28:44 Residential Driver Visit , Adc Vascular Room 1 - [facility] 1.2.840.114 350.1.13.10 4.2.7.2.686 [id number] [facility] 2019-12-02 16:00:00 2019-12-02 16:00:00 Outpatient R [facility] [id number] [facility] 2019-09-11 07:52:01 2019-10-17 00:36:19 Office Visit [facility] 1.2.840.114 350.1.13.10 4.2.7.2.686 [id number] [facility] 2019-10-17 00:00:00 2019-10-17 00:00:00 Telephone Naomy Bravo [facility] 1.2.114 350.1.13.10 4.2.7.2.686 [id number] [facility] 2019-09-10 09:40:00 2019-09-11 07:52:23 Outpatient Elis MCDOWELL ARGELIA [facility] [id number] [facility] 2019-09-10 00:00:00 2019-09-10 00:00:00 Orders Only Doctor Unassigned, [place] [facility] 1.114 350.1.13.10 4.2.7.2.686 [id number] [facility] 2019-09-05 00:00:00 2019-09-05 00:00:00 Telephone Naomy Bravo [facility] 1..114 350.1.13.10 4.2.7.2.686 [id number] [facility] 2019-09-04 09:00:00 2019-09-04 09:00:00 [facility] [id number] [facility] [facility] 2019-08-28 09:35:40 2019-08-29 15:54:44 Office Visit Naomy Bravo [facility] 1..114 350.1.13.10 4.2.7.2.686 [id number] [facility] 2019-08-29 00:00:00 2019-08-29 00:00:00 Telephone Naomy Bravo [facility] 1.2114 350.1.13.10 4.2.7.2.686 [id number] [facility] 2019-08-28 00:00:00 2019-08-28 00:00:00 Orders Only Doctor Unassigned, [place] [facility] [id number] 350.1.13.10 4.2.7.2.686 [id number] [facility] 2019-05-29 14:38:00 2019-05-29 14:38:[address] [facility] [id number] [facility] 2019-05-29 11:30:00 2019-05-29 11:30:[address] [facility] [id number] [facility] 2019-02-19 08:15:00 2019-02-19 08:15:[address] [facility] [id number] [facility] 2019-02-03 16:15:00 2019-02-03 16:15:[address] [facility] [id number] [facility] 2019-01-09 08:15:00 2019-01-09 08:15:[address] [facility] [id number] [facility] 2018-11-05 10:00:00 2018-11-05 10:00:[address] [facility] [facility] [id number] [facility] 2018-08-26 08:43:00 2018-08-26 08:43:[address] [facility] [id number] [facility] 2018-08-08 10:15:00 2018-08-08 10:15:[address] [facility] [id number] [facility] 2018-05-08 10:00:00 2018-05-08 10:00:[address] [facility] [id number] [facility] 2018-02-14 13:45:00 2018-02-14 13:45:00 [facility] [id number] [facility] 2018-02-14 13:45:00 2018-02-14 13:45:00 [facility] [id number] [facility] 2018-02-12 16:00:00 2018-02-12 16:00:00 [facility] [id number] [facility] 2018-02-12 15:28:00 2018-02-12 15:28:00 [facility] [id number] [facility] 2018-02-06 09:30:00 2018-02-06 09:30:00 [facility] [id number] [facility] 2018-01-28 14:50:00 2018-01-28 14:50:00 [facility] [id number] [facility] 2018-01-15 09:45:00 2018-01-15 09:45:00 [facility] [id number] [facility] 2018-01-02 09:30:00 2018-01-02 09:30:00 [facility] [id number] [facility] 2017-12-31 10:00:00 2017-12-31 10:00:[address] [facility] [id number] [facility] 2017-10-29 10:00:00 2017-10-29 10:00:[address] [facility] [id number] [facility] Results Test Description Test Time Test Comments Results Result Comments Source XR Humerus 2 vw left 17:23:59 CLINICAL HISTORY: Arm pain ORDERING PHYSICIAN: HUMBERTO TIPTON TECHNIQUE: AP and lateral radiographs of the left humerus were performed. COMPARISON: 05/18/2023 FINDINGS: No fracture, dislocation, or osseous erosions are seen. No grossradiographic soft tissue abnormality is seen. Subacromial narrowing isobserved. [facility] XR Shoulder 2+ vw left 17:22:45 CLINICAL HISTORY: Arm pain ORDERING PHYSICIAN: HUMBERTO TIPTON TECHNIQUE: 2 frontal radiographs of the left shoulder as well astransaxillary views of the left shoulder were performed. COMPARISON: 05/18/2023 FINDINGS: No fracture, dislocation or shoulder separation is observed. There is acomponent of subacromial narrowing which is less pronounced than that seenon the previous exam. 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 Pacemaker is noted with agenerator in the pectoral region. Prior median sternotomy is noted. [facility] 1 [id number] 05:19:21Ordering physician: ERNESTINE MILES Indication: Chest pain Comparison: Chest dated 05/10/2024 Technical quality: Adequate Findings: Single AP view of the chest. The cardiopericardial silhouette iswithin normal limits. The patient is status post median sternotomy. Thereis a 2-lead pacemaker. The lungs are clear bilaterally. The visualized bonythorax is intact.[facility] CenterTROP[facility]IN [id number] 05:06:57* Test Item Value Reference Range Interpretation Comme nts TROPONIN I (test code = 9311195264) 0.002 ng/mL <=0.034 ALDO (test code = [...] of biotin. Lab Interpretation (test code = 39707-3) Normal [facility] CenterCOMP. METABOLIC PANEL (13053)2024-08-15 04:56:34* Test Item Value Reference Range Interpretation Comme nts NA (test code = 6415550909) 140 mmol/L 135-145 K (test code = 7273626804) 4.3 mmol/L 3.5-5.0 CL (test code = 8616875897) 104 mmol/L 98-108 CO2 TOTAL (test code = 7969098362) 27 mmol/L 23-31 AGAP (test code = 8093837056) 9 2-16 BUN (test code = 1159696686) 30 mg/dL 7-23 H GLUCOSE (test code = 5691114486) 384 mg/dL 70-110 H CREATININE (test code = 2160-0) 1.39 mg/dL 0.50-1.04 H TOTAL BILI (test code = 9910385809) 1.0 mg/dL 0.1-1.1 CALCIUM (test code = 7003313308) 9.4 mg/dL 8.6-10.6 T PROTEIN (test code = 7610965407) 7.4 g/dL 6.3-8.2 ALBUMIN (test code = 6329900258) 4.7 g/dL 3.5-5.0 ALK PHOS (test code = 3561264072) 142 U/L 34-122 H ALTv (test code = 1742-6) 15 U/L 5-35 AST(SGOT) (test code = 2035620698) 22 U/L 13-40 eGFR (test code = 35143-9) 38.2 mL/min/1.73m2 CKD-EPI eGFR (2020). Assuming creatinine has been stable day-to-day for at least three months, the eGFR indicates Category G3b (30 - 44 mL/min/1.73 m2) Lab Interpretation (test code = 47074-3) Abnormal [facility] CenterLIPASE2025-01-24 04:56:13* Test Item Value Reference Range Interpretation Comme nts LIPASE (test code = 4658146063) 335 U/L 0-220 H Lab Interpretation (test cod e = 92171-8) Abnormal [facility] WITH [id number] 04:40:53* Test Item Value Reference Range Interpretation [...] g/dL 31.6-35.1 L RDW-SD (test code = 88295-7) 50.8 fL 39.0-49.9 H RDW-CV (test code = 788-0) 14.1 % 12.0-15.5 PLT (test code = 777-3) 208 166-358 MPV (test code = 42486-3) 10.5 fL 9.5-12.9 NRBC/100 WBC (test code = 2968507859) 0.0 0.0-10.0 NRBC x10^3 (test code = 2155380745) See_Comment [Automated messa ge] The system which generated this result transmitted reference range: 10*3/?L. The reference range was not used to interpret this result as normal/abnormal. GRAN MAT (NEUT) % (test code = 770-8) 61.1 % IMM GRAN % (test code = 8790413778) 0.30 % LYMPH % (test code = 736-9) 26.6 % MONO % (test code = 5905-5) 9.5 % EOS % (test code = 713-8) 1.7 % BASO % (test code = 706-2) 0.8 % GRAN MAT x10^3(ANC) (test code = 6819078098) 3.90 10*3/uL 1.88-7.09 IMM GRAN x10^3 (test code = 1977077424) 0.00-0.06 LYMPH x10^3 (test code = 731-0) 1.70 10*3/uL 1.32-3.29 MONO x10^3 (test code = 742-7) 0.61 10*3/uL 0.33-0.92 EOS x10^3 (test code = 711-2) 0.11 10*3/uL 0.03-0.39 BASO x10^3 (test code = 704-7) 0.05 10*3/uL 0.01-0.07 Lab Interpretation (test code = 19952-1) Abnormal [facility] CenterCOMPREHENSIVE METABOLIC [id number] 00:00:00* Test Item Value Reference Range Interpretation Comme nts HEMOGLOBIN A1c (test code = 4548-4) 7.5 % See_Comment H [Automated [employer]] The system which generated this result transmitted reference range: 4.2-5.6 %. The reference range was not used to interpret this result as normal/abnormal. CALC LDL CHOL (test code = 03984-0) 66 MG/DL See_Comment [Automated [employer]] The system which generated this result transmitted reference range: <100 MG/DL. The reference range was not used to interpret this result as normal/abnormal. CHOLESTEROL (test code = 2093-3) 137 MG/DL See_Comment [Automated [employer]] The system which generated this result transmitted reference range: <200 MG/DL. The reference range was not used to interpret this result as normal/abnormal. HDL CHOLESTEROL (test code = 2085-9) 47 MG/DL See_Comment [Automated [employer]] The system which generated this result transmitted reference range: >39 MG/DL. The reference range was not used to interpret this result as normal/abnormal. RISK RATIO LDL/HDL (test code = 73441-6) 1.40 RATIO See_Comment [Automated message] The system which generated this result transmitted reference range: <3.22 RATIO. The reference range was not used to interpret this result as normal/abnormal. TRIGLYCERIDES (test code = 2571-8) 163 MG/DL See_Comment H [Automated messa ge] The system which generated this result transmitted reference range: <150 MG/DL. The reference range was not used to interpret this result as normal/abnormal. BASOPHILS (test code = 69596-5) 0.9 % COMMENTS (test code = 15698-1) (NOTE) DIAGNOSIS: (test code = 19176-0) (NOTE) EOSINOPHILS (test code = 41608-6) 1.7 % HEMATOCRIT (test code = 56702-3) 36.4 % See_Comment [Automated messa ge] The [...] result as normal/abnormal. LYMPHOCYTES (test code = 76754-9) 29.3 % MCH (test code = 02464-1) 30.0 PG See_Comment [Automated messa ge] The system which generated this result transmitted reference range: 25.0-33.0 PG. The reference range was not used to interpret this result as normal/abnormal. MCHC (test code = 90816-3) 31.9 G/DL See_Comment [Automated messa ge] The system which generated this result transmitted reference range: 31.0-36.0 G/DL. The reference range was not used to interpret this result as normal/abnormal. MCV (test code = 94390-3) 94.1 fL See_Comment [Automated messa ge] The system which generated this result transmitted reference range: 80.0-99.0 fL. The reference range was not used to interpret this result as normal/abnormal. MICROSCOPIC DESCRIPTION: (test code = 73630-8) (NOTE) MONOCYTES (test code = 30411-4) 5.2 % NEUTROPHILS (test code = 88482-4) 62.9 % PATHOLOGIST: (test code = 55069-0) (NOTE) PLATELET COUNT (test code = 19279-2) 210 K/UL See_Comment [Automated messa ge] The system which generated this result transmitted reference range: 130-400 K/UL. The reference range was not used to interpret this result as normal/abnormal. RBC (test code = 26595-2) 3.87 M/UL See_Comment [Automated messa ge] The system which generated this result transmitted reference range: 3.80-5.40 M/UL. The reference range was not used to interpret this result as normal/abnormal. RDW (test code = 89206-8) 13.9 % See_Comment [Automated [employer]] The system which generated this result transmitted reference range: 11.5-15.0 %. The reference range was not used to interpret this result as normal/abnormal. WBC (test code = 73193-3) 7.1 K/UL See_Comment [Automated [employer]] The system which generated this result transmitted reference range: 3.5-11.0 K/UL. The reference range was not used to interpret this result as normal/abnormal. ALBUMIN, URINE, RANDOM (test code = 42633-8) 11.8 MG/DL NOT ESTAB MG/DL CALC ALBUMIN/CREAT, RND (test code = 51388-2) 120 MG/G See_Comment H [Automated messa ge] The system which generated this result transmitted reference range: <30 MG/G. The reference range was not used to interpret this result as normal/abnormal. CREATININE, URINE, CONC. (test code = 2161-8) 98.1 MG/DL NOT ESTAB MG/DL ALBUMIN (test code = 1751-7) 4.1 G/DL See_Comment [Automated [employer]] The system which generated this result [...] code = 1975-2) 0.9 MG/DL See_Comment [Automated [employer]] The system which generated this result transmitted reference range: <=1.2 MG/DL. The reference range was not used to interpret this result as normal/abnormal. BUN (test code = 3094-0) 14 MG/DL See_Comment [Automated messa ge] The system which generated this result transmitted reference range: 8-23 MG/DL. The reference range was not used to interpret this result as normal/abnormal. CALCIUM (test code = 57283-6) 9.1 MG/DL See_Comment [Automated messa ge] The [...] as normal/abnormal. CALC GLOBULIN (test code = 16968-6) 2.2 G/DL See_Comment [Automated messa ge] The [...] normal/abnormal. eGFR (2020 CKD-EPI) (test code = 93953-9) 59 ML/MIN/1.73 See_Comment L [Automated message] The [...] to interpret this result as normal/abnormal. urinalysis, [id number] 09:20:56* Test Item Value Reference Range Interpretation Comme nts Leukocytes (test code = Leukocytes) 1+ Nitrite (test code = Nitrite) negative Urobilinogen (test code = Urobilinogen) Normal Protein (test code = Protein) 1+ pH (test code = pH) 5.0 Blood (test code = Blood) Hemolyzed: Trace Specific [place] (test code = Specific [place]) 1.020 Ketone (test code = Ketone) Negative Bilirubin (test code = Bilirubin) Negative Glucose (test code = Glucose) Negative Appearance (test code = Appearance) Clear Color (test code = Color) Yellow [facility] [id number] 18:13:33* Test Item Value Reference Range Interpretation Comme nts TROPONIN I (test code = 3529530980) 0.005 ng/mL <=0.034 ALDO (test code = [...] of biotin. Lab Interpretation (test code = 32154-2) Normal [facility] [id number] 16:44:08* Test Item Value Reference Range Interpretation Comme [facility] TROPONIN I (test code = 6823425404) 0.004 ng/mL <=0.034 ALDO (test code = [...] of biotin. Lab Interpretation (test code = 21487-7) Normal [facility] CenterN-TERMINAL [id number] 16:41:47* Test Item Value Reference Range Interpretation Comme [facility] NT-proBNP (test code = 90477-6) 394 pg/mL <=125 ALDO (test code = ALDO) Result Indeterminate-Consid er causes of NT-proBNP elevation other than Heart failure such as acute coronary syndrome, pulmonary embolism, pulmonary hypertension, sepsis, stroke, and renal dysfunction. Lab Interpretation (test code = 61337-8) Abnormal [facility] CenterMagnesium2024-10-19 16:32:49* Test Item Value Reference Range Interpretation Comme nts MAGNESIUM (test code = 2178303162) 2.1 mg/dL 1.7-2.4 Lab Interpretation (test cod e = 75006-6) Normal [facility]. METABOLIC PANEL (21623)2024-05-10 16:32:29* Test Item Value Reference Range Interpretation Comme nts NA (test code = 7517716371) 137 mmol/L 135-145 K (test code = 3587820853) 4.5 mmol/L 3.5-5.0 CL (test code = 6361149596) 107 mmol/L 98-108 CO2 TOTAL (test code = 4281711613) 19 mmol/L 23-31 L AGAP (test code = 7305972994) 11 2-16 BUN (test code = 4060166969) 31 mg/dL 7-23 H GLUCOSE (test code = 7365154067) 186 mg/dL 70-110 H CREATININE (test code = 2160-0) 1.08 mg/dL 0.50-1.04 H TOTAL BILI (test code = 5936093907) 1.2 mg/dL 0.1-1.1 H CALCIUM (test code = 2154186139) 9.2 mg/dL 8.6-10.6 T PROTEIN (test code = 0131854119) 7.2 g/dL 6.3-8.2 ALBUMIN (test code = 2191677778) 4.3 g/dL 3.5-5.0 ALK PHOS (test code = 8266213322) 85 U/L 34-122 ALTv (test code = 1742-6) 19 U/L 5-35 AST(SGOT) (test code = 5298021065) 24 U/L 13-40 eGFR (test code = 58127-2) 51.7 mL/min/1.73m2 CKD-EPI eGFR (2020). Assuming creatinine has been stable day-to-day for at least three months, the eGFR indicates Category G3a (45 - 59 mL/min/1.73 m2) Lab Interpretation (test code = 81804-6) Abnormal [facility] WITH [id number] 16:17:31* Test Item Value Reference Range Interpretation [...] 32.0 g/dL 31.6-35.1 RDW-SD (test code = 83226-7) 49.2 fL 39.0-49.9 RDW-CV (test code = 788-0) 14.0 % 12.0-15.5 PLT (test code = 777-3) 224 166-358 MPV (test code = 66501-3) 9.8 fL 9.5-12.9 NRBC/100 WBC (test code = 4111066287) 0.0 0.0-10.0 NRBC x10^3 (test code = 7739145635) See_Comment [Automated messa ge] The system which generated this result transmitted reference range: 10*3/?L. The reference range was not used to interpret this result as normal/abnormal. GRAN MAT (NEUT) % (test code = 770-8) 66.0 % IMM GRAN % (test code = 7580945455) 0.30 % LYMPH % (test code = 736-9) 23.1 % MONO % (test code = 5905-5) 7.8 % EOS % (test code = 713-8) 1.5 % BASO % (test code = 706-2) 1.3 % GRAN MAT x10^3(ANC) (test code = 1323384044) 4.40 10*3/uL 1.88-7.09 IMM GRAN x10^3 (test code = 4507014308) 0.00-0.06 LYMPH x10^3 (test code = 731-0) 1.54 10*3/uL 1.32-3.29 MONO x10^3 (test code = 742-7) 0.52 10*3/uL 0.33-0.92 EOS x10^3 (test code = 711-2) 0.10 10*3/uL 0.03-0.39 BASO x10^3 (test code = 704-7) 0.09 10*3/uL 0.01-0.07 H Lab Interpretation (test code = 69320-1) Abnormal [facility] CenterHEMOGLOBIN [id number] 00:00:00* Test Item Value Reference Range Interpretation Comme [facility] HEMOGLOBIN A1c (test code = 4548-4) 7.3 % See_Comment H [Automated [employer]] The system which generated this result transmitted reference range: 4.2-5.6 %. The reference range was not used to interpret this result as normal/abnormal. [place] TIME OR (NON-REPORTABLE)2023-12-28 17:07:41These images do not require a Radiology diagnostic report.[facility] CenterFL TIME OR (NON-REPORTABLE)2023-12-28 17:07:41These images do not require a Radiology diagnostic report.[facility] GLUCOSE (AUTOMATED) 2023-12-28 13:04:41* Test Item Value Reference Range Interpretation Comme [facility] POCT GLU (test code = 9245487784) 135 mg/dL 70-110 H Lab Interpretation (test cod e = 49085-8) Abnormal [facility] GLUCOSE (AUTOMATED)2023-12-28 13:04:41* Test Item Value Reference Range Interpretation Comme [facility] POCT GLU (test code = 8013346500) 135 mg/dL 70-110 H Lab Interpretation (test cod e = 91671-6) Abnormal [facility] CenterN-Terminal Npx-[id number] 20:22:02* Test Item Value Reference Range Interpretation Comme [facility] NT-proBNP (test code = 28563-6) 557 pg/mL <=125 ALDO (test code = ALDO) Result Indeterminate-Consid er causes of NT-proBNP elevation other than Heart failure such as acute coronary syndrome, pulmonary embolism, pulmonary hypertension, sepsis, stroke, and renal dysfunction. Lab Interpretation (test code = 78358-2) Abnormal [facility] CenterMagnesium2024-04-19 20:13:19* Test Item Value Reference Range Interpretation Comme nts MAGNESIUM (test code = 7876977109) 2.1 mg/dL 1.7-2.4 Lab Interpretation (test cod e = 63177-5) Normal [facility] CenterBauofl [facility] Met[facility] Panel (NA, K, CL, CO2, GLUCOSE, BUN, CREATININE, CA)2023-11-09 20:12:59* Test Item Value Reference Range Interpretation Comme nts NA (test code = 4858094882) 137 mmol/L 135-145 K (test code = 6458679585) 4.8 mmol/L 3.5-5.0 CL (test code = 3238074661) 103 mmol/L 98-108 CO2 TOTAL (test code = 8187511187) 24 mmol/L 23-31 AGAP (test code = 6925141931) 10 2-16 BUN (test code = 8608336188) 27 mg/dL 7-23 H GLUCOSE (test code = 5446963728) 171 mg/dL 70-110 H CREATININE (test code = 2160-0) 1.20 mg/dL 0.50-1.04 H CALCIUM (test code = 1236787597) 8.6 mg/dL 8.6-10.6 eGFR (test code = 60386-4) 45.9 mL/min/1.73m2 CKD-EPI eGFR (2020). Assuming creatinine has been stable day-to-day for at least three months, the eGFR indicates Category G3a (45 - 59 mL/min/1.73 m2) Lab Interpretation (test code = 58408-4) Abnormal [facility] CenterElectrophysiology [id number] 01:19:02 Dual Chamber Pacemaker Implantation, ILR RemovalProcedure: [...] were no acute complications. Device Characteristics:Pulse generator: [employer] [place] [employer] Model L311 RA Lead: [place] ScientificModel 7841, P waves 3.9 mV, Impedance 549 ohms, Threshold 0.6 V@0.4msecRV Lead: [employer] Model 7842, R waves 9.1 mV, [...] to 8 weeks. Robert Sykes, MDCardiac Electrophysiology [facility] CenterCardiovascular [id number] 01:19:02Dual Chamber Pacemaker Implantation, ILR RemovalProcedure: Dual-chamber [...] were no acute complications. Device Characteristics:Pulse generator: [employer] Model L311 RA Lead: [place] AnkeModel 7841, P waves 3.9 mV, Impedance 549 ohms, Threshold 0.6 V@0.4msecRV Lead: [employer] Model 7842, R waves 9.1 mV, [...] in 6 to 8 weeks. Robert Sykes, [facility] ALTUSardiac Electrophysiology [facility] CenterCB WITH [id number] 15:06:17* Test Item Value Reference Range Interpretation [...] 32.2 g/dL 31.6-35.1 RDW-SD (test code = 76734-6) 47.5 fL 39.0-49.9 RDW-CV (test code = 788-0) 13.8 % 12.0-15.5 PLT (test code = 777-3) 210 166-358 MPV (test code = 83447-9) 9.6 fL 9.5-12.9 NRBC/100 WBC (test code = 6265454858) 0.0 0.0-10.0 NRBC x10^3 (test code = 2293912968) See_Comment [Automated messa ge] The system which generated this result transmitted reference range: 10*3/?L. The reference range was not used to interpret this result as normal/abnormal. GRAN MAT (NEUT) % (test code = 770-8) 68.1 % IMM GRAN % (test code = 2506444080) 0.30 % LYMPH % (test code = 736-9) 19.9 % MONO % (test code = 5905-5) 8.0 % EOS % (test code = 713-8) 2.8 % BASO % (test code = 706-2) 0.9 % GRAN MAT x10^3(ANC) (test code = 5728365474) 4.33 10*3/uL 1.88-7.09 IMM GRAN x10^3 (test code = 0917830363) 0.00-0.06 LYMPH x10^3 (test code = 731-0) 1.27 10*3/uL 1.32-3.29 L MONO x10^3 (test code = 742-7) 0.51 10*3/uL 0.33-0.92 EOS x10^3 (test code = 711-2) 0.18 10*3/uL 0.03-0.39 BASO x10^3 (test code = 704-7) 0.06 10*3/uL 0.01-0.07 Lab Interpretation (test code = 95116-4) Abnormal [facility] GLUCOSE (AUTOMATED)2023-05-19 15:19:17* Test Item Value Reference Range Interpretation Comme nts POCT GLU (test code = 6386934850) 123 mg/dL 70-110 H Lab Interpretation (test cod e = 99008-8) Abnormal [facility] GLUCOSE (AUTOMATED)2023-05-19 03:01:53* Test Item Value Reference Range Interpretation Comme nts POCT GLU (test code = 9376469910) 162 mg/dL 70-110 H Lab Interpretation (test cod e = 24137-6) Abnormal [facility] GLUCOSE (AUTOMATED)2023-05-18 21:46:59* Test Item Value Reference Range Interpretation Comme nts POCT GLU (test code = 0456952127) 155 mg/dL 70-110 H Lab Interpretation (test cod e = 90694-2) Abnormal [facility] CenterTROPONIN [id number] 17:11:56* Test Item Value Reference Range Interpretation Comme nts TROPONIN I (test code = 4959918040) 0.000 ng/mL <=0.034 ALDO (test code = [...] of biotin. Lab Interpretation (test code = 20421-0) Normal [facility] CenterN-TERMINAL [id number] 17:09:33* Test Item Value Reference Range Interpretation Comme nts NT-proBNP (test code = 44121-0) 244 pg/mL <=125 ALDO (test code = ALDO) Result Indeterminate-Consid er causes of NT-proBNP elevation other than Heart failure such as acute coronary syndrome, pulmonary embolism, pulmonary hypertension, sepsis, stroke, and renal dysfunction. Lab Interpretation (test code = 96993-5) Abnormal [facility] METABOLIC PANEL (NA, K, CL, CO2, GLUCOSE, BUN, CREATININE, CA)2023-05-18 16:59:54* Test Item Value Reference Range Interpretation Comme nts NA (test code = 4100504825) 139 mmol/L 135-145 K (test code = 1501839184) 5.0 mmol/L 3.5-5.0 CL (test code = 6861896879) 107 mmol/L 98-108 CO2 TOTAL (test code = 7258313192) 18 mmol/L 23-31 L AGAP (test code = 3916353779) 14 2-16 BUN (test code = 1034655498) 31 mg/dL 7-23 H GLUCOSE (test code = 1548895619) 171 mg/dL 70-110 H CREATININE (test code = 9094726813) 1.00 mg/dL 0.50-1.04 CALCIUM (test code = 1256697150) 8.9 mg/dL 8.6-10.6 eGFR (test code = 7626139220) 53.3 mL/min/1.73m2 ALDO (test code = ALDO) [...] imaging tests). Lab Interpretation (test code = 77463-4) Abnormal [facility] WITH [id number] 16:36:49* Test Item Value Reference Range Interpretation Comme nts WBC (test code = 6690-2) 7.21 See_Comment [Automated [employer]] The system which generated this result transmitted reference range: 4.30 - 11.10 10*3/?L. The reference range was not used to interpret this result as normal/abnormal. RBC (test code = 789-8) 3.39 See_Comment L [Automated [employer]] The system which generated this result transmitted [...] 32.7 g/dL 31.6-35.1 RDW-SD (test code = 95324-6) 47.6 fL 39.0-49.9 RDW-CV (test code = 788-0) 14.0 % 12.0-15.5 PLT (test code = 777-3) 216 See_Comment [Automated messa ge] The system which generated this result transmitted reference range: 166 - 358 10*3/?L. The reference range was not used to interpret this result as normal/abnormal. MPV (test code = 08413-8) 9.8 fL 9.5-12.9 NRBC/100 WBC (test code = 7166849602) 0.0 See_Comment [Automated [employer] ssage] The system which generated this result transmitted reference range: 0.0 - 10.0 /100 WBCs. The reference range was not used to interpret this result as normal/abnormal. NRBC x10^3 (test code = 2432395049) See_Comment [Automated [employer]] The system which generated this result transmitted reference range: 10*3/?L. The reference range was not used to interpret this result as normal/abnormal. GRAN MAT (NEUT) % (test code = 770-8) 68.9 % IMM GRAN % (test code = 2376884170) 0.30 % LYMPH % (test code = 736-9) 21.6 % MONO % (test code = 5905-5) 7.2 % EOS % (test code = 713-8) 1.2 % BASO % (test code = 706-2) 0.8 % GRAN MAT x10^3(ANC) (test code = 9159599492) 4.96 10*3/uL 1.88-7.09 IMM GRAN x10^3 (test code = 8930115991) 0.00-0.06 LYMPH x10^3 (test code = 731-0) 1.56 10*3/uL 1.32-3.29 MONO x10^3 (test code = 742-7) 0.52 10*3/uL 0.33-0.92 EOS x10^3 (test code = 711-2) 0.09 10*3/uL 0.03-0.39 BASO x10^3 (test code = 704-7) 0.06 10*3/uL 0.01-0.07 Lab Interpretation (test code = 77141-1) Abnormal [facility] [id number] 00:00:00* Test Item Value Reference Range Interpretation Comme [facility] HEMOGLOBIN A1c (test code = 4548-4) 6.7 % See_Comment H [Automated messa ge] The system which generated this result transmitted reference range: 4.2-5.6 %. The reference range was not used to interpret this result as normal/abnormal. POCT GLUCOSE (AUTOMATED)2023-04-10 22:02:48* Test Item Value Reference Range Interpretation Comme [facility] POCT GLU (test code = 7957437594) 121 mg/dL 70-110 H Lab Interpretation (test cod e = 63292-2) Abnormal [facility] (for use with Heparin Infusion)2023-04-10 19:50:47* Test Item Value Reference Range Interpretation Comme [facility] APTT Patient (test code = 3173-2) 50 See_Comment H [Automated messa ge] The system which generated this result transmitted reference range: 26 - 36 Seconds. The reference range was not used to interpret this result as normal/abnormal. Lab Interpretation (test code = 32199-6) Abnormal [facility] GLUCOSE (AUTOMATED)2023-04-10 19:17:26* Test Item Value Reference Range Interpretation Comme [facility] POCT GLU (test code = 0395053228) 153 mg/dL 70-110 H Lab Interpretation (test cod e = 90341-4) Abnormal [facility] GLUCOSE (AUTOMATED)2023-04-10 15:33:46* Test Item Value Reference Range Interpretation Comme [facility] POCT GLU (test code = 8651618692) 247 mg/dL 70-110 H Lab Interpretation (test cod e = 51274-5) Abnormal [facility] GLUCOSE (AUTOMATED)2023-04-10 12:47:59* Test Item Value Reference Range Interpretation Comme [facility] POCT GLU (test code = 0394115083) 173 mg/dL 70-110 H Lab Interpretation (test cod e = 35012-3) Abnormal [facility] ACT LOW [id number] 13:41:50* Test Item Value Reference Range Interpretation Comme nts ACTLR (test code = 2545078928) 339 See_Comment H [Automated messa ge] The system which generated this result transmitted reference range: 89 - 169 Seconds. The reference range was not used to interpret this result as normal/abnormal. Lab Interpretation (test code = 74842-7) Abnormal [facility] ACT LOW [id number] 13:41:50* Test Item Value Reference Range Interpretation Comme nts ACTLR (test code = 7634083367) 284 See_Comment H [Automated messa ge] The system which generated this result transmitted reference range: 89 - 169 Seconds. The reference range was not used to interpret this result as normal/abnormal. Lab Interpretation (test code = 74173-5) Abnormal [facility] GLUCOSE (AUTOMATED)2023-04-07 17:19:13* Test Item Value Reference Range Interpretation Comme nts POCT GLU (test code = 6963551632) 341 mg/dL 70-110 H Lab Interpretation (test cod e = 50764-2) Abnormal [facility] GLUCOSE (AUTOMATED)2023-04-07 17:19:13* Test Item Value Reference Range Interpretation Comme nts POCT GLU (test code = 5540344288) 341 mg/dL 70-110 H Lab Interpretation (test cod e = 46035-2) Abnormal [facility] GLUCOSE (AUTOMATED)2023-04-07 13:54:40* Test Item Value Reference Range Interpretation Comme nts POCT GLU (test code = 5829835312) 131 mg/dL 70-110 H Lab Interpretation (test cod e = 63772-6) Abnormal [facility] GLUCOSE (AUTOMATED)2023-04-07 13:54:40* Test Item Value Reference Range Interpretation Comme nts POCT GLU (test code = 1550656595) 131 mg/dL 70-110 H Lab Interpretation (test cod e = 27526-1) Abnormal [facility] GLUCOSE (AUTOMATED)2023-04-07 03:43:01* Test Item Value Reference Range Interpretation Comme nts POCT GLU (test code = 8196468639) 207 mg/dL 70-110 H Lab Interpretation (test cod e = 68739-9) Abnormal [facility] GLUCOSE (AUTOMATED)2023-04-07 03:43:01* Test Item Value Reference Range Interpretation Comme nts POCT GLU (test code = 6210311578) 207 mg/dL 70-110 H Lab Interpretation (test cod e = 69734-7) Abnormal [facility] GLUCOSE (AUTOMATED)2023-04-06 21:00:15* Test Item Value Reference Range Interpretation Comme nts POCT GLU (test code = 1438224578) 137 mg/dL 70-110 H Lab Interpretation (test cod e = 73153-7) Abnormal [facility] GLUCOSE (AUTOMATED)2023-04-06 21:00:15* Test Item Value Reference Range Interpretation Comme nts POCT GLU (test code = 2410439578) 137 mg/dL 70-110 H Lab Interpretation (test cod e = 76973-7) Abnormal [facility]TROP[facility] [id number] 07:17:35* Test Item Value Reference Range Interpretation Comme nts TROPONIN I (test code = 6196553475) 0.006 ng/mL <=0.034 ALDO (test code = [...] of biotin. Lab Interpretation (test code = 99971-2) Normal [facility]. METABOLIC PANEL (15714)2023-03-06 05:08:40* Test Item Value Reference Range Interpretation Comme nts NA (test code = 7328985938) 141 mmol/L 135-145 K (test code = 2701566926) 4.0 mmol/L 3.5-5.0 CL (test code = 2284600525) 105 mmol/L 98-108 CO2 TOTAL (test code = 5053256982) 26 mmol/L 23-31 AGAP (test code = 0121001802) 10 2-16 BUN (test code = 7398740873) 27 mg/dL 7-23 H GLUCOSE (test code = 4895586811) 163 mg/dL 70-110 H CREATININE (test code = 4093737345) 0.99 mg/dL 0.50-1.04 TOTAL BILI (test code = 4657296468) 1.0 mg/dL 0.1-1.1 CALCIUM (test code = 0665729665) 9.4 mg/dL 8.6-10.6 T PROTEIN (test code = 7471496754) 7.2 g/dL 6.3-8.2 ALBUMIN (test code = 3837324135) 4.2 g/dL 3.5-5.0 ALK PHOS (test code = 5214137066) 100 U/L 34-122 ALTv (test code = 1742-6) 18 U/L 5-35 AST(SGOT) (test code = 4344445683) 26 U/L 13-40 eGFR (test code = 4577173335) 54.0 mL/min/1.73m2 ALDO (test code = ALDO) [...] imaging tests). Lab Interpretation (test code = 36119-7) Abnormal [facility]TR[facility] [id number] 04:57:57* Test Item Value Reference Range Interpretation Comme nts TROPONIN I (test code = 4151571961) 0.004 ng/mL <=0.034 ALDO (test code = [...] of biotin. Lab Interpretation (test code = 68308-4) Normal [facility] CenterN-TERMINAL [id number] 04:55:15* Test Item Value Reference Range Interpretation Comme [facility] NT-proBNP (test code = 85314-2) 368 pg/mL <=125 ALDO (test code = ALDO) Result Indeterminate-Consid er causes of NT-proBNP elevation other than Heart failure such as acute coronary syndrome, pulmonary embolism, pulmonary hypertension, sepsis, stroke, and renal dysfunction. Lab Interpretation (test code = 75497-4) Abnormal [facility] CenterProthrombin Time / [id number] 04:40:36* Test Item Value Reference Range Interpretation Comme nts PROTIME PATIENT (test code = 5964-2) 13.1 See_Comment [Automated [employer]] The system which generated this result transmitted reference range: 12.0 - 14.7 Seconds. The reference range was not used to interpret this result as normal/abnormal. INR (test code = 6301-6) 1.0 Normal INR <1.1; Warfarin Therapeutic range 2.0 to 3.0 or 2.5 to 3.5, depending upon the indications. Lab Interpretation (test code = 52233-4) Normal [facility] CenterCBC WITH [id number] 04:32:55* Test Item Value Reference Range Interpretation [...] 32.7 g/dL 31.6-35.1 RDW-SD (test code = 51506-8) 48.0 fL 39.0-49.9 RDW-CV (test code = 788-0) 14.3 % 12.0-15.5 PLT (test code = 777-3) 188 See_Comment [Automated messa ge] The system which generated this result transmitted reference range: 166 - 358 10*3/?L. The reference range was not used to interpret this result as normal/abnormal. MPV (test code = 33247-1) 9.9 fL 9.5-12.9 NRBC/100 WBC (test code = 4569336049) 0.0 See_Comment [Automated [employer]age] The system which generated this result transmitted reference range: 0.0 - 10.0 /100 WBCs. The reference range was not used to interpret this result as normal/abnormal. NRBC x10^3 (test code = 4407543084) See_Comment [Automated messa ge] The system which generated this result transmitted reference range: 10*3/?L. The reference range was not used to interpret this result as normal/abnormal. GRAN MAT (NEUT) % (test code = 770-8) 53.8 % IMM GRAN % (test code = 1656846139) 0.20 % LYMPH % (test code = 736-9) 32.6 % MONO % (test code = 5905-5) 9.8 % EOS % (test code = 713-8) 2.9 % BASO % (test code = 706-2) 0.7 % GRAN MAT x10^3(ANC) (test code = 3505946143) 2.95 10*3/uL 1.88-7.09 IMM GRAN x10^3 (test code = 6302806826) 0.00-0.06 LYMPH x10^3 (test code = 731-0) 1.79 10*3/uL 1.32-3.29 MONO x10^3 (test code = 742-7) 0.54 10*3/uL 0.33-0.92 EOS x10^3 (test code = 711-2) 0.16 10*3/uL 0.03-0.39 BASO x10^3 (test code = 704-7) 0.04 10*3/uL 0.01-0.07 Lab Interpretation (test code = 86250-2) Abnormal [facility] CenterHEMOGLOB[facility] [id number] 00:00:00* Test Item Value Reference Range Interpretation Comme nts HEMOGLOBIN A1c (test code = 4548-4) 7.1 % See_Comment H [Automated messa ge] The system which generated this result transmitted reference range: 4.2-5.6 %. The reference range was not used to interpret this result as normal/abnormal. TROPONIN [id number] 02:56:03* Test Item Value Reference Range Interpretation Comments TROPONIN I (test code = 8300336066) 0.006 ng/mL See_Comment [Automated message] The system [...] of biotin. Lab Interpretation (test code = 89181-6) Normal [facility]. METABOLIC PANEL (63882)2022-08-20 02:38:00* Test Item Value Reference Range Interpretation Comme nts NA (test code = 1469640679) 139 mmol/L 135-145 K (test code = 0924891968) 4.5 mmol/L 3.5-5.0 CL (test code = 9739218440) 102 mmol/L 98-108 CO2 TOTAL (test code = 6090984841) 26 mmol/L 23-31 AGAP (test code = 9989286044) 2-16 BUN (test code = 9773466827) 17 mg/dL 7-23 GLUCOSE (test code = 5517519046) 139 mg/dL 70-110 H CREATININE (test code = 8787772116) 0.98 mg/dL 0.50-1.04 TOTAL BILI (test code = 7325067941) 0.9 mg/dL 0.1-1.1 CALCIUM (test code = 2411862416) 9.2 mg/dL 8.6-10.6 T PROTEIN (test code = 5734618727) 7.2 g/dL 6.3-8.2 ALBUMIN (test code = 7871957814) 4.5 g/dL 3.5-5.0 ALK PHOS (test code = 1619030610) 88 U/L 34-122 ALTv (test code = 1742-6) 16 U/L 5-35 AST(SGOT) (test code = 6368456456) 26 U/L 13-40 eGFR (test code = 7985801849) mL/min/1.73m2 ALDO (test code = ALDO) Association [...] imaging tests). Lab Interpretation (test code = 54953-5) Abnormal [facility] WITH [id number] 02:19:37* Test Item Value Reference Range Interpretation Comme nts WBC (test code = 6690-2) See_Comment H [[employer]] The system which generated this result transmitted reference range: 4.30 - 11.10 10*3/?L. The reference range was not used to interpret this result as normal/abnormal. RBC (test code = 789-8) See_Comment L [[employer]] The system which generated this result transmitted [...] 31.9 g/dL 31.6-35.1 RDW-SD (test code = 21563-1) 47.7 fL 39.0-49.9 RDW-CV (test code = 788-0) 14.1 % 12.0-15.5 PLT (test code = 777-3) See_Comment [Automated messa ge] The system which generated this result transmitted reference range: 166 - 358 10*3/?L. The reference range was not used to interpret this result as normal/abnormal. MPV (test code = 68339-7) 9.5 fL 9.5-12.9 NRBC/100 WBC (test code = 0215445476) See_Comment [Automated [employer]age] The system which generated this result transmitted reference range: 0.0 - 10.0 /100 WBCs. The reference range was not used to interpret this result as normal/abnormal. NRBC x10^3 (test code = 8160761565) See_Comment [Automated messa ge] The system which generated this result transmitted reference range: 10*3/?L. The reference range was not used to interpret this result as normal/abnormal. GRAN MAT (NEUT) % (test code = 770-8) 82.8 % IMM GRAN % (test code = 2983274275) 0.40 % LYMPH % (test code = 736-9) 8.9 % MONO % (test code = 5905-5) 6.1 % EOS % (test code = 713-8) 1.2 % BASO % (test code = 706-2) 0.6 % GRAN MAT x10^3(ANC) (test code = 0872016895) 9.30 10*3/uL 1.88-7.09 H IMM GRAN x10^3 (test code = 7149860447) 0.04 10*3/uL 0.00-0.06 LYMPH x10^3 (test code = 731-0) 1.00 10*3/uL 1.32-3.29 L MONO x10^3 (test code = 742-7) 0.68 10*3/uL 0.33-0.92 EOS x10^3 (test code = 711-2) 0.13 10*3/uL 0.03-0.39 BASO x10^3 (test code = 704-7) 0.07 10*3/uL 0.01-0.07 Lab Interpretation (test code = 16901-0) Abnormal [facility]Tran[facility]hor[facility] echo (TTE)2022-07-12 21:43:54* Test Item Value Reference Range Interpretation Comme nts Height (test code = 6078332611) in Weight (test code = 8569410543) lbs Systolic BP (test code = 6102593013) mmHg Diastolic BP (test code = 7480365712) mmHg Heart Rate (test code = 1502516798) bpm LVOT stroke volume (test code = 3081592218) 54.70 cm3 EF(Teich) (test code = 3001957388) 64.80 % LVIDD (test code = 9234909882) 4.10 cm LVIDS (test code = 3625604541) 2.70 cm Left Ventricular End Systolic Volume by Teichholz Method (test code = 0540761) 26.9 mL Left Ventricular End Diastolic Volume by Teichholz Method (test code = 4621956) 76.4 mL IVS (test code = 0146285434) 0.73 cm LVPWD (test code = 3121001382) 0.78 cm LVOT diameter (test code = 7284264672) 1.94 cm LVOT area (test code = 3436459753) 3.00 cm2 FS (test code = 2654057722) 35 % MV Peak E Courtney (test code = 6623240238) 72.8 cm/s MV Peak A Courtney (test code = 8263246841) 93.4 cm/s E/A ratio (test code = 3620073241) ratio E wave decelartion time (test code = 2623391644) 0.23 s LA volume (BP) (test code = 8164598255) 18.7 mL LVOT peak courtney (test code = 2358188845) 87.0 cm/s LVOT mn grad (test code = 3054974822) mmHg LA size (test code = 4001681748) 2.9 cm LAV(MOD-sp2) (test code = 7354770727) 10.30 mL LAV(MOD-sp4) (test code = 7770198805) 24.00 mL Tapse (test code = 1416603176) 1.22 cm Aortic valve mean velocity (test code = 5912505382) 74.5 cm/s Ao peak courtney (test code = 3415682187) 123.1 cm/s Ao VTI (test code = 2822752218) 25.2 cm AV LVOT peak gradient (test code = 1603056598) mmHg LVOT peak VTI (test code = 5663109401) 18.5 cm AV area by cont VTI (test code = 6780064594) 2.2 cm2 AV area peak courtney (test code = 1273847489) 2.1 cm2 LV V1 mean (test code = 4334248925) 54.70 cm/s Ao max PG (test code = 9255235003) 6.10 mm[Hg] MV Prop V (test code = 1878671506) 46.10 cm/s TR Peak Courtney (test code = 5519133366) 220.8 cm/s Triscuspid Valve Regurgitation Peak Gradient (test code = 1171791268) mmHg Ao root diam (test code = 0103066677) 2.90 cm AV peak gradient (test code = 5782911419) mmHg AV valve area (test code = 8920716315) 2.17 cm2 AV mean gradient (test code = 8890311433) mmHg Aortic root (test code = 9586541923) 2.9 cm Ao root annulus (test code = 1115714731) 2.9 cm PW (test code = 5075358830) 0.78 cm 0.6-1.1 EF - 2D (test code = 69809081) 64.80 % Interventricular Septum Diastolic Thickness by 2D (test code = 4503240) 0.73 cm LA Volume Index (BP) (test code = 3318119332) 13.6 mL/m2 BSA (test code = 1179501041) 1.37 m2 RV-pozo length (test code = 3137401291) 4.3 cm A4C EF (test code = 4709031960) 60.70 % EF(sp4-el) (test code = 6225646240) 58.50 % SV(MOD-sp4) (test code = 6945144262) 47.00 mL SV(sp4-el) (test code = 0330767496) 44.90 mL LV Diastolic Volume (BP) (test code = 3346403158) 68.7 mL A2C EF (test code = 9397030870) 61.80 % EF(MOD-bp) (test code = 2870667186) 60.10 % EF(sp2-el) (test code = 3863322523) 61.60 % LV Systolic Volume (BP) (test code = 2110579887) 27.4 mL SV(MOD-bp) (test code = 0505201408) 41.30 mL SV(MOD-sp2) (test code = 9050607666) 37.50 mL EF (test code = 7240331696) Left Ventricular Stroke Volume by 2-D Biplane-MOD (test code = 2992150) 41.3 mL LV Diastolic Volume Index (BP) (test code = 8158271024) 50.1 mL/m2 LV Systolic Volume Index (BP) (test code = 1443887743) 20.0 mL/m2 Radiology Study observation (narrative) (test code = 98058-8) ALDO (test code = ALDO) ?Left?Ventricle: Left ventricle size is normal. Increased wall thickness. There is concentric remodeling. Normal wall motion. Normal systolic function with a visually estimated EF of 55 - 60%. EF by 2D [place] biplane is 60%. Normal diastolic function. ?Right?Ventricle: [...] were obtained. Lumason ultrasound enhancing agent used. [facility] ([facility]E)2022-07-12 21:43:54* Test Item Value Reference Range Interpretation Comme nts Height (test code = 9765395777) in Weight (test code = 7348025348) lbs Systolic BP (test code = 3600012944) mmHg Diastolic BP (test code = 7505483668) mmHg Heart Rate (test code = 3168315885) bpm LVOT stroke volume (test code = 6159091365) 54.70 cm3 EF(Teich) (test code = 7748886061) 64.80 % LVIDD (test code = 1091460196) 4.10 cm LVIDS (test code = 9427202881) 2.70 cm Left Ventricular End Systolic Volume by Teichholz Method (test code = 7816527) 26.9 mL Left Ventricular End Diastolic Volume by Teichholz Method (test code = 9871440) 76.4 mL IVS (test code = 4633415742) 0.73 cm LVPWD (test code = 8285795262) 0.78 cm LVOT diameter (test code = 2673988896) 1.94 cm LVOT area (test code = 0464809683) 3.00 cm2 FS (test code = 0193685940) 35 % MV Peak E Courtney (test code = 3365053618) 72.8 cm/s MV Peak A Courtney (test code = 3357095642) 93.4 cm/s E/A ratio (test code = 2068621406) ratio E wave decelartion time (test code = 4300632665) 0.23 s LA volume (BP) (test code = 7048568911) 18.7 mL LVOT peak courtney (test code = 9570265056) 87.0 cm/s LVOT mn grad (test code = 1130476789) mmHg LA size (test code = 8335197365) 2.9 cm LAV(MOD-sp2) (test code = 3764698651) 10.30 mL LAV(MOD-sp4) (test code = 4680079353) 24.00 mL Tapse (test code = 8316923391) 1.22 cm Aortic valve mean velocity (test code = 8398470729) 74.5 cm/s Ao peak courtney (test code = 4400667740) 123.1 cm/s Ao VTI (test code = 3473699313) 25.2 cm AV LVOT peak gradient (test code = 3722280766) mmHg LVOT peak VTI (test code = 1337422434) 18.5 cm AV area by cont VTI (test code = 3360967391) 2.2 cm2 AV area peak courtney (test code = 4103702253) 2.1 cm2 LV V1 mean (test code = 5074119604) 54.70 cm/s Ao max PG (test code = 7772213837) 6.10 mm[Hg] MV Prop V (test code = 5181959145) 46.10 cm/s TR Peak Courtney (test code = 8585550226) 220.8 cm/s Triscuspid Valve Regurgitation Peak Gradient (test code = 3558499371) mmHg Ao root diam (test code = 9738359724) 2.90 cm AV peak gradient (test code = 5744879322) mmHg AV valve area (test code = 7079799612) 2.17 cm2 AV mean gradient (test code = 6227113029) mmHg Aortic root (test code = 4221812433) 2.9 cm Ao root annulus (test code = 6308207952) 2.9 cm PW (test code = 9031927621) 0.78 cm 0.6-1.1 EF - 2D (test code = 75060889) 64.80 % Interventricular Septum Diastolic Thickness by 2D (test code = 6852876) 0.73 cm LA Volume Index (BP) (test code = 3571707794) 13.6 mL/m2 BSA (test code = 5213873566) 1.37 m2 RV-pozo length (test code = 0483510843) 4.3 cm A4C EF (test code = 5873767546) 60.70 % EF(sp4-el) (test code = 5241022888) 58.50 % SV(MOD-sp4) (test code = 3975901422) 47.00 mL SV(sp4-el) (test code = 2293678349) 44.90 mL LV Diastolic Volume (BP) (test code = 3138948752) 68.7 mL A2C EF (test code = 8125841890) 61.80 % EF(MOD-bp) (test code = 9907050478) 60.10 % EF(sp2-el) (test code = 1439079695) 61.60 % LV Systolic Volume (BP) (test code = 4062200119) 27.4 mL SV(MOD-bp) (test code = 5219222580) 41.30 mL SV(MOD-sp2) (test code = 0297450828) 37.50 mL EF (test code = 3801502639) Left Ventricular Stroke Volume by 2-D Biplane-MOD (test code = 8045215) 41.3 mL LV Diastolic Volume Index (BP) (test code = 4992924478) 50.1 mL/m2 LV Systolic Volume Index (BP) (test code = 2685117885) 20.0 mL/m2 Radiology Study observation (narrative) (test code = 00526-5) ALDO (test code = ALDO) ?Left?Ventricle: Left [...] were obtained. Lumason ultrasound enhancing agent used. [facility] GLUCOSE (AUTOMATED)2022-07-12 18:54:46* Test Item Value Reference Range Interpretation Comme nts POCT GLU (test code = 0355453989) 146 mg/dL 70-110 H Lab Interpretation (test cod e = 45179-1) Abnormal [facility] GLUCOSE (AUTOMATED)2022-07-12 18:54:46* Test Item Value Reference Range Interpretation Comme nts POCT GLU (test code = 5180319269) 146 mg/dL 70-110 H Lab Interpretation (test cod e = 93956-4) Abnormal [facility] GLUCOSE (AUTOMATED)2022-07-12 15:00:17* Test Item Value Reference Range Interpretation Comme nts POCT GLU (test code = 3899201462) 132 mg/dL 70-110 H Lab Interpretation (test cod e = 69822-0) Abnormal [facility] GLUCOSE (AUTOMATED)2022-07-12 15:00:17* Test Item Value Reference Range Interpretation Comme nts POCT GLU (test code = 6110034450) 132 mg/dL 70-110 H Lab Interpretation (test cod e = 04159-5) Abnormal [facility] GLUCOSE (AUTOMATED)2022-07-12 03:47:57* Test Item Value Reference Range Interpretation Comme nts POCT GLU (test code = 8630739271) 173 mg/dL 70-110 H Lab Interpretation (test cod e = 51971-1) Abnormal [facility] GLUCOSE (AUTOMATED)2022-07-12 03:47:57* Test Item Value Reference Range Interpretation Comme nts POCT GLU (test code = 5055454252) 173 mg/dL 70-110 H Lab Interpretation (test cod e = 65871-8) Abnormal [facility] GLUCOSE (AUTOMATED)2022-07-12 00:11:45* Test Item Value Reference Range Interpretation Comme nts POCT GLU (test code = 2028036681) 236 mg/dL 70-110 H Lab Interpretation (test cod e = 13109-7) Abnormal [facility] GLUCOSE (AUTOMATED)2022-07-12 00:11:45* Test Item Value Reference Range Interpretation Comme nts POCT GLU (test code = 4885755734) 236 mg/dL 70-110 H Lab Interpretation (test cod e = 78524-6) Abnormal [facility] GLUCOSE (AUTOMATED)2022-07-11 22:59:10* Test Item Value Reference Range Interpretation Comme nts POCT GLU (test code = 1613550266) 195 mg/dL 70-110 H Lab Interpretation (test cod e = 30928-4) Abnormal [facility] GLUCOSE (AUTOMATED)2022-07-11 22:59:10* Test Item Value Reference Range Interpretation Comme nts POCT GLU (test code = 0103439015) 195 mg/dL 70-110 H Lab Interpretation (test cod e = 00955-5) Abnormal [facility]. METABOLIC PANEL (21115)2022-07-07 17:52:04* Test Item Value Reference Range Interpretation Comme nts NA (test code = 2125615551) 143 mmol/L 135-145 K (test code = 0517533356) 5.2 mmol/L 3.5-5.0 H CL (test code = 5578516354) 107 mmol/L 98-108 CO2 TOTAL (test code = 4009780756) 27 mmol/L 23-31 AGAP (test code = 3290972536) 2-16 BUN (test code = 7482998750) 28 mg/dL 7-23 H GLUCOSE (test code = 3252490501) 104 mg/dL 70-110 CREATININE (test code = 2777593980) 1.00 mg/dL 0.50-1.04 TOTAL BILI (test code = 3759798716) 1.2 mg/dL 0.1-1.1 H CALCIUM (test code = 2890048097) 8.9 mg/dL 8.6-10.6 T PROTEIN (test code = 5900931114) 6.9 g/dL 6.3-8.2 ALBUMIN (test code = 9553314020) 4.4 g/dL 3.5-5.0 ALK PHOS (test code = 7976671497) 72 U/L 34-122 ALTv (test code = 1742-6) 17 U/L 5-35 AST(SGOT) (test code = 5336960818) 27 U/L 13-40 eGFR (test code = 5341328774) mL/min/1.73m2 ALDO (test code = ALDO) Association [...] imaging tests). Lab Interpretation (test code = 03768-9) Abnormal [facility] ONA-UEL1923-19-16 17:46:24* Test Item Value Reference Range Interpretation Comme nts NT-proBNP (test code = 6876042848) 664 pg/mL See_Comment H [Automated message] The system which generated this result transmitted reference range: <=450. The reference range was not used to interpret this result as normal/abnormal. ALDO (test code = ALDO) Biotin has been reported to cause a negative bias, interpret results relative to patient's use of biotin. Lab Interpretation (test code = 74317-9) Abnormal [facility]TT2022-12-16 17:30:45* Test Item Value Reference Range Interpretation Comme [facility] APTT Patient (test code = 3173-2) See_Comment [Automated message] The system which generated this result transmitted reference range: 23 - 38 Seconds. The reference range was not used to interpret this result as normal/abnormal. ALDO (test code = ALDO) The [facility] patient population mean normal value for aPTT is 30 seconds. Lab Interpretation (test code = 24601-7) Normal [facility] CenterPROTHROMBIN TIME / [id number] 17:28:43* Test Item Value Reference Range Interpretation Comme [facility] PROTIME PATIENT (test code = 5964-2) See_Comment [Automated messa ge] The system which generated this result transmitted reference range: 12.0 - 14.7 Seconds. The reference range was not used to interpret this result as normal/abnormal. INR (test code = 6301-6) Normal INR <1.1; Warfarin Therapeutic range 2.0 to 3.0 or 2.5 to 3.5, depending upon the indications. Lab Interpretation (test code = 75938-7) Normal [facility] Center[facility] WITH [id number] 16:11:35* Test Item Value Reference Range Interpretation Comme [facility] WBC (test code = 6690-2) See_Comment [Automated messa ge] The system which [...] g/dL 31.6-35.1 L RDW-SD (test code = 92184-0) 48.5 fL 39.0-49.9 RDW-CV (test code = 788-0) 14.6 % 12.0-15.5 PLT (test code = 777-3) See_Comment [Automated [employer] ge] The system which generated this result transmitted reference range: 166 - 358 10*3/?L. The reference range was not used to interpret this result as normal/abnormal. MPV (test code = 76044-8) 9.6 fL 9.5-12.9 NRBC/100 WBC (test code = 4873771107) See_Comment [Automated [employer] ssage] The system which generated this result transmitted reference range: 0.0 - 10.0 /100 WBCs. The reference range was not used to interpret this result as normal/abnormal. NRBC x10^3 (test code = 3096404730) See_Comment [Automated [employer]ica[employer] ge] The system which generated this result transmitted reference range: 10*3/?L. The reference range was not used to interpret this result as normal/abnormal. GRAN MAT (NEUT) % (test code = 770-8) 72.8 % IMM GRAN % (test code = 3470679900) 0.30 % LYMPH % (test code = 736-9) 17.4 % MONO % (test code = 5905-5) 6.8 % EOS % (test code = 713-8) 1.8 % BASO % (test code = 706-2) 0.9 % GRAN MAT x10^3(ANC) (test code = 5389676890) 5.65 10*3/uL 1.88-7.09 IMM GRAN x10^3 (test code = 7508673734) 0.00-0.06 LYMPH x10^3 (test code = 731-0) 1.35 10*3/uL 1.32-3.29 MONO x10^3 (test code = 742-7) 0.53 10*3/uL 0.33-0.92 EOS x10^3 (test code = 711-2) 0.14 10*3/uL 0.03-0.39 BASO x10^3 (test code = 704-7) 0.07 10*3/uL 0.01-0.07 Lab Interpretation (test code = 72928-7) Abnormal [facility] History and Physical Notes Date/Time Note Provider Source 2023-04-06 14:33:23 Formatting of this n ote is different from the original. 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 No valvular pathology noted. [facility] 04/06/23 Coronary dominance: left Left main: Patent LM stent LAD: Large. FINISHING INSPECTOR LCX: Large,dominant, proximal stent with 70% ISR (IVUS indicative ISR with stent under-expansion, MLA 3.7 mm^2 and 71.9% stenosis; 3.5 [place] Balloon; 4.0 NC; minimal residual stenosis), [...] distal vessel is of small caliber. Distal FINISHING INSPECTOR. Distal vessel is supplied by R==>L collaterals SVG to OM: Known to be occluded. LVEDP: 7 mmHg Impression: Severe chilkoot disease Patent MCBRIDE to LAD Severe pLCx [...] 1 mg, PRN Associated attestation - Fuad Solzi MD - 04/07/2023 12:57 PM CDT I discussed the patient and agree with the management and plan as outlined in the resident's note, written by Dr. Lemus . Please see the resident's note for additional details. 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 Ayon and Mustapha Faculty: [facility] Indication/Diagnosis: Stable Angina Consent source: self Consent type: indications/complications discussed with patient/legal guardian; written consent obtained Time out completed: yes Aseptic technique: Chlorprep Local Anesthesia: 1% lidocaine without epinephrine Sedation: fentanyl 25 mcg, Versed 1 mg Access site: right femoral artery Closure Method: Angio-Seal Sterile dressing: yes Complications: none Findings: Coronary dominance: left Left main: Patent LM stent LAD: Large. FINISHING INSPECTOR LCX: Large,dominant, proximal stent with 70% ISR (IVUS indicative ISR with stent under-expansion, MLA 3.7 mm^2 and 71.9% stenosis; 3.5 [place] Balloon; 4.0 NC; minimal residual stenosis), [...] distal vessel is of small caliber. Distal FINISHING INSPECTOR. Distal vessel is supplied by R==>L collaterals [...] recovering from sedation. Complications: None Impression: Severe chilkoot disease Patent MCBRIDE to LAD Severe pLCx [...] recur, LM-LCx lithotripsy will be considered +/- PTCA/BAR TENDER of p-mRCA Findings and plan discussed with patient and family Naga Lakhani M.D. Interventional Cardiology Pager: [phone] IM-INTERVENTIONAL CARDIOLOGY STAFF [facility] Notes Date/Time Note Provider Source 2024-11-29 13:17:45 Patient given discharge instructions on arm pain. No prescriptions given. Pt advised to follow up with pcp. Pt left ER ambulatory with adult. [facility] 2024-11-29 13:07:59 Sling applied to left arm. T [facility] 2024-11-29 10:10:19 Daughter states: "She's have pain in her left arm for the last week. She had an US but we haven't got the results yet. She had this test done a while back (US showed acute thrombus left axillary vein -05/22/24). They put her on eliquis for 2 weeks" Geri Saldana RN [facility] 2024-10-17 09:30:00 Addended by: NAOMY BRAVO on: 10/17/2024 10:13 AM Modules accepted: Orders [facility] 2024-10-13 13:15:41 Images from the original note [...] Bravo MD Last refill: 10/12/2024 Rx #: [id number]|0|1 Cardiovascular: Nitrates Hpoqzh9310/12/2024 04:35 PM Protocol Details Valid encounter within last 12 months To be filled at: [id number] - [place], [place] - [address] Per RIN 06/13/24 HTN: [...] KAYA LAMAS Kaya Lamas RN [facility] 2024-09-02 09:53:53 notified pts daughter of referral. Referral and information faxed to Dr. Miller office. ANNA Kelly RN [facility] 2024-09-01 22:28:44 Addended by: NAOMY BRAVO on: 09/01/2024 10:28 PM Modules accepted: Orders [facility] 2024-09-01 22:27:46 Referral for hematology made. Please ask her to follow-up with dermatology in [place] locally. Please ask her to continue the current dose of Eliquis until seen by hematology. Please fax the last office note and also the recent venous Doppler study along with hematology referral. [facility] 2024-09-01 09:16:56 Images from the [...] if she has established care with hematology. ANNA Lamas RN [facility] 2024-08-29 09:00:00 No evidence of internal jugular vein or LEFT upper extremity deep venous thrombosis Please verify with the patient if she has established care with hematology. [facility] 2024-08-15 16:27:[address] Bravo 06/13/24 CISE PHYSIOLOGIST Luciano Figueroa RN [facility] 2024-08-15 00:07:40 Pt given printed and verbal [...] apparent distress, ANNA Wheeler RN [facility] 2024-08-14 22:55:41 Nurse Report Report given to ALEC Estrada. Chief complaint, assessment findings, infusion verify and orders reviewed. Plan of care discussed at bedside with patient and both nurses. Patient/family members verbalized understanding. PINA PEREZ RN CISE PHYSIOLOGIST Pina Perez RN [facility] 2024-08-14 22:02:50 Pt states that chest pain started around 9 pm today. Pt took one dose of nitro PHOTOENGRAVER but realized it was so pt did not take any more meds. ANNA Foley RN [facility] 2024-06-17 09:25:24 Notified pt of physician recommendations to keep vascular testing ordered by Dr. Thorpe as scheduled. Daughter verbalized understanding. CISE PHYSIOLOGIST Piedad Kelly RN [facility] 2024-06-16 21:28:48 Images from the original note were not included. Chart reviewed. The vascular testing orders were placed by Dr. Thorpe. She has an appointment with Dr. Thorpe after the completion of the lower extremity Doppler in June. Would recommend getting the testing done as recommended by the vascular surgery team. [facility] 2024-06-16 09:31:54 Pt would like to reschedule her low ext art doppler from June to August. This way all testing can be done the same day. Will forward to Dr. Bravo to request new order for lower ext arterial doppler since this one will . CISE PHYSIOLOGIST Piedad Kelly RN [facility] 2024-06-15 13:23:36 Outside ultrasound report dated 05/22/2024 [...] after the August ultrasound appointment is complete. [facility] 2024-06-13 14:58:26 Results of scan from [facility] ER and notification that pt was prescribed eliquis 5mg. Pt was prescribed to take this twice daily, but daughter says she has only been taking it once daily. Will forward to Dr. Bravo for review. CISE PHYSIOLOGIST Piedad Kelly RN [facility] 2024-05-23 16:38:08 Looks like patient was went to [place] ER. No records available in [facility]. If the patient has DVT, agree with starting Eliquis. Would recommend following up with hematology to see why he developed a DVT. [facility] 2024-05-10 13:25:22 Patient given printed and verbal [...] apparent distress. Pina Perez RN [facility] 2024-05-10 10:51:26 Patient to ED for left sided chest pain that got worse at 7am. Pain does not radiate. Pain started yesterday. Jeff Nelson RN [facility] 2024-05-10 10:43:00 Associated Order(s): EKG-12 Lead ROUTINE ONCE Pre-Procedure Diagnose(s): Chest pain, unspecified type Post-Procedure Diagnose(s): Chest pain, unspecified type [facility] Emergency Department Note Patient Name: Justin Parekh Date of : 1945 79 year old female Treatment Room: TX1/TX1 Primary Care Physician: Glen Parra Patient Escorted by: Family [5] Mode of Arrival: Personal means [1] EMS Treatment Prior to ED Arrival: PHOTOENGRAVER treatment: None Travel and Exposure Screening: Symptoms [...] 20. She also previously underwent CABG in 2016. She is history of coronary disease, diabetes, high blood pressure as well as high cholesterol. She does follow with Dr. Fracnis with cardiology. She does not smoke. Here [...] Bilateral 12/28/2023 Surgeon: Liang Thorpe MD; Location: [facility] CAROT[facility] ENDARTERECTOMY Bilateral CORONARY ARTERY BYPASS GRAFT [...] 0.01 - 0.07 10*3/uL COMP. METABOLIC PANEL (72844) - Abnormal NA 137 135 - 145 [...] VW CBC WITH DIFF COMP. METABOLIC PANEL (96018) TROPONIN I N-TERMINAL PRO-BNP Magnesium TROPONIN I [...] ED Physician in the absence of a ammonia still operator: yes Interpretation: Interpretation: normal Rate: ECG rate: [...] discharge home with outpatient follow-up with her ammonia still operator. Problems Addressed: Chest pain, unspecified type: acute [...] on file Follow-up: Contact information for follow-up Glen Parra Specialty: FAMILY MEDICINE Relationship: PCP - [address] [address] Electronically signed by: Micaela Howard DO 05/10/24 1318 [facility] 2024-05-08 14:54:10 Medication refills given. Notified appointment needed before more refills approved. Kathy Santacruz LVN 05/08/2024 2:55 PM Kathy Santacruz LVN [facility] 2024-01-22 10:42:50 Access Center: [facility] Open Encounter Maintenance Chart Review: Patient had procedure on 12/28/2023. Nurse Note: RN closing encounter in EPIC r/t clinical action items completed. Catrachita Montero RN [facility] Access Center Triage Nurse Catrachita Montero RN [facility] 2023-12-31 08:17:54 Images from the original note were not included. Requested Prescriptions Pending Prescriptions Disp Refills isosorbide mononitrate 120 mg 24 hr tablet 30 tablet 3 Sig: Take 1 tablet by mouth in the morning. Patient compliant with refill guidelines. Cardiovascular: Nitrates Paeyvj1712/30/2023 01:51 PM Protocol Details Valid encounter within last 12 months Luciano Figueroa RN [facility] 2023-12-25 13:27:06 12/26/23- NO SURGICAL CONSENT PRESENT CURRENTLY.Tana STARR RN Mine Starr RN [facility] 2023-12-24 14:13:22 Patient is scheduled for a procedure on 12/27, she needs to know which medication to stop taking, Please assist, contact patients daughter to let her know which medication, [phone] Evelyn Yanes [facility] 2023-11-12 11:48:04 Images from the original note were not included. Notified patient's daughter Rukhsana per Dr Bravo: Naomy Bravo MD P Cardiology Nurse BNP acceptable. BMP within acceptable limits except mildly elevated Cr. Mag Normal Continue with current meds with no changes. Rpt BMP alone after adequate hydration in 2 weeks. Verbal understanding. BMP orders placed. [facility] 2023-11-09 12:30:00 Images from the original note were not included. Venipuncture collection performed by clean technique on the left anticubitus. Total of 1 attempts were made. Slight pressure and a bandage/dressing were applied to the site(s). The patient experienced no complications. The following specimens were processed according to instructions and sent to [facility] laboratories per lab order on 11/09/2023 : LT BLUE SST 1 RED LAV PPT DK GREEN (LiHep) DK GREEN (SodH) AVINA DK BLUE (K2) DK BLUE (S) ACD Blood Culture NIPT/NTD [facility] 2023-11-09 12:30:00 BNP acceptable. BMP within acceptable limits except mildly elevated Cr. Mag Normal Continue with current meds with no changes. Rpt BMP alone after adequate hydration in 2 weeks. [facility] 2023-11-09 12:30:00 Addended by: NAOMY BRAVO on: 11/14/2023 05:31 PM Modules accepted: Orders [facility] 2023-11-05 15:58:59 Patient's daughter notified of Dr. Bravo's recommendations. She said that she will take her mom to have labs done on Sunday when she comes for her CT scan. She will send the BP log this evening. Luciano Figueroa RN [facility] 2023-11-04 19:11:30 Recommended BMP/BNP to be done to assess leg swelling. Please ask her to send us the blood pressure log also. [facility] 2023-10-26 16:49:53 Spoke with daughter and appt scheduled for Sunday for evaluation. Scarlett Hopper LVN [facility] 2023-10-25 09:45:50 Spoke with patient's daughter. She states the leg swelling is similar to previously observed leg swelling, however, she is noticing that her mom's feet are swelling more often. Does not improve with elevation. She denies pain, shortness of breath, or any additional concerns. RIN 09/17/[address] Thorpe (vascular surgery). They sent a message to his office as well for advice. Luciano Figueroa RN [facility] 2023-09-19 12:48:33 Spoke with patient's daughter, arrival time was given at 6:15AM. CISE PHYSIOLOGIST Jayden Mchugh RN [facility] 2023-09-18 14:30:04 Instructions were given, however, we still need a time for procedure. Will f/u with time. CISE PHYSIOLOGIST Aminta Chaney RN [facility] 2023-09-18 14:22:48 [facility] EP LAB PRE-CALL INSTRUCTIONS EP Instructions were [...] Hospital Garage via [address] from either [address] or [address]. Bring your parking ticket with you to be validated, only one parking ticket may be validated per patient. There may be a possibility of hospital admission or late evening discharge; therefore, bring leisure reading and an overnight bag. On the day of your procedure, come directly to the Electrophysiology Lab wet chemistry analyst desk, located on the 6th floor of [facility] (2M- [phone].) You will be escorted to the Cardiac [...] read and verbalizes understanding of teaching provided. [facility] [employer] 2023-09-14 16:06:57 [facility] EP LAB PRE-CALL INSTRUCTIONS EP Instructions were [...] Hospital Garage via [address] from either [address] or [address]. Bring your parking ticket with you to be validated, only one parking ticket may be validated per patient. There may be a possibility of hospital admission or late evening discharge; therefore, bring leisure reading and an overnight bag. On the day of your procedure, come directly to the Electrophysiology Lab wet chemistry analyst desk, located on the 6th floor of [facility] (2J- [phone].) You will be escorted to the Cardiac [...] read and verbalizes understanding of teaching provided. [facility] 2023-09-10 08:50:[address] [facility] 2023-09-10 08:42:[address] Jones for pre op lab orders. [facility] 2023-09-10 08:30:00 Images from the original note were not included. Venipuncture collection performed by clean technique on the left anticubitus. Total of 1 attempts were made. Slight pressure and a bandage/dressing were applied to the site(s). The patient experienced no complications. The following specimens were processed according to instructions and sent to [facility] laboratories per lab order on 09/10/2023 : LT BLUE 1 SST 1 RED LAV 1 PPT DK GREEN (LiHep) DK GREEN (SodH) AVINA DK BLUE (K2) DK BLUE (S) ACD Blood Culture NIPT/NTD [facility] 2023-08-24 08:49:43 Spoke with patients daughter and appt. For next week given. Verbalized understanding and agreed. ANNA Savage LVN [facility] 2023-08-24 08:45:58 Justin Parekh is a 78 year old female Patient EC returning call Please call at [phone] Warm transferred to clinic nurse ANNA Stallings [facility] 2023-08-24 08:43:29 Tried to return call, message left. [facility] 2023-08-24 07:40:42 Electrograms reviewed, consistent with sinus pauses. Please schedule patient for EP follow up in my clinic next week. OK to overbook. Thank You, Robert Sykes MD [facility] IM-CLINICAL CARDIAC ELECTROPHYSIOLOGY STAFF [facility] 2023-08-23 16:15:30 Images from the original note were not included. Multiple pauses seen on ILR. Spoke to pt's daughter and she has been getting dizzy spells and per daughter her legs are swollen. Next EPMD appt on [facility] is in 05/15. EMS/ED precautions given and daughter stated will call Provider today. She is amenable to come in earlier for EP appt. Will notify EPMD. [facility] Phong Rubio RN [facility] 2023-07-16 17:47:49 Addended by: NAOMY BRAVO on: 07/16/2023 05:47 PM Modules accepted: Orders [facility] 2023-07-16 17:47:26 Prescription refills sent today. [facility] 2023-07-13 13:23:42 Received refill request [...] Dept 06/29/23 Office Visit Naomy Bravo MD [facility] Cardiology Faculty 05/17/23 Office Visit Stephanie Sykes MD [facility] 05/07/23 Office Visit Naga Lakhani MD [facility] 04/20/23 Office Visit Naomy Bravo MD [facility] 03/07/23 Office Visit Naomy Bravo MD [facility] 11/16/22 Office Visit Brandon Arias MD [facility] 10/13/22 Office Visit Naomy Bravo MD [facility] Faculty 08/24/22 Office Visit Naomy rBavo MD [facility] Cardiology Faculty Showing recent visits within past 365 days and meeting all other requirements Future Appointments Date Type Provider Dept 11/02/23 Appointment Naomy Bravo MD [facility] Cardiology Faculty 11/05/23 Appointment Naga Lakhani MD [facility] Cardiology Faculty 05/15/24 Appointment Stephanie Sykes MD [facility] Cardiology Faculty Showing future appointments within next [...] Dept 06/29/23 Office Visit Naomy Bravo MD [facility] Cardiology Faculty 05/17/23 Office Visit Stephanie Sykes MD [facility] Cardiology Faculty 05/07/23 Office Visit Naga Lakhani MD [facility] Cardiology Faculty 04/20/23 Office Visit Naomy Bravo MD [facility] Cardiology Faculty 03/07/23 Office Visit Naomy Bravo MD [facility] Cardiology Faculty 11/16/22 Office Visit Brandon Arias MD [facility] Cardiology Faculty 10/13/22 Office Visit Naomy Bravo [...] other requirements Refilled approval sent to: Pharmacy: [id number] - [place], [place] - [address] [facility] [employer] [address] [place] [id number] Refilled based on current protocol and last office visit note. Deloris Carroll 07/13/2023 1:24 certification technician Visit on 06/29/2023 Component Date Value WBC [...] 05/19/2023 2.0 POCT GLU 05/19/2023 123 (H) ANNA Carroll [facility] 2023-04-10 17:17:08 Formatting of this n ote might be different from the original. Problem: Glucose control Goal: Glucose level within specified parameters 04/10/20231716 by Susan Zelaya, ALEC Outcome: Adequate for discharge 04/10/20231710 by Susan Zelaya, ALEC Outcome: Progressing as expected 04/10/2023 1239 by Susan Zelaya, ALEC Outcome: Progressing as expected Problem: Cardiac Output - Decreased Goal: Cardiac output within specified parameters 04/10/20231716 by Susan Zelaya RN Outcome: Adequate for discharge 04/10/2023 1711 by Susan Zelaya RN Outcome: Progressing as expected 04/10/2023 1239 by Susan Zelaya RN Outcome: Progressing as expected Goal: Absence of signs and symptoms of decreased cardiac output 04/10/2023 1717 by Susan Zelaya RN Outcome: [...] as expected Susan Zelaya RN [facility] 2023-04-10 17:11:47 Formatting of this n ote might be different from the original. Problem: Glucose control Goal: Glucose level within specified parameters 04/10/20231710 by Susan Zelaya RN Outcome: Progressing as expected 04/10/2023 1239 by Susan Zelaya RN Outcome: Progressing as expected Problem: Cardiac Output - Decreased Goal: Cardiac output within specified parameters 04/10/20231710 by Susan Zelaya RN Outcome: Progressing as expected 04/10/2023 1239 by Susan Zelaya RN Outcome: Progressing as expected Goal: Absence of signs and symptoms of decreased cardiac output 04/10/2023 171 by Susan Zelaya RN Outcome: Progressing as expected 04/10/2023 1239 by Susan Zelaya RN Outcome: Progressing as expected Problem: Bleeding, Risk of Goal: Absence of impaired coagulation signs and symptoms 04/10/2023 1711 by Susan Zelaya RN Outcome: Progressing as expected 04/10/2023 1239 by Susan Zelaya RN Outcome: Progressing as expected Goal: Absence of active bleeding 04/10/2023 1711 by Susan Zelaya RN Outcome: Progressing as expected 04/10/2023 1239 by Susan Zelaya RN Outcome: Progressing as expected [facility] 2023-04-10 12:39:10 Formatting of this n ote [...] of active bleeding Outcome: Progressing as expected [facility] 2023-04-10 06:37:11 Formatting of this n ote might be different from the original. Problem: Glucose control Goal: Glucose level within specified parameters Outcome: Progressing as expected [facility] Adrián Rosales RN [facility] 2023-04-07 14:33:39 Formatting of this n ote might be different from the original. Problem: Discharge Planning Goal: Adequate for discharge Outcome: Adequate for discharge Goal: Effective communication Outcome: Adequate for discharge Problem: Falls, Risk of Goal: Absence of falls Outcome: Adequate for discharge Problem: Procedure Routine Goal: Absence of post-procedure complications Outcome: Adequate for discharge Goal: Knowledge of procedure Outcome: Adequate for discharge [facility] 2023-04-07 04:07:50 Formatting of this n ote [...] of procedure Outcome: Progressing as expected T Donn Bernard RN [facility] 2023-04-06 16:23:19 Formatting of this n ote [...] Knowledge of procedure Outcome: Progressing as expected [facility] 2023-04-04 11:11:51 Formatting of this n ote might be different from the original. [facility] CARDIAC CATH PRE-CALL INSTRUCTIONS Cardiac Cath Instructions [...] Hospital Garage via [address] from either [address] or [employer]. Bring your parking ticket with you to be validated, only one parking ticket may be validated per patient. There may be a possibility of hospital admission or late evening discharge; therefore, bring leisure reading and an overnight bag. On the day of your procedure, come directly to the Cardiac Gang Mower Operator wet chemistry analyst desk, located on the 6th floor of [facility] ([phone].) You will be escorted to the Cardiac Cath recovery room. Please call the Cardiac Gang Mower Operator at if you have any questions regarding [...] teaching provided. Susan Fitch RN [facility] 2023-04-01 17:18:47 Formatting of this n ote [...] CBC within acceptable stable limits. [facility] 2023-03-30 10:15:00 Formatting of this n ote is different from the original. Images from the original note were not included. Venipuncture collection performed by clean technique on the left anticubitus. Total of 1 attempts were made. Slight pressure and a bandage/dressing were applied to the site(s). The patient experienced no complications. The following specimens were processed according to instructions and sent to [facility] laboratories per lab order on 03/30/2023: LT BLUE SST 1 RED LAV 2 PPT DK GREEN (LiHep) DK GREEN (SodH) AVINA DK BLUE (K2) DK BLUE (S) ACD Blood Culture NIPT/NTD [facility] 2023-03-30 08:58:08 Formatting of this n ote [...] since Dr. Bravo not in clinic today. Luciano Figueroa RN [facility] 2023-03-14 13:13:46 Formatting of this n ote might be different from the original. Called patient to schedule Left Heart Cath, with Dr. Lakhani. Spoke to pts' daughter, Anthony. She agreed to 04/06, lab appt made for 03/30. Dari Coyle [facility] 2023-03-06 10:02:12 Formatting of this n ote [...] to see Dr. Bravo tomorrow at 10:30. Luciano Figueroa RN [facility] 2023-03-06 08:59:03 Formatting of this n ote might be different from the original. Patient presented to the ER yesterday for chest pain. Troponins x2 were negative. I was called by the ER physician. There were no beds in [facility]. Hence due to negative troponins x2, patient [...] is currently doing at home. [facility] 2023-03-06 02:33:27 Formatting of this n ote [...] apparent distress, Kathy Cortez RN [facility] 2023-03-05 22:54:00 Formatting of this n ote might be different from the original. Patient came in with complaints of left-sided chest pain that radiates to her left arm since 9PM. Edda Juárez RN [facility] 2023-02-12 14:28:13 Formatting of this n ote [...] by daughter. Yanely Peralta RN [facility] 2023-02-12 12:31:04 Formatting of this n ote might be different from the original. Patient to ED for pain to left foot after dropping a phone on it last Sunday. There is bruising and swelling. Patient is ambulatory. Jeff Nelson RN [facility] 2023-02-12 12:22:00 Formatting of this n ote is different from the original. [facility] Emergency Department Note Patient Name: Justin Parekh Date of : 1945 78 year old female Treatment Room: [place] [address] Primary Care Physician: Glen Parra Patient Escorted by: Family [5] Mode [...] N/A 07/02/2017 Surgeon: Mona Rondon MD; Location: [facility] ENDOSCOPIC VEIN HARVEST (SHX) Left 07/02/2017 Surgeon: Mona Rondon MD; Location: [facility] EYE SURGERY Bilateral 2016 cataract [...] Electronically signed by: Mary Mejia DO 02/12/23 0634 Mary Mejia DO 02/12/23 1427 Mary Mejia DO 02/12/23 1427 [facility]
[2024-12-11] MEDS ORDERED: NA CHLORIDE 0.9% 1,000 ML ONE (12:17)
[2024-12-11 12:18] LABS: Absolute Basophils 0.1 K/uL (0-0.5); Absolute Eosinophils 0.2 K/uL (0-0.5); Absolute Lymphocytes (CBC) 2.2 K/uL (0.7-4.9); Absolute Monocytes 0.5 K/uL (0.1-1.3); Absolute Neutrophil 5.7 K/uL (1.8-8.0); Basophils % 0.7 % (0-1.3); Eosinophils % 2.2 % (0-4.4); Hematocrit 33.4 % (36.0-45.0); Hemoglobin 11.6 g/dL (12.0-15.0); Lymphocytes % 25.3 % (15.3-44.8); MCH 31.6 pg (27.0-35.0); MCHC 34.8 g/dL (32.0-36.0); MCV 90.9 fL (80-100); MPV 7.7 fL (7.6-11.3); Monocytes % 6.1 % (3.3-12.3); Neutrophils % 65.7 % (41.7-73.7); Platelets 223 thou/uL (152-406); RBC Red Blood Cell Count 3.67 M/uL (3.86-4.86)
[2024-12-11 12:25] LABS: PT Prothrombin Time 11.8 SECONDS (10-13.0); Protime INR 1.04
[2024-12-11 12:40] LABS: Albumin 3.3 g/dL (3.4-5.0); Anion Gap 13.1 mEq/L (5.0-15.0); Bilirubin Direct 0.2 mg/dL (0-0.2); Bilirubin Indirect, Calculated 0.5 mg/dL (0.2-0.8); Bilirubin Total 0.7 mg/dL (0.2-1.0); Globulin 3.2 g/dL (2.3-3.5); Potassium 4.1 mEq/L (3.5-5.1); Protein, Total 6.5 g/dL (6.4-8.2); Troponin High Sensitivity 5.8 pg/mL (<58.9)
--- NOTE | 2024-12-11 12:40 | ER ---
Nurse's Notes [facility] Name: Sherri Parekh Age: 79 yrs Sex: Female : 1945 Arrival Date: 12/11/2024 Time: 11:45 Bed 16 Private MD: Diagnosis: Traumatic subarachnoid hemorrhage;Fall on same level, unspecified;Unspecified injury of head, initial encounter Presentation: 12/11 11:52 Chief complaint: Patient states: Cyrus funny, then passed out. Hematoma to head, neck ll1 pain, and tailbone pain since. EMS states: VSS, FS128. Coronavirus screen: Client denies travel out of the [place] in the last 14 days. At this time, the client does not indicate any symptoms associated with coronavirus-19. Ebola Screen: Patient denies travel to an Ebola-affected area in the 21 days before illness onset. Initial Sepsis Screen: Does the patient meet any 2 criteria? No. Patient's initial sepsis screen is negative. Does the patient have a suspected source of infection? No. Patient's initial sepsis screen is negative. Risk Assessment: Do you want to hurt yourself or someone else? Patient reports no desire to harm self or others. Onset of symptoms was December 11, 2024. 11:52 Method Of Arrival: EMS: [facility] 1 11:52 Acuity: OTTO 2 ll1 Triage Assessment: 11:54 General: Appears uncomfortable, Behavior is calm, cooperative, appropriate for age, ll1 Reports fatigue for. Pain: Complains of pain in scalp Pain currently is 8 out of 10 on a pain scale. Quality of pain is described as aching, throbbing. Neuro: Reports dizziness, a syncopal episode weakness. Musculoskeletal: Reports pain in scalp, neck, tailbone. Historical: - Allergies: 11:54 No Known Allergies; ll1 - PMHx: 11:54 CAD; Diabetes - NIDDM; High Cholesterol; Hypertension; ll1 - PSHx: 11:54 Coronary Angioplasty; Coronary artery bypass graft; ll1 - Immunization history:: Adult Immunizations up to date. - Infectious Disease History:: Denies. - Social history:: Smoking status: Patient denies any tobacco usage or history of. - Family history:: not pertinent. Screenin:31 [facility] ED Fall Risk Assessment (Adult) History of falling in the last 3 months, jb4 including since admission Yes- single mechanical fall (1 pt) Confusion or Disorientation No (0 pts) Intoxicated or Sedated No (0 pts) Impaired Gait No (0 pts) Mobility Assist Device Used No (0 pt) Altered Elimination No (0 pt) Score/Fall Risk Level 0 - 2 = Low Risk Oriented to surroundings, Maintained a safe environment. Abuse screen: Denies threats or abuse. Nutritional screening: No deficits noted. Tuberculosis screening: No symptoms or risk factors identified. Assessment: 13:31 Reassessment: Patient appears in no apparent distress at this time. Patient and/or jb4 family updated on plan of care and expected duration. Pain level reassessed. Patient is alert, oriented x 3, equal unlabored respirations, skin warm/dry/pink. 13:36 Reassessment: Report given to ALEC Lyn at [facility]. jb4 Vital Signs: 11:52 BP 149 / 71; Pulse 70; Resp 16; Temp 98.1; Pulse Ox 96% on R/A; Weight 46.72 kg; Height ll1 4 ft. 8 in. ; Pain 8/10; 13:31 BP 158 / 61; Pulse 82; Resp 16; Pulse Ox 100% on R/A; jb4 11:52 Body Mass Index 23.09 (46.72 kg, 142.24 cm) ll1 11:52 Pain Scale: Adult ll1 Witter Coma Score: 13:31 Eye Response: spontaneous(4). Motor Response: obeys commands(6). Verbal Response: jb4 oriented(5). Total: 15. ED Course: 11:52 Patient arrived in ED. ll1 11:52 Juventino Walden MD is Attending Physician. [facility] 11:52 Arm band placed on Patient placed in an exam room, on a stretcher. ll1 11:54 Triage completed. ll1 12:05 Initial lab(s) drawn, by ut, sent to lab. ll1 12:13 Inserted saline lock: 22 gauge in right forearm, using aseptic technique. Blood ll1 collected. Flushed with 10 mL NS. 12:15 Head C Spine Mpr Wo Con In Process Unspecified. EDMS 12:15 Chest Abd Pelvis Wo Con In Process Unspecified. EDMS 12:22 Timi Zamora, ALEC is Primary Nurse. jb4 12:35 XRAY Chest (1 view) In Process Unspecified. EDMS 12:43 EKG done, by ED staff, reviewed by Juventino Walden MD. am7 12:47 E. ty 13:31 Patient has correct armband on for positive identification. Bed in low position. Call jb4 light in reach. Side rails up X 1. Provided Education on: need for tansfer. 13:31 No provider procedures requiring assistance completed. Patient transferred, IV remains jb4 in place. Administered Medications: 12:26 Drug: NS 0.9% IV 1000 ml IV at 1000 ml once; to be given as a bolus over 60 minutes jb4 Route: IV; Rate: 1000 ml; Site: right forearm; 13:30 Follow up: Response: No adverse reaction; IV Status: Completed infusion; IV Intake: jb4 1000ml 13:30 Drug: Keppra IV 1000 mg IV at per protocol once Route: IV; Rate: per protocol; Site: jb4 right forearm; 13:31 Follow up: IV Status: Infusion continued upon transfer jb4 Medication: 13:31 VIS not applicable for this client. jb4 Intake: 13:30 IV: 1000ml; Total: 1000ml. jb4 Outcome: 12:40 ER care complete, transfer ordered by MD. phillips 13:36 Transferred by ground EMS to [facility], Transfer form completed. X-rays sent jb4 w/ patient. 13:36 Condition: stable 13:36 Discharge instructions given to patient, family, Instructed on the need for transfer, Demonstrated understanding of instructions, 13:37 Patient left the ED. jb4 Signatures: Dispatcher [employer] EDJuventino Carrington MD MD cha Bryson, James RN RN jb4 Feli Lamas RN RN ll1 Huseyin Mccauley Abigail am7
--- NOTE | 2024-12-11 12:41 | EDPHYS ---
Physician Documentation [facility] Name: Sherri Parekh Age: 79 yrs Sex: Female : 1945 Arrival Date: 12/11/2024 Time: 11:45 Bed 16 Private MD: ED Physician Juventino Walden HPI: 12/11 12:31 This 79 yrs old Female presents to ER via EMS with complaints of Syncope, jacqueline Closed Head Injury-Adult. 12:31 The patient has experienced near-syncope, felt dizzy, felt faint. Onset: The jacqueline symptoms/episode began/occurred just prior to arrival. Duration: This was a single episode, that lasted 20 second(s). Context: the episode(s) was witnessed, by family, occurred at home. Associated injury: Head/face: left baptist. Associated signs and symptoms: Pertinent positives: dizziness. Current symptoms: Currently, the patient is not experiencing any symptoms, headache, that is mild. The patient has not experienced similar symptoms in the past. Historical: - Allergies: 11:54 No Known Allergies; ll1 - PMHx: 11:54 CAD; Diabetes - NIDDM; High Cholesterol; Hypertension; ll1 - PSHx: 11:54 Coronary Angioplasty; Coronary artery bypass graft; ll1 - Immunization history:: Adult Immunizations up to date. - Infectious Disease History:: Denies. - Social history:: Smoking status: Patient denies any tobacco usage or history of. - Family history:: not pertinent. ROS: 12:37 Constitutional: Negative for fever, chills, and weight loss, Eyes: Negative for injury, jacqueline pain, redness, and discharge, ENT: Negative for injury, pain, and discharge, Neck: Negative for injury, pain, and swelling, Cardiovascular: Negative for chest pain, palpitations, and edema, Respiratory: Negative for shortness of breath, cough, wheezing, and pleuritic chest pain, Abdomen/GI: Negative for abdominal pain, nausea, vomiting, diarrhea, and constipation, Back: Negative for injury and pain, : Negative for injury, bleeding, discharge, and swelling, MS/Extremity: Negative for injury and deformity, Skin: Negative for injury, rash, and discoloration, Psych: Negative for depression, anxiety, suicide ideation, homicidal ideation, and hallucinations, Allergy/Immunology: Negative for hives, rash, and allergies, Endocrine: Negative for neck swelling, polydipsia, polyuria, polyphagia, and marked weight changes, Hematologic/Lymphatic: Negative for swollen nodes, abnormal bleeding, and unusual bruising, 12:37 Neuro: Positive for headache, weakness, Exam: 12:37 Constitutional: This is a well developed, well nourished patient who is awake, alert, jacqueline and in no acute distress. Eyes: Pupils equal round and reactive to light, extra-ocular motions intact. Lids and lashes normal. Conjunctiva and sclera are non-icteric and not injected. Cornea within normal limits. Periorbital areas with no swelling, redness, or edema. ENT: Nares patent. No nasal discharge, no septal abnormalities noted. Tympanic membranes are normal and external auditory canals are clear. Oropharynx with no redness, swelling, or masses, exudates, or evidence of obstruction, uvula midline. Mucous membranes moist. Neck: Trachea midline, no thyromegaly or masses palpated, and no cervical lymphadenopathy. Supple, full range of motion without nuchal rigidity, or vertebral point tenderness. No Meningismus. Chest/axilla: Normal chest wall appearance and motion. Nontender with no deformity. No lesions are appreciated. Cardiovascular: Regular rate and rhythm with a normal S1 and S2. No gallops, murmurs, or rubs. Normal PMI, no JVD. No pulse deficits. Respiratory: Lungs have equal breath sounds bilaterally, clear to auscultation and percussion. No rales, rhonchi or wheezes noted. No increased work of breathing, no retractions or nasal flaring. Abdomen/GI: Soft, non-tender, with normal bowel sounds. No distension or tympany. No guarding or rebound. No evidence of tenderness throughout. Back: No spinal tenderness. No costovertebral tenderness. Full range of motion. Skin: Warm, dry with normal turgor. Normal color with no rashes, no lesions, and no evidence of cellulitis. MS/ Extremity: Pulses equal, no cyanosis. Neurovascular intact. Full, normal range of motion., bilateral aka Neuro: Awake and alert, GCS 15, oriented to person, place, time, and situation. Cranial nerves II-XII grossly intact. Motor strength 5/5 in all extremities. Sensory grossly intact. Cerebellar exam normal. Normal gait. Psych: Awake, alert, with orientation to person, place and time. Behavior, mood, and affect are within normal limits. 12:37 Head/face: Noted is contusion, hematoma, that is moderate, of the top of head and left baptist, 12:41 ECG was reviewed by the Attending Physician. [facility] Vital Signs: 11:52 BP 149 / 71; Pulse 70; Resp 16; Temp 98.1; Pulse Ox 96% on R/A; Weight 46.72 kg; Height ll1 4 ft. 8 in. ; Pain 8/10; 13:31 BP 158 / 61; Pulse 82; Resp 16; Pulse Ox 100% on R/A; jb4 11:52 Body Mass Index 23.09 (46.72 kg, 142.24 cm) ll1 11:52 Pain Scale: Adult ll1 Becky Coma Score: 13:31 Eye Response: spontaneous(4). Motor Response: obeys commands(6). Verbal Response: jb4 oriented(5). Total: 15. MDM: 11:52 Medical Screening Exam initiated jacqueline 12:34 Differential Diagnosis: aortic aneurysm, cardiac arrhythmia, GI bleed, seizure, jacqueline vasovagal episode. Data reviewed: vital signs, nurses notes, EMS record, lab test result(s), EKG, radiologic studies, CT scan, plain films. Consideration of Admission/Observation Patient was admitted/placed on observation. Escalation of care including admission/observation considered. I considered the following discharge prescriptions or medication management in the emergency department Medications were administered in the Emergency Department. See MAR. Independent interpretation of the following test(s) in the Emergency Department EKG: See my EKG interpretation above. Test considered but Not performed: MRI: NO MRI. Historians other than the Patient: EMS: EMS WELL INFORMED. Care significantly affected by the following chronic conditions: Diabetes, Hypertension. Counseling: I had a detailed discussion with the patient and/or guardian regarding the historical points, exam findings, and any diagnostic results supporting the discharge/admit diagnosis, lab results, radiology results. 12/11 11:55 Order name: Basic Metabolic Panel; Complete Time: 13:08 [facility] 12/11 11:55 Order name: CBC with Diff; Complete Time: 12:40 [facility] 12/11 11:55 Order name: LFT's; Complete Time: 13:08 [facility] 12/11 11:55 Order name: Magnesium; Complete Time: 13: [facility] 12/11 11:55 Order name: NT PRO-BNP; Complete Time: 13:08 [facility] 12/11 11:55 Order name: PT-INR; Complete Time: 12:40 [facility] 12/11 11:55 Order name: Troponin HS; Complete Time: 13:08 [facility] 12/11 11:55 Order name: XRAY Chest (1 view) [facility] 12/11 12:00 Order name: Head C Spine Mpr Wo Con; Complete Time: 13:08 [facility] 12/11 12:01 Order name: Chest Abd Pelvis Wo Con; Complete Time: 13:08 [facility] 12/11 11:55 Order name: Cardiac monitoring; Complete Time: 12:11 [facility] 12/11 11:55 Order name: EKG - Nurse/Tech; Complete Time: 12:43 [facility] 12/11 11:55 Order name: IV Saline Lock; Complete Time: 11:57 [facility] 12/11 11:55 Order name: Labs collected and sent; Complete Time: 11:57 [facility] 12/11 11:55 Order name: O2 Per Protocol; Complete Time: 11:57 [facility] 12/11 11:55 Order name: O2 Sat Monitoring; Complete Time: 11:57 [facility] EC:41 Rate is 69 beats/min. Rhythm is regular. QRS Davy is Normal. SD interval is normal. QRS jacqueline interval is normal. QT interval is normal. No Q waves. T waves are Normal. No ST changes noted. Clinical impression: NSR w/ Non-specific ST/T Changes and No evidence of ischemia. Interpreted by me. Reviewed by me. Administered Medications: 12:26 Drug: NS 0.9% IV 1000 ml IV at 1000 ml once; to be given as a bolus over 60 minutes jb4 Route: IV; Rate: 1000 ml; Site: right forearm; 13:30 Follow up: Response: No adverse reaction; IV Status: Completed infusion; IV Intake: jb4 1000ml 13:30 Drug: Keppra IV 1000 mg IV at per protocol once Route: IV; Rate: per protocol; Site: jb4 right forearm; 13:31 Follow up: IV Status: Infusion continued upon transfer jb4 Disposition Summary: 12/11/24 12:40 Transfer Ordered Notes: Transfer Location: [facility] jacqueline Reason: Higher level of care jacqueline Condition: Fair jacqueline Problem: new jacqueline Symptoms: have improved jacqueline Accepting Physician: [facility](12/11/24 13:37) jb4 Diagnosis - Traumatic subarachnoid hemorrhage jacqueline - Fall on same level, unspecified jacqueline - Unspecified injury of head, initial encounter jacqueline Forms: - Medication Reconciliation Form jacqueline - SBAR form jacqueline Signatures: Dispatcher [employer] EDJuventino Carrington MD MD cha Bryson, James, RN RN jb4 Feli Lamas RN RN ll1 Corrections: (The following items were deleted from the chart) 11:55 11:55 BASIC METABOLIC PANEL+C.LAB.BRZ ordered. EDMS EDMS 11: 11:55 CBC+H.LAB.BRZ ordered. EDMS EDMS 11: 11:55 HEPATIC FUNCTION+C.LAB.BRZ ordered. EDMS EDMS 11: 11:55 MAGNESIUM+C.LAB.BRZ ordered. EDMS EDMS 11: 11:55 PROBNP+C.LAB.BRZ ordered. EDMS EDMS 11: 11:55 PROTIME (+INR)+COAG.LAB.BRZ ordered. EDMS EDMS 11: 11:55 Troponin High Sensitivity+C.LAB.BRZ ordered. EDMS EDMS 11: 11:55 UA Rfx Robbi Cult if indicated+U.LAB.BRZ ordered. EDMS EDMS 11:56 11:56 Chest Single View+RAD.RAD.BRZ ordered. EDMS EDMS 11:56 11:56 Head C Spine Cap Wo Con+CT.RAD.BRZ ordered. EDMS EDMS 13:37 12:40 [facility] jacqueline jb4
--- NOTE | 2024-12-11 12:42 | RAD REPORT ---
EXAM: CT CHEST, ABDOMEN AND PELVIS WITHOUT CONTRAST CLINICAL INDICATION: Female, 79 years old. [facility] MAIN SYNCOPE TECHNIQUE: CT chest, abdomen and pelvis was performed, without IV contrast, as per department protoco l. Axial, sagittal and coronal reconstructions were obtained. One or more of the following dose reduction techniques were used: Automated exposure control, adjustment of the mA and/or kV according to the patient size, and/or iterative reconstruction. Unless otherwise specified, incidental findings do not require dedicated imaging follow-up. COMPARISON: No prior exam. FINDINGS: The lack of intravenous contrast limits the sensitivity of this exam for evaluation of solid visceral organs, vascular structures, and retroperitoneum. Chest: LOWER NECK/CHEST WALL: Visualized thyroid gland and soft tissues are normal. LUNGS AND AIRWAYS: Airways are clear. No evidence of airspace or interstitial process. No nodules. PLEURA: No pleural effusion. No pneumothorax. Hemidiaphragms are normally positioned. MEDIASTINUM AND LYMPH NODES: No mediastinal mass or fluid collection. Normal size mediastinal, hilar, and axillary lymph nodes. Sequelae of median sternotomy. Left chest wall pacer place. THORACIC AORTA: Normal caliber and configuration. PULMONARY ARTERIES: Normal caliber. HEART: Unremarkable. Abdomen/Pelvis LIVER: Normal in size and contour. No focal lesion. GALLBLADDER/BILE DUCTS: Status post cholecystectomy. PANCREAS: No mass, ductal dilation, or zully-pancreatic fluid. SPLEEN: Normal size. No focal lesion. ADRENALS: Normal; no mass. KIDNEYS AND URETERS: Normal size and contour. No hydronephrosis. GASTROINTESTINAL TRACT: Stomach is non-dilated. Small bowel has normal course and caliber. No colonic wall thickening or pericolonic inflammatory changes. Distal colonic diverticulosis, without evidence of acute diverticulitis PERITONEUM: No free fluid. LYMPH NODES: No lymphadenopathy. ABDOMINAL AORTA AND OTHER VESSELS: Normal caliber aorta and IVC. URINARY BLADDER: Normal contour. REPRODUCTIVE ORGANS: No pathologic process. MUSCULOSKELETAL: No acute or suspicious osseous abnormality. ADDITIONAL FINDINGS: None IMPRESSION: No acute or traumatic abnormalities in the chest, abdomen, or pelvis. Incidental findings including distal colonic diverticulosis
--- NOTE | 2024-12-11 12:52 | RAD REPORT ---
EXAM: CT brain without contrast HISTORY: SYNCOPE COMPARISON: 04/11/2021 TECHNIQUE: Multiple contiguous axial images were obtained and a CT of the brain without contrast. Sag ittal and coronal reformats were performed. FINDINGS: Mild left frontoparietal sulci and hyperdense blood products compatible with subarachnoid hemorrhage, extending into the sylvian fissure. Mild hyperdense component along the left tentorial leaflet, possibly extending along the left prepontine cistern, may suggest another component of subarachnoid h emorrhage versus a small subdural hematoma measuring up to 3 mm in thickness. Trace right posterior parafalcine subarachnoid hemorrhage as well. No significant mass effect or midline shift. No evidence of hydrocephalus, parenchymal hemorrhage, or extra-axial fluid collection. The brain is normal in morphology. The calvarium is intact. Left scalp mild hematoma with swelling The visualized paranasal sinuses and mastoid air cells are essentially clear. IMPRESSION: Left frontoparietal sulci mild subarachnoid hemorrhage. Trace hemorrhage along the right posterior fa lx as well. Small hyperdense left infratentorial subarachnoid component versus small subdural hemorrhage measuring up to 3 mm in thickness. THIS REPORT CONTAINS FINDINGS THAT MAY BE CRITICAL TO PATIENT CARE. The findings were verbally commun icated via telephone to Juventino Walden MD on 12/11/2024 12:43 PM. EXAM: CT of the cervical spine without contrast HISTORY: SYNCOPE COMPARISON: None TECHNIQUE: Multiple contiguous axial images were obtained in a CT of the cervical spine without contr ast. Sagittal and coronal reformats were performed. FINDINGS: The vertebral bodies demonstrate normal height and alignment. No evidence of acute fracture or subluxation.. Moderate multilevel degenerative changes. No prevertebral soft tissue swelling is seen. The posterior facets are well aligned. Normal alignment of the skull base with the cervical spine is seen. The lung apices are unremarkable. IMPRESSION: No evidence of acute osseous abnormality of the cervical spine.
[2024-12-11] MEDS ORDERED: NA CHLORIDE 0.9% 100 ML ONE (13:24)
[2024-12-11] MEDS ORDERED: LEVETIRACETAM 500 MG/5 ML VIAL IV ONE (13:24)
[2024-12-11 13:42] VITALS: TEMP 98.1
[2024-12-11 13:43] VITALS: BP 158/61; O2SAT 100
--- NOTE | 2024-12-11 14:21 | RAD REPORT ---
EXAMINATION: ONE VIEW CHEST XR CLINICAL INDICATION: COUGH TECHNIQUE: Frontal chest projection is submitted. Examination is limited by patient positioning and t echnique. COMPARISON: 11/26/2024 FINDINGS: The lungs are well inflated and clear. The heart is normal in size. Sternotomy wires. Multilead pacer device. IMPRESSION: No acute intrathoracic abnormalities.
--- NOTE | 2024-12-16 12:37 | EKG ---
Test Date: 2024-12-11 Test Time: 12:36:13 Cutter Machine Tender: AM MEASUREMENT RESULTS: Intervals: Rate: 69 IL: 134 QRSD: 70 QT: 426 QTc: 456 [place]: P: 56 IL: 134 QRS: 70 T: 52 INTERPRETIVE STATEMENTS: Normal sinus rhythm Cannot rule out Inferior infarct, age undetermined Abnormal ECG Compared to ECG 11/26/2024 09:34:16 Myocardial infarct finding now present Atrial-paced complex(es) or rhythm no longer present Ventricular-paced complex(es) or rhythm no longer present Electronically Signed On 12-16-24 12:27:24 CDT by Horacio Rae
== END 2024-12-11 13:37 | disposition short-term general hospital (02) ==
LOC: ER 11:45
DX: S06.6X0A Traumatic subarachnoid hemorrhage without loss of consciousness, initial encounter (principal); W18.30XA Fall on same level, unspecified, initial encounter; E11.9 Type 2 diabetes mellitus without complications; I10 Essential (primary) hypertension; Z95.1 Presence of aortocoronary bypass graft
CPT/HCPCS: 96361; 93005; 85025; 80048; 36415; 83735; 85610; 80076; 84484; 83880; 70450; 71250; 72125; 74176; 71045; 96374; 99285; J1953; J7030